=== PATIENT | male | born 1950 | race Caucasian/White ===

== ENCOUNTER 2020-11-25 13:51 | Observation (INO) ==
[2020-11-25] MEDS ORDERED: SODIUM CHLORIDE 0.9% 500 ML IV STA (14:06)
[2020-11-25] MEDS ORDERED: MoRPHine SULFATE 4 MG/ML 1 ML CARP\\VIAL IV PRN (14:06)
[2020-11-25] MEDS ORDERED: ONDANSETRON INJ 2 MG/ML 2 ML VIAL IV STA (14:06)
--- NOTE | 2020-11-25 14:11 | Emergency Department Note ---
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 He has had bilateral lower abdominal pain, vomiting, some loose stool. His pain has increased over the last couple of weeks and the pain is now a 9 on a scale of 1- 10. He has noticed a fever. He has had some cough, no congestion. No urinary complaints. No blood in the stool or the vomit. The patient denies ever having abdominal surgery. He denies eating anything that may have caused this issue. There have been no sick contacts. The patient does not use alcohol daily. He is on Eliquis for A. fib. REVIEW OF SYSTEMS: See HPI for pertinent positives and negatives. A total of ten systems were reviewed and were otherwise negative. PMHx/PSHx: See Below SOCIAL HISTORY: See Below. PHYSICAL EXAM: GENERAL: Patient is in no acute distress. HEENT: No acute trauma, normocephalic atraumatic, mucous membranes moist, no nasal congestion, no scleral icterus. NECK: No stridor, no adenopathy, no meningismus, trachea is midline. LUNGS: Clear to auscultation bilaterally, no wheeze, no rhonchi, breath sounds equal. HEART: Mildly tachycardic with an irregular rhythm, no obvious murmur. ABDOMEN: Soft, diffusely moderately tender, bowel sounds positive, no hernias, no peritonitis. Abdominal distention noted. EXTREMITIES: No cyanosis, full range of motion of all the joints without pain or difficulty, no signs for acute trauma. NEUROLOGIC: Oriented x 3, no acute motor or sensory deficits, no focal weakness. SKIN: No rash, no jaundice, no diaphoresis. DIFFERENTIAL DIAGNOSIS: Appendicitis, testicular torsion, infections, diverticulitis, UTI, obstruction, mesenteric ischemia, aortic pathology, inflammatory bowel disease, renal colic, PUD, pancreatitis, biliary pathology, hernia, volvulus, constipation, as well as other pathologies. EMERGENCY DEPARTMENT COURSE/PROCEDURES: ECG: Indication was abdominal pain. The ECG shows what appears to be atrial fibrillation with some PVCs. The rate is 93. The QTc is 460. There is an old septal infarct. There is some T wave inversion in the lateral leads. No ST elevation. Compared to an ECG from 03 June 2020, I see no significant change. Continuous Cardiac Monitoring: An order was placed for continuous cardiac monitoring. The monitor shows a rate of 85 with atrial fibrillation. MEDICAL DECISION MAKING: There is no leukocytosis or concerning anemia. There is a normal platelet count. There was a mild elevation to the INR at 1.2. Sodium was low at 127. No kidney failure. Lactic acid level was elevated consistent with possible infection versus dehydration. No concerning liver enzyme elevation. Ammonia level was normal. There was no pancreatitis. ECG shows atrial fibrillation, no acute ischemia. Cardiac enzyme testing x1 is not consistent with acute cardiac injury. Urinalysis does not show infection. Alcohol level was low at 5.6. Covid test was negative. Chest x-ray shows potential right lower lung pneumonia. No CHF. Abdominal and pelvis CT shows what appears to be an enteritis or ileus. There was a small amount of ascites. No signs of acute surgical process by CT scanning. On exam, the patient was not toxic. He was not febrile. He did not have peritonitis. The patient was given IV saline, 1 L. He received IV Zosyn as antibiotic coverage. He was given IV Zofran. He received IV morphine as needed for pain. The patient is hyponatremic. He has gastroenteritis or an ileus. He has been vomiting for 3 weeks. He has abdominal distention and abdominal pain. He may have a pneumonia based on his chest x-ray. Given his findings, given his history, I do think a hospital stay would be warranted. I did speak with the patient and case management. The on-call hospitalist was consulted. Past Med/Surg History Medical History Alcohol abuse Anxiety Atrial fibrillation CKD (chronic kidney disease), stage III COPD (chronic obstructive pulmonary disease) DM2 (diabetes mellitus, type 2) Fracture dislocation of right ankle GERD (gastroesophageal reflux disease) HLD (hyperlipidemia) HTN (hypertension) Left ventricular dysfunction Surgical History (Updated 11/25/20 @ 20:15 by Dayana Lopez PA-C) History of ankle surgery History of cardiac cath 2008-nonocclussive CAD Family History (Updated 11/25/20 @ 20:16 by Dayana Lopez PA-C) Brother Cancer pancreatic cancer Mother Diabetes Sister Diabetes Father Heart disease Social History Smoking Status: Former smoker Tobacco Type: Cigarettes Hx Alcohol Use: Yes Alcohol type: beer Hx Substance Use: No Preferred Language: Serbian Communication Ability: Effective Beliefs That Will Affect Care: None marital status: Unknown Current Living Situation: Alone How many Children do You have: 2 Feels Safe at Home: Yes Safety Concerns: Feels Safe At This Time Allergies Allergies Allergy/AdvReac Type Severity Reaction Status Date / Time No Known Allergies Allergy Verified 11/25/20 17:25 Home Meds Home Medications Medication Instructions Recorded Confirmed albuterol 90 - 180 mcg INHALATION Q4 PRN 11/25/20 11/25/20 apixaban [Eliquis] 5 mg PO BID 11/25/20 11/25/20 atorvastatin 40 mg PO DAILY 11/25/20 11/25/20 budesonide-formoterol [Symbicort] 2 puff INHALATION BID 11/25/20 11/25/20 lisinopril 5 mg PO DAILY 11/25/20 11/25/20 metformin 500 mg PO BID 11/25/20 11/25/20 metoprolol tartrate 25 mg PO BID 11/25/20 11/25/20 nortriptyline [Pamelor] 25 mg PO HS 11/25/20 11/25/20 polyethylene glycol 3350 [Miralax] 17 g PO DAILY PRN 11/25/20 11/25/20 semaglutide [Ozempic] 0.5 mg SUBCUT WK 11/25/20 11/25/20 Results & Data (ED) Vital Signs Vital Signs - 24 hr 11/25/20 13:54 11/25/20 15:00 11/25/20 17:00 Temperature 36.0 C L Temperature Source Oral Pulse Rate 104 H Pulse Rate [Apical] 85 101 H Pulse Rhythm Regular Pulse Rhythm [Apical] Regular Regular Pulse Strength Normal Pulse Strength [Apical] Normal Respiratory Rate 18 18 Respiratory Effort / Characteristics Non-Labored Spontaneous Non-Labored Spontaneous Respiratory Depth Normal Normal Respiratory Pattern Regular Blood Pressure 174/103 H Blood Pressure [Left Arm] 152/98 H Blood Pressure Mean 126 Blood Pressure Mean [Left Arm] 116 Blood Pressure Position Sitting Blood Pressure Position [Left Arm] Pulse Oximetry 98 98 94 Oxygen Delivery Method Room Air Room Air Room Air Sepsis Recent Fever Within 48 Hours No Sepsis New/Unexplained Change in Mental Status No Sepsis Action Taken by Nursing No Action Required 11/25/20 19:00 Temperature Temperature Source Pulse Rate Pulse Rate [Apical] 94 H Pulse Rhythm Pulse Rhythm [Apical] Pulse Strength Pulse Strength [Apical] Respiratory Rate 18 Respiratory Effort / Characteristics Non-Labored Spontaneous Respiratory Depth Normal Respiratory Pattern Blood Pressure Blood Pressure [Left Arm] 157/111 H Blood Pressure Mean Blood Pressure Mean [Left Arm] 126 Blood Pressure Position Blood Pressure Position [Left Arm] Semi-fowlers Pulse Oximetry 93 Oxygen Delivery Method Room Air Sepsis Recent Fever Within 48 Hours Sepsis New/Unexplained Change in Mental Status Sepsis Action Taken by Group Home Medications Current Medication List: was personally reviewed by me Laboratory Data Attestation: I reviewed the patient's lab results. Result diagrams: 11/26/20 08:15 11/26/20 08:15 Lab Results 11/25/20 11/25/20 11/25/20 Range/Units 13:23 14:52 14:52 WBC 8.50 (4.8-10.8) K/uL RBC 4.54 L (4.7-6.1) M/uL Hgb 14.3 (14.0-18.0) g/dL Hct 40.2 L (42-52) % MCV 88.5 (80-100) fL MCH 31.5 (25-34) pg MCHC 35.6 (32-36) g/dL RDW Std Deviation 43.6 (36.4-46.3) fL RDW Coeff of Cole 13.4 (11.5-14.5) % Plt Count 219 (130-400) K/uL MPV 11.0 H (7.4-10.4) fL Immature Gran % (Auto) 0.5 % Neut % (Auto) 67.2 % Lymph % (Auto) 21.5 % [place] % (Auto) 10.2 % Eos % (Auto) 0.2 % Baso % (Auto) 0.4 % Neut # (Auto) 5.71 (1.4-6.5) K/uL Lymph # (Auto) 1.83 (1.2-3.4) K/uL [place] # (Auto) 0.87 H (0.11-0.59) K/uL Eos # (Auto) 0.02 (0-0.5) K/uL Baso # (Auto) 0.03 (0-0.2) K/uL Immature Gran # (Auto) 0.04 H (0.00-0.02) K/uL PT 12.1 H (9.0-12.0) Seconds INR 1.2 H (0.9-1.1) APTT 29.1 (21.0-31.0) Seconds PTT Ratio 1.1 Sodium (136-145) mmol/L Potassium (3.5-5.1) mmol/L Chloride (98-107) mmol/L Carbon Dioxide (21-32) mmol/L Anion Gap (3-11) BUN (7-18) mg/dl Creatinine (0.6-1.4) mg/dl Est Cr Clr Drug Dosing Est GFR ( Amer) ml/min Est GFR (Non-Af Amer) ml/min BUN/Creatinine Ratio (10-20) Glucose (70-99) mg/dl Lactate (0.4-2.0) mmol/L Calcium (8.5-10.1) mg/dl Magnesium (1.8-2.4) mg/dl Total Bilirubin (0.2-1) mg/dl AST (15-37) U/L ALT (12-78) U/L Alkaline Phosphatase (45-117) U/L Ammonia (11-32) umol/L Troponin I (0-0.045) ng/ml NT-Pro-B Natriuret Pep (0-900) pg/ml Total Protein (6.4-8.2) gm/dl Albumin (3.4-5.0) gm/dl Globulin (2.5-4.0) gm/dl Albumin/Globulin Ratio (0.9-2) Lipase (73-393) U/L Procalcitonin < 0.05 (0-0.5) ng/ml Ethyl Alcohol mg/dL (0-3) mg/dl 11/25/20 11/25/20 11/25/20 Range/Units 14:52 14:52 14:52 WBC (4.8-10.8) K/uL RBC (4.7-6.1) M/uL Hgb (14.0-18.0) g/dL Hct (42-52) % MCV (80-100) fL MCH (25-34) pg MCHC (32-36) g/dL RDW Std Deviation (36.4-46.3) fL RDW Coeff of Cole (11.5-14.5) % Plt Count (130-400) K/uL MPV (7.4-10.4) fL Immature Gran % (Auto) % Neut % (Auto) % Lymph % (Auto) % [place] % (Auto) % Eos % (Auto) % Baso % (Auto) % Neut # (Auto) (1.4-6.5) K/uL Lymph # (Auto) (1.2-3.4) K/uL [place] # (Auto) (0.11-0.59) K/uL Eos # (Auto) (0-0.5) K/uL Baso # (Auto) (0-0.2) K/uL Immature Gran # (Auto) (0.00-0.02) K/uL PT (9.0-12.0) Seconds INR (0.9-1.1) APTT (21.0-31.0) Seconds PTT Ratio Sodium 127 L (136-145) mmol/L Potassium 4.1 (3.5-5.1) mmol/L Chloride 92 L (98-107) mmol/L Carbon Dioxide 25 (21-32) mmol/L Anion Gap 10.0 (3-11) BUN 13 (7-18) mg/dl Creatinine 0.98 (0.6-1.4) mg/dl Est Cr Clr Drug Dosing Not Reportable Est GFR ( Amer) 90.8 ml/min Est GFR (Non-Af Amer) 78.4 ml/min BUN/Creatinine Ratio 12.9 (10-20) Glucose 271 H (70-99) mg/dl Lactate 2.9 H* (0.4-2.0) mmol/L Calcium 8.5 (8.5-10.1) mg/dl Magnesium 2.2 (1.8-2.4) mg/dl Total Bilirubin 0.6 (0.2-1) mg/dl AST 78 H (15-37) U/L ALT 64 (12-78) U/L Alkaline Phosphatase 109 (45-117) U/L Ammonia 14.0 (11-32) umol/L Troponin I 0.038 (0-0.045) ng/ml NT-Pro-B Natriuret Pep (0-900) pg/ml Total Protein 7.4 (6.4-8.2) gm/dl Albumin 3.7 (3.4-5.0) gm/dl Globulin 3.7 (2.5-4.0) gm/dl Albumin/Globulin Ratio 1.0 (0.9-2) Lipase 118 (73-393) U/L Procalcitonin (0-0.5) ng/ml Ethyl Alcohol mg/dL (0-3) mg/dl 11/25/20 11/25/20 Range/Units 14:52 15:23 WBC (4.8-10.8) K/uL RBC (4.7-6.1) M/uL Hgb (14.0-18.0) g/dL Hct (42-52) % MCV (80-100) fL MCH (25-34) pg MCHC (32-36) g/dL RDW Std Deviation (36.4-46.3) fL RDW Coeff of Cole (11.5-14.5) % Plt Count (130-400) K/uL MPV (7.4-10.4) fL Immature Gran % (Auto) % Neut % (Auto) % Lymph % (Auto) % [place] % (Auto) % Eos % (Auto) % Baso % (Auto) % Neut # (Auto) (1.4-6.5) K/uL Lymph # (Auto) (1.2-3.4) K/uL [place] # (Auto) (0.11-0.59) K/uL Eos # (Auto) (0-0.5) K/uL Baso # (Auto) (0-0.2) K/uL Immature Gran # (Auto) (0.00-0.02) K/uL PT (9.0-12.0) Seconds INR (0.9-1.1) APTT (21.0-31.0) Seconds PTT Ratio Sodium (136-145) mmol/L Potassium (3.5-5.1) mmol/L Chloride (98-107) mmol/L Carbon Dioxide (21-32) mmol/L Anion Gap (3-11) BUN (7-18) mg/dl Creatinine (0.6-1.4) mg/dl Est Cr Clr Drug Dosing Est GFR ( Amer) ml/min Est GFR (Non-Af Amer) ml/min BUN/Creatinine Ratio (10-20) Glucose (70-99) mg/dl Lactate (0.4-2.0) mmol/L Calcium (8.5-10.1) mg/dl Magnesium (1.8-2.4) mg/dl Total Bilirubin (0.2-1) mg/dl AST (15-37) U/L ALT (12-78) U/L Alkaline Phosphatase (45-117) U/L Ammonia (11-32) umol/L Troponin I (0-0.045) ng/ml NT-Pro-B Natriuret Pep 9733 H (0-900) pg/ml Total Protein (6.4-8.2) gm/dl Albumin (3.4-5.0) gm/dl Globulin (2.5-4.0) gm/dl Albumin/Globulin Ratio (0.9-2) Lipase (73-393) U/L Procalcitonin (0-0.5) ng/ml Ethyl Alcohol mg/dL 5.6 H (0-3) mg/dl Administered Medications Apixaban (Apixaban 5 Mg Tablet) 5 mg PO BID [facility] Stop: 12/25/20 23:25 Last Admin: 11/26/20 08:26 Dose: 5 mg Documented by: [id number] Admin: 11/26/20 01:15 Dose: 5 mg Documented by: [id number] Atorvastatin Calcium (Atorvastatin 40 Mg Tab) 40 mg PO DAILY [facility] Stop: 12/26/20 08:59 Last Admin: 11/26/20 08:25 Dose: 40 mg Documented by: [id number] Chlordiazepoxide HCl (Chlordiazepoxide Hcl 25 Mg Cap) 25 mg PO Q6H [facility]; Taper Stop: 11/27/20 23:59 Last Admin: 11/26/20 12:56 Dose: 25 mg Documented by: [id number] Admin: 11/26/20 05:24 Dose: 25 mg Documented by: [id number] Admin: 11/26/20 01:17 Dose: 25 mg Documented by: [id number] Fluticasone/Vilanterol (Fluticasone/Vilanterol 200/25mcg 14 Puffs/Inhaler) 1 puffs INH DAILY [facility] Stop: 12/26/20 08:59 Last Admin: 11/26/20 08:32 Dose: 1 puffs Documented by: [id number] Folic Acid (Folic Acid 1 Mg Tab) 1 mg PO QAM [facility] Stop: 12/26/20 08:59 Last Admin: 11/26/20 08:26 Dose: 1 mg Documented by: [id number] Piperacillin Sod/Tazobactam (Sod 3.375 gm/ Dextrose) 115 mls @ 28.75 mls/hr IV Q8H [facility]; Protocol Stop: 12/06/20 03:59 Last Admin: 11/26/20 13:24 Dose: 28.8 mls/hr Documented by: [id number] Infusion: 11/26/20 08:50 Dose: 0 mls/hr Documented by: [id number] Admin: 11/26/20 04:08 Dose: 28.8 mls/hr Documented by: [id number] Insulin Aspart (Insulin Aspart 100 Units/Ml 3 Ml Pen) 0 units SC ACHS [facility] Stop: 12/25/20 23:25 Last Admin: 11/26/20 12:12 Dose: 3 units Documented by: [id number] Cosigned by: [id number] Admin: 11/26/20 08:29 Dose: 2 units Documented by: [id number] Cosigned by: [id number] Admin: 11/26/20 01:14 Dose: 3 units Documented by: [id number] Cosigned by: [id number] Insulin Glargine (Insulin Glargine Solostar 100 Units/Ml 3 Ml Pen) 0 units SC BID [facility] Stop: 12/25/20 23:25 Last Admin: 11/26/20 08:30 Dose: 10 units Documented by: [id number] Cosigned by: [id number] Admin: 11/26/20 01:14 Dose: 10 units Documented by: [id number] Cosigned by: [id number] Ipratropium [place] (Ipratropium [place] Neb Soln 0.02% 2.5 Ml Vial) 0.5 mg INH Q6R [facility] Stop: 12/26/20 00:59 Last Admin: 11/26/20 13:14 Dose: 0.5 mg Documented by: [id number] Admin: 11/26/20 07:44 Dose: 0.5 mg Documented by: [id number] Admin: 11/26/20 01:00 Dose: 0.5 mg Documented by: [id number] Levalbuterol HCl (Levalbuterol 1.25mg/0.5ml Neb) 1.25 mg INH Q6R [facility] Stop: 12/26/20 00:59 Last Admin: 11/26/20 13:14 Dose: 1.25 mg Documented by: [id number] Admin: 11/26/20 07:44 Dose: 1.25 mg Documented by: [id number] Admin: 11/26/20 01:00 Dose: 1.25 mg Documented by: [id number] Lisinopril (Lisinopril 5 Mg Tab) 5 mg PO DAILY [facility] Stop: 12/26/20 08:59 Last Admin: 11/26/20 09:23 Dose: 5 mg Documented by: [id number] Metoprolol Tartrate (Metoprolol Tartrate 25 Mg Tab) 25 mg PO BID [facility] Stop: 12/25/20 23:25 Last Admin: 11/26/20 09:24 Dose: 25 mg Documented by: [id number] Admin: 11/26/20 01:15 Dose: 25 mg Documented by: [id number] Multivitamins (Multivitamin Tab) [facility] Stop: 12/26/20 08:59 Last Admin: 11/26/20 09:24 Dose: 1 tab Documented by: [id number] Nortriptyline HCl (Nortriptyline Hcl 25 Mg Cap) 25 mg PO HS [facility] Stop: 12/25/20 23:25 Last Admin: 11/26/20 01:15 Dose: 25 mg Documented by: [id number] Thiamine HCl (Thiamine Hcl 100 Mg Tab) 100 mg PO QAM [facility] Stop: 12/26/20 08:59 Last Admin: 11/26/20 09:23 Dose: 100 mg Documented by: [id number] Discontinued Medications Albuterol (Albut/Ipratrop 3mg/0.5mg Neb 3 Ml Vial) 3 ml NEB NOW STA Stop: 11/25/20 19:22 Last Admin: 11/25/20 20:30 Dose: 3 ml Documented by: [id number] Furosemide (Furosemide 40 Mg/4 Ml Vial) 60 mg IV NOW STA Stop: 11/25/20 19:38 Last Admin: 11/25/20 22:18 Dose: 80 mg Documented by: [id number] Sodium Chloride (Nss) 500 mls @ 999 mls/hr IV .Q31M STA Stop: 11/25/20 14:36 Last Infusion: 11/25/20 16:14 Dose: 0 mls/hr Documented by: [id number] Admin: 11/25/20 15:00 Dose: 999 mls/hr Documented by: [id number] Piperacillin Sod/Tazobactam Sod (Zosyn) 4.5 gm in 120 mls @ 240 mls/hr IV NOW ONE Stop: 11/25/20 15:33 Last Infusion: 11/25/20 16:24 Dose: 0 mls/hr Documented by: [id number] Admin: 11/25/20 15:54 Dose: 240 mls/hr Documented by: [id number] Sodium Chloride (Nss 1000ml) 500 mls @ 999 mls/hr IV .Q31M ONE Stop: 11/25/20 16:34 Last Infusion: 11/25/20 17:40 Dose: 0 mls/hr Documented by: [id number] Admin: 11/25/20 17:08 Dose: 999 mls/hr Documented by: [id number] Ioversol (Optiray 320 150ml) 100 ml IV ONCE ONE Stop: 11/25/20 16:58 Last Admin: 11/25/20 16:57 Dose: 100 ml Documented by: [id number] Lisinopril (Lisinopril 5 Mg Tab) 5 mg PO NOW STA Stop: 11/25/20 21:22 Last Admin: 11/25/20 22:18 Dose: 5 mg Documented by: [id number] Morphine Sulfate (Morphine Sulfate 4 Mg/Ml 1 Ml Carp\Vial) 4 mg IV Q15M PRN PRN Reason: Pain Stop: 12/09/20 14:05 Last Admin: 11/25/20 15:00 Dose: 4 mg Documented by: [id number] Ondansetron HCl (Ondansetron Inj 2 Mg/Ml 2 Ml Vial) 4 mg IV NOW STA Stop: 11/25/20 14:07 Last Admin: 11/25/20 15:00 Dose: 4 mg Documented by: [id number] Potassium Chloride (Potassium Chloride Crtab 20 Meq Tabcr) 40 meq PO ONE ONE Stop: 11/26/20 09:20 Last Admin: 11/26/20 09:36 Dose: 40 meq Documented by: [id number] Imaging Data Radiologist's Impression: Chest X-Ray 11/25/20 14:06 XR chest 1V portable CLINICAL HISTORY: Pain, radiating to the abdomen COMPARISON STUDY: 06/03/2020 FINDINGS: The heart is enlarged. There is no failure. There are increased right basilar markings, possibly representing a pneumonitis. There is mild mediastinal fullness. This appears to be secondary to fat deposition on the prior CT scan performed December 2019[. There is no free intraperitoneal air IMPRESSION: 1. Subtle right basilar airspace opacities possibly representing a pneumonitis. Clinical and radiographic follow-up are recommended ACT 112: Negative or not required by law. Electronically signed by: Alejandro Witt M.D. 11/25/2020 2:48 PM ABDOMEN AND PELVIS CT WITH IV CONTRAST CT DOSE: 893.63 mGycm HISTORY: Acute generalized abdominal pain and nausea with possible bowel obstruction poss obstruc TECHNIQUE: Multiaxial CT images of the abdomen and pelvis were performed following the IV administration of 100 cc of Optiray, A dose lowering technique was utilized adhering to the principles of ALARA. COMPARISON STUDY: CT abdomen pelvis 12/26/2019 FINDINGS: Cardiac megaly. Coronary artery calcifications. Moderate right and small left pleural effusions. Dependent bibasilar opacities suggest atelectasis. No pneumatosis or pneumoperitoneum. Unremarkable spleen, pancreas and adrenal glands. Mild gallbladder distention with equivocal wall thickening. Mild pericholecystic edema/fluid. There is suggested hepatic steatosis. The liver is otherwise unremarkable. Mixing artifact noted within the portal vein. Unremarkable kidneys. There is no hydronephrosis. Mild to moderate urinary bladder wall thickening. Prostamegaly. Severe atherosclerotic plaque of the abdominal aorta and branch vessels. There is severe narrowing of the right common femoral artery. No adenopathy. 1.3 cm fatty attenuating focus of the descending colon 9 image 225, possibly a lipoma. The visualized appendix is noninflamed. No bowel obstruction or bowel wall thickening. There are a few scattered small bowel air-fluid levels noted within the abdomen and pelvis. Trace abdominal pelvic ascites. Calcifications of the subcutaneous left chest wall anteriorly. Degenerative changes of the spine, pelvis and hips. IMPRESSION: 1. Moderate right and small left pleural effusions with trace abdominopelvic ascites. 2. No bowel obstruction or bowel wall thickening. Noninflamed appendix. 3. Scattered small bowel air-fluid levels within the abdomen and pelvis are likely physiologic. Considering reported clinical history of nausea, a mild enteritis could appear similarly. 4. Prostamegaly with urinary bladder wall thickening suggestive of chronic bladder outlet obstruction. Correlate with urinalysis. 5. Equivocal wall thickening of the gallbladder, likely secondary to volume overload. ACT 112: Negative or not required by law. The above report was generated using voice recognition software. It may contain grammatical, syntax or spelling errors. Electronically signed by: Gino Wagner M.D. 11/25/2020 5:16 PM Discharge Plan Visit Data Chief Complaint: Abdominal Pain Stated Complaint: ABDOMINAL PAINS,VOMITING,LIGHTHEADED ED Provider: Darren Avendaño Discharge Problem: Lower abdominal pain, Vomiting, Alcohol abuse, Acute hyponatremia, Cough Patient Disposition: Admitted As Inpatient Condition: Fair Discharge Instructions Interventions: ED Discharge Assessment Last Done: 11/25/20 22:35 Discharge Problem: Vomiting Qualifiers: Vomiting type: unspecified Vomiting Intractability: non-intractable Nausea presence: with nausea Qualified Code(s): R11.2 - Nausea with vomiting, unspecified
--- NOTE | 2020-11-25 14:50 | XRay Report ---
XR chest 1V portable CLINICAL HISTORY: Pain, radiating to the abdomen COMPARISON STUDY: 06/03/2020 FINDINGS: The heart is enlarged. There is no failure. There are increased right basilar markings, pos sibly representing a pneumonitis. There is mild mediastinal fullness. This appears to be secondary to fat deposition on the prior CT scan performed December 2019[. There is no free intraperitoneal air IMPRESSION: 1. Subtle right basilar airspace opacities possibly representing a pneumonitis. Clinical and radiogra [facility] follow-up are recommended ACT 112: Negative or not required by law. Electronically signed by: Alejandro Witt M.D. 11/25/2020 2:48 PM
[2020-11-25] MEDS ORDERED: PIPERACILL/TAZOBAC CONSULT ACTIVE PRN (15:04)
[2020-11-25] MEDS ORDERED: PIPERACILLIN/TAZOBACTAM 4.5 GM/120 ML BAG IV ONE (15:04)
[2020-11-25 15:10] LABS: Basophils # (auto) 0.03 K/uL (0-0.2); Basophils % (auto) 0.4 %; Eosinophils # (auto) 0.02 K/uL (0-0.5); Eosinophils % (auto) 0.2 %; Hematocrit (blood only) 40.2 % (42-52); Hemoglobin 14.3 g/dL (14.0-18.0); Immature Granulocytes # (auto) 0.04 K/uL (0.00-0.02); Immature Granulocytes % (auto) 0.5 %; Lymphocytes # (auto) 1.83 K/uL (1.2-3.4); Lymphocytes % (auto) 21.5 %; Mean Corpuscular Hemoglobin 31.5 pg (25-34); Mean Corpuscular Hgb Conc 35.6 g/dL (32-36); Mean Corpuscular Volume 88.5 fL (80-100); Monocytes # (auto) 0.87 K/uL (0.11-0.59); Monocytes % (auto) 10.2 %; Neutrophils # (auto) 5.71 K/uL (1.4-6.5); Neutrophils % (auto) 67.2 %; Platelet Count 219 K/uL (130-400); RDW Coefficient of Variation 13.4 % (11.5-14.5); RDW Standard Deviation 43.6 fL (36.4-46.3); Red Blood Count 4.54 M/uL (4.7-6.1)
[2020-11-25 15:26] LABS: INR 1.2 (0.9-1.1); Partial Thromboplastin Ratio 1.1; Partial Thromboplastin Time 29.1 Seconds (21.0-31.0); Prothrombin Time 12.1 Seconds (9.0-12.0)
[2020-11-25 15:30] LABS: Alanine Aminotransferase 64 U/L (12-78); Albumin Level 3.7 gm/dl (3.4-5.0); Aspartate Aminotransferase 78 U/L (15-37); BUN Creatinine Ratio 12.9 (10-20); Blood Urea Nitrogen 13 mg/dl (7-18); Calcium 8.5 mg/dl (8.5-10.1); Carbon Dioxide 25 mmol/L (21-32); Chloride 92 mmol/L (98-107); Est GFR (African American) 90.8 ml/min; Est GFR (Non-African American) 78.4 ml/min; Glucose 271 mg/dl (70-99); Lipase 118 U/L (73-393); Magnesium 2.2 mg/dl (1.8-2.4); Potassium 4.1 mmol/L (3.5-5.1); Sodium 127 mmol/L (136-145)
[2020-11-25 15:35] LABS: Alkaline Phosphatase 109 U/L (45-117); Bilirubin,Total 0.6 mg/dl (0.2-1); Globulin 3.7 gm/dl (2.5-4.0); Total Protein 7.4 gm/dl (6.4-8.2); Troponin I 0.038 ng/ml (0-0.045)
[2020-11-25] MEDS ORDERED: SODIUM CHLORIDE 0.9% 1000ML 500 ML IV ONE (16:04)
[2020-11-25] MEDS ORDERED: OPTIRAY 320 150ml IV ONE ×2 (16:51→16:57)
--- NOTE | 2020-11-25 17:17 | CT Scan Report ---
ABDOMEN AND PELVIS CT WITH IV CONTRAST CT DOSE: 893.63 mGycm HISTORY: Acute generalized abdominal pain and nausea with possible bowel obstruction poss obstruc TECHNIQUE: Multiaxial CT images of the abdomen and pelvis were performed following the IV administrat ion of 100 cc of Optiray, A dose lowering technique was utilized adhering to the principles of ALARA . COMPARISON STUDY: CT abdomen pelvis 12/26/2019 FINDINGS: Cardiac megaly. Coronary artery calcifications. Moderate right and small left pleural effusions. Depe ndent bibasilar opacities suggest atelectasis. No pneumatosis or pneumoperitoneum. Unremarkable splee n, pancreas and adrenal glands. Mild gallbladder distention with equivocal wall thickening. Mild murali cholecystic edema/fluid. There is suggested hepatic steatosis. The liver is otherwise unremarkable. M ixing artifact noted within the portal vein. Unremarkable kidneys. There is no hydronephrosis. Mild to moderate urinary bladder wall thickening. P rostamegaly. Severe atherosclerotic plaque of the abdominal aorta and branch vessels. There is severe narrowing of the right common femoral artery. No adenopathy. 1.3 cm fatty attenuating focus of the descending colon 9 image 225, possibly a lipoma. The visualized appendix is noninflamed. No bowel obstruction or bowel wall thickening. There are a few scattered sm all bowel air-fluid levels noted within the abdomen and pelvis. Trace abdominal pelvic ascites. Calci fications of the subcutaneous left chest wall anteriorly. Degenerative changes of the spine, pelvis a nd hips. IMPRESSION: 1. Moderate right and small left pleural effusions with trace abdominopelvic ascites. 2. No bowel obstruction or bowel wall thickening. Noninflamed appendix. 3. Scattered small bowel air-fluid levels within the abdomen and pelvis are likely physiologic. Consi dering reported clinical history of nausea, a mild enteritis could appear similarly. 4. Prostamegaly with urinary bladder wall thickening suggestive of chronic bladder outlet obstruction . Correlate with urinalysis. 5. Equivocal wall thickening of the gallbladder, likely secondary to volume overload. ACT 112: Negative or not required by law. The above report was generated using voice recognition software. It may contain grammatical, syntax o r spelling errors. Electronically signed by: Gino Wagner M.D. 11/25/2020 5:16 PM
[2020-11-25] MEDS ORDERED: ALBUT/IPRATROP 3MG/0.5MG NEB 3 ML VIAL NEB STA (19:21)
[2020-11-25] MEDS ORDERED: FUROSEMIDE 40 MG/4 ML VIAL IV STA (19:37)
--- NOTE | 2020-11-25 19:44 | History & Physical Report ---
Date of Service November 25, 2020 Assessment & Plan (1) Fluid overload: (2) Leg edema: (3) SOB (shortness of breath): H/O left ventricular dysfunction (Echo 07/2020 EF: 35%) Pt is 70 y/o M with PMH DM II, CKD III, COPD, HLD, atrial fibrillation on Eliquis, left ventricular dysfunction with EF 35-39% in 07/2020, anxiety, GERD presented to ER with complaint of abdominal distention, shortness of breath. Increased SOB, abdominal distension, BLE edema, orthopnea over past 3 weeks In ER pt afebrile, P: 104, R: 18, BP: 174/103, 98% on RA. No leukocytosis, Lactate: 2.9, procalcitonin: <0.05. CXR: Subtle right basilar airspace opacities possibly representing a pneumonitis. Clinical and radiographic follow-up are recommended SOB likely secondary to fluid overload secondary to systolic CHF, possible COPD exacerbation however without wheezing on exam. Possible pneumonia In ER given 1L NSS, zosyn -Blood cultures pending -Hold on further IVF at this time as is volume overloaded on exam -Dose Lasix 60mg IV now -Low sodium diet, monitor I&O's, daily weight -BNP pending -Nebs Q6H -Continue home inhalers -Continue Zosyn for now -Repeat lactate 1.8 -Echo -Cardiology consult -RLE edema greater than LLE. Pending Doppler to R/O DVT (4) Abdominal distention: (5) Vomiting: C/O abdominal distension x 3 weeks. Vomiting, diarrhea x 3 days No leukocytosis, normal lipase, AST:78, ALT: 64, ALK Phos: 109, INR: 1.2, UA: unreamarkable CT ABD/PELVIS: Moderate right and small left pleural effusions with trace abdominopelvic ascites. No bowel obstruction or bowel wall thickening. Noninflamed appendix. Scattered small bowel air-fluid levels within the abdomen and pelvis are likely physiologic. Considering reported clinical history of nausea, a mild enteritis could appear similarly. Prostamegaly with urinary bladder wall thickening suggestive of chronic bladder outlet obstruction. Correlate with urinalysis. Equivocal wall thickening of the gallbladder, likely secondary to volume overload. Abdominal distention likely secondary to volume overload. Possible ascites DDX: Enteritis. Does not have tenderness on abdominal exam at this time, less likely mesenteric ischemia -Clear liquid diet for now -Repeat lactate: 1.8 -obtain c-diff, stool cultures if recurrent diarrhea -CBC, CMP in am -If no improvement may need to consider US for ascites or GI consult (6) Hyponatremia: Na: 127; was 130-133 in 2019 -Received 1L NSS in ER -Monitor BMP (7) Atrial fibrillation: On Eliquis A-fib, rate 104 down to 90's in ER -Continue Eliquis -Continue metoprolol tartrate (8) DM2 (diabetes mellitus, type 2): A1c: 9.3 on 07/2020 -Hold metformin, Ozempic -Basal bolus insulin per protocol (9) CKD (chronic kidney disease), stage III: Cr: 0.98 -Monitor renal functions, avoid nephrotoxic agents when possible (10) HTN (hypertension): In ER BP: 174/103 down to 152/98 -Continue lisinopril, metoprolol tartrate (11) Alcohol abuse: Drinks at least 6 drinks daily. Last drink this am ETOH level: 5.6 -Alcohol withdrawal protocol -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, thiamine, folic acid daily DVT Prophylaxis -On Eliquis Full Code as per discussion with pt Follows with Dr De for routine care Pt was seen and care coordinated with Dr Buchanan. See addendum History of Present Illness Chief Complaint: Abdominal distention, SOB Primary Care Provider: Samir De MD Pt is 70 y/o M with PMH DM II, CKD III, COPD, HLD, atrial fibrillation on Eliquis, left ventricular dysfunction with EF 35-39% in 07/2020, anxiety, GERD presented to ER with complaint of abdominal distention, shortness of breath. Patient reports noticing increased abdominal distention for at least the past 3 weeks. Reports "gurgling" sensation to lower abdomen that he reports feels uncomfortable but does denies severe pain. Past 3 days with vomiting and reports had 2 episodes diarrhea. Tried taking Pepto-Bismol and Mylanta without much improvement. Also reports noticing increased bilateral lower extremity edema over the past several weeks, right extremity worse. Reports orthopnea worsening over the past month, but thinks has had it longer. Also complains of cough. Sometimes reports is productive but is unable to further describe. Reports ongoing SOB that has worsened over past month or so. States history of COPD and has wheezing episodes several times a day. He has been using his albuterol inhaler 4 times a day with relief of wheezing, no improvement of or thopnea. Did not have COVID-19 vaccine yet. Denies any ill contacts. Pt states drinks at least 6 beers a day. Last drank this morning. Denies history alcohol withdrawal. Denies fever/chills, diaphoresis, hematemesis, hematochezia, melena, FISHER, dizziness, syncope, vision changes, neck pain, CP, palpitations, hemoptysis, sore throat, choking, otalgia, rhinorrhea, paresthesias, weakness, rashes, uri nary symptoms. Allergies Allergy/AdvReac Type Severity Reaction Status Date / Time No Known Allergies Allergy Verified 11/25/20 17:25 Home Medications Medication Instructions Recorded Confirmed Type albuterol 90 - 180 mcg INHALATION Q4 PRN 11/25/20 11/25/20 History apixaban [Eliquis] 5 mg PO BID 11/25/20 11/25/20 History atorvastatin 40 mg PO DAILY 11/25/20 11/25/20 History budesonide-formoterol [Symbicort] 2 puff INHALATION BID 11/25/20 11/25/20 Hist ory lisinopril 5 mg PO DAILY 11/25/20 11/25/20 History metformin 500 mg PO BID 11/25/20 11/25/20 History metoprolol tartrate 25 mg PO BID 11/25/20 11/25/20 History nortriptyline [Pamelor] 25 mg PO HS 11/25/20 11/25/20 History polyethylene glycol 3350 [Miralax] 17 g PO DAILY PRN 11/25/20 11/25/20 History semaglutide [Ozempic] 0.5 mg SUBCUT WK 11/25/20 11/25/20 History Past Med/Surg History Medical History (Updated 11/25/20 @ 20:49 by Dayana Lopez PA-C) Alcohol abuse Anxiety Atrial fibrillation CKD (chronic kidney disease), stage III COPD (chronic obstructive pulmonary disease) DM2 (diabetes mellitus, type 2) Fracture dislocation of right ankle GERD (gastroesophageal reflux disease) HLD (hyperlipidemia) HTN (hypertension) Left ventricular dysfunction Surgical History (Updated 11/25/20 @ 20:15 by Dayana Lopez PA-C) History of ankle surgery History of cardiac cath 2009-nonocclussive CAD Family History (Updated 11/25/20 @ 20:16 by Dayana Lopez PA-C) Brother Cancer pancreatic cancer Mother Diabetes Sister Diabetes Father Heart disease Social History (Updated 11/25/20 @ 20:17 by Dayana Lopez PA-C) Smoking Status: Former smoker Tobacco Type: Cigarettes Hx Alcohol Use: Yes (at least 6 beers/day) Alcohol type: beer Hx Substance Use: No Feels Safe at Home: Yes Review of Systems Review of Systems: All systems reviewed & are unremarkable except as noted in HPI & below Physical Exam Physical Exam: General: no distress, overweight Head: normocephalic, atraumatic Eyes: PERRL, EOM's intact, conjunctiva non-injected, anicteric ENT: hard of hearing, normal inspection external ears, nose, mucous membranes moist Neck: supple, trachea midline Lungs: +orthopnea, 94% on RA, +rales bilateral bases, no wheezing/rhonchi CV: irregularly irregular, rate 98, no murmur, +2-3 pretibial edema, right LE worse than left Abd: +distended, normal BS, soft, non-tender to palpation Ext: no cyanosis, no erythema, no calf tenderness Neuro: A&O x 3, no focal deficits noted, normal affect Skin: warm, dry Results & Data Results & Data ([facility]) Vital Signs (Past 12 Hours) Vital Signs Temp Pulse Pulse Resp BP BP Pulse Ox 11/25/20 17:00 101 H 18 152/98 H 94 11/25/20 15:00 85 98 11/25/20 13:54 36.0 C L 104 H 18 174/103 H 98 Laboratory Results Short CBC 11/25/20 Range/Units 14:52 WBC 8.50 (4.8-10.8) K/uL Hgb 14.3 (14.0-18.0) g/dL Hct 40.2 L (42-52) % Plt Count 219 (130-400) K/uL BMP 11/25/20 14:52 Sodium 127 L Potassium 4.1 Chloride 92 L Carbon Dioxide 25 BUN 13 Creatinine 0.98 Glucose 271 H Calcium 8.5 Cardiac Enzymes 11/25/20 Range/Units 14:52 Troponin I 0.038 (0-0.045) ng/ml Liver Function 11/25/20 Range/Units 14:52 Total Bilirubin 0.6 (0.2-1) mg/dl AST 78 H (15-37) U/L ALT 64 (12-78) U/L Alkaline Phosphatase 109 (45-117) U/L Albumin 3.7 (3.4-5.0) gm/dl Diagnostic Findings Abdomen/Pelvis CT 11/25/20 14:[address] WITH IV CONTRAST CT DOSE: 893.63 mGycm HISTORY: Acute generalized abdominal pain and nausea with possible bowel obstruction poss obstruc TECHNIQUE: Multiaxial CT images of the abdomen and pelvis were performed following the IV administration of 100 cc of Optiray, A dose lowering technique was utilized adhering to the principles of ALARA. COMPARISON STUDY: CT abdomen pelvis 12/26/2019 FINDINGS: Cardiac megaly. Coronary artery calcifications. Moderate right and small left pleural effusions. Dependent bibasilar opacities suggest atelectasis. No pneumatosis or pneumoperitoneum. Unremarkable spleen, pancreas and adrenal glands. Mild gallbladder distention with equivocal wall thickening. Mild pericholecystic edema/fluid. There is suggested hepatic steatosis. The liver is otherwise unremarkable. Mixing artifact noted within the portal vein. Unremarkable kidneys. There is no hydronephrosis. Mild to moderate urinary bladder wall thickening. Prostamegaly. Severe atherosclerotic plaque of the abdominal aorta and branch vessels. There is severe narrowing of the right common femoral artery. No adenopathy. 1.3 cm fatty attenuating focus of the descending colon 9 image 225, possibly a lipoma. The visualized appendix is noninflamed. No bowel obstruction or bowel wall thickening. There are a few scattered small bowel air-fluid levels noted within the abdomen and pelvis. Trace abdominal pelvic ascites. Calcifications of the subcutaneous left chest wall anteriorly. Degenerative changes of the spine, pelvis and hips. IMPRESSION: 1. Moderate right and small left pleural effusions with trace abdominopelvic ascites. 2. No bowel obstruction or bowel wall thickening. Noninflamed appendix. 3. Scattered small bowel air-fluid levels within the abdomen and pelvis are likely physiologic. Considering reported clinical history of nausea, a mild enteritis could appear similarly. 4. Prostamegaly with urinary bladder wall thickening suggestive of chronic bladder outlet obstruction. Correlate with urinalysis. 5. Equivocal wall thickening of the gallbladder, likely secondary to volume overload. ACT 112: Negative or not required by law. The above report was generated using voice recognition software. It may contain grammatical, syntax or spelling errors. Electronically signed by: Gino Wagner M.D. 11/25/2020 5:16 PM Chest X-Ray 11/25/20 14:06 XR chest 1V portable CLINICAL HISTORY: Pain, radiating to the abdomen COMPARISON STUDY: 06/03/2020 FINDINGS: The heart is enlarged. There is no failure. There are increased right basilar markings, possibly representing a pneumonitis. There is mild mediastinal fullness. This appears to be secondary to fat deposition on the prior CT scan performed December 2019[. There is no free intraperitoneal air IMPRESSION: 1. Subtle right basilar airspace opacities possibly representing a pneumonitis. Clinical and radiographic follow-up are recommended ACT 112: Negative or not required by law. Electronically signed by: Alejandro Witt M.D. 11/25/2020 2:48 PM Code Status & VTE Plan VTE Prophylaxis Plan VTE Prophylaxis will be ordered: Yes Supervising Physician Co-Signing Physician Notes I saw this patient with the physician university administrative assistant, I participated in the history, physical, review of systems, and physical exam. I reviewed the medications with the patient and the physician university administrative assistant and helped reconcile the medications. I helped take a detailed family and social history as well. I formulated the assessment and plan personally with the physician university administrative assistant and went over it with the patient. ROS-No Headache, No Visual Changes, No Nausea, No Vomiting, No Fever, No Chills, No Neck Pain or Stiffness, No Chest Pain, No Palpitations, + SOB, + KAPLAN, +Cough, No Sputum, No Wheezing, No Abdominal Pain, No Diarrhea, No Hematemesis, No Hemoptysis, No Unexpected Weight Loss, No Flank pain, No Melena, No Hematochezia, No Frequency, No Urgency, No Burning, No Hematuria, No Rashes, No Diaphoresis. Appetite is Normal, +Edema Physical Exam Gen-AAO x 3, NAD, Afebrile Head-NCAT, EOMI, PERRLA, Anicteric Sclera, No Posterior Pharyngeal Erythema Neck-Supple, No JVD, No Thyromegaly, No Masses, No LAD, No Bruits Lungs- +Rales Bilat, No Rhonchi, No Wheezing, No Crepitus Chest-No S4, +S1, +S2, No S3, No Murmurs, No Rubs, No Gallops, No Ectopy Abdomen-Soft, Bowel Sounds Present, Non Tender, Non Distended, No Hepatomegaly, No Splenomegaly, No Palpable Masses, No Rebound, No Rigidity, No Guarding Musculoskeletal-Full Range of Motion Bilaterally, No CVAT Extremities-No Cyanosis, No Clubbing, + Edema Nuero-Cranial Nerves II-XII grossly intact, Motor WNL, DTRs WNL, Strength WNL, Non Focal Psych-Normal Mood
[2020-11-25 20:37] LABS: Appearance Urine Clear (Clear); Bacteria Urine Automated Negative (Negative); Bilirubin Urine Negative (Negative); Blood Urine Negative (Negative); Cast Urine Automated 0 /lpf (0-5); Color Urine Yellow; Epithelial Cell Urine Auto 0-5 /lpf (0-5); Glucose Urine UA 3+ (Negative); Ketones Urine Negative (Negative); Leukocyte Esterase Urine Negative (Negative); Nitrite Urine Negative (Negative); Protein Urine Trace (Negative); RBC Urine Automated 0-4 /hpf (0-4); Specific Gravity Urine 1.011 (1.000-1.030); Urobilinogen Urine Negative (Negative); WBC Urine Automated 0 /hpf (0-5)
[2020-11-25] MEDS ORDERED: lisinopril 5 MG TAB PO STA (21:21)
[2020-11-25] MEDS ORDERED: LORazepam 1 MG/2 ML VIAL IV PRN (23:26)
[2020-11-25] MEDS ORDERED: ACETAMINOPHEN 325 MG TAB PO PRN (23:26)
[2020-11-25] MEDS ORDERED: CARBOHYDRATES FOR HYPOGLYCEMIA PO PRN (23:26)
[2020-11-25] MEDS ORDERED: GLUCOSE 40% GEL 15 GM TUBE PO PRN (23:26)
[2020-11-25] MEDS ORDERED: GLUCOSE 10 TABS/TUBE PO PRN (23:26)
[2020-11-25] MEDS ORDERED: chlordiazePOXIDE ALCOHOL WITHDRAWL 25MG PO STA (23:26)
[2020-11-25] MEDS ORDERED: GLUCAGON FOR INJ 1 MG VIAL SQ PRN (23:26)
[2020-11-25] MEDS ORDERED: ONDANSETRON INJ 2 MG/ML 2 ML VIAL IV PRN (23:26)
[2020-11-25] MEDS ORDERED: DEXTROSE 50% 50 ML SYRINGE IV PRN (23:26)
[2020-11-26] MEDS ORDERED: PIPERACILL/TAZOBAC CONSULT ACTIVE PRN (00:07)
[2020-11-26] MEDS: IPRATROPIUM BROMIDE NEB SOLN 0.02% 2.5 ML VIAL INH SCH ×4 (01:00→19:29)
[2020-11-26] MEDS ORDERED: XOPENEX/ATROVENT 1.25mg/0.5MG NEB COMBO NEB SCH (01:00)
[2020-11-26] MEDS: LEVALBUTEROL 1.25MG/0.5ML NEB INH SCH ×4 (01:00→19:29)
[2020-11-26] MEDS: INSULIN GLARGINE SOLOSTAR 100 UNITS/ML 3 ML PEN SC SCH ×3 (01:14→20:35)
[2020-11-26] MEDS: INSULIN ASPART 100 UNITS/ML 3 ML PEN SC SCH ×5 (01:14→20:34)
[2020-11-26] MEDS: NORTRIPTYLINE HCL 25 MG CAP PO SCH ×2 (01:15→20:29)
[2020-11-26] MEDS: METOPROLOL TARTRATE 25 MG TAB PO SCH ×3 (01:15→20:30)
[2020-11-26] MEDS: APIXABAN 5 MG TABLET PO SCH ×3 (01:15→20:29)
[2020-11-26] MEDS: chlordiazePOXIDE HCl 25 MG CAP PO SCH ×4 (01:17→17:41)
[2020-11-26] MEDS: PIPERACILLIN/TAZOBACTAM 3.375 GM in DEXTROSE 5% 100 ML IV SCH ×3 (04:08→20:29)
--- NOTE | 2020-11-26 06:43 | Ultrasound Report ---
BILATERAL LOWER EXTREMITY VENOUS DOPPLER CLINICAL HISTORY: Lower extremity edema. COMPARISON STUDY: No previous studies for comparison. TECHNIQUE: Sonography of the deep venous system of the bilateral lower extremities was performed. Co mpression and augmentation were evaluated. FINDINGS: The bilateral common femoral, superficial femoral and popliteal veins were compressible. A ugmentation was normal. Flow was shown within the deep calf vessels. IMPRESSION: No evidence of deep venous thrombus within the bilateral lower extremities. ACT 112: Negative or not required by law. Electronically signed by: Ameya Henriquez M.D. 11/26/2020 6:42 AM
[2020-11-26] MEDS: ATORVASTATIN 40 MG TAB PO SCH (08:25)
[2020-11-26] MEDS: FOLIC ACID 1 MG TAB PO SCH (08:26)
[2020-11-26] MEDS: FLUTICASONE/VILANTEROL 200/25MCG 14 PUFFS/INHALER INH SCH (08:32)
[2020-11-26 08:33] LABS: Hemoglobin 13.6 g/dL (14.0-18.0); Mean Corpuscular Hemoglobin 31.1 pg (25-34); Mean Corpuscular Hgb Conc 34.9 g/dL (32-36); Mean Corpuscular Volume 89.2 fL (80-100); Platelet Count 195 K/uL (130-400); RDW Coefficient of Variation 13.9 % (11.5-14.5); RDW Standard Deviation 45.2 fL (36.4-46.3); Red Blood Count 4.37 M/uL (4.7-6.1)
[2020-11-26 09:09] LABS: BUN Creatinine Ratio 12.2 (10-20); Calcium 8.6 mg/dl (8.5-10.1); Creatinine Clr Calc Pharmacy 69.7 ml/min; Est GFR (African American) 77.3 ml/min; Est GFR (Non-African American) 66.7 ml/min; Magnesium 2.6 mg/dl (1.8-2.4); Potassium 3.5 mmol/L (3.5-5.1)
[2020-11-26] MEDS ORDERED: POTASSIUM CHLORIDE CRTAB 20 MEQ TABCR PO ONE (09:19)
[2020-11-26 09:21] LABS: Estimated Average Glucose 192 mg/dl; Hemoglobin A1C 8.3 % (4.5-5.6)
[2020-11-26] MEDS: THIAMINE HCL 100 MG TAB PO SCH (09:23)
[2020-11-26] MEDS: lisinopril 5 MG TAB PO SCH (09:23)
[2020-11-26] MEDS: MULTIVITAMIN TAB PO SCH (09:24)
--- NOTE | 2020-11-26 12:40 | Electrocardiogram Report ---
Test Reason : Blood Pressure : / mmHG Vent. Rate : 093 BPM Atrial Rate : 100 BPM P-R Int : 000 ms QRS Dur : 106 ms QT Int : 370 ms P-R-T Axes : 000 -42 244 degrees QTc Int : 460 ms Atrial fibrillation Left axis deviation Diffuse Nonspecific T wave abnormality Abnormal ECG When compared with ECG of 03-JUN-2020 15:02, No significant change Confirmed by Khoi Ribera ([id number]) on 11/26/2020 12:39:27 PM Referred By: REFERRED SELF Confirmed By:Khoi Ribera
--- NOTE | 2020-11-26 13:53 | Cardiology Consultation ---
Date of Consultation November 26, 2020 Assessment & Plan (1) Fluid overload: (2) SOB (shortness of breath): (3) Abdominal distention: (4) Hyponatremia: (5) Leg edema: (6) HTN (hypertension): (7) Alcohol abuse: (8) CAD (coronary artery disease): (9) COPD (chronic obstructive pulmonary disease): (10) PSVT (paroxysmal supraventricular tachycardia): (11) NICM (nonischemic cardiomyopathy): I agree that the patient appears to be volume overload with likely multifactorial causes including acute decompensated LV systolic function, medication noncompliance and alcohol abuse. I agree with IV diuresis and will increase his Lasix to 40 mg IV twice daily. He will also be continued on his outpatient medical regimen including atorvastatin, Eliquis metoprolol and lisinopril. No significant change in LV systolic function on repeat echocardiogram today. Continue to follow and replete electrolytes as necessary. Given the lack of objective ischemic findings I do not believe further ischemic work-up is necessary at this time but will continue to follow clinically History of Present Illness Reason for Consultation: Volume overload Requesting Physician: Kenyatta hospitalist Attending Physician: Vikash Sinha MD History of Present Illness Mr. Michelle shepard is a 70-year-old gentleman who presented to [facility] on 11/25/2020 with complaints of abdominal bloating and shortness of breath. He states has been having increasing abdominal distention for the past 3 weeks. He states it has gotten to the point where it has become uncomfortable and has been having vomiting and diarrhea for the last several days as well. During this time. Is also noticed increased lower extremity edema and orthopnea x1 month. Also with continued shortness of breath worsening with dyspnea over the last month as well. The patient has followed inconsistently with Dr. Bone in the past. Allergies Allergy/AdvReac Type Severity Reaction Status Date / Time No Known Allergies Allergy Verified 11/25/20 17:25 Home Medications Medication Instructions Recorded Confirmed Type albuterol 90 - 180 mcg INHALATION Q4 PRN 11/25/20 11/25/20 History apixaban [Eliquis] 5 mg PO BID 11/25/20 11/25/20 History atorvastatin 40 mg PO DAILY 11/25/20 11/25/20 History budesonide-formoterol [Symbicort] 2 puff INHALATION BID 11/25/20 11/25/20 History lisinopril 5 mg PO DAILY 11/25/20 11/25/20 History metformin 500 mg PO BID 11/25/20 11/25/20 History metoprolol tartrate 25 mg PO BID 11/25/20 11/25/20 History nortriptyline [Pamelor] 25 mg PO HS 11/25/20 11/25/20 History polyethylene glycol 3350 [Miralax] 17 g PO DAILY PRN 11/25/20 11/25/20 History semaglutide [Ozempic] 0.5 mg SUBCUT WK 11/25/20 11/25/20 History Patient History Medical History Alcohol abuse Anxiety Atrial fibrillation CKD (chronic kidney disease), stage III COPD (chronic obstructive pulmonary disease) DM2 (diabetes mellitus, type 2) Fracture dislocation of right ankle GERD (gastroesophageal reflux disease) HLD (hyperlipidemia) HTN (hypertension) Left ventricular dysfunction Surgical History History of ankle surgery History of cardiac cath 2009-nonocclussive CAD Family History Brother Cancer pancreatic cancer Mother Diabetes Sister Diabetes Father Heart disease Social History Smoking Status: Former smoker Tobacco Type: Cigarettes Hx Alcohol Use: Yes Alcohol type: beer Hx Substance Use: No Preferred Language: Tajik Communication Ability: Effective Beliefs That Will Affect Care: None marital status: Unknown Current Living Situation: Alone How many Children do You have: 2 Feels Safe at Home: Yes Safety Concerns: Feels Safe At This Time Review of Systems Review of Systems: All systems reviewed & are unremarkable except as noted in HPI & below Physical Exam Physical Exam: General: Awake, alert and oriented x 3. No acute distress. HEENT: Normocephalic, atraumatic. Pupils equal, round and reactive to light and accommodation. Extraocular muscles are intact. Anicteric sclera. Moist mucous membranes. Neck: No JVD. No bruit. Cardiovascular: Regular. Positive S-4. Normal S-1 and S-2. No S-3. No murmurs or rubs. Pulmonary: Clear to auscultation B/L. No rales, rhonchi or wheezing Abdomen: Bowel sounds x 4, soft. No rebound, guarding or tenderness. No organomegaly. Extremities: No clubbing, cyanosis or edema. +2 pedal pulses bilaterally. Skin: Warm and dry. Results & Data ([facility]) Vital Signs (Past 12 Hours) Vital Signs Temp Pulse Pulse Pulse Resp BP Pulse Ox 11/26/20 13:15 90 18 91 11/26/20 11:25 36.5 C 86 18 134/82 93 11/26/20 09:58 62 11/26/20 07:44 84 18 95 11/26/20 07:43 36.5 C 79 16 128/89 96 11/26/20 03:06 36.5 C 75 17 128/83 97
--- NOTE | 2020-11-26 16:29 | Hospitalist Progress Note ---
Date of Service November 26, 2020 Assessment & Plan (1) Fluid overload: (2) Leg edema: Patient is a 70 yr male with H/O DM II, CKD III, COPD, HLD, atrial fibrillation on Eliquis, left ventricular dysfunction with EF 35-39% in 07/2020, anxiety, GERD presented to ER with complaint of abdominal distention, shortness of breath, leg edema, nausea, vomiting and diarrhea sin ce 3 weeks duration. (3) SOB (shortness of breath): Acute on chronic Systolic and diastolic CHF Imaging suggestive of small B/L pleural effusion, trace ascites, equivocal gallbladder wall thickening likely due to volume overload ECHO: Mild concentric LVH, EF 35 to 39%, grade 1 diastolic dysfunction, mild MR, mild TR, mild right atrial enlargement [id number] Venous Doppler:No evidence of deep venous thrombus within the bilateral lower extremities. Continue IV Lasix Daily weight, I/Os, fluid restriction Monitor renal function/electrolytes Appreciate Cardiology Input Saturating well on room air Also started on Aldactone Suspected Pneumonitis CXR:Subtle right basilar airspace opacities possibly representing a pneumonitis. Clinical and radiographic follow-up are recommended Normal Procalcitonin Blood CX:Negative to date Empirically started on Zosyn Will repeat CXR tmw Consider to titrate down Antibiotics tomorrow (4) Abdominal distention: (5) Vomiting: Nausea, vomiting, diarrhea, abdominal distention ? Enteritis -CT abdomen: Moderate right and small left pleural effusions with trace abdominopelvic ascites. No bowel obstruction or bowel wall thickening. Noninflamed appendix. Scattered small bowel air-fluid levels within the abdomen and pelvis are likely physiologic. Considering reported clinical history of nausea, a mild enteritis could appear similarly. Prostamegaly with urinary bladder wall thickening suggestive of chronic bladder outlet obstruction. Correlate with urinalysis. Equivocal wall thickening of the gallbladder, likely secondary to volume overload. -Check stool studies if diarrhea reoccurs -Continue zosyn for now (6) Hyponatremia: Chronic hyponatremia Likely secondary to alcohol use Monitor sodium levels (7) Atrial fibrillation: Chronic atrial fibrillation Continue Eliquis for anticoagulation Continue metoprolol tartrate (8) DM2 (diabetes mellitus, type 2): Hb A1c: 9.3 on 07/2020 Hold metformin, Ozempic Insulin therapy while hospitalized (9) CKD (chronic kidney disease), stage III: Cr at baseline Monitor renal functions Avoid nephrotoxic agents when possible (10) HTN (hypertension): Continue lisinopril, metoprolol (11) Alcohol abuse: ETOH level: 5.6 Alcohol withdrawal protocol Continue 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, thiamine, folic acid daily 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 to 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 Monitor for withdrawal DVT Px On Eliquis Code Status Full Code Disposition Follows with Dr De for routine care Admission and Anticipated Discharge Date Admission Date: November 25, 2020 Subjective Patient is seen and examined in person Nausea, vomiting Abdominal pain much improved Still has persistent leg edema Reports having minimal nonexpectorant cough Denies dyspnea, chest pain today Offers no other complaints Review of Systems Review of Systems: All systems reviewed & are unremarkable except as noted in HPI & below Physical Exam Physical Exam: Physical Exam: Vitals signs as noted above General Appearance:Moderately built and nourished, no apparent distress Head: normocephalic, Atraumatic Eyes: normal inspection, EOMI Neck: supple, Trachea midline Respiratory/Chest: Normal breath sounds, CTA Cardiovascular: Irregularly irregular, No murmur Abdomen/GI:Soft, Non tender, Bowel sounds present Extremities/Musculoskeletal:normal inspection, 1-2+ B/L LE edema Neurologic/Psych:AAOX3, grossly no focal neurological deficits Skin: normal color, warm Results & Data Results & Data ([facility]) Vital Signs (Past 12 Hours) Vital Signs Temp Pulse Pulse Pulse Resp BP Pulse Ox 11/26/20 15:38 36.7 C 96 H 16 128/77 94 11/26/20 13:15 90 18 91 11/26/20 11:25 36.5 C 86 18 134/82 93 11/26/20 09:58 62 11/26/20 07:44 84 18 95 11/26/20 07:43 36.5 C 79 16 128/89 96 Laboratory Results Short CBC 11/26/20 Range/Units 08:15 WBC 6.80 (4.8-10.8) K/uL Hgb 13.6 L (14.0-18.0) g/dL Hct 39.0 L (42-52) % Plt Count 195 (130-400) K/uL BMP 11/26/20 08:15 Sodium 134 L D Potassium 3.5 Chloride 98 Carbon Dioxide 30 BUN 14 Creatinine 1.12 Glucose 187 H Calcium 8.6 Urine 11/25/20 Range/Units 20:10 Urine Color Yellow Urine Appearance Clear (Clear) Urine pH 6.0 (4.5-7.5) Ur Specific [place] 1.011 (1.000-1.030) Urine Protein Trace H (Negative) Urine Glucose (UA) 3+ H (Negative)
[2020-11-26] MEDS ORDERED: FUROSEMIDE 40 MG in SYRINGE 0 ML IV SCH (16:45)
[2020-11-26] MEDS: FUROSEMIDE 40 MG in SYRINGE 0 ML IV SCH (17:24)
[2020-11-27] MEDS: chlordiazePOXIDE HCl 25 MG CAP PO SCH ×3 (00:36→17:33)
[2020-11-27] MEDS: LEVALBUTEROL 1.25MG/0.5ML NEB INH SCH ×4 (00:45→19:11)
[2020-11-27] MEDS: IPRATROPIUM BROMIDE NEB SOLN 0.02% 2.5 ML VIAL INH SCH ×4 (00:45→19:11)
[2020-11-27] MEDS: PIPERACILLIN/TAZOBACTAM 3.375 GM in DEXTROSE 5% 100 ML IV SCH (04:15)
[2020-11-27] MEDS ORDERED: POTASSIUM CHLORIDE 10 MEQ TABCR PO STA (05:55)
[2020-11-27] MEDS: METOPROLOL TARTRATE 25 MG TAB PO SCH ×2 (06:09→20:36)
[2020-11-27] MEDS ORDERED: POTASSIUM CHLORIDE CRTAB 20 MEQ TABCR PO ONE ×2 (06:16→09:00)
[2020-11-27 07:18] LABS: Hematocrit (blood only) 40.1 % (42-52); Hemoglobin 13.4 g/dL (14.0-18.0); Mean Corpuscular Hemoglobin 31.1 pg (25-34); Mean Corpuscular Hgb Conc 33.4 g/dL (32-36); Platelet Count 191 K/uL (130-400); RDW Coefficient of Variation 14.1 % (11.5-14.5); RDW Standard Deviation 48.2 fL (36.4-46.3); Red Blood Count 4.31 M/uL (4.7-6.1); White Blood Count 6.58 K/uL (4.8-10.8)
--- NOTE | 2020-11-27 07:42 | XRay Report ---
XR chest 1V portable CLINICAL HISTORY: Possible Pneumonia COMPARISON STUDY: Chest radiograph November 25, 2020. FINDINGS: Lung volumes are normal. No pneumothorax or pleural effusion is noted. Right basilar opacit y is present. There is also left basilar retrocardiac opacity. Cardiomegaly is noted without evidence for pulmonary edema. IMPRESSION: Bibasilar opacities which favor an infectious process. Radiographic follow up to ensure resolution is recommended. ACT 112: Negative or not required by law. Electronically signed by: Ameya Henriquez M.D. 11/27/2020 7:40 AM
[2020-11-27 07:50] LABS: BUN Creatinine Ratio 13.1 (10-20); Calcium 8.8 mg/dl (8.5-10.1); Creatinine Clr Calc Pharmacy 57.4 ml/min; Est GFR (African American) 65.1 ml/min; Est GFR (Non-African American) 56.2 ml/min; Magnesium 2.7 mg/dl (1.8-2.4)
[2020-11-27] MEDS: INSULIN ASPART 100 UNITS/ML 3 ML PEN SC SCH ×4 (08:19→20:39)
[2020-11-27] MEDS: SPIRONOLACTONE 12.5 MG TAB PO SCH (08:23)
[2020-11-27] MEDS: FUROSEMIDE 40 MG in SYRINGE 0 ML IV SCH (08:23)
[2020-11-27] MEDS: THIAMINE HCL 100 MG TAB PO SCH (08:23)
[2020-11-27] MEDS: MULTIVITAMIN TAB PO SCH (08:23)
[2020-11-27] MEDS: lisinopril 5 MG TAB PO SCH (08:23)
[2020-11-27] MEDS: APIXABAN 5 MG TABLET PO SCH ×2 (08:23→20:37)
[2020-11-27] MEDS: FOLIC ACID 1 MG TAB PO SCH (08:24)
[2020-11-27] MEDS: ATORVASTATIN 40 MG TAB PO SCH (08:24)
[2020-11-27] MEDS: INSULIN GLARGINE SOLOSTAR 100 UNITS/ML 3 ML PEN SC SCH ×2 (08:24→20:40)
[2020-11-27] MEDS: FLUTICASONE/VILANTEROL 200/25MCG 14 PUFFS/INHALER INH SCH (08:26)
[2020-11-27] MEDS: POTASSIUM CHLORIDE CRTAB 20 MEQ TABCR PO SCH (08:31)
[2020-11-27] MEDS: levoFLOXacin 750 MG TAB PO SCH (12:18)
--- NOTE | 2020-11-27 13:47 | Cardiology Progress Note ---
Date of Service November 27, 2020 Assessment & Plan (1) Fluid overload: (2) SOB (shortness of breath): (3) Abdominal distention: (4) Hyponatremia: (5) Leg edema: (6) HTN (hypertension): (7) Alcohol abuse: (8) CAD (coronary artery disease): (9) COPD (chronic obstructive pulmonary disease): (10) PSVT (paroxysmal supraventricular tachycardia): (11) NICM (nonischemic cardiomyopathy): The patient is becoming euvolemic. I am going to switch him to oral Lasix. I have also increased his lisinopril as his blood pressure will tolerate an increased dose. Otherwise the patient is doing well. Admission and Anticipated Discharge Date Admission Date: November 25, 2020 Subjective Patient feels improved. He is less short of breath and overall feels better. Review of Systems Review of Systems: All systems reviewed & are unremarkable except as noted in Subjective Physical Exam Physical Exam: General: no acute distress and stated age Head: normocephalic, no masses, lesions, tenderness or abnormalities Eyes: conjunctiva are pink and non-injected, sclera clear Neck: supple, no adenopathy, no bruits, normal jugular venous pulse, no hepatojugular reflux Chest: normal shape and normal respiratory effort Lungs: clear to auscultation and percussion Cardiac Exam: - regular rate & rhythm, no murmurs gallops or rubs - normal S1, normal S2 Pulses: 2(+) throughout Abdomen: abdomen soft, non-tender, no abnormal masses and no hepatosplenomegaly Musculoskeletal: no gait disturbance, no joint inflammation, no deforming arthritis Extremities: no edema and no cyanosis Neuro: grossly normal exam Results & Data ([facility]) Vital Signs (Past 12 Hours) Vital Signs Temp Pulse Pulse Pulse Pulse Resp BP 11/27/20 11:43 36.6 C 92 H 19 136/91 11/27/20 08:22 92 H 135/97 11/27/20 07:31 92 H 20 11/27/20 07:30 96 H 11/27/20 06:08 92 H 151/91 H 11/27/20 03:19 36.8 C 87 17 128/80 Pulse Ox 11/27/20 11:43 93 11/27/20 08:22 11/27/20 07:31 93 11/27/20 07:30 11/27/20 06:08 11/27/20 03:19 95 Laboratory Results Laboratory Results - last 24 hr 11/26/20 11/26/20 11/27/20 16:45 20:24 07:02 WBC 6.58 RBC 4.31 L Hgb 13.4 L Hct 40.1 L MCV 93.0 MCH 31.1 MCHC 33.4 RDW Std Deviation 48.2 H RDW Coeff of Cole 14.1 Plt Count 191 MPV 11.0 H Sodium Potassium Chloride Carbon Dioxide Anion Gap BUN Creatinine Est Cr Clr Drug Dosing Est GFR ( Amer) Est GFR (Non-Af Amer) BUN/Creatinine Ratio Glucose POC Glucose 190 H 147 H Calcium Magnesium Procalcitonin 11/27/20 11/27/20 11/27/20 07:02 07:02 07:36 WBC RBC Hgb Hct MCV MCH MCHC RDW Std Deviation RDW Coeff of Cole Plt Count MPV Sodium 135 L Potassium 4.0 Chloride 100 Carbon Dioxide 29 Anion Gap 6.0 BUN 17 Creatinine 1.29 Est Cr Clr Drug Dosing 57.4 Est GFR ( Amer) 65.1 Est GFR (Non-Af Amer) 56.2 BUN/Creatinine Ratio 13.1 Glucose 148 H POC Glucose 189 H Calcium 8.8 Magnesium 2.7 H Procalcitonin < 0.05 11/27/20 11:32 WBC RBC Hgb Hct MCV MCH MCHC RDW Std Deviation RDW Coeff of Cole Plt Count MPV Sodium Potassium Chloride Carbon Dioxide Anion Gap BUN Creatinine Est Cr Clr Drug Dosing Est GFR ( Amer) Est GFR (Non-Af Amer) BUN/Creatinine Ratio Glucose POC Glucose 236 H Calcium Magnesium Procalcitonin Medications Administered Current Inpatient Medications Acetaminophen (Acetaminophen 325 Mg Tab) 650 mg PO Q4H PRN PRN Reason: Pain or Fever Stop: 12/25/20 23:25 Apixaban (Apixaban 5 Mg Tablet) 5 mg PO BID [facility] Stop: 12/25/20 23:25 Last Admin: 11/27/20 08:23 Dose: 5 mg Documented by: Atorvastatin Calcium (Atorvastatin 40 Mg Tab) 40 mg PO DAILY [facility] Stop: 12/26/20 08:59 Last Admin: 11/27/20 08:24 Dose: 40 mg Documented by: Chlordiazepoxide HCl (Chlordiazepoxide Hcl 25 Mg Cap) 25 mg PO Q8H [facility]; Taper Stop: 11/27/20 23:59 Last Admin: 11/27/20 08:23 Dose: 25 mg Documented by: Chlordiazepoxide HCl (Chlordiazepoxide Hcl 10 Mg Cap) 10 mg PO Q8H [facility] Stop: 11/29/20 00:01 Chlordiazepoxide HCl (Chlordiazepoxide Hcl 5 Mg Cap) 5 mg PO Q12H [facility] Stop: 11/30/20 00:01 Dextrose (Dextrose 50% 50 Ml Syringe) 25 - 50 ml IV UD PRN; Protocol PRN Reason: Hypoglycemia Protocol Stop: 12/25/20 23:25 Fluticasone/Vilanterol (Fluticasone/Vilanterol 200/25mcg 14 Puffs/Inhaler) 1 puffs INH DAILY [facility] Stop: 12/26/20 08:59 Last Admin: 11/27/20 08:26 Dose: 1 puffs Documented by: Folic Acid (Folic Acid 1 Mg Tab) 1 mg PO QAM [facility] Stop: 12/26/20 08:59 Last Admin: 11/27/20 08:24 Dose: 1 mg Documented by: Furosemide (Furosemide 40 Mg Tab) 40 mg PO BID17 [facility] Stop: 12/27/20 16:59 Glucagon (Glucagon For Inj 1 Mg Vial) 1 mg SQ UD PRN; Protocol PRN Reason: Hypoglycemia Protocol Stop: 12/25/20 23:25 Glucose (Glucose 10 Tabs/Tube) 4 - 8 tabs PO UD PRN; Protocol PRN Reason: Hypoglycemia Protocol Stop: 12/25/20 23:25 Glucose (Glucose 40% Gel 15 Gm Tube) 15 - 30 gm PO UD PRN; Protocol PRN Reason: Hypoglycemia Protocol Stop: 12/25/20 23:25 Lorazepam (Ativan) 1 mg in 2 mls @ 2 mls/min IV ONE PRN; Protocol PRN Reason: EtoH Withdrawal AWSS 6-10 Stop: 12/25/20 23:25 Insulin Aspart (Insulin Aspart 100 Units/Ml 3 Ml Pen) 0 units SC ACHS [facility] Stop: 12/25/20 23:25 Last Admin: 11/27/20 12:18 Dose: 9 units Documented by: Insulin Glargine (Insulin Glargine Solostar 100 Units/Ml 3 Ml Pen) 0 units SC BID [facility] Stop: 12/25/20 23:25 Last Admin: 11/27/20 08:24 Dose: 10 units Documented by: Ipratropium [place] (Ipratropium [place] Neb Soln 0.02% 2.5 Ml Vial) 0.5 mg INH Q6R [facility] Stop: 12/26/20 00:59 Last Admin: 11/27/20 13:27 Dose: Not Given Documented by: Levalbuterol HCl (Levalbuterol 1.25mg/0.5ml Neb) 1.25 mg INH Q6R [facility] Stop: 12/26/20 00:59 Last Admin: 11/27/20 13:27 Dose: Not Given Documented by: Levofloxacin (Levofloxacin 750 Mg Tab) 750 mg PO DAILY@1100 [facility]; Protocol Stop: 12/04/20 10:59 Last Admin: 11/27/20 12:18 Dose: 750 mg Documented by: Lisinopril (Lisinopril 10 Mg Tab) 10 mg PO DAILY [facility] Stop: 12/28/20 08:59 Metoprolol Tartrate (Metoprolol Tartrate 25 Mg Tab) 25 mg PO BID [facility] Stop: 12/27/20 06:14 Last Admin: 11/27/20 06:09 Dose: 25 mg Documented by: Miscellaneous (Carbohydrates For Hypoglycemia ) 15 - 30 gm PO UD PRN PRN Reason: Hypoglycemia Protocol Stop: 12/25/20 23:25 Multivitamins (Multivitamin Tab) 1 tab PO [facility] Stop: 12/26/20 08:59 Last Admin: 11/27/20 08:23 Dose: 1 tab Documented by: Nortriptyline HCl (Nortriptyline Hcl 25 Mg Cap) 25 mg PO HS [facility] Stop: 12/25/20 23:25 Last Admin: 11/26/20 20:29 Dose: 25 mg Documented by: Potassium Chloride (Potassium Chloride Crtab 20 Meq Tabcr) 20 meq PO DAILY [facility] Stop: 12/27/20 08:59 Last Admin: 11/27/20 08:31 Dose: 20 meq Documented by: Spironolactone (Spironolactone 12.5 Mg Tab) 12.5 mg PO DAILY [facility] Stop: 12/27/20 08:59 Last Admin: 11/27/20 08:23 Dose: 12.5 mg Documented by: Thiamine HCl (Thiamine Hcl 100 Mg Tab) 100 mg PO QAM [facility] Stop: 12/26/20 08:59 Last Admin: 11/27/20 08:23 Dose: 100 mg Documented by:
[2020-11-27] MEDS: FUROSEMIDE 40 MG TAB PO SCH (17:30)
--- NOTE | 2020-11-27 17:55 | Hospitalist Progress Note ---
Date of Service November 27, 2020 Assessment & Plan (1) Fluid overload: (2) Leg edema: Patient is a 70 yr male with H/O DM II, CKD III, COPD, HLD, atrial fibrillation on Eliquis, left ventricular dysfunction with EF 35-39% in 07/2020, anxiety, GERD presented to ER with complaint of abdominal distention, shortness of breath, leg edema, nausea, vomiting and diarrhea sin ce 3 weeks duration. (3) SOB (shortness of breath): Acute on chronic Systolic and diastolic CHF Imaging suggestive of small B/L pleural effusion, trace ascites, equivocal gallbladder wall thickening likely due to volume overload ECHO: Mild concentric LVH, EF 35 to 39%, grade 1 diastolic dysfunction, mild MR, mild TR, mild right atrial enlargement [id number] Venous Doppler:No evidence of deep venous thrombus within the bilateral lower extremities. Monitor Daily weight, I/Os Monitor renal function/electrolytes Appreciate Cardiology Input Saturating well on room air Also started on Aldactone IV lasix transition to p.o. Lisinopril dose increased to 10mg daily Suspected Pneumonitis CXR:Subtle right basilar airspace opacities possibly representing a pneumonitis. Clinical and radiographic follow-up are recommended Normal Procalcitonin Blood CX:Negative to date Zosyn transition to Levaquin (4) Abdominal distention: (5) Vomiting: Nausea, vomiting, diarrhea, abdominal distention ? Enteritis -CT abdomen: Moderate right and small left pleural effusions with trace abdominopelvic ascites. No bowel obstruction or bowel wall thickening. Noninflamed appendix. Scattered small bowel air-fluid levels within the abdomen and pelvis are likely physiologic. Considering reported clinical history of nausea, a mild enteritis could appear similarly. Prostamegaly with urinary bladder wall thickening suggestive of chronic bladder outlet obstruction. Correlate with urinalysis. Equivocal wall thickening of the gallbladder, likely secondary to volume overload. -stool studies pending -Received zosyn (6) Hyponatremia: Chronic hyponatremia Likely secondary to alcohol use Monitor sodium levels (7) Atrial fibrillation: Chronic atrial fibrillation Continue Eliquis for anticoagulation Continue metoprolol tartrate (8) DM2 (diabetes mellitus, type 2): Hb A1c: 9.3 on 07/2020 Hold metformin, Ozempic Insulin therapy while hospitalized (9) CKD (chronic kidney disease), stage III: Cr at baseline Monitor renal functions Avoid nephrotoxic agents when possible (10) HTN (hypertension): Continue lisinopril, metoprolol (11) Alcohol abuse: ETOH level: 5.6 Alcohol withdrawal protocol Continue 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, thiamine, folic acid daily [employer]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 Monitor for 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 DVT Px On Eliquis Code Status Full Code Disposition Follows with Dr De for routine care Admission and Anticipated Discharge Date Admission Date: November 25, 2020 Subjective Patient is seen and examined in person States doing well today Eager to get discharged Chronic dyspnea improving Denies nausea, vomiting, abdominal pain today Also denies dyspnea, chest pain Review of Systems Review of Systems: All systems reviewed & are unremarkable except as noted in HPI & below Physical Exam Physical Exam: Physical Exam: Vitals signs as noted above General Appearance:Moderately built and nourished, no apparent distress Head: normocephalic, Atraumatic Eyes: normal inspection, EOMI Neck: supple, Trachea midline Respiratory/Chest: Normal breath sounds, CTA Cardiovascular: Irregularly irregular, No murmur Abdomen/GI:Soft, Non tender, Bowel sounds present Extremities/Musculoskeletal:normal inspection, 1-2+ B/L LE edema Neurologic/Psych:AAOX3, grossly no focal neurological deficits Skin: normal color, warm Results & Data Results & Data ([place]) Vital Signs (Past 12 Hours) Vital Signs Temp Pulse Pulse Pulse Pulse Resp BP 11/27/20 15:47 90 11/27/20 14:50 36.3 C L 92 H 18 116/79 11/27/20 11:43 36.6 C 92 H 19 136/91 11/27/20 08:22 92 H 135/97 11/27/20 07:31 92 H 20 11/27/20 07:30 96 H 11/27/20 06:08 92 H 151/91 H Pulse Ox 11/27/20 15:47 11/27/20 14:50 97 11/27/20 11:43 93 11/27/20 08:22 11/27/20 07:31 93 11/27/20 07:30 11/27/20 06:08 Laboratory Results Short CBC 11/27/20 Range/Units 07:02 WBC 6.58 (4.8-10.8) K/uL Hgb 13.4 L (14.0-18.0) g/dL Hct 40.1 L (42-52) % Plt Count 191 (130-400) K/uL BMP 11/27/20 07:02 Sodium 135 L Potassium 4.0 Chloride 100 Carbon Dioxide 29 BUN 17 Creatinine 1.29 Glucose 148 H Calcium 8.8
[2020-11-27] MEDS: NORTRIPTYLINE HCL 25 MG CAP PO SCH (20:36)
[2020-11-27] MEDS ORDERED: POTASSIUM CHLORIDE CRTAB 20 MEQ TABCR PO SCH (21:00)
[2020-11-28] MEDS: IPRATROPIUM BROMIDE NEB SOLN 0.02% 2.5 ML VIAL INH SCH ×2 (01:34→07:50)
[2020-11-28] MEDS: LEVALBUTEROL 1.25MG/0.5ML NEB INH SCH ×2 (01:34→07:50)
[2020-11-28 06:10] LABS: Hematocrit (blood only) 40.5 % (42-52); Hemoglobin 13.8 g/dL (14.0-18.0); Mean Corpuscular Hemoglobin 31.4 pg (25-34); Mean Corpuscular Hgb Conc 34.1 g/dL (32-36); Mean Platelet Volume 11.1 fL (7.4-10.4); Platelet Count 198 K/uL (130-400); RDW Standard Deviation 47.6 fL (36.4-46.3); White Blood Count 6.88 K/uL (4.8-10.8)
[2020-11-28 06:48] LABS: Calcium 8.8 mg/dl (8.5-10.1); Creatinine Clr Calc Pharmacy 50.5 ml/min; Est GFR (African American) 57.5 ml/min; Est GFR (Non-African American) 49.6 ml/min; Magnesium 1.9 mg/dl (1.8-2.4); Potassium 4.1 mmol/L (3.5-5.1)
[2020-11-28] MEDS: METOPROLOL TARTRATE 25 MG TAB PO SCH (07:59)
[2020-11-28] MEDS: FUROSEMIDE 40 MG TAB PO SCH (07:59)
[2020-11-28] MEDS: SPIRONOLACTONE 12.5 MG TAB PO SCH (07:59)
[2020-11-28] MEDS: POTASSIUM CHLORIDE CRTAB 20 MEQ TABCR PO SCH (08:00)
[2020-11-28] MEDS: THIAMINE HCL 100 MG TAB PO SCH (08:00)
[2020-11-28] MEDS: FOLIC ACID 1 MG TAB PO SCH (08:01)
[2020-11-28] MEDS: APIXABAN 5 MG TABLET PO SCH (08:01)
[2020-11-28] MEDS: INSULIN ASPART 100 UNITS/ML 3 ML PEN SC SCH ×2 (08:01→12:03)
[2020-11-28] MEDS: ATORVASTATIN 40 MG TAB PO SCH (08:01)
[2020-11-28] MEDS: MULTIVITAMIN TAB PO SCH (08:01)
[2020-11-28] MEDS: INSULIN GLARGINE SOLOSTAR 100 UNITS/ML 3 ML PEN SC SCH (08:03)
[2020-11-28] MEDS: FLUTICASONE/VILANTEROL 200/25MCG 14 PUFFS/INHALER INH SCH (08:03)
[2020-11-28] MEDS ORDERED: IPRATROPIUM BROMIDE NEB SOLN 0.02% 2.5 ML VIAL INH PRN (08:32)
[2020-11-28] MEDS ORDERED: LEVALBUTEROL 1.25MG/0.5ML NEB INH PRN (08:32)
[2020-11-28] MEDS ORDERED: lisinopril 10 MG TAB PO SCH (09:00)
[2020-11-28] MEDS: levoFLOXacin 750 MG TAB PO SCH (12:02)
--- NOTE | 2020-11-28 12:07 | Cardiology Progress Note ---
Date of Service November 28, 2020 Assessment & Plan (1) Fluid overload: (2) SOB (shortness of breath): (3) Abdominal distention: (4) Hyponatremia: (5) Leg edema: (6) HTN (hypertension): (7) Alcohol abuse: (8) CAD (coronary artery disease): (9) COPD (chronic obstructive pulmonary disease): (10) NICM (nonischemic cardiomyopathy): (11) PAF (paroxysmal atrial fibrillation): The patient is euvolemic and now on appropriate guideline directed medication. I lowered the Lasix to 40 mg daily. I will arrange follow-up with his primary occupational therapy specialist Dr. Nguyen as an outpatient. Admission and Anticipated Discharge Date Admission Date: November 25, 2020 Subjective The patient has no new cardiac complaints today. He is anxious to go home. Review of Systems Review of Systems: All systems reviewed & are unremarkable except as noted in Subjective Physical Exam Physical Exam: General: no acute distress and stated age Head: normocephalic, no masses, lesions, tenderness or abnormalities Eyes: conjunctiva are pink and non-injected, sclera clear Neck: supple, no adenopathy, no bruits, normal jugular venous pulse, no hepatojugular reflux Chest: normal shape and normal respiratory effort Lungs: clear to auscultation and percussion Cardiac Exam: - irregular rate & rhythm, no murmurs gallops or rubs - normal S1, normal S2 Pulses: 2(+) throughout Abdomen: abdomen soft, non-tender, no abnormal masses and no hepatosplenomegaly Musculoskeletal: no gait disturbance, no joint inflammation, no deforming arthritis Extremities: no edema and no cyanosis Neuro: grossly normal exam Results & Data ([facility]) Vital Signs (Past 12 Hours) Vital Signs Temp Pulse Pulse Resp BP Pulse Ox 11/28/20 11:34 36.3 C L 88 16 107/68 90 11/28/20 07:50 105 H 18 92 11/28/20 07:14 36.4 C L 88 16 118/78 93 11/28/20 07:00 96 H 11/28/20 04:14 36.7 C 96 H 16 131/72 97 11/28/20 01:35 95 H 16 96 11/28/20 00:27 89 Laboratory Results Laboratory Results - last 24 hr 11/27/20 11/27/20 11/28/20 16:32 20:02 05:51 WBC 6.88 RBC 4.40 L Hgb 13.8 L Hct 40.5 L MCV 92.0 MCH 31.4 MCHC 34.1 RDW Std Deviation 47.6 H RDW Coeff of Cole 14.0 Plt Count 198 MPV 11.1 H Sodium Potassium Chloride Carbon Dioxide Anion Gap BUN Creatinine Est Cr Clr Drug Dosing Est GFR ( Amer) Est GFR (Non-Af Amer) BUN/Creatinine Ratio Glucose POC Glucose 106 H 148 H Calcium Magnesium 11/28/20 11/28/20 11/28/20 05:51 07:27 11:35 WBC RBC Hgb Hct MCV MCH MCHC RDW Std Deviation RDW Coeff of Cole Plt Count MPV Sodium 136 Potassium 4.1 Chloride 99 Carbon Dioxide 31 Anion Gap 6.0 BUN 20 H Creatinine 1.43 H Pending Est Cr Clr Drug Dosing 50.5 Pending Est GFR ( Amer) 57.5 Pending Est GFR (Non-Af Amer) 49.6 Pending BUN/Creatinine Ratio 14.0 Glucose 145 H POC Glucose 151 H Calcium 8.8 Magnesium 1.9 11/28/20 11:53 WBC RBC Hgb Hct MCV MCH MCHC RDW Std Deviation RDW Coeff of Cole Plt Count MPV Sodium Potassium Chloride Carbon Dioxide Anion Gap BUN Creatinine Est Cr Clr Drug Dosing Est GFR ( Amer) Est GFR (Non-Af Amer) BUN/Creatinine Ratio Glucose POC Glucose 232 H Calcium Magnesium Medications Administered Current Inpatient Medications Acetaminophen (Acetaminophen 325 Mg Tab) 650 mg PO Q4H PRN PRN Reason: Pain or Fever Stop: 12/25/20 23:25 Apixaban (Apixaban 5 Mg Tablet) 5 mg PO BID [facility] Stop: 12/25/20 23:25 Last Admin: 11/28/20 08:01 Dose: 5 mg Documented by: Atorvastatin Calcium (Atorvastatin 40 Mg Tab) 40 mg PO DAILY [facility] Stop: 12/26/20 08:59 Last Admin: 11/28/20 08:01 Dose: 40 mg Documented by: Chlordiazepoxide HCl (Chlordiazepoxide Hcl 10 Mg Cap) 10 mg PO Q8H [facility] Stop: 11/29/20 00:01 Last Admin: 11/28/20 08:00 Dose: 10 mg Documented by: Chlordiazepoxide HCl (Chlordiazepoxide Hcl 5 Mg Cap) 5 mg PO Q12H [facility] Stop: 11/30/20 00:01 Dextrose (Dextrose 50% 50 Ml Syringe) 25 - 50 ml IV UD PRN; Protocol PRN Reason: Hypoglycemia Protocol Stop: 12/25/20 23:25 Fluticasone/Vilanterol (Fluticasone/Vilanterol 200/25mcg 14 Puffs/Inhaler) 1 puffs INH DAILY [facility] Stop: 12/26/20 08:59 Last Admin: 11/28/20 08:03 Dose: 1 puffs Documented by: Folic Acid (Folic Acid 1 Mg Tab) 1 mg PO QAM [facility] Stop: 12/26/20 08:59 Last Admin: 11/28/20 08:01 Dose: 1 mg Documented by: Furosemide (Furosemide 40 Mg Tab) 40 mg PO DAILY [facility] Stop: 12/29/20 08:59 Glucagon (Glucagon For Inj 1 Mg Vial) 1 mg SQ UD PRN; Protocol PRN Reason: Hypoglycemia Protocol Stop: 12/25/20 23:25 Glucose (Glucose 10 Tabs/Tube) 4 - 8 tabs PO UD PRN; Protocol PRN Reason: Hypoglycemia Protocol Stop: 12/25/20 23:25 Glucose (Glucose 40% Gel 15 Gm Tube) 15 - 30 gm PO UD PRN; Protocol PRN Reason: Hypoglycemia Protocol Stop: 12/25/20 23:25 Lorazepam (Ativan) 1 mg in 2 mls @ 2 mls/min IV ONE PRN; Protocol PRN Reason: EtoH Withdrawal AWSS 6-10 Stop: 12/25/20 23:25 Insulin Aspart (Insulin Aspart 100 Units/Ml 3 Ml Pen) 0 units SC ACHS [facility] Stop: 12/25/20 23:25 Last Admin: 11/28/20 12:03 Dose: 6 units Documented by: Insulin Glargine (Insulin Glargine Solostar 100 Units/Ml 3 Ml Pen) 0 units SC BID [facility] Stop: 12/25/20 23:25 Last Admin: 11/28/20 08:03 Dose: 5 units Documented by: Ipratropium [place] (Ipratropium [place] Neb Soln 0.02% 2.5 Ml Vial) 0.5 mg INH Q6R PRN PRN Reason: Shortness Of Breath Or Wheezing Stop: 12/26/20 00:59 Levalbuterol HCl (Levalbuterol 1.25mg/0.5ml Neb) 1.25 mg INH Q6R PRN PRN Reason: Shortness Of Breath Or Wheezing Stop: 12/26/20 00:59 Levofloxacin (Levofloxacin 750 Mg Tab) 750 mg PO DAILY@1100 [facility]; Protocol Stop: 12/04/20 10:59 Last Admin: 11/28/20 12:02 Dose: 750 mg Documented by: Lisinopril (Lisinopril 10 Mg Tab) 10 mg PO DAILY [facility] Stop: 12/28/20 08:59 Last Admin: 11/28/20 08:00 Dose: 10 mg Documented by: Metoprolol Tartrate (Metoprolol Tartrate 25 Mg Tab) 25 mg PO BID [facility] Stop: 12/27/20 06:14 Last Admin: 11/28/20 07:59 Dose: 25 mg Documented by: Miscellaneous (Carbohydrates For Hypoglycemia ) 15 - 30 gm PO UD PRN PRN Reason: Hypoglycemia Protocol Stop: 12/25/20 23:25 Multivitamins (Multivitamin Tab) 1 tab PO [facility] Stop: 12/26/20 08:59 Last Admin: 11/28/20 08:01 Dose: 1 tab Documented by: Nortriptyline HCl (Nortriptyline Hcl 25 Mg Cap) 25 mg PO HS [facility] Stop: 12/25/20 23:25 Last Admin: 11/27/20 20:36 Dose: 25 mg Documented by: Potassium Chloride (Potassium Chloride Crtab 20 Meq Tabcr) 20 meq PO DAILY [facility] Stop: 12/27/20 08:59 Last Admin: 11/28/20 08:00 Dose: 20 meq Documented by: Spironolactone (Spironolactone 12.5 Mg Tab) 12.5 mg PO DAILY [facility] Stop: 12/27/20 08:59 Last Admin: 11/28/20 07:59 Dose: 12.5 mg Documented by: Thiamine HCl (Thiamine Hcl 100 Mg Tab) 100 mg PO QAM [facility] Stop: 12/26/20 08:59 Last Admin: 11/28/20 08:00 Dose: 100 mg Documented by:
[2020-11-28 12:31] LABS: Creatinine Clr Calc Pharmacy 49.5 ml/min; Est GFR (African American) 56.1 ml/min; Est GFR (Non-African American) 48.4 ml/min
--- NOTE | 2020-11-28 12:39 | Hospitalist Progress Note ---
Date of Service November 28, 2020 Assessment & Plan (1) Fluid overload: (2) Leg edema: Patient is a 70 yr male with H/O DM II, CKD III, COPD, HLD, atrial fibrillation on Eliquis, left ventricular dysfunction with EF 35-39% in 07/2020, anxiety, GERD presented to ER with complaint of abdominal distention, shortness of breath, leg edema, nausea, vomiting and diarrhea sin ce 3 weeks duration. (3) SOB (shortness of breath): Acute on chronic Systolic and diastolic CHF Imaging suggestive of small B/L pleural effusion, trace ascites, equivocal gallbladder wall thickening likely due to volume overload ECHO: Mild concentric LVH, EF 35 to 39%, grade 1 diastolic dysfunction, mild MR, mild TR, mild right atrial enlargement [id number] Venous Doppler:No evidence of deep venous thrombus within the bilateral lower extremities. Monitor Daily weight, I/Os Monitor renal function/electrolytes Appreciate Cardiology Input Saturating well on room air Also started on Aldactone IV lasix transition to p.o. Lisinopril dose increased to 10mg daily Needs follow-up with cardiology upon discharge Suspected Pneumonitis CXR:Subtle right basilar airspace opacities possibly representing a pneumonitis. Clinical and radiographic follow-up are recommended Normal Procalcitonin Blood CX:Negative to date Zosyn transition to Levaquin (4) Abdominal distention: (5) Vomiting: Nausea, vomiting, diarrhea, abdominal distention ? Enteritis -CT abdomen: Moderate right and small left pleural effusions with trace abdominopelvic ascites. No bowel obstruction or bowel wall thickening. Noninflamed appendix. Scattered small bowel air-fluid levels within the abdomen and pelvis are likely physiologic. Considering reported clinical history of nausea, a mild enteritis could appear similarly. Prostamegaly with urinary fernanda dder wall thickening suggestive of chronic bladder outlet obstruction. Correlate with urinalysis. Equivocal wall thickening of the gallbladder, likely secondary to volume overload. -stool studies : Negative -Received zosyn (6) Hyponatremia: Chronic hyponatremia Likely secondary to alcohol use Monitor sodium levels (7) Atrial fibrillation: Chronic atrial fibrillation Continue Eliquis for anticoagulation Continue metoprolol tartrate (8) DM2 (diabetes mellitus, type 2): Hb A1c: 9.3 on 07/2020 Hold metformin, Ozempic Insulin therapy while hospitalized (9) CKD (chronic kidney disease), stage III: Acute Kidney Injury on CKD III Due to diuretics Monitor renal functions Avoid nephrotoxic agents when possible (10) HTN (hypertension): Continue lisinopril, metoprolol (11) Alcohol abuse: ETOH level: 5.6 Alcohol withdrawal protocol Continue 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, 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, 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 Monitor for 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 DVT Px On Eliquis Code Status Full Code Disposition Follows with Dr De for routine care for CHF Admission and Anticipated Discharge Date Admission Date: November 25, 2020 Subjective Patient is seen and examined in person Offers no complaints Eager to get discharged Discussed with cardiology today Denies chest pain, dyspnea, nausea, vomiting, abdominal pain, dizziness Review of Systems Review of Systems: All systems reviewed & are unremarkable except as noted in HPI & below Physical Exam Physical Exam: Physical Exam: Vitals signs as noted above General Appearance:Moderately built and nourished, no apparent distress Head: normocephalic, Atraumatic Eyes: normal inspection, EOMI Neck: supple, Trachea midline Respiratory/Chest: Normal breath sounds, CTA Cardiovascular: Irregularly irregular, No murmur Abdomen/GI:Soft, Non tender, Bowel sounds present Extremities/Musculoskeletal:normal inspection, 1-2+ B/L LE edema Neurologic/Psych:AAOX3, grossly no focal neurological deficits Skin: normal color, warm Results & Data Results & Data ([facility]) Vital Signs (Past 12 Hours) Vital Signs Temp Pulse Pulse Resp BP Pulse Ox 11/28/20 11:34 36.3 C L 88 16 107/68 90 11/28/20 07:50 105 H 18 92 11/28/20 07:14 36.4 C L 88 16 118/78 93 11/28/20 07:00 96 H 11/28/20 04:14 36.7 C 96 H 16 131/72 97 11/28/20 01:35 95 H 16 96 Laboratory Results Short CBC 11/28/20 Range/Units 05:51 WBC 6.88 (4.8-10.8) K/uL Hgb 13.8 L (14.0-18.0) g/dL Hct 40.5 L (42-52) % Plt Count 198 (130-400) K/uL BMP 11/28/20 11/28/20 05:51 11:35 Sodium 136 Potassium 4.1 Chloride 99 Carbon Dioxide 31 BUN 20 H Creatinine 1.43 H 1.46 H Glucose 145 H Calcium 8.8
--- NOTE | 2020-11-28 12:47 | Discharge Summary ---
Date of Service November 28, 2020 Admission HPI Per Admitting Provider Pt is 70 y/o M with PMH DM II, CKD III, COPD, HLD, atrial fibrillation on Eliquis, left ventricular dysfunction with EF 35-39% in 07/2020, anxiety, GERD presented to ER with complaint of abdominal distention, shortness of breath. Patient reports noticing increased abdominal distention for at least the past 3 weeks. Reports "gurgling" sensation to lower abdomen that he reports feels uncomfortable but does denies severe pain. Past 3 days with vomiting and reports had 2 episodes diarrhea. Tried taking Pepto-Bismol and Mylanta without much improvement. Also reports noticing increased bilateral lower extremity edema over the past several weeks, right extremity worse. Reports orthopnea worsening over the past month, but thinks has had it longer. Also complains of cough. Sometimes reports is productive but is unable to further describe. Reports ongoing SOB that has worsened over past month or so. States history of COPD and has wheezing episodes several times a day. He has been using his albuterol inhaler 4 times a day with relief of wheezing, no improvement of orthopnea. Did not have COVID-19 vaccine yet. Denies any ill contacts. Pt states drinks at least 6 beers a day. Last drank this morning. Denies history alcohol withdrawal. Denies fever/chills, diaphoresis, hematemesis, hematochezia, melena, FISHER, dizziness, syncope, vision changes, neck pain, CP, palpitations, hemoptysis, sore throat, choking, otalgia, rhinorrhea, paresthesias, weakness, rashes, urinary symptoms. Admission Exam Per Admitting Provider Physical Exam Physical Exam: General: no distress, overweight Head: normocephalic, atraumatic Eyes: PERRL, EOM's intact, conjunctiva non-injected, anicteric ENT: hard of hearing, normal inspection external ears, nose, mucous membranes moist Neck: supple, trachea midline Lungs: +orthopnea, 94% on RA, +rales bilateral bases, no wheezing/rhonchi CV: irregularly irregular, rate 98, no murmur, +2-3 pretibial edema, right LE worse than left Abd: +distended, normal BS, soft, non-tender to palpation Ext: no cyanosis, no erythema, no calf tenderness Neuro: A&O x 3, no focal deficits noted, normal affect Skin: warm, dry Principal Diagnosis Acute on chronic congestive heart failure Suspected pneumonitis Acute kidney injury Discharge Data Allergies Allergy/AdvReac Type Severity Reaction Status Date / Time No Known Allergies Allergy Verified 11/25/20 17:25 Consultations 11/25/20 17:55 ED Decision to Admit Stat 11/26/20 09:23 Consult Cardiology Routine Procedures Performed ECHO: Mild concentric LVH, EF 35 to 39%, grade 1 diastolic dysfunction, mild MR, mild TR, mild right atrial enlargement Venous Doppler:No evidence of deep venous thrombus within the bilateral lower extremities CXR:Subtle right basilar airspace opacities possibly representing a pneumonitis. Clinical and radiographic follow-up are recommended CT abdomen: Moderate right and small left pleural effusions with trace abdominopelvic ascites. No bowel obstruction or bowel wall thickening. Noninflamed appendix. Scattered small bowel air-fluid levels within the abdomen and pelvis are likely physiologic. Considering reported clinical history of nausea, a mild enteritis could appear similarly. Prostamegaly with urinary bladder wall thickening suggestive of chronic bladder outlet obstruction. Correlate with urinalysis. Equivocal wall thickening of the gallbladder, likely secondary to volume overload. Ordered Studies 11/25/20 14:06 CT abd pelvis IV con only Stat 11/25/20 19:34 US venous doppler LE Urgent Hospital Course (1) Fluid overload: (2) Leg edema: Patient is a 70 yr male with H/O DM II, CKD III, COPD, HLD, atrial fibrillation on Eliquis, left ventricular dysfunction with EF 35-39% in 07/2020, anxiety, GERD presented to ER with complaint of abdominal distention, shortness of breath, leg edema, nausea, vomiting and diarrhea sin ce 3 weeks duration. (3) SOB (shortness of breath): Acute on chronic Systolic and diastolic CHF Imaging suggestive of small B/L pleural effusion, trace ascites, equivocal gallbladder wall thickening likely due to volume overload ECHO: Mild concentric LVH, EF 35 to 39%, grade 1 diastolic dysfunction, mild MR, mild TR, mild right atrial enlargement [id number] Venous Doppler:No evidence of deep venous thrombus within the bilateral lower extremities. Monitor Daily weight, I/Os Monitor renal function/electrolytes Appreciate Cardiology Input Saturating well on room air Also started on Aldactone IV lasix transition to p.o. Lisinopril dose increased to 10mg daily Needs follow-up with cardiology upon discharge Suspected Pneumonitis CXR:Subtle right basilar airspace opacities possibly representing a pneumonitis. Clinical and radiographic follow-up are recommended Normal Procalcitonin Blood CX:Negative to date Zosyn transition to Levaquin (4) Abdominal distention: (5) Vomiting: Nausea, vomiting, diarrhea, abdominal distention ? Enteritis -CT abdomen: Moderate right and small left pleural effusions with trace abdominopelvic ascites. No bowel obstruction or bowel wall thickening. Noninflamed appendix. Scattered small bowel air-fluid levels within the abdomen and pelvis are likely physiologic. Considering reported clinical history of nausea, a mild enteritis could appear similarly. Prostamegaly with urinary bladder wall thickening suggestive of chronic bladder outlet obstruction. Correlate with urinalysis. Equivocal wall thickening of the gallbladder, likely secondary to volume overload. -stool studies : Negative -Received zosyn (6) Hyponatremia: Chronic hyponatremia Likely secondary to alcohol use Monitor sodium levels (7) Atrial fibrillation: Chronic atrial fibrillation Continue Eliquis for anticoagulation Continue metoprolol tartrate (8) DM2 (diabetes mellitus, type 2): Hb A1c: 9.3 on 07/2020 Hold metformin, Ozempic Insulin therapy while hospitalized (9) CKD (chronic kidney disease), stage III: Acute Kidney Injury on CKD III Due to diuretics Monitor renal functions Avoid nephrotoxic agents when possible (10) HTN (hypertension): Continue lisinopril, metoprolol (11) Alcohol abuse: ETOH level: 5.6 Alcohol withdrawal protocol Continue 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, thiamine, folic acid daily Panel Fitter to quit Monitor for withdrawal DVT Px On Eliquis Code Status Full Code Disposition Follows with Dr De for routine care for CHF Total Time Total Time Spent Total Time Spent (In Minutes): 45 minutes Total Time Includes: Examination of the Patient, Discharge Planning, Medication Reconciliation, Communication With Other Providers and Other Discharge Plan Discharge Items Patient Disposition: Home - Self-Care Reason For Visit: VOMITING, SOB Discharge Diagnosis: Acute on chronic congestive heart failure Suspected pneumonitis Acute kidney injury Condition on Discharge: Fair Activity: Per Instructions section Exercise/Sports: Gradually increase as tolerated Non-emergency contact: Primary Care Provider and Geomagnetician Call non-emergency contact if: you have any medication questions, your symptoms worsen, your pain is not controlled, your pain is concerning for you and you have a fever Follow-up/Referrals: Samir De MD [Primary Care Provider] - Diet: Carb Consistent or DM2 and Heart Healthy Fluids: 2000ml (8 cups) Addtl Attending Provider Instructions: Follow-up with your primary care physician Dr. De in 1 week Follow-up with your electrolysis operator Dr. Bone in 2 to 4 weeks Get Blood test (basic metabolic panel) in 1 week and follow-up with your physician. Take medications regularly as prescribed. Seek immediate medical attention if your symptoms reoccur or worsen Please take all medications as instructed on discharge list below. Please call if you have any questions or problems. You can reach a [facility] hospitalist on duty at [facility] 24 hours a day by calling [phone] Call your Primary Care doctor if any of the following symptoms or problems start or get worse: * Shortness of breath or difficulty breathing * Wake up at night short of breath * Chest pain * Cough * Swelling of your hands, feet, or legs * More fatigued or tired with your normal activity * Palpitations - sudden fast heart beats WEIGHT * Weigh yourself every morning after using the bathroom. * Use the same scale. * Wear the same amount of clothing. * Write your weight down on a chart. * Call your Primary Care doctor if you gain more than 2-3 pounds in 1-2 days. MEDICATIONS * Use this discharge instruction sheet for medication instructions. * Take your medications at the time your doctor ordered. * Do not skip a dose of your medicines. * If you miss a dose of medicine, take it as soon as possible, but DO NOT DOUBLE A DOSE. * Read your medicine information when you get home. * Know all of the side effects of your medicine. If in doubt, ask your pharmacist * Call your Primary Care doctor's office if you have any side effects. * Be sure all of your doctors know what medicine and herbs you take (including cold, flu, and herbal medicine). Take the following with you to your follow-up doctor appointments: * Weight Chart * Medication List * List of questions Do not drink excessive alcohol, beer or wine. Pending Studies at Discharge: No Stand-Alone Forms: [facility], Smoking Cessation Medications and DC Order Prescriptions: New furosemide 40 mg Tablet 40 mg PO DAILY Qty: 30 RF: 1 thiamine HCl (vitamin B1) [Vitamin B-1] 100 mg Tablet 100 mg PO QAM Qty: 30 RF: 0 spironolactone 25 mg Tablet 12.5 mg PO DAILY Qty: 30 RF: 0 folic acid 1 mg Tablet 1 mg PO QAM Qty: 30 RF: 0 levofloxacin 750 mg Tablet 750 mg PO DAILY@1100 Qty: 4 RF: 0 Continued atorvastatin 40 mg tablet 40 mg PO DAILY RF: 0 polyethylene glycol 3350 [Miralax] 17 gram Powder In Packet 17 g PO DAILY PRN (Reason: Constipation) RF: 0 nortriptyline [Pamelor] 25 mg capsule 25 mg PO HS RF: 0 lisinopril 5 mg tablet 5 mg PO DAILY RF: 0 albuterol 90 mcg/actuation Aerosol 90 - 180 mcg INHALATION Q4 PRN (Reason: Shortness Of Breath Or Wheezing) RF: 0 metformin 500 mg tablet extended release 24 hr 500 mg PO BID RF: 0 metoprolol tartrate 25 mg tablet 25 mg PO BID RF: 0 budesonide-formoterol [Symbicort] 160-4.5 mcg/actuation HFA aerosol inhaler 2 puff INHALATION BID RF: 0 Eliquis 5 mg tablet 5 mg PO BID RF: 0 Ozempic 0.25 mg or 0.5 mg(2 mg/1.5 mL) pen injector 0.5 mg SUBCUT WK RF: 0 Discharge Orders: Discharge Order (Routine); Ordered 11/28/20 Ordered By: Vikash Iverson/Other Patient Handouts: Managing Type 2 Diabetes, A1C Admission Data Admit Date/Time: 11/25/20 19:32 Attending Provider: Vikash Sinha Admit Provider: Kang Buchanan Primary Care Provider: Samir De Other Providers: Kang Buchanan ; Fili Golden ; David Bone ; Chepe Oropeza ; Clarence Mcqueen ; Lyndon Choe ; Jose Luis Bonilla ; Jennifer Argueta ; Kathrin Wolfe ; Dominique Dale ; Ben Cuello Other Interventions: Discharge Summary Assessment (RN) Last Done: 11/28/20 13:21
[2020-11-29] MEDS ORDERED: FUROSEMIDE 40 MG TAB PO SCH (09:00)
[2020-11-29] MEDS ORDERED: chlordiazePOXIDE HCl 5 MG CAP PO SCH (12:00)
== END 2020-11-28 15:35 | disposition home or self-care (01) ==
LOC: ED 13:51 → SUATTDRO 19:32 → INTOOBSV 19:32 → 2W 19:32

== ENCOUNTER 2021-08-22 17:50 | Inpatient (IN) ==
[2021-08-22 18:19] LABS: Basophils # (auto) 0.05 K/uL (0-0.2); Basophils % (auto) 0.6 %; Eosinophils # (auto) 0.15 K/uL (0-0.5); Eosinophils % (auto) 1.8 %; Hematocrit (blood only) 41.9 % (42-52); Hemoglobin 14.2 g/dL (14.0-18.0); Immature Granulocytes # (auto) 0.02 K/uL (0.00-0.02); Immature Granulocytes % (auto) 0.2 %; Lymphocytes # (auto) 2.16 K/uL (1.2-3.4); Lymphocytes % (auto) 25.7 %; Mean Corpuscular Hemoglobin 31.6 pg (25-34); Mean Corpuscular Hgb Conc 33.9 g/dL (32-36); Mean Corpuscular Volume 93.1 fL (80-100); Mean Platelet Volume 11.1 fL (7.4-10.4); Monocytes # (auto) 0.91 K/uL (0.11-0.59); Monocytes % (auto) 10.8 %; Neutrophils # (auto) 5.12 K/uL (1.4-6.5); Neutrophils % (auto) 60.9 %; Platelet Count 233 K/uL (130-400); RDW Coefficient of Variation 14.5 % (11.5-14.5); RDW Standard Deviation 48.8 fL (36.4-46.3); White Blood Count 8.41 K/uL (4.8-10.8)
[2021-08-22 18:27] LABS: INR 1.2 (0.9-1.1); Prothrombin Time 12.3 Seconds (9.0-12.0)
--- NOTE | 2021-08-22 18:44 | XRay Report ---
XR chest 1V portable HISTORY: Atypical Chest Pain COMPARISON: Chest 11/27/2020 FINDINGS: No pneumothorax. There are trace bilateral pleural effusions. The cardiac silhouette remain s mildly enlarged. Patchy bibasilar densities are similar to the prior study. The upper lung zones ar e clear. There is mild central pulmonary vascular congestion without overt edema. IMPRESSION: 1. Cardiomegaly with mild central pulmonary vascular congestion without overt edema. 2. Trace bilateral pleural effusions. 3. Patchy bibasilar densities persist. This may represent atelectasis or pneumonia. ACT 112: Negative or not required by law. Electronically signed by: Duc Reich M.D. 08/22/2021 6:42 PM
[2021-08-22] MEDS ORDERED: ONDANSETRON INJ 2 MG/ML 2 ML VIAL IV STA (18:45)
[2021-08-22] MEDS ORDERED: ALBUT/IPRATROP 3MG/0.5MG NEB 3 ML VIAL NEB STA (18:45)
[2021-08-22] MEDS ORDERED: FAMOTIDINE 20MG IV PUSH 20 MG/5 ML SYR IV STA (18:45)
[2021-08-22 18:47] LABS: Albumin Globulin Ratio 1.2 (0.9-2); Albumin Level 3.7 gm/dl (3.4-5.0); Bilirubin Direct 0.1 mg/dl (0-0.2); Bilirubin,Total 0.6 mg/dl (0.2-1.0); Calcium 7.9 mg/dl (8.5-10.1); Creatinine Clr Calc Pharmacy 69.5 ml/min; Est GFR (African American) 80.2 ml/min; Est GFR (Non-African American) 69.2 ml/min; Globulin 3.2 gm/dl (2.5-4.0); Magnesium 2.1 mg/dl (1.7-2.4); Phosphorus 3.3 mg/dl (2.5-4.9); Potassium 3.3 mmol/L (3.5-5.1); Total Protein 6.9 gm/dl (6.0-8.3)
[2021-08-22 18:57] LABS: Troponin I 0.07 ng/ml (0-0.04)
[2021-08-22] MEDS ORDERED: OPTIRAY 320 100ml IV ONE (19:26)
--- NOTE | 2021-08-22 19:46 | CT Scan Report ---
CT OF THE ABDOMEN AND PELVIS WITH CONTRAST CLINICAL HISTORY: Abdominal pain. Fluid retention. COMPARISON STUDY: CT of the abdomen and pelvis November 25, 2020. TECHNIQUE: Following IV administration of 94 mL of Optiray, axial images of the abdomen and pelvis we re obtained from the lung bases to the proximal femurs. Images were reviewed in the axial, sagittal, and coronal planes. IV contrast was administered without complication. Automated exposure control wa s utilized for the study. A dose lowering technique was utilized adhering to the principles of ALARA . CT DOSE: 697.49 mGy.cm FINDINGS: Within visualized portions of the lower chest, note is made of cardiomegaly, small bilatera l pleural effusions and interlobular septal thickening consistent with pulmonary edema. No pneumatosis, free air or portal venous gas is present. Small amount of abdominal and pelvic ascite s is noted. No fluid collection is suggest an abscess. Body wall edema is present. Presacral edema is present. Moderate gallbladder wall thickening is noted. The spleen, adrenal glands, kidneys and panc reas are unremarkable with exception of multiple small wedge-shaped hypodensities within the left kid jamil which favor scarring or small old infarcts. No biliary or pancreatic ductal dilatation is present . There is no hydronephrosis. There is no evidence for a bowel obstruction. The caliber and wall thic kness of small and large bowel are normal. Appendix is normal. No abdominal or pelvic lymphadenopathy is noted. Bladder wall thickening is similar to prior CT. Extensive atherosclerotic plaque within th e abdominal aorta and branch vessels is noted. Evaluation for stenoses is difficult given extensive c alcified plaque on this non-CTA exam. IMPRESSION: 1. No bowel obstruction. No bowel wall thickening. Normal appendix. 2. Evidence for volume overload with interstitial pulmonary edema, small bilateral pleural effusions, body wall edema and a small amount of abdominal and pelvic ascites. Gallbladder wall thickening is l ikely due to volume overload as well. 3. Mildly distended bladder. Bladder wall thickening, likely chronic. 4. Multiple small wedge-shaped hypodensities within the left kidney. Although age indeterminate, thes e are probably not acute given volume loss and favor scarring or old small infarcts. ACT 112: Negative or not required by law. Electronically signed by: Ameya Henriquez M.D. 08/22/2021 7:44 PM
--- NOTE | 2021-08-22 19:57 | Emergency Department Note ---
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 AGE: 71 SEX: M ARRIVES VIA: Walk-In INFORMANT: Patient ED PROVIDER(S): Thomas Gamez MD CHIEF COMPLAINT: SOB, fluid retention PLAN: Disposition: Admit MEDICAL DECISION MAKING: The patient is a pleasant 71-year-old gentleman with a past medical history of COPD, type 2 diabetes, alcohol abuse, CKD, hypertension, hyperlipidemia, paroxysmal atrial fibrillation, nonischemic cardiomyopathy who presents to the emergency department accompanied by his son for evaluation of progressive worsening shortness of breath over the past 2 weeks with additional symptoms of fluid retention where he feels his abdomen has become increasingly bloated and has developed intermittent abdominal pain. He reports intermittent nausea but denies vomiting. He denies diarrhea or constipation/straining. He last moved his bowels this morning. He reports he still drinks alcohol daily but has cut back and only has 3 beers. He denies any history of alcohol withdrawal. On arrival the patient is uncomfortable no acute distress, afebrile with O2 saturation 97% on room air and vital signs otherwise stable. However he does appear mildly dyspneic. He has diminished breath sounds bilaterally with scant underlying wheeze. His abdomen is mildly distended but soft with generalized di scomfort without discrete tenderness. There is no guarding or rebound. He has 1+ bilateral lower extremity pitting edema. EKG demonstrates atrial fibrillation without overt acute ischemia. Chest x-ray with vascular congestion and trace bilateral pleural effusions. Lung findings further characterized on CT which demonstrates interstitial pulmonary edema. WBC, hemoglobin and platelets within normal limits. Chemistry without metabolic acidosis. Sodium 129 with glucose 189. Potassium 3.3 with repletion provided. Electrolytes otherwise without significant abnormality. LFTs similar to prior. Troponin 0.07 and BNP 2800 in setting of the patient's known CHF. Lipase is not elevated. TSH is elevated 9.5 however with free T4 within normal limits. UA without evidence of infection. Blood alcohol was detectable at 12.6. Covid-19 RNA, NAAT negative. CT of the abdomen pelvis was negative for acute process and likely reflects the patient's volume overload. On reevaluation patient did feel somewhat improved and had improved work of breathing after DuoNeb and Lasix. Given the severity of the patient's symptoms related to his hypervolemia he does agree with plan for admission. Case was discussed with Dr. Rodrigez, [facility] hospitalist, who will evaluate the patient for admission. Triage Nursing notes reviewed and agree them. Prior medical records reviewed Vital Signs: reviewed and remarkable for no significant abnormalities Differential diagnosis: Appendicitis, testicular torsion, infections, diverticulitis, UTI, obstruction, mesenteric ischemia, aortic pathology, inflammatory bowel disease, renal colic, PUD, pancreatitis, biliary pathology, hernia, volvulus, constipation, as well as other pathologies. ER treatment provided: See below. Diagnostics interpreted by me: ECG: Atrial fibrillation, 106 bpm, PVCs, incomplete right bundle branch block, no overt ST elevation or depression, QTC 433, cures 108. Cardiac Monitoring: An order for continuous cardiac monitoring was placed and demonstrated Atrial fibrillation, 106 bpm, PVCs. Laboratory studies: See below Imaging studies: See below Consultation(s): [facility]. HPI: The patient is a pleasant 71-year-old gentleman with a past medical history of COPD, type 2 diabetes, alcohol abuse, CKD, hypertension, hyperlipidemia, paroxysmal atrial fibrillation, nonischemic cardiomyopathy who presents to the emergency department accompanied by his son for evaluation of progressive worsening shortness of breath over the past 2 weeks with additional symptoms of fluid retention where he feels his abdomen has become increasingly bloated and has developed intermittent abdominal pain. He reports intermittent nausea but denies vomiting. He denies diarrhea or constipation/straining. He last moved his bowels this morning. He reports he still drinks alcohol daily but has cut back and only has 3 beers. He denies any history of alcohol withdrawal. ROS: See above HPI for pertinent positives & negatives. A total of 10 systems reviewed and were otherwise negative. PAST MEDICAL HISTORY:See Below PAST SURGICAL HISTORY:See Below FAMILY HISTORY:See Below SOCIAL HISTORY:See Below HOME MEDICATIONS:See Below ALLERGIES:See Below VITALS:See Below PHYSICAL EXAMINATION: GENERAL: Awake, alert, mildly dyspneic-appearing, in no distress HENT: Normocephalic, atraumatic. Oropharynx unremarkable. EYES: Normal conjunctiva. Sclera non-icteric. NECK: Supple. No nuchal rigidity. FROM. No JVD. RESPIRATORY: Diminished breath sounds bilaterally with scant underlying wheeze. Mild increased work of breathing but no acute distress. CARDIAC: Regular rate, normal rhythm. Extremities warm and well perfused. Pulses equal. ABDOMEN: Mild distention but soft. Generalized discomfort without discrete tenderness. No rebound or guarding. No masses. RECTAL: Deferred. MUSCULOSKELETAL: Chest examination reveals no tenderness. The back is symmetrical on inspection without obvious abnormality. There is no CVA tenderness to palpation. No joint edema. LOWER EXTREMITIES: Calves are equal size bilaterally and non-tender. 1+ bilateral lower extremity pitting edema. No discoloration. NEURO: Normal sensorium. No sensory or motor deficits noted. SKIN: No rash or jaundice noted. Thomas Gamez MD Past Med/Surg History Medical History Alcohol abuse Anxiety Atrial fibrillation CKD (chronic kidney disease), stage III COPD (chronic obstructive pulmonary disease) DM2 (diabetes mellitus, type 2) Fracture dislocation of right ankle GERD (gastroesophageal reflux disease) HLD (hyperlipidemia) HTN (hypertension) Left ventricular dysfunction Surgical History History of ankle surgery History of cardiac cath 2008-nonocclussive CAD Family History Brother Cancer pancreatic cancer Mother Diabetes Sister Diabetes Father Heart disease Social History Smoking Status: Never smoker Tobacco Type: Cigarettes Hx Alcohol Use: Yes Alcohol type: beer Hx Substance Use: No Preferred Language: Yoruba Communication Ability: Effective Beliefs That Will Affect Care: None marital status: Unknown Current Living Situation: Alone How many Children do You have: 2 Feels Safe at Home: Yes Assistive Devices: None Allergies Allergies Allergy/AdvReac Type Severity Reaction Status Date / Time No Known Allergies Allergy Verified 08/22/21 19:06 Home Meds Home Medications Medication Instructions Recorded Confirmed apixaban 5 mg tablet (Eliquis) 5 mg PO BID 11/25/20 08/22/21 atorvastatin 40 mg tablet 40 mg PO DAILY 11/25/20 08/22/21 lisinopril 5 mg tablet 5 mg PO DAILY 11/25/20 08/22/21 metformin 500 mg tablet,extended 500 mg PO BID 11/25/20 08/22/21 release 24 hr acetaminophen 500 mg tablet 1,000 mg PO Q6H PRN 08/22/21 08/22/21 (Tylenol Extra Strength) albuterol sulfate 2.5 mg INHALATION Q4H PRN 08/22/21 08/22/21 albuterol sulfate 90 mcg/actuation 2 puff INHALATION Q4H PRN 08/22/21 08/22/21 aerosol inhaler aluminum-mag hydroxide-simethicone 15 ml PO Q6H PRN 08/22/21 08/22/21 200 mg-200 mg-20 mg/5 mL oral susp bismuth subsalicylate 525 mg/15 mL 525 mg PO QID PRN 08/22/21 08/22/21 oral suspension docusate sodium 100 mg capsule 100 mg PO DAILY 08/22/21 08/22/21 fluticasone 250 mcg-salmeterol 50 1 inh INHALATION BID 08/22/21 08/22/21 mcg/dose blistr powdr for inhalation (Advair Diskus) furosemide 20 mg tablet 20 mg PO DAILY 08/22/21 08/22/21 glipizide 10 mg tablet, extended 10 mg PO DAILY 08/22/21 08/22/21 release 24 hr metoprolol succinate 100 mg 100 mg PO DAILY 08/22/21 08/22/21 tablet,extended release 24 hr spironolactone 25 mg tablet 12.5 mg PO 3XWK 08/22/21 08/22/21 Results & Data (ED) Vital Signs Vital Signs - 24 hr 08/22/21 17:52 08/22/21 18:30 Temperature 36.4 C L Temperature Source Temporal Artery Scan Pulse Rate 95 H 96 H Pulse Rate from SpO2 Sensor 95 H Respiratory Rate 16 29 H Respiratory Effort / Characteristics Non-Labored Respiratory Depth Normal Blood Pressure 138/84 153/103 H Blood Pressure Mean 102 119 Pulse Oximetry 97 94 Oxygen Delivery Method Room Air Room Air Sepsis Recent Fever Within 48 Hours No Sepsis New/Unexplained Change in Mental Status No Sepsis Action Taken by Nursing No Action Required Laboratory Data Attestation: I reviewed the patient's lab results. Result diagrams: 08/22/21 18:08 08/22/21 18:08 Lab Results 08/22/21 08/22/21 08/22/21 Range/Units 18:08 18:08 18:08 WBC 8.41 (4.8-10.8) K/uL RBC 4.50 L (4.7-6.1) M/uL Hgb 14.2 (14.0-18.0) g/dL Hct 41.9 L (42-52) % MCV 93.1 (80-100) fL MCH 31.6 (25-34) pg MCHC 33.9 (32-36) g/dL RDW Std Deviation 48.8 H (36.4-46.3) fL RDW Coeff of Cole 14.5 (11.5-14.5) % Plt Count 233 (130-400) K/uL MPV 11.1 H (7.4-10.4) fL Immature Gran % (Auto) 0.2 % Neut % (Auto) 60.9 % Lymph % (Auto) 25.7 % Mobile % (Auto) 10.8 % Eos % (Auto) 1.8 % Baso % (Auto) 0.6 % Neut # (Auto) 5.12 (1.4-6.5) K/uL Lymph # (Auto) 2.16 (1.2-3.4) K/uL Mobile # (Auto) 0.91 H (0.11-0.59) K/uL Eos # (Auto) 0.15 (0-0.5) K/uL Baso # (Auto) 0.05 (0-0.2) K/uL Immature Gran # (Auto) 0.02 (0.00-0.02) K/uL PT 12.3 H (9.0-12.0) Seconds INR 1.2 H (0.9-1.1) Sodium 129 L (136-145) mmol/L Potassium 3.3 L (3.5-5.1) mmol/L Chloride 91 L (98-107) mmol/L Carbon Dioxide 26 (21-32) mmol/L Anion Gap 12 H (3-11) BUN 14 (6-23) mg/dl Creatinine 1.08 (0.6-1.4) mg/dl Est Cr Clr Drug Dosing 69.5 ml/min Est GFR ( Amer) 80.2 ml/min Est GFR (Non-Af Amer) 69.2 ml/min BUN/Creatinine Ratio 13.0 (10-20) Glucose 189 H (70-99(Fasting)) mg/dl Calcium 7.9 L (8.5-10.1) mg/dl Phosphorus 3.3 (2.5-4.9) mg/dl Magnesium 2.1 (1.7-2.4) mg/dl Total Bilirubin 0.6 (0.2-1.0) mg/dl Direct Bilirubin 0.1 (0-0.2) mg/dl AST 55 H (13-39) U/L ALT 64 H (7-52) U/L Alkaline Phosphatase 156 H (34-104) U/L Troponin I 0.07 H* (0-0.04) ng/ml B-Natriuretic Peptide (0-100) pg/ml Total Protein 6.9 (6.0-8.3) gm/dl Albumin 3.7 (3.4-5.0) gm/dl Globulin 3.2 (2.5-4.0) gm/dl Albumin/Globulin Ratio 1.2 (0.9-2) Lipase 26 (11-82) U/L TSH (0.300-4.500) uIu/ml Urine Color Urine Appearance (Clear) Urine pH (4.5-7.5) Ur Specific [place] (1.000-1.030) Urine Protein (Negative) Urine Glucose (UA) (Negative) Urine Ketones (Negative) Urine Blood (Negative) Urine Nitrite (Negative) Urine Bilirubin (Negative) Urine Urobilinogen (Negative) Ur Leukocyte Esterase (Negative) Urine WBC (Auto) (0-5) /hpf Urine RBC (Auto) (0-4) /hpf U Hyaline Cast (Auto) (0-5) /lpf U Epithel Cells (Auto) (0-5) /lpf Urine Bacteria (Auto) (Negative) Ethyl Alcohol mg/dL (<10.0) mg/dl SARS-CoV-2, RNA, NAAT (NEGATIVE) 08/22/21 08/22/21 08/22/21 Range/Units 18:08 18:23 18:23 WBC (4.8-10.8) K/uL RBC (4.7-6.1) M/uL Hgb (14.0-18.0) g/dL Hct (42-52) % MCV (80-100) fL MCH (25-34) pg MCHC (32-36) g/dL RDW Std Deviation (36.4-46.3) fL RDW Coeff of Cole (11.5-14.5) % Plt Count (130-400) K/uL MPV (7.4-10.4) fL Immature Gran % (Auto) % Neut % (Auto) % Lymph % (Auto) % [place] % (Auto) % Eos % (Auto) % Baso % (Auto) % Neut # (Auto) (1.4-6.5) K/uL Lymph # (Auto) (1.2-3.4) K/uL Mobile # (Auto) (0.11-0.59) K/uL Eos # (Auto) (0-0.5) K/uL Baso # (Auto) (0-0.2) K/uL Immature Gran # (Auto) (0.00-0.02) K/uL PT (9.0-12.0) Seconds INR (0.9-1.1) Sodium (136-145) mmol/L Potassium (3.5-5.1) mmol/L Chloride (98-107) mmol/L Carbon Dioxide (21-32) mmol/L Anion Gap (3-11) BUN (6-23) mg/dl Creatinine (0.6-1.4) mg/dl Est Cr Clr Drug Dosing ml/min Est GFR ( Amer) ml/min Est GFR (Non-Af Amer) ml/min BUN/Creatinine Ratio (10-20) Glucose (70-99(Fasting)) mg/dl Calcium (8.5-10.1) mg/dl Phosphorus (2.5-4.9) mg/dl Magnesium (1.7-2.4) mg/dl Total Bilirubin (0.2-1.0) mg/dl Direct Bilirubin (0-0.2) mg/dl AST (13-39) U/L ALT (7-52) U/L Alkaline Phosphatase (34-104) U/L Troponin I (0-0.04) ng/ml B-Natriuretic Peptide 2870 H (0-100) pg/ml Total Protein (6.0-8.3) gm/dl Albumin (3.4-5.0) gm/dl Globulin (2.5-4.0) gm/dl Albumin/Globulin Ratio (0.9-2) Lipase (11-82) U/L TSH 9.589 H (0.300-4.500) uIu/ml Urine Color Urine Appearance (Clear) Urine pH (4.5-7.5) Ur Specific [place] (1.000-1.030) Urine Protein (Negative) Urine Glucose (UA) (Negative) Urine Ketones (Negative) Urine Blood (Negative) Urine Nitrite (Negative) Urine Bilirubin (Negative) Urine Urobilinogen (Negative) Ur Leukocyte Esterase (Negative) Urine WBC (Auto) (0-5) /hpf Urine RBC (Auto) (0-4) /hpf U Hyaline Cast (Auto) (0-5) /lpf U Epithel Cells (Auto) (0-5) /lpf Urine Bacteria (Auto) (Negative) Ethyl Alcohol mg/dL 12.6 H (<10.0) mg/dl SARS-CoV-2, RNA, NAAT (NEGATIVE) 08/22/21 08/22/21 Range/Units 18:51 21:27 WBC (4.8-10.8) K/uL RBC (4.7-6.1) M/uL Hgb (14.0-18.0) g/dL Hct (42-52) % MCV (80-100) fL MCH (25-34) pg MCHC (32-36) g/dL RDW Std Deviation (36.4-46.3) fL RDW Coeff of Cole (11.5-14.5) % Plt Count (130-400) K/uL MPV (7.4-10.4) fL Immature Gran % (Auto) % Neut % (Auto) % Lymph % (Auto) % Mobile % (Auto) % Eos % (Auto) % Baso % (Auto) % Neut # (Auto) (1.4-6.5) K/uL Lymph # (Auto) (1.2-3.4) K/uL [place] # (Auto) (0.11-0.59) K/uL Eos # (Auto) (0-0.5) K/uL Baso # (Auto) (0-0.2) K/uL Immature Gran # (Auto) (0.00-0.02) K/uL PT (9.0-12.0) Seconds INR (0.9-1.1) Sodium (136-145) mmol/L Potassium (3.5-5.1) mmol/L Chloride (98-107) mmol/L Carbon Dioxide (21-32) mmol/L Anion Gap (3-11) BUN (6-23) mg/dl Creatinine (0.6-1.4) mg/dl Est Cr Clr Drug Dosing ml/min Est GFR ( Amer) ml/min Est GFR (Non-Af Amer) ml/min BUN/Creatinine Ratio (10-20) Glucose (70-99(Fasting)) mg/dl Calcium (8.5-10.1) mg/dl Phosphorus (2.5-4.9) mg/dl Magnesium (1.7-2.4) mg/dl Total Bilirubin (0.2-1.0) mg/dl Direct Bilirubin (0-0.2) mg/dl AST (13-39) U/L ALT (7-52) U/L Alkaline Phosphatase (34-104) U/L Troponin I (0-0.04) ng/ml B-Natriuretic Peptide (0-100) pg/ml Total Protein (6.0-8.3) gm/dl Albumin (3.4-5.0) gm/dl Globulin (2.5-4.0) gm/dl Albumin/Globulin Ratio (0.9-2) Lipase (11-82) U/L TSH (0.300-4.500) uIu/ml Urine Color Yellow Urine Appearance Clear (Clear) Urine pH 7.0 (4.5-7.5) Ur Specific [place] 1.011 (1.000-1.030) Urine Protein Trace H (Negative) Urine Glucose (UA) Negative (Negative) Urine Ketones Negative (Negative) Urine Blood Negative (Negative) Urine Nitrite Negative (Negative) Urine Bilirubin Negative (Negative) Urine Urobilinogen Negative (Negative) Ur Leukocyte Esterase Negative (Negative) Urine WBC (Auto) 0 (0-5) /hpf Urine RBC (Auto) 0-4 (0-4) /hpf U Hyaline Cast (Auto) 0 (0-5) /lpf U Epithel Cells (Auto) 0-5 (0-5) /lpf Urine Bacteria (Auto) Negative (Negative) Ethyl Alcohol mg/dL (<10.0) mg/dl SARS-CoV-2, RNA, NAAT NEGATIVE (NEGATIVE) Administered Medications Discontinued Medications Albuterol (Albut/Ipratrop 3mg/0.5mg Neb 3 Ml Vial) 3 ml NEB NOW STA; Protocol Stop: 08/22/21 18:46 Last Admin: 08/22/21 18:56 Dose: 3 ml Documented by: [id number] Furosemide (Furosemide Inj 20 Mg/2 Ml Vial) 20 mg IV ONE ONE Stop: 08/22/21 20:02 Last Admin: 08/22/21 20:16 Dose: 20 mg Documented by: [id number] Famotidine (Pepcid 20mg Iv Push) 20 mg in 5 mls @ 2.5 mls/min IV NOW STA Stop: 08/22/21 18:46 Last Admin: 08/22/21 18:56 Dose: 2.5 mls/min Documented by: [id number] Potassium Chloride (K Emile / Wtr) 10 meq in 100 mls @ 100 mls/hr IV Q1H FILOMENA; Protocol Stop: 08/22/21 22:14 Last Admin: 08/22/21 20:16 Dose: 50 mls/hr Documented by: [id number] Ioversol (Optiray 320 100ml) 94 ml IV ONCE ONE Stop: 08/22/21 19:27 Last Admin: 08/22/21 19:26 Dose: 94 ml Documented by: [id number] Ondansetron HCl (Ondansetron Inj 2 Mg/Ml 2 Ml Vial) 4 mg IV NOW STA Stop: 08/22/21 18:46 Last Admin: 08/22/21 18:56 Dose: 4 mg Documented by: [id number] Imaging Data Radiologist's Impression: Chest X-Ray 08/22/21 17:57 XR chest 1V portable HISTORY: Atypical Chest Pain COMPARISON: Chest 11/27/2020 FINDINGS: No pneumothorax. There are trace bilateral pleural effusions. The cardiac silhouette remains mildly enlarged. Patchy bibasilar densities are sim ilar to the prior study. The upper lung zones are clear. There is mild central pulmonary vascular congestion without overt edema. IMPRESSION: 1. Cardiomegaly with mild central pulmonary vascular congestion without overt edema. 2. Trace bilateral pleural effusions. 3. Patchy bibasilar densities persist. This may represent atelectasis or pneumonia. ACT 112: Negative or not required by law. Electronically signed by: Duc Reich M.D. 08/22/2021 6:42 PM Abdomen/Pelvis CT 08/22/21 18:45 CT OF THE ABDOMEN AND PELVIS WITH CONTRAST CLINICAL HISTORY: Abdominal pain. Fluid retention. COMPARISON STUDY: CT of the abdomen and pelvis November 25, 2020. TECHNIQUE: Following IV administration of 94 mL of Optiray, axial images of the abdomen and pelvis were obtained from the lung bases to the proximal femurs. Images were reviewed in the axial, sagittal, and coronal planes. IV contrast was administered without complication. Automated exposure control was utilized for the study. A dose lowering technique was utilized adhering to the principles of ALARA. CT DOSE: 697.49 mGy.cm FINDINGS: Within visualized portions of the lower chest, note is made of cardiomegaly, small bilateral pleural effusions and interlobular septal thickening consistent with pulmonary edema. No pneumatosis, free air or portal venous gas is present. Small amount of abdominal and pelvic ascites is noted. No fluid collection is suggest an abscess. Body wall edema is present. Presacral edema is present. Moderate gallbladder wall thickening is noted. The spleen, adrenal glands, kidneys and pancreas are unremarkable with exception of multiple small wedge-shaped hypodensities within the left kidney which favor scarring or small old infarcts. No biliary or pancreatic ductal dilatation is present. There is no hydronephrosis. There is no evidence for a bowel obstruction. The caliber and wall thickness of small and large bowel are normal. Appendix is normal. No abdominal or pelvic lymphadenopathy is noted. Bladder wall thickening is similar to prior CT. Extensive atherosclerotic plaque within the abdominal aorta and branch vessels is noted. Evaluation for stenoses is difficult given extensive calcified plaque on this non-CTA exam. IMPRESSION: 1. No bowel obstruction. No bowel wall thickening. Normal appendix. 2. Evidence for volume overload with interstitial pulmonary edema, small bilateral pleural effusions, body wall edema and a small amount of abdominal and pelvic ascites. Gallbladder wall thickening is likely due to volume overload as well. 3. Mildly distended bladder. Bladder wall thickening, likely chronic. 4. Multiple small wedge-shaped hypodensities within the left kidney. Although age indeterminate, these are probably not acute given volume loss and favor scarring or old small infarcts. ACT 112: Negative or not required by law. Electronically signed by: Ameya Henriquez M.D. 08/22/2021 7:44 PM Discharge Plan Visit Data Chief Complaint: GI Assessment Stated Complaint: SOB, ABDOM PAIN, CHEST PAIN, FLUID IN LUNGS ED Provider: Thomas Gamez Discharge Problem: CHF (congestive heart failure), COPD (chronic obstructive pulmonary disease), Hypervolemia, Atrial fibrillation, Elevated troponin, Hypokalemia Forms Stand Alone Forms: [facility] Prescriptions Prescriptions: No Action atorvastatin 40 mg tablet 40 mg PO DAILY RF: 0 lisinopril 5 mg tablet 5 mg PO DAILY RF: 0 metformin 500 mg tablet extended release 24 hr 500 mg PO BID RF: 0 Eliquis 5 mg tablet 5 mg PO BID RF: 0 fluticasone propion-salmeterol [Advair Diskus] 250-50 mcg/dose Blister With Device 1 inh INHALATION BID RF: 0 albuterol sulfate 2.5 mg /3 mL (0.083 %) solution for nebulization 2.5 mg inhalation Q4H PRN (Reason: Wheezing) RF: 0 glipizide 10 mg tablet extended release 24hr 10 mg PO DAILY RF: 0 metoprolol succinate 100 mg Tablet Extended Release 24 Hr 100 mg PO DAILY RF: 0 acetaminophen [Tylenol Extra Strength] 500 mg Tablet 1,000 mg PO Q6H PRN (Reason: Pain) RF: 0 docusate sodium 100 mg capsule 100 mg PO DAILY RF: 0 furosemide 20 mg tablet 20 mg PO DAILY RF: 0 alum-mag hydroxide-simeth [Maalox] 200-200-20 mg/5 mL Suspension 15 ml PO Q6H PRN (Reason: Upset Stomach) RF: 0 albuterol sulfate 90 mcg/actuation HFA aerosol inhaler 2 puff INHALATION Q4H PRN (Reason: Wheezing/Dyspnea) RF: 0 Pepto-Bismol 525 mg/15 mL Suspension 525 mg PO QID PRN (Reason: upset stomach) RF: 0 spironolactone 25 mg tablet 12.5 mg PO 3XWK RF: 0 Referrals Referrals: Samir De MD [Primary Care Provider] - Discharge Problem: CHF (congestive heart failure) Qualifiers: Heart failure type: unspecified Heart failure chronicity: chronic Qualified Code(s): I50.9 - Heart failure, unspecified COPD (chronic obstructive pulmonary disease) Qualifiers: COPD type: unspecified COPD Qualified Code(s): J44.9 - Chronic obstructive pulmonary disease, unspecified Hypervolemia Qualifiers: Hypervolemia type: unspecified Qualified Code(s): E87.70 - Fluid overload, unspecified Atrial fibrillation Qualifiers: Atrial fibrillation type: permanent Qualified Code(s): I48.21 - Permanent atrial fibrillation
[2021-08-22] MEDS ORDERED: FUROSEMIDE INJ 20 MG/2 ML VIAL IV ONE (20:01)
[2021-08-22] MEDS: POTASSIUM CHLORIDE / WTR 10 MEQ/100 ML PLCT IV SCH ×2 (20:16→22:45)
[2021-08-22 21:43] LABS: Thyroid Stimulating Hormone 9.589 uIu/ml (0.300-4.500)
[2021-08-22 21:48] LABS: Appearance Urine Clear (Clear); Bacteria Urine Automated Negative (Negative); Bilirubin Urine Negative (Negative); Blood Urine Negative (Negative); Cast Urine Automated 0 /lpf (0-5); Color Urine Yellow; Epithelial Cell Urine Auto 0-5 /lpf (0-5); Glucose Urine UA Negative (Negative); Ketones Urine Negative (Negative); Leukocyte Esterase Urine Negative (Negative); Nitrite Urine Negative (Negative); Protein Urine Trace (Negative); RBC Urine Automated 0-4 /hpf (0-4); Specific Gravity Urine 1.011 (1.000-1.030); Urobilinogen Urine Negative (Negative); WBC Urine Automated 0 /hpf (0-5)
[2021-08-22 22:15] LABS: T4 Free Thyroxine 0.87 ng/dl (0.61-1.60)
[2021-08-22] MEDS ORDERED: DOXYCYCLINE HYCLATE 100 MG in DEXTROSE 5% 100 ML IV STA (23:03)
[2021-08-22] MEDS ORDERED: POTASSIUM CHLORIDE CRTAB 20 MEQ TABCR PO STA (23:11)
[2021-08-22] MEDS ORDERED: INSULIN GLARGINE SOLOSTAR 100 UNITS/ML 3 ML PEN SC STA (23:13)
--- NOTE | 2021-08-22 23:14 | History & Physical Report ---
Date of Service August 22, 2021 Assessment & Plan (1) Increasing shortness of breath: Plan: Multifactorial : Decompensated heart failure, history chronic systolic heart failure rule out progression of valvular heart disease, history medication noncompliance as per records Complicated bronchitis, no sepsis for now Minimal troponin elevation secondary to illness, hx nonocclusive CAD HTN, stable A. fib, rate controlled on Eliquis hx COPD, pulmonary hypertension as per records, past tobacco abuse hyperlipidemia on statin Rx DM2 on oral medications, suboptimal control as of recent outpatient hemoglobin A1c of 15.01 May 2021 chronic hyponatremia chronic anemia, hemoglobin at baseline alcohol abuse as per records. Possible functional disability (Patient told ER provider that he has trouble caring for himself at home. PCU Diuretic Rx Strict I/Os, daily weights, CHF education, fluid restriction Update TTE, Cardiology consult Re: Decompensated heart failure Trend troponin Doxycycline for complicated bronchitis, nebs as needed Basal bolus insulin, ISS BG goal 1 10-1 40, carb count coverage, update hemoglobin A1c FREDERICK S, DT precautions PT OT eval DVT prophylaxis. Story of [employer] Full code Text document was generated using [employer] voice recognition software. It may contain grammatical or spelling errors. Kindly contact undersigned for clarification of any documentation item in question. History of Present Illness Chief Complaint: Worsening shortness of breath, fluid retention Primary Care Provider: Samir De MD History obtained from patient and records. Medical history significant for chronic systolic failure (EF 35-39%, TTE 2020,), valvular heart disease (moderate MR/TR, mild AR TTE 2020), nonocclusive CAD, COPD, pulmonary hypertension, hypertension, hyperlipidemia, A. fib on Eliquis, DM2 on oral medications, medication noncompliance as per records, chronic hyponatremia, chronic anemia (baseline hemoglobin of 13 ), past tobacco abuse, alcohol abuse as per records. Last confinement November 2020 for decompensated heart failure. Patient seen at recruiter coordinator office last month. Patient with cough and fluid retention issues. Furosemide and spironolactone prescribed. 2 weeks ago, patient noted junky cough symptoms and chest pain with coughing. No known recent COVID-19 contacts. Patient received COVID-19 vaccination. Increase in fluid retention and orthopnea symptoms despite compliance with home medications as per patient. Denies dietary indiscretion or OTC NSAID intake. Patient received Lasix and neb treatment upon arrival at the ER. 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 Allergies Allergy/AdvReac Type Severity Reaction Status Date / Time No Known Allergies Allergy Verified 08/22/21 19:06 Home Medications Medication Instructions Recorded Confirmed Type apixaban 5 mg tablet (Eliquis) 5 mg PO BID 11/25/20 08/22/21 History atorvastatin 40 mg tablet 40 mg PO DAILY 11/25/20 08/22/21 History lisinopril 5 mg tablet 5 mg PO DAILY 11/25/20 08/22/21 History metformin 500 mg tablet,extended 500 mg PO BID 11/25/20 08/22/21 History release 24 hr acetaminophen 500 mg tablet 1,000 mg PO Q6H PRN 08/22/21 08/22/21 History (Tylenol Extra Strength) albuterol sulfate 2.5 mg INHALATION Q4H PRN 08/22/21 08/22/21 History albuterol sulfate 90 mcg/actuation 2 puff INHALATION Q4H PRN 08/22/21 08/22/21 History aerosol inhaler aluminum-mag hydroxide-simethicone 15 ml PO Q6H PRN 08/22/21 08/22/21 History 200 mg-200 mg-20 mg/5 mL oral susp bismuth subsalicylate 525 mg/15 mL 525 mg PO QID PRN 08/22/21 08/22/21 History oral suspension docusate sodium 100 mg capsule 100 mg PO DAILY 08/22/21 08/22/21 History fluticasone 250 mcg-salmeterol 50 1 inh INHALATION BID 08/22/21 08/22/21 History mcg/dose blistr powdr for inhalation (Advair Diskus) furosemide 20 mg tablet 20 mg PO DAILY 08/22/21 08/22/21 History glipizide 10 mg tablet, extended 10 mg PO DAILY 08/22/21 08/22/21 History release 24 hr metoprolol succinate 100 mg 100 mg PO DAILY 08/22/21 08/22/21 History tablet,extended release 24 hr spironolactone 25 mg tablet 12.5 mg PO 3XWK 08/22/21 08/22/21 History Past Med/Surg History Medical History Alcohol abuse Anxiety Atrial fibrillation CKD (chronic kidney disease), stage III COPD (chronic obstructive pulmonary disease) DM2 (diabetes mellitus, type 2) Fracture dislocation of right ankle GERD (gastroesophageal reflux disease) HLD (hyperlipidemia) HTN (hypertension) Left ventricular dysfunction Surgical History History of ankle surgery History of cardiac cath 2009-nonocclussive CAD Family History Brother Cancer pancreatic cancer Mother Diabetes Sister Diabetes Father Heart disease Social History Smoking Status: Former smoker Tobacco Type: Cigarettes Second Hand Exposure: No; Do You Dip or Chew Tobacco: No; Hx Alcohol Use: Yes Alcohol type: beer Hx Substance Use: No Preferred Language: Mohawk Communication Ability: Effective House Worker Required: No Beliefs That Will Affect Care: None marital status: Unknown Current Living Situation: Alone How many Children do You have: 2 Other Information That Helps Us Care for You: No Feels Safe at Home: Yes Safety Concerns: Feels Safe At This Time Assistive Devices: Cane and Glasses Review of Systems Review of Systems: As per HPI, all 10 systems reviewed, all other ROS negative Physical Exam Physical Exam: GENERAL: Slightly hard of hearing, no respiratory distress SKIN: Normal color, warm HEENT: Yancey palpebral conjunctivae, no ptosis, dry buccal mucosa NECK : Supple, no tenderness CHEST : Decreased breath sounds, no tenderness HEART : Irregular, apical systolic murmur ABDOMEN: Some distention, nontender EXTREMITIES : Minimal LE swelling, no LE tenderness, no other conspicuous deformities noted NEUROLOGIC : Coherent, no facial asymmetry, slightly hard of hearing, no other gross focality Results & Data Results & Data ([facility]) Vital Signs (Past 12 Hours) Vital Signs Temp Pulse Pulse Resp BP BP Pulse Ox 08/22/21 22:49 97 H 20 138/95 95 08/22/21 18:30 96 H 29 H 153/103 H 94 08/22/21 17:52 36.4 C L 95 H 16 138/84 97 Laboratory Results Laboratory Results WBC 8.41 K/uL (4.8-10.8) 08/22/21 18:08 RBC 4.50 M/uL (4.7-6.1) L 08/22/21 18:08 Hgb 14.2 g/dL (14.0-18.0) 08/22/21 18:08 Hct 41.9 % (42-52) L 08/22/21 18:08 MCV 93.1 fL (80-100) 08/22/21 18:08 MCH 31.6 pg (25-34) 08/22/21 18:08 MCHC 33.9 g/dL (32-36) 08/22/21 18:08 RDW Std Deviation 48.8 fL (36.4-46.3) H 08/22/21 18:08 RDW Coeff of Cole 14.5 % (11.5-14.5) 08/22/21 18:08 Plt Count 233 K/uL (130-400) 08/22/21 18:08 MPV 11.1 fL (7.4-10.4) H 08/22/21 18:08 Immature Gran % (Auto) 0.2 % 08/22/21 18:08 Neut % (Auto) 60.9 % 08/22/21 18:08 Lymph % (Auto) 25.7 % 08/22/21 18:08 [place] % (Auto) 10.8 % 08/22/21 18:08 Eos % (Auto) 1.8 % 08/22/21 18:08 Baso % (Auto) 0.6 % 08/22/21 18:08 Neut # (Auto) 5.12 K/uL (1.4-6.5) 08/22/21 18:08 Lymph # (Auto) 2.16 K/uL (1.2-3.4) 08/22/21 18:08 [place] # (Auto) 0.91 K/uL (0.11-0.59) H 08/22/21 18:08 Eos # (Auto) 0.15 K/uL (0-0.5) 08/22/21 18:08 Baso # (Auto) 0.05 K/uL (0-0.2) 08/22/21 18:08 Immature Gran # (Auto) 0.02 K/uL (0.00-0.02) 08/22/21 18:08 PT 12.3 Seconds (9.0-12.0) H 08/22/21 18:08 INR 1.2 (0.9-1.1) H 08/22/21 18:08 Sodium 129 mmol/L (136-145) L 08/22/21 18:08 Potassium 3.3 mmol/L (3.5-5.1) L 08/22/21 18:08 Chloride 91 mmol/L (98-107) L 08/22/21 18:08 Carbon Dioxide 26 mmol/L (21-32) 08/22/21 18:08 Anion Gap 12 (3-11) H 08/22/21 18:08 BUN 14 mg/dl (6-23) 08/22/21 18:08 Creatinine 1.08 mg/dl (0.6-1.4) 08/22/21 18:08 Est Cr Clr Drug Dosing 69.5 ml/min 08/22/21 18:08 Est GFR ( Amer) 80.2 ml/min 08/22/21 18:08 Est GFR (Non-Af Amer) 69.2 ml/min 08/22/21 18:08 BUN/Creatinine Ratio 13.0 (10-20) 08/22/21 18:08 Glucose 189 mg/dl (70-99(Fasting)) H 08/22/21 18:08 Calcium 7.9 mg/dl (8.5-10.1) L 08/22/21 18:08 Phosphorus 3.3 mg/dl (2.5-4.9) 08/22/21 18:08 Magnesium 2.1 mg/dl (1.7-2.4) 08/22/21 18:08 Total Bilirubin 0.6 mg/dl (0.2-1.0) 08/22/21 18:08 Direct Bilirubin 0.1 mg/dl (0-0.2) 08/22/21 18:08 AST 55 U/L (13-39) H 08/22/21 18:08 ALT 64 U/L (7-52) H 08/22/21 18:08 Alkaline Phosphatase 156 U/L (34-104) H 08/22/21 18:08 Troponin I 0.07 ng/ml (0-0.04) H* 08/22/21 21:33 B-Natriuretic Peptide 2870 pg/ml (0-100) H 08/22/21 18:23 Total Protein 6.9 gm/dl (6.0-8.3) 08/22/21 18:08 Albumin 3.7 gm/dl (3.4-5.0) 08/22/21 18:08 Globulin 3.2 gm/dl (2.5-4.0) 08/22/21 18:08 Albumin/Globulin Ratio 1.2 (0.9-2) 08/22/21 18:08 Lipase 26 U/L (11-82) 08/22/21 18:08 TSH 9.589 uIu/ml (0.300-4.500) H 08/22/21 18:08 Free T4 0.87 ng/dl (0.61-1.60) 08/22/21 18:08 Urine Color Yellow 08/22/21 21: Urine Appearance Clear (Clear) 08/22/21 21: Urine pH 7.0 (4.5-7.5) 08/22/21 21: Ur Specific Badger 1.011 (1.000-1.030) 08/22/21 21: Urine Protein Trace (Negative) H 08/22/21 21: Urine Glucose (UA) Negative (Negative) 08/22/21 21: Urine Ketones Negative (Negative) 08/22/21 21: Urine Blood Negative (Negative) 08/22/21 21: Urine Nitrite Negative (Negative) 08/22/21 21: Urine Bilirubin Negative (Negative) 08/22/21 21: Urine Urobilinogen Negative (Negative) 08/22/21 21: Ur Leukocyte Esterase Negative (Negative) 08/22/21 21:27 Urine WBC (Auto) 0 /hpf (0-5) 08/22/21 21: Urine RBC (Auto) 0-4 /hpf (0-4) 08/22/21 21: U Hyaline Cast (Auto) 0 /lpf (0-5) 08/22/21 21: U Epithel Cells (Auto) 0-5 /lpf (0-5) 08/22/21 21: Urine Bacteria (Auto) Negative (Negative) 08/22/21 21:27 Ethyl Alcohol mg/dL 12.6 mg/dl (<10.0) H 08/22/21 18:23 SARS-CoV-2, RNA, NAAT NEGATIVE (NEGATIVE) 08/22/21 18:51 Impressions Chest X-Ray 08/22/21 17:57 XR chest 1V portable HISTORY: Atypical Chest Pain COMPARISON: Chest 11/27/2020 FINDINGS: No pneumothorax. There are trace bilateral pleural effusions. The cardiac silhouette remains mildly enlarged. Patchy bibasilar densities are similar to the prior study. The upper lung zones are clear. There is mild central pulmonary vascular congestion without overt edema. IMPRESSION: 1. Cardiomegaly with mild central pulmonary vascular congestion without overt edema. 2. Trace bilateral pleural effusions. 3. Patchy bibasilar densities persist. This may represent atelectasis or pneumonia. ACT 112: Negative or not required by law. Electronically signed by: Duc Reich M.D. 08/22/2021 6:42 PM Abdomen/Pelvis CT 08/22/21 18:45 CT OF THE ABDOMEN AND PELVIS WITH CONTRAST CLINICAL HISTORY: Abdominal pain. Fluid retention. COMPARISON STUDY: CT of the abdomen and pelvis November 25, 2020. TECHNIQUE: Following IV administration of 94 mL of Optiray, axial images of the abdomen and pelvis were obtained from the lung bases to the proximal femurs. Images were reviewed in the axial, sagittal, and coronal planes. IV contrast was administered without complication. Automated exposure control was utilized for the study. A dose lowering technique was utilized adhering to the principles of ALARA. CT DOSE: 697.49 mGy.cm FINDINGS: Within visualized portions of the lower chest, note is made of cardiomegaly, small bilateral pleural effusions and interlobular septal thickening consistent with pulmonary edema. No pneumatosis, free air or portal venous gas is present. Small amount of abdominal and pelvic ascites is noted. No fluid collection is suggest an abscess. Body wall edema is present. Presacral edema is present. Moderate gallbladder wall thickening is noted. The spleen, adrenal glands, kidneys and pancreas are unremarkable with exception of multiple small wedge-shaped hypodensities within the left kidney which favor scarring or small old infarcts. No biliary or pancreatic ductal dilatation is present. There is no hydronephrosis. There is no evidence for a bowel obstruction. The caliber and wall thickness of small and large bowel are normal. Appendix is normal. No abdominal or pelvic lymphadenopathy is noted. Bladder wall thickening is similar to prior CT. Extensive atherosclerotic plaque within the abdominal aorta and branch vessels is noted. Evaluation for stenoses is difficult given extensive calcified plaque on this non-CTA exam. IMPRESSION: 1. No bowel obstruction. No bowel wall thickening. Normal appendix. 2. Evidence for volume overload with interstitial pulmonary edema, small bilateral pleural effusions, body wall edema and a small amount of abdominal and pelvic ascites. Gallbladder wall thickening is likely due to volume overload as well. 3. Mildly distended bladder. Bladder wall thickening, likely chronic. 4. Multiple small wedge-shaped hypodensities within the left kidney. Although age indeterminate, these are probably not acute given volume loss and favor scarring or old small infarcts. ACT 112: Negative or not required by law. Electronically signed by: Ameya Henriquez M.D. 08/22/2021 7:44 PM Diagnostic Findings EKG as per my interpretation rate 105, A. fib, RBBB PVCs Code Status & VTE Plan VTE Prophylaxis Plan VTE Prophylaxis will be ordered: Yes
[2021-08-23] MEDS ORDERED: ACETAMINOPHEN 325 MG TAB PO PRN (00:04)
[2021-08-23] MEDS ORDERED: GLUCOSE 40% GEL 15 GM TUBE PO PRN (00:04)
[2021-08-23] MEDS ORDERED: CARBOHYDRATES FOR HYPOGLYCEMIA PO PRN (00:04)
[2021-08-23] MEDS ORDERED: traMADol HCL 50 MG TABLET PO PRN (00:04)
[2021-08-23] MEDS ORDERED: XOPENEX/ATROVENT 1.25mg/0.5MG NEB COMBO NEB PRN (00:04)
[2021-08-23] MEDS ORDERED: GLUCAGON FOR INJ 1 MG VIAL SQ PRN (00:04)
[2021-08-23] MEDS ORDERED: DEXTROSE 50% 50 ML SYRINGE IV PRN (00:04)
[2021-08-23] MEDS ORDERED: PROMETHAZINE HCL 12.5 MG in SODIUM CHLORIDE 0.9% 50 ML IV PRN (00:04)
[2021-08-23] MEDS ORDERED: GLUCOSE 10 TABS/TUBE PO PRN (00:04)
[2021-08-23] MEDS ORDERED: BISMUTH SUBSALICYLATE SUSP PO PRN (00:04)
[2021-08-23] MEDS ORDERED: NITROGLYCERIN SL 0.4 MG/TAB TAB SL PRN (00:04)
[2021-08-23] MEDS: INSULIN ASPART PER UNIT SC SCH ×5 (00:18→20:54)
[2021-08-23] MEDS: LEVALBUTEROL 1.25MG/0.5ML NEB INH PRN (01:17)
[2021-08-23] MEDS: IPRATROPIUM BROMIDE NEB SOLN 0.02% 2.5 ML VIAL INH PRN (01:17)
[2021-08-23] MEDS ORDERED: LORazepam 2 MG/1 ML VIAL IV PRN (03:37)
[2021-08-23] MEDS ORDERED: THIAMINE HCL 100 MG in SYRINGE 9 ML IV ONE (04:00)
[2021-08-23 05:38] LABS: Basophils # (auto) 0.04 K/uL (0-0.2); Basophils % (auto) 0.5 %; Eosinophils # (auto) 0.05 K/uL (0-0.5); Eosinophils % (auto) 0.7 %; Hematocrit (blood only) 40.9 % (42-52); Immature Granulocytes # (auto) 0.02 K/uL (0.00-0.02); Immature Granulocytes % (auto) 0.3 %; Lymphocytes # (auto) 1.99 K/uL (1.2-3.4); Lymphocytes % (auto) 27.2 %; Mean Corpuscular Hgb Conc 34.2 g/dL (32-36); Mean Corpuscular Volume 93.4 fL (80-100); Mean Platelet Volume 10.7 fL (7.4-10.4); Monocytes # (auto) 0.92 K/uL (0.11-0.59); Monocytes % (auto) 12.6 %; Neutrophils % (auto) 58.7 %; Platelet Count 227 K/uL (130-400); RDW Coefficient of Variation 14.5 % (11.5-14.5); RDW Standard Deviation 49.2 fL (36.4-46.3); Red Blood Count 4.38 M/uL (4.7-6.1); White Blood Count 7.32 K/uL (4.8-10.8)
[2021-08-23 06:30] LABS: BUN Creatinine Ratio 13.5 (10-20); Calcium 8.7 mg/dl (8.5-10.1); Est GFR (African American) 83.9 ml/min; Est GFR (Non-African American) 72.4 ml/min; Potassium 4.3 mmol/L (3.5-5.1)
[2021-08-23] MEDS: DOXYCYCLINE HYCLATE 100 MG CAP PO SCH ×2 (07:43→20:12)
[2021-08-23] MEDS: POTASSIUM CHLORIDE CRTAB 20 MEQ TABCR PO SCH ×2 (07:43→20:17)
[2021-08-23] MEDS: DOCUSATE SODIUM 100 MG CAP PO SCH (07:43)
[2021-08-23] MEDS: MULTIVITAMIN TAB PO SCH (07:43)
[2021-08-23] MEDS: lisinopril 5 MG TAB PO SCH (07:43)
[2021-08-23] MEDS: METOPROLOL SUCC 50MG EXT REL TAB PO SCH (07:43)
[2021-08-23] MEDS: ATORVASTATIN 40 MG TAB PO SCH (07:43)
[2021-08-23] MEDS: FOLIC ACID 1 MG TAB PO SCH (07:43)
[2021-08-23] MEDS: FUROSEMIDE 40 MG/4 ML VIAL IV SCH ×2 (07:44→17:31)
[2021-08-23] MEDS: FLUTICASONE/VILANTEROL 100/25MCG 14 PUFFS/INHALER INH SCH (07:44)
[2021-08-23] MEDS: APIXABAN 5 MG TABLET PO SCH ×2 (07:44→20:12)
[2021-08-23 07:54] LABS: Estimated Average Glucose 192 mg/dl; Hemoglobin A1C 8.3 % (4.5-5.6)
[2021-08-23] MEDS ORDERED: SPIRONOLACTONE 12.5 MG TAB PO SCH (09:00)
[2021-08-23] MEDS ORDERED: FLUTICASONE/SALMETEROL 250/50 (ADVAIR) 14 PUFF/1 INHALER INH SCH (09:00)
--- NOTE | 2021-08-23 09:47 | Electrocardiogram Report ---
Test Reason : Blood Pressure : / mmHG Vent. Rate : 106 BPM Atrial Rate : 090 BPM P-R Int : 000 ms QRS Dur : 108 ms QT Int : 326 ms P-R-T Axes : 000 247 093 degrees QTc Int : 433 ms Poor data quality, interpretation may be adversely affected Atrial fibrillation with premature ventricular or aberrantly conducted complexes Possible Anterolateral infarct (cited on or before 22-AUG-2021) Abnormal ECG When compared with ECG of 25-NOV-2020 15:50, Questionable change in initial forces of Anteroseptal leads Confirmed by Cedric Child ([id number]) on 08/23/2021 9:46:42 AM Referred By: REFERRED SELF Confirmed By:Cedric Child
--- NOTE | 2021-08-23 09:48 | Electrocardiogram Report ---
Test Reason : Blood Pressure : / mmHG Vent. Rate : 102 BPM Atrial Rate : 053 BPM P-R Int : 000 ms QRS Dur : 102 ms QT Int : 358 ms P-R-T Axes : 000 119 185 degrees QTc Int : 466 ms Poor data quality, interpretation may be adversely affected Atrial fibrillation with premature ventricular or aberrantly conducted complexes Right axis deviation Anterior infarct (cited on or before 22-AUG-2021) Abnormal ECG When compared with ECG of 22-AUG-2021 18:01, (unconfirmed) No significant change Confirmed by Cedric Child ([id number]) on 08/23/2021 9:48:33 AM Referred By: REFERRED SELF Confirmed By:Cedric Child
--- NOTE | 2021-08-23 09:50 | Cardiology Consultation ---
Date of Consultation August 23, 2021 Assessment & Plan (1) Increasing shortness of breath: (2) COPD (chronic obstructive pulmonary disease): (3) Hypervolemia: (4) Elevated troponin: (5) NICM (nonischemic cardiomyopathy): (6) Alcohol abuse: (7) History of left heart catheterization (LHC): (8) Alcohol abuse: (9) Noncompliance: (10) Atrial fibrillation: acute decompensated LV systolic function with significant volume overload already on GDMT but hx of noncompliance. Pt states that he's been compliant with meds over 1L negative since admission continue with BID lasix cont eliquis, metoprolol, lisinopril and spironolactone (will increase to 25mg daily) strict I/O's, daily weights on the same standing scale follow and replete lytes History of Present Illness Reason for Consultation: acute decompensated systolic heart failure Requesting Physician: Dr. Kapoor Attending Physician: Tiffany Yun, History of Present Illness The patient is a 71-year-old male who Historically followed with Dr. Nguyen of our cardiology practice. He presented to [facility] emergency department on 08/22/2021 with complaints of lower extremity edema and shortness of breath. Most recently he was seen by Jose Luis Bonilla of our practice approximately 1 month ago with signs and symptoms of volume overload. He was appropriately placed on diuretics at that time. Patient notes that approximately 2 weeks ago he developed a productive cough. At the same time he started noticing increasing lower extremity edema and orthopnea. Patient does have a history of medication noncompliance, he states he has been compliant with his medications at this time. Upon arrival he was found to be significantly volume overloaded and started on diuresis, he was already 1 L negative since admission. Allergies Allergy/AdvReac Type Severity Reaction Status Date / Time No Known Allergies Allergy Verified 08/22/21 19:06 Home Medications Medication Instructions Recorded Confirmed Type apixaban 5 mg tablet (Eliquis) 5 mg PO BID 11/25/20 08/22/21 History atorvastatin 40 mg tablet 40 mg PO DAILY 11/25/20 08/22/21 History lisinopril 5 mg tablet 5 mg PO DAILY 11/25/20 08/22/21 History metformin 500 mg tablet,extended 500 mg PO BID 11/25/20 08/22/21 History release 24 hr acetaminophen 500 mg tablet 1,000 mg PO Q6H PRN 08/22/21 08/22/21 History (Tylenol Extra Strength) albuterol sulfate 2.5 mg INHALATION Q4H PRN 08/22/21 08/22/21 History albuterol sulfate 90 mcg/actuation 2 puff INHALATION Q4H PRN 08/22/21 08/22/21 History aerosol inhaler aluminum-mag hydroxide-simethicone 15 ml PO Q6H PRN 08/22/21 08/22/21 History 200 mg-200 mg-20 mg/5 mL oral susp bismuth subsalicylate 525 mg/15 mL 525 mg PO QID PRN 08/22/21 08/22/21 History oral suspension docusate sodium 100 mg capsule 100 mg PO DAILY 08/22/21 08/22/21 History fluticasone 250 mcg-salmeterol 50 1 inh INHALATION BID 08/22/21 08/22/21 History mcg/dose blistr powdr for inhalation (Advair Diskus) furosemide 20 mg tablet 20 mg PO DAILY 08/22/21 08/22/21 History glipizide 10 mg tablet, extended 10 mg PO DAILY 08/22/21 08/22/21 History release 24 hr metoprolol succinate 100 mg 100 mg PO DAILY 08/22/21 08/22/21 History tablet,extended release 24 hr spironolactone 25 mg tablet 12.5 mg PO 3XWK 08/22/21 08/22/21 History Patient History Medical History Alcohol abuse Anxiety Atrial fibrillation CKD (chronic kidney disease), stage III COPD (chronic obstructive pulmonary disease) DM2 (diabetes mellitus, type 2) Fracture dislocation of right ankle GERD (gastroesophageal reflux disease) HLD (hyperlipidemia) HTN (hypertension) Left ventricular dysfunction Surgical History History of ankle surgery History of cardiac cath 2009-nonocclussive CAD Family History Brother Cancer pancreatic cancer Mother Diabetes Sister Diabetes Father Heart disease Social History Smoking Status: Former smoker Tobacco Type: Cigarettes Second Hand Exposure: No; Do You Dip or Chew Tobacco: No; Hx Alcohol Use: Yes Alcohol type: beer Hx Substance Use: No Preferred Language: Gabonese Communication Ability: Effective Safety Deposit Supervisor Required: No Beliefs That Will Affect Care: None marital status: Unknown Current Living Situation: Alone How many Children do You have: 4 Other Information That Helps Us Care for You: No Feels Safe at Home: Yes Safety Concerns: Feels Safe At This Time Assistive Devices: None Review of Systems Review of Systems: All systems reviewed & are unremarkable except as noted in HPI & below Physical Exam Physical Exam: General: Awake, alert and oriented x 3. No acute distress. HEENT: Normocephalic, atraumatic. Pupils equal, round and reactive to light and accommodation. Extraocular muscles are intact. Anicteric sclera. Moist mucous membranes. Neck: No JVD. No bruit. Cardiovascular: irregularly irregular, unable to appreciate murmur, rub or gallop. Pulmonary: Clear to auscultation bilaterally. No rales, rhonchi, or wheezing. Abdomen: Bowel sounds x 4, soft. No rebound, guarding or tenderness. No organomegaly. Extremities: No clubbing, cyanosis or edema. +2 pedal pulses bilaterally. Skin: Warm and dry. Results & Data ([facility]) Vital Signs (Past 12 Hours) Vital Signs Temp Pulse Pulse Pulse Resp BP BP 08/23/21 07:30 37 C 97 H 20 142/88 H 08/23/21 04:09 36.6 C 91 H 17 118/87 08/23/21 01:18 69 18 08/22/21 23:46 101 H 08/22/21 23:35 36.6 C 89 19 140/95 08/22/21 23:26 95 H 18 145/98 H 08/22/21 22:49 97 H 20 138/95 Pulse Ox 08/23/21 07:30 98 08/23/21 04:09 93 08/23/21 01:18 97 08/22/21 23:46 08/22/21 23:35 96 08/22/21 23:26 94 08/22/21 22:49 95 (1) Atrial fibrillation Atrial fibrillation type: permanent Qualified Code(s): I48.21 - Permanent atrial fibrillation (2) COPD (chronic obstructive pulmonary disease) COPD type: unspecified COPD Qualified Code(s): J44.9 - Chronic obstructive pulmonary disease, unspecified (3) Hypervolemia Hypervolemia type: unspecified Qualified Code(s): E87.70 - Fluid overload, unspecified
[2021-08-23] MEDS ORDERED: SPIRONOLACTONE 12.5 MG TAB PO ONE (10:00)
--- NOTE | 2021-08-23 14:23 | Hospitalist Progress Note ---
Date of Service August 23, 2021 Assessment & Plan (1) Acute systolic heart failure: Plan: Acute systolic heart failure, EF 20% on echo. Cont lasix BID, monitor lytes and replace as needed. Cont low Na diet and daily weights. (2) COPD (chronic obstructive pulmonary disease): Plan: chronic, stable, no wheezing. Cont current therapy. (3) Atrial fibrillation: Plan: Chronic, rate controlled and cont anticoagulation with apixaban. (4) Alcohol abuse: Plan: High risk for withdrawal. Ativan PRN (5) DM2 (diabetes mellitus, type 2): Plan: Chronic, at goal. Cont current medical therapy. (6) DVT prophylaxis: Plan: apixaban Full Dispo-uncertain at this time. Admission and Anticipated Discharge Date Admission Date: August 22, 2021 Subjective heavy drinker poor historian with very poor insight into current issues Reports he has had fluid in his lower extremities for the last year Reports coming to the ER yesterday after 2 weeks of severe and worsening stomach pain with vomiting. Denies any hematemesis and reports vomiting has resolved and he is tolerating p.o. at this point Reports an overall decline in functional ability. States he used to be able to "walk up the hill without issue 6 months ago" now he does not walk his dog and cannot walk very far at all without getting short of breath. Review of Systems Review of Systems: All systems were reviewed and negative except as indicated above. Physical Exam Physical Exam: CONSTITUTIONAL: WNWD, vitals as above, generally NAD EYES: normal conjunctivae, no scleral icterus ENT: external ear and nose normal, MMM NECK: trachea midline RESPIRATORY: clear to auscultation bilaterally, no crackles, rales or wheezes, normal respiratory effort CARDIOVASCULAR: regular rate and rhythm, S1 and 2 heard without murmurs, gallops or rubs, no JVD, trace peripheral edema. CHEST: inspection of chest was normal GASTROINTESTINAL: soft, nontender, ND, no guarding. MUSCULOSKELETAL: strength 5/5 throughout, head is normocephalic and atraumatic SKIN: warm and dry NEUROLOGIC: CN 2-12 grossly intact, no sensory deficit, normal cognition, normal speech, no tremor PSYCHIATRIC: alert cooperative and oriented to person, place and time. Results & Data Results & Data ([facility]) Vital Signs (Past 12 Hours) Vital Signs Temp Pulse Pulse Resp BP Pulse Ox 08/23/21 11:30 37.1 C 88 18 128/88 95 08/23/21 07:30 37 C 97 H 20 142/88 H 98 08/23/21 04:09 36.6 C 91 H 17 118/87 93 (1) COPD (chronic obstructive pulmonary disease) COPD type: unspecified COPD Qualified Code(s): J44.9 - Chronic obstructive pulmonary disease, unspecified (2) Atrial fibrillation Atrial fibrillation type: permanent Qualified Code(s): I48.21 - Permanent atrial fibrillation
[2021-08-23] MEDS: INSULIN GLARGINE SOLOSTAR 100 UNITS/ML 3 ML PEN SC SCH (21:05)
[2021-08-24 07:41] LABS: BUN Creatinine Ratio 18.1 (10-20); Calcium 8.5 mg/dl (8.5-10.1); Creatinine Clr Calc Pharmacy 50.7 ml/min; Est GFR (African American) 56.6 ml/min; Est GFR (Non-African American) 48.9 ml/min; Potassium 4.3 mmol/L (3.5-5.1)
[2021-08-24] MEDS: DOXYCYCLINE HYCLATE 100 MG CAP PO SCH ×2 (08:05→20:48)
[2021-08-24] MEDS: DOCUSATE SODIUM 100 MG CAP PO SCH (08:05)
[2021-08-24] MEDS: lisinopril 5 MG TAB PO SCH (08:05)
[2021-08-24] MEDS: METOPROLOL SUCC 50MG EXT REL TAB PO SCH (08:05)
[2021-08-24] MEDS: MULTIVITAMIN TAB PO SCH (08:05)
[2021-08-24] MEDS: THIAMINE HCL 100 MG TAB PO SCH (08:05)
[2021-08-24] MEDS: ATORVASTATIN 40 MG TAB PO SCH (08:05)
[2021-08-24] MEDS: SPIRONOLACTONE 25 MG TAB PO SCH (08:05)
[2021-08-24] MEDS: FOLIC ACID 1 MG TAB PO SCH (08:05)
[2021-08-24] MEDS: POTASSIUM CHLORIDE CRTAB 20 MEQ TABCR PO SCH ×2 (08:05→20:46)
[2021-08-24] MEDS: APIXABAN 5 MG TABLET PO SCH ×2 (08:05→20:47)
[2021-08-24] MEDS: FLUTICASONE/VILANTEROL 100/25MCG 14 PUFFS/INHALER INH SCH (08:05)
[2021-08-24] MEDS: INSULIN ASPART PER UNIT SC SCH ×4 (08:09→20:49)
--- NOTE | 2021-08-24 08:56 | Cardiology Progress Note ---
Date of Service August 24, 2021 Assessment & Plan (1) Increasing shortness of breath: (2) COPD (chronic obstructive pulmonary disease): (3) Hypervolemia: (4) Elevated troponin: (5) NICM (nonischemic cardiomyopathy): (6) Alcohol abuse: (7) History of left heart catheterization (LHC): (8) Noncompliance: (9) Atrial fibrillation: Plan: acute decompensated LV systolic function with significant volume overload already on GDMT but hx of noncompliance. Pt states that he's been compliant with meds over 3L negative since admission continue with BID lasix cont eliquis, metoprolol, lisinopril and spironolactone (will increase to 25mg daily) strict I/O's, daily weights on the same standing scale follow and replete lytes echo showed significant reduction of LV and RV systolic function along with pulmonary hypertension and moderate secondary mitral regurgitation. again, already on appropriate medical therapy as an outpatient except for ISAIAS/ARB (stopped in 01/13 due to renal impairment) most recent ischemic eval 01/13 with nonischemic nuclear stress will need to rule out ischemia again with worsening BiV failure will likely require BiV icd for resynchonization no roll for Entresto given presence of permanent afib would benefit from addition of Jardiance (SGLT2) and discontinuation of glipizide Admission and Anticipated Discharge Date Admission Date: August 22, 2021 Review of Systems Review of Systems: All systems reviewed & are unremarkable except as noted in HPI & below Physical Exam Physical Exam: General: Awake, alert and oriented x 3. No acute distress. HEENT: Normocephalic, atraumatic. Pupils equal, round and reactive to light and accommodation. Extraocular muscles are intact. Anicteric sclera. Moist mucous membranes. Neck: No JVD. No bruit. Cardiovascular: irregularly irregular, unable to appreciate murmur, rub or gallop. Pulmonary: Clear to auscultation bilaterally. No rales, rhonchi, or wheezing. Abdomen: Bowel sounds x 4, soft. No rebound, guarding or tenderness. No org anomegaly. Extremities: No clubbing, cyanosis or edema. +2 pedal pulses bilaterally. Skin: Warm and dry. Results & Data ([facility]) Vital Signs (Past 12 Hours) Vital Signs Temp Pulse Pulse Resp BP Pulse Ox 08/24/21 07:39 36.4 C L 77 18 128/82 94 08/24/21 03:42 36.6 C 90 18 128/91 95 08/23/21 23:25 89 08/23/21 23:21 36.4 C L 92 H 16 127/86 94 (1) COPD (chronic obstructive pulmonary disease) COPD type: unspecified COPD Qualified Code(s): J44.9 - Chronic obstructive pulmonary disease, unspecified (2) Hypervolemia Hypervolemia type: unspecified Qualified Code(s): E87.70 - Fluid overload, unspecified (3) Atrial fibrillation Atrial fibrillation type: permanent Qualified Code(s): I48.21 - Permanent atrial fibrillation
[2021-08-24] MEDS ORDERED: ALBUT/IPRATROP 3MG/0.5MG NEB 3 ML VIAL NEB STA (13:03)
--- NOTE | 2021-08-24 17:35 | Hospitalist Progress Note ---
Date of Service August 24, 2021 Assessment & Plan (1) Acute systolic heart failure: Plan: Acute systolic heart failure, EF 20% on echo. Hold Lasix with rise in creatinine. 3L off overnight. Monitor lytes and replace as needed. Cont low Na diet and daily weights. Cont plan per cardiology (2) COPD (chronic obstructive pulmonary disease): Plan: chronic, stable, no wheezing. Cont current therapy. (3) Atrial fibrillation: Plan: Chronic, rate controlled and cont anticoagulation with apixaban. (4) Alcohol abuse: Plan: High risk for withdrawal. Ativan PRN (5) DM2 (diabetes mellitus, type 2): Plan: Chronic, at goal. Cont current medical therapy. (6) DVT prophylaxis: Plan: apixaban Full Dispo-uncertain at this time. [facility] and Anticipated Discharge Date Admission Date: August 22, 2021 Subjective heavy drinker poor historian with very poor insight into current issues Reports he has had fluid in his lower extremities for the last year Reports coming to the ER yesterday after 2 weeks of severe and worsening stomach pain with vomiting. Denies any hematemesis and reports vomiting has resolved and he is tolerating p.o. at this point Reports an overall decline in functional ability. States he used to be able to "walk up the hill without issue 6 months ago" now he does not walk his dog and cannot walk very far at all without getting short of breath. Review of Systems Review of Systems: All systems were reviewed and negative except as indicated above. Physical Exam Physical Exam: CONSTITUTIONAL: WNWD, vitals as above, generally NAD EYES: normal conjunctivae, no scleral icterus ENT: external ear and nose normal, MMM NECK: trachea midline RESPIRATORY: clear to auscultation bilaterally, no crackles, rales or wheezes, normal respiratory effort CARDIOVASCULAR: regular rate and rhythm, S1 and 2 heard without murmurs, gallops or rubs, no JVD, trace peripheral edema. CHEST: inspection of chest was normal GASTROINTESTINAL: soft, nontender, ND, no guarding. MUSCULOSKELETAL: strength 5/5 throughout, head is normocephalic and atraumatic SKIN: warm and dry NEUROLOGIC: CN 2-12 grossly intact, no sensory deficit, normal cognition, normal speech, no tremor PSYCHIATRIC: alert cooperative and oriented to person, place and time. Results & Data Results & Data ([facility]) Vital Signs (Past 12 Hours) Vital Signs Temp Pulse Resp BP Pulse Ox 08/24/21 16:32 36.4 C L 90 18 133/86 97 08/24/21 12:16 36.5 C 84 18 126/82 98 08/24/21 07:39 36.4 C L 77 18 128/82 94 Laboratory Results BMP 08/24/21 06:14 Sodium 133 L Potassium 4.3 Chloride 96 L Carbon Dioxide 30 BUN 26 H Creatinine 1.44 H D Glucose 102 H Calcium 8.5 Medications Administered Current Inpatient Medications Acetaminophen (Acetaminophen 325 Mg Tab) 650 mg PO Q4H PRN PRN Reason: Pain or Fever Stop: 09/22/21 00:03 Apixaban (Apixaban 5 Mg Tablet) 5 mg PO BID [facility] Stop: 09/22/21 08:59 Last Admin: 08/24/21 08:05 Dose: 5 mg Documented by: Atorvastatin Calcium (Atorvastatin 40 Mg Tab) 40 mg PO DAILY [facility] Stop: 09/22/21 08:59 Last Admin: 08/24/21 08:05 Dose: 40 mg Documented by: Bismuth Subsalicylate (Bismuth Subsalicylate Susp) 30 ml PO QID PRN PRN Reason: upset stomach Stop: 09/22/21 00:03 Dextrose (Dextrose 50% 50 Ml Syringe) 25 - 50 ml IV UD PRN; Protocol PRN Reason: Hypoglycemia Protocol Stop: 09/22/21 00:03 Docusate Sodium (Docusate Sodium 100 Mg Cap) 100 mg PO DAILY [facility] Stop: 09/22/21 08:59 Last Admin: 08/24/21 08:05 Dose: 100 mg Documented by: Doxycycline Hyclate (Doxycycline Hyclate 100 Mg Cap) 100 mg PO BID [facility] Stop: 08/30/21 08:59 Last Admin: 08/24/21 08:05 Dose: 100 mg Documented by: Fluticasone/Vilanterol (Fluticasone/Vilanterol 100/25mcg 14 Puffs/Inhaler) 1 puffs INH DAILY [facility] Stop: 09/22/21 08:59 Last Admin: 08/24/21 08:05 Dose: 1 puffs Documented by: Folic Acid (Folic Acid 1 Mg Tab) 1 mg PO QAM [facility] Stop: 09/22/21 08:59 Last Admin: 08/24/21 08:05 Dose: 1 mg Documented by: Glucagon (Glucagon For Inj 1 Mg Vial) 1 mg SQ UD PRN; Protocol PRN Reason: Hypoglycemia Protocol Stop: 09/22/21 00:03 Glucose (Glucose 10 Tabs/Tube) 4 - 8 tabs PO UD PRN; Protocol PRN Reason: Hypoglycemia Protocol Stop: 09/22/21 00:03 Glucose (Glucose 40% Gel 15 Gm Tube) 15 - 30 gm PO UD PRN; Protocol PRN Reason: Hypoglycemia Protocol Stop: 09/22/21 00:03 Promethazine HCl 12.5 mg/ (Sodium Chloride) 50.5 mls @ 202 mls/hr IV Q6H PRN PRN Reason: Nausea And Vomiting Stop: 09/22/21 00:03 Insulin Aspart (Insulin Aspart Per Unit) 0 units SC ACHS [facility] Stop: 09/22/21 00:03 Last Admin: 08/24/21 16:55 Dose: Not Given Documented by: Insulin Glargine (Insulin Glargine Solostar 100 Units/Ml 3 Ml Pen) 10 units SC HS [facility] Stop: 09/22/21 20:59 Last Admin: 08/23/21 21:05 Dose: 10 units Documented by: Ipratropium [place] (Ipratropium [place] Neb Soln 0.02% 2.5 Ml Vial) 0.5 mg INH Q4H PRN PRN Reason: SOB or wheezing Stop: 09/22/21 00:03 Last Admin: 08/23/21 01:17 Dose: 0.5 mg Documented by: Levalbuterol HCl (Levalbuterol 1.25mg/0.5ml Neb) 1.25 mg INH Q4H PRN PRN Reason: SOB or wheezing Stop: 09/22/21 00:03 Last Admin: 08/23/21 01:17 Dose: 1.25 mg Documented by: Lisinopril (Lisinopril 5 Mg Tab) 5 mg PO DAILY [facility] Stop: 09/22/21 08:59 Last Admin: 08/24/21 08:05 Dose: 5 mg Documented by: Lorazepam (Lorazepam 2 Mg/1 Ml Vial) 0.5 mg IV Q4H PRN PRN Reason: Anxiety Stop: 09/22/21 03:36 Metoprolol Succinate (Metoprolol Succ 50mg Ext Rel Tab) 100 mg PO DAILY [facility] Stop: 09/22/21 08:59 Last Admin: 08/24/21 08:05 Dose: 100 mg Documented by: Miscellaneous (Carbohydrates For Hypoglycemia ) 15 - 30 gm PO UD PRN PRN Reason: Hypoglycemia Protocol Stop: 09/22/21 00:03 Multivitamins (Multivitamin Tab) 1 tab PO QAM [facility] Stop: 09/22/21 08:59 Last Admin: 08/24/21 08:05 Dose: 1 tab Documented by: Nitroglycerin (Nitroglycerin Sl 0.4 Mg/Tab Tab) 0.4 mg SL Q5M PRN PRN Reason: Chest Pain Stop: 09/22/21 00:03 Potassium Chloride (Potassium Chloride Crtab 20 Meq Tabcr) 20 meq PO BID [facility] Stop: 09/22/21 08:59 Last Admin: 08/24/21 08:05 Dose: 20 meq Documented by: Spironolactone (Spironolactone 25 Mg Tab) 25 mg PO DAILY [facility] Stop: 09/23/21 08:59 Last Admin: 08/24/21 08:05 Dose: 25 mg Documented by: Thiamine HCl (Thiamine Hcl 100 Mg Tab) 100 mg PO QAM [facility] Stop: 09/23/21 08:59 Last Admin: 08/24/21 08:05 Dose: 100 mg Documented by: Tramadol HCl (Tramadol Hcl 50 Mg Tablet) 25 - 50 mg PO Q4H PRN PRN Reason: Pain Stop: 09/22/21 00:03 (1) Atrial fibrillation Atrial fibrillation type: permanent Qualified Code(s): I48.21 - Permanent atrial fibrillation (2) COPD (chronic obstructive pulmonary disease) COPD type: unspecified COPD Qualified Code(s): J44.9 - Chronic obstructive pulmonary disease, unspecified
[2021-08-24] MEDS: INSULIN GLARGINE SOLOSTAR 100 UNITS/ML 3 ML PEN SC SCH (20:48)
[2021-08-25 06:11] LABS: Hematocrit (blood only) 41.5 % (42-52); Hemoglobin 13.8 g/dL (14.0-18.0); Mean Corpuscular Hemoglobin 31.1 pg (25-34); Mean Corpuscular Hgb Conc 33.3 g/dL (32-36); Mean Corpuscular Volume 93.5 fL (80-100); Mean Platelet Volume 11.4 fL (7.4-10.4); Platelet Count 249 K/uL (130-400); RDW Coefficient of Variation 14.5 % (11.5-14.5); RDW Standard Deviation 49.6 fL (36.4-46.3); Red Blood Count 4.44 M/uL (4.7-6.1); White Blood Count 7.49 K/uL (4.8-10.8)
[2021-08-25 06:37] LABS: BUN Creatinine Ratio 21.1 (10-20); Calcium 9.3 mg/dl (8.5-10.1); Creatinine Clr Calc Pharmacy 49.8 ml/min; Est GFR (African American) 55.2 ml/min; Est GFR (Non-African American) 47.7 ml/min; Potassium 4.6 mmol/L (3.5-5.1)
[2021-08-25] MEDS: DOCUSATE SODIUM 100 MG CAP PO SCH (07:28)
[2021-08-25] MEDS: SPIRONOLACTONE 25 MG TAB PO SCH (07:28)
[2021-08-25] MEDS: POTASSIUM CHLORIDE CRTAB 20 MEQ TABCR PO SCH ×2 (07:28→19:18)
[2021-08-25] MEDS: APIXABAN 5 MG TABLET PO SCH ×2 (07:28→19:19)
[2021-08-25] MEDS: FOLIC ACID 1 MG TAB PO SCH (07:28)
[2021-08-25] MEDS: METOPROLOL SUCC 50MG EXT REL TAB PO SCH (07:29)
[2021-08-25] MEDS: MULTIVITAMIN TAB PO SCH (07:29)
[2021-08-25] MEDS: DOXYCYCLINE HYCLATE 100 MG CAP PO SCH ×2 (07:29→19:17)
[2021-08-25] MEDS: THIAMINE HCL 100 MG TAB PO SCH (07:29)
[2021-08-25] MEDS: ATORVASTATIN 40 MG TAB PO SCH (07:29)
[2021-08-25] MEDS: FLUTICASONE/VILANTEROL 100/25MCG 14 PUFFS/INHALER INH SCH (07:29)
[2021-08-25] MEDS: INSULIN ASPART PER UNIT SC SCH ×4 (08:11→19:31)
--- NOTE | 2021-08-25 09:48 | Cardiology Progress Note ---
Date of Service August 25, 2021 Assessment & Plan (1) Increasing shortness of breath: (2) COPD (chronic obstructive pulmonary disease): (3) Hypervolemia: (4) Elevated troponin: (5) NICM (nonischemic cardiomyopathy): (6) Alcohol abuse: (7) History of left heart catheterization (LHC): (8) Noncompliance: (9) Atrial fibrillation: Plan: acute decompensated LV systolic function with significant volume overload already on GDMT but hx of noncompliance. Pt states that he's been compliant with meds over 3L negative since admission, output starting to decline. We will give afternoon dose of IV Lasix and then will hold for the a.m., patient's volume status to be evaluated clinically at that time cont eliquis, metoprolol, lisinopril and spironolactone (will increase to 25mg daily) strict I/O's, daily weights on the same standing scale follow and replete lytes echo showed significant reduction of LV and RV systolic function along with pulmonary hypertension and moderate secondary mitral regurgitation. again, already on appropriate medical therapy as an outpatient except for ISAIAS/ARB (stopped in 01/13 due to renal impairment) most recent ischemic eval 01/13 with nonischemic nuclear stress will need to rule out ischemia again with worsening BiV failure will likely require BiV icd for resynchonization no roll for Entresto given presence of permanent afib would benefit from addition of Jardiance (SGLT2) and discontinuation of glipizide I reviewed the findings of his echocardiogram with him and recommended close follow-up as an outpatient and referral to electrophysiology for possible BiV ICD placement if his EF does not improve. We will also require Lexiscan nuclear stress test as an outpatient. My office will call to arrange upon discharge. Admission and Anticipated Discharge Date Admission Date: August 22, 2021 Subjective Patient seen and examined, chart reviewed. Seems more confused this morning from baseline. States that he feels well and denies chest pain, shortness of breath or palpitations. Telemetry reviewed: Atrial fibrillation. Review of Systems Review of Systems: All systems reviewed & are unremarkable except as noted in HPI & below Physical Exam Physical Exam: General: Awake, alert and oriented x 3. No acute distress. HEENT: Normocephalic, atraumatic. Pupils equal, round and reactive to light and accommodation. Extraocular muscles are intact. Anicteric sclera. Moist mucous membranes. Neck: No JVD. No bruit. Cardiovascular: irregularly irregular, unable to appreciate murmur, rub or gallop. Pulmonary: Clear to auscultation bilaterally. No rales, rhonchi, or wheezing. Abdomen: Bowel sounds x 4, soft. No rebound, guarding or tenderness. No organomegaly. Extremities: No clubbing, cyanosis or edema. +2 pedal pulses bilaterally. Skin: Warm and dry. Results & Data ([facility]) Vital Signs (Past 12 Hours) Vital Signs Temp Pulse Pulse Resp BP Pulse Ox 08/25/21 06:58 36.4 C L 83 19 141/97 H 96 08/25/21 03:09 36.7 C 67 17 131/88 95 08/24/21 23:30 90 08/24/21 23:20 36.4 C L 91 H 19 142/90 H 95 (1) COPD (chronic obstructive pulmonary disease) COPD type: unspecified COPD Qualified Code(s): J44.9 - Chronic obstructive pulmonary disease, unspecified (2) Hypervolemia Hypervolemia type: unspecified Qualified Code(s): E87.70 - Fluid overload, unspecified (3) Atrial fibrillation Atrial fibrillation type: permanent Qualified Code(s): I48.21 - Permanent atrial fibrillation
--- NOTE | 2021-08-25 15:08 | Hospitalist Progress Note ---
Date of Service August 25, 2021 Assessment & Plan (1) Acute systolic heart failure: Plan: Acute systolic heart failure, EF 20% on echo. Held Lasix with rise in creatinine. Creatinine is still up at 1.47. OK with one dose of Lasix this afternoon then re-evaluate volume status and am labs per cardiology. Cont low Na diet and daily weights. Cont plan per cardiology (2) Acute kidney injury: Plan: 2/2 diuretic use vs volume overload. Cont management as outlined above. BMp in am. (3) COPD (chronic obstructive pulmonary disease): Plan: chronic, stable, no wheezing. Cont current therapy. (4) Atrial fibrillation: Plan: Chronic, rate controlled and cont anticoagulation with apixaban. (5) Alcohol abuse: Plan: High risk for withdrawal. Ativan PRN (6) DM2 (diabetes mellitus, type 2): Plan: Chronic, at goal. Cont current medical therapy. (7) DVT prophylaxis: Plan: apixaban Full Dispo-uncertain at this time. Tiffany Ynu DO [facility] Hospitalist Admission and Anticipated Discharge Date Admission Date: August 22, 2021 Subjective 71 yo M with chronic systolic heart failure presented wt worsening SOB and fluid retention x 2 weeks. Treated for acute systolic heart failure denies chest pain reports breathing is "ok" denies cough hasn't gotten out of bed to walk around the halls because "they won't let me" denies stomach pain and tolerating PO without issue. Review of Systems Review of Systems: All systems were reviewed and negative except as indicated above. Physical Exam Physical Exam: CONSTITUTIONAL: WNWD, vitals as above, generally NAD EYES: normal conjunctivae, no scleral icterus ENT: external ear and nose normal, MMM NECK: trachea midline RESPIRATORY: clear to auscultation bilaterally, no crackles, rales or wheezes, normal respiratory effort CARDIOVASCULAR: regular rate and rhythm, S1 and 2 heard without murmurs, gallops or rubs, no JVD, trace peripheral edema. CHEST: inspection of chest was normal GASTROINTESTINAL: soft, nontender, ND, no guarding. MUSCULOSKELETAL: strength 5/5 throughout, head is normocephalic and atraumatic SKIN: warm and dry NEUROLOGIC: CN 2-12 grossly intact, no sensory deficit, normal cognition, normal speech, no tremor PSYCHIATRIC: alert cooperative and oriented to person, place and time. Results & Data Results & Data ([facility]) Vital Signs (Past 12 Hours) Vital Signs Temp Pulse Resp BP Pulse Ox 08/25/21 11:12 36.3 C L 84 20 125/75 95 08/25/21 06:58 36.4 C L 83 19 141/97 H 96 08/25/21 03:09 36.7 C 67 17 131/88 95 Laboratory Results Short CBC 08/25/21 Range/Units 05:45 WBC 7.49 (4.8-10.8) K/uL Hgb 13.8 L (14.0-18.0) g/dL Hct 41.5 L (42-52) % Plt Count 249 (130-400) K/uL BMP 08/25/21 05:45 Sodium 132 L Potassium 4.6 Chloride 96 L Carbon Dioxide 29 BUN 31 H Creatinine 1.47 H Glucose 105 H Calcium 9.3 Medications Administered Current Inpatient Medications Acetaminophen (Acetaminophen 325 Mg Tab) 650 mg PO Q4H PRN PRN Reason: Pain or Fever Stop: 09/22/21 00:03 Apixaban (Apixaban 5 Mg Tablet) 5 mg PO BID [facility] Stop: 09/22/21 08:59 Last Admin: 08/25/21 07:28 Dose: 5 mg Documented by: Atorvastatin Calcium (Atorvastatin 40 Mg Tab) 40 mg PO DAILY [facility] Stop: 09/22/21 08:59 Last Admin: 08/25/21 07:29 Dose: 40 mg Documented by: Bismuth Subsalicylate (Bismuth Subsalicylate Susp) 30 ml PO QID PRN PRN Reason: upset stomach Stop: 09/22/21 00:03 Dextrose (Dextrose 50% 50 Ml Syringe) 25 - 50 ml IV UD PRN; Protocol PRN Reason: Hypoglycemia Protocol Stop: 09/22/21 00:03 Docusate Sodium (Docusate Sodium 100 Mg Cap) 100 mg PO DAILY [facility] Stop: 09/22/21 08:59 Last Admin: 08/25/21 07:28 Dose: 100 mg Documented by: Doxycycline Hyclate (Doxycycline Hyclate 100 Mg Cap) 100 mg PO BID [facility] Stop: 08/30/21 08:59 Last Admin: 08/25/21 07:29 Dose: 100 mg Documented by: Fluticasone/Vilanterol (Fluticasone/Vilanterol 100/25mcg 14 Puffs/Inhaler) 1 puffs INH DAILY [facility] Stop: 09/22/21 08:59 Last Admin: 08/25/21 07:29 Dose: 1 puffs Documented by: Folic Acid (Folic Acid 1 Mg Tab) 1 mg PO QAM [facility] Stop: 09/22/21 08:59 Last Admin: 08/25/21 07:28 Dose: 1 mg Documented by: Glucagon (Glucagon For Inj 1 Mg Vial) 1 mg SQ UD PRN; Protocol PRN Reason: Hypoglycemia Protocol Stop: 09/22/21 00:03 Glucose (Glucose 10 Tabs/Tube) 4 - 8 tabs PO UD PRN; Protocol PRN Reason: Hypoglycemia Protocol Stop: 09/22/21 00:03 Glucose (Glucose 40% Gel 15 Gm Tube) 15 - 30 gm PO UD PRN; Protocol PRN Reason: Hypoglycemia Protocol Stop: 09/22/21 00:03 Promethazine HCl 12.5 mg/ (Sodium Chloride) 50.5 mls @ 202 mls/hr IV Q6H PRN PRN Reason: Nausea And Vomiting Stop: 09/22/21 00:03 Insulin Aspart (Insulin Aspart Per Unit) 0 units SC ACHS [facility] Stop: 09/22/21 00:03 Last Admin: 08/25/21 13:11 Dose: 8 units Documented by: Insulin Glargine (Insulin Glargine Solostar 100 Units/Ml 3 Ml Pen) 10 units SC HS [facility] Stop: 09/22/21 20:59 Last Admin: 08/24/21 20:48 Dose: 10 units Documented by: Ipratropium [place] (Ipratropium [place] Neb Soln 0.02% 2.5 Ml Vial) 0.5 mg INH Q4H PRN PRN Reason: SOB or wheezing Stop: 09/22/21 00:03 Last Admin: 08/23/21 01:17 Dose: 0.5 mg Documented by: Levalbuterol HCl (Levalbuterol 1.25mg/0.5ml Neb) 1.25 mg INH Q4H PRN PRN Reason: SOB or wheezing Stop: 09/22/21 00:03 Last Admin: 08/23/21 01:17 Dose: 1.25 mg Documented by: Lisinopril (Lisinopril 5 Mg Tab) 5 mg PO DAILY [facility] Stop: 09/22/21 08:59 Last Admin: 08/24/21 08:05 Dose: 5 mg Documented by: Lorazepam (Lorazepam 2 Mg/1 Ml Vial) 0.5 mg IV Q4H PRN PRN Reason: Anxiety Stop: 09/22/21 03:36 Metoprolol Succinate (Metoprolol Succ 50mg Ext Rel Tab) 100 mg PO DAILY [facility] Stop: 09/22/21 08:59 Last Admin: 08/25/21 07:29 Dose: 100 mg Documented by: Miscellaneous (Carbohydrates For Hypoglycemia ) 15 - 30 gm PO UD PRN PRN Reason: Hypoglycemia Protocol Stop: 09/22/21 00:03 Multivitamins (Multivitamin Tab) 1 tab PO QAM [facility] Stop: 09/22/21 08:59 Last Admin: 08/25/21 07:29 Dose: 1 tab Documented by: Nitroglycerin (Nitroglycerin Sl 0.4 Mg/Tab Tab) 0.4 mg SL Q5M PRN PRN Reason: Chest Pain Stop: 09/22/21 00:03 Potassium Chloride (Potassium Chloride Crtab 20 Meq Tabcr) 20 meq PO BID [facility] Stop: 09/22/21 08:59 Last Admin: 08/25/21 07:28 Dose: 20 meq Documented by: Spironolactone (Spironolactone 25 Mg Tab) 25 mg PO DAILY [facility] Stop: 09/23/21 08:59 Last Admin: 08/25/21 07:28 Dose: 25 mg Documented by: Thiamine HCl (Thiamine Hcl 100 Mg Tab) 100 mg PO QAM [facility] Stop: 09/23/21 08:59 Last Admin: 08/25/21 07:29 Dose: 100 mg Documented by: Tramadol HCl (Tramadol Hcl 50 Mg Tablet) 25 - 50 mg PO Q4H PRN PRN Reason: Pain Stop: 09/22/21 00:03 (1) Atrial fibrillation Atrial fibrillation type: permanent Qualified Code(s): I48.21 - Permanent atrial fibrillation (2) COPD (chronic obstructive pulmonary disease) COPD type: unspecified COPD Qualified Code(s): J44.9 - Chronic obstructive pulmonary disease, unspecified
[2021-08-25] MEDS ORDERED: FUROSEMIDE 40 MG/4 ML VIAL IV ONE (16:11)
[2021-08-25] MEDS: INSULIN GLARGINE SOLOSTAR 100 UNITS/ML 3 ML PEN SC SCH (19:32)
[2021-08-26] MEDS: LEVALBUTEROL 1.25MG/0.5ML NEB INH PRN (04:08)
[2021-08-26] MEDS: IPRATROPIUM BROMIDE NEB SOLN 0.02% 2.5 ML VIAL INH PRN (04:08)
[2021-08-26 07:30] LABS: BUN Creatinine Ratio 21.7 (10-20); Calcium 8.8 mg/dl (8.5-10.1); Creatinine Clr Calc Pharmacy 51.2 ml/min; Est GFR (African American) 57.1 ml/min; Est GFR (Non-African American) 49.3 ml/min; Magnesium 1.9 mg/dl (1.7-2.4); Potassium 4.7 mmol/L (3.5-5.1)
[2021-08-26] MEDS: INSULIN ASPART PER UNIT SC SCH ×2 (08:45→12:26)
[2021-08-26] MEDS: POTASSIUM CHLORIDE CRTAB 20 MEQ TABCR PO SCH (08:57)
[2021-08-26] MEDS: SPIRONOLACTONE 25 MG TAB PO SCH (08:57)
[2021-08-26] MEDS: THIAMINE HCL 100 MG TAB PO SCH (08:57)
[2021-08-26] MEDS: METOPROLOL SUCC 50MG EXT REL TAB PO SCH (08:58)
[2021-08-26] MEDS: ATORVASTATIN 40 MG TAB PO SCH (08:58)
[2021-08-26] MEDS: FLUTICASONE/VILANTEROL 100/25MCG 14 PUFFS/INHALER INH SCH (08:58)
[2021-08-26] MEDS: APIXABAN 5 MG TABLET PO SCH (08:58)
[2021-08-26] MEDS: DOXYCYCLINE HYCLATE 100 MG CAP PO SCH (08:58)
[2021-08-26] MEDS: FOLIC ACID 1 MG TAB PO SCH (08:58)
[2021-08-26] MEDS: MULTIVITAMIN TAB PO SCH (08:58)
[2021-08-26] MEDS: DOCUSATE SODIUM 100 MG CAP PO SCH (08:59)
--- NOTE | 2021-08-26 11:11 | Cardiology Progress Note ---
Date of Service August 26, 2021 Assessment & Plan (1) Increasing shortness of breath: (2) COPD (chronic obstructive pulmonary disease): (3) Hypervolemia: (4) Elevated troponin: (5) NICM (nonischemic cardiomyopathy): (6) Alcohol abuse: (7) History of left heart catheterization (LHC): (8) Noncompliance: (9) Atrial fibrillation: Plan: acute decompensated LV systolic function with significant volume overload already on GDMT but hx of noncompliance. Pt states that he's been compliant with meds over 4L negative since admission, output starting to decline. He does not examine his volume overloaded at this time so no further IV diuresis is necessary. We will start him on furosemide 40 mg daily today and should be continued upon discharge. An additional afternoon dose to be taken as needed. cont eliquis, metoprolol, lisinopril and spironolactone (will increase to 25mg daily) Okay to DC to home from a cardiac standpoint. echo showed significant reduction of LV and RV systolic function along with pulmonary hypertension and moderate secondary mitral regurgitation. again, already on appropriate medical therapy as an outpatient except for ISAIAS/ARB (stopped in 01/13 due to renal impairment) most recent ischemic eval 01/13 with nonischemic nuclear stress will need to rule out ischemia again with worsening BiV failure will likely require BiV icd for resynchonization no roll for Entresto given presence of permanent afib would benefit from addition of Jardiance (SGLT2) and discontinuation of glipizide I reviewed the findings of his echocardiogram with him and recommended close follow-up as an outpatient and referral to electrophysiology for possible BiV ICD placement if his EF does not improve. We will also require Lexiscan nuclear stress test as an outpatient. My office will call to arrange upon discharge. Admission and Anticipated Discharge Date Admission Date: August 22, 2021 Subjective Patient seen and examined, chart reviewed. Patient states that he feels well today. Notes that he is close to his baseline. Denies any chest pain or shortness of breath with minimal activities. Review of Systems Review of Systems: All systems reviewed & are unremarkable except as noted in HPI & below Physical Exam Physical Exam: General: Awake, alert and oriented x 3. No acute distress. HEENT: Normocephalic, atraumatic. Pupils equal, round and reactive to light and accommodation. Extraocular muscles are intact. Anicteric sclera. Moist mucous membranes. Neck: No JVD. No bruit. Cardiovascular: irregularly irregular, unable to appreciate murmur, rub or gallop. Pulmonary: Clear to auscultation bilaterally. No rales, rhonchi, or wheezing. Abdomen: Bowel sounds x 4, soft. No rebound, guarding or tenderness. No organomegaly. Extremities: No clubbing, cyanosis or edema. +2 pedal pulses bilaterally. Skin: Warm and dry. Results & Data ([facility]) Vital Signs (Past 12 Hours) Vital Signs Temp Pulse Pulse Resp BP Pulse Ox 08/26/21 08:00 91 H 08/26/21 06:57 36.4 C L 82 18 156/84 H 92 08/26/21 04:08 99 H 18 94 08/26/21 02:44 36.5 C 92 H 16 141/105 H 96 08/25/21 23:24 36.7 C 74 18 128/84 97 (1) COPD (chronic obstructive pulmonary disease) COPD type: unspecified COPD Qualified Code(s): J44.9 - Chronic obstructive pulmonary disease, unspecified (2) Hypervolemia Hypervolemia type: unspecified Qualified Code(s): E87.70 - Fluid overload, unspecified (3) Atrial fibrillation Atrial fibrillation type: permanent Qualified Code(s): I48.21 - Permanent atrial fibrillation
--- NOTE | 2021-08-26 12:47 | Discharge Summary ---
Date of Service August 26, 2021 Admission HPI Per Admitting Provider History obtained from patient and records. Medical history significant for chronic systolic failure (EF 35-39%, TTE 2020,), valvular heart disease (moderate MR/TR, mild AR TTE 2020), nonocclusive CAD, COPD, pulmonary hypertension, hypertension, hyperlipidemia, A. fib on Eliquis, DM2 on oral medications, medication noncompliance as per records, chronic hyponatremia, chronic anemia (baseline hemoglobin of 13 ), past tobacco abuse, alcohol abuse as per records. Last confinement November 2020 for decompensated heart failure. Patient seen at fiscal clerk office last month. Patient with cough and fluid retention issues. Furosemide and spironolactone prescribed. 2 weeks ago, patient noted junky cough symptoms and chest pain with coughing. No known recent COVID-19 contacts. Patient received COVID-19 vaccination. Increase in fluid retention and orthopnea symptoms despite compliance with home medications as per patient. Denies dietary indiscretion or OTC NSAID intake. Patient received Lasix and neb treatment upon arrival at the ER. 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 Admission Exam Per Admitting Provider Physical Exam: GENERAL: Slightly hard of hearing, no respiratory distress SKIN: Normal color, warm HEENT: [place] palpebral conjunctivae, no ptosis, dry buccal mucosa NECK : Supple, no tenderness CHEST : Decreased breath sounds, no tenderness HEART : Irregular, apical systolic murmur ABDOMEN: Some distention, nontender EXTREMITIES : Minimal LE swelling, no LE tenderness, no other conspicuous deformities noted NEUROLOGIC : Coherent, no facial asymmetry, slightly hard of hearing, no other gross focality Principal Diagnosis Acute systolic heart failure Acute kidney injury Alcohol abuse Discharge Exam CONSTITUTIONAL: WNWD, vitals as above, generally NAD EYES: normal conjunctivae, no scleral icterus ENT: external ear and nose normal, MMM NECK: trachea midline RESPIRATORY: clear to auscultation bilaterally, no crackles, rales or wheezes, normal respiratory effort CARDIOVASCULAR: regular rate and rhythm, S1 and 2 heard without murmurs, gallops or rubs, no JVD, trace peripheral edema. CHEST: inspection of chest was normal GASTROINTESTINAL: soft, nontender, ND, no guarding. MUSCULOSKELETAL: strength 5/5 throughout, head is normocephalic and atraumatic SKIN: warm and dry NEUROLOGIC: CN 2-12 grossly intact, no sensory deficit, normal cognition, normal speech, no tremor PSYCHIATRIC: alert cooperative and oriented to person, place and time. Discharge Data Allergies Allergy/AdvReac Type Severity Reaction Status Date / Time No Known Allergies Allergy Verified 08/22/21 19:06 Consultations 08/22/21 20:50 ED Decision to Admit Stat 08/23/21 00:04 Consult Cardiology Routine Ordered Studies Laboratory Results WBC 7.49 K/uL (4.8-10.8) 08/25/21 05:45 RBC 4.44 M/uL (4.7-6.1) L 08/25/21 05:45 Hgb 13.8 g/dL (14.0-18.0) L 08/25/21 05:45 Hct 41.5 % (42-52) L 08/25/21 05:45 MCV 93.5 fL (80-100) 08/25/21 05:45 MCH 31.1 pg (25-34) 08/25/21 05:45 MCHC 33.3 g/dL (32-36) 08/25/21 05:45 RDW Std Deviation 49.6 fL (36.4-46.3) H 08/25/21 05:45 RDW Coeff of Cole 14.5 % (11.5-14.5) 08/25/21 05:45 Plt Count 249 K/uL (130-400) 08/25/21 05:45 MPV 11.4 fL (7.4-10.4) H 08/25/21 05:45 Immature Gran % (Auto) 0.3 % 08/23/21 05:26 Neut % (Auto) 58.7 % 08/23/21 05:26 Lymph % (Auto) 27.2 % 08/23/21 05:26 [place] % (Auto) 12.6 % 08/23/21 05:26 Eos % (Auto) 0.7 % 08/23/21 05:26 Baso % (Auto) 0.5 % 08/23/21 05:26 Neut # (Auto) 4.30 K/uL (1.4-6.5) 08/23/21 05:26 Lymph # (Auto) 1.99 K/uL (1.2-3.4) 08/23/21 05:26 [place] # (Auto) 0.92 K/uL (0.11-0.59) H 08/23/21 05:26 Eos # (Auto) 0.05 K/uL (0-0.5) 08/23/21 05:26 Baso # (Auto) 0.04 K/uL (0-0.2) 08/23/21 05:26 Immature Gran # (Auto) 0.02 K/uL (0.00-0.02) 08/23/21 05:26 PT 12.3 Seconds (9.0-12.0) H 08/22/21 18:08 INR 1.2 (0.9-1.1) H 08/22/21 18:08 Sodium 134 mmol/L (136-145) L 08/26/21 06:02 Potassium 4.7 mmol/L (3.5-5.1) 08/26/21 06:02 Chloride 97 mmol/L (98-107) L 08/26/21 06:02 Carbon Dioxide 29 mmol/L (21-32) 08/26/21 06:02 Anion Gap 8 (3-11) 08/26/21 06:02 BUN 31 mg/dl (6-23) H 08/26/21 06:02 Creatinine 1.43 mg/dl (0.6-1.4) H 08/26/21 06:02 Est Cr Clr Drug Dosing 51.2 ml/min 08/26/21 06:02 Est GFR ( Amer) 57.1 ml/min 08/26/21 06:02 Est GFR (Non-Af Amer) 49.3 ml/min 08/26/21 06:02 BUN/Creatinine Ratio 21.7 (10-20) H 08/26/21 06:02 Glucose 152 mg/dl (70-99(Fasting)) H 08/26/21 06:02 POC Glucose 253 mg/dl (70-99) H 08/26/21 11:46 Estimat Average Glucose 192 mg/dl 08/23/21 05:26 Hemoglobin A1c 8.3 % (4.5-5.6) H 08/23/21 05:26 Calcium 8.8 mg/dl (8.5-10.1) 08/26/21 06:02 Phosphorus 4.0 mg/dl (2.5-4.9) 08/26/21 06:02 Magnesium 1.9 mg/dl (1.7-2.4) 08/26/21 06:02 Total Bilirubin 0.6 mg/dl (0.2-1.0) 08/22/21 18:08 Direct Bilirubin 0.1 mg/dl (0-0.2) 08/22/21 18:08 AST 55 U/L (13-39) H 08/22/21 18:08 ALT 64 U/L (7-52) H 08/22/21 18:08 Alkaline Phosphatase 156 U/L (34-104) H 08/22/21 18:08 Troponin I 0.06 ng/ml (0-0.04) H* 08/23/21 05:26 B-Natriuretic Peptide 2870 pg/ml (0-100) H 08/22/21 18:23 Total Protein 6.9 gm/dl (6.0-8.3) 08/22/21 18:08 Albumin 3.7 gm/dl (3.4-5.0) 08/22/21 18:08 Globulin 3.2 gm/dl (2.5-4.0) 08/22/21 18:08 Albumin/Globulin Ratio 1.2 (0.9-2) 08/22/21 18:08 Lipase 26 U/L (11-82) 08/22/21 18:08 TSH 9.589 uIu/ml (0.300-4.500) H 08/22/21 18:08 Free T4 0.87 ng/dl (0.61-1.60) 08/22/21 18:08 Urine Color Yellow 08/22/21: Urine Appearance Clear (Clear) 08/22/21: Urine pH 7.0 (4.5-7.5) 08/22/21: Ur Specific [place] 1.011 (1.000-1.030) 08/22/21: Urine Protein Trace (Negative) H 08/22/21 21: Urine Glucose (UA) Negative (Negative) 08/22/21: Urine Ketones Negative (Negative) 08/22/21: Urine Blood Negative (Negative) 08/22/21 21:27 Urine Nitrite Negative (Negative) 08/22/21 21:27 Urine Bilirubin Negative (Negative) 08/22/21 21:27 Urine Urobilinogen Negative (Negative) 08/22/21 21:27 Ur Leukocyte Esterase Negative (Negative) 08/22/21 21:27 Urine WBC (Auto) 0 /hpf (0-5) 08/22/21 21:27 Urine RBC (Auto) 0-4 /hpf (0-4) 08/22/21 21: U Hyaline Cast (Auto) 0 /lpf (0-5) 08/22/21 21: U Epithel Cells (Auto) 0-5 /lpf (0-5) 08/22/21 21:27 Urine Bacteria (Auto) Negative (Negative) 08/22/21 21:27 Ethyl Alcohol mg/dL 12.6 mg/dl (<10.0) H 08/22/21 18:23 SARS-CoV-2, RNA, NAAT NEGATIVE (NEGATIVE) 08/22/21 18:51 Impressions Chest X-Ray 08/22/21 17:57 XR chest 1V portable HISTORY: Atypical Chest Pain COMPARISON: Chest 11/27/2020 FINDINGS: No pneumothorax. There are trace bilateral pleural effusions. The cardiac silhouette remains mildly enlarged. Patchy bibasilar densities are similar to the prior study. The upper lung zones are clear. There is mild central pulmonary vascular congestion without overt edema. IMPRESSION: 1. Cardiomegaly with mild central pulmonary vascular congestion without overt edema. 2. Trace bilateral pleural effusions. 3. Patchy bibasilar densities persist. This may represent atelectasis or pneumonia. ACT 112: Negative or not required by law. Electronically signed by: Duc Reich M.D. 08/22/2021 6:42 PM Abdomen/Pelvis CT 08/22/21 18:45 CT OF THE ABDOMEN AND PELVIS WITH CONTRAST CLINICAL HISTORY: Abdominal pain. Fluid retention. COMPARISON STUDY: CT of the abdomen and pelvis November 25, 2020. TECHNIQUE: Following IV administration of 94 mL of Optiray, axial images of the abdomen and pelvis were obtained from the lung bases to the proximal femurs. Images were reviewed in the axial, sagittal, and coronal planes. IV contrast was administered without complication. Automated exposure control was utilized for the study. A dose lowering technique was utilized adhering to the principles of ALARA. CT DOSE: 697.49 mGy.cm FINDINGS: Within visualized portions of the lower chest, note is made of cardiomegaly, small bilateral pleural effusions and interlobular septal thickening consistent with pulmonary edema. No pneumatosis, free air or portal venous gas is present. Small amount of abdominal and pelvic ascites is noted. No fluid collection is suggest an abscess. Body wall edema is present. Presacral edema is present. Moderate gallbladder wall thickening is noted. The spleen, adrenal glands, kidneys and pancreas are unremarkable with exception of multiple small wedge-shaped hypodensities within the left kidney which favor scarring or small old infarcts. No biliary or pancreatic ductal dilatation is present. There is no hy dronephrosis. There is no evidence for a bowel obstruction. The caliber and wall thickness of small and large bowel are normal. Appendix is normal. No abdominal or pelvic lymphadenopathy is noted. Bladder wall thickening is similar to prior CT. Extensive atherosclerotic plaque within the abdominal aorta and branch vessels is noted. Evaluation for stenoses is difficult given extensive calcified plaque on this non-CTA exam. IMPRESSION: 1. No bowel obstruction. No bowel wall thickening. Normal appendix. 2. Evidence for volume overload with interstitial pulmonary edema, small bilateral pleural effusions, body wall edema and a small amount of abdominal and pelvic ascites. Gallbladder wall thickening is likely due to volume overload as well. 3. Mildly distended bladder. Bladder wall thickening, likely chronic. 4. Multiple small wedge-shaped hypodensities within the left kidney. Although age indeterminate, these are probably not acute given volume loss and favor scarring or old small infarcts. ACT 112: Negative or not required by law. Electronically signed by: Ameya Henriquez M.D. 08/22/2021 7:44 PM Hospital Course (1) Acute systolic heart failure: (2) Acute kidney injury: (3) COPD (chronic obstructive pulmonary disease): (4) Atrial fibrillation: (5) Alcohol abuse: 71 yo M with known history of systolic heart failure presents with signs and symptoms of volume overload. He was admitted to the hospitalist service and started on intravenous furosemide with improvement in symptoms and fluid retention. Cardiology was consulted and noted a history of known noncompliance with medical therapy despite being on GDMT. Spironolactone was increased to 25mg daily. An echocardiogram revealed significant reduction of LV and RV systolic function along with pulmonary hypertension and moderate secondary mitral regurgitation. GDMT was in placed except for ISAIAS/ARB which was stopped 01/13 due to renal impairment. His most recent ischemic evaluation on 01/13 was a nonischemic nuclear stress test. Ischemia will again need to be ruled out with worsening BiV failure. Per cardiology recommendations he will likely require BiV ICD for resynchronization therapy and would benefit from the addition of Jardiance and discontinuation of glipizide. Per cardiology, there is no roll for Entresto given the presence of permanent atrial fibrillation. Lexiscan nuclear stress test recommended as outpatient, and [facility] Cardiology office will contact patient post-discharge to arrange this. Labwork during his stay did reflect a bump in creatinine consistent with acute kidney injury likely 2/2 diuretic use vs volume overload. Lasix was held because of this during his stay for a short time. Creatinine on admission was 1.08 and at time of discharge it was 1.43. On day of discharge patient was eager to go home and was compensated with symptoms improved. A repeat BMP was recommended within one week to ensure creatinine improved with time away from the intravenous diuretics given in the hospital. Total Time Total Time Spent Total Time Spent (In Minutes): 60 Discharge Plan Discharge Items Patient Disposition: Home - Home Health Services Reason For Visit: CHF Discharge Diagnosis: Acute systolic heart failure Acute kidney injury Alcohol abuse Condition on Discharge: Good Activity: Resume your previous activity Non-emergency contact: Primary Care Provider and Nut Tapper Call non-emergency contact if: you have any medication questions, your symptoms worsen, your pain is not controlled, your pain is worsening, your pain is unusual for you, your pain is concerning for you and you have a fever Follow-up/Referrals: Samir De MD [Primary Care Provider] - 08/30/21 3:00 pm (Date & Time 08/30/2021 3:00 PM Provider Samir De MD Department Family Medicine [facility] ) Diet: Carb Consistent or DM2 and Heart Healthy Addtl Attending Provider Instructions: Please take all medications as instructed on discharge list below. Please stick to a low sodium diet including no more than 2000mg daily. Please follow-up with your primary care physician in one week to ensure you are still doing well after returning home, review medication changes and order blood work to monitor kidney function and electrolytes after medication changes. Your blood sugar will also need to be closely monitored after the change in your diabetic medications. Please follow-up with [facility] Cardiology as instructed for consideration of a pacemaker device that may optimize your heart function. The office will be contacting you to schedule this visit. It was a pleasure taking care of you! Please call if you have any questions or problems. You can reach a [facility] hospitalist on duty at [facility] 24 hours a day by calling [phone]. Take care of yourself. Tiffany Yun, [facility] Hospitalist Addtl Grave Digger Provider Instructions: Call [phone] and go to the Emergency Room if: * You have tightness or pain in your chest that does not go away with rest or Nitroglycerin * You are very short of breath even with rest Call your doctor if any of the following symptoms or problems start or get worse: * Shortness of breath or difficulty breathing * Wake up at night short of breath * Chest pain * Cough * Swelling of your hands, fee, or legs * More fatigued or tired with your normal activity * Palpitations - sudden fast heart beats WEIGHT * Weigh yourself every morning after using the bathroom. * Use the same scale. * Wear the same amount of clothing. * Write your weight down on your chart. * Call your doctor if you gain more than 2-3 pounds in 1-2 days. MEDICATIONS * Use this discharge instruction sheet for instructions. * Take your medications at the time your doctor ordered. * Do not skip a dose of your medicines. * If you miss a dose of medicine, take as soon as possible, but DO NOT DOUBLE A DOSE. * Read your medicine information when you get home. * Know all of the side effects of your medicine. * Call your doctor's office if you have any side effects. * Be sure all of your doctors know what medicine and herbs you take (including cold, flu, and herbal medicine). * Pain Medicine: If you do not get relief from your pain, please call your doctor for help. Take the following with you to your follow-up doctor appointments: * Weight Chart * Medication List * List of questions Do not drink excessive alcohol, beer or wine. Pending Studies at Discharge: No Stand-Alone Forms: My [facility] Medications and DC Order Prescriptions: New spironolactone 25 mg Tablet 25 mg PO DAILY Qty: 30 RF: 0 Jardiance 10 mg tablet 10 mg PO DAILY Qty: 30 RF: 0 Continued atorvastatin 40 mg tablet 40 mg PO DAILY RF: 0 lisinopril 5 mg tablet 5 mg PO DAILY RF: 0 metformin 500 mg tablet extended release 24 hr 500 mg PO BID RF: 0 Eliquis 5 mg tablet 5 mg PO BID RF: 0 fluticasone propion-salmeterol [Advair Diskus] 250-50 mcg/dose Blister With Device 1 inh INHALATION BID RF: 0 albuterol sulfate 2.5 mg /3 mL (0.083 %) solution for nebulization 2.5 mg inhalation Q4H PRN (Reason: Wheezing) RF: 0 metoprolol succinate 100 mg Tablet Extended Release 24 Hr 100 mg PO DAILY RF: 0 acetaminophen [Tylenol Extra Strength] 500 mg Tablet 1,000 mg PO Q6H PRN (Reason: Pain) RF: 0 docusate sodium 100 mg capsule 100 mg PO DAILY RF: 0 alum-mag hydroxide-simeth 200-200-20 mg/5 mL Suspension 15 ml PO Q6H PRN (Reason: Upset Stomach) RF: 0 albuterol sulfate 90 mcg/actuation HFA aerosol inhaler 2 puff INHALATION Q4H PRN (Reason: Wheezing/Dyspnea) RF: 0 bismuth subsalicylate 525 mg/15 mL Suspension 525 mg PO QID PRN (Reason: upset stomach) RF: 0 Changed furosemide 20 mg tablet 40 mg PO DAILY Qty: 60 RF: 0 Discontinued glipizide 10 mg tablet extended release 24hr 10 mg PO DAILY RF: 0 spironolactone 25 mg tablet 12.5 mg PO 3XWK RF: 0 Discharge Orders: Discharge Order (Routine); Ordered 08/26/21 Ordered By: Tiffany Iverson/Other Patient Handouts: Jardiance Oral Tablet 10 mg, Managing Type 2 Diabetes, Heart Failure Diet Changes, Heart Failure Dc Admission Data Admit Date/Time: 08/22/21 23:08 Attending Provider: Tiffany Yun Admit Provider: Vitaliy Rodrigez Primary Care Provider: Samir De Other Providers: Vitaliy Rodrigez ; Fili Golden ; David Bone ; Chepe Oropeza ; Clarence Mcqueen ; Lyndon Choe ; Jose Luis Bonilla ; Jennifer Argueta ; Kathrin Wolfe ; Dominique Dale ; Ben Cuello Other Interventions: Discharge Summary Assessment (RN) Last Done: 08/26/21 13:24
== END 2021-08-26 15:17 | disposition home health service (06) | DRG 291 ==
LOC: ED 17:50 → 2S 23:08
DX: I48.91 Unspecified atrial fibrillation; I42.8 Other cardiomyopathies; E87.1 Hypo-osmolality and hyponatremia; Z79.899 Other long term (current) drug therapy; I25.10 Atherosclerotic heart disease of native coronary artery without angina pectoris; J44.9 Chronic obstructive pulmonary disease, unspecified; N17.9 Acute kidney failure, unspecified; I08.3 Combined rheumatic disorders of mitral, aortic and tricuspid valves; F10.10 Alcohol abuse, uncomplicated; I11.0 Hypertensive heart disease with heart failure; Z79.51 Long term (current) use of inhaled steroids; I50.23 Acute on chronic systolic (congestive) heart failure; Z79.01 Long term (current) use of anticoagulants; Z79.84 Long term (current) use of oral hypoglycemic drugs; I48.20 Chronic atrial fibrillation, unspecified; Z87.891 Personal history of nicotine dependence; I27.20 Pulmonary hypertension, unspecified; E11.9 Type 2 diabetes mellitus without complications

== ENCOUNTER 2021-10-06 17:58 | Inpatient (IN) ==
--- NOTE | 2021-10-06 18:05 | Emergency Department Note ---
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 The patient states that he was try to get hold the door and fell down. The patient denies any head strike or pain. Patient has any fevers chills chest pain shortness of breath nausea or vomiting. Patient does admit to drinking 9 beers today and states that he will typically drink about 6 beers daily and has done so for some time. The patient denies any abdominal pain chest pain upper extremity or lower extremity pain. Patient reported was confused but had been drinking today and thus was brought here for further evaluation treatment. Unsure as whether not patient takes any blood thinning medications. Per review of the patient's medication list the patient may take Eliquis. ROS: See HPI for pertinent positives and negatives. A total of 10 systems were reviewed and otherwise negative. Past medical history: See below Surgical history: See below Social history: See below Physical Exam: GENERAL: NAD, wearing a mask, non-toxic. EYE EXAM: Normal conjunctiva. PERRL, no anisocoria and EOM's grossly intact w/o pain. Head: Normocephalic atraumatic. NECK: Supple, no nuchal rigidity, no adenopathy, non-tender. No signs of meningismus. No midline C-spine TTP. Chest: No reproducible chest wall pain. LUNGS: Clear to auscultation. Normal chest wall mechanics. HEART: Irregularly irregular, no MRG. ABDOMEN: Abdomen soft, non-tender, normo-active bowel sounds, no masses, no rebound or guarding. BACK: No CVA TTP. SKIN: No rashes and no bruising. UPPER EXTREMITIES: Upper extremities are grossly normal. No TTP or obvious deformity. LOWER EXTREMITIES: Grossly normal, no edema. No TTP or obvious deformity. NEURO EXAM: A&O x3, cranial nerves II-XII grossly intact, normal speech, moves all 4 extremities on command w/o issue. No sensory deficits Differential diagnoses: Alcohol intoxication, toxicologic, infection, hypoglycemia, electrolyte abnormalities, cardiac sources, intracerebral event, neurologic, trauma, as well as other pathologies. Course: Patient was seen and evaluated the bedside. Full history physical exam was performed. EKG interpreted by me Raudel olson, rate of 94, normal QRS, left axis deviation. Imaging Studies: See Below Cardiac monitoring: An order was placed for continuous cardiac monitoring. The monitor shows a rate of 92 with sinus rhythm. MDM: Patient was seen due to concern for alcohol intoxication. Blood work is obtained along with CT of the head and cervical spine. The patient CTs were negative. The patient was noted to have significant hyponatremia at 120. This is likely from the patient's alcohol use but the patient does have a known histo ry of some heart failure. I did speak with the on-call hospitalist Dr. Wiley and the patient was admitted to the medicine service. The patient was ordered urine and serum awesome's as well as urine electrolytes. Patient has normal white counts and hemoglobin. Platelet count is unremarkable. The patient's kidney function unremarkable. Patient did have alcohol 156. Covid negative. Past Med/Surg History Medical History Alcohol abuse Alcohol abuse Anxiety Atrial fibrillation Atrial fibrillation CHF (congestive heart failure) CKD (chronic kidney disease), stage III COPD (chronic obstructive pulmonary disease) COPD (chronic obstructive pulmonary disease) DM2 (diabetes mellitus, type 2) Elevated troponin Fracture dislocation of right ankle GERD (gastroesophageal reflux disease) History of left heart catheterization (LHC) "nonocclusive CAD, normal LV function" HLD (hyperlipidemia) HTN (hypertension) Hypervolemia Hypokalemia Left ventricular dysfunction Surgical History History of ankle surgery History of cardiac cath 2008-nonocclussive CAD Family History Brother Cancer pancreatic cancer Mother Diabetes Sister Diabetes Father Heart disease Social History Smoking Status: Former smoker Tobacco Type: Cigarettes Second Hand Exposure: No; Do You Dip or Chew Tobacco: No; Tobacco Cessation Education Requested by Patient: No Hx Alcohol Use: Yes Alcohol type: beer Hx Substance Use: No Preferred Language: Persian Communication Ability: Effective Industrial Relations Commissioner Required: No Beliefs That Will Affect Care: None marital status: Unknown Current Living Situation: Alone How many Children do You have: 4 Other Information That Helps Us Care for You: No Feels Safe at Home: Yes Safety Concerns: Feels Safe At This Time Assistive Devices: Cane and Glasses Allergies Allergies Allergy/AdvReac Type Severity Reaction Status Date / Time No Known Allergies Allergy Verified 10/06/21 20:35 Home Meds Home Medications Medication Instructions Recorded Confirmed apixaban 5 mg tablet (Eliquis) 5 mg PO BID 11/25/20 10/06/21 atorvastatin 40 mg tablet 40 mg PO DAILY 11/25/20 10/06/21 metformin 500 mg tablet,extended 500 mg PO BID 11/25/20 10/06/21 release 24 hr acetaminophen 500 mg tablet 1,000 mg PO Q6H PRN 08/22/21 10/06/21 (Tylenol Extra Strength) albuterol sulfate 2.5 mg INHALATION Q4H PRN 08/22/21 10/06/21 albuterol sulfate 90 mcg/actuation 2 puff INHALATION Q4H PRN 08/22/21 10/06/21 aerosol inhaler aluminum-mag hydroxide-simethicone 15 ml PO Q6H PRN 08/22/21 10/06/21 200 mg-200 mg-20 mg/5 mL oral susp bismuth subsalicylate 525 mg/15 mL 525 mg PO QID PRN 08/22/21 10/06/21 oral suspension docusate sodium 100 mg capsule 100 mg PO DAILY 08/22/21 10/06/21 fluticasone 250 mcg-salmeterol 50 1 inh INHALATION BID 08/22/21 10/06/21 mcg/dose blistr powdr for inhalation (Advair Diskus) metoprolol succinate 100 mg 100 mg PO DAILY 08/22/21 10/06/21 tablet,extended release 24 hr glipizide 10 mg tablet 10 mg PO BID 10/05/21 10/06/21 gabapentin 100 mg capsule 100 mg PO TID 10/06/21 10/06/21 ramipril 2.5 mg capsule 2.5 mg PO DAILY 10/06/21 10/06/21 Previous Rx's Medication Instructions Recorded empagliflozin 10 mg tablet 10 mg PO DAILY #30 tab 08/26/21 (Jardiance) furosemide 20 mg tablet 40 mg PO DAILY #60 tab 08/26/21 spironolactone 25 mg tablet 25 mg PO DAILY #30 tab 08/26/21 Results & Data (ED) Vital Signs Vital Signs - 24 hr 10/06/21 18:07 10/06/21 18:09 10/06/21 21:00 Temperature 37.1 C Temperature Source Oral Pulse Rate 89 Pulse Rate [Finger] 89 Pulse Rhythm Regular Pulse Strength Normal Respiratory Rate 18 18 Respiratory Effort / Characteristics Non-Labored Respiratory Depth Normal Respiratory Pattern Regular Blood Pressure 154/82 H Blood Pressure [Right Arm] 131/85 Blood Pressure Mean 106 Blood Pressure Mean [Right Arm] 100 Blood Pressure Position Lying Pulse Oximetry 95 95 95 Oxygen Delivery Method Room Air Room Air Room Air Sepsis Recent Fever Within 48 Hours No Sepsis New/Unexplained Change in Mental Status No Sepsis Action Taken by Nursing No Action Required Home Medications Current Medication List: was personally reviewed by me Laboratory Data Attestation: I reviewed the patient's lab results. Result diagrams: 10/06/21 18:40 10/06/21 22:55 Lab Results 10/06/21 10/06/21 10/06/21 Range/Units 18:40 18:40 18:40 WBC 6.18 (4.8-10.8) K/uL RBC 4.79 (4.7-6.1) M/uL Hgb 14.5 (14.0-18.0) g/dL Hct 40.2 L (42-52) % MCV 83.9 (80-100) fL MCH 30.3 (25-34) pg MCHC 36.1 H (32-36) g/dL RDW Std Deviation 41.5 (36.4-46.3) fL RDW Coeff of Cole 13.5 (11.5-14.5) % Plt Count 191 (130-400) K/uL MPV 10.7 H (7.4-10.4) fL Immature Gran % (Auto) 0.3 % Neut % (Auto) 47.0 % Lymph % (Auto) 35.4 % [place] % (Auto) 13.1 % Eos % (Auto) 3.7 % Baso % (Auto) 0.5 % Neut # (Auto) 2.90 (1.4-6.5) K/uL Lymph # (Auto) 2.19 (1.2-3.4) K/uL [place] # (Auto) 0.81 H (0.11-0.59) K/uL Eos # (Auto) 0.23 (0-0.5) K/uL Baso # (Auto) 0.03 (0-0.2) K/uL Immature Gran # (Auto) 0.02 (0.00-0.02) K/uL Sodium 120 L (136-145) mmol/L Potassium TNP Chloride 92 L (98-107) mmol/L Carbon Dioxide 17 L (21-32) mmol/L Anion Gap 11 (3-11) BUN 26 H (6-23) mg/dl Creatinine 0.91 (0.6-1.4) mg/dl Est Cr Clr Drug Dosing 81.8 ml/min Est GFR ( Amer) 98.6 ml/min Est GFR (Non-Af Amer) 85.1 ml/min BUN/Creatinine Ratio 28.6 H (10-20) Glucose 106 H (70-99(Fasting)) mg/dl Osmolality (280-300) mOsm/kg Calcium 8.6 (8.5-10.1) mg/dl Total Bilirubin 0.5 (0.2-1.0) mg/dl AST TNP ALT 17 (7-52) U/L Alkaline Phosphatase 77 (34-104) U/L Total Protein 7.7 (6.0-8.3) gm/dl Albumin 4.1 (3.4-5.0) gm/dl Globulin 3.6 (2.5-4.0) gm/dl Albumin/Globulin Ratio 1.1 (0.9-2) Urine Osmolality (500-800) mOsm/kg Urine Sodium mmol/L Urine Potassium mmol/L Urine Chloride mmol/L Ethyl Alcohol mg/dL 156.9 H (<10.0) mg/dl SARS-CoV-2, RNA, NAAT (NEGATIVE) 10/06/21 10/06/21 10/06/21 Range/Units 20:05 20:10 20:43 WBC (4.8-10.8) K/uL RBC (4.7-6.1) M/uL Hgb (14.0-18.0) g/dL Hct (42-52) % MCV (80-100) fL MCH (25-34) pg MCHC (32-36) g/dL RDW Std Deviation (36.4-46.3) fL RDW Coeff of Cole (11.5-14.5) % Plt Count (130-400) K/uL MPV (7.4-10.4) fL Immature Gran % (Auto) % Neut % (Auto) % Lymph % (Auto) % [place] % (Auto) % Eos % (Auto) % Baso % (Auto) % Neut # (Auto) (1.4-6.5) K/uL Lymph # (Auto) (1.2-3.4) K/uL [place] # (Auto) (0.11-0.59) K/uL Eos # (Auto) (0-0.5) K/uL Baso # (Auto) (0-0.2) K/uL Immature Gran # (Auto) (0.00-0.02) K/uL Sodium (136-145) mmol/L Potassium 3.9 Chloride (98-107) mmol/L Carbon Dioxide (21-32) mmol/L Anion Gap (3-11) BUN (6-23) mg/dl Creatinine (0.6-1.4) mg/dl Est Cr Clr Drug Dosing ml/min Est GFR ( Amer) ml/min Est GFR (Non-Af Amer) ml/min BUN/Creatinine Ratio (10-20) Glucose (70-99(Fasting)) mg/dl Osmolality 301 H (280-300) mOsm/kg Calcium (8.5-10.1) mg/dl Total Bilirubin (0.2-1.0) mg/dl AST 24 ALT (7-52) U/L Alkaline Phosphatase (34-104) U/L Total Protein (6.0-8.3) gm/dl Albumin (3.4-5.0) gm/dl Globulin (2.5-4.0) gm/dl Albumin/Globulin Ratio (0.9-2) Urine Osmolality (500-800) mOsm/kg Urine Sodium mmol/L Urine Potassium mmol/L Urine Chloride mmol/L Ethyl Alcohol mg/dL (<10.0) mg/dl SARS-CoV-2, RNA, NAAT NEGATIVE (NEGATIVE) 04/13/22 04/13/22 Range/Units 22:15 22:15 WBC (4.8-10.8) K/uL RBC (4.7-6.1) M/uL Hgb (14.0-18.0) g/dL Hct (42-52) % MCV (80-100) fL MCH (25-34) pg MCHC (32-36) g/dL RDW Std Deviation (36.4-46.3) fL RDW Coeff of Cole (11.5-14.5) % Plt Count (130-400) K/uL MPV (7.4-10.4) fL Immature Gran % (Auto) % Neut % (Auto) % Lymph % (Auto) % [place] % (Auto) % Eos % (Auto) % Baso % (Auto) % Neut # (Auto) (1.4-6.5) K/uL Lymph # (Auto) (1.2-3.4) K/uL [place] # (Auto) (0.11-0.59) K/uL Eos # (Auto) (0-0.5) K/uL Baso # (Auto) (0-0.2) K/uL Immature Gran # (Auto) (0.00-0.02) K/uL Sodium (136-145) mmol/L Potassium Chloride (98-107) mmol/L Carbon Dioxide (21-32) mmol/L Anion Gap (3-11) BUN (6-23) mg/dl Creatinine (0.6-1.4) mg/dl Est Cr Clr Drug Dosing ml/min Est GFR ( Amer) ml/min Est GFR (Non-Af Amer) ml/min BUN/Creatinine Ratio (10-20) Glucose (70-99(Fasting)) mg/dl Osmolality (280-300) mOsm/kg Calcium (8.5-10.1) mg/dl Total Bilirubin (0.2-1.0) mg/dl AST ALT (7-52) U/L Alkaline Phosphatase (34-104) U/L Total Protein (6.0-8.3) gm/dl Albumin (3.4-5.0) gm/dl Globulin (2.5-4.0) gm/dl Albumin/Globulin Ratio (0.9-2) Urine Osmolality 205 L (500-800) mOsm/kg Urine Sodium 12 mmol/L Urine Potassium 10.2 mmol/L Urine Chloride < 15 mmol/L Ethyl Alcohol mg/dL (<10.0) mg/dl SARS-CoV-2, RNA, NAAT (NEGATIVE) Administered Medications Thiamine HCl 100 mg/ Syringe 10 mls @ 2 mls/min IV QAM FILOMENA Stop: 11/05/21 23:32 Last Admin: 10/07/21 00:47 Dose: 2 mls/min Documented by: [id number] Folic Acid 1 mg/ Syringe 10 mls @ 5 mls/min IV QAM FILOMENA Stop: 11/05/21 23:32 Last Admin: 10/07/21 00:46 Dose: 5 mls/min Documented by: [id number] Discontinued Medications Gabapentin (Gabapentin 600 Mg Tab) 1,200 mg PO NOW ONE Stop: 10/06/21 23:34 Last Admin: 10/07/21 00:47 Dose: 1,200 mg Documented by: [id number] Multivitamins 10 ml/ Thiamine HCl 100 mg/ Folic Acid 1 mg/Sodium Chloride 1,011.2 mls @ 500 mls/hr IV .Q2H2M ONE Stop: 10/06/21 22:06 Last Infusion: 10/06/21 23:06 Dose: 0 mls/hr Documented by: [id number] Admin: 10/06/21 20:39 Dose: 500 mls/hr Documented by: [id number] Imaging Data Radiologist's Impression: Cervical Spine CT 10/06/21 18:15 CT SCAN OF THE CERVICAL SPINE CLINICAL HISTORY: Fall. Intoxication. COMPARISON STUDY: CT of the cervical spine dated 12/26/2019. TECHNIQUE: CT scan of the cervical spine is performed from the skull base to the upper thoracic spine. Images are reviewed in the axial, sagittal, and coronal planes. IV contrast was not administered for this examination. A dose lowering technique was utilized adhering to the principles of ALARA. FINDINGS: Skeletal structures: The skeletal structures are osteopenic. There is no evidence of fracture or subluxation involving the cervical spine. Vertebral body height and alignment are maintained. There is straightening of the cervical lordosis. Anterior osteophytes are seen throughout. The odontoid process and lateral masses are intact. The atlantoaxial articulation is preserved noting mild productive degenerative change. 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 This is unchanged from 2019. The remaining spinous processes are intact. There is mild multilevel cervical spondylosis. Facet arthropathy is seen at several levels. Intervertebral discs: There is mild disc space narrowing seen throughout the cervical spine, greatest at C5-C6 and C6-C7. Central canal: Grossly patent. Soft tissues: The prevertebral and paraspinous soft tissues are within normal limits. There is atherosclerotic calcification of the carotid bulbs. Calvarium: The visualized calvarium at the skull base appears intact. Brain parenchyma: Partially visualized brain parenchyma at the skull base is within normal limits. Sinuses and mastoids: The visualized paranasal sinuses are clear. The mastoid air cells are well pneumatized. Lung apices: Clear as visualized. IMPRESSION: 1. There is no evidence of fracture or subluxation involving the cervical spine. 2. Osteopenia and spondylotic change as above. ACT 112: Negative or not required by law. Electronically signed by: Darren Delgadillo M.D. 10/06/2021 8:[address] 10/06/21 18:15 CT SCAN OF THE BRAIN WITHOUT IV CONTRAST CLINICAL HISTORY: Fall. Intoxication. COMPARISON STUDY: CT of the brain dated 12/26/2019. TECHNIQUE: Unenhanced axial CT scan of the brain is performed from the vertex to the skull base. A dose lowering technique was utilized adhering to the principles of ALARA. CT DOSE: 1036.06 mGy.cm FINDINGS: Brain parenchyma: There are age-related involutional changes noting mild subcortical and periventricular microangiopathic change. There is no hemorrhage, mass effect, or evidence of acute territorial ischemia by CT criteria. A chronic lacunar infarct is noted in the left basal ganglia. Hicks-white matter di fferentiation is preserved. No extra-axial fluid collection is seen. Ventricles, sulci, cisterns: Prominent secondary to involutional change. Intracranial vasculature: There is atherosclerotic calcification of the cavernous carotid and vertebral arteries. Calvarium: The skeletal structures are osteopenic. No depressed calvarial fracture is identified. Sinuses and mastoids: There is evidence of previous paranasal sinus surgery. The visualized paranasal sinuses are clear. The mastoid air cells are well pneumatized. Orbits: The bony orbits are grossly intact. IMPRESSION: There is no hemorrhage, mass effect, or evidence of acute territorial ischemia by CT criteria. ACT 112: Negative or not required by law. Electronically signed by: Darren Delgadillo M.D. 10/06/2021 7:57 PM Discharge Plan Visit Data Chief Complaint: Alcohol Intoxication Stated Complaint: ETOH, AMS ED Provider: Jaskaran Bliss Discharge Problem: Acute hyponatremia, Fall, Alcohol abuse Patient Disposition: Admitted As Inpatient Discharge Instructions Interventions: ED Discharge Assessment Last Done: 10/06/21 23:00
[2021-10-06 18:49] LABS: Basophils # (auto) 0.03 K/uL (0-0.2); Basophils % (auto) 0.5 %; Eosinophils # (auto) 0.23 K/uL (0-0.5); Eosinophils % (auto) 3.7 %; Hematocrit (blood only) 40.2 % (42-52); Hemoglobin 14.5 g/dL (14.0-18.0); Immature Granulocytes # (auto) 0.02 K/uL (0.00-0.02); Immature Granulocytes % (auto) 0.3 %; Lymphocytes # (auto) 2.19 K/uL (1.2-3.4); Lymphocytes % (auto) 35.4 %; Mean Corpuscular Hemoglobin 30.3 pg (25-34); Mean Corpuscular Hgb Conc 36.1 g/dL (32-36); Mean Corpuscular Volume 83.9 fL (80-100); Mean Platelet Volume 10.7 fL (7.4-10.4); Monocytes # (auto) 0.81 K/uL (0.11-0.59); Monocytes % (auto) 13.1 %; Platelet Count 191 K/uL (130-400); RDW Coefficient of Variation 13.5 % (11.5-14.5); RDW Standard Deviation 41.5 fL (36.4-46.3); Red Blood Count 4.79 M/uL (4.7-6.1); White Blood Count 6.18 K/uL (4.8-10.8)
[2021-10-06 19:19] LABS: Alanine Aminotransferase 17 U/L (7-52); Albumin Globulin Ratio 1.1 (0.9-2); Albumin Level 4.1 gm/dl (3.4-5.0); Alkaline Phosphatase 77 U/L (34-104); Anion Gap 11 (3-11); BUN Creatinine Ratio 28.6 (10-20); Bilirubin,Total 0.5 mg/dl (0.2-1.0); Blood Urea Nitrogen 26 mg/dl (6-23); Calcium 8.6 mg/dl (8.5-10.1); Carbon Dioxide 17 mmol/L (21-32); Chloride 92 mmol/L (98-107); Creatinine Clr Calc Pharmacy 81.8 ml/min; Est GFR (African American) 98.6 ml/min; Est GFR (Non-African American) 85.1 ml/min; Globulin 3.6 gm/dl (2.5-4.0); Glucose 106 mg/dl (70-99(Fasting)); Sodium 120 mmol/L (136-145); Total Protein 7.7 gm/dl (6.0-8.3)
--- NOTE | 2021-10-06 20:00 | CT Scan Report ---
CT SCAN OF THE BRAIN WITHOUT IV CONTRAST CLINICAL HISTORY: Fall. Intoxication. COMPARISON STUDY: CT of the brain dated 12/26/2019. TECHNIQUE: Unenhanced axial CT scan of the brain is performed from the vertex to the skull base. A do se lowering technique was utilized adhering to the principles of ALARA. CT DOSE: 1036.06 mGy.cm FINDINGS: Brain parenchyma: There are age-related involutional changes noting mild subcortical and periventric ular microangiopathic change. There is no hemorrhage, mass effect, or evidence of acute territorial i schemia by CT criteria. A chronic lacunar infarct is noted in the left basal ganglia. Hicks-white doug er differentiation is preserved. No extra-axial fluid collection is seen. Ventricles, sulci, cisterns: Prominent secondary to involutional change. Intracranial vasculature: There is atherosclerotic calcification of the cavernous carotid and vertebr al arteries. Calvarium: The skeletal structures are osteopenic. No depressed calvarial fracture is identified. Sinuses and mastoids: There is evidence of previous paranasal sinus surgery. The visualized paranasal sinuses are clear. The mastoid air cells are well pneumatized. Orbits: The bony orbits are grossly intact. IMPRESSION: There is no hemorrhage, mass effect, or evidence of acute territorial ischemia by CT crit eria. ACT 112: Negative or not required by law. Electronically signed by: Darren Delgadillo M.D. 10/06/2021 7:57 PM
--- NOTE | 2021-10-06 20:02 | CT Scan Report ---
CT SCAN OF THE CERVICAL SPINE CLINICAL HISTORY: Fall. Intoxication. COMPARISON STUDY: CT of the cervical spine dated 12/26/2019. TECHNIQUE: CT scan of the cervical spine is performed from the skull base to the upper thoracic spine . Images are reviewed in the axial, sagittal, and coronal planes. IV contrast was not administered fo r this examination. A dose lowering technique was utilized adhering to the principles of ALARA. FINDINGS: Skeletal structures: The skeletal structures are osteopenic. There is no evidence of fracture or subl uxation involving the cervical spine. Vertebral body height and alignment are maintained. There is st raightening of the cervical lordosis. Anterior osteophytes are seen throughout. The odontoid process and lateral masses are intact. The atlantoaxial articulation is preserved noting mild productive dege nerative change. 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 This is unc hanged from 2019. The remaining spinous processes are intact. There is mild multilevel cervical spond ylosis. Facet arthropathy is seen at several levels. Intervertebral discs: There is mild disc space narrowing seen throughout the cervical spine, greatest at C5-C6 and C6-C7. Central canal: Grossly patent. Soft tissues: The prevertebral and paraspinous soft tissues are within normal limits. There is athero sclerotic calcification of the carotid bulbs. Calvarium: The visualized calvarium at the skull base appears intact. Brain parenchyma: Partially visualized brain parenchyma at the skull base is within normal limits. Sinuses and mastoids: The visualized paranasal sinuses are clear. The mastoid air cells are well pneu matized. Lung apices: Clear as visualized. IMPRESSION: 1. There is no evidence of fracture or subluxation involving the cervical spine. 2. Osteopenia and spondylotic change as above. ACT 112: Negative or not required by law. Electronically signed by: Darren Delgadillo M.D. 10/06/2021 8:01 PM
[2021-10-06] MEDS ORDERED: MULTI-VITAMIN INFUSION 10 ML, THIAMINE HCL 100 MG, FOLIC ACID 1 MG in SODIUM CHLORIDE 0... IV ONE (20:05)
[2021-10-06 20:49] LABS: Potassium 3.9 mmol/L (3.5-5.1)
[2021-10-06] MEDS ORDERED: GABAPENTIN 1200MG ALCOHOL WITHDRAWAL LOAD PO STA (22:22)
[2021-10-06 22:55] LABS: Urine Chloride < 15 mmol/L; Urine Potassium 10.2 mmol/L; Urine Sodium 12 mmol/L
[2021-10-06] MEDS ORDERED: ONDANSETRON INJ 2 MG/ML 2 ML VIAL IV PRN (23:33)
[2021-10-06] MEDS ORDERED: NITROGLYCERIN SL 0.4 MG/TAB TAB SL PRN (23:33)
[2021-10-06] MEDS ORDERED: ATIVAN IV ALCOHOL WITHDRAWL IV PRN (23:33)
[2021-10-06] MEDS ORDERED: LORazepam 2 MG/1 ML VIAL IV PRN ×3 (23:33)
[2021-10-06] MEDS ORDERED: GABAPENTIN 600 MG TAB PO ONE (23:33)
[2021-10-06] MEDS ORDERED: ALBUTEROL 0.083% NEBU SOLN 3 ML VIAL INH PRN (23:33)
[2021-10-06 23:41] LABS: BUN Creatinine Ratio 24.7 (10-20); Calcium 8.2 mg/dl (8.5-10.1); Creatinine Clr Calc Pharmacy 87.5 ml/min; Est GFR (African American) 102.3 ml/min; Est GFR (Non-African American) 88.3 ml/min; Potassium 3.6 mmol/L (3.5-5.1)
[2021-10-06] MEDS ORDERED: GLUCAGON FOR INJ 1 MG VIAL IM PRN (23:45)
[2021-10-06] MEDS ORDERED: DEXTROSE 50% 50 ML SYRINGE IV PRN (23:45)
[2021-10-06] MEDS ORDERED: GLUCOSE 10 TABS/TUBE PO PRN (23:45)
[2021-10-06] MEDS ORDERED: GLUCOSE 40% GEL 15 GM TUBE PO PRN (23:45)
[2021-10-06] MEDS ORDERED: CARBOHYDRATES FOR HYPOGLYCEMIA PO PRN (23:45)
[2021-10-06] MEDS ORDERED: ALUMINUM/MAGNESIUM/SIMETH (MAALOX MAX) 30 ML UDC PO PRN (23:55)
[2021-10-07] MEDS: FOLIC ACID 1 MG in SYRINGE 9.8 ML IV SCH ×2 (00:46→07:59)
[2021-10-07] MEDS: THIAMINE HCL 100 MG in SYRINGE 9 ML IV SCH ×2 (00:47→07:59)
--- NOTE | 2021-10-07 01:03 | History and Physical Report ---
DATE OF ADMISSION: 10/06/2021. CHIEF COMPLAINT: Fall, hyponatremia. HISTORY OF PRESENT ILLNESS: This is a 71-year-old male with past medical history significant type 2 diabetes, hyperlipidemia, COPD, asthma, chronic systolic CHF, nonobstructive CAD, chronic atrial fibrillation, history of paroxysmal supraventricular tachycardia, GERD, history of alcoholism, history of tobacco abuse, noncompliance with medication regimen. Comes with fall and alcoholism. The patient lives alone. He was found falling down by the neighbors and called his son and [id number] and EMS and he was brought in here. The patient is currently alert and awake, eating his dinner, sandwich. Labs showed sodium was 120, the alcohol level is 156. The patient says he drank about 10 cans of beer today. He drinks on some days more, some days less. Otherwise, he ambulates okay. Quit smoking many years ago. As per [id number], he is regularly taking his medications now. There is no swelling in the legs currently. The patient denies any headache. No dizziness, no blurred visions, no earache, no runny nose, no sore throat. Has some occasional cough. No chest pain, no shortness of breath, no nausea, no abdominal pain. Normal bowel and bladder movements. Hemodynamically stable. ALLERGIES: No known drug allergies. PAST MEDICAL HISTORY: As mentioned above. PAST SURGICAL HISTORY: Right bimalleolar ankle fracture repair, cardiac catheterization, cataract surgery. MEDICATIONS: The patient is on albuterol, Tylenol Extra Strength 1000 mg p.o. q. 6 hours p.r.n., albuterol 2.5 mg 2 puffs inhalation q. 4 hours p.r.n., atorvastatin 40 mg p.o. daily, Colace 100 mg p.o. daily, Eliquis 5 mg p.o. b.i.d., Jardiance 10 mg p.o. daily, Advair Diskus one inhalation b.i.d., Lasix 40 mg p.o. daily, gabapentin 100 mg p.o. daily, glipizide 10 mg p.o. b.i.d., metformin 500 mg p.o. b.i.d., metoprolol succinate 100 mg p.o. daily, ramipril 2.5 mg p.o. daily, spironolactone 25 mg p.o. daily. FAMILY HISTORY: Significant for brother had pancreatic cancer; mother had diabetes and lupus; sister has diabetes; father has MD. SOCIAL HISTORY: Former smoker, quit in 1995, smoked 1.5 packs a day for 30 years. Alcohol, as per Epic drinks five or so beers a day. No drug use. REVIEW OF SYSTEMS: As per HPI. Rest of the review of systems is negative. PHYSICAL EXAMINATION: GENERAL: The patient is of moderate build, not in acute distress. VITAL SIGNS: Temperature 37.1, pulse 89, respiratory rate 18, blood pressure 131/85, oxygen 95% on room air. HEENT: Pupils equal, round and reactive to light. Oral mucosa moist. NECK: No JVD, no neck masses. CARDIOVASCULAR: S1 and S2 heard. Regular rate and rhythm. No murmur, no gallop. RESPIRATORY SYSTEM: Normal AP diameter. No accessory muscle use. No wheezing, no crackles. ABDOMEN: Soft, bowel sounds present, nontender, no distention. CENTRAL NERVOUS SYSTEM: Cranial nerves II through XII are grossly intact, nonfocal. LUNGS: No lower extremity edema present. Mild erythematous changes in the feet. LABORATORY DATA: WBC 6.1, hemoglobin 14.5, hematocrit 40.2, platelets 191. Sodium 120, potassium 3.9, chloride 92, bicarbonate 17, BUN 26, creatinine 0.9, serum glucose 106, osmolality 301, calcium 8.6, total bilirubin 0.5, AST 24, ALT 17, alkaline phosphatase 77. Urine osmolality 205. Urine sodium 12, urine potassium 10.2, urine chloride less than 115. Ethyl alcohol 156. IMAGING DATA: CT of the head, no acute findings. Cervical spine CT, no acute findings. EKG: Atrial fibrillation, rate of 94, left anterior fascicular block. ASSESSMENT AND PLAN: This 71-year-old male presents with fall and found to have alcoholism and hyponatremia. 1. Fall: Mostly likely secondary to alcoholism. PT, OT when stable. 2. Hyponatremia: Sodium 120. Received banana bag. Recheck the sodium levels now and after that q. 4 hours with morning labs. Fluid restriction 1000 mL. Nephrology consulted and notified. Closely monitor in the tele floor. Slow correction of sodium. 3. Alcoholism: Alcohol is 156. Received banana bag in the ER. Will continue with gabapentin withdrawal protocol with IV Ativan p.r.n. and IV thiamine and IV folic acid. Will monitor for withdrawal. Needs counseling. 4. Chronic systolic congestive heart failure: Ejection fraction of 25%. Currently holding his Lasix and spironolactone. Continue his metoprolol succinate and ramipril. As per the family, the patient is supposed to get a cardiac catheterization and also lower extremity arterial study next week,and request for cardiology consult. Will consult cardiology in the a.m. 5. History of nonobstructive coronary artery disease: Continue his beta tosha, statin. 6. Chronic atrial fibrillation: Continue his Eliquis and beta tosha. 7. Diabetes: Hold his home p.o. medication. Placed him on Lantus 5 units b.i.d., insulin sliding scale. Follow the blood sugar, HbA1c, diet. 8. History of chronic obstructive pulmonary disease: Currently stable, on home inhalers. 9. Hyperlipidemia: Continue statin. 10. Deep venous thrombosis prophylaxis: On Eliquis. Addendum: Sodium in am labs 130. Started on d5w@75ml/hr and gave a dose of iv lasix 20mg. Follow bmp q4hrs. DISPOSITION: Closely monitor in the tele floor. Level 1 full code. PT/OT prior to discharge. Social service to help with discharge planning. Job ID: [id number] LOGAN
[2021-10-07] MEDS: GABAPENTIN 600 MG TAB PO SCH ×3 (05:43→21:18)
[2021-10-07 06:02] LABS: Basophils # (auto) 0.04 K/uL (0-0.2); Basophils % (auto) 0.7 %; Eosinophils # (auto) 0.14 K/uL (0-0.5); Eosinophils % (auto) 2.6 %; Hematocrit (blood only) 41.2 % (42-52); Hemoglobin 14.5 g/dL (14.0-18.0); Immature Granulocytes # (auto) 0.02 K/uL (0.00-0.02); Immature Granulocytes % (auto) 0.4 %; Lymphocytes # (auto) 1.85 K/uL (1.2-3.4); Lymphocytes % (auto) 34.3 %; Mean Corpuscular Hemoglobin 29.8 pg (25-34); Mean Corpuscular Hgb Conc 35.2 g/dL (32-36); Mean Corpuscular Volume 84.8 fL (80-100); Mean Platelet Volume 10.7 fL (7.4-10.4); Monocytes # (auto) 0.66 K/uL (0.11-0.59); Monocytes % (auto) 12.2 %; Neutrophils # (auto) 2.69 K/uL (1.4-6.5); Neutrophils % (auto) 49.8 %; Platelet Count 172 K/uL (130-400); RDW Coefficient of Variation 13.6 % (11.5-14.5); Red Blood Count 4.86 M/uL (4.7-6.1)
[2021-10-07 06:25] LABS: BUN Creatinine Ratio 22.1 (10-20); Calcium 8.8 mg/dl (8.5-10.1); Creatinine Clr Calc Pharmacy 77.3 ml/min; Est GFR (African American) 101.8 ml/min; Est GFR (Non-African American) 87.9 ml/min; Magnesium 2.3 mg/dl (1.7-2.4); Potassium 4.3 mmol/L (3.5-5.1)
[2021-10-07] MEDS ORDERED: FUROSEMIDE INJ 20 MG/2 ML VIAL IV STA (06:39)
[2021-10-07] MEDS ORDERED: DEXTROSE 5% 1,000 ML IV SCH (06:45)
[2021-10-07] MEDS ORDERED: LORazepam 0.5 MG TAB PO PRN (07:15)
[2021-10-07] MEDS: METOPROLOL SUCC 50MG EXT REL TAB PO SCH (07:59)
[2021-10-07] MEDS: ATORVASTATIN 40 MG TAB PO SCH (07:59)
[2021-10-07] MEDS: DOCUSATE SODIUM 100 MG CAP PO SCH (07:59)
[2021-10-07] MEDS: ENALAPRIL MALEATE 10 MG TAB PO SCH (08:00)
[2021-10-07] MEDS: INSULIN GLARGINE SOLOSTAR 100 UNITS/ML 3 ML PEN SC SCH ×2 (08:01→21:12)
[2021-10-07] MEDS: FLUTICASONE/VILANTEROL 200/25MCG 14 PUFFS/INHALER INH SCH (08:01)
[2021-10-07] MEDS: INSULIN ASPART PER UNIT SC SCH ×4 (08:20→21:17)
--- NOTE | 2021-10-07 08:41 | Cardiology Consultation ---
Date of Consultation October 07, 2021 Assessment & Plan (1) Chronic systolic congestive heart failure, NYHA class 2: (2) Non-ischemic cardiomyopathy: (3) CAD (coronary atherosclerotic disease): (4) PAD (peripheral artery disease): Chronic systolic CHF, LVEF 35-39%, NICM ? Tachycardic induced vs alcohol induced vs other. Recent EF on nuclear stress reduced further at 25%. Angina free. Euvolemic on exam. -Plans for upcoming cardiac cath and angiogram of the lower extremities as an outpatient. Spoke with Dr. Moreno- willing to do while inpatient. Patient in agreement. Eliquis held in anticipation for procedure. -Monitor I&O and daily weights, 2 g sodium diet. (5) Atrial fibrillation: Permanent atrial fib. Rate controlled. Asymptomatic. CHADSVASC score of 4 (age, CHF, HTN, CAD/PAD)- anticoagulated on Eliquis, frequent mechanical falls to due alcohol. - Continue BB therapy with metoprolol succinate 100 mg daily - Will need to reassess risk vs. benefit of anticoagulation prior to discharge. Patient is a high bleed risk. For now continue Eliquis 5 mg BID- currently on hold for possible procedure (6) Alcohol abuse: (7) Hyponatremia: (8) Fall: Hyponatremia likely in the setting of alcoholism. Will defer to primary team regarding lyte replacement and treatment to prevent withdraw symptoms. (9) HTN (hypertension): Controlled. No changes at this time. Case discussed with Dr. Golden. Supervising Physician Co-Signing Physician Notes Patient seen and examined with AARON Del Rio. Agree with findings and assessment as above. Will need to reassess risk vs. benefit of anticoagulation prior to discharge. Patient is a high bleed risk. For now continue Eliquis 5 mg BID- currently on hold for possible procedure. Pt already scheduled with Dr. Moreno for cardiac cath and LE angiogram next week, he and the patient are agreeable to perform this admission. Npo after midnight. History of Present Illness Reason for Consultation: Fall, HFrEF Requesting Physician: [facility] Hospitalist Attending Physician: Jagjit Johnson MD History of Present Illness 71 year old male. Presented to ED due to a fall due to alcoholism- states that he was drinking "budlight" 10 cans at the time of the fall. Labs showed hyponatremia- given a banana bag (NA 120>>126>>130). Otherwise renal function and CBC stable. The alcohol level was 156.He drinks on some days more, some d ays less per chart review. Lasix and Aldactone held. Follow with Dr. Bone and Jose Luis Bonilla PA-C as an outpatient. Saw Dr. Bone in august. Recent nuc was negative for ischemia, however EF further declined to 25%. ABIs were done showing moderate PAD in BL lower extremities. Patient will be having a cardiac catheterization and leg angio by Dr. Moreno next week. Tele: Afib PVCs, 80-90s EKG: afib 94 bpm Upon entrance into the room patient was sitting up in the chair without complaint. States that he doesn't know why he is here- he feels well. States that he falls frequently at home. Last fall per the patient was 2 months ago. States that he never feels dizziness, his legs just "give out". States that he never hits his head. He is on Eliquis for atrial fibrillation. No chest pain, no shortness of breath. No palpitations or syncope. No orthopnea, PND, or increased lower extremity edema. Denies any abnormal bleeding. PROBLEM LIST: -Chronic systolic CHF, LVEF 35-39%, NICM ? Tachycardic induced vs alcohol induced vs other -Mild non obstructive CAD per cath 2008 -PAD -Chronic alcohol abuse -Chronic hyponatremia -Persistent atrial fibrillation, on Eliquis -PSVT -HLD -DM2 -COPD/Asthma -GERD -H/o Tobacco abuse Allergies Allergy/AdvReac Type Severity Reaction Status Date / Time No Known Allergies Allergy Verified 10/06/21 20:35 Home Medications Medication Instructions Recorded Confirmed Type apixaban 5 mg tablet (Eliquis) 5 mg PO BID 11/25/20 10/06/21 History atorvastatin 40 mg tablet 40 mg PO DAILY 11/25/20 10/06/21 History metformin 500 mg tablet,extended 500 mg PO BID 11/25/20 10/06/21 History release 24 hr acetaminophen 500 mg tablet 1,000 mg PO Q6H PRN 08/22/21 10/06/21 History (Tylenol Extra Strength) albuterol sulfate 2.5 mg INHALATION Q4H PRN 08/22/21 10/06/21 History albuterol sulfate 90 mcg/actuation 2 puff INHALATION Q4H PRN 08/22/21 10/06/21 History aerosol inhaler aluminum-mag hydroxide-simethicone 15 ml PO Q6H PRN 08/22/21 10/06/21 History 200 mg-200 mg-20 mg/5 mL oral susp bismuth subsalicylate 525 mg/15 mL 525 mg PO QID PRN 08/22/21 10/06/21 History oral suspension docusate sodium 100 mg capsule 100 mg PO DAILY 08/22/21 10/06/21 History fluticasone 250 mcg-salmeterol 50 1 inh INHALATION BID 08/22/21 10/06/21 History mcg/dose blistr powdr for inhalation (Advair Diskus) metoprolol succinate 100 mg 100 mg PO DAILY 08/22/21 10/06/21 History tablet,extended release 24 hr empagliflozin 10 mg tablet 10 mg PO DAILY #30 tab 08/26/21 10/06/21 Rx (Jardiance) furosemide 20 mg tablet 40 mg PO DAILY #60 tab 08/26/21 10/06/21 Rx spironolactone 25 mg tablet 25 mg PO DAILY #30 tab 08/26/21 10/06/21 Rx glipizide 10 mg tablet 10 mg PO BID 10/05/21 10/06/21 History gabapentin 100 mg capsule 100 mg PO TID 10/06/21 10/06/21 History ramipril 2.5 mg capsule 2.5 mg PO DAILY 10/06/21 10/06/21 History Patient History Medical History Alcohol abuse Alcohol abuse Anxiety Atrial fibrillation Atrial fibrillation CHF (congestive heart failure) CKD (chronic kidney disease), stage III COPD (chronic obstructive pulmonary disease) COPD (chronic obstructive pulmonary disease) DM2 (diabetes mellitus, type 2) Elevated troponin Fracture dislocation of right ankle GERD (gastroesophageal reflux disease) History of left heart catheterization (LHC) "nonocclusive CAD, normal LV function" HLD (hyperlipidemia) HTN (hypertension) Hypervolemia Hypokalemia Left ventricular dysfunction Surgical History History of ankle surgery History of cardiac cath 2009-nonocclussive CAD Family History Brother Cancer pancreatic cancer Mother Diabetes Sister Diabetes Father Heart disease Social History Smoking Status: Former smoker Tobacco Type: Cigarettes Second Hand Exposure: No; Do You Dip or Chew Tobacco: No; Tobacco Cessation Education Requested by Patient: No Hx Alcohol Use: Yes Alcohol type: beer Hx Substance Use: No Preferred Language: Divehi Communication Ability: Effective Direct Entry Midwife Required: No Beliefs That Will Affect Care: None marital status: Unknown Current Living Situation: Alone How many Children do You have: 4 Other Information That Helps Us Care for You: No Feels Safe at Home: Yes Safety Concerns: Feels Safe At This Time Assistive Devices: Cane and Glasses Review of Systems Review of Systems: All systems reviewed & are unremarkable except as noted in HPI & below Physical Exam Physical Exam: General: no acute distress and stated age Eyes: conjunctiva are pink and non-injected, sclera clear Neck: normal jugular venous pulse, no hepatojugular reflux Chest: normal shape and normal respiratory effort Lungs: clear to auscultation , no rales rhonchi or wheezing Cardiac Exam: - irregular rhythm Abdomen: abdomen soft, non-tender, no abnormal masses and no hepatosplenomegaly Musculoskeletal: no gait disturbance, no weakness Extremities: No edema, left heel with focal ulceration, minimal skin breakdown Neuro: grossly normal exam Psych: appropriate affect and insight. Results & Data ([facility]) Vital Signs (Past 12 Hours) Vital Signs Temp Pulse Pulse Resp BP Pulse Ox 10/07/21 07:10 36.8 C 88 20 156/76 H 95 10/07/21 04:23 36.4 C L 82 18 143/89 H 97 10/06/21 23:33 36.4 C L 93 H 18 163/90 H 96 10/06/21 23:29 101 H 10/06/21 21:00 89 18 131/85 95 Laboratory Results Cardiac Enzymes 10/06/21 10/06/21 Range/Units 18:40 20:05 AST TNP 24 CBC 10/06/21 10/07/21 Range/Units 18:40 05:23 WBC 6.18 5.40 (4.8-10.8) K/uL RBC 4.79 4.86 (4.7-6.1) M/uL Hgb 14.5 14.5 (14.0-18.0) g/dL Hct 40.2 L 41.2 L (42-52) % Plt Count 191 172 (130-400) K/uL Neut # (Auto) 2.90 2.69 (1.4-6.5) K/uL Lymph # (Auto) 2.19 1.85 (1.2-3.4) K/uL [place] # (Auto) 0.81 H 0.66 H (0.11-0.59) K/uL Eos # (Auto) 0.23 0.14 (0-0.5) K/uL Baso # (Auto) 0.03 0.04 (0-0.2) K/uL Comprehensive Metabolic Panel 10/06/21 10/06/21 10/06/21 Range/Units 18:40 20:05 22:55 Sodium 120 L 126 L (136-145) mmol/L Potassium TNP 3.9 3.6 Chloride 92 L 97 L (98-107) mmol/L Carbon Dioxide 17 L 18 L (21-32) mmol/L BUN 26 H 21 (6-23) mg/dl Creatinine 0.91 0.85 (0.6-1.4) mg/dl Glucose 106 H 194 H (70-99(Fasting)) mg/dl Calcium 8.6 8.2 L (8.5-10.1) mg/dl AST TNP 24 ALT 17 (7-52) U/L Alkaline Phosphatase 77 (34-104) U/L Total Protein 7.7 (6.0-8.3) gm/dl Albumin 4.1 (3.4-5.0) gm/dl 10/07/21 10/07/21 Range/Units 05:23 08:59 Sodium 130 L 128 L (136-145) mmol/L Potassium 4.3 4.2 Chloride 102 98 (98-107) mmol/L Carbon Dioxide 22 23 (21-32) mmol/L BUN 19 20 (6-23) mg/dl Creatinine 0.86 0.96 (0.6-1.4) mg/dl Glucose 132 H 227 H (70-99(Fasting)) mg/dl Calcium 8.8 9.2 (8.5-10.1) mg/dl AST ALT (7-52) U/L Alkaline Phosphatase (34-104) U/L Total Protein (6.0-8.3) gm/dl Albumin (3.4-5.0) gm/dl Intake and Output 10/06/21 10/07/21 10/07/21 22:59 06:59 14:59 Intake Total 1431.2 / 1431.2 Output Total 1000 / 1000 700 / 700 Balance 431.2 / 431.2 -700 / -700 Intake: IV 1011.2 / 1011.2 Multi-Vitamin Infusion 10 ml 1011.2 / 1011.2 Thiamine HCl 100 mg Folic Acid 1 mg In Sodium Chloride 0.9% 1000ML 1,000 ml @ 500 mls/hr IV .Q2H2M ONE Rx#:[id number] Oral 420 / 420 Output: Urine 1000 / 1000 700 / 700 Other: # Unmeasured Voids 3 Weight 88.7 kg 80.9 kg Weight Measurement Method Built in Bedscale Standing Scale Diagnostic Findings Nuclear stress 09/07/2021 Compared to previous study of 01/04/21: LV systolic function has declined and is now severely reduced at 29%. A combined low intensity exercise/pharmacologic myocardial perfusion imaging study revealed normal perfusion without evidence of infarct or ischemia. The stress EKG response was negative for ischemia. Atrial fibrillation persisted throughout the study, with frequent PVCs noted on the stress EKG. Gated SPECT imaging revealed severe diffuse left ventricular hypokinesis, with calculated left ventricular ejection fraction= 29% (moderately reduced) (1) Fall Encounter type: initial encounter Qualified Code(s): W19.XXXA - Unspecified fall, initial encounter
[2021-10-07] MEDS ORDERED: APIXABAN 5 MG TABLET PO SCH (09:00)
[2021-10-07] MEDS ORDERED: GABAPENTIN 100 MG CAP PO SCH (09:00)
[2021-10-07 09:37] LABS: BUN Creatinine Ratio 20.8 (10-20); Calcium 9.2 mg/dl (8.5-10.1); Creatinine Clr Calc Pharmacy 69.3 ml/min; Est GFR (African American) 92.4 ml/min; Est GFR (Non-African American) 79.8 ml/min; Potassium 4.2 mmol/L (3.5-5.1)
[2021-10-07 10:27] LABS: Estimated Average Glucose 203 mg/dl; Hemoglobin A1C 8.7 % (4.5-5.6)
--- NOTE | 2021-10-07 11:51 | Hospitalist Progress Note ---
Date of Service October 07, 2021 Assessment & Plan (1) Fall: Plan: per Dr. Wiley's notes with addendum: 1. s/p Mechanical Fall: Mostly likely secondary to alcoholism, Hyponatremia - management per below - PT, OT 2. Hyponatremia: - Sodium 120. Received banana bag. - Sodium 130 D5w ordered - Nephro consulted monitor Na closely 3. Alcoholism: - Alcohol is 156. Received banana bag in the ER. Will continue with gabapentin withdrawal protocol with IV Ativan p.r.n. and IV thiamine and IV folic acid. - no signs of overt withdrawal counseled on alcohol cessation 4. Chronic systolic congestive heart failure: Ejection fraction of 25%. Currently holding his Lasix and spironolactone. Continue his metoprolol succinate and ramipril. As per the family, the patient is supposed to get a cardiac catheterization and also lower extremity arterial study next week,and request for cardiology consult. - no signs of overt volume overload - Product Responsibility Liaison consutled 5. History of nonobstructive coronary artery disease: Continue his beta tosha, statin. 6. Chronic atrial fibrillation: Continue his Eliquis and beta tosha. 7. Diabetes: Hold his home p.o. medication. Placed him on Lantus 5 units b.i.d., insulin sliding scale. Follow the blood sugar, HbA1c, diet. 8. History of chronic obstructive pulmonary disease: Currently stable, on home inhalers. 9. Hyperlipidemia: Continue statin. 10. Deep venous thrombosis prophylaxis: On Eliquis. DISPOSITION: Closely monitor in the tele floor. Level 1 full code. PT/OT prior to discharge. Social service to help with discharge planning. Admission and Anticipated Discharge Date Admission Date: October 06, 2021 Subjective ff up for s/p mechanical fall, alcoholism, hyponatremia, etc seen resting in chair, comfortable states he feels fine overall denies any pain in his body no anxiety, tremors, confusion, hallucinations no chest pain, dyspnea, palpitations, dizziness no other symptoms Review of Systems Review of Systems: all noted and negative except for above Physical Exam Physical Exam: General- oriented x 3, not in distress, speaks in sentences with no effort or accessory muscle use Head- atraumatic Eyes- PERRL, EOMI, anicteric ENT- oropharynx clear Neck- supple, no JVD, no adenopathy, no thyromegaly; carotids +2/2, no bruits appreciated Lungs- clear to auscultation bilaterally, no rales/wheezes Heart- normal rate, regular rhythm; no murmur, no gallop, no rub appreciated Abdomen- normal bowel sounds, nondistended, soft, nontender, no masses or hepatosplenomegaly Extremities- no pretibial edema, no calf tenderness; peripheral pulses intact no tremors Neuro- alert, oriented x 3; CN 2-12 grossly intact; motor 5/5 bilaterally;sensation 100% on all extremities; no other gross focal neurologic deficits Skin- warm & dry Results & Data Results & Data ([facility]) Vital Signs (Past 12 Hours) Vital Signs Temp Pulse Resp BP Pulse Ox 10/07/21 11:23 100 H 99/57 L 10/07/21 11:22 36.3 C L 89 18 96/61 L 95 10/07/21 07:10 36.8 C 88 20 156/76 H 95 10/07/21 04:23 36.4 C L 82 18 143/89 H 97 all noted and reviewed including below (1) Fall Encounter type: initial encounter Qualified Code(s): W19.XXXA - Unspecified fall, initial encounter
[2021-10-07 13:40] LABS: BUN Creatinine Ratio 18.9 (10-20); Creatinine Clr Calc Pharmacy 50.4 ml/min; Est GFR (African American) 62.9 ml/min; Est GFR (Non-African American) 54.3 ml/min; Potassium 4.9 mmol/L (3.5-5.1)
--- NOTE | 2021-10-07 18:15 | Nephrology Consultation ---
Date of Consultation October 07, 2021 Assessment & Plan (1) Hyponatremia: hypertonic hyponatremia in the setting of EtOH intoxication which explains elevated serum osms. his presenting labs are most consistent with polydipsia. no prior hx of hyponatremia as OP. -goal sNa for this evening is 126-f/u pending labs -for now continue D5W pending repeat labs -low threshold to resume lasix as needed but hold spironolactone at least initially -recheck bmp q4-8 hrs -maintain eukalemia -STRICT I/O -daily STANDING weight -for now continue FR 1L daily; may be able to liberalize to 1.2L (2) Chronic systolic congestive heart failure, NYHA class 2: worsening HF on recent OP studies -no evidence that low Na reflects HF or vol OL History of Present Illness Reason for Consultation: hyponatremia Requesting Physician: Dr Wiley Attending Physician: Jagjit Johnson MD History of Present Illness 71 y/o M whom I'm asked to see for hyponatremia was admitted overnight for same after a fall at home in the setting of alcohol abuse. PMH includes DM2, chronic systolic HF EF 25%, CAD, chronic AF, COPD, tobacco abuse, hx of nonadherence to med regimen. He presented w/ SNa 120, osms 310; EtOH 156. He had a banana bag in ER and was started on FR 1L daily; sodium rebounded quickly to 130 within 10 hrs. He was started on D5W and it came down to 128 by 0900 w/ K 4.2. lasix and spironolactone are on hold, though he did have a one-time dose of 20 mg IV Lasix this morning prior to follow-up labs. His enalapril and gabapentin have been continued Cardiology is following. At recent OP nuclear stress test his EF was noted to have worsened further to 25%, so OP cardiac cath and BLE angiogram was planned. Pt now will have this done as IP after medical optimization. The patient denies shortness of breath, tremors, chest pain or palpitations, uncontrolled musculoskeletal pain, nausea vomiting diarrhea, lightheadedness or dizziness, dysuria or gross hematuria. Allergies Allergy/AdvReac Type Severity Reaction Status Date / Time No Known Allergies Allergy Verified 10/06/21 20:35 Home Medications Medication Instructions Recorded Confirmed Type apixaban 5 mg tablet (Eliquis) 5 mg PO BID 11/25/20 10/06/21 History atorvastatin 40 mg tablet 40 mg PO DAILY 11/25/20 10/06/21 History metformin 500 mg tablet,extended 500 mg PO BID 11/25/20 10/06/21 History release 24 hr acetaminophen 500 mg tablet 1,000 mg PO Q6H PRN 08/22/21 10/06/21 History (Tylenol Extra Strength) albuterol sulfate 2.5 mg INHALATION Q4H PRN 08/22/21 10/06/21 History albuterol sulfate 90 mcg/actuation 2 puff INHALATION Q4H PRN 08/22/21 10/06/21 History aerosol inhaler aluminum-mag hydroxide-simethicone 15 ml PO Q6H PRN 08/22/21 10/06/21 History 200 mg-200 mg-20 mg/5 mL oral susp bismuth subsalicylate 525 mg/15 mL 525 mg PO QID PRN 08/22/21 10/06/21 History oral suspension docusate sodium 100 mg capsule 100 mg PO DAILY 08/22/21 10/06/21 History fluticasone 250 mcg-salmeterol 50 1 inh INHALATION BID 08/22/21 10/06/21 History mcg/dose blistr powdr for inhalation (Advair Diskus) metoprolol succinate 100 mg 100 mg PO DAILY 08/22/21 10/06/21 History tablet,extended release 24 hr empagliflozin 10 mg tablet 10 mg PO DAILY #30 tab 08/26/21 10/06/21 Rx (Jardiance) furosemide 20 mg tablet 40 mg PO DAILY #60 tab 08/26/21 10/06/21 Rx spironolactone 25 mg tablet 25 mg PO DAILY #30 tab 08/26/21 10/06/21 Rx glipizide 10 mg tablet 10 mg PO BID 10/05/21 10/06/21 History gabapentin 100 mg capsule 100 mg PO TID 10/06/21 10/06/21 History ramipril 2.5 mg capsule 2.5 mg PO DAILY 10/06/21 10/06/21 History Patient History Medical History (Updated 10/07/21 @ 18:10 by Mojgan Morrow MD, PhD) Alcohol abuse Alcohol abuse Anxiety Atrial fibrillation Atrial fibrillation CHF (congestive heart failure) COPD (chronic obstructive pulmonary disease) COPD (chronic obstructive pulmonary disease) DM2 (diabetes mellitus, type 2) Elevated troponin Fracture dislocation of right ankle GERD (gastroesophageal reflux disease) History of left heart catheterization (LHC) "nonocclusive CAD, normal LV function" HLD (hyperlipidemia) HTN (hypertension) Hypervolemia Left ventricular dysfunction Surgical History History of ankle surgery History of cardiac cath 2009-nonocclussive CAD Family History Brother Cancer pancreatic cancer Mother Diabetes Sister Diabetes Father Heart disease Social History Smoking Status: Former smoker Tobacco Type: Cigarettes Second Hand Exposure: No; Do You Dip or Chew Tobacco: No; Tobacco Cessation Education Requested by Patient: No Hx Alcohol Use: Yes Alcohol type: beer Hx Substance Use: No Preferred Language: Indonesian Communication Ability: Effective Yarn Comber Required: No Beliefs That Will Affect Care: None marital status: Unknown Current Living Situation: Alone How many Children do You have: 4 Other Information That Helps Us Care for You: No Feels Safe at Home: Yes Safety Concerns: Feels Safe At This Time Assistive Devices: Cane and Glasses Review of Systems Review of Systems: All systems reviewed & are unremarkable except as noted in HPI & below Physical Exam Constitutional: well developed, well nourished, + disheveled (Slight) and cooperative; no acute distress Eyes: EOM intact bilaterally ENMT: Ears: no external ear abnormality Nose: no external nose abnormality Mouth: + dry oral mucous membranes Neck: no nuchal rigidity Respiratory: normal respiratory effort Auscultation: + diminished lung sounds Gastrointestinal (Abdomen): Inspection/Auscultation: normal bowel sounds Percussion/Palpation: abdomen soft; abdomen nontender Musculoskeletal: Extremities: strength 5/5 throughout Skin: no rashes, warm and dry Limbs bilateral lower with chronic venous stasis changes Neurologic: keys, fluent speech, no tremor Psychiatric: Orientation: oriented to person, oriented to place and + guarded Speech: + abnormal rate/rhythm/volume of speech (Limited and somewhat reluctant to speak) Affect: + blunted affect Results & Data ([facility]) Vital Signs (Past 12 Hours) Vital Signs Temp Pulse Pulse Resp BP Pulse Ox 10/07/21 15:37 36.5 C 62 18 113/71 93 10/07/21 14:37 97 10/07/21 12:00 80 10/07/21 11:23 100 H 99/57 L 10/07/21 11:22 36.3 C L 89 18 96/61 L 95 10/07/21 07:10 36.8 C 88 20 156/76 H 95 Laboratory Results 10/07/21 05:23 Last basic metabolic panel reviewed
[2021-10-07 18:36] LABS: BUN Creatinine Ratio 20.4 (10-20); Calcium 8.7 mg/dl (8.5-10.1); Creatinine Clr Calc Pharmacy 43.8 ml/min; Est GFR (Non-African American) 45.8 ml/min; Potassium 4.3 mmol/L (3.5-5.1)
[2021-10-07 21:25] LABS: BUN Creatinine Ratio 22.6 (10-20); Creatinine Clr Calc Pharmacy 41.8 ml/min; Est GFR (African American) 50.2 ml/min; Est GFR (Non-African American) 43.3 ml/min; Potassium 4.6 mmol/L (3.5-5.1)
[2021-10-07] MEDS: ALBUTEROL HFA 8 GM INHALER INH PRN (22:00)
[2021-10-08] MEDS: GABAPENTIN 600 MG TAB PO SCH ×2 (06:01→12:44)
--- NOTE | 2021-10-08 06:01 | Electrocardiogram Report ---
Test Reason : Blood Pressure : / mmHG Vent. Rate : 094 BPM Atrial Rate : 092 BPM P-R Int : 000 ms QRS Dur : 116 ms QT Int : 370 ms P-R-T Axes : 000 -81 085 degrees QTc Int : 462 ms Atrial fibrillation Left anterior fascicular block Septal infarct (cited on or before 22-AUG-2021) Nonspecific T wave abnormality Abnormal ECG When compared with ECG of 23-AUG-2021 08:18, Left anterior fascicular block is now Premature ventricular complexes are no longer Present Nonspecific T wave abnormality no longer evident in Inferior leads Confirmed by Martinez Gates ([id number]) on 10/08/2021 6:00:39 AM Referred By: REFERRED SELF Confirmed By:Martinez Gates
[2021-10-08 07:14] LABS: BUN Creatinine Ratio 24.6 (10-20); Calcium 8.9 mg/dl (8.5-10.1); Creatinine Clr Calc Pharmacy 51.2 ml/min; Est GFR (African American) 64.1 ml/min; Est GFR (Non-African American) 55.3 ml/min
--- NOTE | 2021-10-08 08:04 | Cardiology Progress Note ---
Date of Service October 08, 2021 Assessment & Plan (1) Chronic systolic congestive heart failure, NYHA class 2: (2) Non-ischemic cardiomyopathy: (3) CAD (coronary atherosclerotic disease): (4) PAD (peripheral artery disease): Plan: Chronic systolic CHF, LVEF 35-39%, NICM ? Tachycardic induced vs alcohol induced vs other. Recent EF on nuclear stress reduced further at 25%. Angina free. Euvolemic on exam. -Plans for upcoming cardiac cath and angiogram of the lower extremities as an outpatient. Spoke with Dr. Moreno, plans to continue with testing for Monday Patient did eat breakfast this am- unable to proceed with testing as an inpatient today. -Monitor I&O and daily weights, 2 g sodium diet. (5) Atrial fibrillation: Plan: Permanent atrial fib. Rate controlled. Asymptomatic. CHADSVASC score of 4 (age, CHF, HTN, CAD/PAD)- anticoagulated on Eliquis, frequent mechanical falls to due alcohol. - Continue BB therapy with metoprolol succinate 100 mg daily - For now okay to restart Eliquis 5 mg BID, if falls continue will need to reassess risk vs benefit of anticoagulation as an outpatient. Eliquis will need to be held 2 days (4 doses) prior to procedure on Monday. (6) Alcohol abuse: (7) Hyponatremia: (8) Fall: Plan: Hyponatremia likely in the setting of alcoholism. Will defer to primary team regarding lyte replacement and treatment to prevent withdraw symptoms. Appreciate nephrology input. (9) HTN (hypertension): Plan: Controlled. No changes at this time. Plan: Case discussed with Dr. Choe. From a cardiac standpoint- no further testing is necessary at this time. Stable from a cardiac standpoint for discharge. Will defer to primary team and nephro regarding lytes and sodium level. Admission and Anticipated Discharge Date Admission Date: October 06, 2021 Supervising Physician Co-Signing Physician Notes I have discussed the case with the nurse practitioner and agree with the plan as outlined. Subjective 71 year old male. Presented to ED due to a fall due to alcoholism. Labs showed hyponatremia- given a banana bag (NA 120>>126>>130). Otherwise renal function and CBC stable.The alcohol level was 156.He drinks on some days more, some days less per chart review. Lasix and Aldactone held. Nephrology now on board. Follows with Dr. Bone and Jose Luis Bonilla PA-C as an outpatient. Saw Dr. Lizzie benitez in august. Recent nuc was negative for ischemia, however EF further declined to 25%. ABIs were done showing moderate PAD in BL lower extremities. Patient will be having a cardiac catheterization and leg angio by Dr. Moreno next week. Tele: Afib PVCs, 60-80s Upon entrance into the room patient was sitting up in the chair without complaint. No chest pain or shortness of breath. Plans for cath and leg angio on Monday. Tolerated breakfast this am. Review of Systems Review of Systems: All systems reviewed & are unremarkable except as noted in HPI & below Physical Exam Physical Exam: General: no acute distress and stated age Eyes: conjunctiva are pink and non-injected, sclera clear Neck: normal jugular venous pulse, no hepatojugular reflux Chest: normal shape and normal respiratory effort Lungs: clear to auscultation , no rales rhonchi or wheezing Cardiac Exam: - irregular rhythm Abdomen: abdomen soft, non-tender, no abnormal masses and no hepatosplenomegaly Musculoskeletal: no gait disturbance, no weakness Extremities: No edema, left heel with focal ulceration, minimal skin breakdown Neuro: grossly normal exam Psych: appropriate affect and insight. Results & Data ([facility]) Vital Signs (Past 12 Hours) Vital Signs Temp Pulse Pulse Resp BP Pulse Ox 10/08/21 07:26 36.5 C 67 17 131/79 98 10/08/21 04:28 37.0 C 78 17 128/79 95 10/07/21 23:26 36.7 C 70 12 106/71 97 10/07/21 22:25 77 10/07/21 22:01 80 16 96 Laboratory Results Comprehensive Metabolic Panel 10/07/21 10/07/21 10/07/21 Range/Units 08:59 12:45 17:22 Sodium 128 L 128 L 127 L (136-145) mmol/L Potassium 4.2 4.9 4.3 (3.5-5.1) mmol/L Chloride 98 96 L 97 L (98-107) mmol/L Carbon Dioxide 23 25 21 (21-32) mmol/L BUN 20 25 H 31 H (6-23) mg/dl Creatinine 0.96 1.32 D 1.52 H (0.6-1.4) mg/dl Glucose 227 H 219 H 139 H (70-99(Fasting)) mg/dl Calcium 9.2 9.0 8.7 (8.5-10.1) mg/dl 10/07/21 10/08/21 Range/Units 20:40 05:49 Sodium 125 L 129 L (136-145) mmol/L Potassium 4.6 4.0 (3.5-5.1) mmol/L Chloride 95 L 99 (98-107) mmol/L Carbon Dioxide 21 23 (21-32) mmol/L BUN 36 H 32 H (6-23) mg/dl Creatinine 1.59 H 1.30 (0.6-1.4) mg/dl Glucose 156 H 123 H (70-99(Fasting)) mg/dl Calcium 9.0 8.9 (8.5-10.1) mg/dl Intake and Output 10/07/21 10/08/21 10/08/21 22:59 06:59 14:59 Intake Total 1100 / 1780 100 / 1780 Output Total 400 / 1101 Balance 700 / 679 100 / 679 Intake: IV 1000 / 1000 Dextrose 5% 1,000 ml @ 75 mls/ 1000 / 1000 hr IV .[id number] [facility] Rx#:[id number] Oral 100 / 780 100 / 780 Output: Urine 400 / 1100 Other: Weight 78.9 kg Weight Measurement Method Standing Scale (1) Fall Encounter type: initial encounter Qualified Code(s): W19.XXXA - Unspecified fall, initial encounter
[2021-10-08] MEDS: METOPROLOL SUCC 50MG EXT REL TAB PO SCH (08:23)
[2021-10-08] MEDS: THIAMINE HCL 100 MG in SYRINGE 9 ML IV SCH (08:23)
[2021-10-08] MEDS: FOLIC ACID 1 MG in SYRINGE 9.8 ML IV SCH (08:23)
[2021-10-08] MEDS: INSULIN ASPART PER UNIT SC SCH ×4 (08:23→22:42)
[2021-10-08] MEDS: ENALAPRIL MALEATE 10 MG TAB PO SCH (08:24)
[2021-10-08] MEDS: FLUTICASONE/VILANTEROL 200/25MCG 14 PUFFS/INHALER INH SCH (08:24)
[2021-10-08] MEDS: INSULIN GLARGINE SOLOSTAR 100 UNITS/ML 3 ML PEN SC SCH ×2 (08:24→22:43)
[2021-10-08] MEDS: DOCUSATE SODIUM 100 MG CAP PO SCH (08:24)
[2021-10-08] MEDS: ATORVASTATIN 40 MG TAB PO SCH (08:24)
[2021-10-08] MEDS: APIXABAN 5 MG TABLET PO SCH ×2 (12:44→20:26)
[2021-10-08] MEDS ORDERED: FUROSEMIDE 40 MG TAB PO ONE (15:24)
--- NOTE | 2021-10-08 15:31 | Hospitalist Progress Note ---
Date of Service October 08, 2021 Assessment & Plan (1) Fall: Plan: per Dr. Wiley's notes with addendum: 1. s/p Mechanical Fall: Mostly likely secondary to alcoholism, Hyponatremia - management per below - PT, OT 2. Hyponatremia: Hypertonic in the setting of Alcohol Intake - Sodium 120. Received banana bag. repeat Na 130 D5w discontinued - Sodium 128 continue fluid restriction Lasix 40mg PO resumed - Nephro consulted monitor Na closely 3. Alcoholism: - Alcohol is 156. Received banana bag in the ER. Will continue with gabapentin withdrawal protocol with IV Ativan p.r.n. and IV thiamine and IV folic acid. - no signs of overt withdrawal counseled on alcohol cessation 4. Chronic systolic congestive heart failure: Ejection fraction of 25%. Currently holding his Lasix and spironolactone. Continue his metoprolol succinate and ramipril. As per the family, the patient is supposed to get a cardiac catheterization and also lower extremity arterial study next week,and request for cardiology consult. - no signs of overt volume overload - [employer] Operator consulted for Cardiac Cath Monday 5. History of nonobstructive coronary artery disease: Continue his beta tosha, statin. 6. Chronic atrial fibrillation: Continue his Eliquis and beta tosha. 7. Diabetes: Hold his home p.o. medication. Placed him on Lantus 5 units b.i.d., insulin sliding scale. Follow the blood sugar, HbA1c, diet. - A1c 8.7 BSG 123 8. History of chronic obstructive pulmonary disease: Currently stable, on home inhalers. 9. Hyperlipidemia: Continue statin. 10. Deep venous thrombosis prophylaxis: On Eliquis. DISPOSITION: pending Admission and Anticipated Discharge Date Admission Date: October 06, 2021 Subjective ff up s/p fall, hyponatremia, alcoholism, etc seen sitting up in bed, comfortable son and DIL at bedside states he feels fine overall denies any pain no anxiety, tremors, hallucinations no chest pain, dyspnea, palpitations, dizziness no other symptoms Review of Systems Review of Systems: all noted and negative except for above Physical Exam Physical Exam: General- oriented x 3, not in distress, speaks in sentences with no effort or accessory muscle use Eyes- anicteric Neck- no JVD Lungs- clear BS bilaterally, no rales/wheezes Heart- normal rate, regular rhythm; no murmurs Abdomen- normal bowel sounds, nondistended, soft, nontender Extremities- no pretibial edema, no calf tenderness no tremors noted Neuro- alert, oriented x 3; no gross focal neurologic deficits Skin- warm & dry Results & Data Results & Data ([facility]) Vital Signs (Past 12 Hours) Vital Signs Temp Pulse Resp BP Pulse Ox 10/08/21 07:26 36.5 C 67 17 131/79 98 10/08/21 04:28 37.0 C 78 17 128/79 95 all noted and reviewed including below (1) Fall Encounter type: initial encounter Qualified Code(s): W19.XXXA - Unspecified fall, initial encounter
--- NOTE | 2021-10-08 20:35 | Nephrology Progress Note ---
Date of Service October 08, 2021 Assessment & Plan (1) Hyponatremia: Plan: hypertonic hyponatremia in the setting of EtOH intoxication which explains elevated serum osms. his presenting labs are most consistent with polydipsia. no prior hx of hyponatremia as OP. -Sna correction at goal.s -Resume lasix today 40 mg, can be made EOD if hypotensive,continue to hold spi ronolactone. -STRICT I/O -daily STANDING weight -May be able to liberalize to 1.2L (2) Chronic systolic congestive heart failure, NYHA class 2: Plan: worsening HF on recent OP studies -no evidence that low Na reflects HF or vol OL Admission and Anticipated Discharge Date Admission Date: October 06, 2021 Subjective ff up s/p fall, hyponatremia, alcoholism, etc Alert , comfortable, no distress no chest pain, dyspnea, palpitations, dizziness Review of Systems Review of Systems: All systems reviewed & are unremarkable except as noted in HPI & below Physical Exam Physical Exam: General- oriented x 3, not in distre ss, speaks in sent ences with no effo rt or accessory mu scle use Eyes- a nicteric Neck- no JVD Lungs- clear BS bilaterally, n o rales/wheezes H eart- normal rate, regular rhythm; n o murmurs Abdomen - normal bowel kandace nds, nondistended, soft, nontender Extremities- no pr etibial edema, no calf tenderness no tremors noted Ne uro- alert, orient ed x 3; no gross f ocal neurologic de ficits Skin- warm & dry Results & Data ([facility]) Vital Signs (Past 12 Hours) Vital Signs Temp Pulse Resp BP Pulse Ox 10/08/21 19:25 36.4 C L 97 H 16 99/63 L 96 10/08/21 17:19 73 65 H 100/61 98 10/08/21 12:00 36.3 C L 62 18 96/58 L 94 Laboratory Results 10/07/21 05:23 10/08/21 05:49
[2021-10-08] MEDS: ACETAMINOPHEN 325 MG TAB PO PRN (22:48)
[2021-10-09] MEDS: GABAPENTIN 600 MG TAB PO SCH ×2 (00:13→13:01)
[2021-10-09 07:24] LABS: Calcium 9.2 mg/dl (8.5-10.1); Creatinine Clr Calc Pharmacy 48.5 ml/min; Est GFR (African American) 60.1 ml/min; Est GFR (Non-African American) 51.9 ml/min; Potassium 4.1 mmol/L (3.5-5.1)
[2021-10-09] MEDS: ENALAPRIL MALEATE 10 MG TAB PO SCH (08:24)
[2021-10-09] MEDS: INSULIN GLARGINE SOLOSTAR 100 UNITS/ML 3 ML PEN SC SCH ×2 (08:24→20:28)
[2021-10-09] MEDS: FOLIC ACID 1 MG in SYRINGE 9.8 ML IV SCH (08:24)
[2021-10-09] MEDS: THIAMINE HCL 100 MG in SYRINGE 9 ML IV SCH (08:24)
[2021-10-09] MEDS: ATORVASTATIN 40 MG TAB PO SCH (08:24)
[2021-10-09] MEDS: FUROSEMIDE 40 MG TAB PO SCH (08:24)
[2021-10-09] MEDS: INSULIN ASPART PER UNIT SC SCH ×4 (08:24→20:27)
[2021-10-09] MEDS: DOCUSATE SODIUM 100 MG CAP PO SCH (08:24)
[2021-10-09] MEDS: METOPROLOL SUCC 50MG EXT REL TAB PO SCH (08:25)
[2021-10-09] MEDS: FLUTICASONE/VILANTEROL 200/25MCG 14 PUFFS/INHALER INH SCH (08:25)
--- NOTE | 2021-10-09 14:13 | Nephrology Progress Note ---
Date of Service October 09, 2021 Assessment & Plan (1) Hyponatremia: Plan: hypertonic hyponatremia in the setting of EtOH intoxication which explains elevated serum osms. his presenting labs are most consistent with polydipsia. no prior hx of hyponatremia as OP. -Sna corrected as per guidlines -Continue on lasix today 40 mg,,continue to hold spironolactone. -STRICT I/O -daily STANDING weight -May be able to liberalize to 1.2L (2) Chronic systolic congestive heart failure, NYHA class 2: Plan: worsening HF on recent OP studies -no evidence that low Na reflects HF or vol OL Admission and Anticipated Discharge Date Admission Date: October 06, 2021 Subjective ff up s/p fall, hyponatremia, alcoholism, etc Alert , comfortable, no distress Review of Systems Review of Systems: All systems reviewed & are unremarkable except as noted in Subjective Physical Exam Physical Exam: General- oriented x 3, not in distre ss, speaks in sent ences with no effo rt or accessory mu scle use Eyes- a nicteric Neck- no JVD Lungs- clear BS bilaterally, n o rales/wheezes H eart- normal rate, regular rhythm; n o murmurs Abdomen - normal bowel kandace nds, nondistended, soft, nontender Extremities- no pr etibial edema, no calf tenderness no tremors noted Ne uro- alert, orient ed x 3; no gross f ocal neurologic de ficits Skin- warm & dry Results & Data ([facility]) Vital Signs (Past 12 Hours) Vital Signs Temp Pulse Pulse Resp BP Pulse Ox 10/09/21 12:00 36.8 C 70 18 116/72 97 10/09/21 06:32 36.4 C L 67 20 127/83 98 10/09/21 02:56 36.7 C 62 18 105/78 96 Laboratory Results 10/07/21 05:23 10/09/21 06:42
--- NOTE | 2021-10-09 14:25 | Cardiology Progress Note ---
Date of Service October 09, 2021 Assessment & Plan (1) Chronic systolic congestive heart failure, NYHA class 2: (2) Non-ischemic cardiomyopathy: (3) CAD (coronary atherosclerotic disease): (4) PAD (peripheral artery disease): Plan: Chronic systolic CHF, LVEF 35-39%, NICM ? Tachycardic induced vs alcohol induced vs other. Recent EF on nuclear stress reduced further at 25%. Angina free. Euvolemic on exam. -Plans for upcoming cardiac cath and angiogram of the lower extremities , plans to continue with testing for Monday t. (5) Atrial fibrillation: Plan: Permanent atrial fib. Rate controlled. Asymptomatic. CHADSVASC score of 4 (age, CHF, HTN, CAD/PAD)- anticoagulated on Eliquis, frequent mechanical falls to due alcohol. - Continue BB therapy with metoprolol succinate 100 mg daily - Eliquis on hold (6) Alcohol abuse: (7) Hyponatremia: (8) Fall: Plan: Hyponatremia likely in the setting of alcoholism. Will defer to primary team regarding lyte replacement and treatment to prevent withdraw symptoms. Appreciate nephrology input. (9) HTN (hypertension): Plan: Controlled. No changes at this time. Plan: We will plan on IV hydration on Monday evening in anticipation of dye load, angiography on Monday Admission and Anticipated Discharge Date Admission Date: October 06, 2021 Subjective Patient seen and examined, chart, medications, telemetry reviewed. No acute complaints. No chest pains or shortness of breath no worsening claudication. Physical Exam Physical Exam: General: no acute distress and stated age Eyes: conjunctiva are pink and non-injected, sclera clear Neck: normal jugular venous pulse, no hepatojugular reflux Chest: normal shape and normal respiratory effort Lungs: clear to auscultation , no rales rhonchi or wheezing Cardiac Exam: - irregular rhythm Abdomen: abdomen soft, non-tender, no abnormal masses and no hepatosplenomegaly Musculoskeletal: no gait disturbance, no weakness Extremities: No edema, left heel with focal ulceration, minimal skin breakdown Neuro: grossly normal exam Psych: appropriate affect and insight. Results & Data ([facility]) Vital Signs (Past 12 Hours) Vital Signs Temp Pulse Pulse Resp BP Pulse Ox 10/09/21 12:00 36.8 C 70 18 116/72 97 10/09/21 06:32 36.4 C L 67 20 127/83 98 04/16/22 02:56 36.7 C 62 18 105/78 96 Laboratory Results Laboratory Results - last 24 hr 10/08/21 10/08/21 10/09/21 16:17 20:38 06:42 Sodium 132 L Potassium 4.1 Chloride 99 Carbon Dioxide 27 Anion Gap 6 BUN 37 H Creatinine 1.37 Est Cr Clr Drug Dosing 48.5 Est GFR ( Amer) 60.1 Est GFR (Non-Af Amer) 51.9 BUN/Creatinine Ratio 27.0 H Glucose 138 H POC Glucose 102 H 201 H Calcium 9.2 10/09/21 10/09/21 07:32 11:41 Sodium Potassium Chloride Carbon Dioxide Anion Gap BUN Creatinine Est Cr Clr Drug Dosing Est GFR ( Amer) Est GFR (Non-Af Amer) BUN/Creatinine Ratio Glucose POC Glucose 145 H 227 H Calcium (1) Fall Encounter type: initial encounter Qualified Code(s): W19.XXXA - Unspecified fall, initial encounter
--- NOTE | 2021-10-09 17:47 | Hospitalist Progress Note ---
Date of Service October 09, 2021 delayed entry date of service noted above Assessment & Plan (1) Fall: Plan: per Dr. Wiley's notes with addendum: 1. s/p Mechanical Fall: Mostly likely secondary to alcoholism, Hyponatremia - management per below - PT, OT 2. Hyponatremia: Hypertonic in the setting of Alcohol Intake - Sodium 120. Received banana bag. repeat Na 130 D5w discontinued - Sodium 132 continue fluid restriction Lasix 40mg PO resumed - Nephro consulted monitor Na closely 3. Alcoholism: - Alcohol is 156. Received banana bag in the ER. Will continue with gabapentin withdrawal protocol with IV Ativan p.r.n. and IV thiamine and IV folic acid. - no signs of overt withdrawal counseled on alcohol cessation 4. Chronic systolic congestive heart failure: Ejection fraction of 25%. Currently holding his Lasix and spironolactone. Continue his metoprolol succinate and ramipril. As per the family, the patient is supposed to get a cardiac catheterization and also lower extremity arterial study next week,and request for cardiology consult. - no signs of overt volume overload - [employer] consulted for Cardiac Cath Monday 5. History of nonobstructive coronary artery disease: Continue his beta tosha, statin. 6. Chronic atrial fibrillation: Continue his Eliquis and beta tosha. 7. Diabetes: Hold his home p.o. medication. Placed him on Lantus 5 units b.i.d., insulin sliding scale. Follow the blood sugar, HbA1c, diet. - A1c 8.7 BSG 123 8. History of chronic obstructive pulmonary disease: Currently stable, on home inhalers. 9. Hyperlipidemia: Continue statin. 10. Deep venous thrombosis prophylaxis: On Eliquis. DISPOSITION: pending Admission and Anticipated Discharge Date Admission Date: October 06, 2021 Subjective ff up for hyponatremia, etc seen resting in bed, comfortable sitting up states he feels fine overall no chest pain, dyspnea, palpitations, dizziness no tremors, anxiety, etc no other symptoms Review of Systems Review of Systems: all noted and negative except for above Physical Exam Physical Exam: General- oriented x 3, not in distress, speaks in sentences with no effort or accessory muscle use Eyes- anicteric Neck- no JVD Lungs- clear breath sounds bilaterally Heart- normal rate, regular rhythm; no murmurs Abdomen- normal bowel sounds, nondistended, soft, nontender Extremities- no pretibial edema, no calf tenderness no tremors Neuro- alert, oriented x 3; no gross focal neurologic deficits Skin- warm & dry Results & Data Results & Data ([facility]) Vital Signs (Past 12 Hours) Vital Signs Temp Pulse Pulse Resp BP Pulse Ox 10/09/21 16:00 36.3 C L 73 18 99/64 L 97 10/09/21 12:00 36.8 C 70 18 116/72 97 10/09/21 06:32 36.4 C L 67 20 127/83 98 all noted and reviewed including below (1) Fall Encounter type: initial encounter Qualified Code(s): W19.XXXA - Unspecified fall, initial encounter
[2021-10-09] MEDS: ALBUTEROL HFA 8 GM INHALER INH PRN (18:00)
[2021-10-10 07:26] LABS: BUN Creatinine Ratio 33.6 (10-20); Calcium 9.7 mg/dl (8.5-10.1); Creatinine Clr Calc Pharmacy 58.8 ml/min; Est GFR (African American) 75.9 ml/min; Est GFR (Non-African American) 65.5 ml/min; Potassium 4.3 mmol/L (3.5-5.1)
[2021-10-10] MEDS: INSULIN ASPART PER UNIT SC SCH ×4 (08:15→20:38)
[2021-10-10] MEDS: DOCUSATE SODIUM 100 MG CAP PO SCH (08:16)
[2021-10-10] MEDS: ATORVASTATIN 40 MG TAB PO SCH (08:16)
[2021-10-10] MEDS: FLUTICASONE/VILANTEROL 200/25MCG 14 PUFFS/INHALER INH SCH (08:17)
[2021-10-10] MEDS: ENALAPRIL MALEATE 10 MG TAB PO SCH (08:17)
[2021-10-10] MEDS: THIAMINE HCL 100 MG in SYRINGE 9 ML IV SCH (08:18)
[2021-10-10] MEDS: FOLIC ACID 1 MG in SYRINGE 9.8 ML IV SCH (08:19)
[2021-10-10] MEDS: INSULIN GLARGINE SOLOSTAR 100 UNITS/ML 3 ML PEN SC SCH ×2 (08:20→20:38)
[2021-10-10] MEDS: FUROSEMIDE 40 MG TAB PO SCH (08:20)
[2021-10-10] MEDS: METOPROLOL SUCC 50MG EXT REL TAB PO SCH (08:21)
--- NOTE | 2021-10-10 11:11 | Cardiology Progress Note ---
Date of Service October 10, 2021 Assessment & Plan (1) Chronic systolic congestive heart failure, NYHA class 2: (2) Non-ischemic cardiomyopathy: (3) CAD (coronary atherosclerotic disease): (4) PAD (peripheral artery disease): Plan: Chronic systolic CHF, LVEF 35-39%, NICM ? Tachycardic induced vs alcohol induced vs other. Recent EF on nuclear stress reduced further at 25%. Angina free. Euvolemic on exam. -Plans for upcoming cardiac cath and angiogram of the lower extremities , plans to continue with testing for Monday t. (5) Atrial fibrillation: Plan: Permanent atrial fib. Rate controlled. Asymptomatic. CHADSVASC score of 4 (age, CHF, HTN, CAD/PAD)- anticoagulated on Eliquis, frequent mechanical falls to due alcohol. - Continue BB therapy with metoprolol succinate 100 mg daily - Eliquis on hold (6) Alcohol abuse: (7) Hyponatremia: (8) Fall: Plan: Hyponatremia likely in the setting of alcoholism. Will defer to primary team regarding lyte replacement and treatment to prevent withdraw symptoms. Appreciate nephrology input. (9) HTN (hypertension): Plan: Controlled. No changes at this time. Plan: We will plan on IV hydration on this evening in anticipation of dye load, angiography on Monday Admission and Anticipated Discharge Date Admission Date: October 06, 2021 Subjective Patient seen and examined, chart, medications, telemetry reviewed. Patient ambulatory in room with walker. No acute complaints. Hyponatremia improved Physical Exam Physical Exam: General: no acute distress and stated age Eyes: conjunctiva are pink and non-injected, sclera clear Neck: normal jugular venous pulse, no hepatojugular reflux Chest: normal shape and normal respiratory effort Lungs: clear to auscultation , no rales rhonchi or wheezing Cardiac Exam: - irregular rhythm Abdomen: abdomen soft, non-tender, no abnormal masses and no hepatosplenomegaly Musculoskeletal: no gait disturbance, no weakness Extremities: No edema, left heel with focal ulceration, minimal skin breakdown Neuro: grossly normal exam Psych: appropriate affect and insight. Results & Data ([facility]) Vital Signs (Past 12 Hours) Vital Signs Temp Pulse Resp BP Pulse Ox 10/10/21 07:20 36.4 C L 74 18 128/83 97 10/10/21 03:00 36.3 C L 84 16 112/76 93 Laboratory Results Laboratory Results - last 24 hr 10/09/21 10/09/21 10/09/21 11:41 16:31 20:15 Sodium Potassium Chloride Carbon Dioxide Anion Gap BUN Creatinine Est Cr Clr Drug Dosing Est GFR ( Amer) Est GFR (Non-Af Amer) BUN/Creatinine Ratio Glucose POC Glucose 227 H 83 169 H Calcium 10/10/21 10/10/21 06:11 07:20 Sodium 134 L Potassium 4.3 Chloride 99 Carbon Dioxide 28 Anion Gap 7 BUN 38 H Creatinine 1.13 Est Cr Clr Drug Dosing 58.8 Est GFR ( Amer) 75.9 Est GFR (Non-Af Amer) 65.5 BUN/Creatinine Ratio 33.6 H Glucose 151 H POC Glucose 139 H Calcium 9.7 (1) Fall Encounter type: initial encounter Qualified Code(s): W19.XXXA - Unspecified fall, initial encounter
--- NOTE | 2021-10-10 11:20 | Nephrology Progress Note ---
Date of Service October 10, 2021 Assessment & Plan (1) Hyponatremia: Plan: hypertonic hyponatremia in the setting of EtOH intoxication which explains elevated serum osms. his presenting labs are most consistent with polydipsia. no prior hx of hyponatremia as OP. -Sna corrected as per guidelines -Continue on lasix 40 mg,continue to hold spironolactone. -STRICT I/O -FR-1.2L (2) Chronic systolic congestive heart failure, NYHA class 2: Plan: worsening HF on recent OP studies -no evidence that low Na reflects HF or vol OL Admission and Anticipated Discharge Date Admission Date: October 06, 2021 Subjective Comfortabel, No acute complaints. Hyponatremia improved Review of Systems Review of Systems: All systems reviewed & are unremarkable except as noted in Subjective Physical Exam Physical Exam: General- oriented x 3, not in distre ss, speaks in sent ences with no effo rt or accessory mu scle use Eyes- a nicteric Neck- no JVD Lungs- clear BS bilaterally, n o rales/wheezes H eart- normal rate, regular rhythm; n o murmurs Abdomen - normal bowel kandace nds, nondistended, soft, nontender Extremities- no pr etibial edema, no calf tenderness no tremors noted Ne uro- alert, orient ed x 3; no gross f ocal neurologic de ficits Skin- warm & dry Results & Data ([facility]) Vital Signs (Past 12 Hours) Vital Signs Temp Pulse Resp BP Pulse Ox 10/10/21 07:20 36.4 C L 74 18 128/83 97 10/10/21 03:00 36.3 C L 84 16 112/76 93 Laboratory Results 10/07/21 05:23 10/10/21 06:11
[2021-10-10] MEDS ORDERED: GABAPENTIN 600 MG TAB PO SCH (12:00)
--- NOTE | 2021-10-10 15:54 | Hospitalist Progress Note ---
Date of Service October 10, 2021 Assessment & Plan (1) Fall: Plan: per Dr. Wiley's notes with addendum: 1. s/p Mechanical Fall: Mostly likely secondary to alcoholism, Hyponatremia - management per below - PT, OT 2. Hyponatremia: Hypertonic in the setting of Alcohol Intake - Sodium 120. Received banana bag. repeat Na 130 D5w discontinued - Sodium 134 continue fluid restriction Lasix 40mg PO on hold for cardiac cath tomorrow - Nephro consulted monitor Na closely 3. Alcoholism: - Alcohol is 156. Received banana bag in the ER. Will continue with gabapentin withdrawal protocol with IV Ativan p.r.n. and IV thiamine and IV folic acid. - no signs of overt withdrawal counseled on alcohol cessation 4. Chronic systolic congestive heart failure: Ejection fraction of 25%. Currently holding his Lasix and spironolactone. Continue his metoprolol succinate and ramipril. As per the family, the patient is supposed to get a cardiac catheterization and also lower extremity arterial study next week,and request for cardiology consult. - no signs of overt volume overload - Health Care Administrator consulted for Cardiac Cath tomorrow 5. History of nonobstructive coronary artery disease: Continue his beta tosha, statin. 6. Chronic atrial fibrillation: Continue his Eliquis and beta tosha. 7. Diabetes: Hold his home p.o. medication. Placed him on Lantus 5 units b.i.d., insulin sliding scale. Follow the blood sugar, HbA1c, diet. - A1c 8.7 BSG 123 8. History of chronic obstructive pulmonary disease: Currently stable, on home inhalers. 9. Hyperlipidemia: Continue statin. 10. Deep venous thrombosis prophylaxis: On Eliquis. DISPOSITION: pending Admission and Anticipated Discharge Date Admission Date: October 06, 2021 Subjective ff up for hyponatremia, alcoholism, CHF, etc seen resting in bed, comfortable sitting up states he feels fine overall no chest pain, dyspnea, palpitations, dizziness no anxiety, tremors, hallucinations appetite good no new issues Review of Systems Review of Systems: all noted and negative except for above Physical Exam Physical Exam: General- oriented x 3, not in distress, speaks in sentences with no effort or accessory muscle use Eyes- anicteric Neck- no JVD Lungs- clear breath sounds no rales/wheezing Heart- normal rate, regular rhythm; no murmurs Abdomen- normal bowel sounds, nondistended, soft, nontender Extremities- no pretibial edema, no calf tenderness no tremors Neuro- alert, oriented x 3; no gross focal neurologic deficits Skin- warm & dry Results & Data Results & Data ([facility]) Vital Signs (Past 12 Hours) Vital Signs Temp Pulse Resp BP Pulse Ox 10/10/21 11:19 36.5 C 67 18 114/73 96 10/10/21 07:20 36.4 C L 74 18 128/83 97 all noted and reviewed including below (1) Fall Encounter type: initial encounter Qualified Code(s): W19.XXXA - Unspecified fall, initial encounter
[2021-10-10] MEDS: ACETAMINOPHEN 325 MG TAB PO PRN (19:33)
[2021-10-11] MEDS ORDERED: SODIUM CHLORIDE 0.9% 1000ML 1,000 ML IV SCH
[2021-10-11 07:19] LABS: Calcium 9.3 mg/dl (8.5-10.1); Creatinine Clr Calc Pharmacy 57.3 ml/min; Est GFR (African American) 73.5 ml/min; Est GFR (Non-African American) 63.5 ml/min; Potassium 4.2 mmol/L (3.5-5.1)
[2021-10-11] MEDS ORDERED: ASPIRIN 81 MG CHEW ONE (07:48)
[2021-10-11] MEDS ORDERED: LIDOCAINE 1% LOCAL 20 ML VIAL ONE (07:51)
[2021-10-11] MEDS ORDERED: HEPARIN (PORCINE) 1000 UNIT/ML 10 ML (CATH LAB USE ONLY) ONE ×2 (07:51→10:08)
[2021-10-11] MEDS ORDERED: fentaNYL citrate 100 MCG/2 ML VIAL ONE ×2 (07:51→10:18)
[2021-10-11] MEDS ORDERED: NITROGLYCERIN/D5W 100MCG/ML 20ML SYR ONE (07:51)
[2021-10-11] MEDS ORDERED: niCARdipine HCL INJ 2.5 MG/ML 10 ML AMP ONE (07:51)
[2021-10-11] MEDS ORDERED: MIDAZOLAM HCL 5 MG/ML 1 ML VIAL ONE (07:54)
[2021-10-11] MEDS: INSULIN ASPART PER UNIT SC SCH ×4 (10:07→20:53)
[2021-10-11] MEDS ORDERED: CLOPIDOGREL BISULFATE 300 MG TAB ONE (10:41)
[2021-10-11] MEDS ORDERED: LIDOCAINE 1% LOCAL 20 ML VIAL INFIL ONE (10:54)
--- NOTE | 2021-10-11 11:25 | Post Anesthesia Assessment ---
Date of Service October 11, 2021 Post Sedation Assessment Vital Signs Temp Pulse Pulse Resp BP Pulse Ox 10/11/21 11:20 97.0 F L 67 20 147/75 H 10/11/21 11:05 73 18 141/83 H 97 10/11/21 10:50 65 18 150/84 H 95 10/11/21 02:45 97.3 F L 66 16 111/85 98 10/10/21 23:00 98.1 F 55 L 18 109/69 97 10/10/21 22:18 67 10/10/21 19:00 97.5 F L 71 20 96/62 L 94 10/10/21 16:13 98.2 F 60 18 130/74 97 Recovery Score Activity: Moves 4 extremities Respiration: Deep Breath/Cough Circulation: +/-20% PreAnes Value Consciousness: Fully Awake Oxygen Saturation: > 92% On Room Air Post Anesthesia Score: 10 Discharge Sedation Level of Care: Fast Track Phase II Post Sedation Plan On clinical assessment, the patient appears to have tolerated the sedation without complications. Patient is recovering as anticipated. Patient will continue to be monitored by nursing and may be discharged when sedation discharge criteria are met per below protocol. Upon Completions of procedure up to 15 minutes continue every 5 minute vital signs and the P.A.R. score; then discharge to a Phase I or Fast Track to Phase II per the following guidelines: * Discharge Patient to appropriate Phase II area if PAR is 8 or greater or return to pre- procedure baseline. The post - procedure orders will be as directed. * If PAR score is less than 8 or not return to pre-procedure baseline then patient will follow Phase I monitoring till PAR is reached for Phase II. The Phase I may be done in procedure room or may call to secure a Phase I area. * If naloxone or flumazenil are used for reversal, hold in Phase I for continued monitoring from when last reversal dose was given for a minimum of 60 minutes or longer pending the nurse and/or physician discretion of patient condition before discharge to Phase II. Please call the Sedation Physician to re-evaluate and complete post-note for discharge to Phase II area. Do NOT discharge from procedure sedation or Phase 1 until post- sedation evaluation note is complete by procedure /sedation MD Sedation Discharge Instructions to be given to the patient at discharge to home.
[2021-10-11] MEDS: GABAPENTIN 100 MG CAP PO SCH ×3 (11:28→20:53)
[2021-10-11] MEDS: ATORVASTATIN 40 MG TAB PO SCH (11:28)
[2021-10-11] MEDS: THIAMINE HCL 100 MG in SYRINGE 9 ML IV SCH (11:28)
[2021-10-11] MEDS: METOPROLOL SUCC 50MG EXT REL TAB PO SCH (11:28)
[2021-10-11] MEDS: DOCUSATE SODIUM 100 MG CAP PO SCH (11:28)
[2021-10-11] MEDS: FOLIC ACID 1 MG in SYRINGE 9.8 ML IV SCH (11:28)
[2021-10-11] MEDS: FLUTICASONE/VILANTEROL 200/25MCG 14 PUFFS/INHALER INH SCH (11:28)
[2021-10-11] MEDS: ENALAPRIL MALEATE 10 MG TAB PO SCH (11:28)
--- NOTE | 2021-10-11 11:39 | Cardiac Catheterization ---
[facility] Data: [employer] Cardiac Status Clinical evaluation leading to the procedure CAD Presenation: Sx unlikely to be ischemic Diagnostic Physicians Name: Ace Moreno MD Closure Device Recommendations: PCI without planned CABG Cardiac Cath Procedure Full Procedure Date October 11, 2021 Pre-Procedure Diagnosis Pre-Procedure Diagnosis: Cardiomyopathy AUC Score AUC Score: 7 Post-Procedure Diagnosis Post-Procedure Diagnosis: Severe CAD and Successful PCI Procedure(s) Performed Procedure(s) Performed: Coronary Angiography, Left Heart Cath, Drug Eluting Stent and IVUS Ham Passer Ace Moreno MD Processor Inspector(s) Pradeep Mullen Estimated Blood Loss Estimated Blood Loss: 15 Medication(s) Medication(s): Clopidogrel, Fentanyl, Heparin, Lidocaine 1%, Nicardipine, Nitroglycerin and Versed Summary of Findings Indication: Severe LV dysfunction Access: 6 Fr left radial artery under ultrasound guidance Catheters: JR4, JL 4, pigtail, JL 4 guide, EBU 3.75 guide Findings: LM -heavy calcium extending back into left coronary cusp, 20 to 30% diffuse disease LAD -medium caliber, calcified, 20 to 30% ostial, 90% mid segment stenosis just after takeoff of D1. Remainder of LAD without significant disease. Medium D1 60% ostial Circumflex -dominant, large caliber, midsegment luminal irregularities RCA -anterior takeoff, nondominant, 40% mid segment stenosis LVEDP -1 IVUS of left main/ostial LAD Left main cannulated with JL 4 guide BMW wire placed into first diagonal [facility] IVUS catheter placed into proximal LAD Pullback revealed mild eccentric plaque at LAD ostium and 20 to 30% calcified distal left main disease. Heavily calcified ostium left main without significant stenosis. Decision to proceed with PCI of mid LAD -- PCI -- Antithrombotic therapy: Heparin, clopidogrel Procedure: Left main cannulated with EBU 3.75 guide Pre-procedure flow KATIE 3 Mid LAD lesion crossed with pilot instructor 50 wire BMW wire placed into first diagonal Mid LAD lesion predilated with 2.5 compliant balloon Dilated lesion stented with 2.75 x 18 mm Xience drug-eluting stent across takeoff of D1 Stent post-dilated with 3.5 noncompliant balloon to high atmospheres IC vasodilators administered for spasm Post procedure KATIE 3 flow, stent well expanded with minimal residual stenosis and no apparent cardiac complications. Moderate to severe ostial stenosis in D1 unchanged, KATIE-3 flow. Arterial Closure: TR band Summary: 1. Severe single vessel coronary artery disease -90% mid LAD, 60% ostial D1 2. Normal intracardiac filling pressure 3. Successful PCI of mid LAD with single drug-eluting stent (2.75 x 18 mm Xience; postdilated with 3.5 NC). Recommendations: To PCU for continued monitoring Loaded with clopidogrel 600 mg in [employer] Continue dual-antiplatelet therapy for at least 6 months Consult cardiac Rehab Hemodynamics Rest Ao:: 118/64/82 Final Ao: 110/48/68 LV: 121/1 Recommendations Recommendations: PCI without planned CABG Specimens Specimens: None Radiation Exposure (mGy) 2737 Contrast (mls) 210 Anesthesia moderate 8440-5838 Procedural Complication(s) None Disposition PCU I attest to the content of the Intraoperative Record and any orders documented therein. Any exceptions are noted below. [facility] Card Cath Procedure Codes Cardiac Catheterization Procedure 1: Cardiovascular Cath Procedures: 25545 Coronaries and LHC (+/-LV) Therapeutic Services & Ancillary Proc Procedure 1: Cardiovascular Tx and Anc Procedures: 90546 IV Ultrasound (Coronary or Graft) Moderate Sedation Procedure 1: Sedation/Anesthesia: 32041 Mod Sedation by the same physician;Init15 Min Child Age 5 & Up Procedure 2: Sedation/Anesthesia: 11860 Mod Sedation by the same physician; Ea [id number] Minutes Stenting Procedure 1: Cardiovascular Stent Procedures: 95865 Perc transcatheter placement of intracoronary stent(s), with ang PG Care Time/CCT Total # of Minutes Spent Total Time Spent with Patient: Total time spent is greater than 50% in coordination of care (as documented) at patient's floor/unit and/or counseling patient:
[2021-10-11] MEDS: INSULIN GLARGINE SOLOSTAR 100 UNITS/ML 3 ML PEN SC SCH ×2 (12:04→20:53)
--- NOTE | 2021-10-11 14:19 | Electrocardiogram Report ---
Test Reason : Blood Pressure : / mmHG Vent. Rate : 070 BPM Atrial Rate : 000 BPM P-R Int : 000 ms QRS Dur : 106 ms QT Int : 420 ms P-R-T Axes : 000 -51 121 degrees QTc Int : 453 ms Atrial fibrillation with premature ventricular or aberrantly conducted complexes Low voltage QRS Left anterior fascicular block Abnormal ECG When compared with ECG of 06-OCT-2021 18:23, Nonspecific T wave abnormality now evident in Inferior leads T wave inversion now evident in Anterolateral leads Confirmed by Ace Duenas ([id number]) on 10/11/2021 2:17:57 PM Referred By: REFERRED SELF Confirmed By:Teo Duenas
[2021-10-11] MEDS: ACETAMINOPHEN 325 MG TAB PO PRN (19:21)
--- NOTE | 2021-10-11 19:23 | Hospitalist Progress Note ---
Date of Service October 11, 2021 Assessment & Plan (1) Fall: Plan: per Dr. Wiley's notes with addendum: 1. s/p Mechanical Fall: Mostly likely secondary to alcoholism, Hyponatremia - management per below - PT, OT: inpatient rehab, if patient declines / care at home 2. Hyponatremia: Hypertonic in the setting of Alcohol Intake - Sodium 120. Received banana bag. repeat Na 130 D5w discontinued - Sodium 134 continue fluid restriction Lasix 40mg PO on hold for cardiac cath - Nephro consulted monitor Na closely 3. Alcoholism: - Alcohol is 156. Received banana bag in the ER. Will continue with gabapentin withdrawal protocol with IV Ativan p.r.n. and IV thiamine and IV folic acid. - no signs of overt withdrawal counseled on alcohol cessation 4. Chronic systolic congestive heart failure: Ejection fraction of 25%. Currently holding his Lasix and spironolactone. Continue his metoprolol succinate and ramipril. As per the family, the patient is supposed to get a cardiac catheterization and also lower extremity arterial study next week,and request for cardiology consult. - no signs of overt volume overload - Patient Care Coordinator consulted 10/11: Cardiac Cath: 1. Severe single vessel coronary artery disease -90% mid LAD, 60% ostial D1 2. Normal intracardiac filling pressure 3. Successful PCI of mid LAD with single drug-eluting stent (2.75 x 18 mm Xience; postdilated with 3.5 NC). Recommendations: To PCU for continued monitoring Loaded with clopidogrel 600 mg in [employer] Continue dual-antiplatelet therapy for at least 6 months Consult cardiac Rehab 5. History of nonobstructive coronary artery disease: Continue his beta tosha, statin. 6. Chronic atrial fibrillation: Continue his Eliquis and beta tosha. 7. Diabetes: Hold his home p.o. medication. Placed him on Lantus 5 units b.i.d., insulin sliding scale. Follow the blood sugar, HbA1c, diet. - A1c 8.7 BSG 123 8. History of chronic obstructive pulmonary disease: Currently stable, on home inhalers. 9. Hyperlipidemia: Continue statin. 10. Deep venous thrombosis prophylaxis: On Eliquis. DISPOSITION: pending Admission and Anticipated Discharge Date Admission Date: October 06, 2021 Subjective ff up for hyponatremia, etc seen resting in bed, sitting up s/p cardiac cath states he feels fine overall no chest pain, dyspnea, palpitations, dizziness no tremors, palpitations, confusion, hallucination no other symptoms Review of Systems Review of Systems: all noted and negative except for above Physical Exam Physical Exam: General- oriented x 3, not in distress, speaks in sentences with no effort or accessory muscle use Eyes- anicteric Neck- no JVD Lungs- clear breath sounds bilaterally Heart- normal rate, regular rhythm; no murmurs Abdomen- normal bowel sounds, nondistended, soft, nontender Extremities- no pretibial edema, no calf tenderness no tremors Neuro- alert, oriented x 3; no gross focal neurologic deficits Skin- warm & dry Results & Data Results & Data ([facility]) Vital Signs (Past 12 Hours) Vital Signs Temp Pulse Resp BP Pulse Ox 10/11/21 15:20 36.4 C L 72 15 135/84 97 10/11/21 14:30 36.5 C 67 18 148/80 H 98 10/11/21 14:10 36.5 C 67 18 107/75 98 10/11/21 13:24 36.3 C L 84 18 127/82 97 10/11/21 12:50 36.5 C 56 L 20 115/73 93 10/11/21 12:15 36.5 C 65 20 150/70 H 92 10/11/21 11:50 36.4 C L 56 L 20 135/74 92 10/11/21 11:35 36.4 C L 69 20 133/82 92 10/11/21 11:20 36.1 C L 67 20 147/75 H 10/11/21 11:05 73 18 141/83 H 97 10/11/21 10:50 65 18 150/84 H 95 all noted and reviewed including below (1) Fall Encounter type: initial encounter Qualified Code(s): W19.XXXA - Unspecified fall, initial encounter
--- NOTE | 2021-10-11 21:47 | Endovascular Procedure Note ---
PG Endovascular Procedure Rpt Pre & Post Diagnosis Peripheral arterial disease I identified the patient and participated in the time-out.: Yes Procedure Operation Date: 10/11/21 08:00 Actual Procedures p Cineradiography w/Routine Exam - Jerod Moreno MD p Aortogram, Abdominal w/Bilat Runoff - Jerod Moreno MD p Cath, Left with Cors and Vent - Jerod Moreno MD s IVUS Coronary Single Vessel - Jerod Moreno MD s SC Select Cath ALEP 3rd Order - Jerod Moreno MD s Drug Eluting Stent SGl Vessel - MD odette Pichardo Ultrasound Vascular Access - Jerod Moreno MD Surgeon Ace Moreno MD Human Services Case Manager Pradeep Mullen Estimated Blood Loss 20 Findings See Below Abdominal aorta--no significant aneurysmal or stenotic disease Renal arteriesright 60% ostial, left no significant disease Right lower extremity-- -Common iliac75% proximal stenosis External iliac, internal iliac widely patent -CFAheavily calcified, 50% stenosis Profunda widely patent -SFAheavily calcified, diffuse mild to moderate disease -Popliteal heavily calcified, widely patent -LRR683% proximal occlusion HFJ711% distal occlusion -PTAreconstitute to the mid segment and patent to the ankle. Peroneal occluded Left lower extremity-- -Common iliac, external iliac, internal iliac widely patent -CFAheavily calcified, 30 to 40% disease. Eioczhpl101% mid occlusion -SFAheavily calcified, 50% mid, 50 to 60% distal stenosis -Poplitealcalcified, 60% mid stenosis -XDU440% proximal occlusion -DDU125% distal occlusion -PTApartially reconstitutes in mid segment, papers prior to ankle -No pedal vessels visualized Anesthesia Type RN Sedation Radiation Exposure (mGv) Radiation (mGy): 2,737 Contrast Contrast: 210 Complications none Disposition Accompanied Patient To Recovery: Yes Disposition: [employer] Description of Procedure Left radial artery access obtained under ultrasound guidance Coronary diagnostic catheters navigated into ascending aorta and coronary angiography completed (see cath report from earlier today). Pigtail directed into ascending aorta Abdominal aortogram with runoff completed Selective left lower extremity angiography via 0.35 seeker catheter placed into SFA No pullback gradient across DISASSEMBLER PRODUCT, iliac disease. Contrast used: 210 Moderate sedation: [id number] Access closure: TR band Summary: 1. Left lower extremity --50-60% mid, distal SFA and mid popliteal disease. 100% occluded ROSIBEL, TPT. No significant collateralization of distal tibials and no visualization of pedal vessels. 2. Right lower extremity --75% proximal common iliac stenosis, 50% DISASSEMBLER PRODUCT. 100% occluded ROSIBEL, TPT. FAMILY INTERVENTION SPECIALIST reconstitutes in the mid segment and extends the ankle. 3. 60% proximal right renal artery stenosis Recommendations: With left lower extremity rest pain consider endovascular intervention to SFA/popliteal disease +/- attempt at FAMILY INTERVENTION SPECIALIST intervention. I attest to the content of the Intraoperative Record and any orders documented therein. Any exceptions are noted below. Vascular Charges Angiography/Venography Procedure 1: Angiography/Venography charges: [id number] Aortography, abd + b/l iliofem LE, catheter, radiological S&I Procedure 2: Angiography/Venography charges: [id number] Initial 3rd order or selective abd, pelvic, or LE branch Additional Services Procedure 1: Additional Services Charges: 51453 Ultrasound guidance - vascular access Procedure 2: Additional Services Charges: 48929 Moderate sedation, each additional 15 min
[2021-10-12 07:40] LABS: BUN Creatinine Ratio 27.1 (10-20); Calcium 9.7 mg/dl (8.5-10.1); Creatinine Clr Calc Pharmacy 62.1 ml/min; Est GFR (African American) 81.1 ml/min; Potassium 4.5 mmol/L (3.5-5.1)
[2021-10-12] MEDS: INSULIN ASPART PER UNIT SC SCH (08:34)
[2021-10-12] MEDS: GABAPENTIN 100 MG CAP PO SCH (08:35)
[2021-10-12] MEDS: ATORVASTATIN 40 MG TAB PO SCH (08:35)
[2021-10-12] MEDS: THIAMINE HCL 100 MG in SYRINGE 9 ML IV SCH (08:35)
[2021-10-12] MEDS: FOLIC ACID 1 MG in SYRINGE 9.8 ML IV SCH (08:35)
[2021-10-12] MEDS: INSULIN GLARGINE SOLOSTAR 100 UNITS/ML 3 ML PEN SC SCH (08:36)
[2021-10-12] MEDS: METOPROLOL SUCC 50MG EXT REL TAB PO SCH (08:36)
[2021-10-12] MEDS: DOCUSATE SODIUM 100 MG CAP PO SCH (08:36)
[2021-10-12] MEDS: FLUTICASONE/VILANTEROL 200/25MCG 14 PUFFS/INHALER INH SCH (08:36)
[2021-10-12] MEDS: ENALAPRIL MALEATE 10 MG TAB PO SCH (08:36)
[2021-10-12] MEDS ORDERED: CLOPIDOGREL BISULFATE 75 MG TAB PO SCH (09:00)
--- NOTE | 2021-10-12 09:03 | Hospitalist Progress Note ---
Date of Service October 12, 2021 delayed entry date of service noted above Assessment & Plan (1) Fall: Plan: per Dr. Wiley's notes with addendum: 1. s/p Mechanical Fall: Mostly likely secondary to alcoholism, Hyponatremia - management per below - PT, OT: inpatient rehab, patient prefers home with PT/OT, care at home 2. Hyponatremia: Hypertonic in the setting of Alcohol Intake - Sodium 120. placed on fluid restriction - repeat Sodium 134 continue fluid restriction Lasix 40mg PO - Nephro consulted 3. Alcoholism: - Alcohol is 156 placed on Alcohol withdrawal protocol - no signs of overt withdrawal counseled on alcohol cessation 4. Chronic systolic congestive heart failure: Ejection fraction of 25%. Coronary Artery Disease, s/p Drug Eluting Stent to the LAD - no signs of overt volume overload - Rough Rib Grader consulted 10/11: Cardiac Cath: 1. Severe single vessel coronary artery disease -90% mid LAD, 60% ostial D1 2. Normal intracardiac filling pressure 3. Successful PCI of mid LAD with single drug-eluting stent (2.75 x 18 mm Xience; postdilated with 3.5 NC). - Plavix + Eliquis as per Cardiology Beta tosha, Statin, Enalapril 5. History of nonobstructive coronary artery disease: Continue his beta tosha, statin. 6. Chronic atrial fibrillation: Continue his Eliquis and beta tosha. 7. Diabetes: - A1c 8.7 - patient's family requesting to d/c oral meds and transition to Insulin Lantus 5 units BID Novolog sliding scale monitor as outpatient 8. History of chronic obstructive pulmonary disease: Currently stable, on home inhalers. 9. Hyperlipidemia: Continue statin. 10. Deep venous thrombosis prophylaxis: On Eliquis. DISPOSITION: d.c home with home health services PCP in 1 week Rough Rib Grader as scheduled Admission and Anticipated Discharge Date Admission Date: October 06, 2021 Subjective ff up for hyponatremia, etc seen resting in chair, comfortable states he feels fine overall no chest pain, dyspnea, palpitations, dizziness no other symptoms states he is ready and would like to be discharged family at bedside agreeable for discharge Review of Systems Review of Systems: all noted and negative except for above Physical Exam Physical Exam: General- oriented x 3, not in distress, speaks in sentences with no effort or accessory muscle use Eyes- anicteric Neck- no JVD Lungs- clear breath sounds bilaterally, no rales/wheezes Heart- normal rate, regular rhythm; no murmurs Abdomen- normal bowel sounds, nondistended, soft, nontender Extremities- no pretibial edema, no calf tenderness Neuro- alert, oriented x 3; no gross focal neurologic deficits Skin- warm & dry Results & Data Results & Data ([facility]) Vital Signs (Past 12 Hours) Vital Signs Temp Pulse Pulse Resp BP Pulse Ox 10/12/21 08:00 141/74 H 70 L 10/12/21 03:00 36.4 C L 64 18 146/82 H 97 10/11/21 23:00 36.5 C 68 18 118/72 95 10/11/21 22:17 66 all noted and reviewed including below (1) Fall Encounter type: initial encounter Qualified Code(s): W19.XXXA - Unspecified fall, initial encounter
--- NOTE | 2021-10-12 09:23 | Cardiology Progress Note ---
Date of Service October 12, 2021 Assessment & Plan (1) Chronic systolic congestive heart failure, NYHA class 2: (2) Non-ischemic cardiomyopathy: (3) CAD (coronary atherosclerotic disease): (4) PAD (peripheral artery disease): (5) Atrial fibrillation: (6) Alcohol abuse: (7) Hyponatremia: (8) Fall: (9) HTN (hypertension): Plan: 71 year old male with chronic LV systolic dysfunction , LVEF 30-35%, Chronic atrial fibrillation. Has history of underlying alcohol use. Patient found to have 90% mid LAD stenosis prompting of mid LAD with single drug-eluting stent (2.75 x 18 mm Xience; postdilated with 3.5 NC). Residual moderate to severe stenosis of the ostial D1 note for which medical treatment recommended. Non critical left main disease by IVUS. Normal LV filling pressures. EKG post PCI, EKG reveals new lateral T wave inversions, consistent with that expected given procedure. Although CAD present, etiology of the LV dysfunction may still be nonischemic,perhaps related to ETOH. Patient presented with what he describes as "sliding to floor" and was unable to get up. ETOH level high on presentation, Na low. Patient considered to be at high risk for bleeding complication given ETOH use and episode as noted above, however, at high risk for thrombotic complication given ongoing atrial fibrillation and now CAD, PCI to LAD. He is felt to be a poor candidate for cardioversion given nonadherence. Will therefore proceed with clopidogrel plus Eliquis (no aspirin). With regards to LE PAD. Severe PAD noted at time of angiogram on 10/11/21. Plan for return perhaps Monday10/15/21 for intervention of the left SFA to attempt to improve downstream flow. No targets for tibial bypass. With regards for risk stratification of sudden cardiac . No ventricular arrhythmias observed on telemetry. Moderate LV systolic dysfunction noted, LVEF 30-35%. Perhaps this will improve with PCI LAD and ETOH avoidance once again recommended.No LBBB, relatively narrow QRS, 106 ms, no bradycardia. Do not think pt would benefit from [employer] M[employer]GAGE BANKER device. With regards to primary prevention, AICD, believe risk of infection (given coexistent PAD and anticipated issues) outweighs prophylactic benefit at present. DISPOSITION: Stable for DC to home today, 10/12/21: Clopidogrel 75 mg daily (new) Eliquis 5 mg BID Metoprolol succinated 100 mg daily Atorvastatin 40 mg daily Furosemide 40 mg daily (resume 10/13/21) Enalapril 10 mg daily Jardiance 10 mg daily PRN SL nitro Arrangements in process to return for left leg intervention on 10/15/21. Take last dose of Eliquis in evening on 10/13/21. No Eliquis 10/14/21, None day of procedure 10/15/21. Continue clopidogrel without interruption. Hold furosemide ,Jardiance , 10/15/21. Case discussed in detail with Dr Moreno. Spoke with Grand-daughter -in-law Mandy. I contacted office to arrange cardio follow up visit. I have made arrangements to cancel upcoming outpt EP consult. Admission and Anticipated Discharge Date Admission Date: October 06, 2021 Subjective Patient seen in follow up. No complaints except eager to go home. Telemetry reveal rate controlled AF, no PVCs or NSVT. Tolerated cardiac catheterization, LE angiogram well on 10/11/21. Review of Systems Review of Systems: All systems reviewed & are unremarkable except as noted in HPI & below Physical Exam Physical Exam: Temp Pulse Resp BP Pulse Ox 36.4 C L 64 18 141/74 H 70 L (ERROR) 10/12/21 03:00 10/12/21 03:00 10/12/21 03:00 10/12/21 08:00 10/12/21 08:00 Constitutional: + ill appearing (chronically ill in appearance) and + thin; no acute distress Respiratory: normal respiratory effort, lungs clear to auscultation Cardiovascular: Rate/Rhythm: + irregularly irregular Heart Sounds: no murmur Vessels: no JVD Extremities: no edema Stigmata of PVC noted on lower legs bilaterally. Left focal pressure wound of left heal, non open. Gastrointestinal (Abdomen): normal bowel sounds, soft, nontender, no hepatosplenomegaly Neurologic: PERRL, EOMI, accommodation nl, no face palsy, no dysarthria Results & Data ([facility]) Vital Signs (Past 12 Hours) Vital Signs Temp Pulse Pulse Resp BP Pulse Ox 10/12/21 08:00 141/74 H 70 L 10/12/21 03:00 36.4 C L 64 18 146/82 H 97 10/11/21 23:00 36.5 C 68 18 118/72 95 10/11/21 22:17 66 Laboratory Results Comprehensive Metabolic Panel 10/12/21 Range/Units 06:15 Sodium 132 L (136-145) mmol/L Potassium 4.5 (3.5-5.1) mmol/L Chloride 100 (98-107) mmol/L Carbon Dioxide 24 (21-32) mmol/L BUN 29 H (6-23) mg/dl Creatinine 1.07 (0.6-1.4) mg/dl Glucose 103 H (70-99(Fasting)) mg/dl Calcium 9.7 (8.5-10.1) mg/dl Intake and Output 10/11/21 10/12/21 10/12/21 22:59 06:59 14:59 Intake Total 400 / 1326.567 200 / 1326.567 Output Total 200 / 1450 750 / 1450 Balance 200 / -123.433 -550 / -123.433 Intake: Oral 400 / 875 200 / 875 Output: Urine 200 / 1450 750 / 1450 Other: Weight 75.9 kg Weight Measurement Method Built in [facility] (1) Fall Encounter type: initial encounter Qualified Code(s): W19.XXXA - Unspecified fall, initial encounter
[2021-10-12] MEDS ORDERED: APIXABAN 2.5 MG TAB PO SCH (09:45)
--- NOTE | 2021-10-13 10:42 | Discharge Summary ---
Date of Service October 13, 2021 Admission HPI Per Admitting Provider HISTORY OF PRESENT ILLNESS: This is a 71-year-old male with past medical history significant type 2 diabetes, hyperlipidemia, COPD, asthma, chronic systolic CHF, nonobstructive CAD, chronic atrial fibrillation, history of paroxysmal supraventricular tachycardia, GERD, history of alcoholism, history of tobacco abuse, noncompliance with medication regimen. Comes with fall and alcoholism. The patient lives alone. He was found falling down by the neighbors and called his son and [id number] and EMS and he was brought in here. The patient is currently alert and awake, eating his dinner, sandwich. Labs showed sodium was 120, the alcohol level is 156. The patient says he drank about 10 cans of beer today. He drinks on some days more, some days less. Otherwise, he ambulates okay. Quit smoking many years ago. As per [id number], he is regularly taking his medications now. There is no swelling in the legs currently. The patient denies any headache. No dizziness, no blurred visions, no earache, no runny nose, no sore throat. Has some occasional cough. No chest pain, no shortness of breath, no nausea, no abdominal pain. Normal bowel and bladder movements. Hemodynamically stable. ALLERGIES: No known drug allergies. PAST MEDICAL HISTORY: As mentioned above. PAST SURGICAL HISTORY: Right bimalleolar ankle fracture repair, cardiac catheterization, cataract surgery. MEDICATIONS: The patient is on albuterol, Tylenol Extra Strength 1000 mg p.o. q. 6 hours p.r.n., albuterol 2.5 mg 2 puffs inhalation q. 4 hours p.r.n., atorvastatin 40 mg p.o. daily, Colace 100 mg p.o. daily, Eliquis 5 mg p.o. b.i.d., Jardiance 10 mg p.o. daily, Advair Diskus one inhalation b.i.d., Lasix 40 mg p.o. daily, gabapentin 100 mg p.o. daily, glipizide 10 mg p.o. b.i.d., metformin 500 mg p.o. b.i.d., metoprolol succinate 100 mg p.o. daily, ramipril 2.5 mg p.o. daily, spironolactone 25 mg p.o. daily. FAMILY HISTORY: Significant for brother had pancreatic cancer; mother had diabetes and lupus; sister has diabetes; father has MA. SOCIAL HISTORY: Former smoker, quit in 1995, smoked 1.5 packs a day for 30 years. Alcohol, as per Epic drinks five or so beers a day. No drug use. REVIEW OF SYSTEMS: As per HPI. Rest of the review of systems is negative. Admission Exam Per Admitting Provider PHYSICAL EXAMINATION: GENERAL: The patient is of moderate build, not in acute distress. VITAL SIGNS: Temperature 37.1, pulse 89, respiratory rate 18, blood pressure 131/85, oxygen 95% on room air. HEENT: Pupils equal, round and reactive to light. Oral mucosa moist. NECK: No JVD, no neck masses. CARDIOVASCULAR: S1 and S2 heard. Regular rate and rhythm. No murmur, no gallop. RESPIRATORY SYSTEM: Normal AP diameter. No accessory muscle use. No wheezing, no crackles. ABDOMEN: Soft, bowel sounds present, nontender, no distention. CENTRAL NERVOUS SYSTEM: Cranial nerves II through XII are grossly intact, nonfo fito. LUNGS: No lower extremity edema present. Mild erythematous changes in the feet. Principal Diagnosis HYPONATREMIA ALCOHOL INTOXICATION CORONARY ARTERY DISEASE S/P DRUG ELUTING STENT TO THE LAD CONGESTIVE HEART FAILURE Discharge Exam General- oriented x 3, not in distress, speaks in sentences with no effort or accessory muscle use Eyes- anicteric Neck- no JVD Lungs- clear breath sounds bilaterally, no rales/wheezes Heart- normal rate, regular rhythm; no murmurs Abdomen- normal bowel sounds, nondistended, soft, nontender Extremities- no pretibial edema, no calf tenderness Neuro- alert, oriented x 3; no gross focal neurologic deficits Skin- warm & dry Discharge Data Allergies Allergy/AdvReac Type Severity Reaction Status Date / Time No Known Allergies Allergy Verified 10/06/21 20:35 Consultations 10/06/21 20:05 ED Decision to Admit Stat 10/07/21 08:00 Consult Nephrology Routine 10/07/21 10:13 Consult Cardiology Routine 10/11/21 11:41 Consult Cardiac Rehabilitation Routine Procedures Performed Operation Date: 10/11/21 08:00 Actual Procedures p Cineradiography w/Routine Exam - Jerod Moreno MD p Aortogram, Abdominal w/Bilat Runoff - Jerod Moreno MD p Cath, Left with Cors and Vent - Jerod Moreno MD s IVUS Coronary Single Vessel - Jerod Moreno MD s SC Select Cath ALEP 3rd Order - Jerod Moreno MD s Drug Eluting Stent SGl Vessel - MD odette Pichardo Ultrasound Vascular Access - Jerod Moreno MD Ordered Studies 10/06/21 18:15 CT cervical spine wo con Stat IMPRESSION: 1. There is no evidence of fracture or subluxation involving the cervical spine. 2. Osteopenia and spondylotic change as above. CT head/brain wo con Stat FINDINGS: Brain parenchyma: There are age-related involutional changes noting mild subcortical and periventricular microangiopathic change. There is no hemorrhage, mass effect, or evidence of acute territorial ischemia by CT criteria. A chronic lacunar infarct is noted in the left basal ganglia. Hicks-white matter differentiation is preserved. No extra-axial fluid collection is seen. Ventricles, sulci, cisterns: Prominent secondary to involutional change. Intracranial vasculature: There is atherosclerotic calcification of the cavernous carotid and vertebral arteries. Calvarium: The skeletal structures are osteopenic. No depressed calvarial f racture is identified. Sinuses and mastoids: There is evidence of previous paranasal sinus surgery. The visualized paranasal sinuses are clear. The mastoid air cells are well pneumatized. Orbits: The bony orbits are grossly intact. IMPRESSION: There is no hemorrhage, mass effect, or evidence of acute territorial ischemia by CT criteria. ACT 112: Negative or not required by law. Electronically signed by: Darren Delgadillo M.D. 10/06/2021 7:57 PM 10/11/21 06:49 CL Cath Imgs for PACS use only Routine 10/11/21 11:07 CL IVUS Coronary Single Vessel Routine Hospital Course (1) Fall: per Dr. Wiley's notes with addendum: 1. s/p Mechanical Fall: Mostly likely secondary to alcoholism, Hyponatremia - management per below - PT, OT: inpatient rehab, patient prefers home with PT/OT, care at home 2. Hyponatremia: Hypertonic in the setting of Alcohol Intake - Sodium 120. placed on fluid restriction - repeat Sodium 134 continue fluid restriction Lasix 40mg PO - Nephro consulted 3. Alcoholism: - Alcohol is 156 placed on Alcohol withdrawal protocol - no signs of overt withdrawal counseled on alcohol cessation 4. Chronic systolic congestive heart failure: Ejection fraction of 25%. Coronary Artery Disease, s/p Drug Eluting Stent to the LAD - no signs of overt volume overload - Human Service Coordinator consulted 10/11: Cardiac Cath: 1. Severe single vessel coronary artery disease -90% mid LAD, 60% ostial D1 2. Normal intracardiac filling pressure 3. Successful PCI of mid LAD with single drug-eluting stent (2.75 x 18 mm Xience; postdilated with 3.5 NC). - Plavix + Eliquis as per Cardiology Beta tosha, Statin, Enalapril 5. History of nonobstructive coronary artery disease: Continue his beta tosha, statin. 6. Chronic atrial fibrillation: Continue his Eliquis and beta tosha. 7. Diabetes: - A1c 8.7 - patient's family requesting to d/c oral meds and transition to Insulin Lantus 5 units BID Novolog sliding scale monitor as outpatient 8. History of chronic obstructive pulmonary disease: Currently stable, on home inhalers. 9. Hyperlipidemia: Continue statin. 10. Deep venous thrombosis prophylaxis: On Eliquis. DISPOSITION: d.c home with home health services PCP in 1 week Human Service Coordinator as scheduled Total Time Total Time Spent Total Time Spent (In Minutes): >30 MINUTES Discharge Plan Discharge Items Patient Disposition: Home - Home Health Services Reason For Visit: FALL, ALOCHOLISM Discharge Diagnosis: HYPONATREMIA ALCOHOL INTOXICATION CORONARY ARTERY DISEASE S/P DRUG ELUTING STENT TO LAD Activity: As commented below Activity Comment: FALL PRECAUTIONS, ALWAYS WITH A WALKER, WITH ASSISTANCE, PT/OT AT HOME Lifting: Wait until after follow-up appointment Exercise/Sports: Wait until after follow-up appointment Driving/Machine Use: NO DRIVING UNTIL RE-EVALUATED AND ALLOWED BY PRIMARY CARE PHYSICIAN Non-emergency contact: Primary Care Provider Call non-emergency contact if: you have any medication questions, your symptoms worsen, your pain is not controlled, your pain is worsening, your pain is unusual for you, your pain is concerning for you and you have a fever Follow-up/Referrals: David Bone DO [Human Service Coordinator] - Samir De MD [Primary Care Provider] - (Date & Time 10/15/2021 12:00 PM Provider Ronald Goldstein MD Department Family Medicine [facility] ) Diet: Carb Consistent or DM2 and Heart Healthy Fluids: 1800ml (7 cups) Addtl Attending Provider Instructions: PLEASE REFER TO YOUR NEW MEDICATION LIST AND FOLLOW INSTRUCTIONS CAREFULLY. YOUR NEW MEDICATIONS INCLUDE: PLAVIX INSULIN LANTUS INSULIN NOVOLOG PER SLIDING SCALE Goal BSG Range: Low _120 mg/dL, High 150_mg/dL Correction Factor: 30_mg/dL/unit Carbohydrate ratio = _20_ g/unit BSGs ACHS if eating, q6h if npo NITROGLYCERIN NEEDED FOR CHEST PAIN RESUME LASIX TOMORROW 10/13/21. Arrangements in process to return for left leg intervention on 10/15/21. Take last dose of Eliquis in evening on 10/13/21. No Eliquis 10/14/21, None day of procedure 10/15/21. Continue clopidogrel without interruption. Hold furosemide 10/15/21. PLEASE CALL YOUR PRIMARY CARE PHYSICIAN OR RETURN TO THE ER IF WITH WORSENING OF SYMPTOMS, INCLUDING CHEST PAIN, SHORTNESS OF BREATH, WEAKNESS, DIZZINESS. FOLLOW UP WITH PRIMARY CARE PHYSICIAN IN 1 WEEK. FOLLOW UP WITH UI LEAD DEVELOPER IN 2 WEEKS. PLEASE CALL THE CLINIC FOR AN APPOINTMENT. NO ALCOHOL/SMOKING. Call your Primary Care doctor if any of the following symptoms or problems start or get worse: Shortness of breath or difficulty breathing Wake up at night short of breath Chest pain Cough Swelling of your hands, feet, or legs More fatigued or tired with your normal activity Palpitations - sudden fast heart beats WEIGHT Weigh yourself every morning after using the bathroom. Use the same scale. Wear the same amount of clothing. Write your weight down on a chart. Call your Primary Care doctor if you gain more than 2-3 pounds in 1-2 days. MEDICATIONS Use this discharge instruction sheet for medication instructions. Take your medications at the time your doctor ordered. Do not skip a dose of your medicines. If you miss a dose of medicine, take it as soon as possible, but DO NOT DOUBLE A DOSE. Read your medicine information when you get home. Know all of the side effects of your medicine. If in doubt, ask your pharmacist Call your Primary Care doctor's office if you have any side effects. Be sure all of your doctors know what medicine and herbs you take (including cold, flu, and herbal medicine). Take the following with you to your follow-up doctor appointments: Weight Chart Medication List List of questions Do not drink excessive alcohol, beer or wine. Who to Call and When: Call 911 or go to the Emergency Room if: If at any time you feel your situation is an emergency You have tightness or pain in your chest that does not go away with rest or Nitroglycerin You are very short of breath even with rest . Pending Studies at Discharge: Yes Studies:: REPEAT BLOODWORK (BASIC METABOLIC PROFILE) ON FOLLOW UP WITH PRIMARY CARE PHYSICIAN IN 1 WEEK. Stand-Alone Forms: My QWiPS, Smoking Cessation Medications and DC Order Prescriptions: New enalapril maleate 10 mg Tablet 10 mg PO DAILY 30 Days Qty: 30 RF: 2 clopidogrel 75 mg Tablet 75 mg PO QAM 30 Days Qty: 30 RF: 0 insulin aspart U-100 [Novolog U-100 Insulin aspart] 100 unit/mL Solution 1 unit SC ACHS Qty: 500 RF: 2 Lantus Solostar U-100 Insulin 100 unit/mL (3 mL) Insulin Pen 5 unit SC BID Qty: 300 RF: 2 nitroglycerin [Nitrostat] 0.4 mg Tablet, Sublingual 0.4 mg sublingual UD PRN (Reason: chest pain) Qty: 10 RF: 0 Continued atorvastatin 40 mg tablet 40 mg PO DAILY RF: 0 fluticasone propion-salmeterol [Advair Diskus] 250-50 mcg/dose Blister With Device 1 inh INHALATION BID RF: 0 albuterol sulfate 2.5 mg /3 mL (0.083 %) solution for nebulization 2.5 mg inhalation Q4H PRN (Reason: Wheezing) RF: 0 metoprolol succinate 100 mg Tablet Extended Release 24 Hr 100 mg PO DAILY RF: 0 acetaminophen [Tylenol Extra Strength] 500 mg Tablet 1,000 mg PO Q6H PRN (Reason: Pain) RF: 0 docusate sodium 100 mg capsule 100 mg PO DAILY RF: 0 alum-mag hydroxide-simeth 200-200-20 mg/5 mL Suspension 15 ml PO Q6H PRN (Reason: Upset Stomach) RF: 0 albuterol sulfate 90 mcg/actuation HFA aerosol inhaler 2 puff INHALATION Q4H PRN (Reason: Wheezing/Dyspnea) RF: 0 bismuth subsalicylate 525 mg/15 mL Suspension 525 mg PO QID PRN (Reason: upset stomach) RF: 0 spironolactone 25 mg Tablet 25 mg PO DAILY Qty: 30 RF: 0 furosemide 20 mg tablet 40 mg PO DAILY Qty: 60 RF: 0 gabapentin 100 mg capsule 100 mg PO TID RF: 0 Eliquis 5 mg tablet 5 mg PO BID 30 Days Qty: 60 RF: 2 Discontinued glipizide 10 mg tablet 10 mg PO BID RF: 0 metformin 500 mg tablet extended release 24 hr 500 mg PO BID RF: 0 Jardiance 10 mg tablet 10 mg PO DAILY Qty: 30 RF: 0 ramipril 2.5 mg capsule 2.5 mg PO DAILY RF: 0 Discharge Orders: Discharge Order (Routine); Ordered 10/12/21 Ordered By: Jagjit Iverson/Other Patient Handouts: Managing Type 2 Diabetes Admission Data Admit Date/Time: 10/06/21 22:22 Attending Provider: Jagjit Johnson Admit Provider: Jagjit Johnson Primary Care Provider: Samir De Other Providers: Levi Wiley ; Mojgan Morrow ; Shon Chaves ; Katie Hernandez ; Rosa Marie ; Zoltan Guo ; Fili Golden ; Shakir [facility] Other Interventions: Discharge Summary Assessment (RN) Last Done: 10/12/21 10:22
== END 2021-10-12 10:55 | disposition home health service (06) | DRG 982 ==
LOC: ED 17:58 → 2S 22:22
PROC: [UNRECOGNIZED PROCEDURE] (2021-10-11 08:00)

== ENCOUNTER 2022-08-02 05:10 | Observation (INO) ==
[2022-08-02] MEDS ORDERED: LACTATED RINGER'S 1,000 ML IV ONE (05:22)
[2022-08-02] MEDS ORDERED: PANTOprazole 40 MG in SYRINGE 0 ML IV ONE (05:23)
[2022-08-02] MEDS ORDERED: LORazepam 2 MG/1 ML VIAL IV STA ×2 (05:23→06:55)
--- NOTE | 2022-08-02 05:35 | Emergency Department Note ---
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 Patient states he has been having diarrhea for 3 weeks with intermittent abdominal pain. Patient states today he had accompanying nausea and vomiting. Patient is concerned for dehydration. Patient admits to daily alcohol use, primarily beer. He states his last drink was 8 hours ago. Patient denies any recent sick contacts. He denies any dietary changes or medication changes. Patient is anticoagulated due to history of atrial fibrillation and also has a history of heart failure. Patient states he is also a smoker and has COPD. Patient states he has noticed blood intermittently with the diarrhea but feels that it is secondary to his hemorrhoids. He states blood was bright red, no black stools or passage of clots. He denies any blood in the emesis earlier today. Patient states he did fall yesterday at home and landed on his side. He denies any head injury or loss of consciousness during this event. EMS reports evidence of poor hygiene and care at residence. PAST MEDICAL HISTORY:See Below PAST SURGICAL HISTORY:See Below FAMILY HISTORY:See Below SOCIAL HISTORY:See Below HOME MEDICATIONS:See Below ALLERGIES:See Below VITALS:See Below PHYSICAL EXAMINATION: GENERAL: alert, unwell appearing, well nourished, no distress, non-toxic EYE EXAM: normal conjunctiva, PERRL and EOM's grossly intact OROPHARYNX: no exudate, no erythema, lips, buccal mucosa, and tongue normal and mucous membranes are dry NECK: supple, no nuchal rigidity, no adenopathy, non-tender LUNGS: Clear to auscultation. Normal chest wall mechanics, no w/r/r HEART: no murmurs, S1 normal and S2 normal ABDOMEN: abdomen soft, non-tender, normo-active bowel sounds, no masses, no rebound or guarding. Dull to percussion. BACK: Back is symmetrical on inspection and there is no deformity, no midline tenderness, no CVA tenderness. SKIN: no rashes, petechiae, orbruising UPPER EXTREMITIES: upper extremities are grossly normal. FROM, nml pulses b/l. LOWER EXTREMITIES: No pitting edema. FROM, decreased pulses b/l, b/l feet cool to touch, nml cap refill. NEURO EXAM: Normal sensorium, cranial nerves II-XII grossly intact, normal speech, no facial droop,nogross weakness of arms, no gross weakness of legs. Gross sensation intact. No ataxia. Mild tremors noted bilaterally. Vital Signs: reviewed and remarkable Differential Diagnosis: Gastroenteritis, alcohol withdrawal, alcohol abuse, PUD, esophageal Perforation, Electrolyte Abnormality, Dehydration, Intraabdominal Infection, UTI/Pyelonephritis, Bowel Obstruction, Biliary Pathology, occult trauma, amongst other pathology entertained. MEDICAL DECISION MAKING: This is a 72 yo male who presents to the ER via ems due to concern for diarrhea, n/v, and dehydration. Patient ill appearing and tremulous on arrival and admits to frequent beer drinking. VS stable, pt in a.fib which he has history of. Patient does admit to fall earlier this morning and he is anticoagulated. No evidence of significant trauma on exam and VS stable while in the ER. Patient was cautiously hydrated due to unknown extent of cardiac history. He was also given ativan for suspected alcohol withdraw. Labs mostly reassuring, although troponin was elevated. Mild hyponatremia likely from beer consumption chronically. CT's reassuring without acute trauma. Diarrheal illness noted as was colonic narrowing. Patient stated last colonoscopy 2010. CXR reassuring. We discussed all results at bedside and discussed options for disposition. Patient in agreement with plan for additional inpatient evaluation and mgmt. CAse discussed with hospitalist. Consultation(s): 0844: Discussed with Dr. Teague. ER Treatment Provided: See below 0605: Pt's HR improved. 0820: Mild tremors still noted. Patient updated on results. VS stable. Diagnostics Interpreted By Me: -ECG: Atrial fibrillation at a rate of 84, normal QRS and QTc, leftward axis, PVC noted, nonspecific ST/T wave changes -Cardiac Monitoring: An order was placed for continuous cardiac monitoring. The monitor shows a rate of 98 with atrial fibrillation rhythm. -Laboratory studies: As stated above and show below. -Imaging studies: X-ray Chest: A single view study of the chest was reviewed and was negative for cardiomegaly, focal infiltrate, effusion, pulmonary edema, or wide mediastinum. Triage Nursing Note Reviewed Prior/Outside Records Reviewed Procedures: [] Critical Care: [] Past Med/Surg History Medical History Acute hyponatremia Alcohol abuse Alcohol abuse Anxiety Atrial fibrillation CHF (congestive heart failure) COPD (chronic obstructive pulmonary disease) COPD (chronic obstructive pulmonary disease) DM2 (diabetes mellitus, type 2) Elevated troponin Fall Fracture dislocation of right ankle GERD (gastroesophageal reflux disease) History of anesthesia reaction History of left heart catheterization (LHC) History of myocardial infarction History of stroke HLD (hyperlipidemia) [place] (hard of hearing) HTN (hypertension) Hypervolemia Left ventricular dysfunction Osteoarthritis PAD (peripheral artery disease) Poor historian Syndesmotic disruption of right ankle Surgical History History of ankle surgery History of cardiac cath History of cervical spinal surgery History of colonoscopy History of esophagogastroduodenoscopy (EGD) History of non-cataract eye surgery History of vascular surgery Family History Brother Pancreatic cancer Cancer Mother Diabetes Myocardial infarction Sister Diabetes Father Heart disease Myocardial infarction Other No family history of adverse response to anesthesia Denies family history of Ovarian cancer Prostate cancer Breast cancer Colorectal cancer Social History Smoking Status: Never smoker Tobacco Type: Cigarettes Second Hand Exposure: No; Hx Alcohol Use: Yes Alcohol type: beer Alcohol Intake Frequency: 4 or More x per/Week Hx Substance Use: No Preferred Language: Mohawk Communication Ability: Effective Visual Impairment: No Limitations Hearing Ability: Hard of Hearing Debate Director Required: No Beliefs That Will Affect Care: None marital status: Single Current Living Situation: Alone current occupational status: retired How many Children do You have: 4 Other Information That Helps Us Care for You: No Feels Safe at Home: Yes Safety Concerns: Feels Safe At This Time Childhood Exposure to Second-Hand Smoke: Yes caffeine: Yes (coffee) during the past year weight has: remained stable Dental Care, Regularly: No Physical Activity Frequency: Daily Seatbelt Use: always Sunscreen Use: No Assistive Devices: Cane and Walker Allergies Allergies Allergy/AdvReac Type Severity Reaction Status Date / Time No Known Allergies Allergy Verified 12/10/21 13:32 Home Meds Home Medications Medication Instructions Recorded Confirmed acetaminophen 500 mg tablet 1,000 mg PO Q6H PRN Pain 08/22/21 12/10/21 (Tylenol Extra Strength) aluminum-mag hydroxide-simethicone 15 ml PO Q6H PRN Upset Stomach 08/22/21 12/10/21 200 mg-200 mg-20 mg/5 mL oral susp bismuth subsalicylate 525 mg/15 mL 525 mg PO QID PRN upset stomach 08/22/21 12/10/21 oral suspension fluticasone 250 mcg-salmeterol 50 1 inh inhalation BID 08/22/21 12/10/21 mcg/dose blistr powdr for inhalation (Advair Diskus) Previous Rx's Medication Instructions Recorded nitroglycerin 0.4 mg sublingual 0.4 mg sublingual UD PRN chest 10/12/21 tablet (Nitrostat) pain #10 tabs apixaban 5 mg tablet (Eliquis) 5 mg PO BID 30 days #60 tabs 11/01/21 atorvastatin 40 mg tablet 40 mg PO DAILY #30 tabs 11/01/21 clopidogrel 75 mg tablet 75 mg PO QAM 30 days #30 tabs 11/01/21 enalapril maleate 10 mg tablet 10 mg PO DAILY 30 days #30 tabs 11/01/21 furosemide 20 mg tablet 40 mg PO DAILY #60 tabs 11/01/21 metoprolol succinate 100 mg 100 mg PO DAILY #30 tabs 11/01/21 tablet,extended release 24 hr albuterol sulfate 90 mcg/actuation 2 puff inhalation Q4H PRN 11/10/21 aerosol inhaler Wheezing/Dyspnea #8.5 grams spironolactone 25 mg tablet 25 mg PO DAILY #30 tabs 11/29/21 insulin aspart U-100 100 unit/mL 1 unit (0.01 mL) SC ACHS #500 mL 12/10/21 subcutaneous solution (Novolog U-100 Insulin aspart) insulin glargine 100 unit/mL (3 5 unit (0.05 mL) SC BID #300 mL 12/10/21 mL) subcutaneous pen (Lantus Solostar U-100 Insulin) dapagliflozin 5 mg tablet (Farxiga) 5 mg PO DAILY #90 tabs 02/07/22 peg 3350-electrolytes 236 240 ml PO Q10M #4,000 mL 06/17/22 gram-22.74 gram-6.74 gram-5.86 gram solution (GaviLyte-G) Results & Data (ED) Vital Signs Vital Signs - 24 hr 08/02/22 05:17 08/02/22 05:30 08/02/22 06:00 Temperature 36.2 C L Temperature Source Axillary Pulse Rate 96 H 84 82 Pulse Rate from SpO2 Sensor Respiratory Rate 15 15 Blood Pressure 131/82 118/77 108/72 Blood Pressure Mean 98 90 84 Pulse Oximetry 98 98 94 Oxygen Delivery Method Room Air Room Air Room Air Sepsis Recent Fever Within 48 Hours No Sepsis New/Unexplained Change in Mental Status No Sepsis Action Taken by Nursing No Action Required 08/02/22 07:30 Temperature Temperature Source Pulse Rate 74 Pulse Rate from SpO2 Sensor 72 Respiratory Rate 18 Blood Pressure 145/92 H Blood Pressure Mean 109 Pulse Oximetry 97 Oxygen Delivery Method Sepsis Recent Fever Within 48 Hours Sepsis New/Unexplained Change in Mental Status Sepsis Action Taken by Nursing Laboratory Data 08/02/22 05:20 08/02/22 05:20 Lab Results 08/02/22 08/02/22 08/02/22 Range/Units 05:20 05:20 05:20 WBC 6.48 (4.8-10.8) K/ul RBC 5.01 (4.70-6.10) M/uL Hgb 15.6 (14.0-18.0) g/dl Hct 43.3 (42.0-52.0) % MCV 86.4 (80.0-100.0) fL MCH 31.1 (25.0-34.0) pg MCHC 36.0 (32.0-36.0) g/dL RDW Std Deviation 38.5 (36.4-46.3) fL RDW Coeff of Cole 12.2 (11.5-14.5) % Plt Count 190 (130-400) K/uL MPV 10.6 (9.4-12.4) fL Immature Gran % (Auto) 0.5 % Neut % (Auto) 63.5 % Lymph % (Auto) 17.0 % Sargent % (Auto) 17.0 % Eos % (Auto) 1.1 % Baso % (Auto) 0.9 % Neut # (Auto) 4.12 (1.40-6.50) K/uL Lymph # (Auto) 1.10 L (1.2-3.4) K/uL Sargent # (Auto) 1.10 H (0.11-0.59) K/uL Eos # (Auto) 0.07 (0-0.50) K/uL Baso # (Auto) 0.06 (0-0.2) K/uL Immature Gran # (Auto) 0.03 (0.01-0.20) K/uL PT 11.9 (9.0-12.0) Seconds INR 1.1 (0.9-1.1) Sodium 132 L (136-145) mmol/L Potassium 4.2 (3.5-5.1) mmol/L Chloride 97 L (98-107) mmol/L Carbon Dioxide 22 (21-32) mmol/L Anion Gap 13 H (3-11) BUN 17 (6-23) mg/dl Creatinine 1.51 H (0.6-1.4) mg/dl Est Cr Clr Drug Dosing 43.4 ml/min Est GFR ( Amer) 53.1 ml/min Est GFR (Non-Af Amer) 45.8 ml/min BUN/Creatinine Ratio 11.3 (10-20) Glucose 153 H (70-99(Fasting)) mg/dl Calcium 9.5 (8.5-10.1) mg/dl Magnesium 2.2 (1.7-2.4) mg/dl Total Bilirubin 1.4 H (0.2-1.0) mg/dl AST 31 (13-39) U/L ALT 22 (7-52) U/L Alkaline Phosphatase 88 (34-104) U/L Troponin I High Sens 29.8 H (0-20) pg/ml Total Protein 7.6 (6.0-8.3) gm/dl Albumin 3.9 (3.4-5.0) gm/dl Globulin 3.7 (2.5-4.0) gm/dl Albumin/Globulin Ratio 1.1 (0.9-2) Lipase 46 (11-82) U/L TSH (0.300-4.500) uIu/ml Free T4 (0.61-1.60) ng/dl Ethyl Alcohol mg/dL (<10.0) mg/dl Adenovirus (PCR) (NotDetected) B. pertussis DNA (PCR) (NotDetected) B.parapertussis DNA PCR (NotDetected) C. pneumoniae DNA (PCR) (NotDetected) Coronavirus OC43 (PCR) (NotDetected) Coronavirus HKU1 (PCR) (NotDetected) Coronavirus 229E (PCR) (NotDetected) SARS-CoV-2 (PCR) (NotDetected) Coronavirus NL63 (PCR) (NotDetected) Human Metapneumovir PCR (NotDetected) Influenza Type A (PCR) (NotDetected) Influenza Type B (PCR) (NotDetected) M. pneumoniae (PCR) (NotDetected) Parainfluenza 1 (PCR) (NotDetected) Parainfluenza 2 (PCR) (NotDetected) Parainfluenza 3 (PCR) (NotDetected) Parainfluenza 4 (PCR) (NotDetected) RSV (PCR) (NotDetected) Entero/Rhino (PCR) (NotDetected) 08/02/22 08/02/22 08/02/22 Range/Units 05:20 05:20 05:20 WBC (4.8-10.8) K/ul RBC (4.70-6.10) M/uL Hgb (14.0-18.0) g/dl Hct (42.0-52.0) % MCV (80.0-100.0) fL MCH (25.0-34.0) pg MCHC (32.0-36.0) g/dL RDW Std Deviation (36.4-46.3) fL RDW Coeff of Cole (11.5-14.5) % Plt Count (130-400) K/uL MPV (9.4-12.4) fL Immature Gran % (Auto) % Neut % (Auto) % Lymph % (Auto) % Sargent % (Auto) % Eos % (Auto) % Baso % (Auto) % Neut # (Auto) (1.40-6.50) K/uL Lymph # (Auto) (1.2-3.4) K/uL Sargent # (Auto) (0.11-0.59) K/uL Eos # (Auto) (0-0.50) K/uL Baso # (Auto) (0-0.2) K/uL Immature Gran # (Auto) (0.01-0.20) K/uL PT (9.0-12.0) Seconds INR (0.9-1.1) Sodium (136-145) mmol/L Potassium (3.5-5.1) mmol/L Chloride (98-107) mmol/L Carbon Dioxide (21-32) mmol/L Anion Gap (3-11) BUN (6-23) mg/dl Creatinine (0.6-1.4) mg/dl Est Cr Clr Drug Dosing ml/min Est GFR ( Amer) ml/min Est GFR (Non-Af Amer) ml/min BUN/Creatinine Ratio (10-20) Glucose (70-99(Fasting)) mg/dl Calcium (8.5-10.1) mg/dl Magnesium (1.7-2.4) mg/dl Total Bilirubin (0.2-1.0) mg/dl AST (13-39) U/L ALT (7-52) U/L Alkaline Phosphatase (34-104) U/L Troponin I High Sens (0-20) pg/ml Total Protein (6.0-8.3) gm/dl Albumin (3.4-5.0) gm/dl Globulin (2.5-4.0) gm/dl Albumin/Globulin Ratio (0.9-2) Lipase (11-82) U/L TSH 7.869 H (0.300-4.500) uIu/ml Free T4 0.88 (0.61-1.60) ng/dl Ethyl Alcohol mg/dL < 10.0 (<10.0) mg/dl Adenovirus (PCR) Not Detected (NotDetected) B. pertussis DNA (PCR) Not Detected (NotDetected) B.parapertussis DNA PCR Not Detected (NotDetected) C. pneumoniae DNA (PCR) Not Detected (NotDetected) Coronavirus OC43 (PCR) Not Detected (NotDetected) Coronavirus HKU1 (PCR) Not Detected (NotDetected) Coronavirus 229E (PCR) Not Detected (NotDetected) SARS-CoV-2 (PCR) Not Detected (NotDetected) Coronavirus NL63 (PCR) Not Detected (NotDetected) Human Metapneumovir PCR Not Detected (NotDetected) Influenza Type A (PCR) Not Detected (NotDetected) Influenza Type B (PCR) Not Detected (NotDetected) M. pneumoniae (PCR) Not Detected (NotDetected) Parainfluenza 1 (PCR) Not Detected (NotDetected) Parainfluenza 2 (PCR) Not Detected (NotDetected) Parainfluenza 3 (PCR) Not Detected (NotDetected) Parainfluenza 4 (PCR) Not Detected (NotDetected) RSV (PCR) Not Detected (NotDetected) Entero/Rhino (PCR) Not Detected (NotDetected) Administered Medications Atorvastatin Calcium (Atorvastatin 40 Mg Tab) 40 mg PO DAILY [facility] Stop: 09/01/22 10:20 Last Admin: 08/03/22 08:07 Dose: 40 mg Documented By: Tony Admin: 08/02/22 12:51 Dose: 40 mg Documented By: MT Clopidogrel Bisulfate (Clopidogrel Bisulfate 75 Mg Tab) 75 mg PO QAM [facility] Stop: 09/01/22 09:55 Last Admin: 08/03/22 08:07 Dose: 75 mg Documented By: Tony Admin: 08/02/22 12:51 Dose: 75 mg Documented By: ZAKIYA Fluticasone/Vilanterol (Fluticasone/Vilanterol 200/25mcg 14 Puffs/Inhaler) 1 puffs INH DAILY [facility] Stop: 09/01/22 10:29 Last Admin: 08/03/22 08:05 Dose: 1 puffs Documented By: Tony Admin: 08/02/22 12:52 Dose: 1 puffs Documented By: MT Folic Acid (Folic Acid 1 Mg Tab) 1 mg PO QAM [facility] Stop: 09/01/22 09:55 Last Admin: 08/03/22 08:07 Dose: 1 mg Documented By: Tony Admin: 08/02/22 12:51 Dose: 1 mg Documented By: MT Pantoprazole Sodium 40 mg/ (Syringe) 10 mls @ 5 mls/min IV BID [facility] Stop: 09/01/22 09:55 Last Admin: 08/03/22 08:14 Dose: 5 mls/min Documented By: Admin: 08/02/22 21:24 Dose: 5 mls/min Documented By: Admin: 08/02/22 12:48 Dose: 5 mls/min Documented By: ZAKIYA Insulin Aspart (Insulin Aspart Per Unit) 0 units SC ACHS [facility] Stop: 09/01/22 11:29 Last Admin: 08/02/22 21:23 Dose: 1 units Documented By: NIKKI Co-signed By: KRISTINA Admin: 08/02/22 18:12 Dose: Not Given Documented By: Admin: 08/02/22 13:09 Dose: 3 units Documented By: ZAKIAY Co-signed By: JAYSHREE Insulin Glargine (Lantus Per Unit Charge) 5 units SQ BID [facility] Stop: 09/01/22 10:14 Last Admin: 08/02/22 21:23 Dose: 5 units Documented By: NIKKI Co-signed By: KRISTINA Admin: 08/02/22 13:08 Dose: 5 units Documented By: ZAKIYA Co-signed By: JAYSHREE Metoprolol Succinate (Metoprolol Succ 50mg Ext Rel Tab) 100 mg PO DAILY [facility] Stop: 09/01/22 09:55 Last Admin: 08/03/22 08:07 Dose: 100 mg Documented By: Admin: 08/02/22 12:51 Dose: 100 mg Documented By: ZAKIYA Sucralfate (Sucralfate 1 Gm/10 Ml Udc) 1 gm PO QID [facility] Stop: 09/01/22 09:55 Last Admin: 08/03/22 08:06 Dose: 1 gm Documented By: Admin: 08/02/22 21:24 Dose: 1 gm Documented By: Admin: 08/02/22 18:12 Dose: 1 gm Documented By: Admin: 08/02/22 12:54 Dose: Not Given Documented By: Admin: 08/02/22 12:49 Dose: 1 gm Documented By: ZAKIYA Thiamine HCl (Thiamine Hcl 100 Mg Tab) 100 mg PO QAM [facility] Stop: 09/01/22 09:55 Last Admin: 08/03/22 08:07 Dose: 100 mg Documented By: Admin: 08/02/22 12:51 Dose: 100 mg Documented By: ZAKIYA Discontinued Medications Gabapentin (Gabapentin 600 Mg Tab) 1,200 mg PO NOW ONE Stop: 08/02/22 10:46 Last Admin: 08/02/22 15:31 Dose: 1,200 mg Documented By: [email or web address] Gabapentin (Gabapentin 600 Mg Tab) 600 mg PO Q6H [facility] Stop: 08/03/22 04:01 Last Admin: 08/03/22 03:43 Dose: 600 mg Documented By: Admin: 08/02/22 21:24 Dose: 600 mg Documented By: NIKKI Lactated Ringer's (Lr) 1,000 mls @ 250 mls/hr IV .Q4H ONE Stop: 08/02/22 09:21 Last Infusion: 08/02/22 13:26 Dose: 0 mls/hr Documented By: Admin: 08/02/22 05:31 Dose: 250 mls/hr Documented By: CLARKE Pantoprazole Sodium 40 mg/ (Syringe) 10 mls @ 5 mls/min IV NOW ONE Stop: 08/02/22 05:24 Last Admin: 08/02/22 06:51 Dose: 5 mls/min Documented By: MED Multivitamins 10 ml/ Thiamine HCl 100 mg/ Folic Acid 1 mg/Sodium Chloride 1,011.2 mls @ 100 mls/hr IV .Q10H7M ONE Stop: 08/02/22 20:51 Last Infusion: 08/03/22 00:48 Dose: 0 mls/hr Documented By: Admin: 08/02/22 12:53 Dose: 100 mls/hr Documented By: ZAKIYA Ioversol (Optiray 350 100ml) 90 ml IV ONCE ONE Stop: 08/02/22 06:44 Last Admin: 08/02/22 06:43 Dose: 90 ml Documented By: PETTY Lorazepam (Lorazepam 2 Mg/1 Ml Vial) 1 mg IV NOW STA Stop: 08/02/22 05:24 Last Admin: 08/02/22 05:28 Dose: 1 mg Documented By: CLARKE Lorazepam (Lorazepam 2 Mg/1 Ml Vial) 1 mg IV NOW STA Stop: 08/02/22 06:56 Last Admin: 08/02/22 07:40 Dose: 1 mg Documented By: ZAKIYA Imaging Data Radiologist's Impression: Abdomen/Pelvis CT 08/02/22 05:[address] WITH IV CONTRAST CT DOSE: 1261.60 mGy.cm HISTORY: Nausea. Vomiting. Diarrhea. TECHNIQUE: Multiaxial CT images of the abdomen and pelvis were performed following the use of intravenous contrast. A dose lowering technique was utilized adhering to the principles of ALARA. COMPARISON STUDY: Abdomen and pelvis CT 08/22/2021. FINDINGS: Mild dependent changes seen within the lung bases. There is mild motion artifact. No pneumoperitoneum. No pneumatosis. No acute fractures identified. The heart is mildly enlarged. The unenhanced liver, gallbladder, and spleen are suboptimally assessed due to the motion artifact but appear unremarkable. Mild bilateral adrenal gland thickening with a 9 mm left adrenal gland nodule, unchanged. The pancreas enhances normally. There is a mildly atrophic right kidney, unchanged. This is likely due to the proximal right renal artery stenosis from the calcified plaque. The left kidney is unremarkable. No hydronephrosis. No retroperitoneal lymphadenopathy. Calcified plaque within the normal caliber abdominal aorta. The main portal vein is patent. No pelvic free fluid. The prostate gland is mildly enlarged. Bladder wall thickening most pronounced anteriorly which has progressed. Fluid-filled large and small bowel. Normal appendix. No evidence for a bowel obstruction. Thickened loops of jejunum within the left side the abdomen likely due to underdistention. No adjacent inflammatory change. Focal narrowing within the mid sigmoid colon best seen on image 317. This measures approximately 1.9 cm in length. This could represent focal stricture. However, colonoscopy recommended to exclude the possibility of an underlying colonic mass. Heavily calcified right common femoral artery, unchanged. This may be severely stenosed or occluded. IMPRESSION: 1. Fluid-filled large and small bowel likely representing a gastroenteritis/diarrheal illness. 2. No evidence for a bowel obstruction. 3. Focal narrowing within the mid sigmoid colon which measures 1.9 cm in length. This could represent a focal stricture. However, colonoscopy recommended to exclude the possibility of an underlying colonic mass. 4. Bladder wall thickening most pronounced anteriorly. This could be due to chronic outlet obstruction or cystitis. Recommend correlation with urinalysis. 5. There is a mildly atrophic right kidney, unchanged. This is likely due to the proximal right renal artery stenosis from the calcified plaque. 6. Heavily calcified right common femoral artery, unchanged. This may be s everely stenosed or occluded. 7. Additional findings as described above. ACT 112: Negative or not required by law. Electronically signed by: Duc Reich M.D. 08/02/2022 8:[address] 08/02/22 05:22 CT SCAN OF THE BRAIN WITHOUT IV CONTRAST CLINICAL HISTORY: Trauma. Fall. COMPARISON STUDY: CT of the brain dated 10/06/2021. TECHNIQUE: Unenhanced axial CT scan of the brain is performed from the vertex to the skull base. A dose lowering technique was utilized adhering to the principles of ALARA. FINDINGS: Brain parenchyma: There is age-related involutional change noting mild subcortical and periventricular microangiopathic disease. There is no hemorrhage, mass effect, or evidence of acute territorial ischemia by CT criteria. A small chronic lacunar infarct is noted in the left basal ganglia. Hicks-white matter differentiation is preserved. No extra-axial fluid collection is seen. Ventricles, sulci, cisterns: Prominent secondary to involutional change. Intracranial vasculature: There is atherosclerotic calcification of the [place] carotid and vertebral arteries. Calvarium: The skeletal structures are osteopenic. No depressed calvarial fracture is identified. There is chronic deformity of the nasal bones. Sinuses and mastoids: There is evidence of previous paranasal sinus surgery. The visualized paranasal sinuses are clear. The mastoid air cells are well pneumatized. Orbits: The bony orbits are grossly intact. There are bilateral ocular lens i mplants. IMPRESSION: There is no hemorrhage, mass effect, or evidence of acute territorial ischemia by CT criteria. ACT 112: Negative or not required by law. Electronically signed by: Darren Delgadillo M.D. 08/02/2022 7:05 AM Discharge Plan Visit Data Chief Complaint: Alcohol Withdrawal Stated Complaint: Vomiting, Diarrhea, Alcohol Withdraw ED Provider: Jessica Abdalla Discharge Problem: Nausea & vomiting, Alcohol abuse, Alcohol withdrawal, Diarrhea, Acute dehydration Patient Disposition: Admitted As Inpatient Discharge Instructions Interventions: ED Discharge Assessment Last Done: 08/02/22 09:56
[2022-08-02 06:17] LABS: Basophils # (auto) 0.06 K/uL (0-0.2); Basophils % (auto) 0.9 %; Eosinophils # (auto) 0.07 K/uL (0-0.50); Eosinophils % (auto) 1.1 %; Hematocrit (blood only) 43.3 % (42.0-52.0); Hemoglobin 15.6 g/dl (14.0-18.0); Immature Granulocytes # (auto) 0.03 K/uL (0.01-0.20); Immature Granulocytes % (auto) 0.5 %; Mean Corpuscular Hemoglobin 31.1 pg (25.0-34.0); Mean Corpuscular Volume 86.4 fL (80.0-100.0); Mean Platelet Volume 10.6 fL (9.4-12.4); Neutrophils # (auto) 4.12 K/uL (1.40-6.50); Neutrophils % (auto) 63.5 %; Platelet Count 190 K/uL (130-400); RDW Coefficient of Variation 12.2 % (11.5-14.5); RDW Standard Deviation 38.5 fL (36.4-46.3); Red Blood Count 5.01 M/uL (4.70-6.10); White Blood Count 6.48 K/ul (4.8-10.8)
[2022-08-02 06:22] LABS: Albumin Globulin Ratio 1.1 (0.9-2); Albumin Level 3.9 gm/dl (3.4-5.0); BUN Creatinine Ratio 11.3 (10-20); Bilirubin,Total 1.4 mg/dl (0.2-1.0); Calcium 9.5 mg/dl (8.5-10.1); Creatinine Clr Calc Pharmacy 43.4 ml/min; Est GFR (African American) 53.1 ml/min; Est GFR (Non-African American) 45.8 ml/min; Globulin 3.7 gm/dl (2.5-4.0); Magnesium 2.2 mg/dl (1.7-2.4); Potassium 4.2 mmol/L (3.5-5.1); Total Protein 7.6 gm/dl (6.0-8.3)
[2022-08-02 06:28] LABS: Troponin I High Sensitivity 29.8 pg/ml (0-20)
[2022-08-02 06:34] LABS: INR 1.1 (0.9-1.1); Prothrombin Time 11.9 Seconds (9.0-12.0)
[2022-08-02 06:38] LABS: Thyroid Stimulating Hormone 7.869 uIu/ml (0.300-4.500)
[2022-08-02] MEDS ORDERED: OPTIRAY 350 100ml IV ONE (06:43)
--- NOTE | 2022-08-02 07:07 | CT Scan Report ---
CT SCAN OF THE BRAIN WITHOUT IV CONTRAST CLINICAL HISTORY: Trauma. Fall. COMPARISON STUDY: CT of the brain dated 10/06/2021. TECHNIQUE: Unenhanced axial CT scan of the brain is performed from the vertex to the skull base. A do se lowering technique was utilized adhering to the principles of ALARA. FINDINGS: Brain parenchyma: There is age-related involutional change noting mild subcortical and periventricula r microangiopathic disease. There is no hemorrhage, mass effect, or evidence of acute territorial isc hemia by CT criteria. A small chronic lacunar infarct is noted in the left basal ganglia. Hicks-white matter differentiation is preserved. No extra-axial fluid collection is seen. Ventricles, sulci, cisterns: Prominent secondary to involutional change. Intracranial vasculature: There is atherosclerotic calcification of the cavernous carotid and vertebr al arteries. Calvarium: The skeletal structures are osteopenic. No depressed calvarial fracture is identified. The re is chronic deformity of the nasal bones. Sinuses and mastoids: There is evidence of previous paranasal sinus surgery. The visualized paranasal sinuses are clear. The mastoid air cells are well pneumatized. Orbits: The bony orbits are grossly intact. There are bilateral ocular lens implants. IMPRESSION: There is no hemorrhage, mass effect, or evidence of acute territorial ischemia by CT chana wong. ACT 112: Negative or not required by law. Electronically signed by: Darren Delgadillo M.D. 08/02/2022 7:05 AM
[2022-08-02 07:14] LABS: T4 Free Thyroxine 0.88 ng/dl (0.61-1.60)
[2022-08-02 07:17] LABS: Adenovirus PCR Not Detected (NotDetected); Bordetella parapertussis PCR Not Detected (NotDetected); Bordetella pertussis PCR Not Detected (NotDetected); Chlamydia pneumoniae PCR Not Detected (NotDetected); Coronavirus 229E PCR Not Detected (NotDetected); Coronavirus CoV-2 (COVID19)PCR Not Detected (NotDetected); Coronavirus HKU1 PCR Not Detected (NotDetected); Coronavirus NL63 PCR Not Detected (NotDetected); Coronavirus OC43PCR Not Detected (NotDetected); Human Metapneumovirus PCR Not Detected (NotDetected); Influenza A PCR Not Detected (NotDetected); Influenza B PCR Not Detected (NotDetected); Mycoplasma pneumoniae PCR Not Detected (NotDetected); Parainfluenza Virus 1 PCR Not Detected (NotDetected); Parainfluenza Virus 2 PCR Not Detected (NotDetected); Parainfluenza Virus 3 PCR Not Detected (NotDetected); Parainfluenza Virus 4 PCR Not Detected (NotDetected); Respiratory Syncytial VirusPCR Not Detected (NotDetected); Rhinovirus/Enterovirus PCR Not Detected (NotDetected)
--- NOTE | 2022-08-02 08:04 | CT Scan Report ---
ABDOMEN AND PELVIS CT WITH IV CONTRAST CT DOSE: 1261.60 mGy.cm HISTORY: Nausea. Vomiting. Diarrhea. TECHNIQUE: Multiaxial CT images of the abdomen and pelvis were performed following the use of intrave nous contrast. A dose lowering technique was utilized adhering to the principles of ALARA. COMPARISON STUDY: Abdomen and pelvis CT 08/22/2021. FINDINGS: Mild dependent changes seen within the lung bases. There is mild motion artifact. No pneumo peritoneum. No pneumatosis. No acute fractures identified. The heart is mildly enlarged. The unenhanc ed liver, gallbladder, and spleen are suboptimally assessed due to the motion artifact but appear unr emarkable. Mild bilateral adrenal gland thickening with a 9 mm left adrenal gland nodule, unchanged. The pancreas enhances normally. There is a mildly atrophic right kidney, unchanged. This is likely du e to the proximal right renal artery stenosis from the calcified plaque. The left kidney is unremarka ble. No hydronephrosis. No retroperitoneal lymphadenopathy. Calcified plaque within the normal calibe r abdominal aorta. The main portal vein is patent. No pelvic free fluid. The prostate gland is mildly enlarged. Bladder wall thickening most pronounced anteriorly which has progressed. Fluid-filled larg e and small bowel. Normal appendix. No evidence for a bowel obstruction. Thickened loops of jejunum w ithin the left side the abdomen likely due to underdistention. No adjacent inflammatory change. Focal narrowing within the mid sigmoid colon best seen on image 317. This measures approximately 1.9 cm in length. This could represent focal stricture. However, colonoscopy recommended to exclude the possib ility of an underlying colonic mass. Heavily calcified right common femoral artery, unchanged. This m ay be severely stenosed or occluded. IMPRESSION: 1. Fluid-filled large and small bowel likely representing a gastroenteritis/diarrheal illness. 2. No evidence for a bowel obstruction. 3. Focal narrowing within the mid sigmoid colon which measures 1.9 cm in length. This could represent a focal stricture. However, colonoscopy recommended to exclude the possibility of an underlying colo dottie mass. 4. Bladder wall thickening most pronounced anteriorly. This could be due to chronic outlet obstructio n or cystitis. Recommend correlation with urinalysis. 5. There is a mildly atrophic right kidney, unchanged. This is likely due to the proximal right renal artery stenosis from the calcified plaque. 6. Heavily calcified right common femoral artery, unchanged. This may be severely stenosed or occlude d. 7. Additional findings as described above. ACT 112: Negative or not required by law. Electronically signed by: Duc Reich M.D. 08/02/2022 8:02 AM
--- NOTE | 2022-08-02 08:28 | Electrocardiogram Report ---
Test Reason : Blood Pressure : / mmHG Vent. Rate : 084 BPM Atrial Rate : 075 BPM P-R Int : 000 ms QRS Dur : 104 ms QT Int : 400 ms P-R-T Axes : 000 -67 156 degrees QTc Int : 472 ms Poor data quality, interpretation may be adversely affected Atrial fibrillation Left anterior fascicular block T-wave inversion in Anterolateral leads Abnormal ECG When compared with ECG of 11-OCT-2021 10:51, T-wave inversion in Lateral leads more pronounced Confirmed by Khoi Ribera ([id number]) on 08/02/2022 8:28:34 AM Referred By: REFERRED SELF Confirmed By:Khoi Ribera
--- NOTE | 2022-08-02 08:48 | History & Physical Report ---
Date of Service August 02, 2022 Assessment & Plan (1) Nausea & vomiting: Plan: pt here with acute gastroenteritis, will support with ivf and antiemetics possible alcoholic gastritis, add h2 and ppi, follow hgb CT abd pelvis has sigmoid stricture, 1.9 cm , R EDUARD with renal atrophy, R Comon Femoral artery with severe occlusion will need colonoscopy follow up and prevously has seen Yong Moreno for endovascular evaluation (2) Alcohol withdrawal: Plan: Acute with serious risk Pt will be on AWSS and Gabapentin with short transition to librium if able Patient given a banana bag will be continued on thiamine and folate, first dose thiamine will be given parenterally (3) PAF (paroxysmal atrial fibrillation): Plan: Patient is rate controlled atrial fibrillation has lateral t wave investions these are similar to old. hold apixiban, continue metoprolol if patient is stable after 24 hours resume apixaban (4) T2DM (type 2 diabetes mellitus): Plan: chronic not clear if stable, will check Aic Typically is on insulin and dapagliflozin, will hold this and be on basal bolus insulin (5) CKD (chronic kidney disease), stage III: Plan: acute kidney injury with CKD3 hold phillip inhibitor, lasix and spironolactone (6) Chronic systolic congestive heart failure, NYHA class 2: Plan: Pt has significant CAD with PCI LAD 10/15 last echo with EF 20-25, remains on DAPT B tosha but holding diuretic and phillip on admission Patient has mild troponin elevation on presentation first was 29-second 36.1. He does denies chest pain of any kind and EKG although having changes are similar to old we will continue to try and augment oxygen (7) COPD (chronic obstructive pulmonary disease): History of Present Illness Primary Care Provider: Janell Aldana DO 72-year-old male brought in by EMS due to concern for nausea, vomiting, diarr hea, dehydration. Patient states he has been having diarrhea for 3 weeks with intermittent abdominal pain. Patient states today he had accompanying nausea and vomiting. Patient states he has noticed blood intermittently with the diarrhea but feels that it is secondary to his hemorrhoids. He states blood was bright red, no black stools or passage of clots. He denies any blood in the emesis earlier today Patient admits to daily alcohol use, primarily beer. He states his last drink was 8 hours prior to arrival. On arrival his alcohol level is 0. Patient relates no medication indiscretion and seems fairly up-to-date on his medications. Patient is anticoagulated due to history of atrial fibrillation and also has a history of heart failure. Patient can recall having endovascular evaluation of his lower extremities and feels that these have improved since starting dual antiplatelet therapy. Patient states he continues to smoke and has COPD.. Patient states he did fall yesterday at home and landed on his side. He denies any head injury or loss of consciousness during this event. Allergies Allergy/AdvReac Type Severity Reaction Status Date / Time No Known Allergies Allergy Verified 12/10/21 13:32 Home Medications Medication Instructions Recorded Confirmed Type acetaminophen 500 mg tablet 1,000 mg PO Q6H PRN Pain 08/22/21 12/10/21 History (Tylenol Extra Strength) aluminum-mag hydroxide-simethicone 15 ml PO Q6H PRN Upset Stomach 08/22/21 12/10/21 History 200 mg-200 mg-20 mg/5 mL oral susp bismuth subsalicylate 525 mg/15 mL 525 mg PO QID PRN upset stomach 08/22/21 12/10/21 History oral suspension fluticasone 250 mcg-salmeterol 50 1 inh inhalation BID 08/22/21 12/10/21 History mcg/dose blistr powdr for inhalation (Advair Diskus) nitroglycerin 0.4 mg sublingual 0.4 mg sublingual UD PRN chest 10/12/21 12/10/21 Rx tablet (Nitrostat) pain #10 tabs apixaban 5 mg tablet (Eliquis) 5 mg PO BID 30 days #60 tabs 11/01/21 12/10/21 Rx atorvastatin 40 mg tablet 40 mg PO DAILY #30 tabs 11/01/21 12/10/21 Rx clopidogrel 75 mg tablet 75 mg PO QAM 30 days #30 tabs 11/01/21 12/10/21 Rx enalapril maleate 10 mg tablet 10 mg PO DAILY 30 days #30 tabs 11/01/21 12/10/21 Rx furosemide 20 mg tablet 40 mg PO DAILY #60 tabs 11/01/21 12/10/21 Rx metoprolol succinate 100 mg 100 mg PO DAILY #30 tabs 11/01/21 12/10/21 Rx tablet,extended release 24 hr albuterol sulfate 90 mcg/actuation 2 puff inhalation Q4H PRN 11/10/21 12/10/21 Rx aerosol inhaler Wheezing/Dyspnea #8.5 grams spironolactone 25 mg tablet 25 mg PO DAILY #30 tabs 11/29/21 12/10/21 Rx insulin aspart U-100 100 unit/mL 1 unit (0.01 mL) SC ACHS #500 mL 12/10/21 12/10/21 Rx subcutaneous solution (Novolog U-100 Insulin aspart) insulin glargine 100 unit/mL (3 5 unit (0.05 mL) SC BID #300 mL 12/10/21 12/10/21 Rx mL) subcutaneous pen (Lantus Solostar U-100 Insulin) dapagliflozin 5 mg tablet (Farxiga) 5 mg PO DAILY #90 tabs 02/07/22 Rx peg 3350-electrolytes 236 240 ml PO Q10M #4,000 mL 06/17/22 Rx gram-22.74 gram-6.74 gram-5.86 gram solution (GaviLyte-G) Past Med/Surg History Medical History Acute hyponatremia Alcohol abuse Alcohol abuse Anxiety Atrial fibrillation CHF (congestive heart failure) COPD (chronic obstructive pulmonary disease) COPD (chronic obstructive pulmonary disease) DM2 (diabetes mellitus, type 2) Elevated troponin Fall Fracture dislocation of right ankle GERD (gastroesophageal reflux disease) History of anesthesia reaction History of left heart catheterization (LHC) History of myocardial infarction History of stroke HLD (hyperlipidemia) SLEETMUTE (hard of hearing) HTN (hypertension) Hypervolemia Left ventricular dysfunction Osteoarthritis PAD (peripheral artery disease) Poor historian Syndesmotic disruption of right ankle Surgical History History of ankle surgery History of cardiac cath History of cervical spinal surgery History of colonoscopy History of esophagogastroduodenoscopy (EGD) History of non-cataract eye surgery History of vascular surgery Family History Brother Pancreatic cancer Cancer Mother Diabetes Myocardial infarction Sister Diabetes Father Heart disease Myocardial infarction Other No family history of adverse response to anesthesia Denies family history of Ovarian cancer Prostate cancer Breast cancer Colorectal cancer Social History Smoking Status: Never smoker Tobacco Type: Cigarettes Second Hand Exposure: No; Hx Alcohol Use: Yes Alcohol type: beer Alcohol Intake Frequency: 4 or More x per/Week Hx Substance Use: No Preferred Language: Bermudian Communication Ability: Effective Visual Impairment: No Limitations Hearing Ability: Hard of Hearing Safety Compliance Specialist Required: No Beliefs That Will Affect Care: None marital status: Single Current Living Situation: Alone current occupational status: retired How many Children do You have: 4 Other Information That Helps Us Care for You: No Feels Safe at Home: Yes Safety Concerns: Feels Safe At This Time Childhood Exposure to Second-Hand Smoke: Yes caffeine: Yes (coffee) during the past year weight has: remained stable Dental Care, Regularly: No Physical Activity Frequency: Daily Seatbelt Use: always Sunscreen Use: No Assistive Devices: Cane and Walker Results & Data Results & Data ([facility]) Vital Signs (Past 12 Hours) Vital Signs Temp Pulse Resp BP Pulse Ox O2 Del Method 08/02/22 07:30 74 18 145/92 H 97 08/02/22 06:00 82 15 108/72 94 Room Air 08/02/22 05:30 84 23 118/77 98 Room Air 08/02/22 05:17 97.2 F L 96 H 15 131/82 98 Room Air Laboratory Results Reviewed CBC Reviewed. Pain Reviewed results of imaging studies ECG Additional Comments: Atrial fibrillation controlled ventricular response with lateral T wave inversions are present on old EKGs PG Care Time/CCT Total # of Minutes Spent Total Time Spent with Patient: Total time spent is greater than 50% in coordination of care (as documented) at patient's floor/unit and/or counseling patient: Coding Level of Care Code 50772 INT INP/OBS CARE 3/75MIN Diagnoses Nausea & vomiting R11.2 Alcohol withdrawal F10.939 PAF (paroxysmal atrial fibrillation) I48.0 T2DM (type 2 diabetes mellitus) E11.9 CKD (chronic kidney disease), stage III N18.30 Chronic systolic congestive heart failure, NYHA class 2 I50.22 COPD (chronic obstructive pulmonary disease) J44.9
--- NOTE | 2022-08-02 09:30 | XRay Report ---
XR chest 1V portable HISTORY: trauma COMPARISON: Chest 08/22/2021. FINDINGS: No pneumothorax. No pleural effusions. The cardiac silhouette remains mildly enlarged. A fe w bibasilar linear densities consistent with subsegmental atelectasis. Otherwise, no focal lung conso lidations to suggest a pneumonia. No evidence for pulmonary edema. IMPRESSION: Stable mild cardiomegaly. ACT 112: Negative or not required by law. Electronically signed by: Duc Reich M.D. 08/02/2022 9:28 AM
[2022-08-02] MEDS ORDERED: LORazepam 1 MG TAB PO PRN (09:56)
[2022-08-02] MEDS ORDERED: GLUCOSE 40% GEL 15 GM TUBE PO PRN (09:56)
[2022-08-02] MEDS ORDERED: GLUCOSE 10 TAB/TUBE PO PRN (09:56)
[2022-08-02] MEDS ORDERED: ONDANSETRON INJ 2 MG/ML 2 ML VIAL IV PRN (09:56)
[2022-08-02] MEDS ORDERED: NITROGLYCERIN SL 0.4 MG/TAB TAB SL PRN (09:56)
[2022-08-02] MEDS ORDERED: LORazepam 2 MG/1 ML VIAL IV PRN (09:56)
[2022-08-02] MEDS ORDERED: CARBOHYDRATES FOR HYPOGLYCEMIA PO PRN (09:56)
[2022-08-02] MEDS ORDERED: GABAPENTIN 1200MG ALCOHOL WITHDRAWAL LOAD PO STA (09:56)
[2022-08-02] MEDS ORDERED: ALBUTEROL HFA 8 GM INHALER INH PRN (09:56)
[2022-08-02] MEDS ORDERED: ACETAMINOPHEN 500 MG TAB PO PRN (09:56)
[2022-08-02] MEDS ORDERED: GLUCAGON FOR INJ 1 MG VIAL SQ PRN (09:56)
[2022-08-02] MEDS ORDERED: DEXTROSE 50% 50 ML SYRINGE IV PRN (09:56)
[2022-08-02] MEDS ORDERED: ALUMINUM/MAGNESIUM SUSP 30 ML UDC PO PRN (10:28)
[2022-08-02] MEDS ORDERED: MULTI-VITAMIN INFUSION 10 ML, THIAMINE HCL 100 MG, FOLIC ACID 1 MG in SODIUM CHLORIDE 0... IV ONE (10:45)
[2022-08-02] MEDS ORDERED: GABAPENTIN 600 MG TAB PO ONE (10:45)
[2022-08-02] MEDS: PANTOprazole 40 MG in SYRINGE 0 ML IV SCH ×2 (12:48→21:24)
[2022-08-02] MEDS: SUCRALFATE 1 GM/10 ML UDC PO SCH ×4 (12:49→21:24)
[2022-08-02] MEDS: FOLIC ACID 1 MG TAB PO SCH (12:51)
[2022-08-02] MEDS: THIAMINE HCL 100 MG TAB PO SCH (12:51)
[2022-08-02] MEDS: CLOPIDOGREL BISULFATE 75 MG TAB PO SCH (12:51)
[2022-08-02] MEDS: ATORVASTATIN 40 MG TAB PO SCH (12:51)
[2022-08-02] MEDS: METOPROLOL SUCC 50MG EXT REL TAB PO SCH (12:51)
[2022-08-02] MEDS: FLUTICASONE/VILANTEROL 200/25MCG 14 PUFFS/INHALER INH SCH (12:52)
[2022-08-02] MEDS: LANTUS PER UNIT CHARGE SQ SCH ×2 (13:08→21:23)
[2022-08-02] MEDS: INSULIN ASPART PER UNIT SC SCH ×3 (13:09→21:23)
[2022-08-02] MEDS ORDERED: GABAPENTIN 600 MG TAB PO SCH (16:00)
[2022-08-02 17:02] LABS: Appearance Urine Clear (Clear); Bacteria Urine Automated Negative (Negative); Bilirubin Urine Negative (Negative); Blood Urine Negative (Negative); Color Urine Yellow; Epithelial Cell Urine Auto 0-5 /lpf (0-5); Glucose Urine UA 3+ (Negative); Ketones Urine Negative (Negative); Leukocyte Esterase Urine Negative (Negative); Nitrite Urine Negative (Negative); Protein Urine 2+ (Negative); RBC Urine Automated 0-4 /hpf (0-4); Specific Gravity Urine 1.023 (1.000-1.030); Urobilinogen Urine Negative (Negative); pH Urine 5.5 (4.5-7.5)
[2022-08-02 17:42] LABS: Amphetamines+Metham, Urine Neg (Neg); Barbiturates, Urine Neg (Neg); Benzodiazepine, Urine Neg (Neg); Cocaine, Urine Neg (Neg); MDMA (Ecstacy), Urine Neg (Neg); Methadone, Urine Neg (Neg); Opiate, Urine Neg (Neg); Phencyclidine, Urine Neg (Neg)
[2022-08-02] MEDS: GABAPENTIN 600 MG TAB PO SCH (21:24)
[2022-08-03 02:48] LABS: Hematocrit (blood only) 37.3 % (42.0-52.0); Hemoglobin 13.1 g/dl (14.0-18.0); Mean Corpuscular Hemoglobin 31.5 pg (25.0-34.0); Mean Corpuscular Hgb Conc 35.1 g/dL (32.0-36.0); Mean Corpuscular Volume 89.7 fL (80.0-100.0); Mean Platelet Volume 10.4 fL (9.4-12.4); Platelet Count 147 K/uL (130-400); RDW Coefficient of Variation 12.4 % (11.5-14.5); RDW Standard Deviation 40.2 fL (36.4-46.3); Red Blood Count 4.16 M/uL (4.70-6.10); White Blood Count 5.16 K/ul (4.8-10.8)
[2022-08-03 03:08] LABS: BUN Creatinine Ratio 10.2 (10-20); Calcium 8.5 mg/dl (8.5-10.1); Creatinine Clr Calc Pharmacy 44.6 ml/min; Est GFR (African American) 54.8 ml/min; Est GFR (Non-African American) 47.3 ml/min; Magnesium 2.2 mg/dl (1.7-2.4); Potassium 3.9 mmol/L (3.5-5.1)
[2022-08-03] MEDS: GABAPENTIN 600 MG TAB PO SCH ×3 (03:43→21:35)
[2022-08-03 03:45] LABS: Troponin I High Sensitivity 173.3 pg/ml (0-20)
[2022-08-03 05:35] LABS: Adenovirus F 40/41 PCR Not Detected (NotDetected); Astrovirus PCR Not Detected (NotDetected); Campylobacter PCR Not Detected (NotDetected); Cryptosporidium PCR Not Detected (NotDetected); Cyclospora cayetanensis PCR Not Detected (NotDetected); Entamoeba histolytica PCR Not Detected (NotDetected); Enteroaggregative E.coli(EAEC) Not Detected (NotDetected); Enteropathogenic E.coli (EPEC) Not Detected (NotDetected); Enterotoxigenic E.coli (ETEC) Not Detected (NotDetected); Giardia lamblia PCR Not Detected (NotDetected); Norovirus GI/GII PCR Not Detected (NotDetected); Plesiomonas shigelloides PCR Not Detected (NotDetected); Rotavirus A PCR Not Detected (NotDetected); Salmonella PCR Not Detected (NotDetected); Sapovirus PCR Not Detected (NotDetected); Shiga-like Toxin E.coli (STEC) Not Detected (NotDetected); Shigella/Enteroinvasive E.coli Not Detected (NotDetected); Vibrio cholerae PCR Not Detected (NotDetected); Vibrio species PCR Not Detected (NotDetected); Yersinia enterocolitica PCR Not Detected (NotDetected)
[2022-08-03] MEDS ORDERED: GABAPENTIN 600 MG TAB PO SCH (06:00)
[2022-08-03 06:51] LABS: Estimated Average Glucose 186 mg/dl; Hemoglobin A1C 8.1 % (4.5-5.6)
[2022-08-03] MEDS: FLUTICASONE/VILANTEROL 200/25MCG 14 PUFFS/INHALER INH SCH (08:05)
[2022-08-03] MEDS: SUCRALFATE 1 GM/10 ML UDC PO SCH ×4 (08:06→20:46)
[2022-08-03] MEDS: ATORVASTATIN 40 MG TAB PO SCH (08:07)
[2022-08-03] MEDS: METOPROLOL SUCC 50MG EXT REL TAB PO SCH (08:07)
[2022-08-03] MEDS: CLOPIDOGREL BISULFATE 75 MG TAB PO SCH (08:07)
[2022-08-03] MEDS: THIAMINE HCL 100 MG TAB PO SCH (08:07)
[2022-08-03] MEDS: FOLIC ACID 1 MG TAB PO SCH (08:07)
[2022-08-03] MEDS: PANTOprazole 40 MG in SYRINGE 0 ML IV SCH ×2 (08:14→20:47)
--- NOTE | 2022-08-03 08:35 | Electrocardiogram Report ---
Test Reason : Blood Pressure : / mmHG Vent. Rate : 078 BPM Atrial Rate : 081 BPM P-R Int : 000 ms QRS Dur : 106 ms QT Int : 416 ms P-R-T Axes : 000 -61 151 degrees QTc Int : 474 ms Poor data quality, interpretation may be adversely affected Atrial fibrillation with a competing junctional pacemaker Left anterior fascicular block Anterior infarct , age undetermined T-wave inversion in Lateral leads Abnormal ECG When compared with ECG of 02-AUG-2022 05:31, T wave inversion no longer evident in Anterior leads Confirmed by Khoi Ribera ([id number]) on 08/03/2022 8:35:22 AM Referred By: REFERRED SELF Confirmed By:Khoi Ribera
[2022-08-03] MEDS: INSULIN ASPART PER UNIT SC SCH ×4 (09:06→20:37)
[2022-08-03] MEDS: LANTUS PER UNIT CHARGE SQ SCH ×2 (09:06→20:38)
--- NOTE | 2022-08-03 10:52 | XCELERA ---
[id number]
[2022-08-03] MEDS ORDERED: lisinopril 5 MG TAB PO ONE (11:50)
--- NOTE | 2022-08-03 12:01 | Hospitalist Progress Note ---
Date of Service August 03, 2022 Assessment & Plan (1) Nausea & vomiting: Plan: pt here with acute gastroenteritis, improved dramatically with hydration antiemetics no longer having any symptoms able to tolerate oral intake possible alcoholic gastritis, continue ppi, Recheck hemoglobin has been stable CT abd pelvis has sigmoid stricture, 1.9 cm , R EDUARD with renal atrophy, R Common Femoral artery with severe occlusion will need colonoscopy follow up and prevously has seen Yong Josh for endovascular evaluation (2) Alcohol withdrawal: Plan: Acute with serious risk Pt has done well on AWSS and Gabapentin does not appear to need any Librium at this time Status post banana bag will be continued on thiamine and folate, first dose thiamine will be given parenterally (3) PAF (paroxysmal atrial fibrillation): Plan: Patient is rate controlled atrial fibrillation has lateral t wave investions these are similar to old. hold apixiban, continue metoprolol if patient is stable after 24 hours resume apixaban Acute elevation of troponin moderate risk patient had an isolated elevated troponin of 173. This was without chest pain or EKG changes. Pending echocardiogram (4) T2DM (type 2 diabetes mellitus): Plan: chronic stable, hemoglobin A1c is 8.1 Typically is on insulin and dapagliflozin, will resume (5) CKD (chronic kidney disease), stage III: Plan: acute kidney injury with CKD3 CKD is stable at this time will resume ISAIAS inhibitor if potassium and creatinine remain stable consider resuming diuretics on 08/04/2022 (6) Chronic systolic congestive heart failure, NYHA class 2: Plan: Pt has significant CAD with PCI LAD 10/15 last echo with EF 20-25, remains on DAPT B tosha but holding diuretic and isaias on admission Patient has troponin elevation with repeat echocardiogram evaluating for regional wall motion abnormalities (7) COPD (chronic obstructive pulmonary disease): Plan: Chronic and stable Admission and Anticipated Discharge Date Admission Date: August 02, 2022 Subjective Patient feels improved although still wobbly on his feet feels he cannot go home today. Physical Exam Physical Exam: The patient appeared stable Vital signs as documented. Lungs are clear to auscultation and appear unlabored Cardiac exam, Rhythm is regular.. No murmurs, rubs or gallops. Abdominal exam reveals normal bowel sounds, soft non tender, no masses Extremities are nonedematous and both pedal pulses are normal. Neurologic exam is alert and oriented, no focal loss of strength or sensation Skin is without bruises or rashes Psychologically is without concerns for anxiety or depression. Results & Data Results & Data ([facility]) Vital Signs (Past 12 Hours) Vital Signs Temp Pulse Pulse Resp BP Pulse Ox O2 Del Method 08/03/22 11:35 97.5 F L 78 18 166/90 H 98 Room Air 08/03/22 10:00 73 08/03/22 07:28 98.1 F 75 18 150/90 H 96 Room Air 08/03/22 04:11 73 08/03/22 03:46 97.7 F 71 16 146/83 H 98 Room Air Laboratory Results Reviewed CBC Reviewed PRP Reviewed troponin PG Care Time/CCT Total # of Minutes Spent Total Time Spent with Patient: Total time spent is greater than 50% in coordination of care (as documented) at patient's floor/unit and/or counseling patient: Coding Level of Care Code 52059 SUB INP/OBS CARE 3/50MIN Diagnoses Nausea & vomiting R11.2 Alcohol withdrawal F10.939 PAF (paroxysmal atrial fibrillation) I48.0 T2DM (type 2 diabetes mellitus) E11.9 CKD (chronic kidney disease), stage III N18.30 Chronic systolic congestive heart failure, NYHA class 2 I50.22 COPD (chronic obstructive pulmonary disease) J44.9
[2022-08-04] MEDS: GABAPENTIN 600 MG TAB PO SCH (06:10)
[2022-08-04] MEDS: METOPROLOL SUCC 50MG EXT REL TAB PO SCH (08:16)
[2022-08-04] MEDS: ATORVASTATIN 40 MG TAB PO SCH (08:16)
[2022-08-04] MEDS: CLOPIDOGREL BISULFATE 75 MG TAB PO SCH (08:16)
[2022-08-04] MEDS: THIAMINE HCL 100 MG TAB PO SCH (08:16)
[2022-08-04] MEDS: FLUTICASONE/VILANTEROL 200/25MCG 14 PUFFS/INHALER INH SCH (08:17)
[2022-08-04] MEDS: SUCRALFATE 1 GM/10 ML UDC PO SCH ×2 (08:17→13:35)
[2022-08-04] MEDS: INSULIN ASPART PER UNIT SC SCH ×3 (08:17→17:40)
[2022-08-04] MEDS: LANTUS PER UNIT CHARGE SQ SCH (08:17)
[2022-08-04] MEDS: FOLIC ACID 1 MG TAB PO SCH (08:17)
[2022-08-04 08:20] LABS: Hemoglobin 13.9 g/dl (14.0-18.0); Mean Corpuscular Hemoglobin 31.2 pg (25.0-34.0); Mean Corpuscular Hgb Conc 34.8 g/dL (32.0-36.0); Mean Corpuscular Volume 89.7 fL (80.0-100.0); Mean Platelet Volume 10.7 fL (9.4-12.4); Platelet Count 148 K/uL (130-400); RDW Coefficient of Variation 12.4 % (11.5-14.5); RDW Standard Deviation 40.7 fL (36.4-46.3); Red Blood Count 4.46 M/uL (4.70-6.10); White Blood Count 5.94 K/ul (4.8-10.8)
[2022-08-04 08:27] LABS: BUN Creatinine Ratio 13.9 (10-20); Calcium 8.9 mg/dl (8.5-10.1); Creatinine Clr Calc Pharmacy 46.9 ml/min; Est GFR (African American) 53.1 ml/min; Est GFR (Non-African American) 45.8 ml/min; Magnesium 2.1 mg/dl (1.7-2.4); Potassium 4.2 mmol/L (3.5-5.1)
[2022-08-04] MEDS ORDERED: lisinopril 5 MG TAB PO SCH (09:00)
[2022-08-04] MEDS ORDERED: GABAPENTIN 600 MG TAB PO SCH ×2 (10:00→18:00)
[2022-08-04] MEDS: PANTOprazole 40 MG in SYRINGE 0 ML IV SCH (10:20)
--- NOTE | 2022-08-04 15:05 | Discharge Summary ---
Date of Service August 04, 2022 Admission HPI Per Admitting Provider 72-year-old male brought in by EMS due to concern for nausea, vomiting, diarrhea, dehydration. Patient states he has been having diarrhea for 3 weeks with intermittent abdominal pain. Patient states today he had accompanying nausea and vomiting. Patient states he has noticed blood intermittently with the diarrhea but feels that it is secondary to his hemorrhoids. He states blood was bright red, no black stools or passage of clots. He denies any blood in the emesis earlier today Patient admits to daily alcohol use, primarily beer. He states his last drink was 8 hours prior to arrival. On arrival his alcohol level is 0. Patient relates no medication indiscretion and seems fairly up-to-date on his medications. Patient is anticoagulated due to history of atrial fibrillation and also has a history of heart failure. Patient can recall having endovascular evaluation of his lower extremities and feels that these have improved since starting dual antiplatelet therapy. Patient states he continues to smoke and has COPD.. Patient states he did fall yesterday at home and landed on his side. He denies any head injury or loss of consciousness during this event. Principal Diagnosis acute gastroenteritis Discharge Exam The patient appeared stable Vital signs as documented. Lungs are clear to auscultation and appear unlabored Cardiac exam, Rhythm is regular.. No murmurs, rubs or gallops. Abdominal exam reveals normal bowel sounds, soft non tender, no masses Extremities are nonedematous and both pedal pulses are normal. Neurologic exam is alert and oriented, no focal loss of strength or sensation Skin is without bruises or rashes Psychologically is without concerns for anxiety or depression. Discharge Data Allergies Allergy/AdvReac Type Severity Reaction Status Date / Time No Known Allergies Allergy Verified 08/10/22 07:41 Consultations 08/02/22 08:45 ED Decision to Admit Stat Ordered Studies 08/02/22 05:22 CT abd pelvis IV con only Stat CT head/brain wo con Stat Hospital Course (1) Nausea & vomiting: pt here with acute gastroenteritis, improved dramatically with hydration antiemetics no longer having any symptoms able to tolerate oral intake possible alcoholic gastritis, continue ppi, Recheck hemoglobin has been stable CT abd pelvis has sigmoid stricture, 1.9 cm , R EDUARD with renal atrophy, 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 Education provided. (3) PAF (paroxysmal atrial fibrillation): Patient is rate controlled atrial fibrillation has lateral t wave investions these are similar to old. hold apixiban, continue metoprolol if patient is stable after 24 hours resume apixaban Acute elevation of troponin moderate risk patient had an isolated elevated troponin of 173. This was without chest pain or EKG changes. Pending echocardiogram (4) T2DM (type 2 diabetes mellitus): chronic stable, hemoglobin A1c is 8.1 Typically is on insulin and dapagliflozin, will resume (5) CKD (chronic kidney disease), stage III: acute kidney injury with CKD3 CKD is stable at this time will resume ISAIAS inhibitor if potassium and creatinine remain stable consider resuming diuretics on 08/04/2022 (6) Chronic systolic congestive heart failure, NYHA class 2: Pt has significant CAD with PCI LAD 10/15 last echo with EF 20-25, remains on DAPT B tosha but holding diuretic and isaias on admission Patient has troponin elevation with repeat echocardiogram evaluating for regional wall motion abnormalities (7) COPD (chronic obstructive pulmonary disease): Chronic and stable Total Time Total Time Spent Total Time Spent (In Minutes): 32 Discharge Plan Discharge Items Patient Disposition: Home - Self-Care Reason For Visit: ALCOHOLIC GASTRITIS, AZRA Discharge Diagnosis: alcoholic gastritis Activity: Resume your previous activity Non-emergency contact: Primary Care Provider Call non-emergency contact if: you have any medication questions Follow-up/Referrals: Janell Aldana DO [Primary Care Provider] - 08/09/22 10:00 am (Your appointment is with Evelia VASQUEZ) Diet: Carb Consistent or DM2 and Low Sodium (2gm) Addtl Attending Provider Instructions: Please abstain from drinking alcohol. Please followup with PCP in 1-2 weeks. Call your Primary Care doctor if any of the following symptoms or problems start or get worse: * Shortness of breath or difficulty breathing * Wake up at night short of breath * Chest pain * Cough * Swelling of your hands, feet, or legs * More fatigued or tired with your normal activity * Palpitations - sudden fast heart beats WEIGHT * Weigh yourself every morning after using the bathroom. * Use the same scale. * Wear the same amount of clothing. * Write your weight down on a chart. * Call your Primary Care doctor if you gain more than 2-3 pounds in 1-2 days. MEDICATIONS * Use this discharge instruction sheet for medication instructions. * Take your medications at the time your doctor ordered. * Do not skip a dose of your medicines. * If you miss a dose of medicine, take it as soon as possible, but DO NOT DOUBLE A DOSE. * Read your medicine information when you get home. * Know all of the side effects of your medicine. If in doubt, ask your pharmacist * Call your Primary Care doctor's office if you have any side effects. * Be sure all of your doctors know what medicine and herbs you take (including cold, flu, and herbal medicine). Take the following with you to your follow-up doctor appointments: * Weight Chart * Medication List * List of questions Do not drink excessive alcohol, beer or wine. Pending Studies at Discharge: No Stand-Alone Forms: My [facility], Smoking Cessation Medications and DC Order Prescriptions: New folic acid 1 mg Tablet 1 mg PO QAM Qty: 30 0RF thiamine HCl (vitamin B1) 100 mg Tablet 100 mg PO QAM Qty: 30 0RF sucralfate [Carafate] 1 gram tablet 1 g PO Q6H 28 Days Qty: 112 0RF pantoprazole 40 mg tablet,delayed release (DR/EC) 40 mg PO BID 28 Days Qty: 56 0RF Continued spironolactone 25 mg tablet 25 mg PO DAILY Qty: 30 11RF peg 3350-electrolytes [GaviLyte-G] 236-22.74-6.74 -5.86 gram recon soln 240 ml PO Q10M Qty: 4000 0RF Rx Instructions: until fecal effluent is clear Eliquis 5 mg tablet 5 mg PO BID 30 Days Qty: 60 5RF atorvastatin 40 mg tablet 40 mg PO DAILY Qty: 30 5RF clopidogrel 75 mg tablet 75 mg PO QAM 30 Days Qty: 30 5RF enalapril maleate 10 mg tablet 10 mg PO DAILY 30 Days Qty: 30 5RF furosemide 20 mg tablet 40 mg PO DAILY Qty: 60 5RF Rx Instructions: According to Dr starks on 10/04/21 his lasix was increased to bid metoprolol succinate 100 mg tablet extended release 24 hr 100 mg PO DAILY Qty: 30 5RF albuterol sulfate 90 mcg/actuation HFA aerosol inhaler 2 puff INHALATION Q4H PRN (Reason: Wheezing/Dyspnea) Qty: 8.5 3RF fluticasone propion-salmeterol [Advair Diskus] 250-50 mcg/dose Blister With Device 1 inh INHALATION BID acetaminophen [Tylenol Extra Strength] 500 mg Tablet 1,000 mg PO Q6H PRN (Reason: Pain) alum-mag hydroxide-simeth 200-200-20 mg/5 mL Suspension 15 ml PO Q6H PRN (Reason: Upset Stomach) bismuth subsalicylate 525 mg/15 mL Suspension 525 mg PO QID PRN (Reason: upset stomach) nitroglycerin [Nitrostat] 0.4 mg Tablet, Sublingual 0.4 mg sublingual UD PRN (Reason: chest pain) Qty: 10 0RF Rx Instructions: If pain is not relieved or worsens 3 to 5 minutes after 1 dose, seek immediate emergency medical attention No Action potassium chloride 10 mEq tablet extended release 10 meq PO DAILY 7 Days Qty: 7 0RF (DME) Shower Chair Misc See Rx Instructions .ROUTE Qty: 1 0RF Rx Instructions: As directed Farxiga 5 mg tablet 10 mg PO DAILY Qty: 90 1RF Discharge Orders: Discharge Order- CHF (Routine); Ordered 08/04/22 Ordered By: Osmani Iverson/Other Patient Handouts: Managing Type 2 Diabetes Admission Data Admit Date/Time: 08/02/22 09:03 Attending Provider: Osmani Doe Admit Provider: Clarence Teague Primary Care Provider: Janell Aldana Other Interventions: Discharge Summary Assessment (RN) Last Done: 08/04/22 16:12 Coding Level of Care Code HOSP INP/OBS DISCH >30 MIN Diagnoses Nausea & vomiting R11.2 Alcohol withdrawal F10.939 PAF (paroxysmal atrial fibrillation) I48.0 T2DM (type 2 diabetes mellitus) E11.9 CKD (chronic kidney disease), stage III N18.30 Chronic systolic congestive heart failure, NYHA class 2 I50.22 COPD (chronic obstructive pulmonary disease) J44.9
[2022-08-05] MEDS ORDERED: GABAPENTIN 600 MG TAB PO SCH (22:00)
[2022-08-06] MEDS ORDERED: GABAPENTIN 600 MG TAB PO SCH (06:00)
== END 2022-08-04 18:16 | disposition home or self-care (01) | DRG 392 ==
LOC: ED 05:10 → INTOOBSV 09:03 → EDINP 09:03 → SUATTDRO 09:03 → 2S 09:56

== ENCOUNTER 2023-01-29 10:03 | Inpatient (IN) ==
--- NOTE | 2023-01-29 10:24 | Emergency Department Note ---
History of Present Illness General Chief complaint: Shortness of Breath/Dyspnea Stated complaint: SOB, SWELLING TO BOTH LEGS Time Seen by Provider: 01/29/23 10:06 History of Present Illness Maximum Pain Intensity: 8 72-year-old male presents emergency department with a 1 week history of s hortness of breath dyspnea on exertion and swollen legs. Patient has been drinking alcohol he states he drinks beer. Patient states he is not hungry has had decreased appetite. Past 2 days he has had increased work of breathing. Family brought him in today due to shortness of breath. Patient denies fever denies cough. Patient's had a prior history of congestive heart failure. Patient states he had substernal chest pressure this morning. Patient also states that he has been eating nitro like candy. Patient states that he started drinking a lot more beer recently. Home Medications Medication Instructions Recorded Confirmed Type Shower Chair #1 ea 08/19/22 09/21/22 Rx albuterol sulfate 90 mcg/actuation 2 puff inhalation Q4H PRN 10/20/22 01/29/23 Rx aerosol inhaler Wheezing/Dyspnea #8.5 grams insulin glargine 100 unit/mL (3 10 unit (0.1 mL) SC BID #300 mL 10/20/22 01/29/23 Rx mL) subcutaneous pen (Lantus Solostar U-100 Insulin) levothyroxine 25 mcg tablet 25 mcg PO DAILY #30 tabs 10/20/22 01/29/23 Rx apixaban 5 mg tablet (Eliquis) 5 mg PO BID 30 days #60 tabs 10/24/22 01/29/23 Rx atorvastatin 40 mg tablet 40 mg PO DAILY #30 tabs 10/24/22 01/29/23 Rx clopidogrel 75 mg tablet 75 mg PO QAM 30 days #30 tabs 10/24/22 01/29/23 Rx enalapril maleate 10 mg tablet 10 mg PO DAILY 30 days #30 tabs 10/24/22 01/29/23 Rx fluticasone 250 mcg-salmeterol 50 1 inh inhalation BID #60 ea 10/24/22 01/29/23 Rx mcg/dose blistr powdr for inhalation (Advair Diskus) furosemide 20 mg tablet 40 mg PO DAILY #60 tabs 10/24/22 01/29/23 Rx metoprolol succinate 100 mg 100 mg PO DAILY #30 tabs 10/24/22 01/29/23 Rx tablet,extended release 24 hr nitroglycerin 0.4 mg sublingual 0.4 mg sublingual UD PRN chest 10/24/22 01/29/23 Rx tablet (Nitrostat) pain #10 tabs potassium chloride 10 mEq 10 meq PO DAILY #30 tabs 10/25/22 01/29/23 Rx tablet,extended release thiamine HCl (vitamin B1) 100 mg 100 mg PO QAM #30 tabs 10/25/22 01/29/23 Rx tablet dapagliflozin propanediol 5 mg 5 mg PO AMPM 01/29/23 01/29/23 History tablet (Farxiga) gabapentin 100 mg capsule 100 mg PO TID 01/29/23 01/29/23 History peg 3350-electrolytes 236 0 ml PO Q10M 01/29/23 01/29/23 History gram-22.74 gram-6.74 gram-5.86 gram solution (GaviLyte-G) spironolactone 25 mg tablet 0 mg PO DAILY 01/29/23 01/29/23 History Allergies Allergy/AdvReac Type Severity Reaction Status Date / Time No Known Allergies Allergy Verified 09/21/22 08:12 Past Med/Surg History Medical History Acute hyponatremia Acute kidney injury Acute systolic heart failure Alcohol abuse Alcohol abuse Anxiety Atrial fibrillation follows with [facility] CHF (congestive heart failure) COPD (chronic obstructive pulmonary disease) COPD (chronic obstructive pulmonary disease) DM2 (diabetes mellitus, type 2) DVT prophylaxis Elevated troponin Fall Fracture dislocation of right ankle GERD (gastroesophageal reflux disease) History of anesthesia reaction "my heart started to race" - during eye surgery [facility] History of left heart catheterization (LHC) "nonocclusive CAD, normal LV function" History of myocardial infarction History of stroke 09/2021 - no deficits HLD (hyperlipidemia) VENETIE (hard of hearing) HTN (hypertension) Hypervolemia Increasing shortness of breath Left ventricular dysfunction NICM (nonischemic cardiomyopathy) Noncompliance Osteoarthritis PAD (peripheral artery disease) Poor historian Syndesmotic disruption of right ankle Surgical History History of ankle surgery History of cardiac cath 09/2021 [place] - 1 stent 2008-nonocclussive CAD History of cervical spinal surgery ROM WNL History of colonoscopy History of esophagogastroduodenoscopy (EGD) History of non-cataract eye surgery History of vascular surgery Family History Brother Pancreatic cancer Cancer pancreatic cancer Mother Diabetes Myocardial infarction Sister Diabetes Father Heart disease Myocardial infarction Other No family history of adverse response to anesthesia Denies family history of Ovarian cancer Prostate cancer Breast cancer Colorectal cancer Social History Smoking Status: Current every day smoker Tobacco Type: Cigarettes Second Hand Exposure: No; Do You Dip or Chew Tobacco: No; Hx Alcohol Use: Yes Alcohol type: beer Alcohol Intake Frequency: 4 or More x per/Week Hx Substance Use: No Preferred Language: Austrian Communication Ability: Effective Visual Impairment: No Limitations Hearing Ability: Hard of Hearing Bisque Finisher Required: No Beliefs That Will Affect Care: None marital status: Single Current Living Situation: Alone current occupational status: retired How many Children do You have: 4 Feels Safe at Home: Yes Childhood Exposure to Second-Hand Smoke: Yes caffeine: Yes (coffee) during the past year weight has: remained stable Dental Care, Regularly: No Physical Activity Frequency: Daily Seatbelt Use: always Sunscreen Use: No Assistive Devices: None Review of Systems A total of 10 systems reviewed and were otherwise negative Cardiovascular: + dyspnea, + dyspnea at rest and + dyspnea on exertion; no chest pain Gastrointestinal: no abdominal pain Physical Exam Vital Signs Vital Signs - 24 hr 01/29/23 10:07 01/29/23 10:07 01/29/23 10:28 Temperature 36.7 C Temperature Source Temporal Artery Scan Pulse Rate 128 H 104 H Pulse Rate [Right Finger] Pulse Rhythm [Right Finger] Pulse Strength [Right Finger] Respiratory Rate 20 Respiratory Effort / Characteristics Non-Labored Respiratory Depth Normal Respiratory Pattern Blood Pressure 175/99 H Blood Pressure [Right Arm] Blood Pressure Mean 124 Blood Pressure Mean [Right Arm] Blood Pressure Position [Right Arm] Pulse Oximetry 96 96 Oxygen Delivery Method Room Air Room Air Sepsis Recent Fever Within 48 Hours No Sepsis New/Unexplained Change in Mental Status No Sepsis Action Taken by Nursing No Action Required 01/29/23 11:33 Temperature Temperature Source Pulse Rate Pulse Rate [Right Finger] 100 H Pulse Rhythm [Right Finger] Regular Pulse Strength [Right Finger] Normal Respiratory Rate 30 H Respiratory Effort / Characteristics Short of Breath Respiratory Depth Shallow Respiratory Pattern Tachypnea Blood Pressure Blood Pressure [Right Arm] 183/126 H Blood Pressure Mean Blood Pressure Mean [Right Arm] 145 Blood Pressure Position [Right Arm] Sitting Pulse Oximetry 97 Oxygen Delivery Method Room Air Sepsis Recent Fever Within 48 Hours Sepsis New/Unexplained Change in Mental Status Sepsis Action Taken by Nursing GENERAL: Patient is awake alert in no acute distress patient is resting comfortably and showing no signs of anxiety EYES: The conjunctivae are clear. The pupils are round and reactive. EARS, NOSE, MOUTH AND THROAT: The nose is without any evidence of any deformity. Mucous membranes are moist. Tongue is midline. NECK: The neck is nontender and supple. RESPIRATORY: Crackles bilaterally CARDIOVASCULAR: Tachycardia noted there no murmurs rubs or gallops normal S1 normal S2. GASTROINTESTINAL: The abdomen is soft. Abdomen is nontender. BACK: No midline tenderness or or step-off noted range of motion in flexion extension as well as rotation no signs of muscle spasm noted MUSCULOSKELETAL/EXTREMITIES: There is no evidence of gross deformity full range of motion is noted in the hips and shoulders. Bilateral lower extremity pitting edema SKIN: There is no obvious evidence of any rash. There are no petechiae, pallor or cyanosis noted. Patient is diaphoretic NEUROLOGIC: Patient is awake alert and oriented x3 strength is symmetric Course Reevaluation(s) Reevaluation #1: Patient was started on IV Lasix, aspirin, resting in no distress on repeat examination. No current chest pain Time: :53 Consultations Consultation #1: Case was discussed with the [facility] hospitalist for admission for ACS, CHF, hyponatremia Time: :53 Administered Medications Discontinued Medications Aspirin (Aspirin Chew 324 Mg) 324 mg PO NOW STA Stop: 01/29/23 11:15 Last Admin: 01/29/23 11:23 Dose: 324 mg Documented By: ALANNA Furosemide (Furosemide 40 Mg/4 Ml Vial) 40 mg IV ONE ONE Stop: 01/29/23 11:15 Last Admin: 01/29/23 11:24 Dose: 40 mg Documented By: ALANNA Methylprednisolone (Methylprednisolone 125 Mg/2 Ml Vial) 125 mg IV NOW STA Stop: 01/29/23 10:36 Last Admin: 01/29/23 11:03 Dose: 125 mg Documented By: ALANNA Critical Care Time Critical Care Time: Yes Total Critical Care Time: 35 I have personally spent greater than 35 minutes of critical care time in the direct management of this patient. This includes bedside care, interpretation of diagnostic studies, and testing, discussion with consultants, patient, and family members, and other required patient management activities. These minutes are in excess of all separately billable procedures. Medical Decision Making Medical Records Attestation: I reviewed the patient's medical records. Home Medications Current Medication List: was personally reviewed by me Laboratory Data Attestation: I reviewed the patient's lab results. Patient has an elevated troponin consistent with ACS, elevated BNP consistent with CHF, hyponatremia is present 01/29/23 10:22 01/29/23 10:22 Lab Results 01/29/23 01/29/23 01/29/23 Range/Units 10:22 10:22 10:22 WBC 7.30 (4.8-10.8) K/ul RBC 4.35 L (4.70-6.10) M/uL Hgb 13.4 L (14.0-18.0) g/dl Hct 38.0 L (42.0-52.0) % MCV 87.4 (80.0-100.0) fL MCH 30.8 (25.0-34.0) pg MCHC 35.3 (32.0-36.0) g/dL RDW Std Deviation 42.6 (36.4-46.3) fL RDW Coeff of Cole 13.7 (11.5-14.5) % Plt Count 178 (130-400) K/uL MPV 10.8 (9.4-12.4) fL Immature Gran % (Auto) 0.4 % Neut % (Auto) 69.9 % Lymph % (Auto) 15.9 % [place] % (Auto) 12.6 % Eos % (Auto) 0.4 % Baso % (Auto) 0.8 % Neut # (Auto) 5.10 (1.40-6.50) K/uL Lymph # (Auto) 1.16 L (1.2-3.4) K/uL [place] # (Auto) 0.92 H (0.11-0.59) K/uL Eos # (Auto) 0.03 (0-0.50) K/uL Baso # (Auto) 0.06 (0-0.2) K/uL Immature Gran # (Auto) 0.03 (0.01-0.20) K/uL PT 12.5 H (9.0-12.0) Seconds INR 1.2 H (0.9-1.1) APTT 27.9 (21.0-31.0) Seconds PTT Ratio 1.0 Sodium 124 L (136-145) mmol/L Potassium 4.3 (3.5-5.1) mmol/L Chloride 92 L (98-107) mmol/L Carbon Dioxide 24 (21-32) mmol/L Anion Gap 8 (3-11) BUN 9 (6-23) mg/dl Creatinine 1.13 (0.6-1.4) mg/dl Est Cr Clr Drug Dosing Not Reportable Est GFR ( Amer) 75.4 ml/min Est GFR (Non-Af Amer) 65.0 ml/min BUN/Creatinine Ratio 8.0 L (10-20) Glucose 214 H (70-99(Fasting)) mg/dl Calcium 8.6 (8.6-10.3) mg/dl Total Bilirubin 1.0 (0.2-1.0) mg/dl AST 26 (13-39) U/L ALT 19 (7-52) U/L Alkaline Phosphatase 113 H (34-104) U/L Troponin I High Sens 290.8 H* (0-20) pg/ml B-Natriuretic Peptide (0-100) pg/ml Total Protein 7.0 (6.0-8.3) gm/dl Albumin 3.9 (3.4-5.0) gm/dl Globulin 3.1 (2.5-4.0) gm/dl Albumin/Globulin Ratio 1.3 (0.9-2) Lipase 22 (11-82) U/L 01/29/23 Range/Units 10:22 WBC (4.8-10.8) K/ul RBC (4.70-6.10) M/uL Hgb (14.0-18.0) g/dl Hct (42.0-52.0) % MCV (80.0-100.0) fL MCH (25.0-34.0) pg MCHC (32.0-36.0) g/dL RDW Std Deviation (36.4-46.3) fL RDW Coeff of Cole (11.5-14.5) % Plt Count (130-400) K/uL MPV (9.4-12.4) fL Immature Gran % (Auto) % Neut % (Auto) % Lymph % (Auto) % [place] % (Auto) % Eos % (Auto) % Baso % (Auto) % Neut # (Auto) (1.40-6.50) K/uL Lymph # (Auto) (1.2-3.4) K/uL [place] # (Auto) (0.11-0.59) K/uL Eos # (Auto) (0-0.50) K/uL Baso # (Auto) (0-0.2) K/uL Immature Gran # (Auto) (0.01-0.20) K/uL PT (9.0-12.0) Seconds INR (0.9-1.1) APTT (21.0-31.0) Seconds PTT Ratio Sodium (136-145) mmol/L Potassium (3.5-5.1) mmol/L Chloride (98-107) mmol/L Carbon Dioxide (21-32) mmol/L Anion Gap (3-11) BUN (6-23) mg/dl Creatinine (0.6-1.4) mg/dl Est Cr Clr Drug Dosing Est GFR ( Amer) ml/min Est GFR (Non-Af Amer) ml/min BUN/Creatinine Ratio (10-20) Glucose (70-99(Fasting)) mg/dl Calcium (8.6-10.3) mg/dl Total Bilirubin (0.2-1.0) mg/dl AST (13-39) U/L ALT (7-52) U/L Alkaline Phosphatase (34-104) U/L Troponin I High Sens (0-20) pg/ml B-Natriuretic Peptide 3298 H (0-100) pg/ml Total Protein (6.0-8.3) gm/dl Albumin (3.4-5.0) gm/dl Globulin (2.5-4.0) gm/dl Albumin/Globulin Ratio (0.9-2) Lipase (11-82) U/L Imaging Data Attestation: I personally reviewed and interpreted this imaging study as follows: My Impression: Chest x-ray interpreted by me cardiomegaly Radiologist's Impression: Chest X-Ray 01/29/23 10:12 XR chest 1V portable HISTORY: 72 years-old Male Chest pain, nonspecific acute chest pain COMPARISON: 08/02/2022 TECHNIQUE: AP view of the chest FINDINGS: Cardiac silhouette is enlarged. Atherosclerosis of the aorta. Subtle bilateral reticulonodular densities. No pneumothorax, pleural effusion or lobar airspace consolidation. Bones appear grossly intact. IMPRESSION: 1. Subtle reticular nodular opacities are suspicious for a nonspecific infectious or inflammatory pneumonitis. 2. Cardiomegaly without pulmonary edema. ACT 112: Negative or not required by law. The above report was generated using voice recognition software. It may contain grammatical, syntax or spelling errors. Electronically signed by: Gino Wagner M.D. 01/29/2023 10:31 AM ECG Data Attestation: I personally reviewed and interpreted this ECG as follows: MDM Narrative Medical decision making differential diagnosis includes CHF, pneumonia, pleural effusion, COPD exacerbation, anemia, cardiac dysrhythmia Plan check labs, EKG, chest x-ray Independent history was provided a at bedside by the patient's [id number] External medical records were reviewed HEART score is 5 Patient has rate controlled A-fib, elevated troponin elevated BNP, clinical exam that revealed CHF, will be treated Lasix, currently on Eliquis, no current chest pain. Patient will be admitted for further treatment of ACS CHF and hyponatremia. The case was discussed with the [facility] hospitalist for admission at 1150 Impression & Plan ACS (acute coronary syndrome), CHF (congestive heart failure), Acute hyponatremia, A-fib Discharge Plan Visit Data Chief Complaint: Shortness of Breath/Dyspnea Stated Complaint: SOB, SWELLING TO BOTH LEGS ED Provider: Fili Villar Discharge Problem: ACS (acute coronary syndrome), CHF (congestive heart failure), Acute hyponatremia, A-fib Patient Disposition: Admitted As Inpatient Forms Stand Alone Forms: My [facility] Prescriptions Prescriptions: No Action (DME) Shower Chair Misc See Rx Instructions .Route Qty: 1 0RF Rx Instructions: As directed. albuterol sulfate 90 mcg/actuation HFA aerosol inhaler 2 puff INHALATION Q4H PRN (Reason: Wheezing/Dyspnea) Qty: 8.5 3RF insulin glargine [Lantus Solostar U-100 Insulin] 100 unit/mL (3 mL) insulin pen 10 unit SC BID Qty: 300 2RF levothyroxine 25 mcg tablet 25 mcg PO DAILY Qty: 30 2RF fluticasone propion-salmeterol [Advair Diskus] 250-50 mcg/dose blister with device 1 inh INHALATION BID Qty: 60 3RF atorvastatin 40 mg tablet 40 mg PO DAILY Qty: 30 5RF clopidogrel 75 mg tablet 75 mg PO QAM 30 Days Qty: 30 5RF Eliquis 5 mg tablet 5 mg PO BID 30 Days Qty: 60 5RF enalapril maleate 10 mg tablet 10 mg PO DAILY 30 Days Qty: 30 5RF furosemide 20 mg tablet 40 mg PO DAILY Qty: 60 5RF Rx Instructions: According to Dr starks on 10/04/21 his lasix was increased to bid metoprolol succinate 100 mg tablet extended release 24 hr 100 mg PO DAILY Qty: 30 5RF nitroglycerin [Nitrostat] 0.4 mg tablet, sublingual 0.4 mg sublingual UD PRN (Reason: chest pain) Qty: 10 0RF Rx Instructions: If pain is not relieved or worsens 3 to 5 minutes after 1 dose, seek i mmediate emergency medical attention potassium chloride 10 mEq tablet extended release 10 meq PO DAILY Qty: 30 5RF thiamine HCl (vitamin B1) 100 mg tablet 100 mg PO QAM Qty: 30 5RF gabapentin 100 mg capsule 100 mg PO TID spironolactone 25 mg tablet 0 mg PO DAILY Rx Instructions: Per daughter daughter she isnt sure if pt still takes this medication. Was filled in October 2022 peg 3350-electrolytes [GaviLyte-G] 236-22.74-6.74 -5.86 gram recon soln 0 ml PO Q10M Rx Instructions: per daughter he uses once a day? until fecal effluent is clear Farxiga 5 mg tablet 5 mg PO AMPM Referrals Referrals: Janell Aldana DO [Primary Care Provider] -
--- NOTE | 2023-01-29 10:32 | XRay Report ---
XR chest 1V portable HISTORY: 72 years-old Male Chest pain, nonspecific acute chest pain COMPARISON: 08/02/2022 TECHNIQUE: AP view of the chest FINDINGS: Cardiac silhouette is enlarged. Atherosclerosis of the aorta. Subtle bilateral reticulonodular densit ies. No pneumothorax, pleural effusion or lobar airspace consolidation. Bones appear grossly intact. IMPRESSION: 1. Subtle reticular nodular opacities are suspicious for a nonspecific infectious or inflammatory pne umonitis. 2. Cardiomegaly without pulmonary edema. ACT 112: Negative or not required by law. The above report was generated using voice recognition software. It may contain grammatical, syntax o r spelling errors. Electronically signed by: Gino Wagner M.D. 01/29/2023 10:31 AM
[2023-01-29] MEDS ORDERED: methylPREDNISolone 125 MG/2 ML VIAL IV STA (10:35)
[2023-01-29 10:39] LABS: Basophils # (auto) 0.06 K/uL (0-0.2); Basophils % (auto) 0.8 %; Eosinophils # (auto) 0.03 K/uL (0-0.50); Eosinophils % (auto) 0.4 %; Hemoglobin 13.4 g/dl (14.0-18.0); Immature Granulocytes # (auto) 0.03 K/uL (0.01-0.20); Immature Granulocytes % (auto) 0.4 %; Lymphocytes # (auto) 1.16 K/uL (1.2-3.4); Lymphocytes % (auto) 15.9 %; Mean Corpuscular Hemoglobin 30.8 pg (25.0-34.0); Mean Corpuscular Hgb Conc 35.3 g/dL (32.0-36.0); Mean Corpuscular Volume 87.4 fL (80.0-100.0); Mean Platelet Volume 10.8 fL (9.4-12.4); Monocytes # (auto) 0.92 K/uL (0.11-0.59); Monocytes % (auto) 12.6 %; Neutrophils % (auto) 69.9 %; Platelet Count 178 K/uL (130-400); RDW Coefficient of Variation 13.7 % (11.5-14.5); RDW Standard Deviation 42.6 fL (36.4-46.3); Red Blood Count 4.35 M/uL (4.70-6.10)
[2023-01-29 10:57] LABS: Alanine Aminotransferase 19 U/L (7-52); Albumin Globulin Ratio 1.3 (0.9-2); Albumin Level 3.9 gm/dl (3.4-5.0); Alkaline Phosphatase 113 U/L (34-104); Anion Gap 8 (3-11); Aspartate Aminotransferase 26 U/L (13-39); Blood Urea Nitrogen 9 mg/dl (6-23); Calcium 8.6 mg/dl (8.6-10.3); Carbon Dioxide 24 mmol/L (21-32); Chloride 92 mmol/L (98-107); Est GFR (African American) 75.4 ml/min; Globulin 3.1 gm/dl (2.5-4.0); Glucose 214 mg/dl (70-99(Fasting)); Lipase 22 U/L (11-82); Potassium 4.3 mmol/L (3.5-5.1); Sodium 124 mmol/L (136-145)
[2023-01-29 11:06] LABS: Troponin I High Sensitivity 290.8 pg/ml (0-20)
[2023-01-29 11:08] LABS: INR 1.2 (0.9-1.1); Partial Thromboplastin Time 27.9 Seconds (21.0-31.0); Prothrombin Time 12.5 Seconds (9.0-12.0)
[2023-01-29] MEDS ORDERED: ASPIRIN CHEW 324 MG PO STA (11:14)
[2023-01-29] MEDS ORDERED: FUROSEMIDE 40 MG/4 ML VIAL IV ONE (11:14)
--- NOTE | 2023-01-29 11:47 | History & Physical Report ---
Date of Service January 29, 2023 Assessment & Plan (1) SOB (shortness of breath): Plan: Shortness of breath, suspect acute on chronic COPD +/- acute on chronic congestive heart failure Patient is with elevated BNP of 3298, acute hyponatremia, has been drinking 1838 beers daily for the last few weeks. No transaminitis. He is very short of breath and desats during conversation while in the room, however lungs are wheezy without crackles/Rales and CXR does not show significant pulmonary edema. He does have a EF of 25% as noted. With significant wheezing presents more as acute on chronic COPD exacerbation, will treat conservatively for additional fluid overload as well 10/11 cardiac cath: 90% mid LAD, 60% ostial D1 with PCI of mid LAD Metoprolol, enalapril, atorvastatin, Plavix, spironolactone continued No leukocytosis Sodium 124 in the setting of suspected volume overload Creatinine 1.13, baseline 1.21.5 previously High sensitive troponin 290 suspect demand. Trended. No acute EKG changes. Patient is chest pain-free at time of admitting assessed BNP 3298 CXR: Reticular nodular opacities suspicious for nonspecific infectious versus inflammatory pneumonitis. Cardiomegaly without pulmonary edema EKG: A-fib, no acute ischemic change Last echo 08/03/2022: EF 25-30%, moderate to severe global left ventricular hypokinesis predominantly in inferior wall, LV mildly dilated. Moderate MR, mild TR. Last EKG 07/2022: A-fib, lateral T wave inversions, QTc 474 ? Unstable angina Without chest pain at time of his assessment. Has had intermittent chest pain with exertion and at rest for which he has taken nitro at home which has consistently relieved his symptoms. Symptoms were substernal received full dose aspirin in ER Troponin trended, echo pending. -Given concern for potential unstable angina patient switched from DOAC to heparin drip, cardiology consulted No acute EKG changes on admit Acute on chronic COPD Due to wheezing and increased shortness of breath without significant pulmonary edema on x-ray and x-ray opacities suspicious for nonspecific infectious versus inflammatory pneumonitis patient is treated for acute on chronic COPD with atypical coverage, methylprednisolone 125x1 given in ER. Prednisone continued. Doxycycline selected over azithromycin due to borderline QT home inhalers continued, albuterol as needed Patient is with increased expiratory wheezes on exam Bedbugs 3 bedbugs observed on patient's jehakan while in ER, charge notified. 1 bedbug kept in sanitized cloth, will have another placed into urine sample cup for verification Isolation precaution, decontamination protocol Alcohol abuse Drinks alcohol several times daily, 1832 beers per day over the last few weeks Expresses a desire to stop drinking "I do not really want to, but I have to " Withdrawal protocol, high-dose thiamine, folic acid daily Low-dose gabapentin protocol due to high intake and increased risk with tremors on exam Banana bag deferred due to suspected fluid overload Suspect additional alcohol induced gastritis due to patient's stomach discomfort, will add PPI and H2 Paroxysmal A-fib Continue Eliquis twice daily Continue metoprolol L PVD -History of left lower extremity stents No acute change/pain DM2 Patient reports he stopped taking his Lantus 10 units twice daily at home as he felt he was going low with this, and saw commercials on TV that this could hurt him BSG 214 on admission, patient has been eating very little and has been drinking mostly beer Weight-based basal bolus added on admit Goal BSG 1 101 DVT prophylaxis: Anticoagulated Disposition: PCU Diet: DM 2, heart healthy CODE STATUS: Full code (2) CHF (congestive heart failure): (3) Acute hyponatremia: (4) A-fib: (5) T2DM (type 2 diabetes mellitus): (6) CKD (chronic kidney disease), stage III: History of Present Illness Primary Care Provider: Janell Aldana DO Travis is a 72-year-old male with a past medical history of type II DM, paroxysmal SVT, CKD, paroxysmal A-fib, heart failure with reduced ejection fraction, GERD, hyperlipidemia, COPD who presents emergency department with 1 week of lower extremity swelling, weight gain, increased work of breathing, dyspnea on exertion with develop of 1 day of substernal chest pain for which she has been taking nitro routinely. Travis is seen at the bedside with his daughter in law Henna. Travis reports he has been short of breath and with stomach upset for 1 week Taking nitro 'like candy' in the last few days. +swelling in his legs x5-6 days. Gets much better with elevation normally Has had some bright red blood in BMs intermittently. Mother had colon cancer, pt has been avoiding a colonoscopy due to fear of this. FHX of [place]. Pt has a hx of heart failure with cardia stents in addition to stents in his left leg No chest pain at admission +history fo DM, BSG usually 130s at home. Doesn't take his insulin because he has a very poor appetite. Takes 10u lantus BID but stopped taking because he say the news saying there were lawsuits saying insulin can make people sick No tobacco product use ETOH: Zeferino armendariz drank a 15 pack. 'I do good when I go home" Per DIL does well at first with nursing services, the minute they leave and the second his friend comes over he starts drinking again. Sister and family have been borderline estranged due to ETOH and relapse in the past. He expresses a desire to stop drinking. "I have a hard time wanting to, but I have". Denies history of seizures/withdrawal. Has been drinking ~15-36 beers per day at least for the last month, sometimes more. Medical History: Reviewed Medications: Reviewed Surgical History: Reviewed Family history: Reviewed Allergies: Reviewed Social History: No tobacco use. Code Status: Full Code Allergies Allergy/AdvReac Type Severity Reaction Status Date / Time No Known Allergies Allergy Verified 09/21/22 08:12 Home Medications Medication Instructions Recorded Confirmed Type Shower Chair #1 ea 08/19/22 09/21/22 Rx albuterol sulfate 90 mcg/actuation 2 puff inhalation Q4H PRN 10/20/22 01/29/23 Rx aerosol inhaler Wheezing/Dyspnea #8.5 grams insulin glargine 100 unit/mL (3 10 unit (0.1 mL) SC BID #300 mL 10/20/2212/16 Rx mL) subcutaneous pen (Lantus Solostar U-100 Insulin) levothyroxine 25 mcg tablet 25 mcg PO DAILY #30 tabs 10/20/22 01/29/23 Rx apixaban 5 mg tablet (Eliquis) 5 mg PO BID 30 days #60 tabs 10/24/22 01/29/23 Rx atorvastatin 40 mg tablet 40 mg PO DAILY #30 tabs 10/24/22 01/29/23 Rx clopidogrel 75 mg tablet 75 mg PO QAM 30 days #30 tabs 10/24/22 01/29/23 Rx enalapril maleate 10 mg tablet 10 mg PO DAILY 30 days #30 tabs 10/24/22 01/29/23 Rx fluticasone 250 mcg-salmeterol 50 1 inh inhalation BID #60 ea 10/24/22 01/29/23 Rx mcg/dose blistr powdr for inhalation (Advair Diskus) furosemide 20 mg tablet 40 mg PO DAILY #60 tabs 10/24/22 01/29/23 Rx metoprolol succinate 100 mg 100 mg PO DAILY #30 tabs 10/24/22 01/29/23 Rx tablet,extended release 24 hr nitroglycerin 0.4 mg sublingual 0.4 mg sublingual UD PRN chest 10/24/22 01/29/23 Rx tablet (Nitrostat) pain #10 tabs potassium chloride 10 mEq 10 meq PO DAILY #30 tabs 10/25/22 01/29/23 Rx tablet,extended release thiamine HCl (vitamin B1) 100 mg 100 mg PO QAM #30 tabs 10/25/22 01/29/23 Rx tablet dapagliflozin propanediol 5 mg 5 mg PO AMPM 01/29/23 01/29/23 History tablet (Farxiga) gabapentin 100 mg capsule 100 mg PO TID 01/29/23 01/29/23 History peg 3350-electrolytes 236 0 ml PO Q10M 01/29/23 01/29/23 History gram-22.74 gram-6.74 gram-5.86 gram solution (GaviLyte-G) spironolactone 25 mg tablet 0 mg PO DAILY 01/29/23 01/29/23 History Past Med/Surg History Medical History Acute hyponatremia Acute kidney injury Acute systolic heart failure Alcohol abuse Alcohol abuse Anxiety Atrial fibrillation follows with [facility] CHF (congestive heart failure) COPD (chronic obstructive pulmonary disease) COPD (chronic obstructive pulmonary disease) DM2 (diabetes mellitus, type 2) DVT prophylaxis Elevated troponin Fall Fracture dislocation of right ankle GERD (gastroesophageal reflux disease) History of anesthesia reaction "my heart started to race" - during eye surgery [facility] History of left heart catheterization (LHC) "nonocclusive CAD, normal LV function" History of myocardial infarction 1980s History of stroke 09/2021 - no deficits HLD (hyperlipidemia) [place] (hard of hearing) HTN (hypertension) Hypervolemia Increasing shortness of breath Left ventricular dysfunction NICM (nonischemic cardiomyopathy) Noncompliance Osteoarthritis PAD (peripheral artery disease) Poor historian Syndesmotic disruption of right ankle Surgical History History of ankle surgery History of cardiac cath 09/2021 [place] - 1 stent 2008-nonocclussive CAD History of cervical spinal surgery ROM WNL History of colonoscopy History of esophagogastroduodenoscopy (EGD) History of non-cataract eye surgery History of vascular surgery Family History Brother Pancreatic cancer Cancer pancreatic cancer Mother Diabetes Myocardial infarction Sister Diabetes Father Heart disease Myocardial infarction Other No family history of adverse response to anesthesia Denies family history of Ovarian cancer Prostate cancer Breast cancer Colorectal cancer Social History Smoking Status: Current every day smoker Tobacco Type: Cigarettes Second Hand Exposure: No; Do You Dip or Chew Tobacco: No; Hx Alcohol Use: Yes Alcohol type: beer Alcohol Intake Frequency: 4 or More x per/Week Hx Substance Use: No Preferred Language: Upper Sorbian Communication Ability: Effective Visual Impairment: No Limitations Hearing Ability: Hard of Hearing [employer]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 NAD. Cooperative. Tremulous HEENT: Atraumatic, normocephalic. Vision/hearing grossly intact Pulm: Scattered expiratory wheezes with bibasilar crackles symmetrical chest rise. No increased work of breathing. No respiratory distress. Cardiac: RRR, SM. Radial pulses intact and symmetrical. Abdominal: Nontender, nondistended, soft. BS present. Extremities: 1+2+ bilateral lower extremity edema Results & Data Results & Data Vital Signs (Past 12 Hours) Vital Signs Temp Pulse Pulse Resp BP BP Pulse Ox 01/29/23 11:33 100 H 30 H 183/126 H 97 01/29/23 10:28 104 H 01/29/23 10:07 96 01/29/23 10:07 36.7 C 128 H 20 175/99 H 96 O2 Del Method 01/29/23 11:33 Room Air 01/29/23 10:28 01/29/23 10:07 Room Air 01/29/23 10:07 Room Air PG Care Time/CCT Total # of Minutes Spent Total Time Spent with Patient: Total time spent is greater than 50% in coordination of care (as documented) at patient's floor/unit and/or counseling patient: Coding Level of Care Code 10878 INT INP/OBS CARE 3/75MIN Diagnoses SOB (shortness of breath) R06.02 CHF (congestive heart failure) I50.9 Acute hyponatremia E87.1 A-fib I48.91 T2DM (type 2 diabetes mellitus) E11.9 CKD (chronic kidney disease), stage III N18.30
[2023-01-29] MEDS ORDERED: Ativan IV Alcohol Withdrawal--Active Protocol IV PRN (12:20)
[2023-01-29] MEDS ORDERED: LORazepam 2 MG/1 ML VIAL IV PRN ×3 (12:20)
[2023-01-29] MEDS ORDERED: GABAPENTIN 600 MG TAB PO ONE (12:32)
[2023-01-29] MEDS ORDERED: GABAPENTIN 600MG ALCOHOL WITHDRAWAL LOAD PO STA (12:32)
[2023-01-29] MEDS ORDERED: THIAMINE HCL 500 MG in SODIUM CHLORIDE 0.9% 50 ML IV ONE (12:45)
[2023-01-29] MEDS: FOLIC ACID 1 MG TAB PO SCH (14:09)
[2023-01-29] MEDS: HEPARIN SODIUM/DEXTROSE 25,000 UNITS/500 ML BAG IV SCH (14:44)
[2023-01-29 14:52] LABS: Base Excess VBG 1.8 mEq/L; HCO3 VBG 26 mmol/L; Oxygen Saturation VBG 66.9 %; PCO2 VBG 37 mmHg (38-50); PO2 VBG 41 mmHg; pH VBG 7.45 (7.36-7.41)
[2023-01-29] MEDS ORDERED: DEXTROSE 50% 50 ML SYRINGE IV PRN (15:19)
[2023-01-29] MEDS ORDERED: CARBOHYDRATES FOR HYPOGLYCEMIA PO PRN (15:19)
[2023-01-29] MEDS ORDERED: ALBUTEROL HFA 8 GM INHALER INH PRN (15:19)
[2023-01-29] MEDS ORDERED: GLUCAGON FOR INJ 1 MG VIAL SQ PRN (15:19)
[2023-01-29] MEDS ORDERED: NITROGLYCERIN SL 0.4 MG/TAB TAB SL PRN ×2 (15:19)
[2023-01-29] MEDS ORDERED: GLUCOSE 40% GEL 15 GM TUBE PO PRN (15:19)
[2023-01-29] MEDS ORDERED: GLUCOSE 10 TAB/TUBE PO PRN (15:19)
[2023-01-29] MEDS: Heparin IV Adult Wt-Based Low-Dose *NO* Bolus Protocol IV SCH (16:12)
[2023-01-29] MEDS: INSULIN ASPART PER UNIT CHARGE SC SCH ×2 (17:39→20:04)
[2023-01-29] MEDS: FUROSEMIDE 40 MG/4 ML VIAL IV SCH (17:41)
[2023-01-29] MEDS: NITROGLYCERIN 2% OINTMENT 30GM TUBE EXT SCH ×2 (17:49→23:38)
[2023-01-29] MEDS: DOXYCYCLINE HYCLATE 100 MG CAP PO SCH (19:23)
[2023-01-29] MEDS: GABAPENTIN 100 MG CAP PO SCH (19:24)
[2023-01-29] MEDS: ACETAMINOPHEN 325 MG TAB PO PRN (20:03)
[2023-01-29] MEDS: LANTUS PER UNIT CHARGE SQ SCH (20:04)
[2023-01-29] MEDS ORDERED: FAMOTIDINE 20 MG in SYRINGE 3 ML IV SCH (21:00)
[2023-01-29 21:59] LABS: Partial Thromboplastin Ratio 1.3; Partial Thromboplastin Time 36.2 Seconds (21.0-31.0)
[2023-01-30] MEDS: GABAPENTIN 100 MG CAP PO SCH (01:43)
[2023-01-30 04:25] LABS: Basophils # (auto) 0.01 K/uL (0-0.2); Basophils % (auto) 0.2 %; Hematocrit (blood only) 39.8 % (42.0-52.0); Hemoglobin 13.9 g/dl (14.0-18.0); Immature Granulocytes # (auto) 0.01 K/uL (0.01-0.20); Immature Granulocytes % (auto) 0.2 %; Lymphocytes # (auto) 0.56 K/uL (1.2-3.4); Lymphocytes % (auto) 13.2 %; Mean Corpuscular Hemoglobin 30.7 pg (25.0-34.0); Mean Corpuscular Hgb Conc 34.9 g/dL (32.0-36.0); Mean Corpuscular Volume 87.9 fL (80.0-100.0); Mean Platelet Volume 10.9 fL (9.4-12.4); Monocytes # (auto) 0.28 K/uL (0.11-0.59); Monocytes % (auto) 6.6 %; Neutrophils # (auto) 3.37 K/uL (1.40-6.50); Neutrophils % (auto) 79.8 %; Platelet Count 182 K/uL (130-400); RDW Standard Deviation 44.2 fL (36.4-46.3); Red Blood Count 4.53 M/uL (4.70-6.10); White Blood Count 4.23 K/ul (4.8-10.8)
[2023-01-30 04:46] LABS: Albumin Globulin Ratio 1.2 (0.9-2); Albumin Level 3.8 gm/dl (3.4-5.0); BUN Creatinine Ratio 11.3 (10-20); Bilirubin,Total 0.8 mg/dl (0.2-1.0); Calcium 8.7 mg/dl (8.6-10.3); Creatinine Clr Calc Pharmacy 44.6 ml/min; Est GFR (African American) 49.5 ml/min; Est GFR (Non-African American) 42.7 ml/min; Globulin 3.2 gm/dl (2.5-4.0); Potassium 3.3 mmol/L (3.5-5.1)
[2023-01-30 05:09] LABS: Partial Thromboplastin Ratio 1.6
[2023-01-30 05:13] LABS: Partial Thromboplastin Time 46.1 Seconds (21.0-31.0)
[2023-01-30] MEDS ORDERED: POTASSIUM CHLORIDE CRTAB 20 MEQ TABCR PO STA (05:13)
[2023-01-30] MEDS: LEVOTHYROXINE SODIUM 25 MCG TABLET PO SCH (05:24)
[2023-01-30] MEDS: NITROGLYCERIN 2% OINTMENT 30GM TUBE EXT SCH ×3 (05:24→17:54)
[2023-01-30] MEDS ORDERED: POTASSIUM CHLORIDE CRTAB 20 MEQ TABCR PO ONE (07:30)
[2023-01-30] MEDS: FOLIC ACID 1 MG TAB PO SCH (08:14)
[2023-01-30] MEDS: ENALAPRIL MALEATE 10 MG TAB PO SCH (08:14)
[2023-01-30] MEDS: FLUTICASONE/VILANTEROL 100/25MCG 14 PUFFS/INHALER INH SCH (08:14)
[2023-01-30] MEDS: DOXYCYCLINE HYCLATE 100 MG CAP PO SCH ×2 (08:14→20:02)
[2023-01-30] MEDS: CLOPIDOGREL BISULFATE 75 MG TAB PO SCH (08:15)
[2023-01-30] MEDS: METOPROLOL SUCC 50MG EXT REL TAB PO SCH (08:15)
[2023-01-30] MEDS: ATORVASTATIN 40 MG TAB PO SCH (08:15)
[2023-01-30] MEDS: SPIRONOLACTONE 25 MG TAB PO SCH (08:15)
[2023-01-30] MEDS: predniSONE 20 MG TAB PO SCH (08:15)
[2023-01-30] MEDS: FUROSEMIDE 40 MG/4 ML VIAL IV SCH ×2 (08:17→16:52)
[2023-01-30] MEDS: LANTUS PER UNIT CHARGE SQ SCH ×2 (08:59→20:15)
[2023-01-30] MEDS ORDERED: POTASSIUM CHLORIDE 10 MEQ TABCR PO SCH (09:00)
[2023-01-30] MEDS ORDERED: THIAMINE HCL 100 MG TAB PO SCH (09:00)
[2023-01-30] MEDS ORDERED: THIAMINE HCL 300 MG in SODIUM CHLORIDE 0.9% 50 ML IV SCH (09:00)
[2023-01-30] MEDS: INSULIN ASPART PER UNIT CHARGE SC SCH ×4 (09:00→20:01)
[2023-01-30] MEDS: PANTOprazole 40 MG TAB PO SCH (09:47)
[2023-01-30] MEDS ORDERED: PANTOprazole 40 MG in SYRINGE 0 ML IV SCH (11:00)
[2023-01-30] MEDS ORDERED: GABAPENTIN 600 MG TAB PO SCH (12:00)
[2023-01-30] MEDS ORDERED: INSULIN ASPART PER UNIT CHARGE SC STA (13:02)
--- NOTE | 2023-01-30 13:31 | XCELERA ---
[id number]
--- NOTE | 2023-01-30 14:03 | Hospitalist Progress Note ---
Date of Service January 30, 2023 Assessment & Plan (1) SOB (shortness of breath): Plan: Now resolved. He is on room air. This is a combination of acute on chronic systolic CHF and possible NSTEMI. I suspect he also has a degree of exacerbation of COPD. (2) NSTEMI (non-ST elevated myocardial infarction): Plan: Significant troponin elevation since admission. Repeat limited cardiac echo report noted. Cardiology consultation pending. Continue current medical management. (3) CHF (congestive heart failure): Plan: Acute on chronic systolic CHF. Continue Lasix diuresis. Serial CXR (4) Acute hyponatremia: Plan: Serum osmolality. Serial labs. Asymptomatic (5) A-fib: Plan: Chronic. Continue Eliquis. Rate controlled with current medication management (6) T2DM (type 2 diabetes mellitus): Plan: ADA diet. Sliding scale coverage. Continue current medical management (7) CKD (chronic kidney disease), stage III: Plan: Monitor intake and output. Serial labs (8) Infestation by bed bug: Plan: Contact precaution Plan Hopefully home soon, later this week Admission and Anticipated Discharge Date Admission Date: January 29, 2023 Subjective Alert and oriented. No complaints. Troponin emma significantly from admission and this may indicate non-ST elevation OR. Cardiac echo reveals ejection fraction of 25 to 30% with regional wall motion abnormalities similar to previous echo. His EKG however reveals lateral T wave inversion. Cardiology consultation is pending. He remains on intravenous Lasix twice daily. We will repeat portable chest x-ray tomorrow, January 31. Potassium replacement continues. Serial labs ordered. Creatinine bump noted with diuresis but this cannot be helped. Will follow Review of Systems Review of Systems: Constitutional-no fever or chills ENT-no blurred vision, no double vision, no epistaxis, no sore throat Respiratory-no cough, no wheezing, no shortness of breath Cardiac-no palpitations, no chest pain, no syncope GI-no nausea, vomiting, diarrhea, melena, hematochezia -no urinary retention, no urinary incontinence, no dysuria, no hematuria Musculoskeletal-no joint pain, no muscle tenderness Skin-no bruising, no rashes, no pruritus Neuro-no isolated weakness, no paresthesia, no weakness Psych-no depression, no anxiety Physical Exam Physical Exam: General-alert and oriented x3, no fevers, no chills HEENT-head atraumatic and normocephalic, pupils equal and reactive to light, extraocular muscles intact Neck-no lymphadenopathy or thyromegaly, trachea midline Chest-clear to auscultation percussion. No rales wheezing or rhonchi Cardiac-regular rate and rhythm, normal S1 and S2 Abdomen-normal bowel sounds, nontender, no hepatosplenomegaly Extremities-no cyanosis, clubbing, or edema Neuro-cranial nerves II through XII intact, motor and sensory function within normal limits, strength symmetrical , no focal deficits Psych-normal affect, normal mood Results & Data Results & Data Vital Signs (Past 12 Hours) Vital Signs Temp Pulse Pulse Resp BP Pulse Ox O2 Del Method 01/30/23 12:34 Room Air 01/30/23 10:55 36.5 C 87 18 135/83 96 Room Air 01/30/23 09:52 145/82 H 01/30/23 07:58 36.6 C 104 H 16 154/100 H 98 Room Air 01/30/23 07:18 36.6 C 70 18 160/112 H 95 Room Air 01/30/23 03:33 36.4 C L 70 16 161/96 H 95 Room Air, CPAP 01/30/23 02:55 94 H 16 95 FiO2 01/30/23 12:34 01/30/23 10:55 01/30/23 09:52 01/30/23 07:58 01/30/23 07:18 01/30/23 03:33 01/30/23 02:55 21 Laboratory Results 01/30/23 04:11 01/30/23 04:11 PG Care Time/CCT Total # of Minutes Spent Total Time Spent with Patient: Total time spent is greater than 50% in coordination of care (as documented) at patient's floor/unit and/or counseling patient: Coding Level of Care Code 47711 SUB INP/OBS CARE 3/50MIN Diagnoses SOB (shortness of breath) R06.02 NSTEMI (non-ST elevated myocardial infarction) I21.4 CHF (congestive heart failure) I50.9 Acute hyponatremia E87.1 A-fib I48.91 T2DM (type 2 diabetes mellitus) E11.9 CKD (chronic kidney disease), stage III N18.30 Infestation by bed bug B88.8
[2023-01-30] MEDS: HEPARIN SODIUM/DEXTROSE 25,000 UNITS/500 ML BAG IV SCH (16:48)
--- NOTE | 2023-01-30 17:02 | Cardiology Consultation ---
Date of Consultation January 30, 2023 Assessment & Plan (1) NSTEMI (non-ST elevated myocardial infarction): (2) CHF (congestive heart failure): (3) A-fib: (4) Alcohol abuse: (5) CAD (coronary atherosclerotic disease): (6) PAD (peripheral artery disease): (7) Left ventricular dysfunction: Plan 1. Congestive heart failure: This is most likely etiology for his presentation. He described edema and breathing difficulty. BNP was significantly elevated. He seemed to respond well to diuresis although this is not well reflected in his recorded output. He also responded well to CPAP. Lung examination relatively benign at this time. Continue on Lasix monitoring his electrolytes and renal function closely. 2. Cardiomyopathy: Likely mixed ischemic and nonischemic. A good portion likely due to significant alcohol consumption. He has a history of revascularization involving the LAD without significant improvement in his overall LV function. Single-vessel CAD not likely responsible for his overall degree of LV dysfunction. He was prescribed an aggressive medical regimen, but discontinue medications and unfortunately has had poor compliance with medical therapy. His medical regimen has been reinstituted. I reinforced the need for continued medical compliance. His degree of LV dysfunction would qualify him for an ICD. However, I think a. Good compliance with medical therapy and discontinuation of alcohol would be recommended prior to considering a prophylactic ICD. 3. Coronary disease: History of single-vessel intervention to the mid LAD. While he does describe symptoms of chest discomfort, these are somewhat atypical. Will continue aggressive secondary prevention with apixaban and clopidogrel. 4. Elevated troponin: Certainly appears to have an acute event. This may be related to significant hypoxia and heart failure. However, think it is worth re-evaluating his coronary anatomy in order to exclude recurrent or worsening disease. This is especially true given his persistent LV dysfunction. Continue heparin currently. 5. Atrial fibrillation: Permanent on appropriate systemic anticoagulation. Currently being held. Continue metoprolol. 6. Peripheral vascular disease: History of prior intervention to the left popliteal artery. He has significant lower extremity weakness but does not describe overt claudication or rest pain. Certainly poor perfusion of the lower extremities. Will continue on his anti-platelet therapy and anticoagulants. Continue aggressive risk factor modification for both PVD and CAD Unfortunately, I think the patient's care will be compromised by his poor medical compliance and continued alcohol abuse. His social circumstances also appeared to be challenging. History of Present Illness Reason for Consultation: Chest pain, heart failure, cardiomyopathy, elevated troponin Requesting Physician: Corky Attending Physician: Yazan Bruner MD History of Present Illness The patient is a 72-year-old gentleman with an extensive past medical history to include a known cardiomyopathy of likely mixed etiology, congestive heart failure, peripheral artery disease, coronary artery disease, permanent atrial fibrillation and alcohol abuse who was brought to the emergency room by family members for symptoms of progressive edema and breathing difficulty. The patient stated that for perhaps 1 week he has been swollen and having breathing difficulty. He was noted to have stopped all medical therapy over the past 10 days including insulin. He felt that perhaps the medications were interacting with alcohol and actually causing his symptoms. He has been drinking heavily now for several weeks. He also reports episodes of chest pain". The seem to be characterized primarily by a fluttering sensation in the chest. Also a sharp stabbing sensation on occasion. The episodes themselves seem to be fairly brief and fleeting in nature. However, he does take sublingual nitroglycerin quite frequently. He states that he has been taking it nearly every day. Curiously he states this is improved his breathing on occasion. He has difficulty performing nearly any activity. This is due to what he describes as trouble with his legs. He did not report overt discomfort or cramping associated with ambulation. However, he has significant weakness in lower extremities. According to family members he did undergo physical therapy for 4 weeks with little improvement. He claims to be dizzy and lightheaded most of the time. He did not endorse symptoms of presyncope or syncope although he has suffered several falls. When compared to yesterday's breathing seems to be much improved. He specifically noted improved breathing with use of the CPAP machine overnight. He states that his lower extremity edema has nearly resolved. Allergies Allergy/AdvReac Type Severity Reaction Status Date / Time No Known Allergies Allergy Verified 09/21/22 08:12 Home Medications Medication Instructions Recorded Confirmed Type Shower Chair #1 ea 08/19/22 09/21/22 Rx albuterol sulfate 90 mcg/actuation 2 puff inhalation Q4H PRN 10/20/22 01/29/23 Rx aerosol inhaler Wheezing/Dyspnea #8.5 grams insulin glargine 100 unit/mL (3 10 unit (0.1 mL) SC BID #300 mL 10/20/22 01/29/23 Rx mL) subcutaneous pen (Lantus Solostar U-100 Insulin) levothyroxine 25 mcg tablet 25 mcg PO DAILY #30 tabs 10/20/22 01/29/23 Rx apixaban 5 mg tablet (Eliquis) 5 mg PO BID 30 days #60 tabs 10/24/22 01/29/23 Rx atorvastatin 40 mg tablet 40 mg PO DAILY #30 tabs 10/24/22 01/29/23 Rx clopidogrel 75 mg tablet 75 mg PO QAM 30 days #30 tabs 10/24/22 01/29/23 Rx enalapril maleate 10 mg tablet 10 mg PO DAILY 30 days #30 tabs 10/24/22 01/29/23 Rx fluticasone 250 mcg-salmeterol 50 1 inh inhalation BID #60 ea 10/24/22 01/29/23 Rx mcg/dose blistr powdr for inhalation (Advair Diskus) furosemide 20 mg tablet 40 mg PO DAILY #60 tabs 10/24/22 01/29/23 Rx metoprolol succinate 100 mg 100 mg PO DAILY #30 tabs 10/24/22 01/29/23 Rx tablet,extended release 24 hr nitroglycerin 0.4 mg sublingual 0.4 mg sublingual UD PRN chest 10/24/22 01/29/23 Rx tablet (Nitrostat) pain #10 tabs potassium chloride 10 mEq 10 meq PO DAILY #30 tabs 10/25/22 01/29/23 Rx tablet,extended release thiamine HCl (vitamin B1) 100 mg 100 mg PO QAM #30 tabs 10/25/22 01/29/23 Rx tablet dapagliflozin propanediol 5 mg 5 mg PO AMPM 01/29/23 01/29/23 History tablet (Farxiga) gabapentin 100 mg capsule 100 mg PO TID 01/29/23 01/29/23 History peg 3350-electrolytes 236 0 ml PO Q10M 01/29/23 01/29/23 History gram-22.74 gram-6.74 gram-5.86 gram solution (GaviLyte-G) spironolactone 25 mg tablet 0 mg PO DAILY 01/29/23 01/29/23 History Patient History Medical History Acute hyponatremia Acute kidney injury Acute systolic heart failure Alcohol abuse Alcohol abuse Anxiety Atrial fibrillation follows with [facility] CHF (congestive heart failure) COPD (chronic obstructive pulmonary disease) COPD (chronic obstructive pulmonary disease) DM2 (diabetes mellitus, type 2) DVT prophylaxis Elevated troponin Fall Fracture dislocation of right ankle GERD (gastroesophageal reflux disease) History of anesthesia reaction "my heart started to race" - during eye surgery [facility] History of left heart catheterization (LHC) "nonocclusive CAD, normal LV function" History of myocardial infarction History of stroke 09/2021 - no deficits HLD (hyperlipidemia) [place] (hard of hearing) HTN (hypertension) Hypervolemia Increasing shortness of breath Left ventricular dysfunction NICM (nonischemic cardiomyopathy) Noncompliance Osteoarthritis PAD (peripheral artery disease) Poor historian Syndesmotic disruption of right ankle Surgical History History of ankle surgery History of cardiac cath 09/2021 [place] - 1 stent 2008-nonocclussive CAD History of cervical spinal surgery ROM WNL History of colonoscopy History of esophagogastroduodenoscopy (EGD) History of non-cataract eye surgery History of vascular surgery Family History Brother Pancreatic cancer Cancer pancreatic cancer Mother Diabetes Myocardial infarction Sister Diabetes Father Heart disease Myocardial infarction Other No family history of adverse response to anesthesia Denies family history of Ovarian cancer Prostate cancer Breast cancer Colorectal cancer Social History Smoking Status: Former smoker Tobacco Type: Cigarettes Second Hand Exposure: Yes; Do You Dip or Chew Tobacco: No; Tobacco Cessation Education Requested by Patient: No Hx Alcohol Use: Yes Alcohol type: beer Alcohol Intake Frequency: 4 or More x per/Week Hx Substance Use: No Preferred Language: Armenian Communication Ability: Effective Visual Impairment: No Limitations Hearing Ability: Hard of Hearing Logistics Coordinator Required: No Beliefs That Will Affect Care: None marital status: Single Current Living Situation: Alone current occupational status: retired How many Children do You have: 4 Other Information That Helps Us Care for You: No Feels Safe at Home: Yes Childhood Exposure to Second-Hand Smoke: Yes caffeine: Yes (coffee) during the past year weight has: remained stable Dental Care, Regularly: No Physical Activity Frequency: Daily Seatbelt Use: always Sunscreen Use: No Assistive Devices: Cane and Walker Assistive Devices Comment: At home Review of Systems Review of Systems: Per HPI. Physical Exam Physical Exam: The patient is alert and oriented. Mood and affect appeared normal. He answered all questions appropriately. HEENT: Pupils are equal and reactive to light and accommodation. Extraocular movements are intact. The sclerae are anicteric. Neuro: Cranial nerves intact Lungs: Clear to auscultation bilaterally. He has good air movement without use of accessory muscles. No rales wheezes or rhonchi. Cardiac: Heart demonstrates an irregular rate and rhythm. Normal S1 and S2. No murmurs on examination. Pulses: Palpable left radial pulse without right radial pulse. Extremities: There was no evidence of hypoperfusion. There is no cyanosis or clubbing. Mild lower extremity edema. Trophic changes bilaterally. I could not palpate dorsalis pedis or posterior tibial pulses on either extremity. Skin: I did not appreciate any rashes on examination today. Results & Data Vital Signs (Past 12 Hours) Vital Signs Temp Pulse Pulse Resp BP Pulse Ox O2 Del Method 01/30/23 15:14 36.5 C 93 H 20 133/69 91 Room Air 01/30/23 14:54 96 H 01/30/23 12:34 Room Air 01/30/23 10:55 36.5 C 87 18 135/83 96 Room Air 01/30/23 09:52 145/82 H 01/30/23 07:58 36.6 C 104 H 16 154/100 H 98 Room Air 01/30/23 07:18 36.6 C 70 18 160/112 H 95 Room Air Laboratory Results Abnormal Lab Results 01/29/23 01/29/23 01/29/23 19:47 21:21 21:21 WBC RBC Hgb Hct MCV MCH MCHC RDW Std Deviation RDW Coeff of Cole Plt Count MPV Immature Gran % (Auto) Neut % (Auto) Lymph % (Auto) [place] % (Auto) Eos % (Auto) Baso % (Auto) Neut # (Auto) Lymph # (Auto) [place] # (Auto) Eos # (Auto) Baso # (Auto) Immature Gran # (Auto) APTT 36.2 H PTT Ratio 1.3 Sodium Potassium Chloride Carbon Dioxide Anion Gap BUN Creatinine Est Cr Clr Drug Dosing Est GFR ( Amer) Est GFR (Non-Af Amer) BUN/Creatinine Ratio Glucose POC Glucose 276 H Osmolality Calcium Total Bilirubin AST ALT Alkaline Phosphatase Troponin I High Sens 513.0 H* D Total Protein Albumin Globulin Albumin/Globulin Ratio 01/30/23 01/30/23 01/30/23 04:11 04:11 04:11 WBC 4.23 L RBC 4.53 L Hgb 13.9 L Hct 39.8 L MCV 87.9 MCH 30.7 MCHC 34.9 RDW Std Deviation 44.2 RDW Coeff of Cole 14.0 Plt Count 182 MPV 10.9 Immature Gran % (Auto) 0.2 Neut % (Auto) 79.8 Lymph % (Auto) 13.2 [place] % (Auto) 6.6 Eos % (Auto) 0.0 Baso % (Auto) 0.2 Neut # (Auto) 3.37 Lymph # (Auto) 0.56 L [place] # (Auto) 0.28 Eos # (Auto) 0.00 Baso # (Auto) 0.01 Immature Gran # (Auto) 0.01 APTT 46.1 H* PTT Ratio 1.6 Sodium Potassium Chloride Carbon Dioxide Anion Gap BUN Creatinine Est Cr Clr Drug Dosing Est GFR ( Amer) Est GFR (Non-Af Amer) BUN/Creatinine Ratio Glucose POC Glucose Osmolality Calcium Total Bilirubin AST ALT Alkaline Phosphatase Troponin I High Sens 1193.1 H* D Total Protein Albumin Globulin Albumin/Globulin Ratio 01/30/23 01/30/23 01/30/23 04:11 07:17 09:15 WBC RBC Hgb Hct MCV MCH MCHC RDW Std Deviation RDW Coeff of Cole Plt Count MPV Immature Gran % (Auto) Neut % (Auto) Lymph % (Auto) [place] % (Auto) Eos % (Auto) Baso % (Auto) Neut # (Auto) Lymph # (Auto) [place] # (Auto) Eos # (Auto) Baso # (Auto) Immature Gran # (Auto) APTT PTT Ratio Sodium 130 L Potassium 3.3 L D Chloride 93 L Carbon Dioxide 28 Anion Gap 9 BUN 18 Creatinine 1.60 H D Est Cr Clr Drug Dosing 44.6 Est GFR ( Amer) 49.5 Est GFR (Non-Af Amer) 42.7 BUN/Creatinine Ratio 11.3 Glucose 229 H POC Glucose 215 H Osmolality Calcium 8.7 Total Bilirubin 0.8 AST 23 ALT 17 Alkaline Phosphatase 107 H Troponin I High Sens 672.9 H* D Total Protein 7.0 Albumin 3.8 Globulin 3.2 Albumin/Globulin Ratio 1.2 01/30/23 01/30/23 01/30/23 09:15 10:50 10:53 WBC RBC Hgb Hct MCV MCH MCHC RDW Std Deviation RDW Coeff of Cole Plt Count MPV Immature Gran % (Auto) Neut % (Auto) Lymph % (Auto) [place] % (Auto) Eos % (Auto) Baso % (Auto) Neut # (Auto) Lymph # (Auto) [place] # (Auto) Eos # (Auto) Baso # (Auto) Immature Gran # (Auto) APTT PTT Ratio Sodium Potassium Chloride Carbon Dioxide Anion Gap BUN Creatinine Est Cr Clr Drug Dosing Est GFR ( Amer) Est GFR (Non-Af Amer) BUN/Creatinine Ratio Glucose POC Glucose 316 H* 307 H* Osmolality 289 Calcium Total Bilirubin AST ALT Alkaline Phosphatase Troponin I High Sens Total Protein Albumin Globulin Albumin/Globulin Ratio 01/30/23 16:20 WBC RBC Hgb Hct MCV MCH MCHC RDW Std Deviation RDW Coeff of Cole Plt Count MPV Immature Gran % (Auto) Neut % (Auto) Lymph % (Auto) [place] % (Auto) Eos % (Auto) Baso % (Auto) Neut # (Auto) Lymph # (Auto) [place] # (Auto) Eos # (Auto) Baso # (Auto) Immature Gran # (Auto) APTT PTT Ratio Sodium Potassium Chloride Carbon Dioxide Anion Gap BUN Creatinine Est Cr Clr Drug Dosing Est GFR ( Amer) Est GFR (Non-Af Amer) BUN/Creatinine Ratio Glucose POC Glucose 94 Osmolality Calcium Total Bilirubin AST ALT Alkaline Phosphatase Troponin I High Sens Total Protein Albumin Globulin Albumin/Globulin Ratio Diagnostic Findings Cardiac catheterization 10/11/2021: 1. Severe single vessel coronary artery disease -90% mid LAD, 60% ostial D1 2. Normal intracardiac filling pressure 3. Successful PCI of mid LAD with single drug-eluting stent (2.75 x 18 mm Xience; postdilated with 3.5 NC). Echocardiogram performed 01/30/2023: Severely reduced LV systolic function with ejection fraction 25-30%. Regional wall motion abnormalities primarily involving the distal inferior wall. Moderate right atrial dilation. Mild aortic regurgitation. Mild to moderate mitral regurgitation. Mild dilation of the inferior vena cava ECG Additional Comments: Atrial fibrillation with controlled ventricular response PG Care Time/CCT Total # of Minutes Spent Total Time Spent with Patient: Total time spent is greater than 50% in coordination of care (as documented) at patient's floor/unit and/or counseling patient: Coding Level of Care Code 08628 INT INP/OBS CARE 3/75MIN Diagnoses NSTEMI (non-ST elevated myocardial infarction) I21.4 CHF (congestive heart failure) I50.9 A-fib I48.91 Alcohol abuse F10.10 CAD (coronary atherosclerotic disease) I25.10 PAD (peripheral artery disease) I73.9 Left ventricular dysfunction I51.9
[2023-01-30] MEDS: ACETAMINOPHEN 325 MG TAB PO PRN (17:51)
--- NOTE | 2023-01-30 19:27 | Electrocardiogram Report ---
Test Reason : Blood Pressure : / mmHG Vent. Rate : 097 BPM Atrial Rate : 000 BPM P-R Int : 000 ms QRS Dur : 114 ms QT Int : 378 ms P-R-T Axes : 000 203 186 degrees QTc Int : 480 ms possible limb lead reversal Atrial fibrillation with premature ventricular or aberrantly conducted complexes Right superior axis deviation Anterior infarct (cited on or before 03-AUG-2022) Abnormal ECG When compared with ECG of 03-AUG-2022 07:37, Questionable change in QRS axis Nonspecific T wave abnormality has replaced inverted T waves in Lateral leads Confirmed by Ace Duenas ([id number]) on 01/30/2023 7:27:12 PM Referred By: REFERRED SELF Confirmed By:Teo Duenas
--- NOTE | 2023-01-30 19:35 | Electrocardiogram Report ---
Test Reason : Blood Pressure : / mmHG Vent. Rate : 099 BPM Atrial Rate : 094 BPM P-R Int : 000 ms QRS Dur : 114 ms QT Int : 378 ms P-R-T Axes : 000 -69 145 degrees QTc Int : 485 ms Atrial fibrillation with premature ventricular or aberrantly conducted complexes Left anterior fascicular block Poor R wave progression, consider anterior AK vs. lead placement vs. LVH Prolonged QT Abnormal ECG When compared with ECG of 29-JAN-2023 10:27, (unconfirmed) Inverted T waves have replaced nonspecific T wave abnormality in Lateral leads Confirmed by Ace Duenas ([id number]) on 01/30/2023 7:35:03 PM Referred By: REFERRED SELF Confirmed By:Teo Duenas
[2023-01-31] MEDS: NITROGLYCERIN 2% OINTMENT 30GM TUBE EXT SCH ×5 (01:00→23:58)
[2023-01-31] MEDS ORDERED: Nursing to Pharmacy Communication SCH ×2 (05:30→15:15)
[2023-01-31] MEDS: LEVOTHYROXINE SODIUM 25 MCG TABLET PO SCH (05:39)
[2023-01-31] MEDS: INSULIN ASPART PER UNIT CHARGE SC SCH ×4 (05:44→21:10)
[2023-01-31 06:20] LABS: Basophils # (auto) 0.01 K/uL (0-0.2); Basophils % (auto) 0.1 %; Hematocrit (blood only) 39.2 % (42.0-52.0); Hemoglobin 13.8 g/dl (14.0-18.0); Immature Granulocytes # (auto) 0.11 K/uL (0.01-0.20); Immature Granulocytes % (auto) 0.9 %; Lymphocytes # (auto) 1.31 K/uL (1.2-3.4); Lymphocytes % (auto) 10.5 %; Mean Corpuscular Hemoglobin 31.2 pg (25.0-34.0); Mean Corpuscular Hgb Conc 35.2 g/dL (32.0-36.0); Mean Corpuscular Volume 88.7 fL (80.0-100.0); Mean Platelet Volume 10.8 fL (9.4-12.4); Monocytes # (auto) 1.09 K/uL (0.11-0.59); Monocytes % (auto) 8.8 %; Neutrophils % (auto) 79.7 %; Platelet Count 205 K/uL (130-400); RDW Coefficient of Variation 14.2 % (11.5-14.5); RDW Standard Deviation 45.4 fL (36.4-46.3); Red Blood Count 4.42 M/uL (4.70-6.10); White Blood Count 12.42 K/ul (4.8-10.8)
[2023-01-31 06:40] LABS: BUN Creatinine Ratio 17.5 (10-20); Calcium 8.8 mg/dl (8.6-10.3); Creatinine Clr Calc Pharmacy 39.5 ml/min; Est GFR (African American) 47.3 ml/min; Est GFR (Non-African American) 40.9 ml/min; Potassium 3.4 mmol/L (3.5-5.1)
[2023-01-31 07:15] LABS: Partial Thromboplastin Ratio 1.5
[2023-01-31 07:21] LABS: Partial Thromboplastin Time 42.6 Seconds (21.0-31.0)
--- NOTE | 2023-01-31 07:49 | XRay Report ---
SINGLE VIEW CHEST CLINICAL HISTORY: Dyspnea. FINDINGS: An AP, portable, upright chest radiograph is compared to study dated 01/29/2023. The heart is enlarged noting atherosclerotic calcification of the thoracic aorta. The pulmonary vasculature is no ncongested. Chronic interstitial thickening similar to previous. There is mild bibasilar scarring/ate lectasis. Scattered calcified granulomas are observed. No airspace consolidation or large pleural eff usion is identified. No pneumothorax is seen. The skeletal structures are osteopenic. The bony thorax is grossly intact. IMPRESSION: Cardiomegaly with no active disease in the chest. ACT 112: Negative or not required by law. Electronically signed by: Darren Delgadillo M.D. 01/31/2023 7:47 AM
[2023-01-31] MEDS ORDERED: THIAMINE HCL 100 MG in SYRINGE 9 ML IV SCH (09:00)
[2023-01-31] MEDS: LANTUS PER UNIT CHARGE SQ SCH ×2 (09:20→21:11)
[2023-01-31] MEDS: CLOPIDOGREL BISULFATE 75 MG TAB PO SCH (09:24)
[2023-01-31] MEDS: ATORVASTATIN 40 MG TAB PO SCH (09:24)
[2023-01-31] MEDS: DOXYCYCLINE HYCLATE 100 MG CAP PO SCH ×2 (09:25→21:11)
[2023-01-31] MEDS: ENALAPRIL MALEATE 10 MG TAB PO SCH (09:25)
[2023-01-31] MEDS: FOLIC ACID 1 MG TAB PO SCH (09:26)
[2023-01-31] MEDS: FLUTICASONE/VILANTEROL 100/25MCG 14 PUFFS/INHALER INH SCH (09:26)
[2023-01-31] MEDS: METOPROLOL SUCC 50MG EXT REL TAB PO SCH (09:26)
[2023-01-31] MEDS: PANTOprazole 40 MG TAB PO SCH (09:27)
[2023-01-31] MEDS: POTASSIUM CHLORIDE CRTAB 20 MEQ TABCR PO SCH ×2 (09:27→21:12)
[2023-01-31] MEDS: SPIRONOLACTONE 25 MG TAB PO SCH (09:28)
[2023-01-31] MEDS: predniSONE 20 MG TAB PO SCH (09:28)
[2023-01-31] MEDS ORDERED: POTASSIUM CHLORIDE CRTAB 20 MEQ TABCR PO STA (09:43)
[2023-01-31] MEDS: FUROSEMIDE 40 MG TAB PO SCH ×2 (10:05→17:01)
--- NOTE | 2023-01-31 11:35 | Cardiology Progress Note ---
Date of Service January 31, 2023 Assessment & Plan (1) NSTEMI (non-ST elevated myocardial infarction): (2) CHF (congestive heart failure): (3) A-fib: (4) Alcohol abuse: (5) CAD (coronary atherosclerotic disease): (6) PAD (peripheral artery disease): (7) Left ventricular dysfunction: Plan 1. Congestive heart failure: This seems to be resolved. Slight increase in creatinine with aggressive diuresis. Lasix switch to oral today which hopefully will improve renal function. 2. Cardiomyopathy: Likely mixed ischemic and nonischemic. Restarted on enalapril, metoprolol succinate and spironolactone. Previously on an SGLT 2 inhibitor which we can reinitiate prior or at the time of discharge. His degree of LV dysfunction would qualify him for an ICD. However, I think a. Good compliance with medical therapy and discontinuation of alcohol would be recommended prior to considering a prophylactic ICD. 3. Coronary disease: History of single-vessel intervention to the mid LAD. While he does describe symptoms of chest discomfort, these are somewhat atypical. Will continue aggressive secondary prevention with apixaban and clopidogrel. 4. Elevated troponin: Certainly appears to have an acute event. He has a history of PCI to the LAD. Also left main disease. Recommend repeat catheterization. Hopefully his renal indices will improve. I think we will defer the procedure until tomorrow if possible. Will continue heparinization at this time. 5. Atrial fibrillation: Permanent on appropriate systemic anticoagulation. Currently being held. Continue metoprolol. Apixaban being held. Currently on heparin and Plavix. 6. Peripheral vascular disease: No overt symptoms. Minimally ambulatory in the hospital. Unfortunately, I think the patient's care will be compromised by his poor medical compliance and continued alcohol abuse. His social circumstances also appeared to be challenging. Admission and Anticipated Discharge Date Admission Date: January 29, 2023 Subjective This morning patient claims to be feeling well. He denies breathing difficulty. His breathing has returned to baseline in his edema peers have resolved. He is anticipating a cardiac catheterization. He has been minimally ambulatory by direction. He has set up in a chair. He denies significant dizziness or lightheadedness. No recurrent chest pain. Review of Systems Review of Systems: Per HPI Physical Exam Physical Exam: The patient is alert and oriented. Mood and affect appeared normal. He answered all questions appropriately. HEENT: Pupils are equal and reactive to light and accommodation. Extraocular movements are intact. The sclerae are anicteric. Neuro: Cranial nerves intact Lungs: Clear to auscultation bilaterally. He has good air movement without use of accessory muscles. No rales wheezes or rhonchi. Cardiac: Heart demonstrates an irregular rate and rhythm. Normal S1 and S2. No murmurs on examination. Pulses: Palpable left radial pulse without right radial pulse. Extremities: There was no evidence of hypoperfusion. There is no cyanosis or clubbing. Mild lower extremity edema. Trophic changes bilaterally. I could not palpate dorsalis pedis or posterior tibial pulses on either extremity. Skin: I did not appreciate any rashes on examination today. Results & Data Vital Signs (Past 12 Hours) Vital Signs Temp Pulse Resp BP BP Pulse Ox O2 Del Method 01/31/23 07:08 36.5 C 95 H 18 133/89 94 Room Air 01/31/23 05:35 156/96 H 01/31/23 04:02 176/85 H 01/31/23 03:36 36.4 C L 88 18 187/98 H 94 Room Air Laboratory Results Abnormal Lab Results 01/30/23 01/30/23 01/31/23 16:20 20:00 05:29 WBC RBC Hgb Hct MCV MCH MCHC RDW Std Deviation RDW Coeff of Cole Plt Count MPV Immature Gran % (Auto) Neut % (Auto) Lymph % (Auto) [place] % (Auto) Eos % (Auto) Baso % (Auto) Neut # (Auto) Lymph # (Auto) [place] # (Auto) Eos # (Auto) Baso # (Auto) Immature Gran # (Auto) APTT PTT Ratio Sodium Potassium Chloride Carbon Dioxide Anion Gap BUN Creatinine Est Cr Clr Drug Dosing Est GFR ( Amer) Est GFR (Non-Af Amer) BUN/Creatinine Ratio Glucose POC Glucose 94 108 H 123 H Calcium 01/31/23 01/31/23 01/31/23 05:41 05:41 05:41 WBC 12.42 H RBC 4.42 L Hgb 13.8 L Hct 39.2 L MCV 88.7 MCH 31.2 MCHC 35.2 RDW Std Deviation 45.4 RDW Coeff of Cole 14.2 Plt Count 205 MPV 10.8 Immature Gran % (Auto) 0.9 Neut % (Auto) 79.7 Lymph % (Auto) 10.5 [place] % (Auto) 8.8 Eos % (Auto) 0.0 Baso % (Auto) 0.1 Neut # (Auto) 9.90 H Lymph # (Auto) 1.31 [place] # (Auto) 1.09 H Eos # (Auto) 0.00 Baso # (Auto) 0.01 Immature Gran # (Auto) 0.11 APTT 42.6 H* PTT Ratio 1.5 Sodium 133 L Potassium 3.4 L Chloride 94 L Carbon Dioxide 30 Anion Gap 9 BUN 29 H Creatinine 1.66 H Est Cr Clr Drug Dosing 39.5 Est GFR ( Amer) 47.3 Est GFR (Non-Af Amer) 40.9 BUN/Creatinine Ratio 17.5 Glucose 105 H POC Glucose Calcium 8.8 01/31/23 09:22 WBC RBC Hgb Hct MCV MCH MCHC RDW Std Deviation RDW Coeff of Cole Plt Count MPV Immature Gran % (Auto) Neut % (Auto) Lymph % (Auto) [place] % (Auto) Eos % (Auto) Baso % (Auto) Neut # (Auto) Lymph # (Auto) [place] # (Auto) Eos # (Auto) Baso # (Auto) Immature Gran # (Auto) APTT PTT Ratio Sodium Potassium Chloride Carbon Dioxide Anion Gap BUN Creatinine Est Cr Clr Drug Dosing Est GFR ( Amer) Est GFR (Non-Af Amer) BUN/Creatinine Ratio Glucose POC Glucose 113 H Calcium Diagnostic Findings Cardiac catheterization 10/11/2021: 1. Severe single vessel coronary artery disease -90% mid LAD, 60% ostial D1 2. Normal intracardiac filling pressure 3. Successful PCI of mid LAD with single drug-eluting stent (2.75 x 18 mm Xience; postdilated with 3.5 NC). Echocardiogram performed 01/30/2023: Severely reduced LV systolic function with ejection fraction 25-30%. Regional wall motion abnormalities primarily involving the distal inferior wall. Moderate right atrial dilation. Mild aortic regurgitation. Mild to moderate mitral regurgitation. Mild dilation of the inferior vena cava ECG Additional Comments: Atrial fibrillation with controlled ventricular response PG Care Time/CCT Total # of Minutes Spent Total Time Spent with Patient: Total time spent is greater than 50% in coordination of care (as documented) at patient's floor/unit and/or counseling patient: Coding Level of Care Code 46151 SUB INP/OBS CARE MIN Diagnoses NSTEMI (non-ST elevated myocardial infarction) I21.4 CHF (congestive heart failure) I50.9 A-fib I48.91 Alcohol abuse F10.10 CAD (coronary atherosclerotic disease) I25.10 PAD (peripheral artery disease) I73.9 Left ventricular dysfunction I51.9
[2023-01-31] MEDS ORDERED: GABAPENTIN 400 MG CAP PO SCH (12:00)
--- NOTE | 2023-01-31 14:25 | Hospitalist Progress Note ---
Date of Service January 31, 2023 Assessment & Plan (1) SOB (shortness of breath): Plan: Now resolved. He is on room air. This is a combination of acute on chronic systolic CHF and suspect NSTEMI. I suspect he also has a degree of exacerbation of COPD. (2) NSTEMI (non-ST elevated myocardial infarction): Plan: Significant troponin elevation since admission. Repeat limited cardiac echo report noted. Cardiology consultation did and recommendations appreciated. He is now on a heparin drip. Hopeful left heart catheterization tomorrow, February 01 (3) CHF (congestive heart failure): Plan: Acute on chronic systolic CHF. Resolved with parenteral Lasix diuresis. Lasix switched to oral dosing today, January 31 (4) Acute hyponatremia: Plan: Mild. Serial labs. Asymptomatic (5) A-fib: Plan: Chronic. Currently on heparin drip. Eliquis on hold. Rate controlled with current medication management (6) T2DM (type 2 diabetes mellitus): Plan: ADA diet. Sliding scale coverage. Continue current medical management (7) CKD (chronic kidney disease), stage III: Plan: Monitor intake and output. Serial labs. Creatinine bump noted with diuresis. We will follow (8) Infestation by bed bug: Plan: Contact precautions Plan Hopeful discharge to home later this week Admission and Anticipated Discharge Date Admission Date: January 29, 2023 Subjective Alert and oriented. No distress. Chest x-ray done today, January 31, reveals resolution of CHF. Parenteral Lasix switched to oral dosing. Creatinine remains at 1.6. Potassium slightly low at 3.4. Replacement ordered. Cardiology entry noted. Hopeful heart catheterization tomorrow, February 01. Continue heparin drip for now. Review of Systems Review of Systems: Constitutional-no fever or chills ENT-no blurred vision, no double vision, no epistaxis, no sore throat Respiratory-no cough, no wheezing, no shortness of breath Cardiac-no palpitations, no chest pain, no syncope GI-no nausea, vomiting, diarrhea, melena, hematochezia -no urinary retention, no urinary incontinence, no dysuria, no hematuria Musculoskeletal-no joint pain, no muscle tenderness Skin-no bruising, no rashes, no pruritus Neuro-no isolated weakness, no paresthesia, no weakness Psych-no depression, no anxiety Physical Exam Physical Exam: General-alert and oriented x3, no fevers, no chills HEENT-head atraumatic and normocephalic, pupils equal and reactive to light, extraocular muscles intact Neck-no lymphadenopathy or thyromegaly, trachea midline Chest-clear to auscultation percussion. No rales wheezing or rhonchi Cardiac-regular rate and rhythm, normal S1 and S2 Abdomen-normal bowel sounds, nontender, no hepatosplenomegaly Extremities-no cyanosis, clubbing, or edema Neuro-cranial nerves II through XII intact, motor and sensory function within normal limits, strength symmetrical , no focal deficits Psych-normal affect, normal mood Results & Data Results & Data Vital Signs (Past 12 Hours) Vital Signs Temp Pulse Resp BP BP Pulse Ox O2 Del Method 01/31/23 12:04 36.4 C L 50 L 18 120/70 94 Room Air 01/31/23 07:08 36.5 C 95 H 18 133/89 94 Room Air 01/31/23 05:35 156/96 H 01/31/23 04:02 176/85 H 01/31/23 03:36 36.4 C L 88 18 187/98 H 94 Room Air Laboratory Results 01/31/23 05:41 01/31/23 05:41 PG Care Time/CCT Total # of Minutes Spent Total Time Spent with Patient: Total time spent is greater than 50% in coordination of care (as documented) at patient's floor/unit and/or counseling patient: Coding Level of Care Code 75729 SUB INP/OBS CARE 3/50MIN Diagnoses SOB (shortness of breath) R06.02 NSTEMI (non-ST elevated myocardial infarction) I21.4 CHF (congestive heart failure) I50.9 Acute hyponatremia E87.1 A-fib I48.91 T2DM (type 2 diabetes mellitus) E11.9 CKD (chronic kidney disease), stage III N18.30 Infestation by bed bug B88.8
[2023-01-31] MEDS: HEPARIN SODIUM/DEXTROSE 25,000 UNITS/500 ML BAG IV SCH (17:00)
[2023-02-01] MEDS: NITROGLYCERIN 2% OINTMENT 30GM TUBE EXT SCH ×3 (06:26→17:08)
[2023-02-01] MEDS: LEVOTHYROXINE SODIUM 25 MCG TABLET PO SCH (06:26)
[2023-02-01 06:50] LABS: Basophils # (auto) 0.01 K/uL (0-0.2); Basophils % (auto) 0.1 %; Eosinophils # (auto) 0.05 K/uL (0-0.50); Eosinophils % (auto) 0.6 %; Hematocrit (blood only) 38.4 % (42.0-52.0); Hemoglobin 13.4 g/dl (14.0-18.0); Immature Granulocytes # (auto) 0.05 K/uL (0.01-0.20); Immature Granulocytes % (auto) 0.6 %; Lymphocytes # (auto) 1.67 K/uL (1.2-3.4); Lymphocytes % (auto) 19.2 %; Mean Corpuscular Hemoglobin 30.7 pg (25.0-34.0); Mean Corpuscular Hgb Conc 34.9 g/dL (32.0-36.0); Mean Corpuscular Volume 87.9 fL (80.0-100.0); Mean Platelet Volume 11.1 fL (9.4-12.4); Monocytes # (auto) 0.94 K/uL (0.11-0.59); Monocytes % (auto) 10.8 %; Neutrophils # (auto) 5.98 K/uL (1.40-6.50); Neutrophils % (auto) 68.7 %; Platelet Count 206 K/uL (130-400); RDW Coefficient of Variation 14.4 % (11.5-14.5); RDW Standard Deviation 45.4 fL (36.4-46.3); Red Blood Count 4.37 M/uL (4.70-6.10)
[2023-02-01 07:03] LABS: BUN Creatinine Ratio 18.6 (10-20); Calcium 8.7 mg/dl (8.6-10.3); Creatinine Clr Calc Pharmacy 32.9 ml/min; Est GFR (Non-African American) 32.8 ml/min; Potassium 3.9 mmol/L (3.5-5.1)
[2023-02-01] MEDS ORDERED: Nursing to Pharmacy Communication SCH (07:30)
[2023-02-01 07:42] LABS: Partial Thromboplastin Ratio 1.8
[2023-02-01 07:44] LABS: Partial Thromboplastin Time 51.8 Seconds (21.0-31.0)
[2023-02-01] MEDS: INSULIN ASPART PER UNIT CHARGE SC SCH ×5 (08:01→20:37)
[2023-02-01] MEDS: DOXYCYCLINE HYCLATE 100 MG CAP PO SCH ×2 (08:02→20:36)
[2023-02-01] MEDS: ATORVASTATIN 40 MG TAB PO SCH (08:02)
[2023-02-01] MEDS: predniSONE 20 MG TAB PO SCH (08:02)
[2023-02-01] MEDS: ENALAPRIL MALEATE 10 MG TAB PO SCH (08:03)
[2023-02-01] MEDS: FOLIC ACID 1 MG TAB PO SCH (08:03)
[2023-02-01] MEDS: PANTOprazole 40 MG TAB PO SCH (08:03)
[2023-02-01] MEDS: THIAMINE HCL 100 MG TAB PO SCH (08:03)
[2023-02-01] MEDS: POTASSIUM CHLORIDE CRTAB 20 MEQ TABCR PO SCH ×2 (08:04→20:37)
[2023-02-01] MEDS: SODIUM CHLORIDE 0.9% 1000ML 1,000 ML IV SCH ×2 (08:07→19:17)
[2023-02-01] MEDS: FLUTICASONE/VILANTEROL 100/25MCG 14 PUFFS/INHALER INH SCH (08:08)
[2023-02-01] MEDS: LANTUS PER UNIT CHARGE SQ SCH ×2 (08:23→20:36)
[2023-02-01] MEDS: METOPROLOL SUCC 50MG EXT REL TAB PO SCH (10:25)
[2023-02-01] MEDS: CLOPIDOGREL BISULFATE 75 MG TAB PO SCH (10:25)
[2023-02-01] MEDS: SPIRONOLACTONE 25 MG TAB PO SCH (10:25)
--- NOTE | 2023-02-01 10:30 | Ultrasound Report ---
RENAL ULTRASOUND HISTORY: renal failure COMPARISON: Abdomen and pelvis CT 08/02/2022. FINDINGS: Right kidney: 9.1 cm. No hydronephrosis. Normal corticomedullary differentiation. Moderate cortical t hinning, unchanged. Left kidney: 11.8 cm. No hydronephrosis. Normal corticomedullary differentiation and cortical thickne ss. Bladder: Bladder wall thickening, unchanged. This is most pronounced anteriorly which measures up to 8 mm in thickness. The bilateral ureteral jets are identified. IMPRESSION: 1. Mildly atrophic right kidney, unchanged. 2. Normal left kidney. 3. Anterior bladder wall thickening, unchanged. This could be chronic. Consider follow-up urinalysis and/or cystoscopy for further evaluation. ACT 112: Negative or not required by law. Electronically signed by: Duc Reich M.D. 02/01/2023 10:28 AM
[2023-02-01] MEDS ORDERED: GABAPENTIN 100 MG CAP PO SCH (12:00)
--- NOTE | 2023-02-01 14:29 | Hospitalist Progress Note ---
Date of Service February 01, 2023 Assessment & Plan (1) SOB (shortness of breath): Plan: Now resolved. He is on room air. This is a combination of acute on chronic systolic CHF and suspect NSTEMI. I suspect he also has a degree of exacerbation of COPD. (2) NSTEMI (non-ST elevated myocardial infarction): Plan: Significant troponin elevation since admission. Repeat limited cardiac echo report noted. Cardiology consultation did and recommendations appreciated. Heparin drip discontinued today, February 01. Left heart catheterization will be done as an outpatient on a later date once the renal function improves. (3) CHF (congestive heart failure): Plan: Acute on chronic systolic CHF. Resolved with parenteral Lasix diuresis. Lasix switched to oral dosing on January 31 and discontinued today, February 01, due to worsening renal function (4) Acute hyponatremia: Plan: Mild. Serial labs. Asymptomatic (5) A-fib: Plan: Chronic. Heparin drip has been discontinued. Eliquis has been restarted. Rate controlled with current medication management (6) T2DM (type 2 diabetes mellitus): Plan: ADA diet. Sliding scale coverage. Continue current medical management (7) CKD (chronic kidney disease), stage III: Plan: Monitor intake and output. Serial labs. Creatinine continues to rise. All diuretics have been discontinued. IV fluids started today, February 01. (8) Infestation by bed bug: Plan: Contact precautions have now been discontinued Plan Hopefully home tomorrow, February 02, if creatinine improves Admission and Anticipated Discharge Date Admission Date: January 29, 2023 Subjective Alert and oriented. No distress. Creatinine has risen to 1.9. Judicious IV fluid replacement has begun. Heparin drip has been discontinued per cardiology recommendations. Heart catheterization will be done at a later date once the creatinine improves. Potassium corrected to 3.9. All diuretics have been discontinued. Renal ultrasound ordered and pending. Hopefully he can go home tomorrow, February 02, if the creatinine has improved Review of Systems Review of Systems: Constitutional-no fever or chills ENT-no blurred vision, no double vision, no epistaxis, no sore throat Respiratory-no cough, no wheezing, no shortness of breath Cardiac-no palpitations, no chest pain, no syncope GI-no nausea, vomiting, diarrhea, melena, hematochezia -no urinary retention, no urinary incontinence, no dysuria, no hematuria Musculoskeletal-no joint pain, no muscle tenderness Skin-no bruising, no rashes, no pruritus Neuro-no isolated weakness, no paresthesia, no weakness Psych-no depression, no anxiety Physical Exam Physical Exam: General-alert and oriented x3, no fevers, no chills HEENT-head atraumatic and normocephalic, pupils equal and reactive to light, extraocular muscles intact Neck-no lymphadenopathy or thyromegaly, trachea midline Chest-clear to auscultation percussion. No rales wheezing or rhonchi Cardiac-regular rate and rhythm, normal S1 and S2 Abdomen-normal bowel sounds, nontender, no hepatosplenomegaly Extremities-no cyanosis, clubbing, or edema Neuro-cranial nerves II through XII intact, motor and sensory function within normal limits, strength symmetrical , no focal deficits Psych-normal affect, normal mood Results & Data Results & Data Vital Signs (Past 12 Hours) Vital Signs Temp Pulse Pulse Resp BP BP Pulse Ox 02/01/23 12:21 36.3 C L 77 18 116/71 96 02/01/23 06:00 76 02/01/23 07:58 36.3 C L 94 H 18 135/98 97 02/01/23 04:03 36.5 C 81 18 126/81 97 O2 Del Method 02/01/23 12:21 Room Air 02/01/23 06:00 02/01/23 07:58 Room Air 02/01/23 04:03 Room Air Laboratory Results 02/01/23 06:06 02/01/23 06:06 PG Care Time/CCT Total # of Minutes Spent Total Time Spent with Patient: Total time spent is greater than 50% in coordination of care (as documented) at patient's floor/unit and/or counseling patient: Coding Level of Care Code 05957 SUB INP/OBS CARE 3/50MIN Diagnoses SOB (shortness of breath) R06.02 NSTEMI (non-ST elevated myocardial infarction) I21.4 CHF (congestive heart failure) I50.9 Acute hyponatremia E87.1 A-fib I48.91 T2DM (type 2 diabetes mellitus) E11.9 CKD (chronic kidney disease), stage III N18.30 Infestation by bed bug B88.8
[2023-02-01] MEDS: APIXABAN 5 MG TABLET PO SCH (20:35)
[2023-02-01] MEDS: GABAPENTIN 100 MG CAP PO SCH (20:36)
[2023-02-02] MEDS: NITROGLYCERIN 2% OINTMENT 30GM TUBE EXT SCH ×3 (00:48→12:40)
[2023-02-02] MEDS: LEVOTHYROXINE SODIUM 25 MCG TABLET PO SCH (06:12)
[2023-02-02 06:55] LABS: BUN Creatinine Ratio 21.7 (10-20); Calcium 8.7 mg/dl (8.6-10.3); Creatinine Clr Calc Pharmacy 43.1 ml/min; Est GFR (African American) 52.7 ml/min; Est GFR (Non-African American) 45.4 ml/min; Potassium 4.1 mmol/L (3.5-5.1)
[2023-02-02] MEDS: SODIUM CHLORIDE 0.9% 1000ML 1,000 ML IV SCH (07:55)
[2023-02-02] MEDS: DOXYCYCLINE HYCLATE 100 MG CAP PO SCH (07:58)
[2023-02-02] MEDS: SPIRONOLACTONE 25 MG TAB PO SCH (07:58)
[2023-02-02] MEDS: CLOPIDOGREL BISULFATE 75 MG TAB PO SCH (07:58)
[2023-02-02] MEDS: APIXABAN 5 MG TABLET PO SCH (07:58)
[2023-02-02] MEDS: GABAPENTIN 100 MG CAP PO SCH ×2 (07:58→13:18)
[2023-02-02] MEDS: THIAMINE HCL 100 MG TAB PO SCH (07:59)
[2023-02-02] MEDS: POTASSIUM CHLORIDE CRTAB 20 MEQ TABCR PO SCH (07:59)
[2023-02-02] MEDS: ATORVASTATIN 40 MG TAB PO SCH (07:59)
[2023-02-02] MEDS: METOPROLOL SUCC 50MG EXT REL TAB PO SCH (07:59)
[2023-02-02] MEDS: ENALAPRIL MALEATE 10 MG TAB PO SCH (07:59)
[2023-02-02] MEDS: PANTOprazole 40 MG TAB PO SCH (07:59)
[2023-02-02] MEDS: predniSONE 20 MG TAB PO SCH (08:00)
[2023-02-02] MEDS: FOLIC ACID 1 MG TAB PO SCH (08:00)
[2023-02-02] MEDS: FLUTICASONE/VILANTEROL 100/25MCG 14 PUFFS/INHALER INH SCH (08:00)
[2023-02-02] MEDS: INSULIN ASPART PER UNIT CHARGE SC SCH ×2 (08:55→12:48)
[2023-02-02] MEDS: LANTUS PER UNIT CHARGE SQ SCH (08:55)
--- NOTE | 2023-02-02 11:58 | Discharge Summary ---
Date of Service February 02, 2023 Admission HPI Per Admitting Provider Travis is a 72-year-old male with a past medical history of type II DM, paroxysmal SVT, CKD, paroxysmal A-fib, heart failure with reduced ejection fraction, GERD, hyperlipidemia, COPD who presents emergency department with 1 week of lower extremity swelling, weight gain, increased work of breathing, dyspnea on exertion with develop of 1 day of substernal chest pain for which she has been taking nitro routinely. Travis is seen at the bedside with his daughter in law Henna. Travis reports he has been short of breath and with stomach upset for 1 week Taking nitro 'like candy' in the last few days. +swelling in his legs x5-6 days. Gets much better with elevation normally Has had some bright red blood in BMs intermittently. Mother had colon cancer, pt has been avoiding a colonoscopy due to fear of this. FHX of [place]. Pt has a hx of heart failure with cardia stents in addition to stents in his left leg No chest pain at admission +history fo DM, BSG usually 130s at home. Doesn't take his insulin because he has a very poor appetite. Takes 10u lantus BID but stopped taking because he say the news saying there were lawsuits saying insulin can make people sick No tobacco product use ETOH: Zeferino armendariz drank a 15 pack. 'I do good when I go home" Per DIL does well at first with nursing services, the minute they leave and the second his friend comes over he starts drinking again. Sister and family have been borderline e stranged due to ETOH and relapse in the past. He expresses a desire to stop drinking. "I have a hard time wanting to, but I have". Denies history of seizures/withdrawal. Has been drinking ~15-36 beers per day at least for the last month, sometimes more. Medical History: Reviewed Medications: Reviewed Surgical History: Reviewed Family history: Reviewed Allergies: Reviewed Social History: No tobacco use. Code Status: Full Code Principal Diagnosis NSTEMI, acute on chronic kidney disease, acute on chronic systolic CHF Discharge Exam General-alert and oriented x3, no fevers, no chills HEENT-head atraumatic and normocephalic, pupils equal and reactive to light, extraocular muscles intact Neck-no lymphadenopathy or thyromegaly, trachea midline Chest-clear to auscultation percussion. No rales wheezing or rhonchi Cardiac-regular rate and rhythm, normal S1 and S2 Abdomen-normal bowel sounds, nontender, no hepatosplenomegaly Extremities-no cyanosis, clubbing, or edema Neuro-cranial nerves II through XII intact, motor and sensory function within normal limits, strength symmetrical , no focal deficits Psych-normal affect, normal mood Discharge Data Allergies Allergy/AdvReac Type Severity Reaction Status Date / Time No Known Allergies Allergy Verified 09/21/22 08:12 Consultations 01/29/23 11:49 ED Decision to Admit Stat 01/29/23 12:31 Consult Cardiology Routine Ordered Studies 02/01/23 07:46 US renal/blad retro comp Urgent Hospital Course (1) SOB (shortness of breath): Now resolved. He is on room air. This is a combination of acute on chronic systolic CHF and suspect NSTEMI. I suspect he also has a degree of exacerbation of COPD. (2) NSTEMI (non-ST elevated myocardial infarction): Significant troponin elevation since admission. Repeat limited cardiac echo report noted. Cardiology consultation did and recommendations appreciated. Heparin drip discontinued today, February 01. Left heart catheterization will be done as an outpatient on a later date once the renal function improves. (3) CHF (congestive heart failure): Acute on chronic systolic CHF. Resolved with parenteral Lasix diuresis. Lasix switched to oral dosing on January 31 and discontinued today, February 01, due to worsening renal function (4) Acute hyponatremia: Mild. Serial labs. Asymptomatic (5) A-fib: Chronic. Heparin drip has been discontinued. Eliquis has been restarted. Rate controlled with current medication management (6) T2DM (type 2 diabetes mellitus): ADA diet. Sliding scale coverage. Continue current medical management (7) CKD (chronic kidney disease), stage III: Monitor intake and output. Serial labs. Creatinine is improving now with IV fluids. Creatinine will eventually return to baseline. His usual oral diuretic therapy will be restarted at discharge. (8) Infestation by bed bug: Contact precautions have now been discontinued Plan Home today, February 02 Total Time Total Time Spent Total Time Spent (In Minutes): 45 minutes Discharge Plan Discharge Items Patient Disposition: Home - Self-Care Reason For Visit: SHORTNESS OF BREATH,COPD,?CHF Discharge Diagnosis: NST elevation [place], acute on chronic systolic CHF, acute on chronic kidney disease Activity: Resume your previous activity Non-emergency contact: Primary Care Provider and Impregnation Operator Call non-emergency contact if: your symptoms worsen Follow-up/Referrals: Janell Aldana DO [Primary Care Provider] - Diet: Carb Consistent or DM2 and Heart Healthy Addtl Attending Provider Instructions: Follow-up with cardiology within 2 weeks for discussion regarding repeat heart catheterization. Use 1 tablet nitroglycerin under your tongue every 5 minutes up to 3 tablets total for any recurrent chest pain. If chest discomfort does not resolve after 3 tablets( 1 tablet every 5 minutes), then come back to the ED for evaluation Pending Studies at Discharge: No Stand-Alone Forms: My [employer], Smoking Cessation Medications and DC Order Prescriptions: New nitroglycerin [Nitrostat] 0.4 mg Tablet, Sublingual 0.4 mg sublingual Q5M PRN (Reason: chest pain) Qty: 25 0RF Continued (DME) Shower Chair Misc See Rx Instructions .Route Qty: 1 0RF Rx Instructions: As directed. albuterol sulfate 90 mcg/actuation HFA aerosol inhaler 2 puff INHALATION Q4H PRN (Reason: Wheezing/Dyspnea) Qty: 8.5 3RF insulin glargine [Lantus Solostar U-100 Insulin] 100 unit/mL (3 mL) insulin pen 10 unit SC BID Qty: 300 2RF levothyroxine 25 mcg tablet 25 mcg PO DAILY Qty: 30 2RF fluticasone propion-salmeterol [Advair Diskus] 250-50 mcg/dose blister with device 1 inh INHALATION BID Qty: 60 3RF atorvastatin 40 mg tablet 40 mg PO DAILY Qty: 30 5RF clopidogrel 75 mg tablet 75 mg PO QAM 30 Days Qty: 30 5RF Eliquis 5 mg tablet 5 mg PO BID 30 Days Qty: 60 5RF enalapril maleate 10 mg tablet 10 mg PO DAILY 30 Days Qty: 30 5RF furosemide 20 mg tablet 40 mg PO DAILY Qty: 60 5RF Rx Instructions: According to Dr starks on 10/04/21 his lasix was increased to bid metoprolol succinate 100 mg tablet extended release 24 hr 100 mg PO DAILY Qty: 30 5RF nitroglycerin [Nitrostat] 0.4 mg tablet, sublingual 0.4 mg sublingual UD PRN (Reason: chest pain) Qty: 10 0RF Rx Instructions: If pain is not relieved or worsens 3 to 5 minutes after 1 dose, seek immediate emergency medical attention potassium chloride 10 mEq tablet extended release 10 meq PO DAILY Qty: 30 5RF thiamine HCl (vitamin B1) 100 mg tablet 100 mg PO QAM Qty: 30 5RF gabapentin 100 mg capsule 100 mg PO TID spironolactone 25 mg tablet 0 mg PO DAILY Rx Instructions: Per daughter daughter she isnt sure if pt still takes this medication. Was filled in October 2022 peg 3350-electrolytes [GaviLyte-G] [id number] -5.86 gram recon soln 0 ml PO Q10M Rx Instructions: per daughter he uses once a day? until fecal effluent is clear Farxiga 5 mg tablet 5 mg PO AMPM Discharge Orders: Discharge Order- CHF (Routine); Ordered 02/02/23 Ordered By: Yazan Bruner Admission Data Admit Date/Time: 01/29/23 12:19 Attending Provider: Yazan Bruner Admit Provider: Jerry Fried Primary Care Provider: Janell Aldana Other Providers: Jerry Fried ; Ace Duenas Coding Level of Care Code 02197 INP/OBS DISCH >30 MIN Diagnoses SOB (shortness of breath) R06.02 NSTEMI (non-ST elevated myocardial infarction) I21.4 CHF (congestive heart failure) I50.9 Acute hyponatremia E87.1 A-fib I48.91 T2DM (type 2 diabetes mellitus) E11.9 CKD (chronic kidney disease), stage III N18.30 Infestation by bed bug B88.8
== END 2023-02-02 13:58 | disposition home or self-care (01) | DRG 280 ==
LOC: ED 10:03 → 4W 12:19 → SUATTDRO 12:19 → 4W 16:07

== ENCOUNTER 2023-05-04 22:00 | Inpatient (IN) ==
[2023-05-04 23:47] LABS: BUN Creatinine Ratio 26.4 (10-20); Calcium 8.4 mg/dl (8.6-10.3); Creatinine Clr Calc Pharmacy 48.9 ml/min; Est GFR (African American) 55.8 ml/min; Est GFR (Non-African American) 48.2 ml/min; Potassium 3.4 mmol/L (3.5-5.1)
[2023-05-05 00:12] LABS: Albumin Globulin Ratio 1.2 (0.9-2); Albumin Level 3.5 gm/dl (3.4-5.0); Bilirubin,Total 2.1 mg/dl (0.2-1.0); Total Protein 6.5 gm/dl (6.0-8.3); Troponin I High Sensitivity 77.8 pg/ml (0-20)
--- NOTE | 2023-05-05 00:31 | Emergency Department Note ---
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 Patient states chest pain woke him up from sleep, with central slightly left-sided, otherwise nonradiating. He states he did have accompanying nausea, shortness of breath, and lightheadedness. He states he has had similar episodes and does have a history of heart disease. He states he has 2 stents, and follows with Dr. Bone of cardiology. He states no recent change in medication. Patient states he took a nitro that he has at home and his pain resolved. He states his family was concerned and insisted he come in for evaluation. Patient states he is also previously had a stroke which left him with difficulty walking" poor perfusion in his legs". He states his last fall was 2 weeks ago, he does not use any ambulatory assist device. He denies any recent fevers, chills, cough or cold symptoms. He states he has intermittently had swelling in his legs. No recurrent pain since taking the nitro. Patient was given aspirin by EMS. PAST MEDICAL HISTORY:See Below PAST SURGICAL HISTORY:See Below FAMILY HISTORY:See Below SOCIAL HISTORY:See Below HOME MEDICATIONS:See Below ALLERGIES:See Below VITALS:See Below PHYSICAL EXAMINATION: GENERAL: alert, unwell appearing, well nourished, no distress, non-toxic EYE EXAM: normal conjunctiva, PERRL and EOM's grossly intact OROPHARYNX: no exudate, no erythema, lips, buccal mucosa, and tongue normal and mucous membranes are dry NECK: supple, no nuchal rigidity, no adenopathy, non-tender LUNGS: Clear to auscultation. Normal chest wall mechanics, no w/r/r HEART: no murmurs, S1 normal and S2 normal ABDOMEN: abdomen soft, non-tender, normo-active bowel sounds, no masses, no rebound or guarding. BACK: Back is symmetrical on inspection and there is no deformity, no midline tenderness, no CVA tenderness. SKIN: no rashes, petechiae, orbruising UPPER EXTREMITIES: upper extremities are grossly normal. FROM, nml pulses b/l. LOWER EXTREMITIES: 2+ b/l pitting edema. FROM, nml pulses b/l. NEURO EXAM: Normal sensorium, cranial nerves II-XII grossly intact, normal speech, no facial droop,nogross weakness of arms, no gross weakness of legs. Gross sensation intact. No ataxia. Vital Signs: reviewed and remarkable Differential Diagnosis: Dehydration, AZRA, electrolyte abnormality, CHI, ICH, CVA, dysrhythmia, ACS, PE, dissection, GERD, GI bleed, as well as others were considered MEDICAL DECISION MAKING: This is a 73-year-old male who presents due to concern for chest pain at home which was resolved with nitro. Patient also admits to recent fall 2 weeks ago. He denies any concern for injury related to this fall. Labs drawn and sent, IV established, EKG and chest x-ray performed bedside interpreted by me and patient monitored on telemetry. Patient denied any recurrent chest pain, no ectopy or dysrhythmia noted on on telemetry. Patient was started on IV fluids as a precaution as he appeared clinically dehydrated. Labs revealed significant hyponatremia at 125, significant LFT abnormalities, hyperglycemia, as well as elevated troponin. Upon review of prior history, patient does have a history of alcohol abuse and has previously been hyponatremic. Patient's describe neuropathy at bedside likely secondary to alcohol abuse. Patient's LFTs markedly higher even compared to prior. Consultation(s): 0058: Discussed with Dr. Arriaga, [facility] hospitalist team, for additional evaluation. ER Treatment Provided: See below Diagnostics Interpreted By Me: -ECG: Tachycardia 107, left axis, normal QRS and QTc, nonspecific ST/T wave changes, PACs noted, significant baseline artifact -Cardiac Monitoring: An order was placed for continuous cardiac monitoring. The monitor shows a rate of 98 with normal sinus rhythm. -Laboratory studies: As stated above and show below. -Imaging studies: X-ray Chest: A single view study of the chest was reviewed and was negative for cardiomegaly, focal infiltrate, effusion, pulmonary edema, or wide mediastinum. Triage Nursing Note Reviewed Prior/Outside Records Reviewed - prior DC summary reviewed Past Med/Surg History Medical History (Updated 05/05/23 @ 05:24 by Solitario Arriaga MD) T2DM (type 2 diabetes mellitus) History of anesthesia reaction "my heart started to race" - during eye surgery [facility] PAD (peripheral artery disease) Osteoarthritis WIYOT (hard of hearing) History of myocardial infarction 1980s Poor historian History of stroke 09/2021 - no deficits PAD (peripheral artery disease) CAD (coronary atherosclerotic disease) Alcohol abuse Fall Acute hyponatremia Acute kidney injury DVT prophylaxis Acute systolic heart failure Noncompliance Increasing shortness of breath Elevated troponin Atrial fibrillation follows with [facility] Hypervolemia COPD (chronic obstructive pulmonary disease) CHF (congestive heart failure) NICM (nonischemic cardiomyopathy) Alcohol abuse HTN (hypertension) Anxiety GERD (gastroesophageal reflux disease) CKD (chronic kidney disease), stage III Left ventricular dysfunction Syndesmotic disruption of right ankle Fracture dislocation of right ankle History of left heart catheterization (LHC) "nonocclusive CAD, normal LV function" Alcohol abuse HLD (hyperlipidemia) DM2 (diabetes mellitus, type 2) COPD (chronic obstructive pulmonary disease) Surgical History History of non-cataract eye surgery History of cervical spinal surgery ROM WNL History of vascular surgery History of esophagogastroduodenoscopy (EGD) History of colonoscopy History of cardiac cath 09/2021 [place] - 1 stent 2008-nonocclussive CAD History of ankle surgery Family History Brother Pancreatic cancer Cancer Mother Diabetes Myocardial infarction Sister Diabetes Father Heart disease Myocardial infarction Other No family history of adverse response to anesthesia Denies family history of Ovarian cancer Prostate cancer Breast cancer Colorectal cancer Social History Smoking Status: Former smoker Tobacco Type: Cigarettes Second Hand Exposure: Yes; Do You Dip or Chew Tobacco: No; Hx Alcohol Use: No Hx Substance Use: No Preferred Language: Malay Communication Ability: Effective Visual Impairment: No Limitations Hearing Ability: Hard of Hearing Insurance Business Analyst Required: No Beliefs That Will Affect Care: None marital status: Single Current Living Situation: Alone current occupational status: retired How many Children do You have: 4 Feels Safe at Home: No Is there a partner from a previous relationship who is making you feel unsafe now?: No Childhood Exposure to Second-Hand Smoke: Yes caffeine: Yes (coffee) during the past year weight has: remained stable Dental Care, Regularly: No Physical Activity Frequency: Daily Seatbelt Use: always Sunscreen Use: No Assistive Devices: Cane and Walker Allergies Allergies Allergy/AdvReac Type Severity Reaction Status Date / Time No Known Allergies Allergy Verified 05/05/23 01:22 Home Meds Home Medications Medication Instructions Recorded Confirmed gabapentin 100 mg capsule 100 mg PO TID 01/29/23 05/05/23 dapagliflozin propanediol 10 mg 10 mg PO DAILY 05/05/23 05/05/23 tablet (Farxiga) folic acid 1 mg tablet 1 mg PO DAILY 05/05/23 05/05/23 insulin glargine 100 unit/mL (3 0 unit subcut .UD 05/05/23 05/05/23 mL) subcutaneous pen (Lantus Solostar U-100 Insulin) levothyroxine 25 mcg tablet 25 mcg PO DAILYBB 05/05/23 05/05/23 Previous Rx's Medication Instructions Recorded Shower Chair #1 ea 08/19/22 albuterol sulfate 90 mcg/actuation 2 puff inhalation Q4H PRN 10/20/22 aerosol inhaler Wheezing/Dyspnea #8.5 grams apixaban 5 mg tablet (Eliquis) 5 mg PO BID 30 days #60 tabs 10/24/22 atorvastatin 40 mg tablet 40 mg PO DAILY #30 tabs 10/24/22 clopidogrel 75 mg tablet 75 mg PO QAM 30 days #30 tabs 10/24/22 enalapril maleate 10 mg tablet 10 mg PO DAILY 30 days #30 tabs 10/24/22 fluticasone 250 mcg-salmeterol 50 1 inh inhalation BID #60 ea 10/24/22 mcg/dose blistr powdr for inhalation (Advair Diskus) furosemide 20 mg tablet 40 mg (2 x 20 mg) PO DAILY #60 tabs 10/24/22 metoprolol succinate 100 mg 100 mg PO DAILY #30 tabs 10/24/22 tablet,extended release 24 hr potassium chloride 10 mEq 10 meq PO DAILY #30 tabs 10/25/22 tablet,extended release thiamine HCl (vitamin B1) 100 mg 100 mg PO QAM #30 tabs 10/25/22 tablet nitroglycerin 0.4 mg sublingual 0.4 mg sublingual Q5M PRN chest 03/22/23 tablet (Nitrostat) pain #25 tabs Results & Data (ED) Vital Signs Vital Signs - 24 hr 05/04/23 22:12 05/04/23 22:14 05/04/23 22:14 Temperature 36.9 C Temperature Source Oral Pulse Rate 104 H 107 H Pulse Rate [Apical] Pulse Rhythm Regular Pulse Strength Normal Respiratory Rate 20 Respiratory Effort / Characteristics Spontaneous Short of Breath SOB on Exertion Respiratory Depth Normal Blood Pressure 134/107 H Blood Pressure [Right Arm] Blood Pressure Mean 116 Blood Pressure Mean [Right Arm] Blood Pressure Position Semi-fowlers Pulse Oximetry 98 Oxygen Delivery Method Nasal Cannula Nasal Cannula Oxygen Flow Rate 2 2 Sepsis Recent Fever Within 48 Hours No Sepsis New/Unexplained Change in Mental Status No Sepsis Action Taken by Nursing No Action Required 05/04/23 22:14 05/04/23 22:14 05/04/23 23:06 Temperature Temperature Source Pulse Rate 109 H Pulse Rate [Apical] Pulse Rhythm Pulse Strength Respiratory Rate 22 Respiratory Effort / Characteristics Short of Breath SOB on Exertion Respiratory Depth Normal Blood Pressure Blood Pressure [Right Arm] Blood Pressure Mean Blood Pressure Mean [Right Arm] Blood Pressure Position Pulse Oximetry 99 99 98 Oxygen Delivery Method Nasal Cannula Nasal Cannula Nasal Cannula Oxygen Flow Rate 2 2 2 Sepsis Recent Fever Within 48 Hours Sepsis New/Unexplained Change in Mental Status Sepsis Action Taken by Nursing 05/05/23 00:00 05/05/23 02:00 05/05/23 02:16 Temperature Temperature Source Pulse Rate 103 H Pulse Rate [Apical] 103 H 106 H Pulse Rhythm Pulse Strength Respiratory Rate 22 20 Respiratory Effort / Characteristics Respiratory Depth Blood Pressure Blood Pressure [Right Arm] 136/97 149/102 H Blood Pressure Mean Blood Pressure Mean [Right Arm] 110 117 Blood Pressure Position Pulse Oximetry 97 99 Oxygen Delivery Method Room Air Oxygen Flow Rate Sepsis Recent Fever Within 48 Hours Sepsis New/Unexplained Change in Mental Status Sepsis Action Taken by Nursing Laboratory Data 05/04/23 22:15 05/04/23 22:15 Lab Results 05/04/23 05/05/23 05/05/23 Range/Units 22:15 00:13 01:45 WBC 7.49 (4.8-10.8) K/ul RBC 4.34 L (4.70-6.10) M/uL Hgb 13.2 L (14.0-18.0) g/dl Hct 38.3 L (42.0-52.0) % MCV 88.2 (80.0-100.0) fL MCH 30.4 (25.0-34.0) pg MCHC 34.5 (32.0-36.0) g/dL RDW Std Deviation 45.1 (36.4-46.3) fL RDW Coeff of Cole 14.2 (11.5-14.5) % Plt Count 153 (130-400) K/uL MPV 12.1 (9.4-12.4) fL Immature Gran % (Auto) 0.5 % Neut % (Auto) 66.4 % Lymph % (Auto) 17.9 % [place] % (Auto) 14.4 % Eos % (Auto) 0.5 % Baso % (Auto) 0.3 % Neut # (Auto) 4.97 (1.40-6.50) K/uL Lymph # (Auto) 1.34 (1.20-3.40) K/uL [place] # (Auto) 1.08 H (0.11-0.59) K/uL Eos # (Auto) 0.04 (0.00-0.50) K/uL Baso # (Auto) 0.02 (0.00-0.20) K/uL Immature Gran # (Auto) 0.04 (0.01-0.20) K/uL PT 15.8 H (9.0-12.0) Seconds INR 1.5 H (0.9-1.1) Sodium 125 L (136-145) mmol/L Potassium 3.4 L (3.5-5.1) mmol/L Chloride 88 L (98-107) mmol/L Carbon Dioxide 25 (21-32) mmol/L Anion Gap 12 H (3-11) BUN 38 H (6-23) mg/dl Creatinine 1.44 H (0.6-1.4) mg/dl Est Cr Clr Drug Dosing 48.9 ml/min Est GFR ( Amer) 55.8 ml/min Est GFR (Non-Af Amer) 48.2 ml/min BUN/Creatinine Ratio 26.4 H (10-20) Glucose 183 H (70-99(Fasting)) mg/dl Osmolality 279 L (280-300) mOsm/kg Calcium 8.4 L (8.6-10.3) mg/dl Total Bilirubin 2.1 H (0.2-1.0) mg/dl AST 350 H (13-39) U/L ALT 587 H (7-52) U/L Alkaline Phosphatase 272 H (34-104) U/L Ammonia 32.0 (18-72) umol/L Troponin I High Sens 77.8 H* 73.7 H* (0-20) pg/ml Total Protein 6.5 (6.0-8.3) gm/dl Albumin 3.5 (3.4-5.0) gm/dl Globulin 3.0 (2.5-4.0) gm/dl Albumin/Globulin Ratio 1.2 (0.9-2) Lipase 42 (11-82) U/L Adenovirus (PCR) Not Detected (NotDetected) B. pertussis DNA (PCR) Not Detected (NotDetected) B.parapertussis DNA PCR Not Detected (NotDetected) C. pneumoniae DNA (PCR) Not Detected (NotDetected) Coronavirus OC43 (PCR) Not Detected (NotDetected) Coronavirus HKU1 (PCR) Not Detected (NotDetected) Coronavirus 229E (PCR) Not Detected (NotDetected) SARS-CoV-2 (PCR) Not Detected (NotDetected) Coronavirus NL63 (PCR) Not Detected (NotDetected) Human Metapneumovir PCR Not Detected (NotDetected) Influenza Type A (PCR) Not Detected (NotDetected) Influenza Type B (PCR) Not Detected (NotDetected) M. pneumoniae (PCR) Not Detected (NotDetected) Parainfluenza 1 (PCR) Not Detected (NotDetected) Parainfluenza 2 (PCR) Not Detected (NotDetected) Parainfluenza 3 (PCR) Not Detected (NotDetected) Parainfluenza 4 (PCR) Not Detected (NotDetected) RSV (PCR) Not Detected (NotDetected) Entero/Rhino (PCR) Not Detected (NotDetected) Administered Medications Discontinued Medications Thiamine HCl 500 mg/ Sodium (Chloride) 55 mls @ 210 mls/hr IV NOW STA Stop: 05/05/23 01:10 Last Infusion: 05/05/23 01:52 Dose: Infused Documented By: Admin: 05/05/23 01:36 Dose: 210 mls/hr Documented By: MARQUES Folic Acid 1 mg/ Syringe 10 mls @ 5 mls/min IV NOW STA Stop: 05/05/23 00:57 Last Admin: 05/05/23 01:36 Dose: 5 mls/min Documented By: MARQUES Imaging Data Radiologist's Impression: Abdomen/Pelvis CT 05/05/23 00:45 Exam(s): CT ABDOMEN + PELVIS Without Contrast EXAM: CT Abdomen and Pelvis Without Intravenous Contrast CLINICAL HISTORY: Reason for exam: abnormal LFT's, encephalopathy. TECHNIQUE: Axial computed tomography images of the abdomen and pelvis without intravenous contrast. CTDI is 23.95 mGy and DLP is 1152 mGy-cm. Automated exposure control was utilized for the study. A dose lowering technique was utilized adhering to the principles of ALARA. COMPARISON: No relevant prior studies available. FINDINGS: Limitations: Limited examination in the absence of contrast. Lung bases: Lingular and left lower lobe scarring. Heart: Cardiomegaly. Coronary artery calcifications. ABDOMEN: Liver: Unremarkable. Gallbladder and bile ducts: Unremarkable. No calcified stones. No ductal dilation. Pancreas: Pancreatic fatty atrophy. No ductal dilation. Spleen: Unremarkable. No splenomegaly. Adrenals: Unremarkable. No mass. Kidneys and ureters: No evidence of radiopaque renal calculi or signs of collecting system dilatation. Stomach and bowel: Mild rectal wall thickening with presacral fluid and stranding. Additional thickening of the descending colon. Findings may relate to proctocolitis. No obstruction. PELVIS: Appendix: No findings to suggest acute appendicitis. Bladder: Diffuse bladder wall thickening with mild adjacent stranding. Findings may be due to cystitis. Consider correlation with laboratory values. No stones. Reproductive: Unremarkable as visualized. ABDOMEN and PELVIS: Intraperitoneal space: Mild mesenteric ascites which likely relates to volume overload. This may be secondary to sequela of portal hypertension. No free air. Bones/joints: Flowing osteophyte formations in the spine compatible with diffuse idiopathic skeletal hyperostosis (DISH). No acute fracture. No dislocation. Soft tissues: Anasarca. Subcutaneous calcifications along the left hemiabdomen. Vasculature: Aortic value calcifications. Atherosclerotic disease with occlusion of the right common femoral bifurcation. This is favored to be chronic in nature. Lymph nodes: Unremarkable. No enlarged lymph nodes. IMPRESSION: 1. Limited examination in the absence of contrast. 2. No evidence of radiopaque renal calculi or signs of collecting system dilatation. 3. Diffuse bladder wall thickening with mild adjacent stranding. Findings may be due to cystitis. Consider correlation with laboratory values. 4. Mild rectal wall thickening with presacral fluid and stranding. Additional thickening of the descending colon. Findings may relate to proctocolitis. 5. Mild mesenteric ascites which likely relates to volume overload. This may be secondary to sequela of portal hypertension. 6. Atherosclerotic disease with occlusion of the right common femoral bifurcation. This is favored to be chronic in nature. 7. No other acute findings. 8. Incidental findings as described in the body of report. Electronically signed by: Chris Nuñez MD 05/05/23 05:23 AM Discharge Plan Visit Data Chief Complaint: Chest Pain Stated Complaint: CHEST PAIN, SOB ED Provider: Jessica Abdalla Discharge Problem: Chest pain, Abnormal LFTs, Neuropathy, Hyponatremia Patient Disposition: Admitted As Inpatient Discharge Instructions Interventions: ED Discharge Assessment Last Done: 05/05/23 05:31
[2023-05-05 00:34] LABS: Basophils # (auto) 0.02 K/uL (0.00-0.20); Basophils % (auto) 0.3 %; Eosinophils # (auto) 0.04 K/uL (0.00-0.50); Eosinophils % (auto) 0.5 %; Hematocrit (blood only) 38.3 % (42.0-52.0); Hemoglobin 13.2 g/dl (14.0-18.0); Immature Granulocytes # (auto) 0.04 K/uL (0.01-0.20); Immature Granulocytes % (auto) 0.5 %; Lymphocytes # (auto) 1.34 K/uL (1.20-3.40); Lymphocytes % (auto) 17.9 %; Mean Corpuscular Hemoglobin 30.4 pg (25.0-34.0); Mean Corpuscular Hgb Conc 34.5 g/dL (32.0-36.0); Mean Corpuscular Volume 88.2 fL (80.0-100.0); Mean Platelet Volume 12.1 fL (9.4-12.4); Monocytes # (auto) 1.08 K/uL (0.11-0.59); Monocytes % (auto) 14.4 %; Neutrophils # (auto) 4.97 K/uL (1.40-6.50); Neutrophils % (auto) 66.4 %; Platelet Count 153 K/uL (130-400); RDW Coefficient of Variation 14.2 % (11.5-14.5); RDW Standard Deviation 45.1 fL (36.4-46.3); Red Blood Count 4.34 M/uL (4.70-6.10); White Blood Count 7.49 K/ul (4.8-10.8)
[2023-05-05 00:41] LABS: INR 1.5 (0.9-1.1); Prothrombin Time 15.8 Seconds (9.0-12.0)
[2023-05-05] MEDS ORDERED: THIAMINE HCL 500 MG in SODIUM CHLORIDE 0.9% 50 ML IV STA (00:55)
[2023-05-05] MEDS ORDERED: FOLIC ACID 1 MG in SYRINGE 9.8 ML IV STA (00:56)
[2023-05-05 01:55] LABS: Adenovirus PCR Not Detected (NotDetected); Bordetella parapertussis PCR Not Detected (NotDetected); Bordetella pertussis PCR Not Detected (NotDetected); Chlamydia pneumoniae PCR Not Detected (NotDetected); Coronavirus 229E PCR Not Detected (NotDetected); Coronavirus CoV-2 (COVID19)PCR Not Detected (NotDetected); Coronavirus HKU1 PCR Not Detected (NotDetected); Coronavirus NL63 PCR Not Detected (NotDetected); Coronavirus OC43PCR Not Detected (NotDetected); Human Metapneumovirus PCR Not Detected (NotDetected); Influenza A PCR Not Detected (NotDetected); Influenza B PCR Not Detected (NotDetected); Mycoplasma pneumoniae PCR Not Detected (NotDetected); Parainfluenza Virus 1 PCR Not Detected (NotDetected); Parainfluenza Virus 2 PCR Not Detected (NotDetected); Parainfluenza Virus 3 PCR Not Detected (NotDetected); Parainfluenza Virus 4 PCR Not Detected (NotDetected); Respiratory Syncytial VirusPCR Not Detected (NotDetected); Rhinovirus/Enterovirus PCR Not Detected (NotDetected)
--- NOTE | 2023-05-05 05:24 | CT Scan Report ---
Exam(s): CT ABDOMEN + PELVIS Without Contrast EXAM: CT Abdomen and Pelvis Without Intravenous Contrast CLINICAL HISTORY: Reason for exam: abnormal LFT's, encephalopathy. TECHNIQUE: Axial computed tomography images of the abdomen and pelvis without intravenous contrast. CTDI is 23.95 mGy and DLP is 1152 mGy-cm. Automated exposure control was utilized for the study. A dose lowering technique was utilized adhering to the principles of ALARA. COMPARISON: No relevant prior studies available. FINDINGS: Limitations: Limited examination in the absence of contrast. Lung bases: Lingular and left lower lobe scarring. Heart: Cardiomegaly. Coronary artery calcifications. ABDOMEN: Liver: Unremarkable. Gallbladder and bile ducts: Unremarkable. No calcified stones. No ductal dilation. Pancreas: Pancreatic fatty atrophy. No ductal dilation. Spleen: Unremarkable. No splenomegaly. Adrenals: Unremarkable. No mass. Kidneys and ureters: No evidence of radiopaque renal calculi or signs of collecting system dilatation. Stomach and bowel: Mild rectal wall thickening with presacral fluid and stranding. Additional thickening of the descending colon. Findings may relate to proctocolitis. No obstruction. PELVIS: Appendix: No findings to suggest acute appendicitis. Bladder: Diffuse bladder wall thickening with mild adjacent stranding. Findings may be due to cystitis. Consider correlation with laboratory values. No stones. Reproductive: Unremarkable as visualized. ABDOMEN and PELVIS: Intraperitoneal space: Mild mesenteric ascites which likely relates to volume overload. This may be secondary to sequela of portal hypertension. No free air. Bones/joints: Flowing osteophyte formations in the spine compatible with diffuse idiopathic skeletal hyperostosis (DISH). No acute fracture. No dislocation. Soft tissues: Anasarca. Subcutaneous calcifications along the left hemiabdomen. Vasculature: Aortic value calcifications. Atherosclerotic disease with occlusion of the right common femoral bifurcation. This is favored to be chronic in nature. Lymph nodes: Unremarkable. No enlarged lymph nodes. IMPRESSION: 1. Limited examination in the absence of contrast. 2. No evidence of radiopaque renal calculi or signs of collecting system dilatation. 3. Diffuse bladder wall thickening with mild adjacent stranding. Findings may be due to cystitis. Consider correlation with laboratory values. 4. Mild rectal wall thickening with presacral fluid and stranding. Additional thickening of the descending colon. Findings may relate to proctocolitis. 5. Mild mesenteric ascites which likely relates to volume overload. This may be secondary to sequela of portal hypertension. 6. Atherosclerotic disease with occlusion of the right common femoral bifurcation. This is favored to be chronic in nature. 7. No other acute findings. 8. Incidental findings as described in the body of report. Electronically signed by: Chris Nuñez MD 05/05/23 05:23 AM
[2023-05-05] MEDS ORDERED: FUROSEMIDE 40 MG/4 ML VIAL IV ONE (05:33)
--- NOTE | 2023-05-05 05:55 | History & Physical Report ---
Date of Service May 05, 2023 Assessment & Plan (1) Hyponatremia: (2) Neuropathy: (3) Abnormal LFTs: (4) Chest pain: (5) Alcohol abuse: (6) NSTEMI (non-ST elevated myocardial infarction): (7) PAF (paroxysmal atrial fibrillation): (8) Chronic systolic congestive heart failure, NYHA class 2: (9) Non-ischemic cardiomyopathy: (10) HTN (hypertension): (11) Encephalopathy: Plan Encephalopathy/confusion and disorientation- Unclear etiology at this time, with possible contributing factors including but not limited to: Abnormal liver function, hyponatremia, NSTEMI, CHF CT of the head ordered and pending Respiratory BioFire testing negative Abnormal LFTs- AST 350, ALT 587, total bilirubin 2.[address] scan abdomen pelvis without contrast: No evidence of renal calculi or obstruction Diffuse bladder wall thickening which may be due to cystitis Mild rectal wall thickening with presacral fluid and stranding/thickening of descending colon, which may relate to proctocolitis Mild mesenteric ascites likely related to volume overload/portal hypertension May be alcoholic hepatitis, gallbladder dysfunction, autoimmune, hepatic congestion from CHF, others Has no urinary or GI symptoms Elevated troponin/chronic systolic CHF/PAF/nonischemic cardi omyopathy/hypertension- Troponin initially 77.8, with follow-up 73.7 The patient will be admitted to telemetry for serial cardiac enzymes, serial EKG's, cardiac rhythm monitoring Most recent echo on 01/30/2023, with ejection fraction 25-30% Give furosemide 40 mg IV x1 and every morning Continue apixaban, clopidogrel, enalapril and metoprolol succinate Serial renal function panel and magnesium levels Hyponatremia- Sodium 125, serum osmolality 279, urine osmolality pending May be an element of beer Potomania Fluid restrict, diurese with Lasix IV, and recheck laboratories in a.m. CKD- Creatinine 1.44, with base around the same Follow laboratories as diuresis occurs Alcohol abuse- Alcohol level less than 10 on admission Placed on AWSS protocol with IV Ativan Give thiamine 500 mg IV x1 in the ED along with folic acid 1 mg IV Continue thiamine 100 mg orally every morning and folic acid 1 mg every morning History of Present Illness Chief Complaint: The patient presents to the emergency department due to chest pain that woke him from sleep earlier this evening, accompanied by nausea, shortness of breath and lightheadedness. He reports the pain resolved after taking a sublingual nitroglycerin at home Primary Care Provider: Janell Aldana DO The patient is a 73-year-old male with a past medical history including peripheral neuropathy, alcohol abuse, hypothyroidism, PSVT, PAF, chronic systolic heart failure, nonischemic cardiomyopathy, hypertension, anxiety, GERD, hyperlipidemia and COPD. He presents to the emergency department for assessment of symptoms as noted above. He has a history of ambulatory dysfunction associated with peripheral neuropathy and he reports circulatory issues in his legs. Allergies Allergy/AdvReac Type Severity Reaction Status Date / Time No Known Allergies Allergy Verified 05/05/23 01:22 Home Medications Medication Instructions Recorded Confirmed Type Shower Chair #1 ea 08/19/22 02/20/23 Rx albuterol sulfate 90 mcg/actuation 2 puff inhalation Q4H PRN 10/20/22 05/05/23 Rx aerosol inhaler Wheezing/Dyspnea #8.5 grams apixaban 5 mg tablet (Eliquis) 5 mg PO BID 30 days #60 tabs 10/24/22 05/05/23 Rx atorvastatin 40 mg tablet 40 mg PO DAILY #30 tabs 10/24/22 05/05/23 Rx clopidogrel 75 mg tablet 75 mg PO QAM 30 days #30 tabs 10/24/22 05/05/23 Rx enalapril maleate 10 mg tablet 10 mg PO DAILY 30 days #30 tabs 10/24/22 05/05/23 Rx fluticasone 250 mcg-salmeterol 50 1 inh inhalation BID #60 ea 10/24/22 05/05/23 Rx mcg/dose blistr powdr for inhalation (Advair Diskus) furosemide 20 mg tablet 40 mg (2 x 20 mg) PO DAILY #60 tabs 10/24/22 05/05/23 Rx metoprolol succinate 100 mg 100 mg PO DAILY #30 tabs 10/24/22 05/05/23 Rx tablet,extended release 24 hr potassium chloride 10 mEq 10 meq PO DAILY #30 tabs 10/25/22 05/05/23 Rx tablet,extended release thiamine HCl (vitamin B1) 100 mg 100 mg PO QAM #30 tabs 10/25/22 05/05/23 Rx tablet gabapentin 100 mg capsule 100 mg PO TID 01/29/23 05/05/23 History nitroglycerin 0.4 mg sublingual 0.4 mg sublingual Q5M PRN chest 03/22/23 05/05/23 Rx tablet (Nitrostat) pain #25 tabs dapagliflozin propanediol 10 mg 10 mg PO DAILY 05/05/23 05/05/23 History tablet (Farxiga) folic acid 1 mg tablet 1 mg PO DAILY 05/05/23 05/05/23 History insulin glargine 100 unit/mL (3 0 unit subcut .UD 05/05/23 05/05/23 History mL) subcutaneous pen (Lantus Solostar U-100 Insulin) levothyroxine 25 mcg tablet 25 mcg PO DAILYBB 05/05/23 05/05/23 History Past Med/Surg History Medical History (Updated 05/05/23 @ 05:24 by Solitario Arriaga MD) T2DM (type 2 diabetes mellitus) History of anesthesia reaction "my heart started to race" - during eye surgery [facility] PAD (peripheral artery disease) Osteoarthritis [place] (hard of hearing) History of myocardial infarction 1980s Poor historian History of stroke 09/2021 - no deficits PAD (peripheral artery disease) CAD (coronary atherosclerotic disease) Alcohol abuse Fall Acute hyponatremia Acute kidney injury DVT prophylaxis Acute systolic heart failure Noncompliance Increasing shortness of breath Elevated troponin Atrial fibrillation follows with [facility] Hypervolemia COPD (chronic obstructive pulmonary disease) CHF (congestive heart failure) NICM (nonischemic cardiomyopathy) Alcohol abuse HTN (hypertension) Anxiety GERD (gastroesophageal reflux disease) CKD (chronic kidney disease), stage III Left ventricular dysfunction Syndesmotic disruption of right ankle Fracture dislocation of right ankle History of left heart catheterization (LHC) "nonocclusive CAD, normal LV function" Alcohol abuse HLD (hyperlipidemia) DM2 (diabetes mellitus, type 2) COPD (chronic obstructive pulmonary disease) Surgical History History of non-cataract eye surgery History of cervical spinal surgery ROM WNL History of vascular surgery History of esophagogastroduodenoscopy (EGD) History of colonoscopy History of cardiac cath 09/2021 [place] - 1 stent 2008-nonocclussive CAD History of ankle surgery Family History Brother Pancreatic cancer Cancer Mother Diabetes Myocardial infarction Sister Diabetes Father Heart disease Myocardial infarction Other No family history of adverse response to anesthesia Denies family history of Ovarian cancer Prostate cancer Breast cancer Colorectal cancer Social History Smoking Status: Former smoker Tobacco Type: Cigarettes Second Hand Exposure: Yes; Do You Dip or Chew Tobacco: No; Hx Alcohol Use: No Hx Substance Use: No Preferred Language: Arabic Communication Ability: Effective Visual Impairment: No Limitations Hearing Ability: Hard of Hearing Perennial House Manager Required: No Beliefs That Will Affect Care: None marital status: Single Current Living Situation: Alone current occupational status: retired How many Children do You have: 4 Feels Safe at Home: No Is there a partner from a previous relationship who is making you feel unsafe now?: No Childhood Exposure to Second-Hand Smoke: Yes caffeine: Yes (coffee) during the past year weight has: remained stable Dental Care, Regularly: No Physical Activity Frequency: Daily Seatbelt Use: always Sunscreen Use: No Assistive Devices: Cane and Walker Review of Systems Review of Systems: The patient denies chest pain, palpitations, cough, sore throat, fevers, chills, sweats, nausea, vomiting, diarrhea , constipation, abdominal pain, pelvic pain, blood in urine or stool, dysuria, urinary frequency or urgency, loss of consciousness, rash, abnormal bruising or bleeding, focal weakness, numbness or tingling in arms or legs, back or neck pain, or night sweats. The review of systems is otherwise negative other than for that already noted above, and at least 10 systems have been reviewed. Physical Exam Physical Exam: The patient is awake, slow to respond, appears somewhat confused and disoriented, normocephalic and atraumatic, lying in bed and in no acute distress. HEENT--PERRL, EOMI, mucous membranes and oropharynx dry. Neck--supple. No JVD. No bruits. Thyroid normal, trachea midline, no adenopathy. Heart--normal S1 and S2. No murmurs, rubs or gallops. Lungs--breath sounds diminished throughout. No respiratory distress, no acc essory muscle use. Abdomen--normal bowel sounds and soft. Nontender. Nondistended. Extremities--trace pitting edema bilaterally Dermatologic--normal skin turgor, normal color, no abnormal lymph nodes, no rash. Neurologic--cranial nerves II through XII grossly intact. Rheumatologic--limited exam Psychiatric--slow to respond, intermittently appears confused and disoriented Results & Data Results & Data Vital Signs (Past 12 Hours) Vital Signs Temp Pulse Pulse Resp BP BP Pulse Ox 05/05/23 04:00 105 H 20 135/95 97 05/05/23 02:16 103 H 05/05/23 02:00 106 H 20 149/102 H 99 05/05/23 00:00 103 H 22 136/97 97 05/04/23 23:06 109 H 98 05/04/23 22:14 22 99 05/04/23 22:14 99 05/04/23 22:14 36.9 C 107 H 20 134/107 H 98 05/04/23 22:14 05/04/23 22:12 104 H O2 Del Method O2 Flow Rate 05/05/23 04:00 05/05/23 02:16 05/05/23 02:00 Room Air 05/05/23 00:00 05/04/23 23:06 Nasal Cannula 2 05/04/23 22:14 Nasal Cannula 2 05/04/23 22:14 Nasal Cannula 2 05/04/23 22:14 Nasal Cannula 2 05/04/23 22:14 Nasal Cannula 2 05/04/23 22:12 Laboratory Results Laboratory Results WBC 7.49 K/ul (4.8-10.8) 05/04/23 22:15 RBC 4.34 M/uL (4.70-6.10) L 05/04/23 22:15 Hgb 13.2 g/dl (14.0-18.0) L 05/04/23 22:15 Hct 38.3 % (42.0-52.0) L 05/04/23 22:15 MCV 88.2 fL (80.0-100.0) 05/04/23 22:15 MCH 30.4 pg (25.0-34.0) 05/04/23 22:15 MCHC 34.5 g/dL (32.0-36.0) 05/04/23 22:15 RDW Std Deviation 45.1 fL (36.4-46.3) 05/04/23 22:15 RDW Coeff of Cole 14.2 % (11.5-14.5) 05/04/23 22:15 Plt Count 153 K/uL (130-400) 05/04/23 22:15 MPV 12.1 fL (9.4-12.4) 05/04/23 22:15 Immature Gran % (Auto) 0.5 % 05/04/23 22:15 Neut % (Auto) 66.4 % 05/04/23 22:15 Lymph % (Auto) 17.9 % 05/04/23 22:15 Tama % (Auto) 14.4 % 05/04/23 22:15 Eos % (Auto) 0.5 % 05/04/23 22:15 Baso % (Auto) 0.3 % 05/04/23 22:15 Neut # (Auto) 4.97 K/uL (1.40-6.50) 05/04/23 22:15 Lymph # (Auto) 1.34 K/uL (1.20-3.40) 05/04/23 22:15 Tama # (Auto) 1.08 K/uL (0.11-0.59) H 05/04/23 22:15 Eos # (Auto) 0.04 K/uL (0.00-0.50) 05/04/23 22:15 Baso # (Auto) 0.02 K/uL (0.00-0.20) 05/04/23 22:15 Immature Gran # (Auto) 0.04 K/uL (0.01-0.20) 05/04/23 22:15 PT 15.8 Seconds (9.0-12.0) H 05/04/23 22:15 INR 1.5 (0.9-1.1) H 05/04/23 22:15 Sodium 125 mmol/L (136-145) L 05/04/23 22:15 Potassium 3.4 mmol/L (3.5-5.1) L 05/04/23 22:15 Chloride 88 mmol/L (98-107) L 05/04/23 22:15 Carbon Dioxide 25 mmol/L (21-32) 05/04/23 22:15 Anion Gap 12 (3-11) H 05/04/23 22:15 BUN 38 mg/dl (6-23) H 05/04/23 22:15 Creatinine 1.44 mg/dl (0.6-1.4) H 05/04/23 22:15 Est Cr Clr Drug Dosing 48.9 ml/min 05/04/23 22:15 Est GFR ( Amer) 55.8 ml/min 05/04/23 22:15 Est GFR (Non-Af Amer) 48.2 ml/min 05/04/23 22:15 BUN/Creatinine Ratio 26.4 (10-20) H 05/04/23 22:15 Glucose 183 mg/dl (70-99(Fasting)) H 05/04/23 22:15 Osmolality 279 mOsm/kg (280-300) L 05/04/23 22:15 Calcium 8.4 mg/dl (8.6-10.3) L 05/04/23 22:15 Total Bilirubin 2.1 mg/dl (0.2-1.0) H 05/04/23 22:15 AST 350 U/L (13-39) H 05/04/23 22:15 ALT 587 U/L (7-52) H 05/04/23 22:15 Alkaline Phosphatase 272 U/L (34-104) H 05/04/23 22:15 Ammonia 32.0 umol/L (18-72) 05/05/23 01:45 Troponin I High Sens 73.7 pg/ml (0-20) H* 05/05/23 01:45 Total Protein 6.5 gm/dl (6.0-8.3) 05/04/23 22:15 Albumin 3.5 gm/dl (3.4-5.0) 05/04/23 22:15 Globulin 3.0 gm/dl (2.5-4.0) 05/04/23 22:15 Albumin/Globulin Ratio 1.2 (0.9-2) 05/04/23 22:15 Lipase 42 U/L (11-82) 05/04/23 22:15 Ethyl Alcohol mg/dL < 10.0 mg/dl (<10.0) 05/05/23 03:16 Adenovirus (PCR) Not Detected (NotDetected) 05/05/23 00:13 B. pertussis DNA (PCR) Not Detected (NotDetected) 05/05/23 00:13 B.parapertussis DNA PCR Not Detected (NotDetected) 05/05/23 00:13 C. pneumoniae DNA (PCR) Not Detected (NotDetected) 05/05/23 00:13 Coronavirus OC43 (PCR) Not Detected (NotDetected) 05/05/23 00:13 Coronavirus HKU1 (PCR) Not Detected (NotDetected) 05/05/23 00:13 Coronavirus 229E (PCR) Not Detected (NotDetected) 05/05/23 00:13 SARS-CoV-2 (PCR) Not Detected (NotDetected) 05/05/23 00:13 Coronavirus NL63 (PCR) Not Detected (NotDetected) 05/05/23 00:13 Human Metapneumovir PCR Not Detected (NotDetected) 05/05/23 00:13 Influenza Type A (PCR) Not Detected (NotDetected) 05/05/23 00:13 Influenza Type B (PCR) Not Detected (NotDetected) 05/05/23 00:13 M. pneumoniae (PCR) Not Detected (NotDetected) 05/05/23 00:13 Parainfluenza 1 (PCR) Not Detected (NotDetected) 05/05/23 00:13 Parainfluenza 2 (PCR) Not Detected (NotDetected) 05/05/23 00:13 Parainfluenza 3 (PCR) Not Detected (NotDetected) 05/05/23 00:13 Parainfluenza 4 (PCR) Not Detected (NotDetected) 05/05/23 00:13 RSV (PCR) Not Detected (NotDetected) 05/05/23 00:13 Entero/Rhino (PCR) Not Detected (NotDetected) 05/05/23 00:13 Code Status & VTE Plan Code Status Full code VTE Prophylaxis Plan VTE Prophylaxis will be ordered: Yes PG Care Time/CCT Total # of Minutes Spent Total Time Spent with Patient: Total time spent is greater than 50% in coordination of care (as documented) at patient's floor/unit and/or counseling patient: Coding Level of Care Code 71817 INT INP/OBS CARE 3/75MIN Diagnoses Hyponatremia E87.1 Neuropathy G62.9 Abnormal LFTs R79.89 Chest pain R07.9 Alcohol abuse F10.10 NSTEMI (non-ST elevated myocardial infarction) I21.4 PAF (paroxysmal atrial fibrillation) I48.0 Chronic systolic congestive heart failure, NYHA class 2 I50.22 Non-ischemic cardiomyopathy I42.8 HTN (hypertension) I10 Encephalopathy G93.40
[2023-05-05] MEDS ORDERED: NITROGLYCERIN SL 0.4 MG/TAB TAB SL PRN (06:22)
[2023-05-05] MEDS ORDERED: DEXTROSE 50% 50 ML SYRINGE IV PRN (06:22)
[2023-05-05] MEDS ORDERED: GLUCAGON FOR INJ 1 MG VIAL SQ PRN (06:22)
[2023-05-05] MEDS ORDERED: LORazepam 1 MG in SYRINGE 0.5 ML IV PRN (06:22)
[2023-05-05] MEDS ORDERED: Ativan IV Alcohol Withdrawal--Active Protocol IV PRN (06:22)
[2023-05-05] MEDS ORDERED: ONDANSETRON INJ 2 MG/ML 2 ML VIAL IV PRN (06:22)
[2023-05-05] MEDS ORDERED: GLUCOSE 10 TAB/TUBE PO PRN (06:22)
[2023-05-05] MEDS ORDERED: LORazepam 3 MG in SYRINGE 1.5 ML IV PRN (06:22)
[2023-05-05] MEDS ORDERED: GLUCOSE 40% GEL 15 GM TUBE PO PRN (06:22)
[2023-05-05] MEDS ORDERED: LORazepam 2 MG in SYRINGE 1 ML IV PRN (06:22)
--- NOTE | 2023-05-05 06:46 | CT Scan Report ---
CT head/brain wo con CLINICAL HISTORY: 73 years-old Male with confused and disoriented. Acutely altered mental status TECHNIQUE: Multiple axial CT images of the head were obtained without contrast. A dose lowering tech nique was utilized adhering to the principles of ALARA. CT DOSE: 625.8 mGy.cm COMPARISON: 08/02/2022 FINDINGS: No acute intracranial hemorrhage, midline shift, intracranial mass, hydrocephalus, territorial ischem ia or abnormal extra-axial collection. Involutional changes with chronic microvascular ischemic disea se. Calcifications of the falx cerebri. The calvarium is intact. The paranasal sinuses, mastoid air cells, and middle ear cavities are clear . IMPRESSION: No acute intracranial abnormality. ACT 112: Negative or not required by law. The above report was generated using voice recognition software. It may contain grammatical, syntax o r spelling errors. Electronically signed by: Gino Wagner M.D. 05/05/2023 6:44 AM
[2023-05-05] MEDS: LEVOTHYROXINE SODIUM 25 MCG TABLET PO SCH (07:11)
[2023-05-05 07:53] LABS: BUN Creatinine Ratio 25.7 (10-20); Calcium 8.4 mg/dl (8.6-10.3); Creatinine Clr Calc Pharmacy 46.1 ml/min; Est GFR (African American) 57.8 ml/min; Est GFR (Non-African American) 49.8 ml/min; Potassium 3.4 mmol/L (3.5-5.1)
--- NOTE | 2023-05-05 07:55 | XRay Report ---
XR chest 1V portable HISTORY: 73 years-old Male Dyspnea acute shortness of breath COMPARISON: 01/31/2023 TECHNIQUE: AP view of the chest FINDINGS: Cardiac silhouette is enlarged. Atherosclerosis of the aorta. Trace left pleural effusion. No lobar a irspace consolidation. No pneumothorax or overt pulmonary edema. Bones appear grossly intact. IMPRESSION: 1. Cardiomegaly without overt pulmonary edema. 2. Trace left pleural effusion. ACT 112: Negative or not required by law. The above report was generated using voice recognition software. It may contain grammatical, syntax o r spelling errors. Electronically signed by: Gino Wagner M.D. 05/05/2023 7:53 AM
[2023-05-05 08:38] LABS: Albumin Globulin Ratio 1.1 (0.9-2); Albumin Level 3.4 gm/dl (3.4-5.0); Bilirubin,Total 2.1 mg/dl (0.2-1.0); Magnesium 2.6 mg/dl (1.7-2.4); Total Protein 6.4 gm/dl (6.0-8.3)
[2023-05-05] MEDS: INSULIN ASPART PER UNIT CHARGE SC SCH ×4 (08:43→20:22)
[2023-05-05] MEDS: FLUTICASONE/VILANTEROL 200/25MCG 14 PUFFS/INHALER INH SCH (08:44)
[2023-05-05] MEDS: ENALAPRIL MALEATE 10 MG TAB PO SCH (08:45)
[2023-05-05] MEDS: POTASSIUM CHLORIDE 10 MEQ TABCR PO SCH (08:45)
[2023-05-05] MEDS: METOPROLOL SUCC 50MG EXT REL TAB PO SCH (08:46)
[2023-05-05] MEDS: THIAMINE HCL 100 MG TAB PO SCH (08:46)
[2023-05-05] MEDS: GABAPENTIN 100 MG CAP PO SCH ×3 (08:47→20:22)
[2023-05-05] MEDS: APIXABAN 5 MG TABLET PO SCH ×2 (08:47→20:22)
[2023-05-05] MEDS: FOLIC ACID 1 MG TAB PO SCH (08:47)
[2023-05-05] MEDS: FUROSEMIDE 40 MG/4 ML VIAL IV SCH (08:49)
[2023-05-05] MEDS: CLOPIDOGREL BISULFATE 75 MG TAB PO SCH (08:49)
--- NOTE | 2023-05-05 09:12 | Hospitalist Progress Note ---
Date of Service May 05, 2023 Assessment & Plan (1) Encephalopathy: Plan: metabolic encephalopathy, from hyponatremia, abd imaging suggest possibe cystitis and proctocholitis no leukocytosis, urine culture blood cultures start zosyn correct sodium (2) Hyponatremia: Plan: Sodium 125->126, serum osmolality 279, urine osmolality low such maybe trying to correct May be an element of beer Potomania Fluid restrict, (3) Abnormal LFTs: Plan: pt with history of alcohol exposure and illness, will follow with treatment with alcohol abuse Alcohol level less than 10 on admission Placed on AWSS protocol with IV Ativan Give thiamine 500 mg IV x1 in the ED along with folic acid 1 mg IV Continue thiamine 100 mg orally every morning and folic acid 1 mg every morning (4) NSTEMI (non-ST elevated myocardial infarction): Plan: Elevated troponin/chronic systolic CHF/PAF/nonischemic cardiomyopathy/hypertension- Troponin initially 77.8, with follow-up 73.7 Most recent echo on 01/30/2023, with ejection fraction 25-30% acute on chronic systolic heart failure , non ischemic cardiomyopathy, atorvastatin, clopidogrel, farxiga Give furosemide 40 mg IV daily Continue apixaban, clopidogrel, enalapril and metoprolol succinate Serial renal function panel and magnesium levels (5) PAF (paroxysmal atrial fibrillation): Plan: rate controlled with metoprolol and anticoagulated with apixiban (6) T2DM (type 2 diabetes mellitus): Plan: insulin and farxiga Admission and Anticipated Discharge Date Admission Date: May 05, 2023 Subjective pt is gruff but cordial no focal complaints maybe a bit confused but could be low sodium Physical Exam Physical Exam: awake and oriented cardiac exam is regular lungs are diminished at the bases, some basilar crackles ext with trace edema Results & Data Results & Data Vital Signs (Past 12 Hours) Vital Signs Temp Pulse Pulse Resp BP BP BP 05/05/23 07:00 97.9 F 109 H 19 156/97 H 05/05/23 06:22 97.0 F L 110 H 20 109/72 05/05/23 06:00 05/05/23 04:00 105 H 20 135/95 05/05/23 02:16 103 H 05/05/23 02:00 106 H 20 149/102 H 05/05/23 00:00 103 H 22 136/97 05/04/23 23:06 109 H 05/04/23 22:14 22 05/04/23 22:14 05/04/23 22:14 98.4 F 107 H 20 134/107 H 05/04/23 22:14 05/04/23 22:12 104 H Pulse Ox O2 Del Method O2 Flow Rate 05/05/23 07:00 97 Room Air 05/05/23 06:22 94 Room Air 05/05/23 06:00 Room Air 05/05/23 04:00 97 05/05/23 02:16 05/05/23 02:00 99 Room Air 05/05/23 00:00 97 05/04/23 23:06 98 Nasal Cannula 2 05/04/23 22:14 99 Nasal Cannula 2 05/04/23 22:14 99 Nasal Cannula 2 05/04/23 22:14 98 Nasal Cannula 2 05/04/23 22:14 Nasal Cannula 2 05/04/23 22:12 Laboratory Results reviewed CBC reviewed chemistry PG Care Time/CCT Total # of Minutes Spent Total Time Spent with Patient: Total time spent is greater than 50% in coordination of care (as documented) at patient's floor/unit and/or counseling patient: Coding Level of Care Code None Diagnoses Encephalopathy G93.40 Hyponatremia E87.1 Abnormal LFTs R79.89 NSTEMI (non-ST elevated myocardial infarction) I21.4 PAF (paroxysmal atrial fibrillation) I48.0 T2DM (type 2 diabetes mellitus) E11.9
[2023-05-05 09:27] LABS: Appearance Urine Cloudy (Clear); Bacteria Urine Automated Negative (Negative); Bilirubin Urine Negative (Negative); Blood Urine Negative (Negative); Color Urine Yellow; Epithelial Cell Urine Auto 0-5 /lpf (0-5); Glucose Urine UA Negative (Negative); Ketones Urine Negative (Negative); Leukocyte Esterase Urine Negative (Negative); Nitrite Urine Negative (Negative); Protein Urine 2+ (Negative); RBC Urine Automated 0-4 /hpf (0-4); Urobilinogen Urine Negative (Negative); WBC Urine Automated 0 /hpf (0-5); pH Urine 5.5 (4.5-7.5)
[2023-05-05 09:54] LABS: Adenovirus F 40/41 PCR Not Detected (NotDetected); Astrovirus PCR Not Detected (NotDetected); Campylobacter PCR Not Detected (NotDetected); Cryptosporidium PCR Not Detected (NotDetected); Cyclospora cayetanensis PCR Not Detected (NotDetected); Entamoeba histolytica PCR Not Detected (NotDetected); Enteroaggregative E.coli(EAEC) Not Detected (NotDetected); Enteropathogenic E.coli (EPEC) Not Detected (NotDetected); Enterotoxigenic E.coli (ETEC) Not Detected (NotDetected); Giardia lamblia PCR Not Detected (NotDetected); Norovirus GI/GII PCR Not Detected (NotDetected); Plesiomonas shigelloides PCR Not Detected (NotDetected); Rotavirus A PCR Not Detected (NotDetected); Salmonella PCR Not Detected (NotDetected); Sapovirus PCR Not Detected (NotDetected); Shiga-like Toxin E.coli (STEC) Not Detected (NotDetected); Shigella/Enteroinvasive E.coli Not Detected (NotDetected); Vibrio cholerae PCR Not Detected (NotDetected); Vibrio species PCR Not Detected (NotDetected); Yersinia enterocolitica PCR Not Detected (NotDetected)
[2023-05-05] MEDS ORDERED: PIPER/TAZO 4.5g in D5W MINI-B 100 ML IV ONE (11:15)
[2023-05-05] MEDS: ATORVASTATIN 40 MG TAB PO SCH (12:32)
--- NOTE | 2023-05-05 13:02 | Electrocardiogram Report ---
Test Reason : Blood Pressure : / mmHG Vent. Rate : 107 BPM Atrial Rate : 117 BPM P-R Int : 000 ms QRS Dur : 116 ms QT Int : 330 ms P-R-T Axes : 000 -70 123 degrees QTc Int : 440 ms Poor data quality, interpretation may be adversely affected Atrial fibrillation with rapid ventricular response Left anterior fascicular block Anterior infarct , age undetermined Abnormal ECG When compared with ECG of 30-JAN-2023 08:09, Anterior infarct is now Present ST no longer depressed in Lateral leads T wave inversion less evident in Lateral leads Confirmed by Cedric Child ([id number]) on 05/05/2023 1:01:46 PM Referred By: REFERRED SELF Confirmed By:Cedric Child
[2023-05-05] MEDS: PIPERACILLIN/TAZOBACTAM 4.5 GM in DEXTROSE 5% MINI-B 100 ML IV SCH (17:47)
[2023-05-06] MEDS: PIPERACILLIN/TAZOBACTAM 4.5 GM in DEXTROSE 5% MINI-B 100 ML IV SCH ×3 (01:22→17:15)
[2023-05-06] MEDS: LEVOTHYROXINE SODIUM 25 MCG TABLET PO SCH (05:28)
[2023-05-06] MEDS: INSULIN ASPART PER UNIT CHARGE SC SCH ×4 (07:56→20:05)
[2023-05-06 08:03] LABS: Basophils # (auto) 0.06 K/uL (0.00-0.20); Eosinophils # (auto) 0.23 K/uL (0.00-0.50); Eosinophils % (auto) 3.7 %; Hematocrit (blood only) 38.4 % (42.0-52.0); Hemoglobin 13.1 g/dl (14.0-18.0); Immature Granulocytes # (auto) 0.03 K/uL (0.01-0.20); Immature Granulocytes % (auto) 0.5 %; Lymphocytes % (auto) 19.2 %; Mean Corpuscular Hgb Conc 34.1 g/dL (32.0-36.0); Mean Corpuscular Volume 87.9 fL (80.0-100.0); Monocytes # (auto) 0.77 K/uL (0.11-0.59); Monocytes % (auto) 12.3 %; Neutrophils # (auto) 3.97 K/uL (1.40-6.50); Neutrophils % (auto) 63.3 %; Platelet Count 150 K/uL (130-400); RDW Coefficient of Variation 13.3 % (11.5-14.5); RDW Standard Deviation 43.2 fL (36.4-46.3); Red Blood Count 4.37 M/uL (4.70-6.10); White Blood Count 6.26 K/ul (4.8-10.8)
[2023-05-06 08:22] LABS: Albumin Globulin Ratio 1.1 (0.9-2); Albumin Level 3.2 gm/dl (3.4-5.0); BUN Creatinine Ratio 25.3 (10-20); Creatinine Clr Calc Pharmacy 43.1 ml/min; Est GFR (African American) 53.1 ml/min; Est GFR (Non-African American) 45.9 ml/min; Globulin 2.8 gm/dl (2.5-4.0); Magnesium 2.3 mg/dl (1.7-2.4); Potassium 3.3 mmol/L (3.5-5.1)
--- NOTE | 2023-05-06 08:26 | Hospitalist Progress Note ---
Date of Service May 06, 2023 Assessment & Plan (1) Encephalopathy: Plan: metabolic encephalopathy, from hyponatremia, abd imaging suggest possible cystitis and proctocolitis no leukocytosis, urine culture pending at this time blood cultures negative to date continues on zosyn for concerns of cystitis and proctocolitis sodium is moving in the right direction (2) Hyponatremia: Plan: Sodium 125->126, serum osmolality 279, urine osmolality low such maybe trying to correct May be an element of beer Potomania Fluid restrict, patient remains on Lasix as his volume overloaded at this time replete low potassium (3) Abnormal LFTs: Plan: pt with history of alcohol exposure and illness, improving with alcohol abuse Alcohol level less than 10 on admission Placed on AWSS protocol with IV Ativan Give thiamine 500 mg IV x1 in the ED along with folic acid 1 mg IV Continue thiamine 100 mg orally every morning and folic acid 1 mg every morning (4) NSTEMI (non-ST elevated myocardial infarction): Plan: Elevated troponin/chronic systolic CHF/PAF/nonischemic cardiomyopathy/hypertension- Troponin initially 77.8, with follow-up 73.7 nstemi ruled out more likely demand ischemia Most recent echo on 01/30/2023, with ejection fraction 25-30% acute on chronic systolic heart failure , non ischemic cardiomyopathy, atorvastatin, clopidogrel, farxiga Give furosemide 40 mg p.o. daily Continue apixaban, clopidogrel, enalapril and metoprolol succinate Serial renal function panel and magnesium levels (5) PAF (paroxysmal atrial fibrillation): Plan: rate controlled with metoprolol and anticoagulated with apixiban (6) T2DM (type 2 diabetes mellitus): Plan: insulin and farxiga Plan transfer [facility] reviewed all orders and meds prior to transfer Admission and Anticipated Discharge Date Admission Date: May 05, 2023 Subjective pt is gruff but cordial no focal complaints maybe a bit confused Physical Exam Physical Exam: awake and oriented cardiac exam is regular lungs are diminished at the bases, some basilar crackles ext with trace edema Results & Data Results & Data Vital Signs (Past 12 Hours) Vital Signs Temp Pulse Pulse Resp BP Pulse Ox O2 Del Method 05/06/23 07:53 97.3 F L 81 18 106/74 95 Room Air 05/06/23 04:00 97.5 F L 68 18 118/86 96 Room Air 11/10/23 23:00 97.5 F L 80 20 120/81 97 Room Air 05/05/23 22:00 76 Laboratory Results reviewed CBC reviewed chemistry ordered repletion for hypokalemia PG Care Time/CCT Total # of Minutes Spent Total Time Spent with Patient: Total time spent is greater than 50% in coordination of care (as documented) at patient's floor/unit and/or counseling patient: Coding Level of Care Code 69467 SUB INP/OBS CARE 3/50MIN Diagnoses Encephalopathy G93.40 Hyponatremia E87.1 Abnormal LFTs R79.89 NSTEMI (non-ST elevated myocardial infarction) I21.4 PAF (paroxysmal atrial fibrillation) I48.0 T2DM (type 2 diabetes mellitus) E11.9
[2023-05-06 08:55] LABS: Estimated Average Glucose 166 mg/dl; Hemoglobin A1C 7.4 % (4.5-5.6)
[2023-05-06] MEDS: APIXABAN 5 MG TABLET PO SCH ×2 (09:20→20:09)
[2023-05-06] MEDS: FOLIC ACID 1 MG TAB PO SCH (09:20)
[2023-05-06] MEDS: POTASSIUM CHLORIDE 10 MEQ TABCR PO SCH (09:20)
[2023-05-06] MEDS: METOPROLOL SUCC 50MG EXT REL TAB PO SCH (09:20)
[2023-05-06] MEDS: GABAPENTIN 100 MG CAP PO SCH ×3 (09:20→20:08)
[2023-05-06] MEDS: ATORVASTATIN 40 MG TAB PO SCH (09:20)
[2023-05-06] MEDS: CLOPIDOGREL BISULFATE 75 MG TAB PO SCH (09:20)
[2023-05-06] MEDS: THIAMINE HCL 100 MG TAB PO SCH (09:20)
[2023-05-06] MEDS: ENALAPRIL MALEATE 10 MG TAB PO SCH (09:20)
[2023-05-06] MEDS: FLUTICASONE/VILANTEROL 200/25MCG 14 PUFFS/INHALER INH SCH (09:21)
[2023-05-06] MEDS: FUROSEMIDE 40 MG/4 ML VIAL IV SCH (09:21)
[2023-05-06] MEDS ORDERED: POTASSIUM CHLORIDE CRTAB 20 MEQ TABCR PO STA (14:03)
[2023-05-07] MEDS: PIPERACILLIN/TAZOBACTAM 4.5 GM in DEXTROSE 5% MINI-B 100 ML IV SCH ×3 (01:27→16:53)
[2023-05-07] MEDS: LEVOTHYROXINE SODIUM 25 MCG TABLET PO SCH (05:55)
[2023-05-07 06:24] LABS: Basophils # (auto) 0.09 K/uL (0.00-0.20); Basophils % (auto) 1.4 %; Eosinophils # (auto) 0.31 K/uL (0.00-0.50); Hematocrit (blood only) 39.7 % (42.0-52.0); Hemoglobin 13.9 g/dl (14.0-18.0); Immature Granulocytes # (auto) 0.03 K/uL (0.01-0.20); Immature Granulocytes % (auto) 0.5 %; Lymphocytes % (auto) 24.1 %; Mean Corpuscular Hemoglobin 30.3 pg (25.0-34.0); Mean Corpuscular Volume 86.7 fL (80.0-100.0); Mean Platelet Volume 11.2 fL (9.4-12.4); Monocytes # (auto) 0.77 K/uL (0.11-0.59); Monocytes % (auto) 12.4 %; Neutrophils # (auto) 3.53 K/uL (1.40-6.50); Neutrophils % (auto) 56.6 %; Platelet Count 151 K/uL (130-400); RDW Coefficient of Variation 14.5 % (11.5-14.5); RDW Standard Deviation 45.9 fL (36.4-46.3); Red Blood Count 4.58 M/uL (4.70-6.10); White Blood Count 6.23 K/ul (4.8-10.8)
[2023-05-07 06:36] LABS: Albumin Globulin Ratio 1.1 (0.9-2); Albumin Level 3.2 gm/dl (3.4-5.0); BUN Creatinine Ratio 23.8 (10-20); Bilirubin,Total 1.7 mg/dl (0.2-1.0); Calcium 8.6 mg/dl (8.6-10.3); Creatinine Clr Calc Pharmacy 38.5 ml/min; Est GFR (African American) 46.3 ml/min; Globulin 2.8 gm/dl (2.5-4.0); Magnesium 2.3 mg/dl (1.7-2.4); Potassium 3.2 mmol/L (3.5-5.1)
[2023-05-07] MEDS: THIAMINE HCL 100 MG TAB PO SCH (07:56)
[2023-05-07] MEDS: FOLIC ACID 1 MG TAB PO SCH (07:56)
[2023-05-07] MEDS: GABAPENTIN 100 MG CAP PO SCH ×3 (07:56→20:41)
[2023-05-07] MEDS: ATORVASTATIN 40 MG TAB PO SCH (07:57)
[2023-05-07] MEDS: ENALAPRIL MALEATE 10 MG TAB PO SCH (07:57)
[2023-05-07] MEDS: CLOPIDOGREL BISULFATE 75 MG TAB PO SCH (07:57)
[2023-05-07] MEDS: POTASSIUM CHLORIDE 10 MEQ TABCR PO SCH (07:57)
[2023-05-07] MEDS: APIXABAN 5 MG TABLET PO SCH ×2 (07:57→20:41)
[2023-05-07] MEDS: METOPROLOL SUCC 50MG EXT REL TAB PO SCH (07:58)
[2023-05-07] MEDS: FLUTICASONE/VILANTEROL 200/25MCG 14 PUFFS/INHALER INH SCH (07:58)
[2023-05-07] MEDS: INSULIN ASPART PER UNIT CHARGE SC SCH ×4 (08:03→20:42)
[2023-05-07] MEDS: POTASSIUM CHLORIDE CRTAB 20 MEQ TABCR PO SCH ×2 (08:45→20:42)
--- NOTE | 2023-05-07 17:04 | Hospitalist Progress Note ---
Date of Service May 07, 2023 Assessment & Plan (1) Encephalopathy: Plan: metabolic encephalopathy, from hyponatremia, abd imaging suggest possible cystitis and proctocolitis no leukocytosis, urine culture negative blood cultures negative to date stop zosyn, assure bowel movement s sodium continues moving in the right direction (2) Hyponatremia: Plan: Sodium 125->126, serum osmolality 279, urine osmolality low such maybe trying to correct May be an element of beer Potomania Fluid restrict, now AZRA with CKD3, stop diuretics, sodium is improving replete K+ and follow labs (3) Abnormal LFTs: Plan: pt with history of alcohol exposure and illness, improving with alcohol abuse Alcohol level less than 10 on admission Placed on AWSS protocol with IV Ativan Give thiamine 500 mg IV x1 in the ED along with folic acid 1 mg IV Continue thiamine 100 mg orally every morning and folic acid 1 mg every morning (4) NSTEMI (non-ST elevated myocardial infarction): Plan: Elevated troponin/chronic systolic CHF/PAF/nonischemic cardiomyopathy/hypertension- Troponin initially 77.8, with follow-up 73.7 nstemi ruled out more likely demand ischemia Most recent echo on 01/30/2023, with ejection fraction 25-30% acute on chronic systolic heart failure , non ischemic cardiomyopathy, atorvastatin, clopidogrel, farxiga holding lasix Continue apixaban, clopidogrel, enalapril and metoprolol succinate Serial renal function panel and magnesium levels (5) PAF (paroxysmal atrial fibrillation): Plan: rate controlled with metoprolol and anticoagulated with apixiban (6) T2DM (type 2 diabetes mellitus): Plan: insulin and farxiga Plan transfer to [facility] reviewed all orders and meds prior to transfer Admission and Anticipated Discharge Date Admission Date: May 05, 2023 Subjective pt is more pleasant and conversant understands why he is here Physical Exam Physical Exam: awake and oriented cardiac exam is regular lungs are diminished at the bases, some basilar crackles ext with trace edema Results & Data Results & Data Vital Signs (Past 12 Hours) Vital Signs Temp Pulse Resp BP BP Pulse Ox O2 Del Method 05/07/23 15:08 97.5 F L 66 18 120/77 93 Room Air 05/07/23 07:18 97.5 F L 57 L 16 121/80 93 Room Air Laboratory Results reviewed cbc reviewed chemistry PG Care Time/CCT Total # of Minutes Spent Total Time Spent with Patient: Total time spent is greater than 50% in coordination of care (as documented) at patient's floor/unit and/or counseling patient: Coding Level of Care Code 83388 SUB INP/OBS CARE 3/50MIN Diagnoses Encephalopathy G93.40 Hyponatremia E87.1 Abnormal LFTs R79.89 NSTEMI (non-ST elevated myocardial infarction) I21.4 PAF (paroxysmal atrial fibrillation) I48.0 T2DM (type 2 diabetes mellitus) E11.9
[2023-05-07] MEDS ORDERED: POLYETHYLENE (MIRALAX) 17 GM PACK PO ONE (17:05)
[2023-05-07] MEDS: ALBUTEROL HFA 8 GM INHALER INH PRN (20:08)
[2023-05-07] MEDS: FAMOTIDINE 20 MG TAB PO PRN (22:57)
[2023-05-08] MEDS: PIPERACILLIN/TAZOBACTAM 4.5 GM in DEXTROSE 5% MINI-B 100 ML IV SCH ×3 (00:33→17:31)
[2023-05-08] MEDS: LEVOTHYROXINE SODIUM 25 MCG TABLET PO SCH (05:27)
[2023-05-08 06:26] LABS: Basophils # (auto) 0.11 K/uL (0.00-0.20); Basophils % (auto) 1.8 %; Eosinophils # (auto) 0.33 K/uL (0.00-0.50); Eosinophils % (auto) 5.4 %; Hematocrit (blood only) 38.9 % (42.0-52.0); Hemoglobin 13.5 g/dl (14.0-18.0); Immature Granulocytes # (auto) 0.03 K/uL (0.01-0.20); Immature Granulocytes % (auto) 0.5 %; Lymphocytes # (auto) 1.55 K/uL (1.20-3.40); Lymphocytes % (auto) 25.5 %; Mean Corpuscular Hemoglobin 30.3 pg (25.0-34.0); Mean Corpuscular Hgb Conc 34.7 g/dL (32.0-36.0); Mean Corpuscular Volume 87.4 fL (80.0-100.0); Monocytes # (auto) 0.71 K/uL (0.11-0.59); Monocytes % (auto) 11.7 %; Neutrophils # (auto) 3.36 K/uL (1.40-6.50); Neutrophils % (auto) 55.1 %; Platelet Count 170 K/uL (130-400); RDW Coefficient of Variation 14.4 % (11.5-14.5); RDW Standard Deviation 45.6 fL (36.4-46.3); Red Blood Count 4.45 M/uL (4.70-6.10); White Blood Count 6.09 K/ul (4.8-10.8)
[2023-05-08 06:41] LABS: Albumin Globulin Ratio 1.1 (0.9-2); Albumin Level 3.1 gm/dl (3.4-5.0); BUN Creatinine Ratio 20.9 (10-20); Bilirubin,Total 1.4 mg/dl (0.2-1.0); Calcium 8.2 mg/dl (8.6-10.3); Creatinine Clr Calc Pharmacy 36.5 ml/min; Est GFR (African American) 43.5 ml/min; Est GFR (Non-African American) 37.5 ml/min; Globulin 2.9 gm/dl (2.5-4.0); Magnesium 2.3 mg/dl (1.7-2.4); Potassium 3.9 mmol/L (3.5-5.1)
[2023-05-08] MEDS: POTASSIUM CHLORIDE CRTAB 20 MEQ TABCR PO SCH (08:01)
[2023-05-08] MEDS: APIXABAN 5 MG TABLET PO SCH ×2 (08:02→20:15)
[2023-05-08] MEDS: CLOPIDOGREL BISULFATE 75 MG TAB PO SCH (08:02)
[2023-05-08] MEDS: THIAMINE HCL 100 MG TAB PO SCH ×2 (08:02→10:05)
[2023-05-08] MEDS: METOPROLOL SUCC 50MG EXT REL TAB PO SCH (08:02)
[2023-05-08] MEDS: FOLIC ACID 1 MG TAB PO SCH (08:02)
[2023-05-08] MEDS: ATORVASTATIN 40 MG TAB PO SCH (08:02)
[2023-05-08] MEDS: GABAPENTIN 100 MG CAP PO SCH ×3 (08:02→20:15)
[2023-05-08] MEDS: FLUTICASONE/VILANTEROL 200/25MCG 14 PUFFS/INHALER INH SCH (08:03)
[2023-05-08] MEDS: POLYETHYLENE (MIRALAX) 17 GM PACK PO SCH (08:07)
[2023-05-08] MEDS: INSULIN ASPART PER UNIT CHARGE SC SCH ×4 (08:12→20:40)
[2023-05-08] MEDS ORDERED: STAT IV/IM STA ×2 (09:58→19:03)
[2023-05-08] MEDS ORDERED: SODIUM CHLORIDE 3 % 100 ML IV ONE ×2 (09:58→19:03)
[2023-05-08 15:55] LABS: BUN Creatinine Ratio 19.7 (10-20); Calcium 8.6 mg/dl (8.6-10.3); Creatinine Clr Calc Pharmacy 35.3 ml/min; Est GFR (African American) 41.8 ml/min; Est GFR (Non-African American) 36.1 ml/min; Potassium 4.2 mmol/L (3.5-5.1)
--- NOTE | 2023-05-08 19:10 | Hospitalist Progress Note ---
Date of Service May 08, 2023 Assessment & Plan (1) Encephalopathy: Plan: metabolic encephalopathy, from hyponatremia, abd imaging suggest possible cystitis and proctocolitis no leukocytosis, urine culture negative blood cultures negative to date stop zosyn, assure bowel movement s sodium now fallling, will check s osm, usom and urine NA, seems slightly volume overloaded (2) Hyponatremia: Plan: Sodium 125->126, serum osmolality 279, urine osmolality low such maybe trying to correct Fluid restrict, now to 1500 hypertonic saline given x 2, repeat osms now AZRA with CKD3, stopped diuretics, (3) Abnormal LFTs: Plan: pt with history of alcohol exposure and illness, improving with alcohol abuse Alcohol level less than 10 on admission Placed on AWSS protocol with IV Ativan Give thiamine 500 mg IV x1 in the ED along with folic acid 1 mg IV Continue thiamine 100 mg orally every morning and folic acid 1 mg every morning (4) NSTEMI (non-ST elevated myocardial infarction): Plan: Elevated troponin/chronic systolic CHF/PAF/nonischemic cardiomyopa thy/hypertension- Troponin initially 77.8, with follow-up 73.7 nstemi ruled out more likely demand ischemia Most recent echo on 01/30/2023, with ejection fraction 25-30% acute on chronic systolic heart failure , non ischemic cardiomyopathy, atorvastatin, clopidogrel, farxiga holding lasix Continue apixaban, clopidogrel, enalapril and metoprolol succinate Serial renal function panel and magnesium levels (5) PAF (paroxysmal atrial fibrillation): Plan: rate controlled with metoprolol and anticoagulated with apixiban (6) T2DM (type 2 diabetes mellitus): Plan: insulin and farxiga Plan transfer to [facility] reviewed all orders and meds prior to transfer Admission and Anticipated Discharge Date Admission Date: May 05, 2023 Subjective pt is more pleasant and conversant understands why he is here is complaining of some peripheral edema but has hyponatremia Physical Exam Physical Exam: awake and oriented cardiac exam is regular lungs are diminished at the bases, some basilar crackles ext with trace edema Results & Data Results & Data Vital Signs (Past 12 Hours) Vital Signs Temp Pulse Resp BP Pulse Ox O2 Del Method 05/08/23 18:28 68 20 98 Room Air 05/08/23 14:21 97.2 F L 69 15 121/80 96 Room Air 05/08/23 10:53 67 20 120/76 98 Room Air 05/08/23 10:41 97.3 F L 69 20 109/72 96 Room Air 05/08/23 07:15 97.3 F L 66 16 121/73 100 Room Air PG Care Time/CCT Total # of Minutes Spent Total Time Spent with Patient: Total time spent is greater than 50% in coordination of care (as documented) at patient's floor/unit and/or counseling patient: Coding Level of Care Code 68196 SUB INP/OBS CARE 3/50MIN Diagnoses Encephalopathy G93.40 Hyponatremia E87.1 Abnormal LFTs R79.89 NSTEMI (non-ST elevated myocardial infarction) I21.4 PAF (paroxysmal atrial fibrillation) I48.0 T2DM (type 2 diabetes mellitus) E11.9
[2023-05-09] MEDS: PIPERACILLIN/TAZOBACTAM 4.5 GM in DEXTROSE 5% MINI-B 100 ML IV SCH ×3 (00:44→17:13)
[2023-05-09] MEDS: LEVOTHYROXINE SODIUM 25 MCG TABLET PO SCH (06:15)
[2023-05-09] MEDS: CLOPIDOGREL BISULFATE 75 MG TAB PO SCH (08:19)
[2023-05-09] MEDS: GABAPENTIN 100 MG CAP PO SCH ×3 (08:19→20:14)
[2023-05-09] MEDS: THIAMINE HCL 100 MG TAB PO SCH (08:19)
[2023-05-09] MEDS: ATORVASTATIN 40 MG TAB PO SCH (08:19)
[2023-05-09] MEDS: FOLIC ACID 1 MG TAB PO SCH (08:19)
[2023-05-09] MEDS: METOPROLOL SUCC 50MG EXT REL TAB PO SCH (08:19)
[2023-05-09] MEDS: APIXABAN 5 MG TABLET PO SCH ×2 (08:20→20:14)
[2023-05-09] MEDS: FLUTICASONE/VILANTEROL 200/25MCG 14 PUFFS/INHALER INH SCH (08:20)
[2023-05-09] MEDS: POLYETHYLENE (MIRALAX) 17 GM PACK PO SCH (08:21)
[2023-05-09] MEDS: INSULIN ASPART PER UNIT CHARGE SC SCH ×4 (08:25→20:29)
[2023-05-09 09:32] LABS: Hematocrit (blood only) 40.4 % (42.0-52.0); Hemoglobin 13.6 g/dl (14.0-18.0); Mean Corpuscular Hemoglobin 30.4 pg (25.0-34.0); Mean Corpuscular Hgb Conc 33.7 g/dL (32.0-36.0); Mean Corpuscular Volume 90.4 fL (80.0-100.0); Mean Platelet Volume 11.3 fL (9.4-12.4); Platelet Count 157 K/uL (130-400); RDW Coefficient of Variation 14.5 % (11.5-14.5); RDW Standard Deviation 47.6 fL (36.4-46.3); Red Blood Count 4.47 M/uL (4.70-6.10); White Blood Count 5.33 K/ul (4.8-10.8)
[2023-05-09 09:48] LABS: BUN Creatinine Ratio 20.6 (10-20); Calcium 8.8 mg/dl (8.6-10.3); Creatinine Clr Calc Pharmacy 36.9 ml/min; Est GFR (African American) 44.1 ml/min; Est GFR (Non-African American) 38.1 ml/min; Magnesium 2.2 mg/dl (1.7-2.4); Potassium 4.2 mmol/L (3.5-5.1)
[2023-05-09] MEDS: FAMOTIDINE 20 MG TAB PO PRN (12:45)
[2023-05-09] MEDS ORDERED: ALUMINUM/MAGNESIUM SUSP 30 ML UDC PO PRN (12:51)
[2023-05-09] MEDS ORDERED: TOLVAPTAN 15 MG TABLET PO ONE (19:19)
[2023-05-09] MEDS ORDERED: STAT IV/IM STA (19:20)
[2023-05-09] MEDS ORDERED: SODIUM CHLORIDE 3 % 100 ML IV ONE (19:20)
--- NOTE | 2023-05-09 19:22 | Hospitalist Progress Note ---
Date of Service May 09, 2023 Assessment & Plan (1) Encephalopathy: Plan: metabolic encephalopathy, from hyponatremia, abd imaging suggest possible cystitis and proctocolitis no leukocytosis, urine culture negative blood cultures negative to date stop zosyn, assure bowel movement s (2) Hyponatremia: Plan: Sodium 125->126, serum osmolality now normal, urine osmolality low such maybe trying to correct and urine sodium is less than 10 Fluid restrict, now to 1500 hypertonic saline given x 2, additional hypertonic saline given the evening of 07/09 consider tolvaptan in the morning if sodium remains low now AZRA with CKD3, stopped diuretics, (3) Abnormal LFTs: Plan: pt with history of alcohol exposure and illness, continue improving with alcohol abuse Alcohol level less than 10 on admission Placed on AWSS protocol with IV Ativan Give thiamine 500 mg IV x1 in the ED along with folic acid 1 mg IV Continue thiamine 100 mg orally every morning and folic acid 1 mg every morning (4) NSTEMI (non-ST elevated myocardial infarction): Plan: Elevated troponin/chronic systolic CHF/PAF/nonischemic cardiomyopathy/hypertension- Troponin initially 77.8, with follow-up 73.7 nstemi ruled out more likely demand ischemia Most recent echo on 01/30/2023, with ejection fraction 25-30% acute on chronic systolic heart failure , non ischemic cardiomyopathy, atorvastatin, clopidogrel, farxiga holding lasix Continue apixaban, clopidogrel, enalapril and metoprolol succinate Serial renal function panel and magnesium levels (5) PAF (paroxysmal atrial fibrillation): Plan: rate controlled with metoprolol and anticoagulated with apixiban (6) T2DM (type 2 diabetes mellitus): Plan: insulin and farxiga Plan Admission and Anticipated Discharge Date Admission Date: May 05, 2023 Subjective pt is more pleasant and conversant understands why he is here is complaining of some peripheral edema but has persistent hyponatremia Physical Exam Physical Exam: awake and oriented cardiac exam is regular lungs are diminished at the bases, some basilar crackles ext with trace edema Results & Data Results & Data Vital Signs (Past 12 Hours) Vital Signs Temp Pulse Resp BP BP Pulse Ox O2 Del Method 05/09/23 14:46 96.1 F L 68 20 117/77 99 Room Air 05/09/23 08:30 Room Air 05/09/23 07:43 97.3 F L 70 18 122/76 97 Room Air Laboratory Results reviewed chemistry reviewed urine osmolality serum osmolality and urine sodium random PG Care Time/CCT Total # of Minutes Spent Total Time Spent with Patient: Total time spent is greater than 50% in coordination of care (as documented) at patient's floor/unit and/or counseling patient: Coding Level of Care Code 14482 SUB INP/OBS CARE 2/35MIN Diagnoses Encephalopathy G93.40 Hyponatremia E87.1 Abnormal LFTs R79.89 NSTEMI (non-ST elevated myocardial infarction) I21.4 PAF (paroxysmal atrial fibrillation) I48.0 T2DM (type 2 diabetes mellitus) E11.9
[2023-05-09] MEDS: ALBUTEROL HFA 8 GM INHALER INH PRN (21:59)
[2023-05-10] MEDS: PIPERACILLIN/TAZOBACTAM 4.5 GM in DEXTROSE 5% MINI-B 100 ML IV SCH ×3 (00:12→17:26)
[2023-05-10] MEDS: LEVOTHYROXINE SODIUM 25 MCG TABLET PO SCH (05:51)
[2023-05-10] MEDS: GABAPENTIN 100 MG CAP PO SCH ×3 (08:25→20:34)
[2023-05-10] MEDS: FOLIC ACID 1 MG TAB PO SCH (08:25)
[2023-05-10] MEDS: METOPROLOL SUCC 50MG EXT REL TAB PO SCH (08:26)
[2023-05-10] MEDS: POLYETHYLENE (MIRALAX) 17 GM PACK PO SCH (08:26)
[2023-05-10] MEDS: CLOPIDOGREL BISULFATE 75 MG TAB PO SCH (08:26)
[2023-05-10] MEDS: APIXABAN 5 MG TABLET PO SCH ×2 (08:27→20:34)
[2023-05-10] MEDS: THIAMINE HCL 100 MG TAB PO SCH (08:27)
[2023-05-10] MEDS: ATORVASTATIN 40 MG TAB PO SCH (08:27)
[2023-05-10] MEDS: FLUTICASONE/VILANTEROL 200/25MCG 14 PUFFS/INHALER INH SCH (08:27)
[2023-05-10] MEDS: INSULIN ASPART PER UNIT CHARGE SC SCH ×4 (08:28→20:35)
[2023-05-10 09:01] LABS: BUN Creatinine Ratio 18.3 (10-20); Calcium 9.1 mg/dl (8.6-10.3); Creatinine Clr Calc Pharmacy 33.8 ml/min; Est GFR (African American) 39.7 ml/min; Est GFR (Non-African American) 34.2 ml/min; Potassium 4.4 mmol/L (3.5-5.1)
[2023-05-10] MEDS: ACETAMINOPHEN 500 MG TAB PO PRN (13:05)
--- NOTE | 2023-05-10 16:17 | Hospitalist Progress Note ---
Date of Service May 10, 2023 Assessment & Plan (1) Encephalopathy: Plan: metabolic encephalopathy, from hyponatremia, abd imaging suggest possible cystitis and proctocolitis no leukocytosis, urine culture negative blood cultures negative to date stop zosyn, assure bowel movement sno worsening since stopping Zosyn Do not believe encephalopathy was from proctocolitis but more from hyponatremia (2) Hyponatremia: Plan: Sodium 125->126, serum osmolality now normal, urine osmolality low such maybe trying to correct and urine sodium is less than 10 Fluid restrict, now to 1500 hypertonic saline given x 3, last given the evening of 07/09 AZRA with CKD3, stopped diuretics, creatinine is slightly worsened but patient clinically improvedholding ISAIAS inhibitor/furosemide (3) Abnormal LFTs: Plan: pt with history of alcohol exposure and illness, continue improving with alcohol abuse Alcohol level less than 10 on admission Placed on AWSS protocol with IV Ativan Give thiamine 500 mg IV x1 in the ED along with folic acid 1 mg IV Continue thiamine 100 mg orally every morning and folic acid 1 mg every morning (4) NSTEMI (non-ST elevated myocardial infarction): Plan: Elevated troponin/chronic systolic CHF/PAF/nonischemic cardiomyopathy/hypertensi on- Troponin initially 77.8, with follow-up 73.7 *Myocardial infarction type 2 due to demand ischemia Most recent echo on 01/30/2023, with ejection fraction 25-30% acute on chronic systolic heart failure , non ischemic cardiomyopathy, atorvastatin, clopidogrel, farxiga holding lasix 05/07/23 Continue apixaban, clopidogrel, and metoprolol succinate (5) PAF (paroxysmal atrial fibrillation): Plan: rate controlled with metoprolol and anticoagulated with apixiban (6) T2DM (type 2 diabetes mellitus): Plan: insulin and farxiga Plan Patient recommended inpatient rehab by OT patient refused anticipate home with home health as long as renal function does not worsen and sodium is stable Admission and Anticipated Discharge Date Admission Date: May 05, 2023 Subjective pt has improved cognitively since being away from alcohol and now having improved sodium pt recommended rehab, pt refused and will permit home health Physical Exam Physical Exam: Patient is much more alert and conversant Peripheral edema has improved without diuretic therapy Card exam is regular lungs are clear Results & Data Results & Data Vital Signs (Past 12 Hours) Vital Signs Temp Pulse Resp BP BP Pulse Ox Pulse Ox 05/10/23 15:45 97.9 F 68 17 117/81 98 05/10/23 11:11 95 05/10/23 07:12 97.7 F 94 H 16 148/76 H 93 O2 Del Method O2 Flow Rate 05/10/23 15:45 Room Air 05/10/23 11:11 0 05/10/23 07:12 Room Air Laboratory Results Reviewed chemistry sodium 131 Reviewed [id number] glucose elevated at 200 PG Care Time/CCT Total # of Minutes Spent Total Time Spent with Patient: Total time spent is greater than 50% in coordination of care (as documented) at patient's floor/unit and/or counseling patient: Coding Level of Care Code 15375 SUB INP/OBS CARE 2/35MIN Diagnoses Encephalopathy G93.40 Hyponatremia E87.1 Abnormal LFTs R79.89 NSTEMI (non-ST elevated myocardial infarction) I21.4 PAF (paroxysmal atrial fibrillation) I48.0 T2DM (type 2 diabetes mellitus) E11.9
[2023-05-11] MEDS: LEVOTHYROXINE SODIUM 25 MCG TABLET PO SCH (05:43)
[2023-05-11] MEDS: ACETAMINOPHEN 500 MG TAB PO PRN (05:46)
[2023-05-11 07:54] LABS: BUN Creatinine Ratio 19.3 (10-20); Calcium 8.9 mg/dl (8.6-10.3); Creatinine Clr Calc Pharmacy 37.8 ml/min; Est GFR (African American) 45.4 ml/min; Est GFR (Non-African American) 39.1 ml/min; Potassium 4.3 mmol/L (3.5-5.1)
[2023-05-11] MEDS: THIAMINE HCL 100 MG TAB PO SCH (08:01)
[2023-05-11] MEDS: METOPROLOL SUCC 50MG EXT REL TAB PO SCH (08:01)
[2023-05-11] MEDS: APIXABAN 5 MG TABLET PO SCH (08:01)
[2023-05-11] MEDS: FOLIC ACID 1 MG TAB PO SCH (08:01)
[2023-05-11] MEDS: GABAPENTIN 100 MG CAP PO SCH ×3 (08:01→20:26)
[2023-05-11] MEDS: ATORVASTATIN 40 MG TAB PO SCH (08:01)
[2023-05-11] MEDS: FLUTICASONE/VILANTEROL 200/25MCG 14 PUFFS/INHALER INH SCH (08:01)
[2023-05-11] MEDS: CLOPIDOGREL BISULFATE 75 MG TAB PO SCH (08:02)
[2023-05-11] MEDS: POLYETHYLENE (MIRALAX) 17 GM PACK PO SCH (08:02)
[2023-05-11] MEDS: PIPERACILLIN/TAZOBACTAM 4.5 GM in DEXTROSE 5% MINI-B 100 ML IV SCH ×2 (08:05)
[2023-05-11] MEDS: INSULIN ASPART PER UNIT CHARGE SC SCH ×4 (08:44→20:27)
[2023-05-11] MEDS ORDERED: FUROSEMIDE INJ 20 MG/2 ML VIAL IV ONE (14:15)
[2023-05-11] MEDS ORDERED: FAMOTIDINE 20 MG in SYRINGE 3 ML IV ONE (14:15)
--- NOTE | 2023-05-11 14:18 | Hospitalist Progress Note ---
Date of Service May 11, 2023 Assessment & Plan (1) Encephalopathy: Plan: metabolic encephalopathy, from hyponatremia, abd imaging suggest possible cystitis and proctocolitis Ongoing it seems but improved according to his sister no leukocytosis, urine culture negative blood cultures negative to date stop zosyn which he was on for possible proctocolitis moving bowels KUB with possible ileus, with some indigestion, nausea-> resolved with moving bowels but make clears diet for now start Pepcid IV x 1 now and give pepcid po bid Do not believe encephalopathy was from proctocolitis but more from hyponatremia (2) Chest pain: Plan: indigestion ECG with some TWI lateral leads, troponin continues to trend downward since admission check ECHO resolved with moving bowels before gave nitro or pepcid (3) Chronic systolic congestive heart failure, NYHA class 2: Plan: EF reduced on ECHO 01/2023 at 25-30% with WMAs is with peripheral edema here and worsening hyponatremia-feel he is volume overloaded with acute on chronic HFrEF give lasix 20mg IV x 1 now, resume home lasix 40mg po daily tomorrow strict I/Os, daily weights, low sodium diet once taking solids (4) Nausea: Plan: related to ileus? indigestion Pepcid as above (5) Hyponatremia: Plan: Sodium 125 on admission, was up to 130 and now back to 127 Serum Osm high, Ur Na low at < 10, with volume overload was given hypertonic saline 1500mL Fluid restrict giving lasix as above AZRA with CKD3, stopped diuretics, creatinine was up and now back down to 1.7contine holding ISAIAS inhibitor but resume lasix as above (6) Abnormal LFTs: Plan: likely from EtOH hepatitis with alcohol abuse Alcohol level less than 10 on admission Placed on AWSS protocol with IV Ativan Give thiamine 500 mg IV x1 in the ED along with folic acid 1 mg IV Continue thiamine 100 mg orally every morning and folic acid 1 mg every morning (7) NSTEMI (non-ST elevated myocardial infarction): Plan: Elevated troponin/chronic systolic CHF/PAF/nonischemic cardiomyopathy/hypertension- Troponin initially 77.8, with follow-up 73.7 *Myocardial infarction type 2 due to demand ischemia Most recent echo on 01/30/2023, with ejection fraction 25-30% acute on chronic systolic heart failure , non ischemic cardiomyopathy, atorvastatin, clopidogrel, farxiga at home Continue apixaban, clopidogrel, and metoprolol succinate (8) PAF (paroxysmal atrial fibrillation): Plan: rate controlled with metoprolol and anticoagulated with apixiban (9) T2DM (type 2 diabetes mellitus): Plan: insulin and farxiga at home (10) Hypothyroidism: Plan: TSH 4.4 in 01/2023 continue home LT4 (25mcg? PCP note says to take 75 mcg but 25mcg on home list) and check TSH Plan Dispo-pt refusing short term rehab but would not be safe at home, remains confused, volume overloaded, not ready for discharge discussed care with sister on phone Admission and Anticipated Discharge Date Admission Date: May 05, 2023 Subjective Pt reports some nausea and abdominal cramping. Also reports chest pain. He then moved his bowels right after I examined him and reported all his symptoms went away. He was confused and had a hard time explaining himself but was oriented to person, place, month, year but not date. I discussed his care with his sister on the phone Physical Exam Constitutional: WD/WN, vitals as above Respiratory: normal respiratory effort, lungs clear to auscultation Cardiovascular: Rate/Rhythm: regular rate and + irregularly irregular Extremities: + edema (2+ pitting edema legs bilat) Gastrointestinal (Abdomen): normal bowel sounds, soft, nontender, no hepatosplenomegaly (mild distension) Psychiatric: Orientation: alert, oriented to person, oriented to place, oriented to time (only month, year) and cooperative Results & Data Results & Data Vital Signs (Past 12 Hours) Vital Signs Temp Pulse Resp BP Pulse Ox O2 Del Method 05/11/23 09:57 Room Air 05/11/23 06:57 36.6 C 79 17 137/93 94 Room Air Laboratory Results BMP reviewed PG Care Time/CCT Total # of Minutes Spent Total Time Spent with Patient: Total time spent is greater than 50% in coordination of care (as documented) at patient's floor/unit and/or counseling patient: Coding Level of Care Code 87910 SUB INP/OBS CARE 3/50MIN Diagnoses Encephalopathy G93.40 Chest pain R07.9 Chronic systolic congestive heart failure, NYHA class 2 I50.22 Nausea R11.0 Hyponatremia E87.1 Abnormal LFTs R79.89 NSTEMI (non-ST elevated myocardial infarction) I21.4 PAF (paroxysmal atrial fibrillation) I48.0 T2DM (type 2 diabetes mellitus) E11.9 Hypothyroidism E03.9
[2023-05-11 14:43] LABS: Basophils % (auto) 1.7 %; Eosinophils # (auto) 0.21 K/uL (0.00-0.50); Eosinophils % (auto) 3.6 %; Hematocrit (blood only) 40.8 % (42.0-52.0); Hemoglobin 13.9 g/dl (14.0-18.0); Immature Granulocytes # (auto) 0.03 K/uL (0.01-0.20); Immature Granulocytes % (auto) 0.5 %; Lymphocytes # (auto) 1.49 K/uL (1.20-3.40); Lymphocytes % (auto) 25.4 %; Mean Corpuscular Hgb Conc 34.1 g/dL (32.0-36.0); Mean Corpuscular Volume 88.1 fL (80.0-100.0); Mean Platelet Volume 11.4 fL (9.4-12.4); Monocytes # (auto) 0.57 K/uL (0.11-0.59); Monocytes % (auto) 9.7 %; Neutrophils # (auto) 3.47 K/uL (1.40-6.50); Neutrophils % (auto) 59.1 %; Platelet Count 163 K/uL (130-400); RDW Coefficient of Variation 14.6 % (11.5-14.5); RDW Standard Deviation 46.6 fL (36.4-46.3); Red Blood Count 4.63 M/uL (4.70-6.10); White Blood Count 5.87 K/ul (4.8-10.8)
[2023-05-11 15:07] LABS: Albumin Level 3.6 gm/dl (3.4-5.0); BUN Creatinine Ratio 19.8 (10-20); Bilirubin Direct 0.5 mg/dl (0-0.2); Bilirubin,Total 1.2 mg/dl (0.2-1.0); Calcium 8.9 mg/dl (8.6-10.3); Creatinine Clr Calc Pharmacy 39.9 ml/min; Est GFR (African American) 48.4 ml/min; Est GFR (Non-African American) 41.8 ml/min; Total Protein 6.8 gm/dl (6.0-8.3)
[2023-05-11 15:13] LABS: Troponin I High Sensitivity 36.9 pg/ml (0-20)
[2023-05-11 15:22] LABS: Thyroid Stimulating Hormone 8.188 uIu/ml (0.300-4.500)
--- NOTE | 2023-05-11 15:25 | XRay Report ---
XR KUB/Abdomen 1 view CLINICAL HISTORY: nausea,abdominal pain TECHNIQUE: 1 view of the abdomen was obtained. Comparison: Comparison is made to CT and pelvis 04/05/2023 FINDINGS: Lung bases are unremarkable. Degenerative changes are seen in the visualized skeleton. Numerous gas-d istended loops of small bowel measure up to 37 mm in diameter. Small stool burden is seen. IMPRESSION: Findings are concerning for ileus versus early/partial obstruction. ACT 112: Negative or not required by law. Electronically signed by: Enrrique Devi M.D. 05/11/2023 3:24 PM
[2023-05-11] MEDS: CARBOHYDRATES FOR HYPOGLYCEMIA PO PRN ×2 (20:19→20:51)
[2023-05-11] MEDS: FAMOTIDINE 20 MG TAB PO SCH (20:27)
[2023-05-12] MEDS: LEVOTHYROXINE SODIUM 50 MCG TABLET PO SCH (05:27)
[2023-05-12] MEDS: INSULIN ASPART PER UNIT CHARGE SC SCH ×4 (08:08→20:47)
--- NOTE | 2023-05-12 08:26 | Electrocardiogram Report ---
Test Reason : Blood Pressure : / mmHG Vent. 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 rate has decreased BY 39 BPM T-wave inversion in Anterolateral leads now present Confirmed by Khoi Ribera ([id number] on 05/12/2023 8:26:23 AM Referred By: REFERRED SELF Confirmed By:Khoi Ribera
[2023-05-12] MEDS: GABAPENTIN 100 MG CAP PO SCH ×3 (08:30→20:48)
[2023-05-12] MEDS: FAMOTIDINE 20 MG TAB PO SCH ×2 (08:30→20:48)
[2023-05-12] MEDS: THIAMINE HCL 100 MG TAB PO SCH (08:31)
[2023-05-12] MEDS: ATORVASTATIN 40 MG TAB PO SCH (08:31)
[2023-05-12] MEDS: FOLIC ACID 1 MG TAB PO SCH (08:31)
[2023-05-12] MEDS: CLOPIDOGREL BISULFATE 75 MG TAB PO SCH (08:31)
[2023-05-12] MEDS: METOPROLOL SUCC 50MG EXT REL TAB PO SCH (08:31)
[2023-05-12] MEDS: FLUTICASONE/VILANTEROL 200/25MCG 14 PUFFS/INHALER INH SCH (08:32)
[2023-05-12] MEDS: POLYETHYLENE (MIRALAX) 17 GM PACK PO SCH (08:32)
[2023-05-12 08:35] LABS: Calcium 9.2 mg/dl (8.6-10.3); Creatinine Clr Calc Pharmacy 43.9 ml/min; Est GFR (African American) 54.5 ml/min
[2023-05-12] MEDS: FUROSEMIDE 40 MG TAB PO SCH (11:00)
--- NOTE | 2023-05-12 13:42 | XCELERA ---
[id number]
--- NOTE | 2023-05-12 17:46 | Hospitalist Progress Note ---
Date of Service May 12, 2023 Assessment & Plan (1) Encephalopathy: Plan: metabolic encephalopathy, from hyponatremia, abd imaging suggest possible cystitis and proctocolitis but doubt infection Much improved now no leukocytosis, urine culture negative blood cultures negative to date stopped zosyn which he was on for possible proctocolitis moving bowels regularly and ileus resolving, no further nausea advance diet back to regular Do not believe encephalopathy was from proctocolitis but more from hyponatremia (2) Chest pain: Plan: indigestion, now resolved with pepcid. Do not suspect angina ECG with some TWI lateral leads, troponin continues to trend downward since admission ECHO with reduced EF 25-30%, mod reduced RV function, gay mild regurg in all valves,increased RVSP and dilated IVC (3) Chronic systolic congestive heart failure, NYHA class 2: Plan: With acute on chronic HFrEF and right sided HF EF reduced on ECHO 01/2023 at 25-30% with WMAs repeat ECHO here now as above with reduced EF 25-30%, mod reduced RV function, gay mild regurg in all valves,increased RVSP and dilated IVC is with peripheral edema here and worsening hyponatremia after receiving hypertonic saline earlier in stay for beer potomania Edema now improving and sodium rising, 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 Cardio notes from Aug state he was also on aldactone but this is not on home med list SUspect previous noncompliance with meds Needs ICD likely implanted if EF not improving with cessation of EtOH and compliance with GDMT for HFrEF F/u with Cardiology as outpt (4) Nausea: Plan: related to ileus? indigestion Pepcid as above, now resolved advanced diet (5) Hyponatremia: Plan: Sodium 125 on admission, was up to 130 after hypertonic salie given for beer potomania, then back to 127 Serum Osm high, Ur Na low at < 10, with volume overload as above from CHF Now improving again with IV lasix Fluid restrict giving lasix as above AZRA with CKD3, stopped diuretics, creatinine was up and now back down to 1.4contine holding ISAIAS inhibitor (6) Abnormal LFTs: Plan: likely from EtOH hepatitis with alcohol abuse Alcohol level less than 10 on admission Placed on AWSS protocol with IV Ativan Give thiamine 500 mg IV x1 in the ED along with folic acid 1 mg IV Continue thiamine 100 mg orally every morning and folic acid 1 mg every morning (7) NSTEMI (non-ST elevated myocardial infarction): Plan: Elevated troponin/chronic systolic CHF/PAF/nonischemic cardiomyopathy/hypertension- Troponin initially 77.8, 73.7, then trended downward to 40s *Myocardial infarction type 2 due to demand ischemia ECHO here with reduced EF and WMAs as above Continue apixaban, clopidogrel, and metoprolol succinate, statin (8) PAF (paroxysmal atrial fibrillation): Plan: rate controlled with metoprolol and anticoagulated with apixiban (9) T2DM (type 2 diabetes mellitus): Plan: insulin and farxiga at home HgbA1C 7.7% (10) Hypothyroidism: Plan: TSH 4.4 in 01/2023 and now up to 8.1 Unclear home dose of levothyroxine--> 25mcg? PCP note says to take 75 mcg but 25mcg on home list Increase LT4 dose to 50 mcg and check TSH in 4-6 weeks Plan Dispo-pt refusing short term rehab as he desires to go home. Improving with PT today and much more mentally clear. Continued stay for volume overload and hyponatremia but he will go home with home health at discharge Admission and Anticipated Discharge Date Admission Date: May 05, 2023 Subjective Pt feeling much better today and is much more alert and interactive. He denies any nausea or chest pain today. He states that he is committed to not drinking any more EtOH. He is very upset that his family members are trying to pressure him to go to rehab and he doesn't want to. Physical Exam Constitutional: WD/WN, vitals as above Respiratory: normal respiratory effort, lungs clear to auscultation Cardiovascular: Rate/Rhythm: regular rate and + irregularly irregular Extremities: + edema (1+ pitting edema legs bilat improved) Gastrointestinal (Abdomen): normal bowel sounds, soft, nontender, no hepatosplenomegaly Psychiatric: Orientation: alert, oriented x 3 and cooperative Results & Data Results & Data Vital Signs (Past 12 Hours) Vital Signs Temp Pulse Resp BP BP Pulse Ox O2 Del Method 05/12/23 15:27 36.6 C 83 20 158/92 H 96 Room Air 05/12/23 09:00 Room Air 05/12/23 07:30 36.5 C 79 15 158/90 H 95 Room Air Laboratory Results BMP reviewed PG Care Time/CCT Total # of Minutes Spent Total Time Spent with Patient: Total time spent is greater than 50% in coordination of care (as documented) at patient's floor/unit and/or counseling patient: Coding Level of Care Code 79635 SUB INP/OBS CARE 2/35MIN Diagnoses Encephalopathy G93.40 Chest pain R07.9 Chronic systolic congestive heart failure, NYHA class 2 I50.22 Nausea R11.0 Hyponatremia E87.1 Abnormal LFTs R79.89 NSTEMI (non-ST elevated myocardial infarction) I21.4 PAF (paroxysmal atrial fibrillation) I48.0 T2DM (type 2 diabetes mellitus) E11.9 Hypothyroidism E03.9
[2023-05-12] MEDS: APIXABAN 5 MG TABLET PO SCH (20:48)
[2023-05-13] MEDS: ALBUTEROL HFA 8 GM INHALER INH PRN ×2 (00:49→08:46)
[2023-05-13] MEDS: LEVOTHYROXINE SODIUM 50 MCG TABLET PO SCH (06:04)
[2023-05-13] MEDS: ATORVASTATIN 40 MG TAB PO SCH (07:32)
[2023-05-13] MEDS: CLOPIDOGREL BISULFATE 75 MG TAB PO SCH (07:33)
[2023-05-13] MEDS: FOLIC ACID 1 MG TAB PO SCH (07:33)
[2023-05-13] MEDS: GABAPENTIN 100 MG CAP PO SCH ×3 (07:33→19:21)
[2023-05-13] MEDS: METOPROLOL SUCC 50MG EXT REL TAB PO SCH (07:33)
[2023-05-13] MEDS: THIAMINE HCL 100 MG TAB PO SCH (07:33)
[2023-05-13] MEDS: APIXABAN 5 MG TABLET PO SCH ×2 (07:34→19:21)
[2023-05-13] MEDS: FAMOTIDINE 20 MG TAB PO SCH ×2 (07:34→19:21)
[2023-05-13] MEDS: FLUTICASONE/VILANTEROL 200/25MCG 14 PUFFS/INHALER INH SCH (07:34)
[2023-05-13 08:17] LABS: Calcium 9.2 mg/dl (8.6-10.3); Potassium 3.9 mmol/L (3.5-5.1)
[2023-05-13 08:23] LABS: BUN Creatinine Ratio 16.7 (10-20); Creatinine Clr Calc Pharmacy 38.5 ml/min; Est GFR (African American) 46.3 ml/min
[2023-05-13] MEDS: INSULIN ASPART PER UNIT CHARGE SC SCH ×4 (08:44→20:17)
[2023-05-13] MEDS ORDERED: FUROSEMIDE INJ 20 MG/2 ML VIAL IV ONE (09:21)
--- NOTE | 2023-05-13 12:15 | Hospitalist Progress Note ---
Date of Service May 13, 2023 Assessment & Plan (1) Encephalopathy: Plan: Acute metabolic encephalopathy, from hyponatremia, abd imaging suggest possible cystitis and proctocolitis but doubt infection Much improved now--no leukocytosis, urine culture negative, blood cultures negative to date stopped zosyn which he was on for possible proctocolitis moving bowels regularly and ileus resolving, no further nausea (2) Chronic systolic congestive heart failure, NYHA class 2: Plan: With acute on chronic HFrEF and right sided HF EF reduced on ECHO 01/2023 at 25-30% with WMAs repeat ECHO here now as above with reduced EF 25-30%, mod reduced RV function, gay mild regurg in all valves,increased RVSP and dilated IVC is with peripheral edema here and worsening hyponatremia after receiving hyperto dottie saline earlier in stay for beer potomania Edema now improving and sodium continues to be rising, 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 Cardio notes from Jan state he was also on aldactone but this is not on home med list SUspect previous noncompliance with meds Needs ICD likely implanted if EF not improving with cessation of EtOH and compliance with GDMT for HFrEF F/u with Cardiology as outpt (3) Gout attack: Plan: With left great toe pain and tenderness Weak dorsalis pedis pulses but circulation intact. With previous frostbite injury as per patient. Suspect acute gout given alcoholism, diuretic use, and renal failure Start prednisone 20 mg daily and assess for improvement Check uric acid level (4) Chest pain: Plan: indigestion, now resolved with pepcid. Do not suspect angina ECG with some TWI lateral leads, troponin continues to trend downward since admission ECHO with reduced EF 25-30%, mod reduced RV function, gay mild regurg in all valves,increased RVSP and dilated IVC (5) Nausea: Plan: related to ileus? indigestion Pepcid as above, now resolved Tolerating regular diet (6) Hyponatremia: Plan: Sodium 125 on admission, was up to 130 after hypertonic saline given for beer potomania, then back to 127 Serum Osm high, Ur Na low at < 10, with volume overload as above from CHF Continues to be greatly improving with IV lasix and diuresis for volume overload-sodium now up to 132 Continue to fluid restrict Continue giving lasix as above AZRA with CKD3, creatinine stable around 1.4-1.6continue holding ISAIAS inhibitor (7) Abnormal LFTs: Plan: likely from EtOH hepatitis with alcohol abuse Alcohol level less than 10 on admission Placed on AWSS protocol with IV Ativan-this can now be discontinued as he is not no risk for withdrawal Continue thiamine 100 mg orally every morning and folic acid 1 mg every morning Check LFTs in the morning (8) NSTEMI (non-ST elevated myocardial infarction): Plan: Elevated troponin-Troponin initially 77.8, 73.7, then trended downward to 40s *Myocardial infarction type 2 due to demand ischemia ECHO here with reduced EF and WMAs unchanged from previous Continue apixaban, clopidogrel, and metoprolol succinate, statin (9) PAF (paroxysmal atrial fibrillation): Plan: rate controlled with metoprolol and anticoagulated with apixiban (10) T2DM (type 2 diabetes mellitus): Plan: insulin and farxiga at home HgbA1C 7.7% (11) Hypothyroidism: Plan: TSH 4.4 in 01/2023 and now up to 8.1 Unclear home dose of levothyroxine--> 25mcg? PCP note says to take 75 mcg but 25mcg on home list Increase LT4 dose to 50 mcg and check TSH in 4-6 weeks Plan Dispo-pt refusing short term rehab as he desires to go home. Improving with PT now and much more mentally clear. Continued stay for volume overload and hyponatremia but he will go home with home health at discharge Admission and Anticipated Discharge Date Admission Date: May 05, 2023 Anticipated date of discharge: 05/15/23 Subjective Patient reports pain in his left great toe. Reports a history of previous frostbite and that his toe is frequently purpleish in color since that time. He is eating and drinking, is out of bed to the chair. No chest pains or shortness of breath. He denies any previous history of gout. Physical Exam Constitutional: WD/WN, vitals as above Respiratory: normal respiratory effort, lungs clear to auscultation Cardiovascular: Rate/Rhythm: regular rate and + irregularly irregular Extremities: + edema (1+ pitting edema legs bilat improved) Gastrointestinal (Abdomen): normal bowel sounds, soft, nontender, no hepatosplenomegaly Skin: Left great toe with some purplish discoloration and all toes with erythema, positive tenderness to palpation over left great toe Psychiatric: Orientation: alert, oriented x 3, oriented to person and cooperative Results & Data Results & Data Vital Signs (Past 12 Hours) Vital Signs Temp Pulse Resp BP Pulse Ox O2 Del Method 05/13/23 08:59 Room Air 05/13/23 07:31 36.3 C L 80 16 156/89 H 96 Room Air 05/13/23 00:49 95 H 18 94 Room Air 05/13/23 00:15 36.4 C L 85 20 158/90 H 99 Room Air Laboratory Results CBC, BMP, magnesium level, uric acid reviewed PG Care Time/CCT Total # of Minutes Spent Total Time Spent with Patient: Total time spent is greater than 50% in coordination of care (as documented) at patient's floor/unit and/or counseling patient: Coding Level of Care Code 36628 SUB INP/OBS CARE 2/35MIN Diagnoses Encephalopathy G93.40 Chronic systolic congestive heart failure, NYHA class 2 I50.22 Gout attack M10.9 Chest pain R07.9 Nausea R11.0 Hyponatremia E87.1 Abnormal LFTs R79.89 NSTEMI (non-ST elevated myocardial infarction) I21.4 PAF (paroxysmal atrial fibrillation) I48.0 T2DM (type 2 diabetes mellitus) E11.9 Hypothyroidism E03.9
[2023-05-13] MEDS: CLOTRIMAZOLE 1% CR 15 GM TUBE EXT SCH ×2 (13:26→19:22)
[2023-05-13] MEDS: predniSONE 20 MG TAB PO SCH (13:26)
[2023-05-13] MEDS ORDERED: FUROSEMIDE 40 MG/4 ML VIAL IV ONE (16:23)
[2023-05-14] MEDS: LEVOTHYROXINE SODIUM 50 MCG TABLET PO SCH (05:19)
[2023-05-14] MEDS: FAMOTIDINE 20 MG TAB PO SCH ×2 (07:39→20:13)
[2023-05-14] MEDS: GABAPENTIN 100 MG CAP PO SCH ×3 (07:39→20:14)
[2023-05-14] MEDS: ATORVASTATIN 40 MG TAB PO SCH (07:39)
[2023-05-14] MEDS: FOLIC ACID 1 MG TAB PO SCH (07:39)
[2023-05-14] MEDS: APIXABAN 5 MG TABLET PO SCH ×2 (07:39→20:13)
[2023-05-14] MEDS: METOPROLOL SUCC 50MG EXT REL TAB PO SCH (07:39)
[2023-05-14] MEDS: CLOPIDOGREL BISULFATE 75 MG TAB PO SCH (07:39)
[2023-05-14] MEDS: predniSONE 20 MG TAB PO SCH (07:40)
[2023-05-14] MEDS: THIAMINE HCL 100 MG TAB PO SCH (07:40)
[2023-05-14] MEDS: CLOTRIMAZOLE 1% CR 15 GM TUBE EXT SCH ×2 (07:40→20:14)
[2023-05-14] MEDS: FLUTICASONE/VILANTEROL 200/25MCG 14 PUFFS/INHALER INH SCH (07:40)
[2023-05-14 07:53] LABS: Basophils # (auto) 0.04 K/uL (0.00-0.20); Basophils % (auto) 0.7 %; Eosinophils # (auto) 0.15 K/uL (0.00-0.50); Eosinophils % (auto) 2.5 %; Hematocrit (blood only) 38.1 % (42.0-52.0); Hemoglobin 12.8 g/dl (14.0-18.0); Immature Granulocytes # (auto) 0.04 K/uL (0.01-0.20); Immature Granulocytes % (auto) 0.7 %; Lymphocytes # (auto) 1.32 K/uL (1.20-3.40); Mean Corpuscular Hemoglobin 29.7 pg (25.0-34.0); Mean Corpuscular Hgb Conc 33.6 g/dL (32.0-36.0); Mean Corpuscular Volume 88.4 fL (80.0-100.0); Monocytes # (auto) 0.67 K/uL (0.11-0.59); Monocytes % (auto) 11.2 %; Neutrophils # (auto) 3.78 K/uL (1.40-6.50); Neutrophils % (auto) 62.9 %; Platelet Count 193 K/uL (130-400); RDW Coefficient of Variation 14.6 % (11.5-14.5); Red Blood Count 4.31 M/uL (4.70-6.10)
[2023-05-14 08:11] LABS: Albumin Level 3.5 gm/dl (3.4-5.0); BUN Creatinine Ratio 20.2 (10-20); Bilirubin Direct 0.4 mg/dl (0-0.2); Bilirubin,Total 1.2 mg/dl (0.2-1.0); Calcium 9.1 mg/dl (8.6-10.3); Creatinine Clr Calc Pharmacy 38.3 ml/min; Est GFR (African American) 41.8 ml/min; Est GFR (Non-African American) 36.1 ml/min; Magnesium 1.9 mg/dl (1.7-2.4); Potassium 3.9 mmol/L (3.5-5.1); Total Protein 6.6 gm/dl (6.0-8.3)
[2023-05-14] MEDS: INSULIN ASPART PER UNIT CHARGE SC SCH ×4 (08:12→20:13)
[2023-05-14] MEDS: FUROSEMIDE 40 MG TAB PO SCH (08:53)
[2023-05-14] MEDS: ALBUTEROL HFA 8 GM INHALER INH PRN (08:54)
--- NOTE | 2023-05-14 12:12 | Hospitalist Progress Note ---
Date of Service May 14, 2023 Assessment & Plan (1) Encephalopathy: Plan: Acute metabolic encephalopathy, from hyponatremia, abd imaging suggest possible cystitis and proctocolitis but doubt infection Much improved with one episode overnight into the AM of agitation, pulled out IV, thought he was Baljinder Corley (05/13-05/14. Now mentation clear, Possibly new episode related to prednisone given for gout? no leukocytosis, urine culture negative, blood cultures negative to date stopped zosyn which he was on for possible proctocolitis moving bowels regularly and ileus resolving, no further nausea dc prednisone (2) Chronic systolic congestive heart failure, NYHA class 2: Plan: With acute on chronic HFrEF and right sided HF EF reduced on ECHO 01/2023 at 25-30% with WMAs repeat ECHO here now as above with reduced EF 25-30%, mod reduced RV function, gay mild regurg in all valves,increased RVSP and dilated IVC is with peripheral edema here and worsening hyponatremia after receiving hyperto dottie saline earlier in stay for beer potomania Edema now improving but remains, and sodium continues to be rising but stable now at 131, 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 Cardio notes from Jan state he was also on aldactone but this is not on home med list SUspect previous noncompliance with meds Needs ICD likely implanted if EF not improving with cessation of EtOH and compliance with GDMT for HFrEF F/u with Cardiology as outpt (3) Gout attack: Plan: With left great toe pain and tenderness now resolved with 2 doses of prednisone and with worsening confusion on prednisone Weak dorsalis pedis pulses but circulation intact. With previous frostbite injury as per patient. Suspect acute gout given alcoholism, diuretic use, and renal failure Uric acid level normal at 5 but can be normal in acute attack dc prednisone, if needs future treatment for gout, would use colchicine (4) Chest pain: Plan: indigestion, now resolved with pepcid. Do not suspect angina ECG with some TWI lateral leads, troponin continues to trend downward since admission ECHO with reduced EF 25-30%, mod reduced RV function, gay mild regurg in all valves,increased RVSP and dilated IVC (5) Nausea: Plan: related to ileus? indigestion Pepcid as above, now resolved Tolerating regular diet (6) Hyponatremia: Plan: Sodium 125 on admission, was up to 130 after hypertonic saline given for beer potomania, then back to 127 Serum Osm high, Ur Na low at < 10, with volume overload as above from CHF Continues to be improved with IV lasix and diuresis for volume overload-sodium now up to 131 Continue to fluid restrict Continue giving lasix as above AZRA with CKD3, creatinine stable around 1.4-1.6continue holding ISAIAS inhibitor (7) Abnormal LFTs: Plan: likely from EtOH hepatitis improving with alcohol abuse Alcohol level less than 10 on admission and has been here long enough that he is not at risk for withdrawal Continue thiamine 100 mg orally every morning and folic acid 1 mg every morning (8) NSTEMI (non-ST elevated myocardial infarction): Plan: Elevated troponin-Troponin initially 77.8, 73.7, then trended downward to 40s *Myocardial infarction type 2 due to demand ischemia ECHO here with reduced EF and WMAs unchanged from previous Continue apixaban, clopidogrel, and metoprolol succinate, statin (9) PAF (paroxysmal atrial fibrillation): Plan: rate controlled with metoprolol and anticoagulated with apixiban (10) T2DM (type 2 diabetes mellitus): Plan: insulin and farxiga at home HgbA1C 7.7% (11) Hypothyroidism: Plan: TSH 4.4 in 01/2023 and now up to 8.1 Unclear home dose of levothyroxine--> 25mcg? PCP note says to take 75 mcg but 25mcg on home list Increase LT4 dose to 50 mcg and check TSH in 4-6 weeks Plan Dispo-pt refusing short term rehab as he desires to go home. Improving with PT now and much more mentally clear. Continued stay for volume overload and hyponatremia but he will go home with home health at discharge Called and left voicemail for [id number]/son on 05/14 Admission and Anticipated Discharge Date Admission Date: May 05, 2023 Subjective Pt had confusion overnight, ripped out his IV and demanded to go home. 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 The nurses then allowed him to come out to the nurse's station, watch Baljinder You [employer]ube videos and he sang along. Now, he is back to himself and mentation has improved. He is eating lunch, denies toe pain. Says "that medicine you gave me really worked." Physical Exam Constitutional: WD/WN, vitals as above Respiratory: normal respiratory effort, lungs clear to auscultation Cardiovascular: Rate/Rhythm: regular rate and + irregularly irregular Extremities: + edema (1+ pitting edema legs bilat ) Gastrointestinal (Abdomen): normal bowel sounds, soft, nontender, no hepatosplenomegaly Skin: left great toe with purplish discoloration, no erythema, no TTP Psychiatric: Orientation: alert, oriented to person, oriented to place and cooperative Results & Data Results & Data Vital Signs (Past 12 Hours) Vital Signs Temp Pulse Resp BP BP Pulse Ox O2 Del Method 05/14/23 09:21 Room Air 05/14/23 07:18 158/103 H 05/14/23 07:16 36.4 C L 88 16 156/104 H 94 Room Air Laboratory Results CBC, BMP. LFTs reviewed PG Care Time/CCT Total # of Minutes Spent Total Time Spent with Patient: Total time spent is greater than 50% in coordination of care (as documented) at patient's floor/unit and/or counseling patient: Coding Level of Care Code 76483 SUB INP/OBS CARE 2/35MIN Diagnoses Encephalopathy G93.40 Chronic systolic congestive heart failure, NYHA class 2 I50.22 Gout attack M10.9 Chest pain R07.9 Nausea R11.0 Hyponatremia E87.1 Abnormal LFTs R79.89 NSTEMI (non-ST elevated myocardial infarction) I21.4 PAF (paroxysmal atrial fibrillation) I48.0 T2DM (type 2 diabetes mellitus) E11.9 Hypothyroidism E03.9
[2023-05-15] MEDS: LEVOTHYROXINE SODIUM 50 MCG TABLET PO SCH (05:17)
[2023-05-15] MEDS: INSULIN ASPART PER UNIT CHARGE SC SCH ×2 (08:11→12:27)
[2023-05-15] MEDS: FAMOTIDINE 20 MG TAB PO SCH (09:00)
[2023-05-15] MEDS: ATORVASTATIN 40 MG TAB PO SCH (09:00)
[2023-05-15] MEDS: FLUTICASONE/VILANTEROL 200/25MCG 14 PUFFS/INHALER INH SCH (09:00)
[2023-05-15] MEDS: THIAMINE HCL 100 MG TAB PO SCH (09:01)
[2023-05-15] MEDS: FOLIC ACID 1 MG TAB PO SCH (09:01)
[2023-05-15] MEDS: CLOPIDOGREL BISULFATE 75 MG TAB PO SCH (09:01)
[2023-05-15] MEDS: METOPROLOL SUCC 50MG EXT REL TAB PO SCH (09:01)
[2023-05-15] MEDS: CLOTRIMAZOLE 1% CR 15 GM TUBE EXT SCH (09:01)
[2023-05-15] MEDS: GABAPENTIN 100 MG CAP PO SCH ×2 (09:01→13:45)
[2023-05-15] MEDS: APIXABAN 5 MG TABLET PO SCH (09:01)
[2023-05-15] MEDS: FUROSEMIDE 40 MG TAB PO SCH (09:01)
[2023-05-15 09:38] LABS: BUN Creatinine Ratio 20.2 (10-20); Calcium 9.4 mg/dl (8.6-10.3); Creatinine Clr Calc Pharmacy 41.8 ml/min; Est GFR (African American) 46.3 ml/min; Magnesium 2.1 mg/dl (1.7-2.4); Potassium 3.4 mmol/L (3.5-5.1)
[2023-05-15] MEDS ORDERED: POTASSIUM CHLORIDE CRTAB 20 MEQ TABCR PO STA (09:48)
--- NOTE | 2023-05-15 15:59 | Discharge Summary ---
Discharge Summary Date of Service May 15, 2023 Notes For Next Care Provider Needs BMP in 1-2 weeks, TSH in 4-6 weeks Follow up closely due to noncompliance and history of alcohol abuse Medication Changes From Visit Increased levothyroxine to 50 mcg Added clotrimazole cream to feet bid HOLD Farxiga Admission HPI Per Admitting Provider The patient is a 73-year-old male with a past medical history including peripheral neuropathy, alcohol abuse, hypothyroidism, PSVT, PAF, chronic systolic heart failure, nonischemic cardiomyopathy, hypertension, anxiety, GERD, hyperlipidemia and COPD. He presents to the emergency department for assessment of symptoms as noted above. He has a history of ambulatory dysfunction associated with peripheral neuropathy and he reports circulatory issues in his legs. Principal Dx & Hospital Course #1 = Principal Diagnosis (1) Encephalopathy: Acute metabolic encephalopathy, from hyponatremia, abd imaging suggest possible cystitis and proctocolitis but doubt infection Much improved with one episode overnight into the AM of 05/13-05/14 with agitation, pulled out IV, thought he was Baljinder Corley. Now mentation clear, Possibly new episode related to prednisone given for gout? Previously could be related to hyponatremia Likely has some developing dementia, treating empirically for thiamine deficiency with thiamine po here given EtOH abuse no leukocytosis, urine culture negative, blood cultures negative to date stopped zosyn which he was on for possible proctocolitis moving bowels regularly and ileus resolving, no further nausea dcd prednisone advised cessation of EtOH which he says he will do but family is doubtful of suc h (2) Chronic systolic congestive heart failure, NYHA class 2: With acute on chronic HFrEF and right sided HF EF reduced on ECHO 01/2023 at 25-30% with WMAs repeat ECHO here now as above with reduced EF 25-30%, mod reduced RV function, gay mild regurg in all valves,increased RVSP and dilated IVC is with peripheral edema here and worsening hyponatremia after receiving hy pertonic saline earlier in stay for beer potomania Edema now improving but remains, and sodium now normal, 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--> remains volume overloaded but improved COntinue home lasix 40mg po daily Continue EMILEE hose daily weights, fluid restrict, low sodium diet at home avoid EtOH which he is committed to doing Continue Toprol XL, resume lisinopril and continue to HOLD Farxiga at discharge Cardio notes from Jan state he was also on aldactone but this is not on home med list SUspect previous noncompliance with meds Needs ICD likely implanted if EF not improving with cessation of EtOH and compliance with GDMT for HFrEF F/u with Cardiology as outpt Referred to CHF clinic (3) Gout attack: With left great toe pain and tenderness now resolved with 2 doses of prednisone and with worsening confusion on prednisone Weak dorsalis pedis pulses but circulation intact. With previous frostbite injury as per patient. Suspect acute gout given alcoholism, diuretic use, and renal failure Uric acid level normal at 5 but can be normal in acute attack dcd prednisone, if needs future treatment for gout, would use colchicine Fortunately not having any pain now (4) Chest pain: indigestion, now resolved with pepcid. Do not suspect angina ECG with some TWI lateral leads, troponin continues to trend downward since admission ECHO with reduced EF 25-30%, mod reduced RV function, gay mild regurg in all valves,increased RVSP and dilated IVC COntinue pepcid bid on discharge (5) Nausea: related to ileus? indigestion Pepcid as above, now resolved Tolerating regular diet (6) Hyponatremia: Sodium 125 on admission, was up to 130 after hypertonic saline given for beer potomania, then back to 127 Serum Osm high, Ur Na low at < 10, with volume overload as above from CHF Now resolved with IV lasix and diuresis for volume overload-sodium now up to 137 Continue to fluid restrict at home Continue giving lasix as above AZRA with CKD3, creatinine stable around 1.4-1.6ok to resume ISAIAS inhibitor follow BMP as outpt with PCP and CHF clinic (7) Abnormal LFTs: likely from EtOH hepatitis improving with alcohol abuse Alcohol level less than 10 on admission and has been here long enough that he is not at risk for withdrawal Continue thiamine 100 mg orally every morning and folic acid 1 mg every morning (8) NSTEMI (non-ST elevated myocardial infarction): Elevated troponin-Troponin initially 77.8, 73.7, then trended downward to 40s *Myocardial infarction type 2 due to demand ischemia ECHO here with reduced EF and WMAs unchanged from previous Continue apixaban, clopidogrel, and metoprolol succinate, statin (9) PAF (paroxysmal atrial fibrillation): rate controlled with metoprolol and anticoagulated with apixiban (10) T2DM (type 2 diabetes mellitus): insulin and farxiga at home but HOLD Farxiga for now HgbA1C 7.7% (11) Hypothyroidism: TSH 4.4 in 01/2023 and now up to 8.1 Unclear home dose of levothyroxine--> 25mcg? PCP note says to take 75 mcg but 25mcg on home list Increase LT4 dose to 50 mcg and check TSH in 4-6 weeks Plan Dispo-pt refusing short term rehab as he desires to go home. Improving with PT now and much more mentally clear. Discussed care with [id number] on 05/15. SHe is frustrated with his lack of self-care and desire to continue drinking EtOH. [employer] Clerk has arranged home health and discussed care w/ [facility] Advised daughter to call [facility] as well for assistance Discharge Exam Constitutional WD/WN, vitals as above Respiratory normal respiratory effort, lungs clear to auscultation Cardiovascular Rate/Rhythm: regular rate and + irregularly irregular Extremities: + edema (1+ pitting edema legs bilat ) Gastrointestinal (Abdomen) normal bowel sounds, soft, nontender, no hepatosplenomegaly Psychiatric Orientation: alert, oriented x 3 and cooperative Updated Medication List Medication Instructions Recorded Confirmed Type Shower Chair #1 ea 08/19/22 02/20/23 Rx albuterol sulfate 90 mcg/actuation 2 puff inhalation Q4H PRN 10/20/22 05/05/23 Rx aerosol inhaler Wheezing/Dyspnea #8.5 grams apixaban 5 mg tablet (Eliquis) 5 mg PO BID 30 days #60 tabs 10/24/22 05/05/23 Rx atorvastatin 40 mg tablet 40 mg PO DAILY #30 tabs 10/24/22 05/05/23 Rx clopidogrel 75 mg tablet 75 mg PO QAM 30 days #30 tabs 10/24/22 05/05/23 Rx enalapril maleate 10 mg tablet 10 mg PO DAILY 30 days #30 tabs 10/24/22 05/05/23 Rx fluticasone 250 mcg-salmeterol 50 1 inh inhalation BID #60 ea 10/24/22 05/05/23 Rx mcg/dose blistr powdr for inhalation (Advair Diskus) furosemide 20 mg tablet 40 mg (2 x 20 mg) PO DAILY #60 tabs 10/24/22 05/05/23 Rx metoprolol succinate 100 mg 100 mg PO DAILY #30 tabs 10/24/22 05/05/23 Rx tablet,extended release 24 hr potassium chloride 10 mEq 10 meq PO DAILY #30 tabs 10/25/22 05/05/23 Rx tablet,extended release gabapentin 100 mg capsule 100 mg PO TID 01/29/23 05/05/23 History nitroglycerin 0.4 mg sublingual 0.4 mg sublingual Q5M PRN chest 03/22/23 05/05/23 Rx tablet (Nitrostat) pain #25 tabs dapagliflozin propanediol 10 mg 10 mg PO DAILY 05/05/23 05/05/23 History tablet (Farxiga) clotrimazole 1 % topical cream 1 applic EXT BID apply to your 05/15/23 Rx feet and between toes bilateral feet #30 grams famotidine 20 mg tablet 20 mg PO BID #60 tabs 05/15/23 Rx folic acid 1 mg tablet 1 mg PO DAILY #30 tabs 05/15/23 Rx insulin glargine 100 unit/mL (3 10 unit (0.1 mL) subcut DAILY #15 05/15/23 05/05/23 Rx mL) subcutaneous pen (Lantus mL Solostar U-100 Insulin) levothyroxine 50 mcg tablet 50 mcg PO DAILYBB #30 tabs 05/15/23 Rx (Synthroid) thiamine HCl (vitamin B1) 100 mg 100 mg PO QAM #30 tabs 05/15/23 Rx tablet Hospital Stay Data Consultations 05/05/23 01:11 ED Decision to Admit Stat 05/15/23 15:49 [facility] [place] [facility] Referral Routine Diagnostic Imagining Performed 05/05/23 00:45 CT Abd and Pelvis [CT abd pelvis wo con] Stat 05/05/23 05:21 CT head/brain wo con Stat ECHO Pending Results Patient Have Any Pending Studies at Discharge: No Discharge Instructions Given to Patient (Per Discharging Provider) You were admitted with worsening confusion and low sodium levels from being overloaded with fluid from your heart failure. It is very important that you take the medications as prescribed on your discharge medication list. You should NOT DRINK ANY ALCOHOL as this overloads you with fluid and lowers your sodium. You should continue taking the vitamins prescribed to improve your brain function that is diminishing from alcohol use. The thiamine and folic acid were prescribed to your pharmacy but if they are not covered by your insurance, you can buy them off the shelf. You were started on famotidine 20mg twice a day for heartburn which is helping. Your thyroid function was low and your levothyroxine dose was increased to 50 mcg daily for this. Please follow up with your primary care doctor as scheduled and you will also n eed to see your C Wpf Developer. You were referred to the CHF clinic for further management. Call your Primary Care doctor if any of the following symptoms or problems start or get worse: * Shortness of breath or difficulty breathing * Wake up at night short of breath * Chest pain * Cough * Swelling of your hands, feet, or legs * More fatigued or tired with your normal activity * Palpitations - sudden fast heart beats WEIGHT * Weigh yourself every morning after using the bathroom. * Use the same scale. * Wear the same amount of clothing. * Write your weight down on a chart. * Call your Primary Care doctor if you gain more than 2-3 pounds in 1-2 days. MEDICATIONS * Use this discharge instruction sheet for medication instructions. * Take your medications at the time your doctor ordered. * Do not skip a dose of your medicines. * If you miss a dose of medicine, take it as soon as possible, but DO NOT DOUBLE A DOSE. * Read your medicine information when you get home. * Know all of the side effects of your medicine. If in doubt, ask your pharmacist * Call your Primary Care doctor's office if you have any side effects. * Be sure all of your doctors know what medicine and herbs you take (including cold, flu, and herbal medicine). Take the following with you to your follow-up doctor appointments: * Weight Chart * Medication List * List of questions Do not drink excessive alcohol, beer or wine. Total Time Total Time Spent Total Time Spent (In Minutes): 40 min Coding Level of Care Code 34567 INP/OBS DISCH >30 MIN Diagnoses Encephalopathy G93.40 Chronic systolic congestive heart failure, NYHA class 2 I50.22 Gout attack M10.9 Chest pain R07.9 Nausea R11.0 Hyponatremia E87.1 Abnormal LFTs R79.89 NSTEMI (non-ST elevated myocardial infarction) I21.4 PAF (paroxysmal atrial fibrillation) I48.0 T2DM (type 2 diabetes mellitus) E11.9 Hypothyroidism E03.9
== END 2023-05-15 16:12 | disposition home health service (06) | DRG 640 ==
LOC: ED 22:00 → 2S 05-05 02:43 → SUATTDRO 05-05 02:43 → 2S 05-05 05:31 → 3E 05-06 23:44

== ENCOUNTER 2023-06-19 10:31 | Inpatient (IN) ==
[2023-06-19] MEDS ORDERED: SODIUM CHLORIDE 0.9% 1,000 ML IV STA (10:35)
[2023-06-19] MEDS ORDERED: ACETAMINOPHEN 1,000 MG/100 ML VIAL IV STA (11:00)
[2023-06-19] MEDS ORDERED: SODIUM CHLORIDE 0.9% 500 ML IV ONE (11:00)
[2023-06-19] MEDS ORDERED: SODIUM CHLORIDE 0.9% 1,000 ML IV ONE (12:01)
[2023-06-19 12:02] LABS: Basophils # (auto) 0.02 K/uL (0.00-0.20); Basophils % (auto) 0.3 %; Hematocrit (blood only) 35.1 % (42.0-52.0); Hemoglobin 12.2 g/dl (14.0-18.0); Immature Granulocytes # (auto) 0.04 K/uL (0.01-0.20); Immature Granulocytes % (auto) 0.6 %; Lymphocytes # (auto) 0.64 K/uL (1.20-3.40); Lymphocytes % (auto) 9.2 %; Mean Corpuscular Hemoglobin 29.3 pg (25.0-34.0); Mean Corpuscular Hgb Conc 34.8 g/dL (32.0-36.0); Mean Corpuscular Volume 84.4 fL (80.0-100.0); Mean Platelet Volume 11.4 fL (9.4-12.4); Monocytes # (auto) 0.63 K/uL (0.11-0.59); Monocytes % (auto) 9.1 %; Neutrophils # (auto) 5.59 K/uL (1.40-6.50); Neutrophils % (auto) 80.8 %; Platelet Count 179 K/uL (130-400); RDW Coefficient of Variation 15.9 % (11.5-14.5); RDW Standard Deviation 48.3 fL (36.4-46.3); Red Blood Count 4.16 M/uL (4.70-6.10); White Blood Count 6.92 K/ul (4.8-10.8)
[2023-06-19 12:23] LABS: Albumin Globulin Ratio 1.2 (0.9-2); Albumin Level 3.7 gm/dl (3.4-5.0); BUN Creatinine Ratio 12.8 (10-20); Bilirubin,Total 1.8 mg/dl (0.2-1.0); Calcium 8.4 mg/dl (8.6-10.3); Creatinine Clr Calc Pharmacy 55.2 ml/min; Est GFR (African American) 71.8 ml/min; Est GFR (Non-African American) 61.9 ml/min; Globulin 3.2 gm/dl (2.5-4.0); Potassium 4.1 mmol/L (3.5-5.1); Total Protein 6.9 gm/dl (6.0-8.3)
[2023-06-19 12:31] LABS: Troponin I High Sensitivity 67.2 pg/ml (0-20)
[2023-06-19 12:46] LABS: Adenovirus PCR Not Detected (NotDetected); Bordetella parapertussis PCR Not Detected (NotDetected); Bordetella pertussis PCR Not Detected (NotDetected); Chlamydia pneumoniae PCR Not Detected (NotDetected); Coronavirus 229E PCR Not Detected (NotDetected); Coronavirus CoV-2 (COVID19)PCR Not Detected (NotDetected); Coronavirus HKU1 PCR Not Detected (NotDetected); Coronavirus NL63 PCR Not Detected (NotDetected); Coronavirus OC43PCR Not Detected (NotDetected); Human Metapneumovirus PCR Not Detected (NotDetected); Influenza A PCR Not Detected (NotDetected); Influenza B PCR Not Detected (NotDetected); Mycoplasma pneumoniae PCR Not Detected (NotDetected); Parainfluenza Virus 1 PCR Not Detected (NotDetected); Parainfluenza Virus 2 PCR Not Detected (NotDetected); Parainfluenza Virus 3 PCR Not Detected (NotDetected); Parainfluenza Virus 4 PCR Not Detected (NotDetected); Respiratory Syncytial VirusPCR Not Detected (NotDetected); Rhinovirus/Enterovirus PCR Not Detected (NotDetected)
--- NOTE | 2023-06-19 12:51 | CT Scan Report ---
CT head/brain wo con CLINICAL HISTORY: fall Technique: Contiguous axial CT images of the head were acquired from the base of the skull to the frank faith without intravenous contrast administration. Images were viewed in brain, [facility]. Automated dose lowering techniques and/or adjustment according to patient size were utilized for this exam. Comparison: None available at the time of this dictation. Findings: Areas of decreased attenuation are present in the periventricular and subcortical white matter bilate rally consistent with small vessel ischemic disease. Generalized cerebral atrophy with commensurate e nlargement of the ventricles, sulci, and cisterns is also present. There is no acute intracranial hem orrhage or evidence of acute territorial infarction. No shift of the midline structures, mass effect, or extra-axial abnormalities are shown. Atherosclerotic calcifications are present in the intracran ial segments of the internal carotid arteries. Imaged portions of the paranasal sinuses and mastoid air cells are clear. The orbits appear normal. There are no acute fractures of the calvaria or scalp swelling. Impression: No acute intracranial hemorrhage, no evidence of acute territorial infarction or other acute intracra nial disease process. ACT 112: Negative or not required by law. Electronically signed by: Enrrique Devi M.D. 06/19/2023 12:49 PM
--- NOTE | 2023-06-19 12:53 | CT Scan Report ---
CT cervical spine wo con CLINICAL HISTORY: fall TECHNIQUE: Multidetector row helical CT of the cervical spine was performed without administration of intravenous contrast. Coronal and sagittal reformations were obtained. Automated dose lowering techn iques and/or adjustment according to patient size were utilized for this exam. Comparison: Comparison is made to CT cervical spine 10/06/2021 FINDINGS: No acute fractures or subluxations are identified. Degenerative changes are seen in the visualized sp ine. The alignment is normal. Small bilateral pleural effusions are seen. IMPRESSION: Degenerative changes without evidence of acute bony injury. ACT 112: Negative or not required by law. Electronically signed by: Enrrique Devi M.D. 06/19/2023 12:51 PM
--- NOTE | 2023-06-19 13:12 | CT Scan Report ---
CT abd pelvis wo con CLINICAL HISTORY: fall, RLQ pain TECHNIQUE: Helical axial images of the abdomen and pelvis were obtained. Automated dose lowering tech niques and/or adjustment according to patient size were utilized for this exam. This exam was perfor med without intravenous contrast. COMPARISON: Comparison is made to CT abdomen pelvis 06/09/2023 FINDINGS: Lower chest: Cardiomegaly is partially visualized. Moderate right and small left pleural effusions a re seen. Liver: Unremarkable. No focal lesions are seen. Gallbladder and biliary tree: No calcified gallstones. Normal caliber wall. No intra- or extrahepatic biliary ductal dilation. Pancreas: Unremarkable, no focal lesions. Spleen: Unremarkable. Adrenals: Unremarkable. Kidneys and ureters: Unremarkable. Bladder: Diffuse homogeneous wall thickening is seen. Reproductive organs: Prostatic calcifications are seen which may represent prior hemorrhage or granul omatous disease. Bowel: A hiatal hernia is seen. Lymph nodes Retroperitoneal: Unremarkable. Pelvic: Unremarkable. Mesenteric: Unremarkable. Peritoneum: Peritoneal stranding is seen. Vessels: Extensive calcifications are seen. Abdominal wall: Bilateral fat-containing inguinal hernias are seen. A fat-containing umbilical hernia is seen. Bones: Degenerative changes in the visualized spine. IMPRESSION: 1. No acute abnormalities are seen to explain right lower quadrant pain. 2. Cardiomegaly with bilateral pleural effusions. ACT 112: Negative or not required by law. Electronically signed by: Enrrique Devi M.D. 06/19/2023 1:10 PM
--- NOTE | 2023-06-19 13:12 | History & Physical Report ---
Date of Service June 19, 2023 Assessment & Plan (1) Fall: Plan: Patient sustained a fall on 06/19 and was down for reportedly 6 hours In the setting of EOH use Endorses bilateral lower quadrant abdominal pain on arrival Head CT revealed NAF Cervical spine CT revealed degenerative changes without evidence of acute bony injury CT abdomen/pelvis revealed no acute abnormalities to explain RLQ pain BioFire negative Total creatinine kinase WNL at 221 Fall precautions A.m. CBC, CMP, mag, LFTs (2) Alcohol abuse: Plan: Patient was reportedly found down surrounded by 14 beer cans Ethyl alcohol level mildly elevated at 11.0 on arrival Lipase WNL at 25 AWSS protocols with phenobarbital as needed Seizure precautions Monitor for signs of withdrawal Continue home dose of gabapentin 100 mg p.o. TID Vitamin B1, B12, and folate levels ordered, pending Continue thiamine 100 mg and folic acid 1 mg p.o. daily Patient will likely require counseling on alcohol cessation (3) Acute hyponatremia: Plan: Na 118 on arrival Trend BMP q4h x 5 Recent [facility] admission from 05/05 - 05/15 involving hyponatremia UA negative for infection, but positive for 3+ proteinuria Urine osmolality low at 301, urine sodium <10, serium sodium 118 Clinically, suspect it is an element of beer potomania Protein/creatinine ratio ordered, pending Recommend fluid restricting, diuresis with Lasix IV, and recheck a.m. labs (4) Elevated serum lactate dehydrogenase: Plan: Elevated lactate at 5.6 on arrival, repeat pending No leukocytosis; afebrile PCT WNL Blood cultures ordered, pending Continue IV fluid resuscitation (5) CHF (congestive heart failure): Plan: BNP elevated at 3917 on arrival Most recent echo on 05/12/2023 revealed LVEF of 25-30%, elevated RVSP at 4050mmHg; mild to moderate gay valvular regurgitation Chest CT revealed small bilateral pleural effusions and cardiomegaly; no evidence of acute fractures or abnormality Recommend 1500 mL fluid restriction once no longer n.p.o. Daily weights Patient is listed as having Lasix 40 mg p.o. BID, but unable to assess if he has been taking Lasix 20mg IV ordered in the ED Continue potassium chloride 10mEq tabs daily (6) Abnormal LFTs: Plan: Total bilirubin elevated at 1.8, AST elevated at 49, alk phos elevated at 109 In the setting of alcohol abuse Repeat AM LFTs (7) T2DM (type 2 diabetes mellitus): Plan: Last A1c 7.4% on 05/06/2023; no need to repeat Glucose 143 on arrival Hold Dorian Continue enalapril Lantus 7u BID while inpatient SSI; with target BSG range 110-140mg/dL, CF 55, carb ratio 18 BSG ACHS T2DM diet Adjust regimen as needed (8) Elevated troponin: Plan: Troponin 67.2-->63.4 on arrival Clinically, patient denies chest pain Continuous telemetry monitoring Nitrostat as needed for chest pain (9) PAF (paroxysmal atrial fibrillation): Plan: EKG on arrival showed A-fib with RVR at 105 bpm; QTc 494 Continue metoprolol Continue apixaban PCU telemetry (10) HTN (hypertension): Plan: While metoprolol 100 mg daily is in the patient's med rec, it looks like it was changed to metoprolol 25 mg p.o. BID on 05/22 Continue metoprolol (11) HLD (hyperlipidemia): Plan: Continue atorvastatin (12) COPD (chronic obstructive pulmonary disease): Plan: Continue home inhalers as needed (13) Hypothyroidism: Plan: Continue levothyroxine (14) GERD (gastroesophageal reflux disease): Plan: Continue famotidine (15) CAD (coronary atherosclerotic disease): Plan: Hx of cardiac cath on 10/11/2022 Continue metoprolol, enalapril, atorvastatin, Plavix Eschar noted on left 1st toe; ?PAD XR left foot/ankle ordered, pending Arterial US of LLE ordered, pending (16) Anemia: Plan: Hgb 12.2 and Hct 35.1 at time of admission No signs of active bleeding on arrival; ?Chronic Monitor a.m. CBCs (17) Urine retention: Plan: Perez catheter placed on admission (18) Acute encephalopathy: Plan: Wernicke's +/- alcohol intoxication +/- hyponatremia +/- concussion from fall Plan Disposition: Admit to PCU telemetry Full code Keep n.p.o. for now; then advance to AHA, T2DM, low-salt diet as tolerated (recommend 1500 mL fluid restriction) VTE PPx: On Eliquis History of Present Illness Chief Complaint: Fall, abdominal pain Primary Care Provider: DO Edi Mcgrath is a 73-year-old male with PMH of COPD, HLD, GERD, anxiety, HTN, paroxysmal A-fib, CHF, hypothyroidism, ACS, T2DM, and alcohol abuse. He presented via EMS for a fall on 06/19 and was reportedly unable to get up for 6 hours. Patient is a poor historian on arrival. Patient was found on the ground surrounded by 14 beer cans, and confirms on arrival that he drank around 14 beers last night; denies hard alcohol use. Zofran 4 mg and nebulizer was given en route. Patient thinks his bilateral lower quadrant abdominal pain is due to drinking "too much booze". However, when asked to point to where the pain is at, the patient points to suprapubic region. He is unsure if he took his morning medications; he is unable to provide an accurate report/record of his med list given his current state. He is unable to confirm or deny if he has had prior episodes of alcohol withdrawal or seizures. He is unable to relay history of whether he fell, struck his head, loss conscious, or how long he was down for. After insertion of Perez catheter in the ED, patient reports his abdominal pain has somewhat subsided, but reports that it is still a "burning" pain that comes and goes intermittently. Patient lives alone. He denies at home oxygen use. He has difficulty focusing and responding to questions at time of admission. Patient is hypertensive at 169/111, tachycardic at 107 bpm, and tachypneic at 25 RPM at time of admission. ED course: Acetaminophen 1000 mg IV NSS 1650 mL IV Perez catheter placed ROS: Difficulty to assess given patient's current status Patient endorses lower abdominal/suprapubic pain, burning with urination (catheter in place), and mild SOB at rest. Patient denies fever, chills, sweating, chest pain, nausea, vomiting, or numbness/tingling/pain in arms or legs. Attempted to call [email or web address] to provide updates, but was unable to reach them. Nursing staff reported that they would be in tomorrow on 06/20. Allergies Allergy/AdvReac Type Severity Reaction Status Date / Time No Known Allergies Allergy Verified 06/09/23 12:23 Home Medications Medication Instructions Recorded Confirmed Type Shower Chair #1 ea 08/19/22 02/20/23 Rx albuterol sulfate 90 mcg/actuation 2 puff inhalation Q4H PRN 10/20/22 06/09/23 Rx aerosol inhaler Wheezing/Dyspnea #8.5 grams apixaban 5 mg tablet (Eliquis) 5 mg PO BID 30 days #60 tabs 10/24/22 06/09/23 Rx atorvastatin 40 mg tablet 40 mg PO DAILY #30 tabs 10/24/22 06/09/23 Rx clopidogrel 75 mg tablet 75 mg PO QAM 30 days #30 tabs 10/24/22 06/09/23 Rx enalapril maleate 10 mg tablet 10 mg PO DAILY 30 days #30 tabs 10/24/22 06/09/23 Rx fluticasone 250 mcg-salmeterol 50 1 inh inhalation BID #60 ea 10/24/22 06/09/23 Rx mcg/dose blistr powdr for inhalation (Advair Diskus) furosemide 20 mg tablet 40 mg (2 x 20 mg) PO DAILY #60 tabs 10/24/22 06/09/23 Rx metoprolol succinate 100 mg 100 mg PO DAILY #30 tabs 10/24/22 06/09/23 Rx tablet,extended release 24 hr potassium chloride 10 mEq 10 meq PO DAILY #30 tabs 10/25/22 06/09/23 Rx tablet,extended release gabapentin 100 mg capsule 100 mg PO TID 01/29/23 06/09/23 History nitroglycerin 0.4 mg sublingual 0.4 mg sublingual Q5M PRN chest 03/22/23 06/09/23 Rx tablet (Nitrostat) pain #25 tabs dapagliflozin propanediol 10 mg 10 mg PO DAILY 05/05/23 06/09/23 History tablet (Farxiga) clotrimazole 1 % topical cream 1 applic EXT BID apply to your 05/15/23 06/09/23 Rx feet and between toes bilateral feet #30 grams famotidine 20 mg tablet 20 mg PO BID #60 tabs 05/15/23 06/09/23 Rx folic acid 1 mg tablet 1 mg PO DAILY #30 tabs 05/15/23 06/09/23 Rx insulin glargine 100 unit/mL (3 10 unit (0.1 mL) subcut DAILY #15 05/15/23 06/09/23 Rx mL) subcutaneous pen (Lantus mL Solostar U-100 Insulin) levothyroxine 50 mcg tablet 50 mcg PO DAILYBB #30 tabs 05/15/23 06/09/23 Rx (Synthroid) thiamine HCl (vitamin B1) 100 mg 100 mg PO QAM #30 tabs 05/15/23 06/09/23 Rx tablet metoprolol succinate 25 mg 25 mg PO BID 05/30/23 06/09/23 History tablet,extended release 24 hr Past Med/Surg History Medical History (Updated 06/20/23 @ 08:38 by Ace Fox MD) Anemia CAD (coronary atherosclerotic disease) Fall Hyponatremia NSTEMI (non-ST elevated myocardial infarction) T2DM (type 2 diabetes mellitus) History of anesthesia reaction "my heart started to race" - during eye surgery [facility] PAD (peripheral artery disease) Osteoarthritis [place] (hard of hearing) History of myocardial infarction 1980s Poor historian History of stroke 09/2021 - no deficits PAD (peripheral artery disease) Alcohol abuse Acute hyponatremia Acute kidney injury DVT prophylaxis Acute systolic heart failure Noncompliance Increasing shortness of breath Elevated troponin Atrial fibrillation follows with [facility] Hypervolemia COPD (chronic obstructive pulmonary disease) CHF (congestive heart failure) NICM (nonischemic cardiomyopathy) Alcohol abuse HTN (hypertension) Anxiety GERD (gastroesophageal reflux disease) CKD (chronic kidney disease), stage III Left ventricular dysfunction Syndesmotic disruption of right ankle Fracture dislocation of right ankle History of left heart catheterization (LHC) "nonocclusive CAD, normal LV function" Alcohol abuse HLD (hyperlipidemia) DM2 (diabetes mellitus, type 2) COPD (chronic obstructive pulmonary disease) Surgical History History of non-cataract eye surgery History of cervical spinal surgery ROM WNL History of vascular surgery History of esophagogastroduodenoscopy (EGD) History of colonoscopy History of cardiac cath 09/2021 [place] - 1 stent 2008-nonocclussive CAD History of ankle surgery Family History Brother Pancreatic cancer Cancer Mother Diabetes Myocardial infarction Sister Diabetes Father Heart disease Myocardial infarction Other No family history of adverse response to anesthesia Denies family history of Ovarian cancer Prostate cancer Breast cancer Colorectal cancer Social History Smoking Status: Former smoker Tobacco Type: Cigarettes Second Hand Exposure: Yes; Do You Dip or Chew Tobacco: No; Hx Alcohol Use: Yes Alcohol type: beer Alcohol Intake Frequency: 4 or More x per/Week Hx Substance Use: Yes Substance Use Type Other:: denies any current use Preferred Language: Kinyarwanda Communication Ability: Effective Visual Impairment: No Limitations Hearing Ability: Hard of Hearing [employer]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 Beliefs That Will Affect Care: None marital status: Single Current Living Situation: Alone current occupational status: retired How many Children do You have: 4 Other Information That Helps Us Care for You: No Feels Safe at Home: Yes Safety Concerns: Feels Safe At This Time Childhood Exposure to Second-Hand Smoke: Yes caffeine: Yes (coffee) during the past year weight has: remained stable Dental Care, Regularly: No Physical Activity Frequency: Daily Seatbelt Use: always Sunscreen Use: No Assistive Devices: Cane Review of Systems 2 Review of Systems: See HPI above Physical Exam 2 Physical Exam: General: Dazed and confused; wide eyes; mild respiratory distress; non-toxic appearing HEENT: normocephalic, atraumatic; no scleral icterus; PERRLA; pupils normal size; dry mucus membrane; vision and hearing intact Neck: supple; no lymphadenopathy; trachea midline Skin: warm, dry without signs of tenting; no cyanosis; no rashes, bruising, lesions, or erythema noted CV: chest wall NTP; irregularly irregular heartbeat; rapid at 112 bpm; S1/S2 normal; 2/6 systolic ejection murmur auscultated at the second ICS MCL; pulses rapid, intact, and symmetric at radial, DP, and PT Lungs: Mild gasping between words when responding to questioning; symmetrical chest wall expansion; clear breath sounds across all lung pritchard w/o adventitious sounds; no wheezing ABD: Soft, NTP; BS present; no rebound/guarding; mild suprapubic TTP; patient is unable to confirm or deny if TTP at RLQ : Perez catheter in place; bright yellow urine in Perez catheter bag MSK: no tics or fasciculations; +2 pitting edema in the LEs B/L, mildly erythematous, firm texture; left side more swollen than right; eschar noted on left 1st toe Neuro: A&O x 2; oriented to name, , location; not oriented to time/month; difficulty responding to questions; unable to assess sensation Results & Data Results & Data Vital Signs (Past 12 Hours) Vital Signs Temp Pulse Pulse Resp BP BP Pulse Ox 06/19/23 12:19 107 H 25 H 169/111 H 96 06/19/23 11:17 104 H 06/19/23 10:41 96 06/19/23 10:41 18 06/19/23 10:41 36.8 C 108 H 18 126/93 96 O2 Del Method 06/19/23 12:19 Room Air 06/19/23 11:17 06/19/23 10:41 06/19/23 10:41 06/19/23 10:41 Room Air Laboratory Results Abnormal lab results 06/19/23 Range/Units 11:47 RBC 4.16 L (4.70-6.10) M/uL Hgb 12.2 L (14.0-18.0) g/dl Hct 35.1 L (42.0-52.0) % RDW Std Deviation 48.3 H (36.4-46.3) fL RDW Coeff of Cloe 15.9 H (11.5-14.5) % Lymph # (Auto) 0.64 L (1.20-3.40) K/uL [place] # (Auto) 0.63 H (0.11-0.59) K/uL Sodium 118 L* (136-145) mmol/L Chloride 85 L (98-107) mmol/L Carbon Dioxide 17 L (21-32) mmol/L Anion Gap 16 H (3-11) Glucose 143 H (70-99(Fasting)) mg/dl Lactate 5.6 H* (0.4-2.0) mmol/L Calcium 8.4 L (8.6-10.3) mg/dl Total Bilirubin 1.8 H (0.2-1.0) mg/dl AST 49 H (13-39) U/L Alkaline Phosphatase 109 H (34-104) U/L Troponin I High Sens 67.2 H* (0-20) pg/ml B-Natriuretic Peptide 3917 H (0-100) pg/ml Ethyl Alcohol mg/dL 11.0 H (<10.0) mg/dl Diagnostic Findings Abdomen/Pelvis CT 06/19/23 11:00 CT abd pelvis wo con CLINICAL HISTORY: fall, RLQ pain TECHNIQUE: Helical axial images of the abdomen and pelvis were obtained. Automated dose lowering techniques and/or adjustment according to patient size were utilized for this exam. This exam was performed without intravenous contrast. COMPARISON: Comparison is made to CT abdomen pelvis 06/09/2023 FINDINGS: Lower chest: Cardiomegaly is partially visualized. Moderate right and small left pleural effusions are seen. Liver: Unremarkable. No focal lesions are seen. Gallbladder and biliary tree: No calcified gallstones. Normal caliber wall. No intra- or extrahepatic biliary ductal dilation. Pancreas: Unremarkable, no focal lesions. Spleen: Unremarkable. Adrenals: Unremarkable. Kidneys and ureters: Unremarkable. Bladder: Diffuse homogeneous wall thickening is seen. Reproductive organs: Prostatic calcifications are seen which may represent prior hemorrhage or granulomatous disease. Bowel: A hiatal hernia is seen. Lymph nodes Retroperitoneal: Unremarkable. Pelvic: Unremarkable. Mesenteric: Unremarkable. Peritoneum: Peritoneal stranding is seen. Vessels: Extensive calcifications are seen. Abdominal wall: Bilateral fat-containing inguinal hernias are seen. A fat- containing umbilical hernia is seen. Bones: Degenerative changes in the visualized spine. IMPRESSION: 1. No acute abnormalities are seen to explain right lower quadrant pain. 2. Cardiomegaly with bilateral pleural effusions. ACT 112: Negative or not required by law. Electronically signed by: Enrrique Devi M.D. 06/19/2023 1:[address] 06/19/23 11:00 CT cervical spine wo con CLINICAL HISTORY: fall TECHNIQUE: Multidetector row helical CT of the cervical spine was performed without administration of intravenous contrast. Coronal and sagittal reformations were obtained. Automated dose lowering techniques and/or adjustment according to patient size were utilized for this exam. Comparison: Comparison is made to CT cervical spine 10/06/2021 FINDINGS: No acute fractures or subluxations are identified. Degenerative changes are seen in the visualized spine. The alignment is normal. Small bilateral pleural effusions are seen. IMPRESSION: Degenerative changes without evidence of acute bony injury. ACT 112: Negative or not required by law. Electronically signed by: Enrrique Devi M.D. 06/19/2023 12:[address] 06/19/23 11:00 CT head/brain wo con CLINICAL HISTORY: fall Technique: Contiguous axial CT images of the head were acquired from the base of the skull to the vertex without intravenous contrast administration. Images were viewed in brain, subdural and bone windows. Automated dose lowering techniques and/or adjustment according to patient size were utilized for this exam. Comparison: None available at the time of this dictation. Findings: Areas of decreased attenuation are present in the periventricular and subcortical white matter bilaterally consistent with small vessel ischemic disease. Generalized cerebral atrophy with commensurate enlargement of the ventricles, sulci, and cisterns is also present. There is no acute intracranial hemorrhage or evidence of acute territorial infarction. No shift of the midline structures, mass effect, or extra-axial abnormalities are shown. Atherosclerotic calcifications are present in the intracranial segments of the internal carotid arteries. Imaged portions of the paranasal sinuses and mastoid air cells are clear. The orbits appear normal. There are no acute fractures of the calvaria or scalp swelling. Impression: No acute intracranial hemorrhage, no evidence of acute territorial infarction or other acute intracranial disease process. ACT 112: Negative or not required by law. Electronically signed by: Enrrique Devi M.D. 06/19/2023 12:[address] 06/19/23 12:16 CT chest diagnostic wo con CLINICAL HISTORY: fall TECHNIQUE: Multidetector row helical CT of the chest was performed. Coronal and sagittal reformations were obtained. Automated dose lowering techniques and/or adjustment according to patient size were utilized for this exam. Comparison: Comparison is made to CT chest 12/26/2019 FINDINGS: Lungs and pleura: Small right and trace left pleural effusions. Heart and pericardium: Aortic valvular calcifications are seen. Vessels: Severe atherosclerotic changes in the aorta and coronary arteries. Mediastinum and elsie: Subcentimeter lymph nodes are seen. Chest wall and lower neck: Unremarkable. Abdomen: For findings below the diaphragm, please refer to CT of the abdomen dated the same. Bones: Degenerative changes in the thoracic spine. IMPRESSION: Small bilateral pleural effusions and cardiomegaly. No acute abnormalities and in particular no evidence of acute fracture. ACT 112: Negative or not required by law. Electronically signed by: Enrrique Devi M.D. 06/19/2023 1:14 PM Code Status & VTE Plan Code Status Full code VTE Prophylaxis Plan VTE Prophylaxis will be ordered: Yes Supervising Physician Co-Signing Physician Notes I personally saw and examined the patient. I independently reviewed the labs, EKG, imaging, problem list, medication list, past medical history and family history. I verified all greenberg points and agree with Duc Monreal PA-C with the following exceptions and/or additions: 73 year old male presents to the ER with altered mental state following a fall and unable to get up for over 6 hours. Only complaint from patient is lower abdominal pain which appears mostly resolved after Perez catheter insertion. Unclear how much he drinks or when his last drink was. No current chest pain or shortness of breath. No one sided weakness or change in sensation. O/E Alert, orientated to self only, HS increased rate, irregular rhythm, apical 2/6 systolic murmur, Abdo mild suprapubic tenderness, No CVA tenderness, cap refil 8 seconds in toes L > R with cool left foot and purple discoloration per picture above A/P Acute encephalopathy - Wernicke's +/- alcohol intoxication +/- hyponatremia +/- concussion Acute hyponatremia - suspect mostly beer potomania but hypervolemic state may be contributing. NPO. Repeat Na 118 after NSS bolus given in the ER therefore 100ml hypertonic saline given with 20mg IV lasix Hypervolemic state - suspect combination of nephrotic range proteinuria and CHF. No urgent need for diuresis but will give Lasix 20mg IV now to maintain slight negative balance. As he stop Alcohol withdrawal - load with 390mg IV phenobarbital, additional x2 doses of 65mg IV if AWSS > 8. PRN q6h dose if RASS >=2 or having hallucinations. RASS score q4h. Tapering PO dosing following this A. fib RVR - a., fib is not a new diagnosis, on anticoagulation with Eliquis ?non compliance with medications +/- withdrawal. Continue his usual metoprolol for rate control Fall - CK normal, not complaining of any pain since the fall Left lower extremity poor perfusion - known PAD s/p angioplasty in September 2021, denies pain, US arterial doppler ordered as appears to have developing arterial appearing ulcers/blisters Lactic acidosis - suspected type B with adequate oxygen delivery. suspect will improve as liver and thiamine levels improve. If anion gap remains consider limb/bowel ischemia as cause as CT A/P done without IV contrast. No hypotension or expected infection at this time. PG Care Time/CCT Total # of Minutes Spent Total Time Spent with Patient: Total time spent is greater than 50% in coordination of care (as documented) at patient's floor/unit and/or counseling patient: [place] [address] INT INP/OBS CARE 3/75MIN Patient Type Established Medical Decision Making High Complexity Diagnoses Fall W19.XXXA Encounter type: initial encounter Alcohol abuse F10.10 Acute hyponatremia E87.1 Elevated serum lactate dehydrogenase R74.02 CHF (congestive heart failure) I50.9 Abnormal LFTs R79.89 T2DM (type 2 diabetes mellitus) E11.9 Elevated troponin R77.8 PAF (paroxysmal atrial fibrillation) I48.0 HTN (hypertension) I10 HLD (hyperlipidemia) E78.5 COPD (chronic obstructive pulmonary disease) J44.9 Hypothyroidism E03.9 GERD (gastroesophageal reflux disease) K21.9 CAD (coronary atherosclerotic disease) I25.10 Anemia D64.9 Urine retention R33.9 Acute encephalopathy G93.40 (1) Fall Encounter type: initial encounter Qualified Code(s): W19.XXXA - Unspecified fall, initial encounter
--- NOTE | 2023-06-19 13:16 | CT Scan Report ---
CT chest diagnostic wo con CLINICAL HISTORY: fall TECHNIQUE: Multidetector row helical CT of the chest was performed. Coronal and sagittal reformations were obtained. Automated dose lowering techniques and/or adjustment according to patient size were u tilized for this exam. Comparison: Comparison is made to CT chest 12/26/2019 FINDINGS: Lungs and pleura: Small right and trace left pleural effusions. Heart and pericardium: Aortic valvular calcifications are seen. Vessels: Severe atherosclerotic changes in the aorta and coronary arteries. Mediastinum and elsie: Subcentimeter lymph nodes are seen. Chest wall and lower neck: Unremarkable. Abdomen: For findings below the diaphragm, please refer to CT of the abdomen dated the same. Bones: Degenerative changes in the thoracic spine. IMPRESSION: Small bilateral pleural effusions and cardiomegaly. No acute abnormalities and in particular no evide nce of acute fracture. ACT 112: Negative or not required by law. Electronically signed by: Enrrique Devi M.D. 06/19/2023 1:14 PM
[2023-06-19 13:35] LABS: Appearance Urine Clear (Clear); Bacteria Urine Automated Negative (Negative); Bilirubin Urine Negative (Negative); Blood Urine Trace (Negative); Color Urine Yellow; Epithelial Cell Urine Auto 0-5 /lpf (0-5); Glucose Urine UA Negative (Negative); Ketones Urine Negative (Negative); Leukocyte Esterase Urine Negative (Negative); Nitrite Urine Negative (Negative); Protein Urine 3+ (Negative); RBC Urine Automated 0-4 /hpf (0-4); Specific Gravity Urine 1.013 (1.000-1.030); Urobilinogen Urine Negative (Negative); WBC Urine Automated 0 /hpf (0-5); pH Urine 5.5 (4.5-7.5)
[2023-06-19] MEDS ORDERED: PHENobarbital sodium 65 MG/ML VIAL IV STA (13:38)
[2023-06-19] MEDS ORDERED: PHENobarbital PO Alcohol Withdrawal PO STA (13:38)
[2023-06-19] MEDS ORDERED: PHENobarbital sodium 65 MG/ML VIAL IV PRN ×2 (13:53→15:38)
[2023-06-19] MEDS ORDERED: PHENOBARBITAL SODIUM IV STA (14:05)
[2023-06-19] MEDS ORDERED: SODIUM CHLORIDE 0.9% IV STA (14:05)
[2023-06-19 14:29] LABS: Magnesium 2.2 mg/dl (1.7-2.4)
--- NOTE | 2023-06-19 14:45 | Emergency Department Note ---
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 He noted he was very weak. He was also drinking alcohol. He was unable to get up for over 6 hours. Patient was complaining of some abdominal tenderness which was worse in the right lower quadrant. He denied any specific injury from the fall. He did have nausea. Patient does have a history of CHF. Patient did have some tenderness. He was given a dose of IV acetaminophen for pain. He was started on gentle IV fluids due to his history of CHF. Patient underwent CT imaging of the head, neck, chest and abdomen and pelvis. No traumatic findings were noted on CT imaging. No issues were seen to explain the lower quadrant abdominal pain per radiology. Patient does have some mild effusions noted on chest CT but no evidence of pneumonia. Patient was found to have marked hyponatremia on his chemistry panel. He does have a mild elevation of his troponin but has had that in the past as well. Patient did receive saline at 125 an hour and a 500 bolus. He did not receive any additional boluses from me in the emergency department. Patient is in a tough position as he has an elevated lactate without signs of infection. Urine is clear. Procalcitonin is negative. This may be due to his downtime. He does not have any current hypotension or fever. Patient was mildly tachycardic but not significantly. He is in A-fib. Significant fluid resuscitation cannot be done due to his hyponatremia and concerns for rapid correction. He also has a significant elevation of his BNP and history of CHF. Careful fluid management will be necessary in the hospital given the hyponatremia. Patient's blood alcohol level was minimally detectable. Consultation was made with [facility] hospitalist service. Case discussed and diagnostics were reviewed. Patient was evaluated in the ER admitted for further management. Care/management discussed with: manager asset Level of care consideration(s): After review of the information above and other included data, I feel the patient requires admission Triage Nursing notes: reviewed and agree them. Vital Signs: reviewed and remarkable for no significant abnormalities Additional History obtained from: none Chronic Medical/Social Conditions affecting care: CHF, A-fib Prior/ Outside/ External records reviewed: none Differential Diagnosis: Infection, dehydration, metabolic abnormality, hypo/hyperglycemia, electrolyte disturbance, anemia, hypoxia, cardiac sources, intracerebral event, toxicologic, neurologic, as well as other pathologies. Diagnostics, independently interpreted by me: ECG: Twelve-lead ECG reveals atrial fibrillation with RVR at 105 bpm. PVCs. Anterior Q waves present. Cardiac Monitoring: Cardiac monitoring ordered by me: The patient was placed on continuous cardiac monitoring and observed. It revealed a atrial fibrillation at 99 bpm Medical decision rules: none Imaging studies: CT imaging of the head and cervical spine negative for traumatic findings. No hemorrhage. CT imaging of the chest is consistent with pleural effusion. No pneumonia or pneumothorax. CT imaging of the abdomen and pelvis is negative for acute pathology. No obstruction. No free air. HPI: 73 year old Male arrives for evaluation of a fall and abdominal pain. Patient states that his abdomen was bothering him. He was recently getting over COVID-19. He did admit to drinking some alcohol. He fell down in the middle of the night. He does not feel he hurt himself significantly but he was so weak he could not get up. He was nauseated. EMS did provide Zofran and gave him a nebulizer. He did have a cough. Patient feels better regarding his breathing. He notes that his abdomen is tender mostly in the right lower quadrant. Patient does live alone. Unable to quantify pain. Patient also notes some difficulty urinating pt denies LOC, headache, fevers, chills, diaphoresis, visual changes, neck pain, chest pain, vomiting, back pain, melena, hematochezia, rash, or other complaints. PAST MEDICAL HISTORY: See Below, CHF, A-fib PAST SURGICAL HISTORY: See Below, SOCIAL HISTORY: See Below, drinks alcohol HOME MEDICATIONS: See Below ALLERGIES: See Below VITALS: See Below PHYSICAL EXAMINATION: GENERAL: Awake, alert, uncomfortable-appearing, in no distress HENT: Normocephalic, atraumatic. Oropharynx unremarkable. EYES: Normal conjunctiva. Sclera non-icteric. NECK: Inspection normal. Non-tender. Supple. No nuchal rigidity. FROM. No masses. RESPIRATORY: Clear to auscultation. No wheezes. No rales. Normal respiratory effort. CARDIAC: Tachycardic rate. Irregular rhythm. No murmurs. No rubs. Extremities slightly cool to the touch with slightly decreased cap refill of 2 to 3 seconds. Pulses equal. No JVD. GI: Soft, non-distended. Mild right lower quadrant tenderness to palpation. No rebound or guarding. No masses. RECTAL: Deferred. MUSCULOSKELETAL: Atraumatic. Chest examination reveals no tenderness. The back is symmetrical on inspection without obvious abnormality. There is no CVA tenderness to palpation. No joint edema. LOWER EXTREMITIES: Calves are equal size bilaterally and non-tender. No edema. No discoloration. NEURO: Normal sensorium. No sensory or motor deficits noted. SKIN: No rash or jaundice noted. PROCEDURES: none CRITICAL CARE: I have personally spent 30 minutes of critical care time in the direct management of this patient. This includes bedside care, interpretation of diagnostic studies, and testing, discussion with consultants, patient, and other required patient management activities. These minutes are in excess of all separately billable procedures. OBSERVATION NOTE: none Past Med/Surg History Medical History (Updated 06/19/23 @ 14:45 by Kimberly Montesinos MD) Anemia CAD (coronary atherosclerotic disease) Fall Hyponatremia NSTEMI (non-ST elevated myocardial infarction) T2DM (type 2 diabetes mellitus) History of anesthesia reaction "my heart started to race" - during eye surgery [facility] PAD (peripheral artery disease) Osteoarthritis [place] (hard of hearing) History of myocardial infarction Poor historian History of stroke 09/2021 - no deficits PAD (peripheral artery disease) Alcohol abuse Acute hyponatremia Acute kidney injury DVT prophylaxis Acute systolic heart failure Noncompliance Increasing shortness of breath Elevated troponin Atrial fibrillation follows with [facility] Hypervolemia COPD (chronic obstructive pulmonary disease) CHF (congestive heart failure) NICM (nonischemic cardiomyopathy) Alcohol abuse HTN (hypertension) Anxiety GERD (gastroesophageal reflux disease) CKD (chronic kidney disease), stage III Left ventricular dysfunction Syndesmotic disruption of right ankle Fracture dislocation of right ankle History of left heart catheterization (LHC) "nonocclusive CAD, normal LV function" Alcohol abuse HLD (hyperlipidemia) DM2 (diabetes mellitus, type 2) COPD (chronic obstructive pulmonary disease) Surgical History History of non-cataract eye surgery History of cervical spinal surgery ROM WNL History of vascular surgery History of esophagogastroduodenoscopy (EGD) History of colonoscopy History of cardiac cath 09/2021 [place] - 1 stent 2008-nonocclussive CAD History of ankle surgery Family History Brother Pancreatic cancer Cancer Mother Diabetes Myocardial infarction Sister Diabetes Father Heart disease Myocardial infarction Other No family history of adverse response to anesthesia Denies family history of Ovarian cancer Prostate cancer Breast cancer Colorectal cancer Social History Smoking Status: Former smoker Tobacco Type: Cigarettes Second Hand Exposure: Yes; Do You Dip or Chew Tobacco: No; Hx Alcohol Use: Yes Alcohol type: beer Alcohol Intake Frequency: 4 or More x per/Week Hx Substance Use: No Preferred Language: Honduran Communication Ability: Effective Visual Impairment: No Limitations Hearing Ability: Hard of Hearing Jet Inspector Required: No Beliefs That Will Affect Care: None marital status: Single Current Living Situation: Alone current occupational status: retired How many Children do You have: 4 Feels Safe at Home: Yes Childhood Exposure to Second-Hand Smoke: Yes caffeine: Yes (coffee) during the past year weight has: remained stable Dental Care, Regularly: No Physical Activity Frequency: Daily Seatbelt Use: always Sunscreen Use: No Assistive Devices: Cane and Walker Allergies Allergies Allergy/AdvReac Type Severity Reaction Status Date / Time No Known Allergies Allergy Verified 06/09/23 12:23 Home Meds Home Medications Medication Instructions Recorded Confirmed gabapentin 100 mg capsule 100 mg PO TID 01/29/23 06/09/23 dapagliflozin propanediol 10 mg 10 mg PO DAILY 05/05/23 06/09/23 tablet (Farxiga) metoprolol succinate 25 mg 25 mg PO BID 05/30/23 06/09/23 tablet,extended release 24 hr Previous Rx's Medication Instructions Recorded Shower Chair #1 ea 08/19/22 albuterol sulfate 90 mcg/actuation 2 puff inhalation Q4H PRN 10/20/22 aerosol inhaler Wheezing/Dyspnea #8.5 grams apixaban 5 mg tablet (Eliquis) 5 mg PO BID 30 days #60 tabs 10/24/22 atorvastatin 40 mg tablet 40 mg PO DAILY #30 tabs 10/24/22 clopidogrel 75 mg tablet 75 mg PO QAM 30 days #30 tabs 10/24/22 enalapril maleate 10 mg tablet 10 mg PO DAILY 30 days #30 tabs 10/24/22 fluticasone 250 mcg-salmeterol 50 1 inh inhalation BID #60 ea 10/24/22 mcg/dose blistr powdr for inhalation (Advair Diskus) furosemide 20 mg tablet 40 mg (2 x 20 mg) PO DAILY #60 tabs 10/24/22 metoprolol succinate 100 mg 100 mg PO DAILY #30 tabs 10/24/22 tablet,extended release 24 hr potassium chloride 10 mEq 10 meq PO DAILY #30 tabs 10/25/22 tablet,extended release nitroglycerin 0.4 mg sublingual 0.4 mg sublingual Q5M PRN chest 03/22/23 tablet (Nitrostat) pain #25 tabs clotrimazole 1 % topical cream 1 applic EXT BID apply to your 05/15/23 feet and between toes bilateral feet #30 grams famotidine 20 mg tablet 20 mg PO BID #60 tabs 05/15/23 folic acid 1 mg tablet 1 mg PO DAILY #30 tabs 05/15/23 insulin glargine 100 unit/mL (3 10 unit (0.1 mL) subcut DAILY #15 05/15/23 mL) subcutaneous pen (Lantus mL Solostar U-100 Insulin) levothyroxine 50 mcg tablet 50 mcg PO DAILYBB #30 tabs 05/15/23 (Synthroid) thiamine HCl (vitamin B1) 100 mg 100 mg PO QAM #30 tabs 05/15/23 tablet Results & Data (ED) Vital Signs Vital Signs - 24 hr 06/19/23 10:41 06/19/23 10:41 06/19/23 10:41 Temperature 36.8 C Temperature Source Oral Pulse Rate 108 H Pulse Rate [Apical] Respiratory Rate 18 18 Blood Pressure 126/93 Blood Pressure [Right Arm] Blood Pressure Mean 104 Blood Pressure Mean [Right Arm] Pulse Oximetry 96 96 Oxygen Delivery Method Room Air Sepsis Recent Fever Within 48 Hours No Sepsis New/Unexplained Change in Mental Status N/A Sepsis Action Taken by Nursing No Action Required 06/19/23 11:17 06/19/23 12:19 06/19/23 14:02 Temperature Temperature Source Pulse Rate 104 H 112 H Pulse Rate [Apical] 107 H Respiratory Rate 25 H Blood Pressure Blood Pressure [Right Arm] 169/111 H Blood Pressure Mean Blood Pressure Mean [Right Arm] 130 Pulse Oximetry 96 Oxygen Delivery Method Room Air Sepsis Recent Fever Within 48 Hours Sepsis New/Unexplained Change in Mental Status Sepsis Action Taken by Nursing Laboratory Data 06/19/23 11:47 06/19/23 11:47 Lab Results 06/19/23 06/19/23 06/19/23 Range/Units 11:35 11:47 11:56 WBC 6.92 (4.8-10.8) K/ul RBC 4.16 L (4.70-6.10) M/uL Hgb 12.2 L (14.0-18.0) g/dl Hct 35.1 L (42.0-52.0) % MCV 84.4 (80.0-100.0) fL MCH 29.3 (25.0-34.0) pg MCHC 34.8 (32.0-36.0) g/dL RDW Std Deviation 48.3 H (36.4-46.3) fL RDW Coeff of Cole 15.9 H (11.5-14.5) % Plt Count 179 (130-400) K/uL MPV 11.4 (9.4-12.4) fL Immature Gran % (Auto) 0.6 % Neut % (Auto) 80.8 % Lymph % (Auto) 9.2 % Sw[place] % (Auto) 9.1 % Eos % (Auto) 0.0 % Baso % (Auto) 0.3 % Neut # (Auto) 5.59 (1.40-6.50) K/uL Lymph # (Auto) 0.64 L (1.20-3.40) K/uL Swisher # (Auto) 0.63 H (0.11-0.59) K/uL Eos # (Auto) 0.00 (0.00-0.50) K/uL Baso # (Auto) 0.02 (0.00-0.20) K/uL Immature Gran # (Auto) 0.04 (0.01-0.20) K/uL Sodium 118 L* (136-145) mmol/L Potassium 4.1 (3.5-5.1) mmol/L Chloride 85 L (98-107) mmol/L Carbon Dioxide 17 L (21-32) mmol/L Anion Gap 16 H (3-11) BUN 15 (6-23) mg/dl Creatinine 1.17 (0.6-1.4) mg/dl Est Cr Clr Drug Dosing 55.2 ml/min Est GFR ( Amer) 71.8 ml/min Est GFR (Non-Af Amer) 61.9 ml/min BUN/Creatinine Ratio 12.8 (10-20) Glucose 143 H (70-99(Fasting)) mg/dl Lactate 5.6 H* (0.4-2.0) mmol/L Calcium 8.4 L (8.6-10.3) mg/dl Magnesium 2.2 (1.7-2.4) mg/dl Total Bilirubin 1.8 H (0.2-1.0) mg/dl AST 49 H (13-39) U/L ALT 33 (7-52) U/L Alkaline Phosphatase 109 H (34-104) U/L Total Creatine Kinase 221 (30-223) U/L Troponin I High Sens 67.2 H* (0-20) pg/ml B-Natriuretic Peptide 3917 H (0-100) pg/ml Total Protein 6.9 (6.0-8.3) gm/dl Albumin 3.7 (3.4-5.0) gm/dl Globulin 3.2 (2.5-4.0) gm/dl Albumin/Globulin Ratio 1.2 (0.9-2) Lipase 25 (11-82) U/L Procalcitonin 0.09 (0-0.5) ng/ml Urine Color Urine Appearance (Clear) Urine pH (4.5-7.5) Ur Specific [place] (1.000-1.030) Urine Protein (Negative) Urine Glucose (UA) (Negative) Urine Ketones (Negative) Urine Blood (Negative) Urine Nitrite (Negative) Urine Bilirubin (Negative) Urine Urobilinogen (Negative) Ur Leukocyte Esterase (Negative) Urine WBC (Auto) (0-5) /hpf Urine RBC (Auto) (0-4) /hpf U Hyaline Cast (Auto) (0-5) /lpf U Epithel Cells (Auto) (0-5) /lpf Urine Bacteria (Auto) (Negative) Urine Osmolality (500-800) mOsm/kg Ur Random Sodium mmol/L Ethyl Alcohol mg/dL 11.0 H (<10.0) mg/dl Adenovirus (PCR) Not Detected (NotDetected) B. pertussis DNA (PCR) Not Detected (NotDetected) B.parapertussis DNA PCR Not Detected (NotDetected) C. pneumoniae DNA (PCR) Not Detected (NotDetected) Coronavirus OC43 (PCR) Not Detected (NotDetected) Coronavirus HKU1 (PCR) Not Detected (NotDetected) Coronavirus 229E (PCR) Not Detected (NotDetected) SARS-CoV-2 (PCR) Not Detected (NotDetected) Coronavirus NL63 (PCR) Not Detected (NotDetected) Human Metapneumovir PCR Not Detected (NotDetected) Influenza Type A (PCR) Not Detected (NotDetected) Influenza Type B (PCR) Not Detected (NotDetected) M. pneumoniae (PCR) Not Detected (NotDetected) Parainfluenza 1 (PCR) Not Detected (NotDetected) Parainfluenza 2 (PCR) Not Detected (NotDetected) Parainfluenza 3 (PCR) Not Detected (NotDetected) Parainfluenza 4 (PCR) Not Detected (NotDetected) RSV (PCR) Not Detected (NotDetected) Entero/Rhino (PCR) Not Detected (NotDetected) 06/19/23 Range/Units 12:29 WBC (4.8-10.8) K/ul RBC (4.70-6.10) M/uL Hgb (14.0-18.0) g/dl Hct (42.0-52.0) % MCV (80.0-100.0) fL MCH (25.0-34.0) pg MCHC (32.0-36.0) g/dL RDW Std Deviation (36.4-46.3) fL RDW Coeff of Cole (11.5-14.5) % Plt Count (130-400) K/uL MPV (9.4-12.4) fL Immature Gran % (Auto) % Neut % (Auto) % Lymph % (Auto) % [place] % (Auto) % Eos % (Auto) % Baso % (Auto) % Neut # (Auto) (1.40-6.50) K/uL Lymph # (Auto) (1.20-3.40) K/uL [place] # (Auto) (0.11-0.59) K/uL Eos # (Auto) (0.00-0.50) K/uL Baso # (Auto) (0.00-0.20) K/uL Immature Gran # (Auto) (0.01-0.20) K/uL Sodium (136-145) mmol/L Potassium (3.5-5.1) mmol/L Chloride (98-107) mmol/L Carbon Dioxide (21-32) mmol/L Anion Gap (3-11) BUN (6-23) mg/dl Creatinine (0.6-1.4) mg/dl Est Cr Clr Drug Dosing ml/min Est GFR ( Amer) ml/min Est GFR (Non-Af Amer) ml/min BUN/Creatinine Ratio (10-20) Glucose (70-99(Fasting)) mg/dl Lactate (0.4-2.0) mmol/L Calcium (8.6-10.3) mg/dl Magnesium (1.7-2.4) mg/dl Total Bilirubin (0.2-1.0) mg/dl AST (13-39) U/L ALT (7-52) U/L Alkaline Phosphatase (34-104) U/L Total Creatine Kinase (30-223) U/L Troponin I High Sens (0-20) pg/ml B-Natriuretic Peptide (0-100) pg/ml Total Protein (6.0-8.3) gm/dl Albumin (3.4-5.0) gm/dl Globulin (2.5-4.0) gm/dl Albumin/Globulin Ratio (0.9-2) Lipase (11-82) U/L Procalcitonin (0-0.5) ng/ml Urine Color Yellow Urine Appearance Clear (Clear) Urine pH 5.5 (4.5-7.5) Ur Specific [place] 1.013 (1.000-1.030) Urine Protein 3+ H (Negative) Urine Glucose (UA) Negative (Negative) Urine Ketones Negative (Negative) Urine Blood Trace H (Negative) Urine Nitrite Negative (Negative) Urine Bilirubin Negative (Negative) Urine Urobilinogen Negative (Negative) Ur Leukocyte Esterase Negative (Negative) Urine WBC (Auto) 0 (0-5) /hpf Urine RBC (Auto) 0-4 (0-4) /hpf U Hyaline Cast (Auto) 1-5 (0-5) /lpf U Epithel Cells (Auto) 0-5 (0-5) /lpf Urine Bacteria (Auto) Negative (Negative) Urine Osmolality 301 L (500-800) mOsm/kg Ur Random Sodium < 10 mmol/L Ethyl Alcohol mg/dL (<10.0) mg/dl Adenovirus (PCR) (NotDetected) B. pertussis DNA (PCR) (NotDetected) B.parapertussis DNA PCR (NotDetected) C. pneumoniae DNA (PCR) (NotDetected) Coronavirus OC43 (PCR) (NotDetected) Coronavirus HKU1 (PCR) (NotDetected) Coronavirus 229E (PCR) (NotDetected) SARS-CoV-2 (PCR) (NotDetected) Coronavirus NL63 (PCR) (NotDetected) Human Metapneumovir PCR (NotDetected) Influenza Type A (PCR) (NotDetected) Influenza Type B (PCR) (NotDetected) M. pneumoniae (PCR) (NotDetected) Parainfluenza 1 (PCR) (NotDetected) Parainfluenza 2 (PCR) (NotDetected) Parainfluenza 3 (PCR) (NotDetected) Parainfluenza 4 (PCR) (NotDetected) RSV (PCR) (NotDetected) Entero/Rhino (PCR) (NotDetected) Administered Medications Discontinued Medications Sodium Chloride (Nss) 1,000 mls @ 125 mls/hr IV .Q8H STA Stop: 06/19/23 18:34 Last Admin: 06/19/23 11:13 Dose: 125 mls/hr Documented By: ACC Sodium Chloride (Nss) 500 mls @ 999 mls/hr IV .Q31M ONE Stop: 06/19/23 11:30 Last Infusion: 06/19/23 11:43 Dose: Infused Documented By: Admin: 06/19/23 11:11 Dose: 999 mls/hr Documented By: ACC Acetaminophen (Ofirmev) 1,000 mg in 100 mls @ 400 mls/hr IV NOW STA Stop: 06/19/23 11:14 Last Infusion: 06/19/23 11:54 Dose: Infused Documented By: Admin: 06/19/23 11:36 Dose: 400 mls/hr Documented By: ACC Imaging Data Radiologist's Impression: Abdomen/Pelvis CT 06/19/23 11:00 CT abd pelvis wo con CLINICAL HISTORY: fall, RLQ pain TECHNIQUE: Helical axial images of the abdomen and pelvis were obtained. Automated dose lowering techniques and/or adjustment according to patient size were utilized for this exam. This exam was performed without intravenous contrast. COMPARISON: Comparison is made to CT abdomen pelvis 06/09/2023 FINDINGS: Lower chest: Cardiomegaly is partially visualized. Moderate right and small left pleural effusions are seen. Liver: Unremarkable. No focal lesions are seen. Gallbladder and biliary tree: No calcified gallstones. Normal caliber wall. No intra- or extrahepatic biliary ductal dilation. Pancreas: Unremarkable, no focal lesions. Spleen: Unremarkable. Adrenals: Unremarkable. Kidneys and ureters: Unremarkable. Bladder: Diffuse homogeneous wall thickening is seen. Reproductive organs: Prostatic calcifications are seen which may represent prior hemorrhage or granulomatous disease. Bowel: A hiatal hernia is seen. Lymph nodes Retroperitoneal: Unremarkable. Pelvic: Unremarkable. Mesenteric: Unremarkable. Peritoneum: Peritoneal stranding is seen. Vessels: Extensive calcifications are seen. Abdominal wall: Bilateral fat-containing inguinal hernias are seen. A fat- containing umbilical hernia is seen. Bones: Degenerative changes in the visualized spine. IMPRESSION: 1. No acute abnormalities are seen to explain right lower quadrant pain. 2. Cardiomegaly with bilateral pleural effusions. ACT 112: Negative or not required by law. Electronically signed by: Enrrique Devi M.D. 06/19/2023 1:[address] 06/19/23 11:00 CT cervical spine wo con CLINICAL HISTORY: fall TECHNIQUE: Multidetector row helical CT of the cervical spine was performed without administration of intravenous contrast. Coronal and sagittal reformations were obtained. Automated dose lowering techniques and/or adjustment according to patient size were utilized for this exam. Comparison: Comparison is made to CT cervical spine 10/06/2021 FINDINGS: No acute fractures or subluxations are identified. Degenerative changes are seen in the visualized spine. The alignment is normal. Small bilateral pleural effusions are seen. IMPRESSION: Degenerative changes without evidence of acute bony injury. ACT 112: Negative or not required by law. Electronically signed by: Enrrique Devi M.D. 06/19/2023 12:[address] 06/19/23 11:00 CT head/brain wo con CLINICAL HISTORY: fall Technique: Contiguous axial CT images of the head were acquired from the base of the skull to the vertex without intravenous contrast administration. Images were viewed in brain, subdural and bone windows. Automated dose lowering techniques and/or adjustment according to patient size were utilized for this exam. Comparison: None available at the time of this dictation. Findings: Areas of decreased attenuation are present in the periventricular and subcortical white matter bilaterally consistent with small vessel ischemic disease. Generalized cerebral atrophy with commensurate enlargement of the ventricles, sulci, and cisterns is also present. There is no acute intracranial hemorrhage or evidence of acute territorial infarction. No shift of the midline structures, mass effect, or extra-axial abnormalities are shown. Atherosclerotic calcifications are present in the intracranial segments of the internal carotid arteries. Imaged portions of the paranasal sinuses and mastoid air cells are clear. The orbits appear normal. There are no acute fractures of the calvaria or scalp swelling. Impression: No acute intracranial hemorrhage, no evidence of acute territorial infarction or other acute intracranial disease process. ACT 112: Negative or not required by law. Electronically signed by: Enrrique Devi M.D. 06/19/2023 12:[address] 06/19/23 12:16 CT chest diagnostic wo con CLINICAL HISTORY: fall TECHNIQUE: Multidetector row helical CT of the chest was performed. Coronal and sagittal reformations were obtained. Automated dose lowering techniques and/or adjustment according to patient size were utilized for this exam. Comparison: Comparison is made to CT chest 12/26/2019 FINDINGS: Lungs and pleura: Small right and trace left pleural effusions. Heart and pericardium: Aortic valvular calcifications are seen. Vessels: Severe atherosclerotic changes in the aorta and coronary arteries. Mediastinum and elsie: Subcentimeter lymph nodes are seen. Chest wall and lower neck: Unremarkable. Abdomen: For findings below the diaphragm, please refer to CT of the abdomen dated the same. Bones: Degenerative changes in the thoracic spine. IMPRESSION: Small bilateral pleural effusions and cardiomegaly. No acute abnormalities and in particular no evidence of acute fracture. ACT 112: Negative or not required by law. Electronically signed by: Enrrique Devi M.D. 06/19/2023 1:14 PM Discharge Plan Visit Data Chief Complaint: Abdominal Pain Stated Complaint: stomach pain ED Provider: Kimberly Montesinos Discharge Problem: Acute hyponatremia, Alcohol abuse, Elevated troponin, Fall, Atrial fibrillation with rapid ventricular response, Elevated lactic acid level Forms Stand Alone Forms: [facility] [employer] Prescriptions Prescriptions: No Action (DME) Shower Chair Misc See Rx Instructions .Route Qty: 1 0RF Rx Instructions: As directed. albuterol sulfate 90 mcg/actuation HFA aerosol inhaler 2 puff INHALATION Q4H PRN (Reason: Wheezing/Dyspnea) Qty: 8.5 3RF fluticasone propion-salmeterol [Advair Diskus] 250-50 mcg/dose blister with device 1 inh INHALATION BID Qty: 60 3RF atorvastatin 40 mg tablet 40 mg PO DAILY Qty: 30 5RF clopidogrel 75 mg tablet 75 mg PO QAM 30 Days Qty: 30 5RF Eliquis 5 mg tablet 5 mg PO BID 30 Days Qty: 60 5RF enalapril maleate 10 mg tablet 10 mg PO DAILY 30 Days Qty: 30 5RF furosemide 20 mg tablet 40 mg PO DAILY Qty: 60 5RF Rx Instructions: According to Dr starks on 10/04/21 his lasix was increased to bid metoprolol succinate 100 mg tablet extended release 24 hr 100 mg PO DAILY Qty: 30 5RF potassium chloride 10 mEq tablet extended release 10 meq PO DAILY Qty: 30 5RF nitroglycerin [Nitrostat] 0.4 mg tablet, sublingual 0.4 mg sublingual Q5M PRN (Reason: chest pain) Qty: 25 0RF metoprolol succinate 25 mg tablet extended release 24 hr 25 mg PO BID gabapentin 100 mg capsule 100 mg PO TID Farxiga 10 mg tablet 10 mg PO DAILY Hold Instructions: Resume on 05/22/23. HOLD until your doctor tells you to restart famotidine 20 mg Tablet 20 mg PO BID Qty: 60 0RF levothyroxine [Synthroid] 50 mcg Tablet 50 mcg PO DAILYBB Qty: 30 0RF clotrimazole 1 % Cream 1 applic EXT BID Qty: 30 0RF thiamine HCl (vitamin B1) 100 mg tablet 100 mg PO QAM Qty: 30 5RF folic acid 1 mg tablet 1 mg PO DAILY Qty: 30 0RF insulin glargine [Lantus Solostar U-100 Insulin] 100 unit/mL (3 mL) insulin pen 10 unit SUBCUT DAILY Qty: 15 0RF Referrals Referrals: Janell Aldana DO [Primary Care Provider] -
[2023-06-19] MEDS ORDERED: SODIUM CHLORIDE 3 % 100 ML IV ONE ×2 (16:18→18:55)
[2023-06-19] MEDS ORDERED: STAT IV/IM STA ×2 (16:18→18:55)
[2023-06-19] MEDS ORDERED: FUROSEMIDE INJ 20 MG/2 ML VIAL IV STA (16:18)
[2023-06-19 16:20] LABS: BUN Creatinine Ratio 14.2 (10-20); Calcium 8.4 mg/dl (8.6-10.3); Creatinine Clr Calc Pharmacy 57.2 ml/min; Est GFR (African American) 74.8 ml/min; Est GFR (Non-African American) 64.6 ml/min; Potassium 4.2 mmol/L (3.5-5.1); Troponin I High Sensitivity 63.4 pg/ml (0-20)
[2023-06-19 16:30] LABS: Creatinine Urine Random 62.9 mg/dl; Protein Creatinine Ratio Urine 3.2 (0-0.2)
[2023-06-19] MEDS ORDERED: GLUCOSE 40% GEL 15 GM TUBE PO PRN (16:35)
[2023-06-19] MEDS ORDERED: GLUCOSE 10 TAB/TUBE PO PRN (16:35)
[2023-06-19] MEDS ORDERED: GLUCAGON FOR INJ 1 MG VIAL SQ PRN (16:35)
[2023-06-19] MEDS ORDERED: DEXTROSE 50% 50 ML SYRINGE IV PRN (16:35)
[2023-06-19] MEDS ORDERED: CARBOHYDRATES FOR HYPOGLYCEMIA PO PRN (16:35)
[2023-06-19] MEDS ORDERED: ALBUTEROL HFA 8 GM INHALER INH PRN (16:35)
[2023-06-19 16:45] LABS: Folate (Folic Acid),Ser orPlas > 22.30 ng/ml (>5.38)
[2023-06-19 16:46] LABS: Vitamin B12 558 pg/ml (180-914)
--- NOTE | 2023-06-19 16:48 | XRay Report ---
XR foot LT 2V CLINICAL HISTORY: PAD, eschar on left 1st toe COMPARISON: None FINDINGS: Alignment of the left foot is anatomic. Tarsometatarsal joints are intact. There is no fra cture. No bony erosions are identified. Dorsal soft tissue swelling is present. There is moderate vas cular calcification. IMPRESSION: 1. No fractures or evidence for osteomyelitis within the left foot. 2. Moderate vascular calcification and dorsal foot soft tissue swelling. ACT 112: Negative or not required by law. Electronically signed by: Ameya Henriquez M.D. 06/19/2023 4:47 PM
--- NOTE | 2023-06-19 16:48 | XRay Report ---
XR ankle LT 2V CLINICAL HISTORY: PAD, eschar on left 1st toe COMPARISON: None FINDINGS: Alignment of the left ankle is anatomic. There is no acute fracture. No bony erosion is id entified. Talar dome is intact. Left lower leg, ankle and foot soft tissue swelling is present. There is moderate vascular calcification. IMPRESSION: 1. No fractures or evidence for osteomyelitis within the left ankle. 2. Left lower leg, ankle and dorsal foot soft tissue swelling. ACT 112: Negative or not required by law. Electronically signed by: Ameya Henriquez M.D. 06/19/2023 4:45 PM
[2023-06-19 18:48] LABS: BUN Creatinine Ratio 14.2 (10-20); Calcium 8.4 mg/dl (8.6-10.3); Creatinine Clr Calc Pharmacy 57.2 ml/min; Est GFR (African American) 74.8 ml/min; Est GFR (Non-African American) 64.6 ml/min; Potassium 4.3 mmol/L (3.5-5.1)
[2023-06-19] MEDS: INSULIN ASPART PER UNIT CHARGE SC SCH ×2 (20:13→20:14)
[2023-06-19] MEDS: CLOTRIMAZOLE 1% CR 15 GM TUBE EXT SCH (21:46)
[2023-06-19] MEDS: ACETAMINOPHEN 325 MG TAB PO PRN (21:46)
[2023-06-19] MEDS: LANTUS PER UNIT CHARGE SQ SCH (21:46)
[2023-06-19] MEDS: APIXABAN 5 MG TABLET PO SCH (21:47)
[2023-06-19] MEDS: METOPROLOL SUCC 25MG EXT REL TAB PO SCH (21:47)
[2023-06-19] MEDS: GABAPENTIN 100 MG CAP PO SCH (21:47)
[2023-06-19] MEDS: FAMOTIDINE 20 MG TAB PO SCH (21:48)
--- NOTE | 2023-06-19 22:03 | Ultrasound Report ---
Exam(s): US ARTERIAL LEFT LOWER EXTREMITY EXAM: US Duplex Left Lower Extremity Arteries CLINICAL HISTORY: Reason for exam: PAD. TECHNIQUE: Real-time duplex ultrasound scan of the left lower extremity arteries integrating B-mode two-dimensional vascular structure, Doppler spectral analysis and color flow Doppler imaging. COMPARISON: No relevant prior studies available. FINDINGS: Left common femoral artery: Dense calcification in the left common femoral artery with monophasic waveforms seen within the popliteal artery. Left superficial femoral artery: No acute findings. No occlusion or significant stenosis on color flow and spectral Doppler imaging. Normal waveform. Left popliteal artery: See above. Left calf/foot arteries: . Minimal flow seen within the posterior tibial artery with minimal flow seen within the dorsalis pedis artery. No flow seen within the peroneal artery. Anterior tibial artery demonstrates monophasic antegrade flow proximally with diminished flow seen distally. Soft tissues: Unremarkable. IMPRESSION: Severe diffuse atherosclerotic change with occlusion of the peroneal and posterior tibial arteries. There is minimal flow seen within the anterior tibial artery with no flow seen in dorsalis pedis artery. Catheter directed angiography is recommended for further evaluation and attempt at limb salvage. Electronically signed by: Jim Vargas MD 06/19/23 22:02 PM
[2023-06-19] MEDS: PHENobarbital sodium 65 MG/ML VIAL IV PRN (23:07)
[2023-06-20 00:07] LABS: BUN Creatinine Ratio 14.9 (10-20); Creatinine Clr Calc Pharmacy 53.4 ml/min; Est GFR (African American) 68.9 ml/min; Est GFR (Non-African American) 59.5 ml/min; Potassium 4.2 mmol/L (3.5-5.1)
[2023-06-20] MEDS ORDERED: PHENobarbitaL sodium 65 MG in SYRINGE 0 ML IV STA (00:23)
[2023-06-20] MEDS ORDERED: PHENobarbital sodium 65 MG/ML VIAL IV STA ×2 (00:39→03:25)
[2023-06-20 02:52] LABS: Basophils # (auto) 0.03 K/uL (0.00-0.20); Basophils % (auto) 0.4 %; Eosinophils # (auto) 0.02 K/uL (0.00-0.50); Eosinophils % (auto) 0.3 %; Hematocrit (blood only) 35.4 % (42.0-52.0); Hemoglobin 12.4 g/dl (14.0-18.0); Immature Granulocytes # (auto) 0.03 K/uL (0.01-0.20); Immature Granulocytes % (auto) 0.4 %; Lymphocytes # (auto) 1.07 K/uL (1.20-3.40); Lymphocytes % (auto) 14.3 %; Mean Corpuscular Hemoglobin 29.5 pg (25.0-34.0); Mean Corpuscular Volume 84.1 fL (80.0-100.0); Mean Platelet Volume 11.9 fL (9.4-12.4); Monocytes # (auto) 1.01 K/uL (0.11-0.59); Monocytes % (auto) 13.5 %; Neutrophils % (auto) 71.1 %; Platelet Count 164 K/uL (130-400); RDW Coefficient of Variation 16.3 % (11.5-14.5); RDW Standard Deviation 47.9 fL (36.4-46.3); Red Blood Count 4.21 M/uL (4.70-6.10); White Blood Count 7.46 K/ul (4.8-10.8)
[2023-06-20 02:57] LABS: Albumin Globulin Ratio 1.1 (0.9-2); Albumin Level 3.4 gm/dl (3.4-5.0); BUN Creatinine Ratio 15.7 (10-20); Calcium 8.1 mg/dl (8.6-10.3); Creatinine Clr Calc Pharmacy 56.2 ml/min; Est GFR (African American) 73.3 ml/min; Est GFR (Non-African American) 63.2 ml/min; Total Protein 6.4 gm/dl (6.0-8.3)
[2023-06-20] MEDS ORDERED: PHENobarbitaL sodium 65 MG in SYRINGE 0 ML IV ONE (03:09)
[2023-06-20] MEDS ORDERED: KETOROLAC TROMETHAMINE 15 MG/ML VIAL IV ONE (03:12)
[2023-06-20] MEDS: LEVOTHYROXINE SODIUM 50 MCG TABLET PO SCH (06:38)
[2023-06-20 06:56] LABS: BUN Creatinine Ratio 14.1 (10-20); Calcium 8.1 mg/dl (8.6-10.3); Creatinine Clr Calc Pharmacy 47.9 ml/min; Est GFR (African American) 60.4 ml/min; Est GFR (Non-African American) 52.1 ml/min; Potassium 3.9 mmol/L (3.5-5.1)
[2023-06-20] MEDS ORDERED: THIAMINE HCL 500 MG in SODIUM CHLORIDE 0.9% 50 ML IV STA (08:41)
[2023-06-20] MEDS: INSULIN ASPART PER UNIT CHARGE SC SCH ×4 (08:51→20:23)
[2023-06-20] MEDS ORDERED: THIAMINE HCL 100 MG TAB PO SCH (09:00)
[2023-06-20] MEDS: LANTUS PER UNIT CHARGE SQ SCH ×2 (10:06→20:23)
[2023-06-20] MEDS: APIXABAN 5 MG TABLET PO SCH ×2 (10:08→20:12)
[2023-06-20] MEDS: METOPROLOL SUCC 25MG EXT REL TAB PO SCH ×2 (10:08→20:12)
[2023-06-20] MEDS: GABAPENTIN 100 MG CAP PO SCH ×3 (10:09→20:12)
[2023-06-20] MEDS: FAMOTIDINE 20 MG TAB PO SCH ×2 (10:09→20:12)
[2023-06-20] MEDS: FOLIC ACID 1 MG TAB PO SCH (10:10)
[2023-06-20] MEDS: ATORVASTATIN 40 MG TAB PO SCH (10:10)
[2023-06-20] MEDS: POTASSIUM CHLORIDE 10 MEQ TABCR PO SCH (10:10)
[2023-06-20] MEDS: CLOPIDOGREL BISULFATE 75 MG TAB PO SCH (10:11)
[2023-06-20] MEDS: ENALAPRIL MALEATE 10 MG TAB PO SCH (10:11)
[2023-06-20] MEDS: FLUTICASONE/VILANTEROL 200/25MCG 14 PUFFS/INHALER INH SCH (10:12)
[2023-06-20] MEDS: CLOTRIMAZOLE 1% CR 15 GM TUBE EXT SCH ×2 (10:13→20:13)
[2023-06-20] MEDS: PHENobarbitaL 30 MG TAB PO SCH ×2 (10:17→20:11)
--- NOTE | 2023-06-20 10:28 | Hospitalist Progress Note ---
Date of Service June 20, 2023 Assessment & Plan (1) Fall: Plan: Fall , down for 6 hours In the setting of alcohol use CThead/C-spine/abdomen/pelvis without acute findings Transient right lower quadrant pain which resolved - Discussed with daughter. Falls often, very week. Had both depression which worsens his drinking particularly around the holidays which increases ETOH use. When he is weak and falling his needs exceed the level of care he has at home - PT/OT/CM consulted (2) Alcohol abuse: Plan: - Patient was reportedly found down surrounded by 14 beer cans - Ethyl alcohol level mildly elevated at 11.0 on arrival - Lipase WNL at 25 Patient on gabapentin protocol. AWSS protocols with phenobarbital as needed - Seizure precautions - Continue home dose of gabapentin 100 mg p.o. TID - Vitamin B1, B12, and folate levels ordered, pending -High-dose thiamine protocol started (3) Acute hyponatremia: Plan: Sodium 118 on arrival. Gradually uptrending 120, 123 then lowered again to 122 With signs of concurrent volume overload colluding mild pulmonary edema and lower extremity stasis Is also with 3+ proteinuria, urine osmolality is low, urine sodium is negative, serum sodium is 119. Suspect combination of fluid overload and potomanic solute depletion Fluid restricted, continue diuresis with Lasix.? Total body sodium as this may be low with primarily alcohol intake healthy has a clear free water excess at time of admission. Adjust salt restriction/supplementation as clinically indica roopa Goal change of 8 mEq per 24 hours, if rising more than 10 per 24 may reverse with D5 (4) Elevated serum lactate dehydrogenase: Plan: Elevated lactate at 5.6 on arrival, repeat 3.9, improving. Suspected clearance/TB. No signs of sepsis on reassessment. No leukocytosis; afebrile PCT WNL Blood cultures remain negative (5) CHF (congestive heart failure): Plan: BNP elevated at 3917 on arrival Most recent echo on 05/12/2023 revealed LVEF of 25-30%, elevated RVSP at 4050mmHg; mild to moderate gay valvular regurgitation Chest CT revealed small bilateral pleural effusions and cardiomegaly; no evidence of acute fractures or abnormality Patient is not compliant with Lasix at home Lasix IV continued for clinical volume overload (6) Abnormal LFTs: Plan: Total bilirubin elevated at 1.8, AST elevated at 49, alk phos elevated at 109 In the setting of alcohol abuse LFTs are improving (7) T2DM (type 2 diabetes mellitus): Plan: Last A1c 7.4% on 05/06/2023; no need to repeat Glucose 143 on arrival Hold Farxiga Continue enalapril, no AZRA noted at this time Lantus 7u BID while inpatient SSI; with target BSG range 110-140mg/dL, CF 55, carb ratio 18 BSG ACHS T2DM diet Adjust regimen as needed (8) Elevated troponin: Plan: Troponin 67.2-->63.4 on arrival No chest pain, no signs of ACS Continuous telemetry monitoring Nitrostat as needed for chest pain (9) PAF (paroxysmal atrial fibrillation): Plan: EKG on arrival showed A-fib with RVR at 105 bpm; QTc 494 Continue metoprolol Continue apixaban PCU telemetry (10) HTN (hypertension): Plan: While metoprolol 100 mg daily is in the patient's med rec, it looks like it was changed to metoprolol 25 mg p.o. BID on 05/22 Continue metoprolol (11) HLD (hyperlipidemia): Plan: Continue atorvastatin (12) COPD (chronic obstructive pulmonary disease): Plan: Continue home inhalers as needed (13) Hypothyroidism: Plan: Continue levothyroxine (14) GERD (gastroesophageal reflux disease): Plan: Continue famotidine (15) CAD (coronary atherosclerotic disease): Plan: Hx of cardiac cath on 10/11/2022 Continue metoprolol, enalapril, atorvastatin, Plavix no chest pain on admit, minimally elevated trop downtrending (16) Anemia: Plan: Hgb 12.2 and Hct 35.1 at time of admission No signs of active bleeding on arrival; ?Chronic/EtOH suppression Monitor a.m. CBCs (17) Urine retention: Plan: Perez catheter placed on admission (18) Acute encephalopathy: Plan: ? wernickes/etoh High-dose thiamine protocol started Continue withdrawal protocol No neurologic deficits on repeat exam (19) PAD (peripheral artery disease): Plan: Eschar noted on left 1st toe; no signs of osteo on x-ray. Arterial ultrasound with severe diffuse atherosclerotic change with occlusion of the peroneal and posterior tibial arteries. There is minimal flow seen within the anterior tibial artery with no flow seen in dorsalis pedis artery. Dr Henry to see, limited opens for revascularization. Appreciate recommendations. Plan Disposition: Admit to PCU telemetry Full code AHA, T2DM, (recommend 1500 mL fluid restriction). ?total sodium deficit with etoh vs relative with free water excess. No siadh on urine labs. VTE PPx: On Eliquis Admission and Anticipated Discharge Date Admission Date: June 19, 2023 Rosa Maria Daley is seen at the bedside. He is not oriented to place or year, answers some questions appropriately but is easily distractible although pleasant. Bilateral resting tremor in the arms without asterixis. Reports sensation is chronically decreased in his legs bilaterally. Voices no new concerns today, reports he has no pain and no fever or chills. Denies hallucinations. Update given to daughter. Extreme concerns for their ability to care for him at home with falling and general treatment noncompliance. In addition they are very concerned about his overall nutrition, sodium levels, continue drinking, and difficulty with renal and liver disease. CM consulted for assistance with placement and goals. Daughter does report that at 1 point was so difficult that office of aging was potentially going to be contacted but this was ultimately not required Physical Exam Physical Exam: General: Awakens easily, oriented to name only. NAD. Cooperative. Not oriented to place/year HEENT: Atraumatic, normocephalic. Vision/hearing grossly intact. PERLAA. Pulm: CTAB A&P. -wheezes, -rales, -rhonchi. Symmetrical chest rise. No increased work of breathing. No respiratory distress. Cardiac: RRR, -mrg. Radial pulses intact and symmetrical. Abdominal: Nontender, nondistended, soft. BS present. Ext: +UE bilat resting tremor -asterixis. Left lower extremity with purple discoloration of the toes, delayed cap refill. 2+ edema of the foot, ankle and left lower extremity. Nontender. RLE with 1+ edema. Results & Data Results & Data Vital Signs (Past 12 Hours) Vital Signs Temp Pulse Pulse Resp BP BP BP 06/20/23 07:30 36.5 C 98 H 16 120/78 06/20/23 06:45 36.7 C 100 H 17 114/92 06/20/23 05:00 103 H 20 120/86 06/20/23 03:25 109 H 18 119/96 06/20/23 03:17 36.6 C 100 H 18 119/96 06/20/23 02:00 103 H 20 126/84 06/20/23 00:50 109 H 18 136/91 06/19/23 23:14 98 H 19 129/95 06/19/23 23:07 109 H 22 143/88 H 06/19/23 23:00 108 H 06/19/23 22:22 36.8 C 106 H 18 143/88 H Pulse Ox O2 Del Method 06/20/23 07:30 92 Room Air 06/20/23 06:45 99 Room Air 06/20/23 05:00 99 Room Air 06/20/23 03:25 06/20/23 03:17 96 Room Air 06/20/23 02:00 97 Room Air 06/20/23 00:50 06/19/23 23:14 06/19/23 23:07 06/19/23 23:00 06/19/23 22:22 97 Room Air PG Care Time/CCT Total # of Minutes Spent Total Time Spent with Patient: Total time spent is greater than 50% in coordination of care (as documented) at patient's floor/unit and/or counseling patient: Coding Level of Care Code 59747 SUB INP/OBS CARE 3/50MIN Diagnoses Fall W19.XXXA Alcohol abuse F10.10 Acute hyponatremia E87.1 Elevated serum lactate dehydrogenase R74.02 CHF (congestive heart failure) I50.9 Abnormal LFTs R79.89 T2DM (type 2 diabetes mellitus) E11.9 Elevated troponin R77.8 PAF (paroxysmal atrial fibrillation) I48.0 HTN (hypertension) I10 HLD (hyperlipidemia) E78.5 COPD (chronic obstructive pulmonary disease) J44.9 Hypothyroidism E03.9 GERD (gastroesophageal reflux disease) K21.9 CAD (coronary atherosclerotic disease) I25.10 Anemia D64.9 Urine retention R33.9 Acute encephalopathy G93.40 PAD (peripheral artery disease) I73.9
--- NOTE | 2023-06-20 12:03 | Electrocardiogram Report ---
Test Reason : Blood Pressure : / mmHG Vent. Rate : 105 BPM Atrial Rate : 000 BPM P-R Int : 000 ms QRS Dur : 118 ms QT Int : 374 ms P-R-T Axes : 000 258 108 degrees QTc Int : 494 ms Atrial fibrillation with rapid ventricular response with premature ventricular or aberrantly conducte d complexes Right superior axis deviation Low voltage QRS Cannot rule out Anterior infarct (cited on or before 04-MAY-2023) Abnormal ECG Confirmed by Ace Duenas ([id number] on 06/20/2023 12:03:12 PM Referred By: REFERRED SELF Confirmed By:Teo Duenas
[2023-06-20] MEDS ORDERED: FUROSEMIDE INJ 20 MG/2 ML VIAL IV ONE (12:17)
[2023-06-20 14:58] LABS: BUN Creatinine Ratio 14.3 (10-20); Blood Urea Nitrogen 21 mg/dl (6-23); Carbon Dioxide 22 mmol/L (21-32); Chloride 90 mmol/L (98-107); Creatinine Clr Calc Pharmacy 48.2 ml/min; Est GFR (African American) 54.5 ml/min; Glucose 121 mg/dl (70-99(Fasting))
[2023-06-20 16:20] LABS: Sodium 122 mmol/L (136-145)
[2023-06-21] MEDS: ACETAMINOPHEN 325 MG TAB PO PRN (04:19)
[2023-06-21] MEDS: LEVOTHYROXINE SODIUM 50 MCG TABLET PO SCH (04:20)
[2023-06-21 06:48] LABS: Basophils # (auto) 0.08 K/uL (0.00-0.20); Basophils % (auto) 0.8 %; Eosinophils # (auto) 0.23 K/uL (0.00-0.50); Eosinophils % (auto) 2.3 %; Hematocrit (blood only) 34.8 % (42.0-52.0); Hemoglobin 12.4 g/dl (14.0-18.0); Immature Granulocytes # (auto) 0.06 K/uL (0.01-0.20); Immature Granulocytes % (auto) 0.6 %; Lymphocytes # (auto) 1.52 K/uL (1.20-3.40); Mean Corpuscular Hemoglobin 30.1 pg (25.0-34.0); Mean Corpuscular Hgb Conc 35.6 g/dL (32.0-36.0); Mean Corpuscular Volume 84.5 fL (80.0-100.0); Mean Platelet Volume 11.7 fL (9.4-12.4); Monocytes # (auto) 1.48 K/uL (0.11-0.59); Monocytes % (auto) 14.6 %; Neutrophils # (auto) 6.74 K/uL (1.40-6.50); Neutrophils % (auto) 66.7 %; Platelet Count 172 K/uL (130-400); RDW Coefficient of Variation 16.6 % (11.5-14.5); RDW Standard Deviation 49.9 fL (36.4-46.3); Red Blood Count 4.12 M/uL (4.70-6.10); White Blood Count 10.11 K/ul (4.8-10.8)
[2023-06-21 07:07] LABS: Alanine Aminotransferase 35 U/L (7-52); Albumin Globulin Ratio 1.1 (0.9-2); Albumin Level 3.3 gm/dl (3.4-5.0); Alkaline Phosphatase 124 U/L (34-104); Anion Gap 6 (3-11); Blood Urea Nitrogen 27 mg/dl (6-23); Carbon Dioxide 26 mmol/L (21-32); Chloride 92 mmol/L (98-107); Creatinine Clr Calc Pharmacy 48.2 ml/min; Est GFR (African American) 53.1 ml/min; Est GFR (Non-African American) 45.9 ml/min; Globulin 2.9 gm/dl (2.5-4.0); Glucose 30 mg/dl (70-99(Fasting)); Sodium 124 mmol/L (136-145); Total Protein 6.2 gm/dl (6.0-8.3)
[2023-06-21] MEDS ORDERED: PHARMACY GLYCEMIC MGMT CONSULT PRN (07:34)
--- NOTE | 2023-06-21 07:44 | Hospitalist Progress Note ---
Date of Service June 21, 2023 Assessment & Plan (1) Fall: Plan: Fall , down for 6 hours In the setting of alcohol use CThead/C-spine/abdomen/pelvis without acute findings Transient right lower quadrant pain which resolved - Discussed with daughter. Falls often, very week. Had both depression which worsens his drinking particularly around the holidays which increases ETOH use. When he is weak and falling his needs exceed the level of care he has at home - PT/OT/CM consulted (2) Alcohol abuse: Plan: - Patient was reportedly found down surrounded by 14 beer cans - Ethyl alcohol level mildly elevated at 11.0 on arrival - Lipase WNL at 25 Patient on gabapentin protocol. AWSS protocols with phenobarbital as needed. Clinically improving without additional doses required 06/21 - Seizure precautions - Continue home dose of gabapentin 100 mg p.o. TID - Vitamin B1, B12, and folate levels ordered, pending - High-dose thiamine protocol started (3) Acute hyponatremia: Plan: Sodium 118 on arrival. Gradually uptrending. Lasix continued With signs of concurrent volume overload including mild pulmonary edema and lower extremity stasis Is also with 3+ proteinuria, urine osmolality is low, urine sodium is negative, serum sodium is 119. Suspect combination of fluid overload and potomanic solute depletion Goal change of 8 mEq per 24 hours, if rising more than 10 per 24 may reverse with D5 Fluid restricted, continue diuresis with Lasix. ?Total body sodium low with high alcohol intake, has a clear free water excess at time of admission. Diuresis continued for net free water loss, Adjust salt restriction/supplementation as indicated on reassessment (4) Elevated serum lactate dehydrogenase: Plan: Elevated lactate at 5.6 on arrival, repeat 3.9, improving. Suspected clearance/TB. No signs of sepsis on reassessment. No leukocytosis; afebrile PCT WNL Blood cultures remain negative (5) CHF (congestive heart failure): Plan: BNP elevated at 3917 on arrival Most recent echo on 05/12/2023 revealed LVEF of 25-30%, elevated RVSP at 4050mmHg; mild to moderate gay valvular regurgitation Chest CT revealed small bilateral pleural effusions and cardiomegaly; no evidence of acute fractures or abnormality Patient is not compliant with Lasix at home Lasix IV continued for clinical volume overload (6) Abnormal LFTs: Plan: Total bilirubin elevated at 1.8, AST elevated at 49, alk phos elevated at 109 In the setting of alcohol abuse LFTs are improving (7) T2DM (type 2 diabetes mellitus): Plan: Last A1c 7.4% on 05/06/2023; no need to repeat Glucose 143 on arrival Hold Farxiga Enalapril held for elevated Cr Lantus 7u BID BSG range 110-140mg/dL, CF 55, carb ratio 18. Dose reduced 06/21 for AM hypglycemia, no CR, lantus decreased to 5u. +glycemic consult BSG ACHS T2DM diet Adjust regimen as needed (8) Elevated troponin: Plan: Troponin 67.2-->63.4 on arrival No chest pain, no signs of ACS Continuous telemetry monitoring Nitrostat as needed for chest pain (9) PAF (paroxysmal atrial fibrillation): Plan: EKG on arrival showed A-fib with RVR at 105 bpm; QTc 494 Continue metoprolol Continue apixaban PCU telemetry (10) HTN (hypertension): Plan: While metoprolol 100 mg daily is in the patient's med rec, it looks like it was changed to metoprolol 25 mg p.o. BID on 05/22 Continue metoprolol, adjust as needed. Normotensive 06/21 (11) HLD (hyperlipidemia): Plan: Continue atorvastatin (12) COPD (chronic obstructive pulmonary disease): Plan: Continue home inhalers as needed (13) Hypothyroidism: Plan: Continue levothyroxine (14) GERD (gastroesophageal reflux disease): Plan: Continue famotidine (15) CAD (coronary atherosclerotic disease): Plan: Hx of cardiac cath on 10/11/2022 Continue metoprolol, atorvastatin, Plavix. Enalapril temporarily held. no chest pain on admit, minimally elevated trop downtrending (16) Anemia: Plan: Hgb 12.2 and Hct 35.1 at time of admission No signs of active bleeding on arrival; ?Chronic/EtOH suppression Monitor a.m. CBCs (17) Urine retention: Plan: Perez catheter placed on admission (18) Acute encephalopathy: Plan: ? wernickes/etoh High-dose thiamine protocol started Continue withdrawal protocol No neurologic deficits on repeat exam (19) PAD (peripheral artery disease): Plan: Eschar noted on left 1st toe; no signs of osteo on x-ray. Arterial ultrasound with severe diffuse atherosclerotic change with occlusion of the peroneal and posterior tibial arteries. There is minimal flow seen within the anterior tibial artery with no flow seen in dorsalis pedis artery. Dr Henry to see, limited opens for revascularization. Appreciate recommendations. Plan Disposition: PCU telemetry Full code T2DM, (recommend 1500 mL fluid restriction). ?total sodium deficit with etoh vs relative with free water excess. No siadh on urine labs. VTE PPx: On Eliquis Admission and Anticipated Discharge Date Admission Date: June 19, 2023 Rosa Maria Daley is seen at the bedside. He reports that he feels well without acute questions or concerns. Denies chest pain, chest pressure, shortness of breath, difficulty breathing. Denies limb pain. Endorse that he continues to feel very fatigued. He was oriented to place and name. Physical Exam Physical Exam: General: Awakens easily, oriented to name only. NAD. Cooperative. Not oriented to year HEENT: Atraumatic, normocephalic. Vision/hearing grossly intact. PERLAA. Pulm: Bibasilar crackles which improve on deep inspiration. symmetrical chest r ise. No increased work of breathing. No respiratory distress. Cardiac: RRR, -mrg. Radial pulses intact and symmetrical. Trace JVD at the angle of the clavicle which increases by about 1 cm with HJR Abdominal: Nontender, nondistended, soft. BS present. Ext: Upper extremity resting tremor improved. Left foot remains with 2+ edema, sluggish capillary refill, no clinical change. Right foot with pedal edema Results & Data Results & Data Vital Signs (Past 12 Hours) Vital Signs Temp Pulse Pulse Resp BP Pulse Ox O2 Del Method 06/21/23 06:15 92 H 16 124/80 96 Room Air 06/21/23 04:00 36.4 C L 96 H 20 101/83 97 Room Air 06/20/23 23:00 36.5 C 99 H 16 109/64 95 Room Air 06/20/23 22:58 18 93 Room Air 06/20/23 22:05 96 H 06/20/23 20:00 Room Air O2 Flow Rate 06/21/23 06:15 06/21/23 04:00 06/20/23 23:00 06/20/23 22:58 103 06/20/23 22:05 06/20/23 20:00 PG Care Time/CCT Total # of Minutes Spent Total Time Spent with Patient: Total time spent is greater than 50% in coordination of care (as documented) at patient's floor/unit and/or counseling patient: Coding Level of Care Code 22332 SUB INP/OBS CARE 3/50MIN Diagnoses Fall W19.XXXA Alcohol abuse F10.10 Acute hyponatremia E87.1 Elevated serum lactate dehydrogenase R74.02 CHF (congestive heart failure) I50.9 Abnormal LFTs R79.89 T2DM (type 2 diabetes mellitus) E11.9 Elevated troponin R77.8 PAF (paroxysmal atrial fibrillation) I48.0 HTN (hypertension) I10 HLD (hyperlipidemia) E78.5 COPD (chronic obstructive pulmonary disease) J44.9 Hypothyroidism E03.9 GERD (gastroesophageal reflux disease) K21.9 CAD (coronary atherosclerotic disease) I25.10 Anemia D64.9 Urine retention R33.9 Acute encephalopathy G93.40 PAD (peripheral artery disease) I73.9
[2023-06-21] MEDS: INSULIN ASPART PER UNIT CHARGE SC SCH ×4 (08:02→20:36)
[2023-06-21 08:33] LABS: Potassium 3.6 mmol/L (3.5-5.1)
[2023-06-21] MEDS: CLOTRIMAZOLE 1% CR 15 GM TUBE EXT SCH ×2 (08:49→20:22)
[2023-06-21] MEDS: ATORVASTATIN 40 MG TAB PO SCH (08:49)
[2023-06-21] MEDS: CLOPIDOGREL BISULFATE 75 MG TAB PO SCH (08:49)
[2023-06-21] MEDS: FAMOTIDINE 20 MG TAB PO SCH ×2 (08:49→20:22)
[2023-06-21] MEDS: APIXABAN 5 MG TABLET PO SCH ×2 (08:49→20:22)
[2023-06-21] MEDS: FLUTICASONE/VILANTEROL 200/25MCG 14 PUFFS/INHALER INH SCH (08:49)
[2023-06-21] MEDS: FOLIC ACID 1 MG TAB PO SCH (08:49)
[2023-06-21] MEDS: GABAPENTIN 100 MG CAP PO SCH ×3 (08:50→20:22)
[2023-06-21] MEDS: METOPROLOL SUCC 25MG EXT REL TAB PO SCH ×2 (08:50→20:22)
[2023-06-21] MEDS: PHENobarbitaL 30 MG TAB PO SCH ×2 (08:53→23:20)
[2023-06-21] MEDS: POTASSIUM CHLORIDE 10 MEQ TABCR PO SCH (08:53)
[2023-06-21] MEDS ORDERED: THIAMINE HCL 300 MG in SODIUM CHLORIDE 0.9% 50 ML IV ONE (09:00)
[2023-06-21] MEDS ORDERED: LANTUS PER UNIT CHARGE SQ SCH ×2 (09:00→21:00)
--- NOTE | 2023-06-21 12:51 | Pharmacy Report ---
Pharmacy Glycemic Short Note 2 - Date of Service June 21, 2023 - Glycemic Short BSG Results (Last 24 hours): 06/20/23 06/20/23 06/20/23 14:26 16:17 20:14 Glucose 121 H POC Glucose 121 H 82 06/21/23 06/21/23 06/21/23 06:21 07:08 07:22 Glucose 30 L* POC Glucose 56 L* 111 H 06/21/23 11:03 Glucose POC Glucose 112 H OUTPATIENT ANTIDIABETIC REGIMEN: * Insulin glargine 10 units daily * Farxiga 10 mg daily * A1c 7.4% 05/06/23 ASSESSMENT: * Patient admitted 06/19 with fall in the setting of alcohol use, hyponatremia, patient also has a history of CHF and type II diabetes * Consulted this AM after fasting on lab 30 mg/dL- patient had been receiving 7 units BID of lantus, held this mornings dose, will scale PM 0/5 units * Carb ratio removed by hospitalist, lunch BSG 112 mg/dl- will monitor need to resume PLAN FOR INPATIENT GLYCEMIC CONTROL: * Hold outpatient oral diabetes medications * Basal insulin * Lantus 0/5 units HS * Bolus insulin * NovoLog per scale ACHS or Q6hrs while NPO * Goal Range: Low 110 mg/dL - High 140 mg/dL * Correction Factor: 55 mg/dL/unit * Nutritional / Prandial insulin per carb ratio of - unit per - grams CHO consumed
[2023-06-21] MEDS ORDERED: FUROSEMIDE INJ 20 MG/2 ML VIAL IV ONE (17:13)
[2023-06-21] MEDS: POTASSIUM CHLORIDE CRTAB 20 MEQ TABCR PO SCH (17:24)
--- NOTE | 2023-06-21 22:59 | Vascular Medicine Consultation ---
Date of Consultation June 21, 2023 Assessment & Plan (1) PAD (peripheral artery disease): --status post LLE endovascular intervention 09/2021 2. HFrEF EF 25% 3. CAD post prior PCI to LAD 4. Type 2 diabetes 5. Paroxysmal A-fib 6. COPD 7. Hyponatremia 8. Alcohol abuse 9. Anemia 10. AZRA Patient has critical lower limb ischemia in the setting of complex below the knee PAD. Previously underwent angioplasty to distal popliteal and TPT 09/2021 but at completion of procedure still had occlusion of distal tibial vessels with only collateral flow to foot. Repeat ultrasound this admission suggests some progression of popliteal disease. At present patient has only small areas of eschar on left great toe with no evidence of infection. No significant rest pain. Risk of limb loss remains relatively low and no emergent need for repeat angiogram at this time. Reasonable to consider repeat angiogram at some point, could be done as an outpatient or if still in hospital could be done on 06/27/2023. Options for revascularization relatively limited. For chance of successful tibial intervention would need retrograde pedal approach. For now continue clopidogrel, Eliquis. Will need to hold Eliquis for 24 hours prior to repeat angiogram. Will follow from afar. Please contact if any questions. History of Present Illness Attending Physician: Osmani Doe History of Present Illness Mr. Davis is a 73-year-old male with a complex cardiac and peripheral vascular disease history seen today in the setting of concern for recurrent left lower extremity critical limb ischemia. Prior history includes HFrEF EF 25%, CAD post prior PCI to LAD, paroxysmal A- fib, type 2 diabetes, hypertension, COPD, hypothyroidism. Also with a history of significant alcohol abuse and repeated admissions for encephalopathy, hyponatremia and falls. Again admitted 06/19 after a fall and prolonged period down. Labs remarkable for mildly elevated alcohol and hyponatremia to sodium of 118. No open wounds on left lower extremity but noted to have eschar on first, second toes. Arterial duplex notable for calcified disease in left RN INFUSION, distal popliteal occlusion with occluded [employer]/peroneal and minimal monophasic flow and ROSIBEL. Previously underwent angiogram and endovascular intervention to left lower extremity 09/2021 with angioplasty of left popliteal artery with ELIZABETH and angioplasty of left TPT into peroneal. Post procedure had improved collateral flow but distal tibial vessels remained occluded. Left TBI post procedure 0.25 (33 mmHg) but had improved left lower extremity rest pain and claudication. Allergies Allergy/AdvReac Type Severity Reaction Status Date / Time No Known Allergies Allergy Verified 06/09/23 12: Home Medications Medication Instructions Recorded Confirmed Type Shower Chair #1 ea 08/19/22 02/20/23 Rx albuterol sulfate 90 mcg/actuation 2 puff inhalation Q4H PRN 10/20/22 06/09/23 Rx aerosol inhaler Wheezing/Dyspnea #8.5 grams apixaban 5 mg tablet (Eliquis) 5 mg PO BID 30 days #60 tabs 10/24/22 06/09/23 Rx atorvastatin 40 mg tablet 40 mg PO DAILY #30 tabs 10/24/22 06/09/23 Rx clopidogrel 75 mg tablet 75 mg PO QAM 30 days #30 tabs 10/24/22 06/09/23 Rx enalapril maleate 10 mg tablet 10 mg PO DAILY 30 days #30 tabs 10/24/22 06/09/23 Rx fluticasone 250 mcg-salmeterol 50 1 inh inhalation BID #60 ea 10/24/22 06/09/23 Rx mcg/dose blistr powdr for inhalation (Advair Diskus) furosemide 20 mg tablet 40 mg (2 x 20 mg) PO DAILY #60 tabs 10/24/22 06/09/23 Rx metoprolol succinate 100 mg 100 mg PO DAILY #30 tabs 10/24/22 06/09/23 Rx tablet,extended release 24 hr potassium chloride 10 mEq 10 meq PO DAILY #30 tabs 10/25/22 06/09/23 Rx tablet,extended release gabapentin 100 mg capsule 100 mg PO TID 01/29/23 06/09/23 History nitroglycerin 0.4 mg sublingual 0.4 mg sublingual Q5M PRN chest 03/22/23 06/09/23 Rx tablet (Nitrostat) pain #25 tabs dapagliflozin propanediol 10 mg 10 mg PO DAILY 05/05/23 06/09/23 History tablet (Farxiga) clotrimazole 1 % topical cream 1 applic EXT BID apply to your 05/15/23 06/09/23 Rx feet and between toes bilateral feet #30 grams famotidine 20 mg tablet 20 mg PO BID #60 tabs 05/15/23 06/09/23 Rx folic acid 1 mg tablet 1 mg PO DAILY #30 tabs 05/15/23 06/09/23 Rx insulin glargine 100 unit/mL (3 10 unit (0.1 mL) subcut DAILY #15 05/15/23 06/09/23 Rx mL) subcutaneous pen (Lantus mL Solostar U-100 Insulin) levothyroxine 50 mcg tablet 50 mcg PO DAILYBB #30 tabs 05/15/23 06/09/23 Rx (Synthroid) thiamine HCl (vitamin B1) 100 mg 100 mg PO QAM #30 tabs 05/15/23 06/09/23 Rx tablet metoprolol succinate 25 mg 25 mg PO BID 05/30/23 06/09/23 History tablet,extended release 24 hr Patient History Medical History (Updated 06/20/23 @ 10:32 by Jerry Fried MD) Anemia CAD (coronary atherosclerotic disease) Fall Hyponatremia NSTEMI (non-ST elevated myocardial infarction) T2DM (type 2 diabetes mellitus) History of anesthesia reaction "my heart started to race" - during eye surgery [facility] PAD (peripheral artery disease) Osteoarthritis [place] (hard of hearing) History of myocardial infarction 1980s Poor historian History of stroke 09/2021 - no deficits PAD (peripheral artery disease) Alcohol abuse Acute hyponatremia Acute kidney injury DVT prophylaxis Acute systolic heart failure Noncompliance Increasing shortness of breath Elevated troponin Atrial fibrillation follows with [facility] Hypervolemia COPD (chronic obstructive pulmonary disease) CHF (congestive heart failure) NICM (nonischemic cardiomyopathy) Alcohol abuse HTN (hypertension) Anxiety GERD (gastroesophageal reflux disease) CKD (chronic kidney disease), stage III Left ventricular dysfunction Syndesmotic disruption of right ankle Fracture dislocation of right ankle History of left heart catheterization (LHC) "nonocclusive CAD, normal LV function" Alcohol abuse HLD (hyperlipidemia) DM2 (diabetes mellitus, type 2) COPD (chronic obstructive pulmonary disease) Surgical History History of non-cataract eye surgery History of cervical spinal surgery ROM WNL History of vascular surgery History of esophagogastroduodenoscopy (EGD) History of colonoscopy History of cardiac cath 09/2021 [place] - 1 stent 2008-nonocclussive CAD History of ankle surgery Family History Brother Pancreatic cancer Cancer Mother Diabetes Myocardial infarction Sister Diabetes Father Heart disease Myocardial infarction Other No family history of adverse response to anesthesia Denies family history of Ovarian cancer Prostate cancer Breast cancer Colorectal cancer Social History Smoking Status: Former smoker Tobacco Type: Cigarettes Second Hand Exposure: Yes; Do You Dip or Chew Tobacco: No; Hx Alcohol Use: Yes Alcohol type: beer Alcohol Intake Frequency: 4 or More x per/Week Hx Substance Use: Yes Substance Use Type Other:: denies any current use Preferred Language: Comoran Communication Ability: Effective Visual Impairment: No Limitations Hearing Ability: Hard of Hearing 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 Required: No Beliefs That Will Affect Care: None marital status: Single Current Living Situation: Alone current occupational status: retired How many Children do You have: 4 Other Information That Helps Us Care for You: No Feels Safe at Home: Yes Safety Concerns: Feels Safe At This Time Childhood Exposure to Second-Hand Smoke: Yes caffeine: Yes (coffee) during the past year weight has: remained stable Dental Care, Regularly: No Physical Activity Frequency: Daily Seatbelt Use: always Sunscreen Use: No Assistive Devices: Cane and Walker Review of Systems Review of Systems: Unobtainable due to mental health condition Physical Exam Physical Exam: General: Awake Cooperative. Not oriented to year HEENT: Sclera anicteric Lungs: Clear to auscultation with few crackles at base Cardiac: Irregularly irregular. Normal rate. no murmurs Extremities/vascular: --Both feet cool to touch. Mild rubor t race edema bilaterally --Radial 2+ bilaterally --Femoral 1+ bilaterally. Nonpalpable popliteal pulse --DP/PT diminished bilaterally Sluggish capillary refill bilaterally --Left heel pressure ulcer healed Several small (<0.5 cm) areas of black eschar over first. Neurologic: Diminished sensation in feet to light touch Results & Data Vital Signs (Past 12 Hours) Vital Signs Temp Pulse Pulse Resp BP BP Pulse Ox 06/21/23 19:56 97.7 F 92 H 15 120/73 95 06/21/23 14:51 96 H 06/21/23 14:48 97.5 F L 83 16 103/65 97 06/21/23 11:06 97.5 F L 88 20 133/95 98 O2 Del Method 06/21/23 19:56 Room Air 06/21/23 14:51 06/21/23 14:48 Room Air 06/21/23 11:06 Room Air PG Care Time/CCT Total # of Minutes Spent Total Time Spent with Patient: Total time spent is greater than 50% in coordination of care (as documented) at patient's floor/unit and/or counseling patient: Coding Level of Care Code 88469 IN/OBS CONSULT LVL 4,60M Diagnoses PAD (peripheral artery disease) I73.9
[2023-06-22] MEDS: PHENobarbital sodium 65 MG/ML VIAL IV PRN (05:10)
[2023-06-22] MEDS: LEVOTHYROXINE SODIUM 50 MCG TABLET PO SCH (06:01)
[2023-06-22 06:58] LABS: Basophils # (auto) 0.08 K/uL (0.00-0.20); Eosinophils # (auto) 0.23 K/uL (0.00-0.50); Eosinophils % (auto) 2.9 %; Hematocrit (blood only) 36.4 % (42.0-52.0); Hemoglobin 12.4 g/dl (14.0-18.0); Immature Granulocytes # (auto) 0.03 K/uL (0.01-0.20); Immature Granulocytes % (auto) 0.4 %; Lymphocytes # (auto) 1.35 K/uL (1.20-3.40); Mean Corpuscular Hemoglobin 29.6 pg (25.0-34.0); Mean Corpuscular Hgb Conc 34.1 g/dL (32.0-36.0); Mean Corpuscular Volume 86.9 fL (80.0-100.0); Monocytes # (auto) 0.74 K/uL (0.11-0.59); Monocytes % (auto) 9.3 %; Neutrophils # (auto) 5.49 K/uL (1.40-6.50); Neutrophils % (auto) 69.4 %; Platelet Count 158 K/uL (130-400); RDW Coefficient of Variation 17.4 % (11.5-14.5); RDW Standard Deviation 53.4 fL (36.4-46.3); Red Blood Count 4.19 M/uL (4.70-6.10); White Blood Count 7.92 K/ul (4.8-10.8)
[2023-06-22 07:18] LABS: Albumin Globulin Ratio 1.2 (0.9-2); Albumin Level 3.1 gm/dl (3.4-5.0); BUN Creatinine Ratio 21.5 (10-20); Bilirubin,Total 0.8 mg/dl (0.2-1.0); Creatinine Clr Calc Pharmacy 53.4 ml/min; Est GFR (African American) 68.9 ml/min; Est GFR (Non-African American) 59.5 ml/min; Globulin 2.6 gm/dl (2.5-4.0); Potassium 3.8 mmol/L (3.5-5.1); Total Protein 5.7 gm/dl (6.0-8.3)
[2023-06-22] MEDS: INSULIN ASPART PER UNIT CHARGE SC SCH ×4 (08:58→20:43)
[2023-06-22] MEDS: POTASSIUM CHLORIDE CRTAB 20 MEQ TABCR PO SCH (08:59)
[2023-06-22] MEDS: FOLIC ACID 1 MG TAB PO SCH (08:59)
[2023-06-22] MEDS: THIAMINE HCL 100 MG in SYRINGE 9 ML IV SCH (08:59)
[2023-06-22] MEDS: APIXABAN 5 MG TABLET PO SCH ×2 (08:59→20:39)
[2023-06-22] MEDS: GABAPENTIN 100 MG CAP PO SCH ×3 (09:00→22:01)
[2023-06-22] MEDS: CLOPIDOGREL BISULFATE 75 MG TAB PO SCH (09:00)
[2023-06-22] MEDS: FAMOTIDINE 20 MG TAB PO SCH ×2 (09:00→20:38)
[2023-06-22] MEDS: METOPROLOL SUCC 25MG EXT REL TAB PO SCH ×2 (09:00→20:38)
[2023-06-22] MEDS: ATORVASTATIN 40 MG TAB PO SCH (09:00)
[2023-06-22] MEDS: CLOTRIMAZOLE 1% CR 15 GM TUBE EXT SCH ×2 (09:00→20:37)
[2023-06-22] MEDS: FLUTICASONE/VILANTEROL 200/25MCG 14 PUFFS/INHALER INH SCH (09:01)
[2023-06-22] MEDS: ONDANSETRON INJ 2 MG/ML 2 ML VIAL IV PRN (10:13)
--- NOTE | 2023-06-22 15:06 | Pharmacy Report ---
Pharmacy Glycemic Short Note 2 - Date of Service June 22, 2023 - Glycemic Short BSG Results (Last 24 hours): 06/21/23 06/21/23 06/21/23 16:24 19:03 20:29 Glucose POC Glucose 131 H 189 H 251 H 06/22/23 06/22/23 06/22/23 06:06 07:11 11:07 Glucose 96 POC Glucose 98 147 H OUTPATIENT ANTIDIABETIC REGIMEN: * Insulin glargine 10 units daily * Farxiga 10 mg daily * A1c 7.4% 05/06/23 ASSESSMENT: 06/22 * Stressors stable * AM fasting BSG below goal despite only 5 units of Lantus yesterday. Will hold Lantus today and resume tomorrow, but only if AM fasting BSG >120 mg/dL * No CHO ratio ordered, which likely remains reasonable. However, will add VERY loose CHO ratio, not to provide significant insulin coverage, but to ensure CHO are counted/documented to determine if additional changes need to be made 06/21 * Patient admitted 06/19 with fall in the setting of alcohol use, hyponatremia, patient also has a history of CHF and type II diabetes * Consulted this AM after fasting on lab 30 mg/dL- patient had been receiving 7 units BID of lantus, held this mornings dose, will scale PM 0/5 units * Carb ratio removed by hospitalist, lunch BSG 112 mg/dl- will monitor need to resume PLAN FOR INPATIENT GLYCEMIC CONTROL: * Hold outpatient oral diabetes medications * Basal insulin * Lantus 5 units qAM. Hold if BSG less than 120 mg/dL * Bolus insulin * NovoLog per scale ACHS or Q6hrs while NPO * Goal Range: Low 110 mg/dL - High 140 mg/dL * Correction Factor: 55 mg/dL/unit * Nutritional / Prandial insulin per carb ratio of 1 unit per 70 grams CHO consumed
[2023-06-22] MEDS ORDERED: LORazepam 1 MG in SYRINGE 0.5 ML IV STA (18:25)
--- NOTE | 2023-06-22 20:48 | Hospitalist Progress Note ---
Date of Service June 22, 2023 Assessment & Plan (1) Fall: Plan: Fall , down for 6 hours In the setting of alcohol use CThead/C-spine/abdomen/pelvis without acute findings Transient right lower quadrant pain which resolved - Discussed with daughter. Falls often, very week. Had both depression which worsens his drinking particularly around the holidays which increases ETOH use. When he is weak and falling his needs exceed the level of care he has at home - PT/OT/CM consulted continue phenobarbital taper (2) Alcohol abuse: Plan: - Patient was reportedly found down surrounded by 14 beer cans - Ethyl alcohol level mildly elevated at 11.0 on arrival - Lipase WNL at 25 Patient on gabapentin protocol. AWSS protocols with phenobarbital as needed. Clinically improving without additional doses required 06/21 - Seizure precautions - Continue home dose of gabapentin 100 mg p.o. TID - Vitamin B1, B12, and folate levels ordered, pending - High-dose thiamine protocol started (3) Acute hyponatremia: Plan: Sodium 118 on arrival. Gradually uptrending. Lasix continued With signs of concurrent volume overload including mild pulmonary edema and lower extremity stasis Is also with 3+ proteinuria, urine osmolality is low, urine sodium is negative, serum sodium is 119. Suspect combination of fluid overload and potomanic solute depletion Goal change of 8 mEq per 24 hours, if rising more than 10 per 24 may reverse with D5 Fluid restricted, continue diuresis with Lasix. ?Total body sodium low with high alcohol intake, has a clear free water excess at time of admission. Diuresis continued for net free water loss, Adjust salt restriction/supplementation as indicated on reassessment (4) Elevated serum lactate dehydrogenase: Plan: Elevated lactate at 5.6 on arrival, repeat 3.9, improving. Suspected clearance/TB. No signs of sepsis on reassessment. No leukocytosis; afebrile PCT WNL Blood cultures remain negative (5) CHF (congestive heart failure): Plan: BNP elevated at 3917 on arrival Most recent echo on 05/12/2023 revealed LVEF of 25-30%, elevated RVSP at 4050mmHg; mild to moderate gay valvular regurgitation Chest CT revealed small bilateral pleural effusions and cardiomegaly; no evidence of acute fractures or abnormality Patient is not compliant with Lasix at home Lasix IV continued for clinical volume overload (6) Abnormal LFTs: Plan: Total bilirubin elevated at 1.8, AST elevated at 49, alk phos elevated at 109 In the setting of alcohol abuse LFTs are improving (7) T2DM (type 2 diabetes mellitus): Plan: Last A1c 7.4% on 05/06/2023; no need to repeat Glucose 143 on arrival Hold Farxiga Enalapril held for elevated Cr Lantus 7u BID BSG range 110-140mg/dL, CF 55, carb ratio 18. Dose reduced 06/21 for AM hypglycemia, no CR, lantus decreased to 5u. +glycemic consult BSG ACHS T2DM diet Adjust regimen as needed (8) Elevated troponin: Plan: Troponin 67.2-->63.4 on arrival No chest pain, no signs of ACS Continuous telemetry monitoring Nitrostat as needed for chest pain (9) PAF (paroxysmal atrial fibrillation): Plan: EKG on arrival showed A-fib with RVR at 105 bpm; QTc 494 Continue metoprolol Continue apixaban PCU telemetry (10) HTN (hypertension): Plan: While metoprolol 100 mg daily is in the patient's med rec, it looks like it was changed to metoprolol 25 mg p.o. BID on 05/22 Continue metoprolol, adjust as needed. Normotensive 06/21 (11) HLD (hyperlipidemia): Plan: Continue atorvastatin (12) COPD (chronic obstructive pulmonary disease): Plan: Continue home inhalers as needed (13) Hypothyroidism: Plan: Continue levothyroxine (14) GERD (gastroesophageal reflux disease): Plan: Continue famotidine (15) CAD (coronary atherosclerotic disease): Plan: Hx of cardiac cath on 10/11/2022 Continue metoprolol, atorvastatin, Plavix. Enalapril temporarily held. no chest pain on admit, minimally elevated trop downtrending (16) Anemia: Plan: Hgb 12.2 and Hct 35.1 at time of admission No signs of active bleeding on arrival; ?Chronic/EtOH suppression (17) Urine retention: Plan: Perez catheter placed on admission (18) Acute encephalopathy: Plan: ? wernickes/etoh High-dose thiamine protocol started Continue withdrawal protocol No neurologic deficits on repeat exam (19) PAD (peripheral artery disease): Plan: Eschar noted on left 1st toe; no signs of osteo on x-ray. Arterial ultrasound with severe diffuse atherosclerotic change with occlusion of the peroneal and posterior tibial arteries. There is minimal flow seen within the anterior tibial artery with no flow seen in dorsalis pedis artery. Dr Henry to see, limited opens for revascularization. Appreciate recommendations. Plan Disposition: PCU telemetry Full code T2DM, (recommend 1500 mL fluid restriction). ?total sodium deficit with etoh vs relative with free water excess. No siadh on urine labs. VTE PPx: On Eliquis Admission and Anticipated Discharge Date Admission Date: June 19, 2023 Subjective 73 yo male reports no new symptoms. He understands he is in the hospital for a fall. Review of Systems Review of Systems: All systems reviewed & are unremarkable except as noted in HPI & below Physical Exam Physical Exam: General: Awakens easily, oriented to name only. NAD. Cooperative. Not oriented to year HEENT: Atraumatic, normocephalic. Vision/hearing grossly intact. PERLAA. Pulm: Bibasilar crackles which improve on deep inspiration. symmetrical chest rise. No increased work of breathing. No respiratory distress. Cardiac: RRR, -mrg. Radial pulses intact and symmetrical. Trace JVD at the angle of the clavicle which increases by about 1 cm with HJR Abdominal: Nontender, nondistended, soft. BS present. Ext: Upper extremity resting tremor improved. Left foot remains with 2+ edema, sluggish capillary refill, no clinical change. Right foot with pedal edema Results & Data Results & Data Vital Signs (Past 12 Hours) Vital Signs Temp Pulse Pulse Resp BP Pulse Ox O2 Del Method 06/22/23 20:33 35.7 C L 96 H 18 140/92 98 Room Air 06/22/23 15:29 99 H 06/22/23 15:18 36.4 C L 85 18 114/82 96 Room Air 06/22/23 11:05 36.6 C 81 17 117/87 98 Room Air 06/22/23 09:30 Room Air PG Care Time/CCT Total # of Minutes Spent Total Time Spent with Patient: Total time spent is greater than 50% in coordination of care (as documented) at patient's floor/unit and/or counseling patient: Coding Level of Care Code 40921 SUB INP/OBS CARE 2/35MIN Diagnoses Fall W19.XXXA Alcohol abuse F10.10 Acute hyponatremia E87.1 Elevated serum lactate dehydrogenase R74.02 CHF (congestive heart failure) I50.9 Abnormal LFTs R79.89 T2DM (type 2 diabetes mellitus) E11.9 Elevated troponin R77.8 PAF (paroxysmal atrial fibrillation) I48.0 HTN (hypertension) I10 HLD (hyperlipidemia) E78.5 COPD (chronic obstructive pulmonary disease) J44.9 Hypothyroidism E03.9 GERD (gastroesophageal reflux disease) K21.9 CAD (coronary atherosclerotic disease) I25.10 Anemia D64.9 Urine retention R33.9 Acute encephalopathy G93.40 PAD (peripheral artery disease) I73.9
[2023-06-22] MEDS ORDERED: PHENobarbitaL 30 MG TAB PO SCH (21:00)
[2023-06-23] MEDS: LEVOTHYROXINE SODIUM 50 MCG TABLET PO SCH (06:37)
[2023-06-23 07:23] LABS: Hematocrit (blood only) 37.8 % (42.0-52.0); Hemoglobin 12.6 g/dl (14.0-18.0); Mean Corpuscular Hemoglobin 29.4 pg (25.0-34.0); Mean Corpuscular Hgb Conc 33.3 g/dL (32.0-36.0); Mean Corpuscular Volume 88.1 fL (80.0-100.0); Platelet Count 148 K/uL (130-400); RDW Coefficient of Variation 17.7 % (11.5-14.5); RDW Standard Deviation 55.7 fL (36.4-46.3); Red Blood Count 4.29 M/uL (4.70-6.10); White Blood Count 7.71 K/ul (4.8-10.8)
[2023-06-23 07:43] LABS: Albumin Globulin Ratio 1.1 (0.9-2); Albumin Level 3.1 gm/dl (3.4-5.0); BUN Creatinine Ratio 19.7 (10-20); Bilirubin,Total 0.8 mg/dl (0.2-1.0); Calcium 8.1 mg/dl (8.6-10.3); Creatinine Clr Calc Pharmacy 48.9 ml/min; Est GFR (Non-African American) 53.5 ml/min; Globulin 2.7 gm/dl (2.5-4.0); Potassium 4.3 mmol/L (3.5-5.1); Total Protein 5.8 gm/dl (6.0-8.3)
[2023-06-23] MEDS: INSULIN ASPART PER UNIT CHARGE SC SCH ×4 (08:36→22:01)
[2023-06-23] MEDS: FLUTICASONE/VILANTEROL 200/25MCG 14 PUFFS/INHALER INH SCH (08:36)
[2023-06-23] MEDS: FAMOTIDINE 20 MG TAB PO SCH ×2 (08:37→20:16)
[2023-06-23] MEDS: THIAMINE HCL 100 MG in SYRINGE 9 ML IV SCH (08:37)
[2023-06-23] MEDS: GABAPENTIN 100 MG CAP PO SCH ×3 (08:37→20:17)
[2023-06-23] MEDS: CLOTRIMAZOLE 1% CR 15 GM TUBE EXT SCH ×2 (08:37→20:18)
[2023-06-23] MEDS: POTASSIUM CHLORIDE CRTAB 20 MEQ TABCR PO SCH (08:38)
[2023-06-23] MEDS: FOLIC ACID 1 MG TAB PO SCH (08:38)
[2023-06-23] MEDS: ATORVASTATIN 40 MG TAB PO SCH (08:38)
[2023-06-23] MEDS: APIXABAN 5 MG TABLET PO SCH ×3 (08:38→20:17)
[2023-06-23] MEDS: METOPROLOL SUCC 25MG EXT REL TAB PO SCH ×2 (08:38→20:18)
[2023-06-23] MEDS: CLOPIDOGREL BISULFATE 75 MG TAB PO SCH (08:38)
[2023-06-23] MEDS ORDERED: LANTUS PER UNIT CHARGE SQ SCH (09:00)
[2023-06-23] MEDS: PHENobarbitaL 30 MG TAB PO SCH ×2 (09:40→20:14)
[2023-06-23] MEDS ORDERED: PHENobarbital sodium 65 MG/ML VIAL IV STA (21:15)
--- NOTE | 2023-06-23 21:45 | Hospitalist Progress Note ---
Date of Service June 23, 2023 Assessment & Plan (1) Fall: Plan: Fall , down for 6 hours In the setting of alcohol use CThead/C-spine/abdomen/pelvis without acute findings Transient right lower quadrant pain which resolved - Discussed with daughter. Falls often, very week. Had both depression which worsens his drinking particularly around the holidays which increases ETOH use. When he is weak and falling his needs exceed the level of care he has at home - PT/OT/CM consulted continue phenobarbital taper Will continue for an additional 24 hours BID. (2) Alcohol abuse: Plan: - Patient was reportedly found down surrounded by 14 beer cans - Ethyl alcohol level mildly elevated at 11.0 on arrival - Lipase WNL at 25 Patient on gabapentin protocol. AWSS protocols with phenobarbital as needed. Clinically improving without additional doses required 06/21 - Seizure precautions - Continue home dose of gabapentin 100 mg p.o. TID - Vitamin B1, B12, and folate levels ordered, pending - High-dose thiamine protocol started (3) Acute hyponatremia: Plan: Sodium 118 on arrival. Gradually uptrending. Lasix continued With signs of concurrent volume overload including mild pulmonary edema and lower extremity stasis Is also with 3+ proteinuria, urine osmolality is low, urine sodium is negative, serum sodium is 119. Suspect combination of fluid overload and potomanic solute depletion Goal change of 8 mEq per 24 hours, if rising more than 10 per 24 may reverse with D5 Fluid restricted, continue diuresis with Lasix. ?Total body sodium low with high alcohol intake, has a clear free water excess at time of admission. Diuresis continued for net free water loss, Adjust salt restriction /supplementation as indicated on reassessment (4) Elevated serum lactate dehydrogenase: Plan: Elevated lactate at 5.6 on arrival, repeat 3.9, improving. Suspected clearance/TB. No signs of sepsis on reassessment. No leukocytosis; afebrile PCT WNL Blood cultures remain negative (5) CHF (congestive heart failure): Plan: BNP elevated at 3917 on arrival Most recent echo on 05/12/2023 revealed LVEF of 25-30%, elevated RVSP at 4050mmHg; mild to moderate gay valvular regurgitation Chest CT revealed small bilateral pleural effusions and cardiomegaly; no evidence of acute fractures or abnormality Patient is not compliant with Lasix at home Lasix IV continued for clinical volume overload (6) Abnormal LFTs: Plan: Total bilirubin elevated at 1.8, AST elevated at 49, alk phos elevated at 109 In the setting of alcohol abuse LFTs are improving (7) T2DM (type 2 diabetes mellitus): Plan: Last A1c 7.4% on 05/06/2023; no need to repeat Glucose 143 on arrival Hold Farxiga Enalapril held for elevated Cr Lantus 7u BID BSG range 110-140mg/dL, CF 55, carb ratio 18. Dose reduced 06/21 for AM hypglycemia, no CR, lantus decreased to 5u. +glycemic consult BSG ACHS T2DM diet Adjust regimen as needed (8) Elevated troponin: Plan: Troponin 67.2-->63.4 on arrival No chest pain, no signs of ACS Continuous telemetry monitoring Nitrostat as needed for chest pain (9) PAF (paroxysmal atrial fibrillation): Plan: EKG on arrival showed A-fib with RVR at 105 bpm; QTc 494 Continue metoprolol Continue apixaban PCU telemetry (10) HTN (hypertension): Plan: While metoprolol 100 mg daily is in the patient's med rec, it looks like it was changed to metoprolol 25 mg p.o. BID on 05/22 Continue metoprolol, adjust as needed. Normotensive 06/21 (11) HLD (hyperlipidemia): Plan: Continue atorvastatin (12) COPD (chronic obstructive pulmonary disease): Plan: Continue home inhalers as needed (13) Hypothyroidism: Plan: Continue levothyroxine (14) GERD (gastroesophageal reflux disease): Plan: Continue famotidine (15) CAD (coronary atherosclerotic disease): Plan: Hx of cardiac cath on 10/11/2022 Continue metoprolol, atorvastatin, Plavix. Enalapril temporarily held. no chest pain on admit, minimally elevated trop downtrending (16) Anemia: Plan: Hgb 12.2 and Hct 35.1 at time of admission No signs of active bleeding on arrival; ?Chronic/EtOH suppression (17) Urine retention: Plan: Perez catheter placed on admission (18) Acute encephalopathy: Plan: ? wernickes/etoh High-dose thiamine protocol started Continue withdrawal protocol No neurologic deficits on repeat exam (19) PAD (peripheral artery disease): Plan: Eschar noted on left 1st toe; no signs of osteo on x-ray. Arterial ultrasound with severe diffuse atherosclerotic change with occlusion of the peroneal and posterior tibial arteries. There is minimal flow seen within the anterior tibial artery with no flow seen in dorsalis pedis artery. Dr Henry to see, limited opens for revascularization. Appreciate recommendations. Plan Disposition: PCU telemetry Full code T2DM, (recommend 1500 mL fluid restriction). ?total sodium deficit with etoh vs relative with free water excess. No siadh on urine labs. VTE PPx: On Eliquis Admission and Anticipated Discharge Date Admission Date: June 19, 2023 Subjective 73 yo male is a poor historian. No new complaints. Review of Systems Review of Systems: All systems reviewed & are unremarkable except as noted in HPI & below Physical Exam Physical Exam: General: Awakens easily, oriented to name only. NAD. Cooperative. Not oriented to year HEENT: Atraumatic, normocephalic. Vision/hearing grossly intact. PERLAA. Pulm: Bibasilar crackles which improve on deep inspiration. symmetrical chest rise. No increased work of breathing. No respiratory distress. Cardiac: RRR, -mrg. Radial pulses intact and symmetrical. Trace JVD at the angle of the clavicle which increases by about 1 cm with HJR Abdominal: Nontender, nondistended, soft. BS present. Ext: Upper extremity resting tremor improved. Left foot remains with 2+ edema, sluggish capillary refill, no clinical change. Right foot with pedal edema Results & Data Results & Data Vital Signs (Past 12 Hours) Vital Signs Temp Pulse Resp BP BP Pulse Ox O2 Del Method 06/23/23 19:41 36.1 C L 99 H 22 144/99 H 96 Room Air 06/23/23 15:16 83 19 115/80 97 Room Air 06/23/23 11:14 36.7 C 86 14 122/84 Room Air PG Care Time/CCT Total # of Minutes Spent Total Time Spent with Patient: Total time spent is greater than 50% in coordination of care (as documented) at patient's floor/unit and/or counseling patient: Coding Level of Care Code 06036 SUB INP/OBS CARE 2/35MIN Diagnoses Fall W19.XXXA Alcohol abuse F10.10 Acute hyponatremia E87.1 Elevated serum lactate dehydrogenase R74.02 CHF (congestive heart failure) I50.9 Abnormal LFTs R79.89 T2DM (type 2 diabetes mellitus) E11.9 Elevated troponin R77.8 PAF (paroxysmal atrial fibrillation) I48.0 HTN (hypertension) I10 HLD (hyperlipidemia) E78.5 COPD (chronic obstructive pulmonary disease) J44.9 Hypothyroidism E03.9 GERD (gastroesophageal reflux disease) K21.9 CAD (coronary atherosclerotic disease) I25.10 Anemia D64.9 Urine retention R33.9 Acute encephalopathy G93.40 PAD (peripheral artery disease) I73.9
[2023-06-23] MEDS ORDERED: PHENobarbital sodium 65 MG/ML VIAL IM STA (21:52)
[2023-06-24] MEDS ORDERED: PHENobarbital sodium 65 MG/ML VIAL IM STA (00:58)
[2023-06-24] MEDS: LEVOTHYROXINE SODIUM 50 MCG TABLET PO SCH (06:48)
[2023-06-24 07:10] LABS: Hematocrit (blood only) 36.6 % (42.0-52.0); Hemoglobin 12.8 g/dl (14.0-18.0); Mean Corpuscular Hemoglobin 29.8 pg (25.0-34.0); Mean Corpuscular Volume 85.1 fL (80.0-100.0); Mean Platelet Volume 11.6 fL (9.4-12.4); Platelet Count 154 K/uL (130-400); RDW Coefficient of Variation 17.8 % (11.5-14.5); RDW Standard Deviation 54.4 fL (36.4-46.3)
[2023-06-24 07:17] LABS: BUN Creatinine Ratio 21.3 (10-20); Calcium 8.6 mg/dl (8.6-10.3); Creatinine Clr Calc Pharmacy 45.8 ml/min; Est GFR (African American) 57.3 ml/min; Est GFR (Non-African American) 49.4 ml/min
[2023-06-24] MEDS: GABAPENTIN 100 MG CAP PO SCH ×3 (08:26→21:33)
[2023-06-24] MEDS: CLOTRIMAZOLE 1% CR 15 GM TUBE EXT SCH ×2 (08:26→21:36)
[2023-06-24] MEDS: FLUTICASONE/VILANTEROL 200/25MCG 14 PUFFS/INHALER INH SCH (08:26)
[2023-06-24] MEDS: FAMOTIDINE 20 MG TAB PO SCH ×2 (08:26→21:33)
[2023-06-24] MEDS: ATORVASTATIN 40 MG TAB PO SCH (08:27)
[2023-06-24] MEDS: POTASSIUM CHLORIDE CRTAB 20 MEQ TABCR PO SCH (08:27)
[2023-06-24] MEDS: CLOPIDOGREL BISULFATE 75 MG TAB PO SCH (08:27)
[2023-06-24] MEDS: FOLIC ACID 1 MG TAB PO SCH (08:27)
[2023-06-24] MEDS: METOPROLOL SUCC 25MG EXT REL TAB PO SCH ×2 (08:27→21:34)
[2023-06-24] MEDS: APIXABAN 5 MG TABLET PO SCH ×2 (08:27→21:36)
[2023-06-24] MEDS: THIAMINE HCL 100 MG in SYRINGE 9 ML IV SCH (08:28)
[2023-06-24] MEDS: INSULIN ASPART PER UNIT CHARGE SC SCH ×4 (08:36→21:35)
[2023-06-24] MEDS ORDERED: LORazepam 1 MG TAB PO STA (10:03)
--- NOTE | 2023-06-24 10:43 | Hospitalist Progress Note ---
Date of Service June 24, 2023 Assessment & Plan (1) Fall: Plan: Fall , down for 6 hours In the setting of alcohol use CThead/C-spine/abdomen/pelvis without acute findings Transient right lower quadrant pain which resolved - Discussed with daughter. Falls often, very week. Had both depression which worsens his drinking particularly around the holidays which increases ETOH use. When he is weak and falling his needs exceed the level of care he has at home - PT/OT/CM consulted completed phenobarbital taper. Patient continues to be confused. Did require a dose of zyprexa. Vital signs are stable. At this point, likely will focus more on delirium than delirium tremens. WIll try to limit benzos moving forward. May consider zyprexa. (2) Alcohol abuse: Plan: - Patient was reportedly found down surrounded by 14 beer cans - Ethyl alcohol level mildly elevated at 11.0 on arrival - Lipase WNL at 25 Patient on gabapentin protocol. AWSS protocols with phenobarbital as needed. Clinically improving without additional doses required 06/21 - Seizure precautions - Continue home dose of gabapentin 100 mg p.o. TID - Vitamin B1, B12, and folate levels ordered, pending - High-dose thiamine protocol started (3) Acute hyponatremia: Plan: Sodium 118 on arrival. Gradually uptrending. Lasix continued With signs of concurrent volume overload including mild pulmonary edema and lower extremity stasis Is also with 3+ proteinuria, urine osmolality is low, urine sodium is negative, serum sodium is 119. Suspect combination of fluid overload and potomanic solute depletion Goal change of 8 mEq per 24 hours, if rising more than 10 per 24 may reverse with D5 Fluid restricted, continue diuresis with Lasix. ?Total body sodium low with high alcohol intake, has a clear free water excess at time of admission. Diuresis continued for net free water loss, Adjust salt restriction/supplementation as indicated on reassessment (4) Elevated serum lactate dehydrogenase: Plan: Elevated lactate at 5.6 on arrival, repeat 3.9, improving. Suspected clearance/TB. No signs of sepsis on reassessment. No leukocytosis; afebrile PCT WNL Blood cultures remain negative (5) CHF (congestive heart failure): Plan: BNP elevated at 3917 on arrival Most recent echo on 05/12/2023 revealed LVEF of 25-30%, elevated RVSP at 4050mmHg; mild to moderate gya valvular regurgitation Chest CT revealed small bilateral pleural effusions and cardiomegaly; no evidence of acute fractures or abnormality Patient is not compliant with Lasix at home Lasix IV continued for clinical volume overload (6) Abnormal LFTs: Plan: Total bilirubin elevated at 1.8, AST elevated at 49, alk phos elevated at 109 In the setting of alcohol abuse LFTs are improving (7) T2DM (type 2 diabetes mellitus): Plan: Last A1c 7.4% on 05/06/2023; no need to repeat Glucose 143 on arrival Hold Farxiga Enalapril held for elevated Cr Lantus 7u BID BSG range 110-140mg/dL, CF 55, carb ratio 18. Dose reduced 06/21 for AM hypglycemia, no CR, lantus decreased to 5u. +glycemic consult BSG ACHS T2DM diet Adjust regimen as needed (8) Elevated troponin: Plan: Troponin 67.2-->63.4 on arrival No chest pain, no signs of ACS Continuous telemetry monitoring Nitrostat as needed for chest pain (9) PAF (paroxysmal atrial fibrillation): Plan: EKG on arrival showed A-fib with RVR at 105 bpm; QTc 494 Continue metoprolol Continue apixaban PCU telemetry (10) HTN (hypertension): Plan: While metoprolol 100 mg daily is in the patient's med rec, it looks like it was changed to metoprolol 25 mg p.o. BID on 05/22 Continue metoprolol, adjust as needed. Normotensive 06/21 (11) HLD (hyperlipidemia): Plan: Continue atorvastatin (12) COPD (chronic obstructive pulmonary disease): Plan: Continue home inhalers as needed (13) Hypothyroidism: Plan: Continue levothyroxine (14) GERD (gastroesophageal reflux disease): Plan: Continue famotidine (15) CAD (coronary atherosclerotic disease): Plan: Hx of cardiac cath on 10/11/2022 Continue metoprolol, atorvastatin, Plavix. Enalapril temporarily held. no chest pain on admit, minimally elevated trop downtrending (16) Anemia: Plan: Hgb 12.2 and Hct 35.1 at time of admission No signs of active bleeding on arrival; ?Chronic/EtOH suppression (17) Urine retention: Plan: Perez catheter placed on admission (18) Acute encephalopathy: Plan: ? wernickes/etoh High-dose thiamine protocol started Continue withdrawal protocol No neurologic deficits on repeat exam (19) PAD (peripheral artery disease): Plan: Eschar noted on left 1st toe; no signs of osteo on x-ray. Arterial ultrasound with severe diffuse atherosclerotic change with occlusion of the peroneal and posterior tibial arteries. There is minimal flow seen within the anterior tibial artery with no flow seen in dorsalis pedis artery. Dr Henry to see, limited opens for revascularization. Appreciate recommendations. Plan Disposition: PCU telemetry Full code T2DM, (recommend 1500 mL fluid restriction). ?total sodium deficit with etoh vs relative with free water excess. No siadh on urine labs. VTE PPx: On Eliquis Admission and Anticipated Discharge Date Admission Date: June 19, 2023 Subjective Discussed with nurse, Patient has been more confused and combative overnight. This morning not being able to be reoriented verbally. Review of Systems Review of Systems: All systems reviewed & are unremarkable except as noted in HPI & below Physical Exam Physical Exam: General: Awakens easily, oriented to name only. NAD. Cooperative. Not oriented to year HEENT: Atraumatic, normocephalic. Vision/hearing grossly intact. PERLAA. Pulm: Bibasilar crackles which improve on deep inspiration. symmetrical chest rise. No increased work of breathing. No respiratory distress. Cardiac: RRR, -mrg. Radial pulses intact and symmetrical. Trace JVD at the angle of the clavicle which increases by about 1 cm with HJR Abdominal: Nontender, nondistended, soft. BS present. Ext: Upper extremity resting tremor improved. Left foot remains with 2+ edema, sluggish capillary refill, no clinical change. Right foot with pedal edema Results & Data Results & Data Vital Signs (Past 12 Hours) Vital Signs Temp Pulse Resp BP Pulse Ox O2 Del Method 06/24/23 08:43 36.4 C L 87 12 150/91 H 06/23/23 22:53 36.5 C 90 14 138/92 97 Room Air PG Care Time/CCT Total # of Minutes Spent Total Time Spent with Patient: Total time spent is greater than 50% in coordination of care (as documented) at patient's floor/unit and/or counseling patient: Coding Level of Care Code 09443 SUB INP/OBS CARE 2/35MIN Diagnoses Fall W19.XXXA Alcohol abuse F10.10 Acute hyponatremia E87.1 Elevated serum lactate dehydrogenase R74.02 CHF (congestive heart failure) I50.9 Abnormal LFTs R79.89 T2DM (type 2 diabetes mellitus) E11.9 Elevated troponin R77.8 PAF (paroxysmal atrial fibrillation) I48.0 HTN (hypertension) I10 HLD (hyperlipidemia) E78.5 COPD (chronic obstructive pulmonary disease) J44.9 Hypothyroidism E03.9 GERD (gastroesophageal reflux disease) K21.9 CAD (coronary atherosclerotic disease) I25.10 Anemia D64.9 Urine retention R33.9 Acute encephalopathy G93.40 PAD (peripheral artery disease) I73.9
[2023-06-24] MEDS: LANTUS PER UNIT CHARGE SC SCH (12:12)
[2023-06-24] MEDS ORDERED: PHENobarbitaL 30 MG TAB PO SCH (21:00)
[2023-06-25] MEDS: OLANZapine 5 MG TABLET PO SCH ×2 (00:01→20:27)
[2023-06-25] MEDS: LEVOTHYROXINE SODIUM 50 MCG TABLET PO SCH (05:46)
[2023-06-25] MEDS: INSULIN ASPART PER UNIT CHARGE SC SCH ×4 (07:21→20:29)
[2023-06-25 07:36] LABS: Hematocrit (blood only) 37.6 % (42.0-52.0); Mean Corpuscular Hemoglobin 29.7 pg (25.0-34.0); Mean Corpuscular Hgb Conc 34.6 g/dL (32.0-36.0); Mean Corpuscular Volume 85.8 fL (80.0-100.0); Mean Platelet Volume 11.3 fL (9.4-12.4); Platelet Count 147 K/uL (130-400); RDW Coefficient of Variation 17.7 % (11.5-14.5); RDW Standard Deviation 55.1 fL (36.4-46.3); Red Blood Count 4.38 M/uL (4.70-6.10); White Blood Count 5.31 K/ul (4.8-10.8)
[2023-06-25 07:58] LABS: BUN Creatinine Ratio 24.3 (10-20); Calcium 8.4 mg/dl (8.6-10.3); Creatinine Clr Calc Pharmacy 62.7 ml/min; Est GFR (African American) 83.7 ml/min; Est GFR (Non-African American) 72.2 ml/min; Potassium 4.5 mmol/L (3.5-5.1)
[2023-06-25] MEDS: FLUTICASONE/VILANTEROL 200/25MCG 14 PUFFS/INHALER INH SCH (09:51)
[2023-06-25] MEDS: CLOTRIMAZOLE 1% CR 15 GM TUBE EXT SCH ×2 (09:52→20:30)
[2023-06-25] MEDS: THIAMINE HCL 100 MG in SYRINGE 9 ML IV SCH (09:52)
[2023-06-25] MEDS: APIXABAN 5 MG TABLET PO SCH ×2 (11:01→20:28)
[2023-06-25] MEDS: FAMOTIDINE 20 MG TAB PO SCH ×2 (11:02→20:30)
[2023-06-25] MEDS: ATORVASTATIN 40 MG TAB PO SCH (11:02)
[2023-06-25] MEDS: GABAPENTIN 100 MG CAP PO SCH ×3 (11:02→20:27)
[2023-06-25] MEDS: CLOPIDOGREL BISULFATE 75 MG TAB PO SCH (11:02)
[2023-06-25] MEDS: FOLIC ACID 1 MG TAB PO SCH (11:02)
[2023-06-25] MEDS: POTASSIUM CHLORIDE CRTAB 20 MEQ TABCR PO SCH (11:03)
[2023-06-25] MEDS: METOPROLOL SUCC 25MG EXT REL TAB PO SCH ×2 (11:03→20:28)
[2023-06-25] MEDS: LANTUS PER UNIT CHARGE SC SCH (11:45)
--- NOTE | 2023-06-25 22:23 | Hospitalist Progress Note ---
Date of Service June 25, 2023 Assessment & Plan (1) Fall: Plan: Fall , down for 6 hours In the setting of alcohol use CThead/C-spine/abdomen/pelvis without acute findings Transient right lower quadrant pain which resolved - Discussed with daughter. Falls often, very week. Had both depression which worsens his drinking particularly around the holidays which increases ETOH use. When he is weak and falling his needs exceed the level of care he has at home - PT/OT/CM consulted completed phenobarbital taper. Patient continues to be confused. Did require a dose of zyprexa. Vital signs are stable. At this point, likely will focus more on delirium than delirium tremens. As patient is outside of window for alcohol withdrawal. WIll try to limit benzos moving forward. Added zyprexa HS. (2) Alcohol abuse: Plan: - Patient was reportedly found down surrounded by 14 beer cans - Ethyl alcohol level mildly elevated at 11.0 on arrival - Lipase WNL at 25 Patient on gabapentin protocol. AWSS protocols with phenobarbital as needed. Clinically improving without additional doses required 06/21 - Seizure precautions - Continue home dose of gabapentin 100 mg p.o. TID - Vitamin B1, B12, and folate levels ordered, pending - High-dose thiamine protocol started (3) Acute hyponatremia: Plan: Sodium 118 on arrival. Gradually uptrending. Lasix continued With signs of concurrent volume overload including mild pulmonary edema and lower extremity stasis Is also with 3+ proteinuria, urine osmolality is low, urine sodium is negative, serum sodium is 119. Suspect combination of fluid overload and potomanic solute depletion Goal change of 8 mEq per 24 hours, if rising more than 10 per 24 may reverse with D5 Fluid restricted, continue diuresis with Lasix. ?Total body sodium low with high alcohol intake, has a clear free water excess at time of admission. Diuresis continued for net free water loss, Adjust salt restriction/supplementation as indicated on reassessment (4) Elevated serum lactate dehydrogenase: Plan: Elevated lactate at 5.6 on arrival, repeat 3.9, improving. Suspected clearance/TB. No signs of sepsis on reassessment. No leukocytosis; afebrile PCT WNL Blood cultures remain negative (5) CHF (congestive heart failure): Plan: BNP elevated at 3917 on arrival Most recent echo on 05/12/2023 revealed LVEF of 25-30%, elevated RVSP at 40 50mmHg; mild to moderate gay valvular regurgitation Chest CT revealed small bilateral pleural effusions and cardiomegaly; no evidence of acute fractures or abnormality Patient is not compliant with Lasix at home Lasix IV was used initially. now on hold for AZRA. will consider resuming lasix on (6) Abnormal LFTs: Plan: Total bilirubin elevated at 1.8, AST elevated at 49, alk phos elevated at 109 In the setting of alcohol abuse LFTs are improving (7) T2DM (type 2 diabetes mellitus): Plan: Last A1c 7.4% on 05/06/2023; no need to repeat Glucose 143 on arrival Hold Farxiga Enalapril held for elevated Cr Lantus 7u BID BSG range 110-140mg/dL, CF 55, carb ratio 18. Dose reduced 06/21 for AM hypglycemia, no CR, lantus decreased to 5u. +glycemic consult BSG ACHS T2DM diet Adjust regimen as needed (8) Elevated troponin: Plan: Troponin 67.2-->63.4 on arrival No chest pain, no signs of ACS Continuous telemetry monitoring Nitrostat as needed for chest pain (9) PAF (paroxysmal atrial fibrillation): Plan: EKG on arrival showed A-fib with RVR at 105 bpm; QTc 494 Continue metoprolol Continue apixaban PCU telemetry (10) HTN (hypertension): Plan: While metoprolol 100 mg daily is in the patient's med rec, it looks like it was changed to metoprolol 25 mg p.o. BID on 05/22 Continue metoprolol, adjust as needed. Normotensive 06/21 (11) HLD (hyperlipidemia): Plan: Continue atorvastatin (12) COPD (chronic obstructive pulmonary disease): Plan: Continue home inhalers as needed (13) Hypothyroidism: Plan: Continue levothyroxine (14) GERD (gastroesophageal reflux disease): Plan: Continue famotidine (15) CAD (coronary atherosclerotic disease): Plan: Hx of cardiac cath on 10/11/2022 Continue metoprolol, atorvastatin, Plavix. Enalapril temporarily held. no chest pain on admit, minimally elevated trop downtrending (16) Anemia: Plan: Hgb 12.2 and Hct 35.1 at time of admission No signs of active bleeding on arrival; ?Chronic/EtOH suppression (17) Urine retention: Plan: Perez catheter placed on admission (18) Acute encephalopathy: Plan: ? wernickes/etoh High-dose thiamine protocol started Continue withdrawal protocol No neurologic deficits on repeat exam (19) PAD (peripheral artery disease): Plan: Eschar noted on left 1st toe; no signs of osteo on x-ray. Arterial ultrasound with severe diffuse atherosclerotic change with occlusion of the peroneal and posterior tibial arteries. There is minimal flow seen within the anterior tibial artery with no flow seen in dorsalis pedis artery. Dr Henry to see, limited opens for revascularization. Appreciate recommendations. Plan Disposition: PCU telemetry Full code T2DM, (recommend 1500 mL fluid restriction). ?total sodium deficit with etoh vs relative with free water excess. No siadh on urine labs. VTE PPx: On Eliquis Admission and Anticipated Discharge Date Admission Date: June 19, 2023 Subjective Patient reports no new symptoms. Review of Systems Review of Systems: All systems reviewed & are unremarkable except as noted in HPI & below Physical Exam Physical Exam: General: Awake, oriented to name and place. NAD. Cooperative. Not oriented to year HEENT: Atraumatic, normocephalic. Vision/hearing grossly intact. PERLAA. Pulm: Bibasilar crackles which improve on deep inspiration. symmetrical chest rise. No increased work of breathing. No respiratory distress. Cardiac: RRR, -mrg. Radial pulses intact and symmetrical. Trace JVD at the angle of the clavicle which increases by about 1 cm with HJR Abdominal: Nontender, nondistended, soft. BS present. Ext: Upper extremity resting tremor improved. Left foot remains with 2+ edema, sluggish capillary refill, no clinical change. Right foot with pedal edema Results & Data Results & Data Vital Signs (Past 12 Hours) Vital Signs Temp Pulse Resp BP BP Pulse Ox O2 Del Method 06/25/23 20:00 Room Air 06/25/23 19:00 36.4 C L 85 19 133/89 98 Room Air 06/25/23 15:48 36.6 C 84 13 136/98 06/25/23 11:21 36.4 C L 86 12 137/108 H Room Air PG Care Time/CCT Total # of Minutes Spent Total Time Spent with Patient: Total time spent is greater than 50% in coordination of care (as documented) at patient's floor/unit and/or counseling patient: Coding Level of Care Code 30820 SUB INP/OBS CARE MIN Diagnoses Fall W19.XXXA Alcohol abuse F10.10 Acute hyponatremia E87.1 Elevated serum lactate dehydrogenase R74.02 CHF (congestive heart failure) I50.9 Abnormal LFTs R79.89 T2DM (type 2 diabetes mellitus) E11.9 Elevated troponin R77.8 PAF (paroxysmal atrial fibrillation) I48.0 HTN (hypertension) I10 HLD (hyperlipidemia) E78.5 COPD (chronic obstructive pulmonary disease) J44.9 Hypothyroidism E03.9 GERD (gastroesophageal reflux disease) K21.9 CAD (coronary atherosclerotic disease) I25.10 Anemia D64.9 Urine retention R33.9 Acute encephalopathy G93.40 PAD (peripheral artery disease) I73.9
[2023-06-26] MEDS: LEVOTHYROXINE SODIUM 50 MCG TABLET PO SCH (05:18)
[2023-06-26 05:49] LABS: Hematocrit (blood only) 41.6 % (42.0-52.0); Mean Corpuscular Hemoglobin 29.6 pg (25.0-34.0); Mean Corpuscular Hgb Conc 33.7 g/dL (32.0-36.0); Mean Corpuscular Volume 87.9 fL (80.0-100.0); Mean Platelet Volume 11.5 fL (9.4-12.4); Platelet Count 178 K/uL (130-400); RDW Coefficient of Variation 18.1 % (11.5-14.5); RDW Standard Deviation 57.1 fL (36.4-46.3); Red Blood Count 4.73 M/uL (4.70-6.10); White Blood Count 7.35 K/ul (4.8-10.8)
[2023-06-26 06:02] LABS: BUN Creatinine Ratio 19.5 (10-20); Calcium 8.7 mg/dl (8.6-10.3); Creatinine Clr Calc Pharmacy 43.4 ml/min; Est GFR (African American) 53.6 ml/min; Est GFR (Non-African American) 46.2 ml/min; Potassium 4.8 mmol/L (3.5-5.1)
[2023-06-26] MEDS: INSULIN ASPART PER UNIT CHARGE SC SCH ×4 (08:48→20:51)
[2023-06-26] MEDS: APIXABAN 5 MG TABLET PO SCH ×2 (08:50→20:52)
[2023-06-26] MEDS: THIAMINE HCL 200 MG in SODIUM CHLORIDE 0.9% 50 ML IV SCH ×2 (08:50→20:59)
[2023-06-26] MEDS: CLOPIDOGREL BISULFATE 75 MG TAB PO SCH (08:50)
[2023-06-26] MEDS: ATORVASTATIN 40 MG TAB PO SCH (08:50)
[2023-06-26] MEDS: CLOTRIMAZOLE 1% CR 15 GM TUBE EXT SCH ×2 (08:51→20:52)
[2023-06-26] MEDS: FLUTICASONE/VILANTEROL 200/25MCG 14 PUFFS/INHALER INH SCH (08:51)
[2023-06-26] MEDS: FAMOTIDINE 20 MG TAB PO SCH ×2 (08:51→20:51)
[2023-06-26] MEDS: POTASSIUM CHLORIDE CRTAB 20 MEQ TABCR PO SCH (08:51)
[2023-06-26] MEDS: GABAPENTIN 100 MG CAP PO SCH ×3 (08:51→20:51)
[2023-06-26] MEDS: FOLIC ACID 1 MG TAB PO SCH (08:51)
[2023-06-26] MEDS: METOPROLOL SUCC 25MG EXT REL TAB PO SCH ×2 (08:51→20:51)
[2023-06-26] MEDS ORDERED: THIAMINE HCL 200 MG in SYRINGE 9 ML IV SCH (09:00)
[2023-06-26 09:30] LABS: Thyroid Stimulating Hormone 6.517 uIu/ml (0.300-4.500)
--- NOTE | 2023-06-26 13:30 | Hospitalist Progress Note ---
Date of Service June 26, 2023 Assessment & Plan (1) Acute encephalopathy: Plan: Patient has been altered since admission. He has not improved on this front despite supportive care. Altered MS could be from lingering etoh withdrawal vs Wernicke's vs sepsis vs subacute CVA vs other vs combination of factors. CT head 06/19/23 without acute findings. In light of CXR findings today (?Pneumonia) and lactic acidosis consider early sepsis causing his altered MS today. VBG obtained - borderline pH with mildly elevated pCO2 but not severe enough to cause his current condition. Ammonia level wnl. TSH only mildly high. Placing on IV antibiotics (broad-spectrum) to cover the lungs and left foot in the event he has brewing sepsis. Recheck lactate later tonight. Will also obtain MRI brain to r/o subacute CVA causing his altered MS. Continue olanzapine at HS. (2) Pneumonia: Plan: Tachypnea on exam today. ?pneumonia on cxr. Certainly at risk of pneumonia given numerous comorbidities. Since he has been hospitalized for 7+ days will cover gram negatives etc. Start zosyn IV after blood cx's have been obtained. Add zyvox for MRSA coverage as his MRSA screen is +. The above antibiotics will also cover the left foot. (3) Elevated lactic acid level: Plan: 2nd to early sepsis ? Repeat level later this evening. Blood cx's obtained; broad-spectrum IV abx started. (4) Fall: Plan: Prior to presentation. Fortunately no major injuries from this fall. Thought to have been 2nd to recent etoh use. By report he was found down with 12+ beer cans surrounding him on the floor. Can't rule out other causes of his fall - subacute CVA, etc. PT, OT when able. Of note - CPK on 06/19 was wnl. (5) Alcohol abuse: Plan: Known h/o alcoholism with heavy drinking just prior to admission. Is at least 7+ days out from his last etoh beverage. Can't rule out lingering etoh withdrawal/DTs. Thiamine level returned low - certainly could have Wernicke's. Replace. Of note - he did receive high-dose IV thiamine earlier in the stay. Increase ongoing replacement to 200mg BID. Cont gabapentin 100mg TID (home dosing). Cont folic acid supplementation. (6) Acute hyponatremia: Plan: Severe. Na level 118 at admission. Now 133 today. BMP am. (7) CHF (congestive heart failure): Plan: Most recent echo on 05/12/2023 revealed LVEF of 25-30%, elevated RVSP at 4050mmHg; mild to moderate gay valvular regurgitation No evidence of decompensation at this time Remains on metoprolol succinate 25mg BID ISAIAS on hold due to mild AZRA (8) Abnormal LFTs: Plan: Presumed 2nd to etoh use Repeat LFTs am (9) T2DM (type 2 diabetes mellitus): Plan: Last A1c 7.4% on 05/06/2023 Glucose 143 on arrival Pharmacy is providing glycemic oversight BSG ACHS T2DM diet Cont basal-bolus regimen (10) Elevated troponin: Plan: Troponin 67.2-->63.4 on arrival No chest pain, no signs of ACS Likely 2nd to myocardial demand ischemia in the setting of his fall, etc. (11) PAF (paroxysmal atrial fibrillation): Plan: EKG on arrival showed A-fib with RVR Continue metoprolol succ 25mg BID Continue apixaban 5mg BID Rates remain acceptable (12) HTN (hypertension): Plan: BPs acceptable at this time (13) HLD (hyperlipidemia): Plan: Continue atorvastatin (14) COPD (chronic obstructive pulmonary disease): Plan: Continue home inhalers as needed No evidence of exacerbation at this time (15) Hypothyroidism: Plan: Continue levothyroxine TSH mildly elevated last 2 checks - increase synthroid to 75mcg daily (16) GERD (gastroesophageal reflux disease): Plan: Continue famotidine (17) CAD (coronary atherosclerotic disease): Plan: Hx of cardiac cath on 02/22/23 - Summary: 1. Moderate nonobstructive multivessel coronary artery disease 30% heavily calcified distal left main by IVUS 40-50% heavily calcified ostial circumflex by IVUS (nonobstructive by IFR 0.95). 30% mid LAD in-stent restenosis (nonobstructive by IFR 0.95). Jailed D2 60 to 70% ostial 2. Normal intracardiac filling pressure Medical management advised at that time Continue metoprolol, atorvastatin, Plavix (18) Anemia: Plan: H/H remain acceptable at this time (19) Urine retention: Plan: Perez catheter placed at time of admission continue such (20) PAD (peripheral artery disease): Plan: Eschar noted on left 1st toe; no signs of osteomyelitis on x-ray. LLE Arterial ultrasound with severe diffuse atherosclerotic change with occlusion of the peroneal and posterior tibial arteries. There is minimal flow seen within the anterior tibial artery with no flow seen in dorsalis pedis artery Dr Ace Moreno saw patient in consult earlier in the stay - arteriogram possibly at some point during this stay recommended but options for re- vascularization are very limited Can't rule out that L foot findings could be contributing to early sepsis?? serial exams Plan left message for Dorie Monday, sister, on her voicemail this evening Admission and Anticipated Discharge Date Admission Date: June 19, 2023 Subjective tele overnight - a.fib, rates <100 per nursing has been eating/drinking decently however, remains very confused is 2+ assist to get up from bed to commode has had multiple BMs overnight and today during the visit he was breathing rapidly he was severely altered - could not even open his eyes the only thing he did purposefully was move his arm to push me away while I was examining him the nurse who has been caring for him today was also his nurse yesterday and states that today he is similar from a mental status standpoint Review of Systems Review of Systems: Unobtainable due to cognitive status Physical Exam Physical Exam: gen - looks ill, tachypneic, lethargic, does not open his eyes to commands eyes - PERRL but pupils small, about 1-2mm in size; he did not track at all during the visit; eyes stayed in midline/fixed position; no nystagmus; mild ptosis L lid mouth - MM dry neck - no JVD heart - irregularly irregular, s1 s2 lungs - tachypneic, no retractions however; crackles b/l bases; no wheeze abd - soft NT ND BS+ ext - no edema, cool to touch - b/l feet vascular - left popliteal - not palpable, 0 pulse; DP and pos tib pulses b/l feet <1+ at best; cap refill 3+ seconds b/l feet worse on left skin - areas of scattered eschar on left foot but no open ulcer or area of cellulitis; no malodor neuro - no obvious facial droop; moved both arms symmetrically and spontaneously Results & Data Results & Data Vital Signs (Past 12 Hours) Vital Signs Temp Pulse Resp BP Pulse Ox O2 Del Method 06/26/23 12:11 36.5 C 87 18 130/88 97 Room Air 06/26/23 07:11 36.4 C L 83 17 146/89 H 95 Room Air Laboratory Results Laboratory Results - last 24 hr 06/25/23 06/26/23 06/26/23 20:26 05:32 07:12 WBC 7.35 RBC 4.73 Hgb 14.0 Hct 41.6 L MCV 87.9 MCH 29.6 MCHC 33.7 RDW Std Deviation 57.1 H RDW Coeff of Cole 18.1 H Plt Count 178 MPV 11.5 VBG pH VBG pCO2 VBG pO2 VBG HCO3 VBG O2 Saturation VBG Base Excess Sodium 133 L Potassium 4.8 Chloride 100 Carbon Dioxide 24 Anion Gap 9 BUN 29 H Creatinine 1.49 H D Est Cr Clr Drug Dosing 43.4 Est GFR ( Amer) 53.6 Est GFR (Non-Af Amer) 46.2 BUN/Creatinine Ratio 19.5 Glucose 144 H POC Glucose 132 H 130 H Lactate Calcium 8.7 Ammonia C-Reactive Protein B-Natriuretic Peptide 4223 H TSH Nasal Screen MRSA (PCR) 06/26/23 06/26/23 06/26/23 08:48 11:29 15:07 WBC RBC Hgb Hct MCV MCH MCHC RDW Std Deviation RDW Coeff of Cole Plt Count MPV VBG pH 7.35 L VBG pCO2 51 H VBG pO2 24 VBG HCO3 28 VBG O2 Saturation < 60.0 VBG Base Excess 1.7 Sodium Potassium Chloride Carbon Dioxide Anion Gap BUN Creatinine Est Cr Clr Drug Dosing Est GFR ( Amer) Est GFR (Non-Af Amer) BUN/Creatinine Ratio Glucose POC Glucose 140 H Lactate 2.6 H* Calcium Ammonia 17.0 L C-Reactive Protein 1.69 H B-Natriuretic Peptide TSH 6.517 H Nasal Screen MRSA (PCR) 06/26/23 06/26/23 15:55 16:17 WBC RBC Hgb Hct MCV MCH MCHC RDW Std Deviation RDW Coeff of Cole Plt Count MPV VBG pH VBG pCO2 VBG pO2 VBG HCO3 VBG O2 Saturation VBG Base Excess Sodium Potassium Chloride Carbon Dioxide Anion Gap BUN Creatinine Est Cr Clr Drug Dosing Est GFR ( Amer) Est GFR (Non-Af Amer) BUN/Creatinine Ratio Glucose POC Glucose 135 H Lactate Calcium Ammonia C-Reactive Protein B-Natriuretic Peptide TSH Nasal Screen MRSA (PCR) Positive A Diagnostic Findings Chest X-Ray 06/26/23 13:28 XR chest 1V portable CLINICAL HISTORY: L basilar rales; pneumonia? COMPARISON STUDY: Chest radiograph June 09, 2023. Chest CT June 19, 2023. FINDINGS: There is no pneumothorax. Small bilateral pleural effusions are noted. Moderate cardiomegaly is unchanged. There is mild interstitial thickening. Right lower lung airspace opacities have developed. There are possible left lower lung airspace opacities. IMPRESSION: 1. Cardiomegaly with mild interstitial pulmonary edema and small bilateral pleural effusions. 2. Interval development of the right basilar opacity. Possible left basilar opacities. The findings could reflect pneumonia, atelectasis or pulmonary edema. ACT 112: Negative or not required by law. Electronically signed by: Ameya Henriquez M.D. 06/26/2023 1:54 PM PG Care Time/CCT Total # of Minutes Spent Total Time Spent with Patient: Total time spent is greater than 50% in coordination of care (as documented) at patient's floor/unit and/or counseling patient: Coding Level of Care Code 20408 SUB INP/OBS CARE 3/50MIN Diagnoses Acute encephalopathy G93.40 Pneumonia J18.9 Elevated lactic acid level R79.89 Fall W19.XXXA Alcohol abuse F10.10 Acute hyponatremia E87.1 CHF (congestive heart failure) I50.9 Abnormal LFTs R79.89 T2DM (type 2 diabetes mellitus) E11.9 Elevated troponin R77.8 PAF (paroxysmal atrial fibrillation) I48.0 HTN (hypertension) I10 HLD (hyperlipidemia) E78.5 COPD (chronic obstructive pulmonary disease) J44.9 Hypothyroidism E03.9 GERD (gastroesophageal reflux disease) K21.9 CAD (coronary atherosclerotic disease) I25.10 Anemia D64.9 Urine retention R33.9 PAD (peripheral artery disease) I73.9
--- NOTE | 2023-06-26 13:55 | XRay Report ---
XR chest 1V portable CLINICAL HISTORY: L basilar rales; pneumonia? COMPARISON STUDY: Chest radiograph June 09, 2023. Chest CT June 19, 2023. FINDINGS: There is no pneumothorax. Small bilateral pleural effusions are noted. Moderate cardiomegal y is unchanged. There is mild interstitial thickening. Right lower lung airspace opacities have devel oped. There are possible left lower lung airspace opacities. IMPRESSION: 1. Cardiomegaly with mild interstitial pulmonary edema and small bilateral pleural effusions. 2. Interval development of the right basilar opacity. Possible left basilar opacities. The findings c ould reflect pneumonia, atelectasis or pulmonary edema. ACT 112: Negative or not required by law. Electronically signed by: Ameya Henriquez M.D. 06/26/2023 1:54 PM
--- NOTE | 2023-06-26 14:02 | Pharmacy Report ---
Pharmacy Glycemic Short Note 2 - Date of Service June 26, 2023 - Glycemic Short BSG Results (Last 24 hours): 06/25/23 06/25/23 06/26/23 15:50 20:26 05:32 Glucose 144 H POC Glucose 146 H 132 H 06/26/23 06/26/23 07:12 11:29 Glucose POC Glucose 130 H 140 H OUTPATIENT ANTIDIABETIC REGIMEN: * Insulin glargine 10 units daily * Farxiga 10 mg daily * A1c 7.4% 05/06/23 ASSESSMENT: 06/26/23: * BSGs have been reasonably well-controlled * Patient did experience hypoglycemia yesterday at lunchtime * Novolog parameters are very loose, basal insulin discontinued yesterday and I think this is reasonable * Reassess fasting BSG tomorrow for possible addition of low-dose Lantus 06/22 * Stressors stable * AM fasting BSG below goal despite only 5 units of Lantus yesterday. Will hold Lantus today and resume tomorrow, but only if AM fasting BSG >120 mg/dL * No CHO ratio ordered, which likely remains reasonable. However, will add VERY loose CHO ratio, not to provide significant insulin coverage, but to ensure CHO are counted/documented to determine if additional changes need to be made 06/21 * Patient admitted 06/19 with fall in the setting of alcohol use, hyponatremia, patient also has a history of CHF and type II diabetes * Consulted this AM after fasting on lab 30 mg/dL- patient had been receiving 7 units BID of lantus, held this mornings dose, will scale PM 0/5 units * Carb ratio removed by hospitalist, lunch BSG 112 mg/dl- will monitor need to resume PLAN FOR INPATIENT GLYCEMIC CONTROL: * Hold outpatient oral diabetes medications * Basal insulin * hold * Bolus insulin * NovoLog per scale ACHS or Q6hrs while NPO * Goal Range: Low 110 mg/dL - High 140 mg/dL * Correction Factor: 55 mg/dL/unit * Nutritional / Prandial insulin per carb ratio of 1 unit per 50 grams CHO consumed
[2023-06-26 15:06] LABS: C Reactive Protein 1.69 mg/dl (0-0.5)
[2023-06-26 15:17] LABS: Base Excess VBG 1.7 mEq/L; HCO3 VBG 28 mmol/L; Oxygen Saturation VBG < 60.0 %; PCO2 VBG 51 mmHg (38-50); PO2 VBG 24 mmHg; pH VBG 7.35 (7.36-7.41)
[2023-06-26] MEDS ORDERED: PIPERACILLIN/TAZOBACTAM 4.5 GM in DEXTROSE 5% MINI-B 100 ML IV SCH (15:30)
[2023-06-26] MEDS ORDERED: PIPER/TAZO 4.5g in D5W MINI-B 100 ML IV ONE (16:00)
[2023-06-26] MEDS: LINEZOLID 600 MG/300 ML BAG IV SCH (18:31)
[2023-06-26] MEDS: OLANZapine 5 MG TABLET PO SCH (20:52)
[2023-06-26] MEDS: PIPERACILLIN/TAZOBACTAM 4.5 GM in DEXTROSE 5% MINI-B 100 ML IV SCH (21:29)
[2023-06-27] MEDS: LINEZOLID 600 MG/300 ML BAG IV SCH ×2 (05:25→18:04)
[2023-06-27] MEDS: PIPERACILLIN/TAZOBACTAM 4.5 GM in DEXTROSE 5% MINI-B 100 ML IV SCH ×3 (06:19→22:32)
[2023-06-27] MEDS: LEVOTHYROXINE SODIUM 75 MCG TABLET PO SCH (06:21)
[2023-06-27 07:57] LABS: Hematocrit (blood only) 39.2 % (42.0-52.0); Hemoglobin 13.2 g/dl (14.0-18.0); Mean Corpuscular Hemoglobin 29.9 pg (25.0-34.0); Mean Corpuscular Hgb Conc 33.7 g/dL (32.0-36.0); Mean Corpuscular Volume 88.7 fL (80.0-100.0); Mean Platelet Volume 11.5 fL (9.4-12.4); Platelet Count 158 K/uL (130-400); RDW Coefficient of Variation 18.4 % (11.5-14.5); RDW Standard Deviation 58.9 fL (36.4-46.3); Red Blood Count 4.42 M/uL (4.70-6.10); White Blood Count 8.46 K/ul (4.8-10.8)
[2023-06-27 08:19] LABS: Albumin Globulin Ratio 1.2 (0.9-2); Albumin Level 3.2 gm/dl (3.4-5.0); BUN Creatinine Ratio 18.2 (10-20); Bilirubin,Total 1.3 mg/dl (0.2-1.0); Calcium 8.4 mg/dl (8.6-10.3); Creatinine Clr Calc Pharmacy 48.9 ml/min; Est GFR (Non-African American) 53.5 ml/min; Globulin 2.7 gm/dl (2.5-4.0); Potassium 4.6 mmol/L (3.5-5.1); Total Protein 5.9 gm/dl (6.0-8.3)
[2023-06-27] MEDS: FLUTICASONE/VILANTEROL 200/25MCG 14 PUFFS/INHALER INH SCH (08:49)
[2023-06-27] MEDS: CLOPIDOGREL BISULFATE 75 MG TAB PO SCH (08:49)
[2023-06-27] MEDS: GABAPENTIN 100 MG CAP PO SCH ×3 (08:49→21:00)
[2023-06-27] MEDS: APIXABAN 5 MG TABLET PO SCH ×2 (08:50→21:00)
[2023-06-27] MEDS: FOLIC ACID 1 MG TAB PO SCH (08:50)
[2023-06-27] MEDS: METOPROLOL SUCC 25MG EXT REL TAB PO SCH ×2 (08:50→21:00)
[2023-06-27] MEDS: ATORVASTATIN 40 MG TAB PO SCH (08:50)
[2023-06-27] MEDS: POTASSIUM CHLORIDE CRTAB 20 MEQ TABCR PO SCH (08:50)
[2023-06-27] MEDS: FAMOTIDINE 20 MG TAB PO SCH ×2 (08:50→21:00)
[2023-06-27] MEDS: CLOTRIMAZOLE 1% CR 15 GM TUBE EXT SCH ×2 (08:51→21:00)
[2023-06-27] MEDS: INSULIN ASPART PER UNIT CHARGE SC SCH ×4 (08:51→21:03)
[2023-06-27] MEDS: THIAMINE HCL 200 MG in SODIUM CHLORIDE 0.9% 50 ML IV SCH ×2 (08:52→21:00)
[2023-06-27] MEDS: ACETAMINOPHEN 325 MG TAB PO PRN (08:56)
[2023-06-27] MEDS ORDERED: FUROSEMIDE 40 MG/4 ML VIAL IV ONE (12:52)
--- NOTE | 2023-06-27 12:52 | Hospitalist Progress Note ---
Date of Service June 27, 2023 Assessment & Plan (1) Acute encephalopathy: Plan: IMPROVED today. Patient had been altered since admission. Altered MS could have been from lingering etoh withdrawal vs Wernicke's vs sepsis vs subacute CVA vs other vs combination of factors. CT head 06/19/23 without acute findings. MRI brain pending. Continue olanzapine at HS. (2) Pneumonia: Plan: suspected. 06/26/23 cxr with findings concerning for pneumonia. Day #2 of zosyn IV. Day #2 of zyvox for MRSA coverage as his MRSA screen is +. The above antibiotics will also cover the left foot. (3) Elevated lactic acid level: Plan: as seen on 06/26/23 2nd to early sepsis ? Blood cx's thus far negative. He overall looks better clinically today. (4) Fall: Plan: Prior to presentation. Fortunately no major injuries from this fall. Thought to have been 2nd to recent etoh use. By report he was found down with 12+ beer cans surrounding him on the floor. Can't rule out other causes of his fall - subacute CVA, etc. PT, OT when able. Of note - CPK on 06/19 was wnl. MRI brain pending. (5) Alcohol abuse: Plan: Known h/o alcoholism with heavy drinking just prior to admission. Is at least 7+ days out from his last etoh beverage. Can't rule out lingering etoh withdrawal/DTs. Thiamine level returned low - certainly could have Wernicke's. Replace. Of note - he did receive high-dose IV thiamine earlier in the stay. Cont thiamine 200mg BID. Cont gabapentin 100mg TID (home dosing). Cont folic acid supplementation. (6) Acute hyponatremia: Plan: Severe. Na level 118 at admission. Again Na level stable today. BMP am. (7) CHF (congestive heart failure): Plan: Most recent echo on 05/12/2023 revealed LVEF of 25-30%, elevated RVSP at 4050mmHg; mild to moderate gay valvular regurgitation mild JVD today, cxr 06/26/23 with edema, and has crackles on exam. give lasix 40mg IV x 1 reassess response tomorrow cont metoprolol succinate 25mg BID ISAIAS on hold due to mild AZRA (8) Abnormal LFTs: Plan: Presumed 2nd to etoh use Can't rule out passive congestion from CHF (9) T2DM (type 2 diabetes mellitus): Plan: Last A1c 7.4% on 05/06/2023 Glucose 143 on arrival Pharmacy is providing glycemic oversight BSG ACHS T2DM diet Cont basal-bolus regimen (10) Elevated troponin: Plan: Troponin 67.2-->63.4 on arrival No chest pain, no signs of ACS Likely 2nd to myocardial demand ischemia in the setting of his fall, etc. (11) PAF (paroxysmal atrial fibrillation): Plan: EKG on arrival showed A-fib with RVR Continue metoprolol succ 25mg BID Continue apixaban 5mg BID Rates remain acceptable at this time (12) HTN (hypertension): Plan: BPs acceptable at this time (13) HLD (hyperlipidemia): Plan: Continue atorvastatin (14) COPD (chronic obstructive pulmonary disease): Plan: Continue home inhalers as needed No evidence of exacerbation at this time (15) Hypothyroidism: Plan: Continue levothyroxine TSH mildly elevated last 2 checks thus increase synthroid to 75mcg daily (16) GERD (gastroesophageal reflux disease): Plan: Continue famotidine (17) CAD (coronary atherosclerotic disease): Plan: Hx of cardiac cath on 02/22/23 - Summary: 1. Moderate nonobstructive multivessel coronary artery disease 30% heavily calcified distal left main by IVUS 40-50% heavily calcified ostial circumflex by IVUS (nonobstructive by IFR 0.95). 30% mid LAD in-stent restenosis (nonobstructive by IFR 0.95). Jailed D2 60 to 70% ostial 2. Normal intracardiac filling pressure Medical management advised at that time Continue metoprolol, atorvastatin, Plavix (18) Anemia: Plan: H/H remain acceptable (19) Urine retention: Plan: Perez catheter placed at time of admission continue such (20) PAD (peripheral artery disease): Plan: Eschar noted on left 1st toe; no signs of osteomyelitis on x-ray. LLE Arterial ultrasound with severe diffuse atherosclerotic change with occlusion of the peroneal and posterior tibial arteries. There is minimal flow seen within the anterior tibial artery with no flow seen in dorsalis pedis artery Dr Ace Moreno saw patient in consult earlier in the stay - arteriogram possibly at some point during this stay recommended but options for re- vascularization are very limited Can't rule out that L foot findings could be contributing to early sepsis?? Dr Moreno saw Mr Davis again today -- arteriogram still desired during this hospitalization but will hold off for now given all of the other active medical problems Plan left message for Dorie Monday, sister, on her voicemail 06/26/23 tried to contact Ajay Davis at # listed in chart - no success attempted to call pt's daughter in law at a phone # supplied by our social work team - no answer as well will attempt to call family again tomorrow Admission and Anticipated Discharge Date Admission Date: June 19, 2023 Subjective patient more awake & alert today nursing flowsheets show he is eating nearly 100% of meals he was surprisingly very oriented - knew it was June 2023, and knew he was in [facility] he admitted to etoh consumption prior to admission but would not volunteer how much was consumed when I told him he likely had gone through etoh withdrawal he didn't believe such denied any specific complaints today denied pain including any pain in his feet no dyspnea at rest Review of Systems Review of Systems: gen - no fevers or chills cv - no chest pain GI - no abd pain or N/V musculo - c/o low back pain - chronic Physical Exam Physical Exam: gen - looks better today, more awake/alert/oriented, making better eye contact today mouth - MMM neck - mild JVD present heart - irregularly irregular, s1 s2, no murmur lungs - crackles b/l bases, no wheeze, no increased work of breathing abd - soft NT ND BS+ ext - no edema, cool to touch b/l feet vascular - DP and pos tib pulses b/l feet 0-1+ at best; cap refill 3+ seconds b/l feet worse on left skin - areas of scattered eschar on left great toe but no open ulcer or area of cellulitis Results & Data Results & Data Vital Signs (Past 12 Hours) Vital Signs Temp Pulse Pulse Resp BP Pulse Ox O2 Del Method 06/27/23 10:45 Room Air 06/27/23 10:37 36.4 C L 87 15 111/81 96 Room Air 06/27/23 07:44 93 H 06/27/23 07:14 36.4 C L 91 H 15 114/83 96 Room Air 06/27/23 03:30 37.5 C 98 H 18 131/81 94 Room Air Laboratory Results Laboratory Results - last 24 hr 06/27/23 06/27/23 06/27/23 07:13 07:18 11:27 WBC 8.46 RBC 4.42 L Hgb 13.2 L Hct 39.2 L MCV 88.7 MCH 29.9 MCHC 33.7 RDW Std Deviation 58.9 H RDW Coeff of Cole 18.4 H Plt Count 158 MPV 11.5 Sodium 133 L Potassium 4.6 Chloride 100 Carbon Dioxide 25 Anion Gap 8 BUN 24 H Creatinine 1.32 Est Cr Clr Drug Dosing 48.9 Est GFR ( Amer) 62.0 Est GFR (Non-Af Amer) 53.5 BUN/Creatinine Ratio 18.2 Glucose 158 H POC Glucose 124 H 160 H Calcium 8.4 L Total Bilirubin 1.3 H AST 21 ALT 16 Alkaline Phosphatase 110 H Total Protein 5.9 L Albumin 3.2 L Globulin 2.7 Albumin/Globulin Ratio 1.2 06/27/23 06/27/23 16:30 19:59 WBC RBC Hgb Hct MCV MCH MCHC RDW Std Deviation RDW Coeff of Cole Plt Count MPV Sodium Potassium Chloride Carbon Dioxide Anion Gap BUN Creatinine Est Cr Clr Drug Dosing Est GFR ( Amer) Est GFR (Non-Af Amer) BUN/Creatinine Ratio Glucose POC Glucose 160 H 171 H Calcium Total Bilirubin AST ALT Alkaline Phosphatase Total Protein Albumin Globulin Albumin/Globulin Ratio PG Care Time/CCT Total # of Minutes Spent Total Time Spent with Patient: Total time spent is greater than 50% in coordination of care (as documented) at patient's floor/unit and/or counseling patient: Coding Level of Care Code 30998 SUB INP/OBS CARE 3/50MIN Diagnoses Acute encephalopathy G93.40 Pneumonia J18.9 Elevated lactic acid level R79.89 Fall W19.XXXA Alcohol abuse F10.10 Acute hyponatremia E87.1 CHF (congestive heart failure) I50.9 Abnormal LFTs R79.89 T2DM (type 2 diabetes mellitus) E11.9 Elevated troponin R77.8 PAF (paroxysmal atrial fibrillation) I48.0 HTN (hypertension) I10 HLD (hyperlipidemia) E78.5 COPD (chronic obstructive pulmonary disease) J44.9 Hypothyroidism E03.9 GERD (gastroesophageal reflux disease) K21.9 CAD (coronary atherosclerotic disease) I25.10 Anemia D64.9 Urine retention R33.9 PAD (peripheral artery disease) I73.9
--- NOTE | 2023-06-27 15:48 | Fluoroscopy Report ---
MODIFIED BARIUM SWALLOW CLINICAL HISTORY: r/o aspiration COMPARISON STUDY: None. FLUOROSCOPY TIME: 2.41 minutes. Ka, r: 14.4 mGy. TECHNIQUE: A modified barium swallow was performed in conjunction with Speech Pathology. The patient ingested varying consistencies of barium containing material. Video fluoroscopy was performed. FINDINGS: There were multiple episodes of a small amount of silent tracheal aspiration with thin liqu ids and nectar thick liquids. No tracheal aspiration was identified with pudding or crackers in puddi ng consistency. Small amount of residuals were noted within the vallecula. IMPRESSION: 1. Multiple episodes of a small amount of silent tracheal aspiration with thin liquids and nectar thi ck liquids. No aspiration with pudding or crackers in pudding consistency. 2. Full recommendations by Speech pathology to follow. ACT 112: Negative or not required by law. Electronically signed by: Ameya Henriquez M.D. 06/27/2023 3:47 PM
[2023-06-27] MEDS: OLANZapine 5 MG TABLET PO SCH (21:00)
--- NOTE | 2023-06-28 03:25 | Magnetic Resonance Report ---
Exam(s): MRI HEAD Without Contrast EXAM: MR Head Without Intravenous Contrast CLINICAL HISTORY: Reason for exam: altered MS, alcohol abuse; eval CVA. TECHNIQUE: Magnetic resonance images of the head/brain without intravenous contrast in multiple planes. COMPARISON: Comparison made to prior head CT from June 19, 2023. FINDINGS: Brain: There is a remote lacunar infarct of the left capsule. There is a remote ischemic injury of the right cerebellum. There is a remote ischemic injury of the right insular cortex. Mild nonspecific white matter changes. The flow voids at the base of the brain are intact. No mass. No hemorrhage. No acute infarct. Ventricles: Moderate ventriculomegaly. Bones/joints: Unremarkable. No acute fracture. Sinuses: Chronic ethmoid sinusitis. No acute sinusitis. Mastoid air cells: Unremarkable as visualized. No mastoid effusion. Orbits: Bilateral lens replacements. IMPRESSION: No evidence of acute intracranial pathology. Electronically signed by: Jordyn Cameron MD 06/28/23 03:24 AM
[2023-06-28] MEDS: LINEZOLID 600 MG/300 ML BAG IV SCH ×2 (05:26→17:20)
[2023-06-28] MEDS: PIPERACILLIN/TAZOBACTAM 4.5 GM in DEXTROSE 5% MINI-B 100 ML IV SCH ×3 (05:29→22:20)
[2023-06-28] MEDS: LEVOTHYROXINE SODIUM 75 MCG TABLET PO SCH (05:30)
[2023-06-28] MEDS: ACETAMINOPHEN 325 MG TAB PO PRN ×2 (06:31→21:22)
[2023-06-28] MEDS ORDERED: HYDROCODONE/ACETAMINOPHEN 7.5/325MG TAB PO PRN (07:57)
[2023-06-28 08:31] LABS: Basophils # (auto) 0.06 K/uL (0.00-0.20); Basophils % (auto) 0.8 %; Eosinophils # (auto) 0.36 K/uL (0.00-0.50); Eosinophils % (auto) 4.9 %; Hematocrit (blood only) 35.9 % (42.0-52.0); Hemoglobin 11.9 g/dl (14.0-18.0); Immature Granulocytes # (auto) 0.02 K/uL (0.01-0.20); Immature Granulocytes % (auto) 0.3 %; Lymphocytes # (auto) 1.23 K/uL (1.20-3.40); Lymphocytes % (auto) 16.6 %; Mean Corpuscular Hemoglobin 29.4 pg (25.0-34.0); Mean Corpuscular Hgb Conc 33.1 g/dL (32.0-36.0); Mean Corpuscular Volume 88.6 fL (80.0-100.0); Mean Platelet Volume 11.7 fL (9.4-12.4); Monocytes # (auto) 0.91 K/uL (0.11-0.59); Monocytes % (auto) 12.3 %; Neutrophils # (auto) 4.82 K/uL (1.40-6.50); Neutrophils % (auto) 65.1 %; Platelet Count 162 K/uL (130-400); RDW Coefficient of Variation 18.4 % (11.5-14.5); RDW Standard Deviation 59.5 fL (36.4-46.3); Red Blood Count 4.05 M/uL (4.70-6.10)
[2023-06-28 08:40] LABS: BUN Creatinine Ratio 17.2 (10-20); Calcium 7.9 mg/dl (8.6-10.3); Creatinine Clr Calc Pharmacy 48.2 ml/min; Est GFR (African American) 55.4 ml/min; Est GFR (Non-African American) 47.8 ml/min; Magnesium 1.8 mg/dl (1.7-2.4); Potassium 3.9 mmol/L (3.5-5.1)
[2023-06-28] MEDS ORDERED: LANTUS PER UNIT CHARGE SC ONE (09:00)
[2023-06-28] MEDS: FLUTICASONE/VILANTEROL 200/25MCG 14 PUFFS/INHALER INH SCH (10:01)
[2023-06-28] MEDS: CLOTRIMAZOLE 1% CR 15 GM TUBE EXT SCH ×2 (10:01→21:02)
[2023-06-28] MEDS: ATORVASTATIN 40 MG TAB PO SCH (10:02)
[2023-06-28] MEDS: METOPROLOL SUCC 25MG EXT REL TAB PO SCH ×2 (10:02→21:04)
[2023-06-28] MEDS: FOLIC ACID 1 MG TAB PO SCH (10:02)
[2023-06-28] MEDS: POTASSIUM CHLORIDE CRTAB 20 MEQ TABCR PO SCH (10:02)
[2023-06-28] MEDS: FAMOTIDINE 20 MG TAB PO SCH ×2 (10:02→21:03)
[2023-06-28] MEDS: GABAPENTIN 100 MG CAP PO SCH ×3 (10:03→21:03)
[2023-06-28] MEDS: CLOPIDOGREL BISULFATE 75 MG TAB PO SCH (10:03)
[2023-06-28] MEDS: APIXABAN 5 MG TABLET PO SCH ×2 (10:03→21:02)
--- NOTE | 2023-06-28 10:19 | Vascular Medicine ProgressNote ---
Date of Service June 28, 2023 Assessment & Plan (1) PAD (peripheral artery disease): Plan: --status post LLE endovascular intervention 09/2021 2. HFrEF EF 25% 3. CAD post prior PCI to LAD 4. Type 2 diabetes 5. Paroxysmal A-fib 6. COPD 7. Hyponatremia 8. Alcohol abuse 9. Anemia 10. AZRA Patient has critical lower limb ischemia in the setting of complex below the knee PAD. Previously underwent angioplasty to distal popliteal and TPT 09/2021 but at comp letion of procedure still had occlusion of distal tibial vessels with only collateral flow to foot. Repeat ultrasound this admission suggests some progression of popliteal disease. Tentatively plan on angiogram later this afternoon. Please keep NPO. Received Eliquis today. Initial angiogram via LT radial. Attempt LT pedal access. Admission and Anticipated Discharge Date Admission Date: June 19, 2023 Subjective Sitting up in chair. Seems more alert today. Reports sharp pain in feet bilaterally that comes periodically. Review of Systems Review of Systems: Unobtainable due to reduced consciousness Physical Exam Physical Exam: General: Awake Cooperative. Oriented to years. Intermittent confusion HEENT: Sclera anicteric Lungs: Clear to auscultation with few crackles at base Cardiac: Irregularly irregular. Normal rate. no murmurs Extremities/vascular: --Both feet with red/warm, sluggish capi llary refill. --Radial 2+ bilaterally --Femoral 1+ bilaterally. Nonpalpable popliteal pulse --DP/PT diminished bilaterally --Left heel pressure ulcer healed Several small (<0.5 cm) areas of black eschar over first. Neurologic: Diminished sensation in feet to light touch Results & Data Vital Signs (Past 12 Hours) Vital Signs Temp Pulse Resp BP Pulse Ox O2 Del Method 06/28/23 09:13 97.5 F L 94 H 18 111/69 93 Room Air 06/28/23 03:27 98.1 F 79 20 137/82 94 Room Air PG Care Time/CCT Total # of Minutes Spent Total Time Spent with Patient: Total time spent is greater than 50% in coordination of care (as documented) at patient's floor/unit and/or counseling patient: Coding Level of Care Code 61200 SUB INP/OBS CARE 3/50MIN Diagnoses PAD (peripheral artery disease) I73.9
[2023-06-28] MEDS: THIAMINE HCL 200 MG in SODIUM CHLORIDE 0.9% 50 ML IV SCH ×2 (10:24→21:56)
[2023-06-28] MEDS: INSULIN ASPART PER UNIT CHARGE SC SCH ×4 (10:25→21:21)
--- NOTE | 2023-06-28 11:24 | Pharmacy Report ---
Pharmacy Glycemic Short Note 2 - Date of Service June 28, 2023 - Glycemic Short BSG Results (Last 24 hours): 06/27/23 06/27/23 06/27/23 11:27 16:30 19:59 Glucose POC Glucose 160 H 160 H 171 H 06/28/23 06/28/23 07:08 08:08 Glucose 200 H POC Glucose 159 H OUTPATIENT ANTIDIABETIC REGIMEN: * Lantus 10 units SC daily * Farxiga 10 mg PO daily * HbA1c: 7.4% (05/06/23) ASSESSMENT: 06/28: * Mr. Davis received 6 units of insulin yesterday, all bolus. BSGs were [phone] mg/dL. * After 48 hours of no basal insulin, patient's fasting BSG has climbed to 159 mg/dL this AM. I do believe the patient requires some degree of basal insulin. Therefore, will order 3 units of Lantus for this morning x 1 dose. Hoping this reduced dose of basal will not cause hypoglycemia. Continue with previously ordered loose Novolog scale. * Remains on Zosyn and Zyvox. Ate breakfast this morning but is now NPO for a possible angiogram this afternoon. Will monitor closely. 06/26: * BSGs have been reasonably well-controlled * Patient did experience hypoglycemia yesterday at lunchtime * Novolog parameters are very loose, basal insulin discontinued yesterday and I think this is reasonable * Reassess fasting BSG tomorrow for possible addition of low-dose Lantus 06/22: * Stressors stable * AM fasting BSG below goal despite only 5 units of Lantus yesterday. Will hold Lantus today and resume tomorrow, but only if AM fasting BSG >120 mg/dL * No CHO ratio ordered, which likely remains reasonable. However, will add VERY loose CHO ratio, not to provide significant insulin coverage, but to ensure CHO are counted/documented to determine if additional changes need to be made 06/21: * Patient admitted 06/19 with fall in the setting of alcohol use, hyponatremia, patient also has a history of CHF and type II diabetes * Consulted this AM after fasting on lab 30 mg/dL- patient had been receiving 7 units BID of lantus, held this mornings dose, will scale PM 0/5 units * Carb ratio removed by hospitalist, lunch BSG 112 mg/dl- will monitor need to resume PLAN FOR INPATIENT GLYCEMIC CONTROL: * Hold outpatient oral diabetes medications * Basal insulin * Lantus 3 units SC x 1 this AM * Bolus insulin * NovoLog per scale ACHS or Q6hrs while NPO * Goal Range: Low 120 mg/dL - High 150 mg/dL * Correction Factor: 55 mg/dL/unit * Nutritional / Prandial insulin per carb ratio of 1 unit per 50 grams CHO consumed
[2023-06-28] MEDS ORDERED: FUROSEMIDE 40 MG/4 ML VIAL IV ONE (12:10)
--- NOTE | 2023-06-28 12:11 | Hospitalist Progress Note ---
Date of Service June 28, 2023 Assessment & Plan (1) Acute encephalopathy: Plan: Waxing/waning his entire stay. Yesterday was very awake/alert and talkative and had appropriate orientation. Today - very confused, staring ahead, not talking. He had just received a dose of norco about 1-2 hours prior - thus, today's mental status may have been from the norco (Toxic effects). Patient has had altered mental status from the time of admission on 06/19. Altered MS earlier in the stay - etoh withdrawal vs Wernicke's vs sepsis vs subacute CVA vs other vs combination of factors. CT head 06/19/23 without acute findings. MRI brain yesterday --> multiple OLD strokes but no new strokes. He has large ventricles. Certainly the prior CVAs, etc is a set-up for hospital delirium. STOP the norco - definitely made him altered. Continue olanzapine at HS. (2) Pneumonia: Plan: suspected. 06/26/23 cxr with findings concerning for pneumonia. Day #3 of zosyn IV. Day #3 of zyvox for MRSA coverage as his MRSA screen is +. Change zyvox from IV to PO (Bioequivalent). The above antibiotics will also cover the left foot. (3) Elevated lactic acid level: Plan: as seen on 06/26/23 2nd to early sepsis ? Blood cx's thus far negative. (4) Fall: Plan: Prior to presentation. Fortunately no major injuries from this fall. Thought to have been 2nd to recent etoh use. By report he was found down with 12+ beer cans surrounding him on the floor. Can't rule out other causes of his fall - subacute CVA, etc. PT, OT when able. Of note - CPK on 06/19 was wnl. MRI brain w/o ICH. (5) Alcohol abuse: Plan: Known h/o alcoholism with heavy drinking just prior to admission. Is at least 10+ days out from his last etoh beverage. Withdrawal likely resolved; has not needed ativan in numerous days (06/22 last dose?). Thiamine level returned low - certainly could have Wernicke's. Replace. Of note - he did receive high-dose IV thiamine earlier in the stay. Cont thiamine 200mg BID. Cont gabapentin 100mg TID (home dosing). Cont folic acid supplementation. (6) Acute hyponatremia: Plan: Severe. Na level 118 at admission. Resolved. Again Na level stable today. BMP am. (7) CHF (congestive heart failure): Plan: Most recent echo on 05/12/2023 revealed LVEF of 25-30%, elevated RVSP at 4050mmHg; mild to moderate gay valvular regurgitation mild JVD today, cxr 06/26/23 with edema, and has crackles on exam. give lasix 40mg IV x 1 once again today reassess response tomorrow cont metoprolol succinate 25mg BID ISAIAS on hold due to mild AZRA (8) Abnormal LFTs: Plan: Presumed 2nd to etoh use Can't rule out passive congestion from CHF Recent ammonia level wnl (9) T2DM (type 2 diabetes mellitus): Plan: Last A1c 7.4% on 05/06/2023 Glucose 143 on arrival Pharmacy is providing glycemic oversight BSG ACHS T2DM diet Cont basal-bolus regimen (10) Elevated troponin: Plan: Troponin 67.2-->63.4 on arrival No chest pain, no signs of ACS Likely 2nd to myocardial demand ischemia in the setting of his fall, etc. (11) PAF (paroxysmal atrial fibrillation): Plan: EKG on arrival showed A-fib with RVR Continue metoprolol succ 25mg BID Continue apixaban 5mg BID Rates remain acceptable at this time (12) HTN (hypertension): Plan: BPs acceptable at this time (13) HLD (hyperlipidemia): Plan: Continue atorvastatin (14) COPD (chronic obstructive pulmonary disease): Plan: Continue home inhalers as needed No evidence of exacerbation at this time (15) Hypothyroidism: Plan: Continue levothyroxine TSH mildly elevated last 2 checks thus increase synthroid to 75mcg daily (16) GERD (gastroesophageal reflux disease): Plan: Continue famotidine (17) CAD (coronary atherosclerotic disease): Plan: Hx of cardiac cath on 02/22/23 - Summary: 1. Moderate nonobstructive multivessel coronary artery disease 30% heavily calcified distal left main by IVUS 40-50% heavily calcified ostial circumflex by IVUS (nonobstructive by IFR 0.95). 30% mid LAD in-stent restenosis (nonobstructive by IFR 0.95). Jailed D2 60 to 70% ostial 2. Normal intracardiac filling pressure Medical management advised at that time Continue metoprolol, atorvastatin, Plavix (18) Anemia: Plan: H/H remain acceptable (19) Urine retention: Plan: Perez catheter placed at time of admission continue such (20) PAD (peripheral artery disease): Plan: s/p arteriogram today by Dr Moreno -- see his full procedure report SEVERE PAD of both legs with compromised flow below the knees b/l Dr Moreno does not feel intervention could be attempted at [facility] he would need tertiary care center for such I discussed this his sister by phone this evening Cont statin Cont plavix Plan left message for Dorie Monday, sister, on her voicemail 06/26/23 finally did connect with Ms Monday today, 06/28 -- extensive, lengthy update given to Ms Monday with current problems, plan of care, potential need for intervention of b/l leg PAD, etc earlier in the week tried to contact Ajay Davis at # listed in chart - no success attempted to call pt's daughter in law at a phone # supplied by our social work team - no answer as well Admission and Anticipated Discharge Date Admission Date: June 19, 2023 Subjective was called by nursing that patient was having severe right foot pain norco ordered and a dose was given I saw the patient 2-3 hours later and he was significantly altered presumably from the norco he would respond to his name and had his eyes open but he was unable to provide much in the way of history or ROS tele overnight - a.fib, rates <100 continues to eat well per nursing flowsheets later in the day underwent LE arteriogram by Dr Moreno from cardiology who knows him well Review of Systems Review of Systems: Unobtainable due to cognitive status Physical Exam Physical Exam: gen - sitting in chair, VERY CONFUSED - staring at the TV, not answering questions, only spoke 1-2 words; no distress however mouth - MMM neck - mild JVD present heart - irregularly irregular, s1 s2, no murmur lungs - crackles b/l bases L>R, decreased BS R base, no wheeze, no increased work of breathing abd - soft NT ND BS+ ext - no edema, cool to touch b/l feet - unchanged vascular - DP and pos tib pulses b/l feet 0-1+ at best; cap refill 3+ seconds b/l feet worse on left skin - areas of scattered eschar on left great toe but no open ulcer or area of cellulitis Results & Data Results & Data Vital Signs (Past 12 Hours) Vital Signs Temp Pulse Resp BP BP Pulse Ox O2 Del Method 06/28/23 10:45 36.4 C L 94 H 16 123/77 96 Room Air 06/28/23 09:13 36.4 C L 94 H 18 111/69 93 Room Air 06/28/23 03:27 36.7 C 79 20 137/82 94 Room Air Laboratory Results Laboratory Results - last 24 hr 06/28/23 06/28/23 06/28/23 08:08 11:23 17:13 WBC 7.40 RBC 4.05 L Hgb 11.9 L Hct 35.9 L MCV 88.6 MCH 29.4 MCHC 33.1 RDW Std Deviation 59.5 H RDW Coeff of Cole 18.4 H Plt Count 162 MPV 11.7 Immature Gran % (Auto) 0.3 Neut % (Auto) 65.1 Lymph % (Auto) 16.6 Emmons % (Auto) 12.3 Eos % (Auto) 4.9 Baso % (Auto) 0.8 Neut # (Auto) 4.82 Lymph # (Auto) 1.23 Emmons # (Auto) 0.91 H Eos # (Auto) 0.36 Baso # (Auto) 0.06 Immature Gran # (Auto) 0.02 Sodium 134 L Potassium 3.9 Chloride 100 Carbon Dioxide 27 Anion Gap 7 BUN 25 H Creatinine 1.45 H Est Cr Clr Drug Dosing 48.2 Est GFR ( Amer) 55.4 Est GFR (Non-Af Amer) 47.8 BUN/Creatinine Ratio 17.2 Glucose 200 H POC Glucose 190 H 116 H Calcium 7.9 L Magnesium 1.8 06/28/23 06/29/23 19:50 07:21 WBC RBC Hgb Hct MCV MCH MCHC RDW Std Deviation RDW Coeff of Cole Plt Count MPV Immature Gran % (Auto) Neut % (Auto) Lymph % (Auto) Emmons % (Auto) Eos % (Auto) Baso % (Auto) Neut # (Auto) Lymph # (Auto) Emmons # (Auto) Eos # (Auto) Baso # (Auto) Immature Gran # (Auto) Sodium Potassium Chloride Carbon Dioxide Anion Gap BUN Creatinine Est Cr Clr Drug Dosing Est GFR ( Amer) Est GFR (Non-Af Amer) BUN/Creatinine Ratio Glucose POC Glucose 159 H 108 H Calcium Magnesium Diagnostic Findings Chest X-Ray 06/28/23 07:57 XR chest 2V PA/lateral HISTORY: 73 years-old Male ?CHF vs pneumonia acute shortness of breath COMPARISON: 06/26/2023 TECHNIQUE: PA and lateral views of the chest FINDINGS: Cardiac megaly with mild pulmonary edema, small pleural effusions and mild left basilar prominent opacities redemonstrated. No pneumothorax. Degenerative changes of the shoulders and spine. IMPRESSION: 1. Cardiomegaly with unchanged mild pulmonary edema. 2. Small pleural effusions with mild left basilar opacities may represent atelectasis versus pneumonia. ACT 112: Negative or not required by law. The above report was generated using voice recognition software. It may contain grammatical, syntax or spelling errors. Electronically signed by: Gino Wagner M.D. 06/28/2023 12:14 PM MRI brain - FINDINGS: Brain: There is a remote lacunar infarct of the left capsule. There is a remote ischemic injury of the right cerebellum. There is a remote ischemic injury of the right insular cortex. Mild nonspecific white matter changes. The flow voids at the base of the brain are intact. No mass. No hemorrhage. No acute infarct. Ventricles: Moderate ventriculomegaly. Bones/joints: Unremarkable. No acute fracture. Sinuses: Chronic ethmoid sinusitis. No acute sinusitis. Mastoid air cells: Unremarkable as visualized. No mastoid effusion. Orbits: Bilateral lens replacements. IMPRESSION: No evidence of acute intracranial pathology. PG Care Time/CCT Total # of Minutes Spent Total Time Spent with Patient: Total time spent is greater than 50% in coordination of care (as documented) at patient's floor/unit and/or counseling patient: Coding Level of Care Code 43369 SUB INP/OBS CARE 3/50MIN Diagnoses Acute encephalopathy G93.40 Pneumonia J18.9 Elevated lactic acid level R79.89 Fall W19.XXXA Alcohol abuse F10.10 Acute hyponatremia E87.1 CHF (congestive heart failure) I50.9 Abnormal LFTs R79.89 T2DM (type 2 diabetes mellitus) E11.9 Elevated troponin R77.8 PAF (paroxysmal atrial fibrillation) I48.0 HTN (hypertension) I10 HLD (hyperlipidemia) E78.5 COPD (chronic obstructive pulmonary disease) J44.9 Hypothyroidism E03.9 GERD (gastroesophageal reflux disease) K21.9 CAD (coronary atherosclerotic disease) I25.10 Anemia D64.9 Urine retention R33.9 PAD (peripheral artery disease) I73.9
--- NOTE | 2023-06-28 12:15 | XRay Report ---
XR chest 2V PA/lateral HISTORY: 73 years-old Male ?CHF vs pneumonia acute shortness of breath COMPARISON: 06/26/2023 TECHNIQUE: PA and lateral views of the chest FINDINGS: Cardiac megaly with mild pulmonary edema, small pleural effusions and mild left basilar prominent opa cities redemonstrated. No pneumothorax. Degenerative changes of the shoulders and spine. IMPRESSION: 1. Cardiomegaly with unchanged mild pulmonary edema. 2. Small pleural effusions with mild left basilar opacities may represent atelectasis versus pneumoni a. ACT 112: Negative or not required by law. The above report was generated using voice recognition software. It may contain grammatical, syntax o r spelling errors. Electronically signed by: Gino Wagner M.D. 06/28/2023 12:14 PM
[2023-06-28] MEDS ORDERED: HEPARIN (PORCINE) 1000 UNIT/ML 10 ML (CATH LAB USE ONLY) ONE (14:55)
[2023-06-28] MEDS ORDERED: MIDAZOLAM HCL 1 MG/ML 2ML VIAL ONE (14:55)
[2023-06-28] MEDS ORDERED: fentaNYL citrate PF 100 MCG/2 ML VIAL ONE (14:55)
[2023-06-28] MEDS ORDERED: niCARdipine HCL INJ 2.5 MG/ML 10 ML AMP ONE (14:55)
[2023-06-28] MEDS ORDERED: NITROGLYCERIN/D5W 100MCG/ML 20ML SYR ONE (14:57)
--- NOTE | 2023-06-28 16:45 | Pre Anesthesia Assessment ---
Date of Service June 28, 2023 Pre Sedation Assessment Vital Signs Temp Pulse Resp BP BP Pulse Ox O2 Del Method 06/28/23 10:45 97.5 F L 94 H 16 123/77 96 Room Air 06/28/23 09:13 97.5 F L 94 H 18 111/69 93 Room Air 06/28/23 03:27 98.1 F 79 20 137/82 94 Room Air 06/27/23 21:00 Room Air 06/27/23 20:00 98.4 F 84 18 126/87 97 Room Air Cardiovascular + regular rate Respiratory + respiratory effort normal Pre-Sedation Airway Assessment Smoking Status: Former smoker Hx Sleep Apnea: No (unknown) Hx Difficult Intubation: No Short, Thick Neck: No Thyromental Distance: > or= 3.5 Finger Breadths Oral Cavity: + Dental Abnormalities Mallampati Class: III ASA: ASA4 NPO Status Date of Last Intake of Fluids: 06/27/23 Time of Last Intake of Fluids: 21:00 Date of Last Intake of Solid Food: 06/27/23 Time of Last Intake of Solid Foods: 18:00 Procedure Planning Contraindications for Sedation: none Current Medications Reviewed: Yes Notes The planned sedation has been discussed with the patient. Informed Consent was obtained. I have identified the patient, determined the appropriateness of sedation and have assessed the patient immediately prior to the procedure. All medicine(s) and interventions are by my order.
--- NOTE | 2023-06-28 16:48 | Post Anesthesia Assessment ---
Date of Service June 28, 2023 Post Sedation Assessment Vital Signs Temp Pulse Resp BP BP Pulse Ox O2 Del Method 06/28/23 10:45 97.5 F L 94 H 16 123/77 96 Room Air 06/28/23 09:13 97.5 F L 94 H 18 111/69 93 Room Air 06/28/23 03:27 98.1 F 79 20 137/82 94 Room Air 06/27/23 21:00 Room Air 06/27/23 20:00 98.4 F 84 18 126/87 97 Room Air Recovery Score Activity: Moves 4 extremities Respiration: Deep Breath/Cough Circulation: +/-20% PreAnes Value Consciousness: Fully Awake Oxygen Saturation: O2 needed for >90% Discharge Sedation Level of Care: Fast Track Phase II Post Sedation Plan On clinical assessment, the patient appears to have tolerated the sedation without complications. Patient is recovering as anticipated. Patient will continue to be monitored by nursing and may be discharged when sedation discharge criteria are met per below protocol. Upon Completions of procedure up to 15 minutes continue every 5 minute vital signs and the P.A.R. score; then discharge to a Phase I or Fast Track to Phase II per the following guidelines: * Discharge Patient to appropriate Phase II area if PAR is 8 or greater or return to pre- procedure baseline. The post - procedure orders will be as directed. * If PAR score is less than 8 or not return to pre-procedure baseline then patient will follow Phase I monitoring till PAR is reached for Phase II. The Phase I may be done in procedure room or may call to secure a Phase I area. * If naloxone or flumazenil are used for reversal, hold in Phase I for continued monitoring from when last reversal dose was given for a minimum of 60 minutes or longer pending the nurse and/or physician discretion of patient condition before discharge to Phase II. Please call the Sedation Physician to re-evaluate and complete post-note for discharge to Phase II area. Do NOT discharge from procedure sedation or Phase 1 until post- sedation evaluation note is complete by procedure /sedation MD Sedation Discharge Instructions to be given to the patient at discharge to home.
--- NOTE | 2023-06-28 17:01 | Endovascular Procedure Note ---
[facility] Endovascular Procedure Rpt Pre & Post Diagnosis Peripheral arterial disease I identified the patient and participated in the time-out.: No Procedure Operation Date: 06/28/23 15:00 Actual Procedures p Angiogram Extremity Bilateral - Ace Moreno MD Surgeon Ace Moreno MD [employer] Captain Sebas Estimated Blood Loss 15 Findings See Below Abdominal aorta--no significant aneurysmal or stenotic disease Right lower extremity-- -Common iliac95% proximal stenosis External iliac, internal iliac widely patent -CFAheavily calcified, diffuse disease up to 70% Profunda widely patent -SFAheavily calcified, diffuse proximal to mid disease, distal 40-50% stenosis -Popliteal-- heavily calcified, 95% proximal stenosis -FIP823% proximal occlusion [id number]% distal occlusion -PTAreconstitute distally with very sluggish flow. Peroneal occluded Left lower extremity-- -Common iliac, external iliac, internal iliac widely patent -CFAheavily calcified, 50% disease (pullback gradient <10 mmHg). [id number]% mid occlusion -SFAheavily calcified, 50% mid, 40-50% distal stenosis -Poplitealcalcified, 100% mid stenosis -ATAoccluded -TPToccluded Peronealreconstitutes in distal segment, diffusely diseased and gives collaterals to ROSIBEL, [employer] -PTAreconstitutes at the level of the ankle -DPAreconstitutes proximally with mild diffuse disease and extends to the midfoot Medial plantar arterypatent to mid foot with diffuse disease Anesthesia Type RN Sedation Radiation Exposure (mGv) Radiation (mGy): 623 Contrast Contrast: 60 Complications none Disposition Accompanied Patient To Recovery: Yes Disposition: PCU Description of Procedure Left radial artery access obtained under ultrasound guidance Pigtail directed into ascending aorta Selective left lower extremity angiography via 0.18 seeker catheter placed into SFA No pullback gradient across INTERVIEWING CLERK, iliac disease. V18 wire redirected into right SFA 0.35 MPA catheter placed to right common iliac artery for selective angiography of right lower extremity Contrast used: 60 Moderate sedation: [id number] Access closure: TR band Summary: 1. Left lower extremity -- 50% INTERVIEWING CLERK. 50 mid/distal SFA. 100% mid popliteal o cclusion. Peroneal reconstitutes distally and gives off collaterals to DPA, plantar arteries. 2. Right lower extremity --95% proximal common iliac stenosis, 70% INTERVIEWING CLERK. 95% proximal popliteal. 100% occluded ROSIBEL, TPT. [employer] reconstitutes distally with minimal flow. Recommendations: Patient has complex multilevel disease with essentially occluded below the knee distal runoff vessels. Options for revascularization limited. Recommend evaluation by tertiary vascular surgery. I attest to the content of the Intraoperative Record and any orders documented therein. Any exceptions are noted below. Vascular Charges Angiography/Venography Procedure 1: Angiography/Venography charges: [id number] Aortography, abd + b/l iliofem LE, catheter, radiological S&I Procedure 2: Angiography/Venography charges: [id number] Initial 3rd order or selective abd, pelvic, or LE branch Additional Services Procedure 1: Additional Services Charges: 37266 Ultrasound guidance - vascular access Procedure 2: Additional Services Charges: 46498 Moderate sedation initial 15 min Procedure 3: Additional Services Charges: 24999 Moderate sedation, each additional 15 min
[2023-06-28] MEDS ORDERED: SODIUM CHLORIDE 0.9% 1,000 ML IV SCH (17:45)
[2023-06-28] MEDS: OLANZapine 5 MG TABLET PO SCH (21:06)
[2023-06-29] MEDS: PIPERACILLIN/TAZOBACTAM 4.5 GM in DEXTROSE 5% MINI-B 100 ML IV SCH ×2 (06:15→14:11)
[2023-06-29] MEDS: LEVOTHYROXINE SODIUM 75 MCG TABLET PO SCH (06:19)
[2023-06-29 08:17] LABS: Base Excess VBG 2.3 mEq/L; HCO3 VBG 29 mmol/L; Oxygen Saturation VBG < 60.0 %; PCO2 VBG 51 mmHg (38-50); PO2 VBG 28 mmHg; pH VBG 7.36 (7.36-7.41)
[2023-06-29 08:31] LABS: Hematocrit (blood only) 41.5 % (42.0-52.0); Mean Corpuscular Hemoglobin 29.5 pg (25.0-34.0); Mean Corpuscular Hgb Conc 33.7 g/dL (32.0-36.0); Mean Corpuscular Volume 87.4 fL (80.0-100.0); Mean Platelet Volume 11.3 fL (9.4-12.4); Platelet Count 174 K/uL (130-400); RDW Coefficient of Variation 18.6 % (11.5-14.5); RDW Standard Deviation 59.2 fL (36.4-46.3); Red Blood Count 4.75 M/uL (4.70-6.10); White Blood Count 6.81 K/ul (4.8-10.8)
[2023-06-29 08:47] LABS: BUN Creatinine Ratio 15.3 (10-20); Calcium 8.3 mg/dl (8.6-10.3); Creatinine Clr Calc Pharmacy 53.4 ml/min; Est GFR (African American) 62.6 ml/min; Magnesium 1.9 mg/dl (1.7-2.4); Potassium 3.6 mmol/L (3.5-5.1)
[2023-06-29] MEDS: INSULIN ASPART PER UNIT CHARGE SC SCH ×4 (09:36→20:14)
[2023-06-29] MEDS: OLANZAPINE 2.5 MG TAB PO SCH (09:39)
[2023-06-29] MEDS: LINEZOLID 600 MG TAB PO SCH ×2 (09:39→20:12)
[2023-06-29] MEDS: METOPROLOL SUCC 25MG EXT REL TAB PO SCH ×2 (09:40→20:20)
[2023-06-29] MEDS: GABAPENTIN 100 MG CAP PO SCH ×3 (09:41→20:11)
[2023-06-29] MEDS: POTASSIUM CHLORIDE CRTAB 20 MEQ TABCR PO SCH (09:41)
[2023-06-29] MEDS: ATORVASTATIN 40 MG TAB PO SCH (09:42)
[2023-06-29] MEDS: FOLIC ACID 1 MG TAB PO SCH (09:42)
[2023-06-29] MEDS: APIXABAN 5 MG TABLET PO SCH ×2 (09:42→20:10)
[2023-06-29] MEDS: FAMOTIDINE 20 MG TAB PO SCH ×2 (09:43→20:11)
[2023-06-29] MEDS: CLOPIDOGREL BISULFATE 75 MG TAB PO SCH (09:43)
[2023-06-29] MEDS: FLUTICASONE/VILANTEROL 200/25MCG 14 PUFFS/INHALER INH SCH (09:47)
[2023-06-29] MEDS: CLOTRIMAZOLE 1% CR 15 GM TUBE EXT SCH ×2 (09:48→20:15)
[2023-06-29] MEDS: THIAMINE HCL 200 MG in SODIUM CHLORIDE 0.9% 50 ML IV SCH (10:14)
[2023-06-29] MEDS: ACETAMINOPHEN 325 MG TAB PO PRN (10:53)
[2023-06-29] MEDS: LANTUS PER UNIT CHARGE SC SCH (13:04)
--- NOTE | 2023-06-29 17:35 | Hospitalist Progress Note ---
Date of Service June 29, 2023 Assessment & Plan (1) Acute encephalopathy: Plan: Ongoing. Waxing/waning his entire stay. Patient has had altered mental status from the time of admission on 06/19. Altered MS earlier in the stay - etoh withdrawal vs Wernicke's vs sepsis vs subacute CVA vs other vs combination of factors. CT head 06/19/23 without acute findings. 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 He has large ventricles as well c/w significant atrophy. Certainly the prior CVAs, etc is a set-up for hospital delirium. Continue olanzapine at HS. Added AM dose of olanzapine as well. (2) Pneumonia: Plan: suspected. 06/26/23 cxr with findings concerning for pneumonia. Day #4 of zosyn IV. Day #4 of zyvox for MRSA coverage as his MRSA screen is +. d/c zosyn, change to ceftin. cont zyvox. complete 7 days in total of abx. (3) Elevated lactic acid level: Plan: as seen on 06/26/23 2nd to early sepsis ? Blood cx's from 06/26/23 negative. (4) Fall: Plan: Prior to presentation. Fortunately no major injuries from this fall. Thought to have been 2nd to recent etoh use. By report he was found down with 12+ beer cans surrounding him on the floor. Can't rule out other causes of his fall - subacute CVA, etc. PT, OT when able. Of note - CPK on 06/19 was wnl. MRI brain w/o ICH. (5) Alcohol abuse: Plan: Known h/o alcoholism with heavy drinking just prior to admission. Is at least 10+ days out from his last etoh beverage. Withdrawal likely resolved; has not needed ativan in numerous days (06/22 last dose?). Thiamine level returned low - certainly could have Wernicke's. Replace. Of note - he did receive high-dose IV thiamine earlier in the stay. Cont thiamine 200mg BID. Cont gabapentin 100mg TID. Cont folic acid supplementation. (6) Acute hyponatremia: Plan: Severe. Na level 118 at admission. Resolved. BMP am. (7) CHF (congestive heart failure): Plan: Most recent echo on 05/12/2023 revealed LVEF of 25-30%, elevated RVSP at 4050mmHg; mild to moderate gay valvular regurgitation cont metoprolol succinate 25mg BID ISAIAS on hold due to recent AZRA resume lasix 40mg daily starting tomorrow am (8) Abnormal LFTs: Plan: Presumed 2nd to etoh use Can't rule out passive congestion from CHF Recent ammonia level wnl LFTs improved while here (9) T2DM (type 2 diabetes mellitus): Plan: Last A1c 7.4% on 05/06/2023 Glucose 143 on arrival Pharmacy is providing glycemic oversight BSG ACHS T2DM diet Cont basal-bolus regimen (10) Elevated troponin: Plan: Troponin 67.2-->63.4 on arrival No chest pain, no signs of ACS Likely 2nd to myocardial demand ischemia in the setting of his fall, etc. (11) PAF (paroxysmal atrial fibrillation): Plan: EKG on arrival showed A-fib with RVR Continue metoprolol succ 25mg BID Continue apixaban 5mg BID Rates remain acceptable (12) HTN (hypertension): Plan: BPs acceptable (13) HLD (hyperlipidemia): Plan: Continue atorvastatin (14) COPD (chronic obstructive pulmonary disease): Plan: Continue home inhalers as needed No evidence of exacerbation at this time (15) Hypothyroidism: Plan: Continue levothyroxine TSH mildly elevated last 2 checks thus increased synthroid to 75mcg daily (16) GERD (gastroesophageal reflux disease): Plan: Continue famotidine (17) CAD (coronary atherosclerotic disease): Plan: Hx of cardiac cath on 02/22/23 - Summary: 1. Moderate nonobstructive multivessel coronary artery disease 30% heavily calcified distal left main by IVUS 40-50% heavily calcified ostial circumflex by IVUS (nonobstructive by IFR 0.95). 30% mid LAD in-stent restenosis (nonobstructive by IFR 0.95). Jailed D2 60 to 70% ostial 2. Normal intracardiac filling pressure Medical management advised at that time Continue metoprolol, atorvastatin, Plavix (18) Anemia: Plan: H/H stable (19) Urine retention: Plan: [place] catheter placed at time of admission continue such consider voiding trial tomorrow as cordoba has been in place for 7+ days (20) PAD (peripheral artery disease): Plan: s/p arteriogram 06/28/[address] Moreno -- see his full procedure report SEVERE PAD of both legs with compromised flow below the knees b/l Dr Moreno does not feel intervention could be attempted at [facility] he would need tertiary care center for such I discussed this with his sister by phone PM of 06/28 Cont statin Cont plavix Will need referral to tertiary care center Plan left message for Dorie Monday, sister, on her voicemail 06/26/23 finally did connect with Ms Monday on 06/28 -- extensive, lengthy update given to Ms Monday with current problems, plan of care, potential need for intervention of b/l leg PAD, etc earlier in the week tried to contact Ajay Susan at # listed in chart - no success attempted to call pt's daughter in law at a phone # supplied by our social work team - no answer as well care d/w Dr Moreno this evening Admission and Anticipated Discharge Date Admission Date: June 19, 2023 Subjective tele overnight - a.fib; 1 episode of NSVT rates of a.fib <100 patient eating his meal during the visit he was confused, talking about "an air quality test" that was conducted this am in his room he denied all complaints - no dyspnea, no chest pain, no foot pain today Review of Systems Review of Systems: cv - ongoing edema of legs pulm - no cough GI - no nausea or vomiting Physical Exam Physical Exam: gen - sitting in chair, NAD, confused but much more talkative than yesterday mouth - MMM neck - no JVD at 90 degrees heart - irregularly irregular, s1 s2, no murmur lungs - crackles b/l bases - improved from yesterday; decreased BS R base, no wheeze, no increased work of breathing abd - soft NT ND BS+ ext - 1-2+ edema b/l, cool to touch b/l feet - unchanged vascular - DP and pos tib pulses b/l feet 0-1+; cap refill 3+ seconds b/l feet worse on left skin - areas of scattered eschar on left great toe but no open ulcer or area of cellulitis either foot Results & Data Results & Data Vital Signs (Past 12 Hours) Vital Signs Temp Pulse Pulse Resp BP BP Pulse Ox 06/29/23 15:41 95 H 06/29/23 15:33 36.4 C L 85 20 115/88 95 06/29/23 11:58 36.5 C 97 H 24 132/78 94 06/29/23 07:30 01/04/24 07:21 36.5 C 88 18 118/78 95 06/29/23 07:00 86 O2 Del Method 06/29/23 15:41 06/29/23 15:33 Room Air 06/29/23 11:58 Room Air 06/29/23 07:30 Room Air 06/29/23 07:21 Room Air 06/29/23 07:00 Laboratory Results Laboratory Results - last 24 hr 06/29/23 06/29/23 06/29/23 07:21 08:10 08:11 WBC 6.81 RBC 4.75 Hgb 14.0 Hct 41.5 L MCV 87.4 MCH 29.5 MCHC 33.7 RDW Std Deviation 59.2 H RDW Coeff of Cole 18.6 H Plt Count 174 MPV 11.3 VBG pH 7.36 VBG pCO2 51 H VBG pO2 28 VBG HCO3 29 VBG O2 Saturation < 60.0 VBG Base Excess 2.3 Sodium 136 Potassium 3.6 Chloride 100 Carbon Dioxide 27 Anion Gap 9 BUN 20 Creatinine 1.31 Est Cr Clr Drug Dosing 53.4 Est GFR ( Amer) 62.6 Est GFR (Non-Af Amer) 54.0 BUN/Creatinine Ratio 15.3 Glucose 163 H POC Glucose 108 H Calcium 8.3 L Magnesium 1.9 06/29/23 06/29/23 06/29/23 11:02 16:15 20:08 WBC RBC Hgb Hct MCV MCH MCHC RDW Std Deviation RDW Coeff of Cole Plt Count MPV VBG pH VBG pCO2 VBG pO2 VBG HCO3 VBG O2 Saturation VBG Base Excess Sodium Potassium Chloride Carbon Dioxide Anion Gap BUN Creatinine Est Cr Clr Drug Dosing Est GFR ( Amer) Est GFR (Non-Af Amer) BUN/Creatinine Ratio Glucose POC Glucose 159 H 186 H 145 H Calcium Magnesium PG Care Time/CCT Total # of Minutes Spent Total Time Spent with Patient: Total time spent is greater than 50% in coordination of care (as documented) at patient's floor/unit and/or counseling patient: Coding Level of Care Code 16009 SUB INP/OBS CARE 2/35MIN Diagnoses Acute encephalopathy G93.40 Pneumonia J18.9 Elevated lactic acid level R79.89 Fall W19.XXXA Alcohol abuse F10.10 Acute hyponatremia E87.1 CHF (congestive heart failure) I50.9 Abnormal LFTs R79.89 T2DM (type 2 diabetes mellitus) E11.9 Elevated troponin R77.8 PAF (paroxysmal atrial fibrillation) I48.0 HTN (hypertension) I10 HLD (hyperlipidemia) E78.5 COPD (chronic obstructive pulmonary disease) J44.9 Hypothyroidism E03.9 GERD (gastroesophageal reflux disease) K21.9 CAD (coronary atherosclerotic disease) I25.10 Anemia D64.9 Urine retention R33.9 PAD (peripheral artery disease) I73.9
[2023-06-29] MEDS: OLANZapine 5 MG TABLET PO SCH (20:13)
[2023-06-29] MEDS: cefUROXime axetil 500 MG TAB PO SCH (20:21)
[2023-06-29] MEDS: THIAMINE HCL 100 MG TAB PO SCH (20:22)
--- NOTE | 2023-06-29 21:03 | Vascular Medicine ProgressNote ---
Date of Service June 29, 2023 Assessment & Plan (1) PAD (peripheral artery disease): Plan: --status post LLE endovascular intervention 09/2021 2. HFrEF EF 25% 3. CAD post prior PCI to LAD 4. Type 2 diabetes 5. Persistentl A-fib 6. COPD 7. Hyponatremia 8. Alcohol abuse 9. Anemia 10. AZRA 11. NSVT Again confused today. Denies leg pain. No signs of active LE infection. No apparent access site complications. Repeat angiogram yesterday showed complex multilevel disease with occluded distal runoff vessels with collaterals. Options for revascularization limited. Unsure would be a surgical candidate in current state. Discussed with Dr. Fuentes possible transfer to tertiary center for vascular surgery evaluation vs outpatient evaluation. Decision pending clinical course. Continue current dual therapy with Eliquis, Clopidogrel. Increase metoprolol if additional NSVT. Admission and Anticipated Discharge Date Admission Date: June 19, 2023 Subjective Confused this morning. Up in chair. Denies any pain. States he has to do whatever needs to be done "to get my power back" so doesn't fall in future. Tele reviewed - remains in rate controlled AF. 1 episode of NSVT 13 beats. Another episode of slow NSVT. Review of Systems Review of Systems: All systems reviewed & are unremarkable except as noted in HPI & below Physical Exam Physical Exam: General: Awake Cooperative.Confused HEENT: Sclera anicteric Lungs: Clear to auscultation with few crackles at base Cardiac: Irregularly irregular. Normal rate. no murmurs Extremities/vascular: --Both feet with red/warm, sluggish capi llary refill. --LT radial pulse intact, minimal ecchym osis, no hematoma. --Femoral 1+ bilaterally. --DP/PT diminished bilaterally --Left heel pressure ulcer healed Several small (<0.5 cm) areas of black eschar over first. Neurologic: Diminished sensation in feet to light touch Results & Data Vital Signs (Past 12 Hours) Vital Signs Temp Pulse Pulse Resp BP BP Pulse Ox 06/29/23 20:17 95 H 138/86 06/29/23 19:08 98.1 F 83 19 145/85 H 96 06/29/23 17:55 06/29/23 15:41 95 H 06/29/23 15:33 97.5 F L 85 20 115/88 95 06/29/23 11:58 97.7 F 97 H 24 132/78 94 O2 Del Method 06/29/23 20:17 06/29/23 19:08 Room Air 06/29/23 17:55 Room Air 06/29/23 15:41 06/29/23 15:33 Room Air 06/29/23 11:58 Room Air PG Care Time/CCT Total # of Minutes Spent Total Time Spent with Patient: Total time spent is greater than 50% in coordination of care (as documented) at patient's floor/unit and/or counseling patient: Coding Level of Care Code 03304 SUB INP/OBS CARE 3/50MIN Diagnoses PAD (peripheral artery disease) I73.9
[2023-06-30] MEDS: LEVOTHYROXINE SODIUM 75 MCG TABLET PO SCH (05:19)
[2023-06-30 06:46] LABS: BUN Creatinine Ratio 15.9 (10-20); Calcium 8.2 mg/dl (8.6-10.3); Creatinine Clr Calc Pharmacy 48.4 ml/min; Est GFR (African American) 55.4 ml/min; Est GFR (Non-African American) 47.8 ml/min; Potassium 3.6 mmol/L (3.5-5.1)
[2023-06-30] MEDS: INSULIN ASPART PER UNIT CHARGE SC SCH ×4 (08:00→20:17)
[2023-06-30] MEDS: OLANZAPINE 2.5 MG TAB PO SCH (08:01)
[2023-06-30] MEDS: LINEZOLID 600 MG TAB PO SCH ×2 (08:01→20:07)
[2023-06-30] MEDS: FOLIC ACID 1 MG TAB PO SCH (08:01)
[2023-06-30] MEDS: ATORVASTATIN 40 MG TAB PO SCH (08:01)
[2023-06-30] MEDS: CLOPIDOGREL BISULFATE 75 MG TAB PO SCH (08:01)
[2023-06-30] MEDS: GABAPENTIN 100 MG CAP PO SCH ×3 (08:01→20:08)
[2023-06-30] MEDS: APIXABAN 5 MG TABLET PO SCH ×2 (08:02→20:09)
[2023-06-30] MEDS: THIAMINE HCL 100 MG TAB PO SCH ×2 (08:02→20:07)
[2023-06-30] MEDS: cefUROXime axetil 500 MG TAB PO SCH ×2 (08:02→20:09)
[2023-06-30] MEDS: FAMOTIDINE 20 MG TAB PO SCH ×2 (08:02→20:09)
[2023-06-30] MEDS: METOPROLOL SUCC 25MG EXT REL TAB PO SCH ×2 (08:02→20:08)
[2023-06-30] MEDS: FLUTICASONE/VILANTEROL 200/25MCG 14 PUFFS/INHALER INH SCH (08:03)
[2023-06-30] MEDS: POTASSIUM CHLORIDE CRTAB 20 MEQ TABCR PO SCH (08:03)
[2023-06-30] MEDS: LANTUS PER UNIT CHARGE SC SCH (08:04)
[2023-06-30] MEDS: CLOTRIMAZOLE 1% CR 15 GM TUBE EXT SCH ×2 (08:04→20:10)
[2023-06-30] MEDS: ACETAMINOPHEN 325 MG TAB PO PRN (08:10)
[2023-06-30] MEDS: FUROSEMIDE 40 MG TAB PO SCH (10:21)
--- NOTE | 2023-06-30 11:25 | Pharmacy Report ---
Pharmacy Glycemic Short Note 2 - Date of Service June 30, 2023 - Glycemic Short BSG Results (Last 24 hours): 06/29/23 06/29/23 06/30/23 16:15 20:08 05:56 Glucose 130 H POC Glucose 186 H 145 H 06/30/23 06/30/23 07:03 11:08 Glucose POC Glucose 121 H 175 H OUTPATIENT ANTIDIABETIC REGIMEN: * Lantus 10 units SC daily * Farxiga 10 mg PO daily * HbA1c: 7.4% (05/06/23) ASSESSMENT: 06/30: * Edi has been averaging around 6 units of insulin per day over the last 48 hours, 3 basal + 3 bolus. BSGs over this time have ranged from 108-190 mg/dL. * Fasting BSG of 121 mg/dL this AM is at goal. Abx have been changed to PO Cefuroxime and Linezolid. * No changes necessary to regimen. 06/28: * Mr. Davis received 6 units of insulin yesterday, all bolus. BSGs were 340-737-232-171 mg/dL. * After 48 hours of no basal insulin, patient's fasting BSG has climbed to 159 mg/dL this AM. I do believe the patient requires some degree of basal insulin. Therefore, will order 3 units of Lantus for this morning x 1 dose. Hoping this reduced dose of basal will not cause hypoglycemia. Continue with previously ordered loose Novolog scale. * Remains on Zosyn and Zyvox. Ate breakfast this morning but is now NPO for a possible angiogram this afternoon. Will monitor closely. 06/26: * BSGs have been reasonably well-controlled * Patient did experience hypoglycemia yesterday at lunchtime * Novolog parameters are very loose, basal insulin discontinued yesterday and I think this is reasonable * Reassess fasting BSG tomorrow for possible addition of low-dose Lantus 06/22: * Stressors stable * AM fasting BSG below goal despite only 5 units of Lantus yesterday. Will hold Lantus today and resume tomorrow, but only if AM fasting BSG >120 mg/dL * No CHO ratio ordered, which likely remains reasonable. However, will add VERY loose CHO ratio, not to provide significant insulin coverage, but to ensure CHO are counted/documented to determine if additional changes need to be made 06/21: * Patient admitted 06/19 with fall in the setting of alcohol use, hyponatremia, patient also has a history of CHF and type II diabetes * Consulted this AM after fasting on lab 30 mg/dL- patient had been receiving 7 units BID of lantus, held this mornings dose, will scale PM 0/5 units * Carb ratio removed by hospitalist, lunch BSG 112 mg/dl- will monitor need to resume PLAN FOR INPATIENT GLYCEMIC CONTROL: * Hold outpatient oral diabetes medications * Basal insulin * Lantus 3 units SC daily * Bolus insulin * NovoLog per scale ACHS or Q6hrs while NPO * Goal Range: Low 120 mg/dL - High 150 mg/dL * Correction Factor: 55 mg/dL/unit * Nutritional / Prandial insulin per carb ratio of 1 unit per 50 grams CHO consumed
--- NOTE | 2023-06-30 20:02 | Hospitalist Progress Note ---
Date of Service June 30, 2023 Assessment & Plan (1) Acute encephalopathy: Plan: Ongoing. Waxing/waning his entire stay. Patient has had altered mental status from the time of admission on 06/19. Altered MS earlier in the stay - etoh withdrawal vs Wernicke's vs sepsis vs subacute CVA vs other vs combination of factors. CT head 06/19/23 without acute findings. 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 He has large ventricles as well c/w significant atrophy. Certainly the prior CVAs, etc is a set-up for hospital delirium. Continue olanzapine at HS. Continue AM dose of olanzapine as well. (2) Thiamine deficiency: Plan: B1 level was 7 (8+normal). 2nd to etoh abuse. I am suspicious he has Wernicke's. Family reports he has had confusion for months. Confusion has been present entire admission. This is despite Rx of all medical issues. He continues to confabulate. He has received high dose thiamine earlier in the stay. Now on basal thiamine - 200mg BID. Continue such. (3) PAD (peripheral artery disease): Plan: s/p arteriogram 06/28/[address] Moreno -- see his full procedure report SEVERE PAD of both legs with compromised flow below the knees b/l Dr Moreno does not feel intervention could be attempted at [facility] he would need tertiary care center for such I discussed this with his sister by phone PM of 06/28 Cont statin Cont plavix Spoke with Dr Elida Carter, vascular surgery at [facility] this afternoon I had pushed his arteriogram images via PACS to [place] after lengthy discussion urgent or emergent Tx to [place] felt unnecessary we could refer to Dr Ventura locally OR to [facility] in [place] as outpatient (4) Pneumonia: Plan: suspected. 06/26/23 cxr with findings concerning for pneumonia. Completed 4 days of zosyn. Now on 3 days of ceftin. Completed 4 days of IV zyvox. Now on 3 days of PO zyvox. MRSA screen was +. Completed 7 days in total of Rx. pneumonia clinically resolved. (5) Elevated lactic acid level: Plan: as seen on 06/26/23 2nd to early sepsis ? Blood cx's from 06/26/23 negative. lactate was likely due to #4 can't rule out that it isn't from thiamine deficiency (6) Fall: Plan: Prior to presentation. Fortunately no major injuries from this fall. Thought to have been 2nd to recent etoh use. By report he was found down with 12+ beer cans surrounding him on the floor. Can't rule out other causes of his fall - subacute CVA, B1 def, alcohol-induced peripheral neuropathy, cerebellar atrophy from etoh abuse, etc. PT, OT Of note - CPK on 06/19 was wnl. MRI brain w/o ICH. (7) Alcohol abuse: Plan: Known h/o alcoholism with heavy drinking just prior to admission. Is at least 10+ days out from his last etoh beverage. Withdrawal likely resolved; has not needed ativan in numerous days (06/22 last dose?). Thiamine level returned low - certainly could have Wernicke's. Replace. Of note - he did receive high-dose IV thiamine earlier in the stay. Cont thiamine 200mg BID. Cont gabapentin 100mg TID. Cont folic acid supplementation. (8) Acute hyponatremia: Plan: Severe. Na level 118 at admission. Resolved. BMP am. (9) CHF (congestive heart failure): Plan: Most recent echo on 05/12/2023 revealed LVEF of 25-30%, elevated RVSP at 4050mmHg; mild to moderate gay valvular regurgitation cont metoprolol succinate 25mg BID ISAIAS on hold due to recent AZRA if Cr stable tomorrow resume ISAIAS cont lasix 40mg daily appears compensated today (10) Abnormal LFTs: Plan: Presumed 2nd to etoh use Can't rule out passive congestion from CHF Recent ammonia level wnl LFTs improved while here (11) T2DM (type 2 diabetes mellitus): Plan: Last A1c 7.4% on 05/06/2023 Glucose 143 on arrival Pharmacy is providing glycemic oversight BSG ACHS T2DM diet Cont basal-bolus regimen (12) Elevated troponin: Plan: Troponin 67.2-->63.4 on arrival No chest pain, no signs of ACS Likely 2nd to myocardial demand ischemia in the setting of his fall, etc. (13) PAF (paroxysmal atrial fibrillation): Plan: EKG on arrival showed A-fib with RVR Continue metoprolol succ 25mg BID Continue apixaban 5mg BID Rates remain acceptable (14) HTN (hypertension): Plan: BPs acceptable (15) HLD (hyperlipidemia): Plan: Continue atorvastatin (16) COPD (chronic obstructive pulmonary disease): Plan: Continue home inhalers as needed No evidence of exacerbation at this time (17) Hypothyroidism: Plan: Continue levothyroxine TSH mildly elevated last 2 checks thus increased synthroid to 75mcg daily (18) GERD (gastroesophageal reflux disease): Plan: Continue famotidine (19) CAD (coronary atherosclerotic disease): Plan: Hx of cardiac cath on 02/22/23 - Summary: 1. Moderate nonobstructive multivessel coronary artery disease 30% heavily calcified distal left main by IVUS 40-50% heavily calcified ostial circumflex by IVUS (nonobstructive by IFR 0.95). 30% mid LAD in-stent restenosis (nonobstructive by IFR 0.95). Jailed D2 60 to 70% ostial Medical management advised at that time Continue metoprolol, atorvastatin, Plavix (20) Anemia: Plan: H/H stable (21) Urine retention: Plan: Perez catheter placed at time of admission Has been removed and voiding spontaneously Plan left message for Dorie Monday, sister, on her voicemail 06/26/23 finally did connect with Monday on 06/28 -- extensive, lengthy update given to Ms Monday with current problems, plan of care, potential need for intervention of b/l leg PAD, etc earlier in the week tried to contact Ajay Davis at # listed in chart - no success attempted to call pt's daughter in law at a phone # supplied by our social work team - no answer as well Spoke with Henna Davis, daughter in law, by phone this evening ([phone]) - 06/30/23 extensive update given Henna provided her 's cell #; 's name - Ajay ([phone]) - will call hime tomorrow care d/w [facility] extensively by phone Admission and Anticipated Discharge Date Admission Date: June 19, 2023 Subjective staff report ongoing confusion, confabulation, etc tele - a.fib, most rates < 100 BPM during the visit he was resting in bed when we were talking he expressed disbelieve in most things that I was saying (how he got here, circumstances of his admission, etc) we talked about his PAD and his feet - told him I had spoken with vascular surgery at [facility]; no need for urgent or emergent Tx to [place] we discussed rehab - he promptly said "I'm going home" Review of Systems Review of Systems: cv - denied chest pain pulm - no dyspnea at rest GI - no abd pain gen - nursing flowsheets show he is eating well Physical Exam Physical Exam: gen - laying in bed, NAD, confused and confabulating mouth - MMM neck - no JVD at 90 degrees heart - irregularly irregular, s1 s2, no murmur lungs - residual crackles L base, decreased BS R base, o/w CTA b/l abd - soft NT ND BS+ ext - 1+ edema b/l, cool to touch b/l feet - unchanged vascular - DP and pos tib pulses b/l feet <1+; cap refill 3-4 seconds b/l feet worse on left skin - areas of scattered eschar on left great toe but no open ulcer or area of cellulitis either foot Results & Data Results & Data Vital Signs (Past 12 Hours) Vital Signs Temp Pulse Pulse Resp BP Pulse Ox O2 Del Method 06/30/23 19:29 36.5 C 104 H 18 148/89 H 97 Room Air 06/30/23 16:16 36.5 C 77 18 138/86 98 Room Air 06/30/23 15:25 61 06/30/23 11:27 36.5 C 90 16 143/90 H 96 Room Air 06/30/23 08:45 Room Air Laboratory Results Laboratory Results - last 24 hr 06/29/23 06/30/23 06/30/23 20:08 05:56 07:03 Sodium 136 Potassium 3.6 Chloride 103 Carbon Dioxide 24 Anion Gap 9 BUN 23 Creatinine 1.45 H Est Cr Clr Drug Dosing 48.4 Est GFR ( Amer) 55.4 Est GFR (Non-Af Amer) 47.8 BUN/Creatinine Ratio 15.9 Glucose 130 H POC Glucose 145 H 121 H Calcium 8.2 L 06/30/23 06/30/23 11:08 16:18 Sodium Potassium Chloride Carbon Dioxide Anion Gap BUN Creatinine Est Cr Clr Drug Dosing Est GFR ( Amer) Est GFR (Non-Af Amer) BUN/Creatinine Ratio Glucose POC Glucose 175 H 113 H Calcium PG Care Time/CCT Total # of Minutes Spent Total Time Spent with Patient: Total time spent is greater than 50% in coordination of care (as documented) at patient's floor/unit and/or counseling patient: Coding Level of Care Code 23638 SUB INP/OBS CARE 350MIN Diagnoses Acute encephalopathy G93.40 Thiamine deficiency E51.9 PAD (peripheral artery disease) I73.9 Pneumonia J18.9 Elevated lactic acid level R79.89 Fall W19.XXXA Alcohol abuse F10.10 Acute hyponatremia E87.1 CHF (congestive heart failure) I50.9 Abnormal LFTs R79.89 T2DM (type 2 diabetes mellitus) E11.9 Elevated troponin R77.8 PAF (paroxysmal atrial fibrillation) I48.0 HTN (hypertension) I10 HLD (hyperlipidemia) E78.5 COPD (chronic obstructive pulmonary disease) J44.9 Hypothyroidism E03.9 GERD (gastroesophageal reflux disease) K21.9 CAD (coronary atherosclerotic disease) I25.10 Anemia D64.9 Urine retention R33.9
[2023-06-30] MEDS: OLANZapine 5 MG TABLET PO SCH (20:10)
[2023-07-01] MEDS: LEVOTHYROXINE SODIUM 75 MCG TABLET PO SCH (06:15)
[2023-07-01 07:44] LABS: BUN Creatinine Ratio 14.5 (10-20); Calcium 8.2 mg/dl (8.6-10.3); Est GFR (African American) 55.4 ml/min; Est GFR (Non-African American) 47.8 ml/min; Potassium 3.4 mmol/L (3.5-5.1)
[2023-07-01] MEDS: CLOTRIMAZOLE 1% CR 15 GM TUBE EXT SCH ×2 (08:11→20:37)
[2023-07-01] MEDS: APIXABAN 5 MG TABLET PO SCH ×2 (08:11→20:34)
[2023-07-01] MEDS: cefUROXime axetil 500 MG TAB PO SCH ×2 (08:11→20:35)
[2023-07-01] MEDS: POTASSIUM CHLORIDE CRTAB 20 MEQ TABCR PO SCH (08:12)
[2023-07-01] MEDS: CLOPIDOGREL BISULFATE 75 MG TAB PO SCH (08:12)
[2023-07-01] MEDS: ATORVASTATIN 40 MG TAB PO SCH (08:12)
[2023-07-01] MEDS: GABAPENTIN 100 MG CAP PO SCH ×3 (08:12→20:36)
[2023-07-01] MEDS: OLANZAPINE 2.5 MG TAB PO SCH (08:12)
[2023-07-01] MEDS: FOLIC ACID 1 MG TAB PO SCH (08:13)
[2023-07-01] MEDS: THIAMINE HCL 100 MG TAB PO SCH ×2 (08:13→20:37)
[2023-07-01] MEDS: METOPROLOL SUCC 25MG EXT REL TAB PO SCH ×2 (08:13→20:35)
[2023-07-01] MEDS: FUROSEMIDE 40 MG TAB PO SCH (08:13)
[2023-07-01] MEDS: FAMOTIDINE 20 MG TAB PO SCH ×2 (08:13→20:35)
[2023-07-01] MEDS: LINEZOLID 600 MG TAB PO SCH ×2 (08:13→20:35)
[2023-07-01] MEDS: LANTUS PER UNIT CHARGE SC SCH (08:14)
[2023-07-01] MEDS: INSULIN ASPART PER UNIT CHARGE SC SCH ×4 (08:14→20:42)
[2023-07-01] MEDS: FLUTICASONE/VILANTEROL 200/25MCG 14 PUFFS/INHALER INH SCH (09:49)
[2023-07-01] MEDS: ENALAPRIL MALEATE 10 MG TAB PO SCH (12:20)
[2023-07-01] MEDS: OLANZapine 5 MG TABLET PO SCH (20:34)
[2023-07-02] MEDS: ACETAMINOPHEN 325 MG TAB PO PRN (00:55)
[2023-07-02] MEDS: LEVOTHYROXINE SODIUM 75 MCG TABLET PO SCH (06:27)
[2023-07-02] MEDS: OLANZAPINE 2.5 MG TAB PO SCH (08:16)
[2023-07-02] MEDS: FAMOTIDINE 20 MG TAB PO SCH ×2 (08:16→20:08)
[2023-07-02] MEDS: METOPROLOL SUCC 25MG EXT REL TAB PO SCH ×2 (08:16→20:08)
[2023-07-02] MEDS: FUROSEMIDE 40 MG TAB PO SCH (08:16)
[2023-07-02] MEDS: THIAMINE HCL 100 MG TAB PO SCH ×2 (08:16→20:09)
[2023-07-02] MEDS: GABAPENTIN 100 MG CAP PO SCH ×3 (08:17→20:09)
[2023-07-02] MEDS: ENALAPRIL MALEATE 10 MG TAB PO SCH (08:17)
[2023-07-02] MEDS: APIXABAN 5 MG TABLET PO SCH ×2 (08:17→20:08)
[2023-07-02] MEDS: FOLIC ACID 1 MG TAB PO SCH (08:17)
[2023-07-02] MEDS: LINEZOLID 600 MG TAB PO SCH ×2 (08:17→20:08)
[2023-07-02] MEDS: cefUROXime axetil 500 MG TAB PO SCH ×2 (08:17→20:07)
[2023-07-02] MEDS: ATORVASTATIN 40 MG TAB PO SCH (08:17)
[2023-07-02] MEDS: CLOTRIMAZOLE 1% CR 15 GM TUBE EXT SCH ×2 (08:18→20:09)
[2023-07-02] MEDS: POTASSIUM CHLORIDE CRTAB 20 MEQ TABCR PO SCH (08:18)
[2023-07-02] MEDS: INSULIN ASPART PER UNIT CHARGE SC SCH ×4 (08:19→20:56)
[2023-07-02] MEDS: CLOPIDOGREL BISULFATE 75 MG TAB PO SCH (08:20)
[2023-07-02] MEDS: FLUTICASONE/VILANTEROL 200/25MCG 14 PUFFS/INHALER INH SCH (08:21)
[2023-07-02] MEDS: LANTUS PER UNIT CHARGE SC SCH (08:21)
[2023-07-02 09:18] LABS: BUN Creatinine Ratio 15.3 (10-20); Calcium 8.7 mg/dl (8.6-10.3); Creatinine Clr Calc Pharmacy 50.4 ml/min; Est GFR (African American) 55.8 ml/min; Est GFR (Non-African American) 48.2 ml/min; Potassium 3.4 mmol/L (3.5-5.1)
[2023-07-02] MEDS ORDERED: POTASSIUM CHLORIDE CRTAB 20 MEQ TABCR PO STA ×2 (10:04→17:52)
--- NOTE | 2023-07-02 10:05 | Hospitalist Progress Note ---
Date of Service July 01, 2023 Assessment & Plan (1) Acute encephalopathy: Plan: Ongoing. Waxing/waning his entire stay. But slowly improving. Patient has had altered mental status from the time of admission on 06/19. Altered MS earlier in the stay likely 2nd to etoh withdrawal +/- Wernicke's +/- sepsis +/- combination of factors. CT head 06/19/23 without acute findings. 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 He has large ventricles as well c/w significant atrophy. Certainly the prior CVAs, etc is a set-up for hospital delirium. Continue olanzapine at HS. Continue AM dose of olanzapine as well. (2) Thiamine deficiency: Plan: B1 level was 7 (8+normal). 2nd to etoh abuse. I am suspicious he has Wernicke's. Family reports he has had confusion for months. Confusion has been present entire admission. This is despite Rx of all medical issues. He continues to confabulate. He has received high dose thiamine earlier in the stay. Now on basal thiamine supplementation 200mg BID. Ultimately would decrease to 100mg BID. (3) PAD (peripheral artery disease): Plan: s/p arteriogram 06/28/[address] Moreno -- see his full procedure report SEVERE PAD of both legs with compromised flow below the knees b/l Dr Moreno does not feel intervention could be attempted at [facility] he would need tertiary care center for such I discussed this with his sister by phone PM of 06/28 Cont statin Cont plavix Spoke with Dr Elida Carter, vascular surgery at [facility], on 06/30. I had pushed his arteriogram images via PACS to [facility] after lengthy discussion with Dr Carter urgent or emergent Tx to [place] felt unnecessary we could refer to Dr Ventura locally OR to [facility] in [place] as outpatient (4) Pneumonia: Plan: suspected. 06/26/23 cxr with findings concerning for pneumonia. Completed 4 days of zosyn. Now on 3 days of ceftin. Completed 4 days of IV zyvox. Now on 3 days of PO zyvox. Tomorrow will be last day of all abx. MRSA screen was + hence the zyvox. pneumonia clinically resolved. (5) Elevated lactic acid level: Plan: as seen on 06/26/23 2nd to early sepsis from pneumonia? Blood cx's from 06/26/23 negative. lactate was likely due to #4 can't rule out that it wasn't from thiamine deficiency (6) Fall: Plan: Prior to presentation. Fortunately no major injuries from this fall. Thought to have been 2nd to recent etoh use. By report he was found down with 12+ beer cans surrounding him on the floor. Can't rule out other causes of his fall - subacute CVA, B1 def, alcohol-induced peripheral neuropathy, cerebellar atrophy from etoh abuse, etc. PT, OT Of note - CPK on 06/19 was wnl. MRI brain w/o ICH. (7) Alcohol abuse: Plan: Known h/o alcoholism with heavy drinking just prior to admission. Is at least 10+ days out from his last etoh beverage. Withdrawal likely resolved; has not needed ativan in numerous days (06/22 last dose?). Thiamine level returned low - certainly could have Wernicke's. Replace. Of note - he did receive high-dose IV thiamine earlier in the stay. Cont thiamine 200mg BID. Cont gabapentin 100mg TID. Cont folic acid supplementation. (8) Acute hyponatremia: Plan: Severe. Na level 118 at admission. Resolved. BMPs remained stable. (9) CHF (congestive heart failure): Plan: Most recent echo on 05/12/2023 revealed LVEF of 25-30%, elevated RVSP at 4050mmHg; mild to moderate gay valvular regurgitation cont metoprolol succinate 25mg BID ISAIAS on hold due to recent AZRA but plan to resume today cont lasix 40mg daily appears compensated except for LE edema consider increasing to BID lasix for a few days for the edema (10) Abnormal LFTs: Plan: Presumed 2nd to etoh use Can't rule out passive congestion from CHF Recent ammonia level wnl LFTs improved while here (11) T2DM (type 2 diabetes mellitus): Plan: Last A1c 7.4% on 05/06/2023 Glucose 143 on arrival Pharmacy is providing glycemic oversight BSG ACHS T2DM diet Cont basal-bolus regimen (12) Elevated troponin: Plan: Troponin 67.2-->63.4 on arrival No chest pain, no signs of ACS Likely 2nd to myocardial demand ischemia in the setting of his fall, etc. (13) PAF (paroxysmal atrial fibrillation): Plan: EKG on arrival showed A-fib with RVR Continue metoprolol succ 25mg BID - rates now controlled Continue apixaban 5mg BID Rates remain acceptable (14) HTN (hypertension): Plan: BPs acceptable (15) HLD (hyperlipidemia): Plan: Continue atorvastatin (16) COPD (chronic obstructive pulmonary disease): Plan: Continue home inhalers as needed No evidence of exacerbation at this time (17) Hypothyroidism: Plan: Continue levothyroxine TSH mildly elevated last 2 checks thus increased synthroid to 75mcg daily (18) GERD (gastroesophageal reflux disease): Plan: Continue famotidine (19) CAD (coronary atherosclerotic disease): Plan: Hx of cardiac cath on 02/22/23 - Summary: 1. Moderate nonobstructive multivessel coronary artery disease 30% heavily calcified distal left main by IVUS 40-50% heavily calcified ostial circumflex by IVUS (nonobstructive by IFR 0.95). 30% mid LAD in-stent restenosis (nonobstructive by IFR 0.95). Jailed D2 60 to 70% ostial Medical management advised at that time Continue metoprolol, atorvastatin, Plavix (20) Anemia: Plan: H/H stable (21) Urine retention: Plan: Perez catheter placed at time of admission Has been removed and voiding spontaneously Plan left message for Dorie Monday, sister, on her voicemail 06/26/23 finally did connect with Ms Monday on 06/28 -- extensive, lengthy update given to Ms Monday with current problems, plan of care, potential need for intervention of b/l leg PAD, etc earlier in the week tried to contact Ajay Davis at # listed in chart - no success attempted to call pt's daughter in law at a phone # supplied by our social work team - no answer as well Spoke with Henna Davis, daughter in law, by phone ([phone]) on 06/30/23 extensive update given Henna provided her 's cell #; 's name - Ajay ([phone]) needs rehab - dispo planning Admission and Anticipated Discharge Date Admission Date: June 19, 2023 Subjective no acute issues overnight tele - a.fib, rates acceptable denies any complaints during the visit states "I want to go home" eating well - nearly 100% of meals denies any foot or leg pain Review of Systems Review of Systems: cv - no chest pain pulm - no cough or shortness of breath GI - no abd pain/nausea/emesis ; +stools Physical Exam Physical Exam: gen - laying in bed, NAD, mildly confused mouth - MMM neck - no JVD at 90 degrees heart - irregularly irregular, s1 s2, no murmur lungs - residual crackles L base, improved airation R base, no increased work of breathing abd - soft NT ND BS+ ext - 1+ edema b/l vascular - DP and pos tib pulses b/l feet <1+; cap refill 3-4 seconds b/l feet skin - areas of scattered eschar on left great toe Results & Data Results & Data Vital Signs (Past 12 Hours) Vital Signs Temp Pulse Pulse Resp BP Pulse Ox O2 Del Method 07/01/23 16:47 82 07/01/23 16:16 36.5 C 76 18 117/75 97 Room Air 07/01/23 11:58 36.6 C 91 H 18 123/99 95 Room Air Laboratory Results Laboratory Results 06/30/23 06/30/23 06/30/23 11:08 16:18 20:12 Sodium Potassium Chloride Carbon Dioxide Anion Gap BUN Creatinine Est Cr Clr Drug Dosing Est GFR ( Amer) Est GFR (Non-Af Amer) BUN/Creatinine Ratio Glucose POC Glucose 175 H 113 H 134 H Calcium 07/01/23 07/01/23 07/01/23 06:51 07:20 11:33 Sodium 137 Potassium 3.4 L Chloride 103 Carbon Dioxide 25 Anion Gap 9 BUN 21 Creatinine 1.45 H Est Cr Clr Drug Dosing 50.0 Est GFR ( Amer) 55.4 Est GFR (Non-Af Amer) 47.8 BUN/Creatinine Ratio 14.5 Glucose 178 H POC Glucose 170 H 163 H Calcium 8.2 L 07/01/23 16:23 Sodium Potassium Chloride Carbon Dioxide Anion Gap BUN Creatinine Est Cr Clr Drug Dosing Est GFR ( Amer) Est GFR (Non-Af Amer) BUN/Creatinine Ratio Glucose POC Glucose 97 Calcium PG Care Time/CCT Total # of Minutes Spent Total Time Spent with Patient: Total time spent is greater than 50% in coordination of care (as documented) at patient's floor/unit and/or counseling patient: Coding Level of Care Code 71113 SUB INP/OBS CARE 2/35MIN Diagnoses Acute encephalopathy G93.40 Thiamine deficiency E51.9 PAD (peripheral artery disease) I73.9 Pneumonia J18.9 Elevated lactic acid level R79.89 Fall W19.XXXA Alcohol abuse F10.10 Acute hyponatremia E87.1 CHF (congestive heart failure) I50.9 Abnormal LFTs R79.89 T2DM (type 2 diabetes mellitus) E11.9 Elevated troponin R77.8 PAF (paroxysmal atrial fibrillation) I48.0 HTN (hypertension) I10 HLD (hyperlipidemia) E78.5 COPD (chronic obstructive pulmonary disease) J44.9 Hypothyroidism E03.9 GERD (gastroesophageal reflux disease) K21.9 CAD (coronary atherosclerotic disease) I25.10 Anemia D64.9 Urine retention R33.9
[2023-07-02] MEDS ORDERED: FUROSEMIDE 40 MG TAB PO ONE (17:52)
--- NOTE | 2023-07-02 19:47 | Hospitalist Progress Note ---
Date of Service July 02, 2023 Assessment & Plan (1) Pneumonia: Plan: 06/26/23 cxr with findings concerning for pneumonia. Completed 4 days of zosyn then 3 days of ceftin. Completed 4 days of IV zyvox then 3 days of PO zyvox. Stop abx after tonight's doses. pneumonia clinically resolved. (2) CHF (congestive heart failure): Plan: Most recent echo on 05/12/2023 revealed LVEF of 25-30%, elevated RVSP at 4050mmHg; mild to moderate gay valvular regurgitation cont metoprolol succinate 25mg BID cont enalapril 10mg daily cont lasix 40mg daily appears compensated except for LE edema - give extra dose of lasix 40mg x 1 this afternoon follows with [facility] cardiology (3) Acute encephalopathy: Plan: Ongoing. Waxing/waning his entire stay. But has improved. Patient has had altered mental status from the time of admission on 06/19. Altered MS earlier in the stay likely 2nd to etoh withdrawal +/- Wernicke's +/- sepsis +/- combination of factors. CT head 06/19/23 without acute findings. 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 He has large ventricles as well c/w significant atrophy. Certainly the prior CVAs, etc is a set-up for hospital delirium. Continue olanzapine at HS. Continue AM dose of olanzapine as well. (4) Thiamine deficiency: Plan: B1 level was 7 (8+normal). 2nd to etoh abuse. I am suspicious he has Wernicke's. Family reports he has had confusion for months. Confusion has been present entire admission. This is despite Rx of all medical issues. He continues to confabulate. He has received high dose thiamine earlier in the stay. Now on basal thiamine supplementation 200mg BID. Ultimately would decrease to 100mg BID. (5) PAD (peripheral artery disease): Plan: s/p arteriogram 06/28/[address] Moreno -- see his full procedure report SEVERE PAD of both legs with compromised flow below the knees b/l Dr Moreno does not feel intervention could be attempted at [facility] he would need tertiary care center for such I discussed this with his sister by phone PM of 06/28 Cont statin Cont plavix Spoke with Dr Elida Carter, vascular surgery at [facility], on 06/30. I had pushed his arteriogram images via PACS to [place] after lengthy discussion with Dr Carter urgent or emergent Tx to [place] felt unnecessary we could refer to Dr Ventura locally OR to [facility] in [place] as outpatient (6) Fall: Plan: Prior to presentation. Fortunately no major injuries from this fall. Thought to have been 2nd to recent etoh use. By report he was found down with 12+ beer cans surrounding him on the floor. Can't rule out other causes of his fall - subacute CVA, B1 def, alcohol-induced peripheral neuropathy, cerebellar atrophy from etoh abuse, etc. PT, OT Of note - CPK on 06/19 was wnl. MRI brain w/o ICH. (7) Alcohol abuse: Plan: Known h/o alcoholism with heavy drinking just prior to admission. Is at least 10+ days out from his last etoh beverage. Withdrawal likely resolved; has not needed ativan in numerous days (06/22 last dose?). Thiamine level returned low - certainly could have Wernicke's. Replace. Of note - he did receive high-dose IV thiamine earlier in the stay. Cont thiamine 200mg BID. Cont gabapentin 100mg TID. Cont folic acid supplementation. (8) Acute hyponatremia: Plan: Severe. Na level 118 at admission. Resolved. BMPs have remained stable. (9) Abnormal LFTs: Plan: Presumed 2nd to etoh use Can't rule out passive congestion from CHF Recent ammonia level wnl LFTs improved while here (10) T2DM (type 2 diabetes mellitus): Plan: Last A1c 7.4% on 05/06/2023 Glucose 143 on arrival Pharmacy is providing glycemic oversight BSG ACHS T2DM diet Cont basal-bolus regimen (11) Elevated troponin: Plan: Troponin 67.2-->63.4 on arrival No chest pain, no signs of ACS Likely 2nd to myocardial demand ischemia in the setting of his fall, etc. (12) PAF (paroxysmal atrial fibrillation): Plan: EKG on arrival showed A-fib with RVR Continue metoprolol succ 25mg BID - rates now controlled Continue apixaban 5mg BID Rates remain acceptable (13) HTN (hypertension): Plan: BPs acceptable (14) HLD (hyperlipidemia): Plan: Continue atorvastatin (15) COPD (chronic obstructive pulmonary disease): Plan: Continue home inhalers as needed No evidence of exacerbation at this time (16) Hypothyroidism: Plan: Continue levothyroxine TSH mildly elevated last 2 checks thus increased synthroid to 75mcg daily (17) GERD (gastroesophageal reflux disease): Plan: Continue famotidine (18) CAD (coronary atherosclerotic disease): Plan: Hx of cardiac cath on 02/22/23 - Summary: 1. Moderate nonobstructive multivessel coronary artery disease 30% heavily calcified distal left main by IVUS 40-50% heavily calcified ostial circumflex by IVUS (nonobstructive by IFR 0.95). 30% mid LAD in-stent restenosis (nonobstructive by IFR 0.95). Jailed D2 60 to 70% ostial Medical management advised at that time Continue metoprolol, atorvastatin, Plavix (19) Anemia: Plan: H/H stable (20) Urine retention: Plan: Perez catheter placed at time of admission Has been removed and voiding spontaneously (21) NSVT (nonsustained ventricular tachycardia): Plan: about 1x/day he has a brief episode of NSVT - no symptoms from such in light of EF<30% he will need to f/u with cardiology to potentially discuss ICD placement Plan left message for Dorie Monday, sister, on her voicemail 06/26/23 finally did connect with Ms Monday on 06/28 -- extensive, lengthy update given to Ms Monday with current problems, plan of care, potential need for intervention of b/l leg PAD, etc Spoke with Henna Davis, daughter in law, by phone ([phone]) on 06/30/23 extensive update given Henna provided her 's cell #; 's name - Ajay ([phone]) needs rehab - dispo planning Admission and Anticipated Discharge Date Admission Date: June 19, 2023 Subjective lying in bed watching TV offers no complaints asks about when he is leaving denies any pain in his feet or legs denies dyspnea tele stable, a.fib <100 BPM; 1 episode of NSVT overnight - no symptoms eating well -- 100% of meals Review of Systems Review of Systems: cv - denies chest pain pulm - no dyspnea at rest GI - no abd pain/nausea/emesis Physical Exam Physical Exam: gen - laying in bed, NAD, watching TV mouth - MMM neck - no obvious JVD at 90 degrees heart - irregularly irregular, s1 s2, no murmur lungs - mild crackles L base, o/w CTA b/l abd - soft NT ND BS+ ext - 1-2+ edema b/l vascular - DP and pos tib pulses b/l feet <1+ psych - mentation similar to yesterday Results & Data Results & Data Vital Signs (Past 12 Hours) Vital Signs Temp Pulse Pulse Resp BP Pulse Ox O2 Del Method 07/02/23 15:18 79 07/02/23 15:00 36.4 C L 79 16 126/83 98 Room Air 07/02/23 11:23 36.4 C L 85 18 117/75 94 Room Air 07/02/23 08:30 Room Air 07/02/23 08:00 80 Laboratory Results Laboratory Results - last 24 hr 07/01/23 07/02/23 07/02/23 19:59 07:35 08:43 Sodium 137 Potassium 3.4 L Chloride 102 Carbon Dioxide 29 Anion Gap 6 BUN 22 Creatinine 1.44 H Est Cr Clr Drug Dosing 50.4 Est GFR ( Amer) 55.8 Est GFR (Non-Af Amer) 48.2 BUN/Creatinine Ratio 15.3 Glucose 150 H POC Glucose 156 H 141 H Calcium 8.7 07/02/23 07/02/23 11:00 16:20 Sodium Potassium Chloride Carbon Dioxide Anion Gap BUN Creatinine Est Cr Clr Drug Dosing Est GFR ( Amer) Est GFR (Non-Af Amer) BUN/Creatinine Ratio Glucose POC Glucose 201 H 104 H Calcium PG Care Time/CCT Total # of Minutes Spent Total Time Spent with Patient: Total time spent is greater than 50% in coordination of care (as documented) at patient's floor/unit and/or counseling patient: Coding Level of Care Code 90773 SUB INP/OBS CARE 2/35MIN Diagnoses Pneumonia J18.9 CHF (congestive heart failure) I50.9 Acute encephalopathy G93.40 Thiamine deficiency E51.9 PAD (peripheral artery disease) I73.9 Fall W19.XXXA Alcohol abuse F10.10 Acute hyponatremia E87.1 Abnormal LFTs R79.89 T2DM (type 2 diabetes mellitus) E11.9 Elevated troponin R77.8 PAF (paroxysmal atrial fibrillation) I48.0 HTN (hypertension) I10 HLD (hyperlipidemia) E78.5 COPD (chronic obstructive pulmonary disease) J44.9 Hypothyroidism E03.9 GERD (gastroesophageal reflux disease) K21.9 CAD (coronary atherosclerotic disease) I25.10 Anemia D64.9 Urine retention R33.9 NSVT (nonsustained ventricular tachycardia) I47.29
[2023-07-02] MEDS: OLANZapine 5 MG TABLET PO SCH (20:08)
[2023-07-02] MEDS: ONDANSETRON INJ 2 MG/ML 2 ML VIAL IV PRN (22:47)
[2023-07-03] MEDS: ACETAMINOPHEN 325 MG TAB PO PRN ×2 (00:03→21:25)
[2023-07-03] MEDS: LEVOTHYROXINE SODIUM 75 MCG TABLET PO SCH (06:13)
[2023-07-03 07:17] LABS: BUN Creatinine Ratio 13.6 (10-20); Calcium 8.4 mg/dl (8.6-10.3); Creatinine Clr Calc Pharmacy 41.1 ml/min; Est GFR (African American) 43.5 ml/min; Est GFR (Non-African American) 37.5 ml/min; Magnesium 1.6 mg/dl (1.7-2.4); Potassium 3.9 mmol/L (3.5-5.1)
[2023-07-03] MEDS: POTASSIUM CHLORIDE CRTAB 20 MEQ TABCR PO SCH (07:59)
[2023-07-03] MEDS: FLUTICASONE/VILANTEROL 200/25MCG 14 PUFFS/INHALER INH SCH (07:59)
[2023-07-03] MEDS: CLOPIDOGREL BISULFATE 75 MG TAB PO SCH (08:01)
[2023-07-03] MEDS: ENALAPRIL MALEATE 10 MG TAB PO SCH (08:02)
[2023-07-03] MEDS: OLANZAPINE 2.5 MG TAB PO SCH (08:02)
[2023-07-03] MEDS: METOPROLOL SUCC 25MG EXT REL TAB PO SCH ×2 (08:02→20:14)
[2023-07-03] MEDS: APIXABAN 5 MG TABLET PO SCH ×2 (08:02→20:13)
[2023-07-03] MEDS: FOLIC ACID 1 MG TAB PO SCH (08:02)
[2023-07-03] MEDS: FAMOTIDINE 20 MG TAB PO SCH ×2 (08:02→20:14)
[2023-07-03] MEDS: ATORVASTATIN 40 MG TAB PO SCH (08:02)
[2023-07-03] MEDS: GABAPENTIN 100 MG CAP PO SCH ×3 (08:02→20:12)
[2023-07-03] MEDS: THIAMINE HCL 100 MG TAB PO SCH ×2 (08:04→20:13)
[2023-07-03] MEDS: CLOTRIMAZOLE 1% CR 15 GM TUBE EXT SCH ×2 (08:06→20:12)
[2023-07-03] MEDS: INSULIN ASPART PER UNIT CHARGE SC SCH ×4 (08:12→20:54)
[2023-07-03] MEDS: LANTUS PER UNIT CHARGE SC SCH (08:12)
[2023-07-03] MEDS: MAGNESIUM SULFATE / D5W 1 GM/100 ML BAG IV SCH ×2 (08:13→10:11)
--- NOTE | 2023-07-03 11:25 | Pharmacy Report ---
Pharmacy Glycemic Sign Off Nt - Date of Service July 03, 2023 - Assessment & Plan ASSESSMENT: * Pharmacy was consulted by Dr Fried on 06/19 for glycemic control and to write orders per [facility] inpatient glycemic control protocol. * Patient has been receiving/requiring less than 10 units of insulin per day for adequate glycemic control * BSGs ranging 97- 201 mg/dl * Regimen has only required minor adjustments over the past 48hrs to achieve this level of control * Do not anticipate further changes in patient status that would quickly deteriorate glycemic control (i.e. patient to be NPO for upcoming procedure, steroids tapering, starting tube feedings, etc). PLAN FOR INPATIENT GLYCEMIC CONTROL: No changes needed to current regimen. * Continue basal insulin with Lantus 3 units SQ daily * Continue NovoLog per scale ACHS/Q6hrs while NPO * Goal range = 120 - 150 mg/dl * CF = 55 mg/dl/unit * CR = 1 unit for every 50 g CHO consumed * Pharmacy is signing off of glycemic consult and will no longer be making adjustments to inpatient regimen. Please feel free to re-consult if needed. Thank you.
--- NOTE | 2023-07-03 20:10 | Hospitalist Progress Note ---
Date of Service July 03, 2023 Assessment & Plan (1) Pneumonia: Plan: 06/26/23 cxr with findings concerning for pneumonia. Completed 4 days of zosyn then 3 days of ceftin. Completed 4 days of IV zyvox then 3 days of PO zyvox. Course completed - pneumonia clinically resolved. (2) CHF (congestive heart failure): Plan: Most recent echo on 05/12/2023 revealed LVEF of 25-30%, elevated RVSP at 4050 mmHg; mild to moderate gay valvular regurgitation cont metoprolol succinate 25mg BID but increase to 50mg BID due to near-daily runs of NSVT (vs a.fib w/ abberancy) cont enalapril 10mg daily cont lasix 40mg daily (this am's dose held due to rise in creatinine) appears compensated except for LE edema attempts at trying to increase his diuretics usually leads to a rise in creatinine shortly thereafter follows with [facility] cardiology needs f/u with them shortly after d/c to discuss possible ICD placement in future due to EF <30% (3) Acute encephalopathy: Plan: Ongoing. Waxing/waning his entire stay. But has improved. Patient has had altered mental status from the time of admission on 06/19. Altered MS earlier in the stay likely 2nd to etoh withdrawal +/- Wernicke's +/- sepsis +/- combination of factors. CT head 06/19/23 without acute findings. 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 He has large ventricles as well c/w significant atrophy. Certainly the prior CVAs, etc is a set-up for hospital delirium. Continue olanzapine at HS and AM olanzapine as well. Tolerating this regimen. (4) Thiamine deficiency: Plan: B1 level was 7 (8+normal). 2nd to etoh abuse. I am suspicious he has Wernicke's. Family reports he has had confusion for months. Confusion has been present entire admission. This is despite Rx of all medical issues. He continues to confabulate. He has received high dose thiamine earlier in the stay. Now on basal thiamine supplementation 200mg BID. Ultimately would decrease to 100mg BID. (5) PAD (peripheral artery disease): Plan: s/p arteriogram 06/28/[address] Moreno -- see his full procedure report SEVERE PAD of both legs with compromised flow below the knees b/l Dr Moreno does not feel intervention could be attempted at [facility] he would need tertiary care center for such I discussed this with his sister by phone PM of 06/28 Cont statin Cont plavix Spoke with Dr Elida Carter, vascular surgery at [facility], on 06/30/23. I had pushed his arteriogram images via PACS to [place] after lengthy discussion with Dr Carter urgent or emergent Tx to [place] felt unnecessary we could refer to Dr Ventura locally OR to [facility] in [place] as outpatient denies any rest pain of his feet/legs today (6) Fall: Plan: Prior to presentation. Fortunately no major injuries from this fall. Thought to have been 2nd to recent etoh use. By report he was found down with 12+ beer cans surrounding him on the floor. Can't rule out other causes of his fall - subacute CVA, B1 def, alcohol-induced peripheral neuropathy, cerebellar atrophy from etoh abuse, etc. PT, OT Of note - CPK on 06/19 was wnl. MRI brain w/o ICH. (7) Alcohol abuse: Plan: Known h/o alcoholism with heavy drinking just prior to admission. Is at least 10+ days out from his last etoh beverage. Withdrawal likely resolved; has not needed ativan in numerous days (06/22 last dose?). Thiamine level returned low - certainly could have Wernicke's. Replace. Of note - he did receive high-dose IV thiamine earlier in the stay. Cont thiamine 200mg BID. Cont gabapentin 100mg TID. Cont folic acid supplementation. (8) Acute hyponatremia: Plan: Severe. Na level 118 at admission. Resolved. BMPs have remained stable. (9) Abnormal LFTs: Plan: Presumed 2nd to etoh use Can't rule out passive congestion from CHF Recent ammonia level wnl LFTs improved while here (10) T2DM (type 2 diabetes mellitus): Plan: Last A1c 7.4% on 05/06/2023 Glucose 143 on arrival Pharmacy is providing glycemic oversight BSG ACHS T2DM diet Cont basal-bolus regimen (11) Elevated troponin: Plan: Troponin 67.2-->63.4 on arrival No chest pain, no signs of ACS Likely 2nd to myocardial demand ischemia in the setting of his fall, etc. (12) PAF (paroxysmal atrial fibrillation): Plan: EKG on arrival showed A-fib with RVR Continue metoprolol succ 25mg BID - increased to 50mg BID due to near-daily runs of brief wide-complex tachycardia (NSVT vs a.fib w/ aberrancy) Continue apixaban 5mg BID (13) HTN (hypertension): Plan: BPs acceptable (14) HLD (hyperlipidemia): Plan: Continue atorvastatin (15) COPD (chronic obstructive pulmonary disease): Plan: Continue home inhalers as needed No evidence of exacerbation at this time (16) Hypothyroidism: Plan: Continue levothyroxine TSH mildly elevated last 2 checks thus increased synthroid to 75mcg daily Repeat TSH in 6 weeks as outpatient (17) GERD (gastroesophageal reflux disease): Plan: Continue famotidine (18) CAD (coronary atherosclerotic disease): Plan: Hx of cardiac cath on 02/22/23 - Summary: 1. Moderate nonobstructive multivessel coronary artery disease 30% heavily calcified distal left main by IVUS 40-50% heavily calcified ostial circumflex by IVUS (nonobstructive by IFR 0.95). 30% mid LAD in-stent restenosis (nonobstructive by IFR 0.95). Jailed D2 60 to 70% ostial Medical management advised at that time Continue metoprolol, atorvastatin, Plavix (19) Anemia: Plan: H/H stable (20) Urine retention: Plan: Perez catheter placed at time of admission Has been removed and voiding spontaneously since discontinuation (21) NSVT (nonsustained ventricular tachycardia): Plan: about 1x/day he has a brief episode of NSVT - no symptoms from such if not NSVT could be a.fib with aberrancy either way, in light of EF<30%, he will need to f/u with cardiology to potentially discuss ICD placement (22) Hypomagnesemia: Plan: replace with 2 grams mag sulfate IV repeat level am (23) Proteinuria: Plan: protein on u/a 2-3+ since early 2022 concerning for nephropathy could be a reason for refractory edema of his legs cont ISAIAS inhibitor Plan left message for Dorie Monday, sister, on her voicemail 06/26/23 finally did connect with Ms Monday on 06/28 -- extensive, lengthy update given to Ms Monday with current problems, plan of care, potential need for intervention of b/l leg PAD, etc Ms Monday lives in [place] during the winter Spoke with Henna Davis, daughter in law, by phone ([phone]) on 06/30/23 extensive update given spoke with pt's son Ajay ([phone]) on 07/03/23- extensive update given needs rehab - dispo planning - lack of bed availability at various facilities remains an issue Admission and Anticipated Discharge Date Admission Date: June 19, 2023 Subjective patient resting in bed watching TV no complaints asks "when am I getting out of here?" we talked about rehab post-d/c - immediately he stated he could "do it at home" a few times later he then stated "I do want to go rehab" before I left the room he told me he was worried that "people were dealing drugs" and that he thought it was "opium" he was confabulating as on previous visits tele overnight - 30 beat run of NSVT vs a.fib with aberrancy -- no symptoms Review of Systems Review of Systems: cv - no chest pain, ongoing mild edema; no orthopnea pulm - no dyspnea GI - no abd pain or N/V Physical Exam Physical Exam: gen - laying in bed, NAD, watching TV, confabulating mouth - MMM neck - no JVD heart - irregularly irregular, s1 s2, no murmur lungs - mild crackles L base, o/w CTA b/l - no change; airation improved R base abd - soft NT ND BS+ ext - 1-2+ edema b/l vascular - DP and pos tib pulses b/l feet <1+; eschars on L great toe and scattered other portions of foot - unchanged; feet are cool b/l psych - mentation unchanged from prior visits Results & Data Results & Data Vital Signs (Past 12 Hours) Vital Signs Temp Pulse Pulse Resp BP Pulse Ox O2 Del Method 07/03/23 19:00 36.8 C 86 20 106/63 99 Room Air 07/03/23 15:00 74 07/03/23 15:00 36.9 C 76 16 115/80 97 Room Air 07/03/23 11:35 36.5 C 93 H 18 109/66 98 Room Air Laboratory Results Laboratory Results - last 24 hr 07/02/23 07/03/23 07/03/23 20:32 06:08 07:15 Sodium 135 L Potassium 3.9 Chloride 101 Carbon Dioxide 28 Anion Gap 6 BUN 24 H Creatinine 1.77 H D Est Cr Clr Drug Dosing 41.1 Est GFR ( Amer) 43.5 Est GFR (Non-Af Amer) 37.5 BUN/Creatinine Ratio 13.6 Glucose 139 H POC Glucose 146 H 131 H Calcium 8.4 L Magnesium 1.6 L 07/03/23 07/03/23 11:11 16:15 Sodium Potassium Chloride Carbon Dioxide Anion Gap BUN Creatinine Est Cr Clr Drug Dosing Est GFR ( Amer) Est GFR (Non-Af Amer) BUN/Creatinine Ratio Glucose POC Glucose 172 H 82 Calcium Magnesium PG Care Time/CCT Total # of Minutes Spent Total Time Spent with Patient: Total time spent is greater than 50% in coordination of care (as documented) at patient's floor/unit and/or counseling patient: Coding Level of Care Code 07677 SUB INP/OBS CARE 3/50MIN Diagnoses Pneumonia J18.9 CHF (congestive heart failure) I50.9 Acute encephalopathy G93.40 Thiamine deficiency E51.9 PAD (peripheral artery disease) I73.9 Fall W19.XXXA Alcohol abuse F10.10 Acute hyponatremia E87.1 Abnormal LFTs R79.89 T2DM (type 2 diabetes mellitus) E11.9 Elevated troponin R77.8 PAF (paroxysmal atrial fibrillation) I48.0 HTN (hypertension) I10 HLD (hyperlipidemia) E78.5 COPD (chronic obstructive pulmonary disease) J44.9 Hypothyroidism E03.9 GERD (gastroesophageal reflux disease) K21.9 CAD (coronary atherosclerotic disease) I25.10 Anemia D64.9 Urine retention R33.9 NSVT (nonsustained ventricular tachycardia) I47.29 Hypomagnesemia E83.42 Proteinuria R80.9
[2023-07-03] MEDS: OLANZapine 5 MG TABLET PO SCH (20:15)
[2023-07-04] MEDS: ACETAMINOPHEN 325 MG TAB PO PRN ×2 (04:29→20:18)
[2023-07-04] MEDS: LEVOTHYROXINE SODIUM 75 MCG TABLET PO SCH (05:50)
[2023-07-04 07:09] LABS: BUN Creatinine Ratio 17.9 (10-20); Calcium 8.3 mg/dl (8.6-10.3); Creatinine Clr Calc Pharmacy 48.2 ml/min; Est GFR (African American) 52.7 ml/min; Est GFR (Non-African American) 45.5 ml/min; Potassium 3.9 mmol/L (3.5-5.1)
[2023-07-04] MEDS: INSULIN ASPART PER UNIT CHARGE SC SCH ×4 (08:19→20:23)
[2023-07-04] MEDS: POTASSIUM CHLORIDE CRTAB 20 MEQ TABCR PO SCH (08:20)
[2023-07-04] MEDS: APIXABAN 5 MG TABLET PO SCH ×2 (08:21→20:21)
[2023-07-04] MEDS: FAMOTIDINE 20 MG TAB PO SCH ×2 (08:21→20:20)
[2023-07-04] MEDS: ATORVASTATIN 40 MG TAB PO SCH (08:21)
[2023-07-04] MEDS: CLOPIDOGREL BISULFATE 75 MG TAB PO SCH (08:21)
[2023-07-04] MEDS: FOLIC ACID 1 MG TAB PO SCH (08:21)
[2023-07-04] MEDS: OLANZAPINE 2.5 MG TAB PO SCH (08:22)
[2023-07-04] MEDS: THIAMINE HCL 100 MG TAB PO SCH ×2 (08:22→20:21)
[2023-07-04] MEDS: GABAPENTIN 100 MG CAP PO SCH ×3 (08:22→20:21)
[2023-07-04] MEDS: FLUTICASONE/VILANTEROL 200/25MCG 14 PUFFS/INHALER INH SCH (08:22)
[2023-07-04] MEDS: ENALAPRIL MALEATE 10 MG TAB PO SCH (08:22)
[2023-07-04] MEDS: LANTUS PER UNIT CHARGE SC SCH (08:23)
[2023-07-04] MEDS: CLOTRIMAZOLE 1% CR 15 GM TUBE EXT SCH ×2 (08:23→20:22)
[2023-07-04] MEDS: METOPROLOL SUCC 50MG EXT REL TAB PO SCH ×2 (10:43→20:19)
--- NOTE | 2023-07-04 18:20 | Hospitalist Progress Note ---
Date of Service July 04, 2023 Assessment & Plan (1) Pneumonia: Plan: 06/26/23 cxr with findings concerning for pneumonia. Completed 4 days of zosyn then 3 days of ceftin. Completed 4 days of IV zyvox then 3 days of PO zyvox. Course completed - pneumonia clinically resolved. (2) CHF (congestive heart failure): Plan: Most recent echo on 05/12/2023 revealed LVEF of 25-30%, elevated RVSP at 4050mmHg; mild to moderate gay valvular regurgitation cont metoprolol succinate increased to 50mg BID due to near-daily runs of NSVT (vs a.fib w/ abberancy) cont enalapril 10mg daily cont lasix resume at reduced dose of 20 mg daily appears compensated except for LE edema attempts at trying to increase his diuretics usually leads to a rise in creatinine shortly thereafter follows with [facility] cardiology needs f/u with them shortly after d/c to discuss possible ICD placement in future due to EF <30% (3) Acute encephalopathy: Plan: Ongoing. Waxing/waning his entire stay. But has improved. Patient has had altered mental status from the time of admission on 06/19. Altered MS earlier in the stay likely 2nd to etoh withdrawal +/- Wernicke's +/- sepsis +/- combination of factors. CT head 06/19/23 without acute findings. 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 He has large ventricles as well c/w significant atrophy. Certainly the prior CVAs, etc is a set-up for hospital delirium. Continue olanzapine at HS and AM olanzapine as well. Tolerating this regimen. (4) Thiamine deficiency: Plan: B1 level was 7 (8+normal). 2nd to etoh abuse. I am suspicious he has Wernicke's. Family reports he has had confusion for months. Confusion has been present entire admission. This is despite Rx of all medical issues. He continues to confabulate. He has received high dose thiamine earlier in the stay. Now on basal thiamine supplementation 200mg BID. Ultimately would decrease to 100mg BID. (5) PAD (peripheral artery disease): Plan: s/p arteriogram 06/28/[address] Moreno -- see his full procedure report SEVERE PAD of both legs with compromised flow below the knees b/l Dr Moreno does not feel intervention could be attempted at [facility] he would need tertiary care center for such I discussed this with his sister by phone PM of 06/28 Cont statin Cont plavix Spoke with Dr Elida Carter, vascular surgery at [facility], on 06/30/23. I had pushed his arteriogram images via PACS to [place] after lengthy discussion with Dr Carter urgent or emergent Tx to [place] felt unnecessary we could refer to Dr Ventura locally OR to [facility] in [place] as outpatient denies any rest pain of his feet/legs today (6) Fall: Plan: Prior to presentation. Fortunately no major injuries from this fall. Thought to have been 2nd to recent etoh use. By report he was found down with 12+ beer cans surrounding him on the floor. Can't rule out other causes of his fall - subacute CVA, B1 def, alcohol-induced peripheral neuropathy, cerebellar atrophy from etoh abuse, etc. PT, OT Of note - CPK on 06/19 was wnl. MRI brain w/o ICH. (7) Alcohol abuse: Plan: Known h/o alcoholism with heavy drinking just prior to admission. treated for alcohol withdrawal and resolved Thiamine level returned low - certainly could have Wernicke's. Replace. Of note - he did receive high-dose IV thiamine earlier in the stay. Cont thiamine 200mg BID. Cont gabapentin 100mg TID. Cont folic acid supplementation. (8) Acute hyponatremia: Plan: Severe. Na level 118 at admission. Resolved. BMPs have remained stable. (9) Abnormal LFTs: Plan: Presumed 2nd to etoh use Can't rule out passive congestion from CHF Recent ammonia level wnl LFTs improved while here (10) T2DM (type 2 diabetes mellitus): Plan: Last A1c 7.4% on 05/06/2023 Glucose 143 on arrival Pharmacy is providing glycemic oversight BSG ACHS T2DM diet Cont basal-bolus regimen (11) Elevated troponin: Plan: Troponin 67.2-->63.4 on arrival No chest pain, no signs of ACS Likely 2nd to myocardial demand ischemia in the setting of his fall, etc. (12) PAF (paroxysmal atrial fibrillation): Plan: EKG on arrival showed A-fib with RVR, now rate controlled Continue metoprolol Continue apixaban 5mg BID (13) HTN (hypertension): Plan: BPs acceptable (14) HLD (hyperlipidemia): Plan: Continue atorvastatin (15) COPD (chronic obstructive pulmonary disease): Plan: Continue home inhalers as needed No evidence of exacerbation at this time (16) Hypothyroidism: Plan: Continue levothyroxine TSH mildly elevated last 2 checks thus increased synthroid to 75mcg daily Repeat TSH in 6 weeks as outpatient (17) GERD (gastroesophageal reflux disease): Plan: Continue famotidine (18) CAD (coronary atherosclerotic disease): Plan: Hx of cardiac cath on 02/22/23 - Summary: 1. Moderate nonobstructive multivessel coronary artery disease 30% heavily calcified distal left main by IVUS 40-50% heavily calcified ostial circumflex by IVUS (nonobstructive by IFR 0.95). 30% mid LAD in-stent restenosis (nonobstructive by IFR 0.95). Jailed D2 60 to 70% ostial Medical management advised at that time Continue metoprolol, atorvastatin, Plavix (19) Anemia: Plan: H/H stable (20) Urine retention: Plan: Perez catheter placed at time of admission Has been removed and voiding spontaneously since discontinuation (21) NSVT (nonsustained ventricular tachycardia): Plan: about 1x/day he has a brief episode of NSVT - no symptoms from such if not NSVT could be a.fib with aberrancy either way, in light of EF<30%, he will need to f/u with cardiology to potentially discuss ICD placement (22) Hypomagnesemia: Plan: replaced with 2 grams mag sulfate IV repeat level normal today (23) Proteinuria: Plan: protein on u/a 2-3+ since early 2022 concerning for nephropathy could be a reason for refractory edema of his legs cont ISAIAS inhibitor Plan left message for Dorie Monday, sister, on her voicemail 06/26/23 finally did connect with Ms Monday on 06/28 -- extensive, lengthy update given to Ms Monday with current problems, plan of care, potential need for intervention of b/l leg PAD, etc Ms Monday lives in [place] during the winter Spoke with Henna Davis, daughter in law, by phone ([phone]) on 06/30/23 extensive update given spoke with pt's son Ajay ([phone]) on 07/03/23- extensive update given needs rehab - dispo planning - lack of bed availability at various facilities remains an issue Admission and Anticipated Discharge Date Admission Date: June 19, 2023 Subjective remains pleasantly confused, thought there was someone in his house but it was actually someone walking passed in the hallway no complaints no cough chest pain shortness of breath or abdominal pain Physical Exam 2 Physical Exam: PHYSICAL EXAMINATION Last 24h vital signs reviewed, see documentation in flowsheet General: comfortable appearing, no distress HEENT: Normocephalic, atraumatic, pupils round and equal, sclerae anicteric, no conjunctival injection, moist mucus membranes Lungs: Normal respiratory effort. Clear to auscultation bilaterally. No RRW Heart: Regular rate and rhythm, no murmurs. No JVD Abdomen: Soft, nontender, nondistended. Bowel sounds present. Extremities: Warm, dry, well-perfused. No extremity edema. Neuro: Alert and oriented x 1, face symmetric, moves 4 extremities well Psych: Normal affect and behavior Results & Data Results & Data Vital Signs (Past 12 Hours) Vital Signs Temp Pulse Pulse Resp BP Pulse Ox O2 Del Method 07/04/23 15:29 84 07/04/23 15:00 36.7 C 85 18 125/83 95 Room Air 07/04/23 11:00 36.7 C 76 18 131/71 98 Room Air 07/04/23 07:00 78 07/04/23 07:00 36.7 C 82 18 118/73 98 Room Air Laboratory Results 06/29/23 08:10 07/04/23 06:20 PG Care Time/CCT Total # of Minutes Spent Total Time Spent with Patient: Total time spent is greater than 50% in coordination of care (as documented) at patient's floor/unit and/or counseling patient: Coding Level of Care Code 84706 SUB INP/OBS CARE 2/35MIN Diagnoses Pneumonia J18.9 CHF (congestive heart failure) I50.9 Acute encephalopathy G93.40 Thiamine deficiency E51.9 PAD (peripheral artery disease) I73.9 Fall W19.XXXA Alcohol abuse F10.10 Acute hyponatremia E87.1 Abnormal LFTs R79.89 T2DM (type 2 diabetes mellitus) E11.9 Elevated troponin R77.8 PAF (paroxysmal atrial fibrillation) I48.0 HTN (hypertension) I10 HLD (hyperlipidemia) E78.5 COPD (chronic obstructive pulmonary disease) J44.9 Hypothyroidism E03.9 GERD (gastroesophageal reflux disease) K21.9 CAD (coronary atherosclerotic disease) I25.10 Anemia D64.9 Urine retention R33.9 NSVT (nonsustained ventricular tachycardia) I47.29 Hypomagnesemia E83.42 Proteinuria R80.9
[2023-07-04] MEDS: OLANZapine 5 MG TABLET PO SCH (20:21)
[2023-07-05] MEDS: ACETAMINOPHEN 325 MG TAB PO PRN ×2 (00:09→12:11)
[2023-07-05] MEDS: LEVOTHYROXINE SODIUM 75 MCG TABLET PO SCH (04:52)
[2023-07-05] MEDS ORDERED: OXYMETAZOLINE 0.05% 30 ML BTL ONE (08:09)
[2023-07-05] MEDS: FLUTICASONE/VILANTEROL 200/25MCG 14 PUFFS/INHALER INH SCH (08:26)
[2023-07-05] MEDS: CLOTRIMAZOLE 1% CR 15 GM TUBE EXT SCH (08:26)
[2023-07-05] MEDS: THIAMINE HCL 100 MG TAB PO SCH ×2 (08:27→19:27)
[2023-07-05] MEDS: POTASSIUM CHLORIDE CRTAB 20 MEQ TABCR PO SCH (08:27)
[2023-07-05] MEDS: ATORVASTATIN 40 MG TAB PO SCH (08:28)
[2023-07-05] MEDS: OLANZAPINE 2.5 MG TAB PO SCH (08:28)
[2023-07-05] MEDS: CLOPIDOGREL BISULFATE 75 MG TAB PO SCH (08:28)
[2023-07-05] MEDS: GABAPENTIN 100 MG CAP PO SCH (08:28)
[2023-07-05] MEDS: FOLIC ACID 1 MG TAB PO SCH (08:28)
[2023-07-05] MEDS: ENALAPRIL MALEATE 10 MG TAB PO SCH (08:28)
[2023-07-05] MEDS: METOPROLOL SUCC 50MG EXT REL TAB PO SCH ×2 (08:28→19:27)
[2023-07-05] MEDS: FAMOTIDINE 20 MG TAB PO SCH ×2 (08:28→19:27)
[2023-07-05] MEDS: FUROSEMIDE 20 MG TAB PO SCH (08:29)
[2023-07-05] MEDS: APIXABAN 5 MG TABLET PO SCH (08:29)
[2023-07-05] MEDS: INSULIN ASPART PER UNIT CHARGE SC SCH ×4 (08:33→20:40)
[2023-07-05] MEDS: LANTUS PER UNIT CHARGE SC SCH (08:36)
[2023-07-05] MEDS: OLANZapine ZYDIS 5 MG ORALLY DIS. TAB PO PRN (13:29)
[2023-07-05] MEDS ORDERED: OLANZapine 10 MG/2.1 ML SDV IM STA (16:04)
--- NOTE | 2023-07-05 17:02 | Hospitalist Progress Note ---
Date of Service July 05, 2023 Assessment & Plan (1) Acute anterior epistaxis: Plan: Has had minor epistaxis almost daily per nursing staff AM 07/05 severe epistaxis not responsive to 3 rounds of 3 squirts of afrin and prolonged holding pressure Has been on plavix and apixaban - held both On exam source is anterior R nare Placed R nare rhinorocket with assistance of Dr. Teague with significant improvement in bleeding - throughout rest of day minimal/trickle Ordered augmentin bid for sinusitis prophylaxis Assess for removal in 48-72h -AM CBC ordered Acute agitation related to his dementia and epistaxis with nasal packing - persisted throughout the day -requires soft wrist restraints to prevent him from pulling out the nasal packing -ordered olanzapine 2.5 mg q8h PRN but spit out dose, ordered olanzapine 5 mg IM x 1 for severe agitation after discussion with nursing staff (2) Pneumonia: Plan: 06/26/23 cxr with findings concerning for pneumonia. Completed 4 days of zosyn then 3 days of ceftin. Completed 4 days of IV zyvox then 3 days of PO zyvox. Course completed - pneumonia clinically resolved. (3) CHF (congestive heart failure): Plan: Most recent echo on 05/12/2023 revealed LVEF of 25-30%, elevated RVSP at 4050mmHg; mild to moderate gay valvular regurgitation cont metoprolol succinate increased to 50mg BID due to near-daily runs of NSVT (vs a.fib w/ abberancy) cont enalapril 10mg daily cont lasix resumed at reduced dose of 20 mg daily appears compensated except for LE edema attempts at trying to increase his diuretics usually leads to a rise in creatinine shortly thereafter follows with [facility] cardiology needs f/u with them shortly after d/c to discuss possible ICD placement in future due to EF <30% (4) Acute encephalopathy: Plan: Ongoing. Waxing/waning his entire stay. But has improved. Patient has had altered mental status from the time of admission on 06/19. Altered MS earlier in the stay likely 2nd to etoh withdrawal +/- Wernicke's +/- sepsis +/- combination of factors. CT head 06/19/23 without acute findings. 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 He has large ventricles as well c/w significant atrophy. Certainly the prior CVAs, etc is a set-up for hospital delirium. Continue olanzapine at HS and AM olanzapine as well. Tolerating this regimen. (5) Thiamine deficiency: Plan: B1 level was 7 (8+normal). 2nd to etoh abuse. I am suspicious he has Wernicke's. Family reports he has had confusion for months. Confusion has been present entire admission. This is despite Rx of all medical issues. He continues to confabulate. He has received high dose thiamine earlier in the stay. Now on basal thiamine supplementation 200mg BID. Ultimately would decrease to 100mg BID. (6) PAD (peripheral artery disease): Plan: s/p arteriogram 06/28/[address] Moreno -- see his full procedure report SEVERE PAD of both legs with compromised flow below the knees b/l Dr Moreno does not feel intervention could be attempted at [facility] he would need tertiary care center for such I discussed this with his sister by phone PM of 06/28 Cont statin plavix - currently held Spoke with Dr Elida Carter, vascular surgery at [facility], on 06/30/23. I had pushed his arteriogram images via PACS to [place] after lengthy discussion with Dr Carter urgent or emergent Tx to [place] felt unnecessary we could refer to Dr Ventura locally OR to [facility] in [place] as outpatient denies any rest pain of his feet/legs today (7) Fall: Plan: Prior to presentation. Fortunately no major injuries from this fall. Thought to have been 2nd to recent etoh use. By report he was found down with 12+ beer cans surrounding him on the floor. Can't rule out other causes of his fall - subacute CVA, B1 def, alcohol-induced peripheral neuropathy, cerebellar atrophy from etoh abuse, etc. PT, OT Of note - CPK on 06/19 was wnl. MRI brain w/o ICH. (8) Alcohol abuse: Plan: Known h/o alcoholism with heavy drinking just prior to admission. treated for alcohol withdrawal and resolved Thiamine level returned low - certainly could have Wernicke's. Replace. Of note - he did receive high-dose IV thiamine earlier in the stay. Cont thiamine 200mg BID. Cont gabapentin 100mg TID. Cont folic acid supplementation. (9) Acute hyponatremia: Plan: Severe. Na level 118 at admission. Resolved. BMPs have remained stable. (10) Abnormal LFTs: Plan: Presumed 2nd to etoh use Can't rule out passive congestion from CHF Recent ammonia level wnl LFTs improved while here (11) T2DM (type 2 diabetes mellitus): Plan: Last A1c 7.4% on 05/06/2023 Glucose 143 on arrival Pharmacy is providing glycemic oversight BSG ACHS T2DM diet Cont basal-bolus regimen (12) Elevated troponin: Plan: Troponin 67.2-->63.4 on arrival No chest pain, no signs of ACS Likely 2nd to myocardial demand ischemia in the setting of his fall, etc. (13) PAF (paroxysmal atrial fibrillation): Plan: EKG on arrival showed A-fib with RVR, now rate controlled Continue metoprolol has been on apixaban 5mg BID - currently held because of severe epistaxis (14) HTN (hypertension): Plan: BPs acceptable (15) HLD (hyperlipidemia): Plan: Continue atorvastatin (16) COPD (chronic obstructive pulmonary disease): Plan: Continue home inhalers as needed No evidence of exacerbation at this time (17) Hypothyroidism: Plan: Continue levothyroxine TSH mildly elevated last 2 checks thus increased synthroid to 75mcg daily Repeat TSH in 6 weeks as outpatient (18) GERD (gastroesophageal reflux disease): Plan: Continue famotidine (19) CAD (coronary atherosclerotic disease): Plan: Hx of cardiac cath on 02/22/23 - Summary: 1. Moderate nonobstructive multivessel coronary artery disease 30% heavily calcified distal left main by IVUS 40-50% heavily calcified ostial circumflex by IVUS (nonobstructive by IFR 0.95). 30% mid LAD in-stent restenosis (nonobstructive by IFR 0.95). Jailed D2 60 to 70% ostial Medical management advised at that time Continue metoprolol, atorvastatin, Plavix (20) Anemia: Plan: H/H stable -AM CBC (21) Urine retention: Plan: Perez catheter placed at time of admission Has been removed and voiding spontaneously since discontinuation (22) NSVT (nonsustained ventricular tachycardia): Plan: has frequent episodes of NSVT vs AF with aberrancy. continue metoprolol either way, in light of EF<30%, he will need to f/u with cardiology to potentially discuss ICD placement (23) Hypomagnesemia: Plan: replaced (24) Proteinuria: Plan: protein on u/a 2-3+ since early 2022 concerning for nephropathy could be a reason for refractory edema of his legs cont ISAIAS inhibitor Plan left message for Dorie Monday, sister, on her voicemail 06/26/23 finally did connect with Monday on 06/28 -- extensive, lengthy update given to Ms Monday with current problems, plan of care, potential need for intervention of b/l leg PAD, etc Ms Monday lives in [place] during the winter Spoke with Henna Davis, daughter in law, by phone ([phone]) on 06/30/23 extensive update given spoke with pt's son Ajay ([phone]) on 07/03/23- extensive update given needs rehab - dispo planning - lack of bed availability at various facilities remains an issue Admission and Anticipated Discharge Date Admission Date: June 19, 2023 Subjective acute epistaxis this morning agitated, c/o nose being held, wants to go home, persistent confusion Physical Exam 2 Physical Exam: PHYSICAL EXAMINATION Last 24h vital signs reviewed, see documentation in flowsheet General: agitated, disheveled HEENT: moderate but persistent epistaxis from anterior R nare Lungs: Normal respiratory effort. Clear to auscultation bilaterally. No RRW Heart: Regular rate and rhythm, no murmurs. No JVD Abdomen: Soft, nontender, nondistended. Bowel sounds present. Extremities: Warm, dry, well-perfused. No extremity edema. Neuro: Alert and oriented x 1, intermittently agitated and uncooperative, face symmetric, moves 4 extremities well Psych: agitated behavior Results & Data Results & Data Vital Signs (Past 12 Hours) Vital Signs Temp Pulse Pulse Resp BP BP Pulse Ox 07/05/23 14:54 36.8 C 70 20 125/78 98 07/05/23 11:04 36.6 C 81 20 110/73 93 07/05/23 07:15 36.8 C 78 18 111/78 97 O2 Del Method 07/05/23 14:54 07/05/23 11:04 Room Air 07/05/23 07:15 Room Air Laboratory Results 06/29/23 08:10 07/04/23 06:20 PG Care Time/CCT Total # of Minutes Spent Total Time Spent with Patient: I spent 65 minutes today on clincial care activities including reviewing vitals, three bedside visits due to severe epistaxis, writing orders, discussions with bedside RNs, documentation Coding Level of Care Code 12824 SUB INP/OBS CARE 50MIN Diagnoses Acute anterior epistaxis R04.0 Pneumonia J18.9 CHF (congestive heart failure) I50.9 Acute encephalopathy G93.40 Thiamine deficiency E51.9 PAD (peripheral artery disease) I73.9 Fall W19.XXXA Alcohol abuse F10.10 Acute hyponatremia E87.1 Abnormal LFTs R79.89 T2DM (type 2 diabetes mellitus) E11.9 Elevated troponin R77.8 PAF (paroxysmal atrial fibrillation) I48.0 HTN (hypertension) I10 HLD (hyperlipidemia) E78.5 COPD (chronic obstructive pulmonary disease) J44.9 Hypothyroidism E03.9 GERD (gastroesophageal reflux disease) K21.9 CAD (coronary atherosclerotic disease) I25.10 Anemia D64.9 Urine retention R33.9 NSVT (nonsustained ventricular tachycardia) I47.29 Hypomagnesemia E83.42 Proteinuria R80.9
[2023-07-05] MEDS: AMOXICILLIN/CLAVULANATE 875 MG TAB PO SCH (17:56)
[2023-07-05] MEDS: OLANZapine 5 MG TABLET PO SCH (19:26)
[2023-07-06] MEDS: ACETAMINOPHEN 325 MG TAB PO PRN (00:41)
[2023-07-06] MEDS: CLOTRIMAZOLE 1% CR 15 GM TUBE EXT SCH ×3 (00:45→21:09)
[2023-07-06] MEDS: LEVOTHYROXINE SODIUM 75 MCG TABLET PO SCH (05:29)
[2023-07-06 08:29] LABS: Hematocrit (blood only) 34.6 % (42.0-52.0); Hemoglobin 11.5 g/dl (14.0-18.0); Mean Corpuscular Hemoglobin 29.7 pg (25.0-34.0); Mean Corpuscular Hgb Conc 33.2 g/dL (32.0-36.0); Mean Corpuscular Volume 89.4 fL (80.0-100.0); Platelet Count 103 K/uL (130-400); RDW Standard Deviation 58.2 fL (36.4-46.3); Red Blood Count 3.87 M/uL (4.70-6.10); White Blood Count 4.88 K/ul (4.8-10.8)
[2023-07-06 08:43] LABS: BUN Creatinine Ratio 21.7 (10-20); Calcium 8.7 mg/dl (8.6-10.3); Creatinine Clr Calc Pharmacy 63.7 ml/min; Est GFR (African American) 73.3 ml/min; Est GFR (Non-African American) 63.2 ml/min; Potassium 4.1 mmol/L (3.5-5.1)
[2023-07-06] MEDS: FLUTICASONE/VILANTEROL 200/25MCG 14 PUFFS/INHALER INH SCH (08:50)
[2023-07-06] MEDS: AMOXICILLIN/CLAVULANATE 875 MG TAB PO SCH ×2 (08:51→17:46)
[2023-07-06] MEDS: FUROSEMIDE 20 MG TAB PO SCH (08:52)
[2023-07-06] MEDS: FAMOTIDINE 20 MG TAB PO SCH ×2 (08:53→21:11)
[2023-07-06] MEDS: ATORVASTATIN 40 MG TAB PO SCH (08:54)
[2023-07-06] MEDS: OLANZAPINE 2.5 MG TAB PO SCH (08:54)
[2023-07-06] MEDS: POTASSIUM CHLORIDE CRTAB 20 MEQ TABCR PO SCH (08:57)
[2023-07-06] MEDS: METOPROLOL SUCC 50MG EXT REL TAB PO SCH ×2 (08:57→21:08)
[2023-07-06] MEDS: ENALAPRIL MALEATE 10 MG TAB PO SCH (08:58)
[2023-07-06] MEDS: THIAMINE HCL 100 MG TAB PO SCH ×2 (09:00→21:08)
[2023-07-06] MEDS: FOLIC ACID 1 MG TAB PO SCH (09:02)
[2023-07-06] MEDS: INSULIN ASPART PER UNIT CHARGE SC SCH ×4 (09:22→21:14)
[2023-07-06] MEDS: LANTUS PER UNIT CHARGE SC SCH (09:23)
--- NOTE | 2023-07-06 14:04 | Hospitalist Progress Note ---
Date of Service July 06, 2023 Assessment & Plan (1) Acute anterior epistaxis: Plan: Has had minor epistaxis almost daily per nursing staff AM 07/05 severe epistaxis not responsive to 3 rounds of 3 squirts of afrin and prolonged holding pressure, plavix and apixaban held, placed rhinorocket augmentin bid for sinusitis prophylaxis Assess for removal in 24-48h -CBC reviewed Hct probably down 1-3 points but large variation in prior Hct checks. melena stool today result of swallowed blood. Acute agitation related to his dementia and epistaxis with nasal packing - persisted throughout the day 07/05, still frequently trying to reach to nose and pick or remove packing thus continues to require bilateral soft wrist restraints, discussed with RN and renewed order -requires soft wrist restraints to prevent him from pulling out the nasal packing -continue olanzapine 2.5 mg q8h PRN in addition to scheduled dosing. severe agitation 07/05 responded to 5 mg IM x 1 (2) Pneumonia: Plan: 06/26/23 cxr with findings concerning for pneumonia. Completed 4 days of zosyn then 3 days of ceftin. Completed 4 days of IV zyvox then 3 days of PO zyvox. Course completed - pneumonia clinically resolved. (3) CHF (congestive heart failure): Plan: Most recent echo on 05/12/2023 revealed LVEF of 25-30%, elevated RVSP at 4050mmHg; mild to moderate gay valvular regurgitation cont metoprolol succinate increased to 50mg BID due to near-daily runs of NSVT (vs a.fib w/ abberancy) cont enalapril 10mg daily cont lasix resumed at reduced dose of 20 mg daily -BMP reviewed 07/06 and Cr back at baseline 1.15 appears compensated except for LE edema attempts at trying to increase his diuretics usually leads to a rise in creatinine shortly thereafter follows with [facility] cardiology needs f/u with them shortly after d/c to discuss possible ICD placement in future due to EF <30% (4) Acute encephalopathy: Plan: Ongoing. Waxing/waning his entire stay. But has improved. Patient has had altered mental status from the time of admission on 06/19. Altered MS earlier in the stay likely 2nd to etoh withdrawal +/- Wernicke's +/- sepsis +/- combination of factors. CT head 06/19/23 without acute findings. 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 He has large ventricles as well c/w significant atrophy. Certainly the prior CVAs, etc is a set-up for hospital delirium. Continue olanzapine at HS and AM olanzapine as well. Tolerating this regimen. (5) Thiamine deficiency: Plan: B1 level was 7 (8+normal). 2nd to etoh abuse. I am suspicious he has Wernicke's. Family reports he has had confusion for months. Confusion has been present entire admission. This is despite Rx of all medical issues. He continues to confabulate. He has received high dose thiamine earlier in the stay. Now on basal thiamine supplementation 200mg BID. Ultimately would decrease to 100mg BID. (6) PAD (peripheral artery disease): Plan: s/p arteriogram 06/28/[address] Moreno -- see his full procedure report SEVERE PAD of both legs with compromised flow below the knees b/l Dr Moreno does not feel intervention could be attempted at [facility] he would need tertiary care center for such I discussed this with his sister by phone PM of 06/28 Cont statin Has been on apixaban and plavix since 02/2023 per review of fill reports Spoke with Dr Elida Carter, vascular surgery at [facility], on 06/30/23. I had pushed his arteriogram images via PACS to [place] after lengthy discussion with Dr Carter urgent or emergent Tx to [place] felt unnecessary we could refer to Dr Ventura locally OR to [facility] in [place] as outpatient denies any rest pain of his feet/legs, extremities often cool and can be dusky but no wounds discussed anticoagulation/antiplatelet with Dr. Moreno 07/06 with respect to the persistent/recurrent then severe epistaxis. Will stop plavix at this time and resume apixaban alone once current bleeding episode resolved (7) Fall: Plan: Prior to presentation. Fortunately no major injuries from this fall. Thought to have been 2nd to recent etoh use. By report he was found down with 12+ beer cans surrounding him on the floor. Can't rule out other causes of his fall - subacute CVA, B1 def, alcohol-induced peripheral neuropathy, cerebellar atrophy from etoh abuse, etc. PT, OT Of note - CPK on 06/19 was wnl. MRI brain w/o ICH. (8) Alcohol abuse: Plan: Known h/o alcoholism with heavy drinking just prior to admission. treated for alcohol withdrawal and resolved Thiamine level returned low - certainly could have Wernicke's. Replace. Of note - he did receive high-dose IV thiamine earlier in the stay. Cont thiamine 200mg BID. stopped gabapentin in case contributing to worsened mental status Cont folic acid supplementation. (9) Acute hyponatremia: Plan: Severe. Na level 118 at admission. Resolved. BMPs have remained stable. (10) Abnormal LFTs: Plan: Presumed 2nd to etoh use Can't rule out passive congestion from CHF Recent ammonia level wnl LFTs improved while here (11) T2DM (type 2 diabetes mellitus): Plan: Last A1c 7.4% on 05/06/2023 Glucose 143 on arrival Pharmacy is providing glycemic oversight BSG ACHS T2DM diet Cont basal-bolus regimen reviewed BG 07/06 and at goal (12) Elevated troponin: Plan: Troponin 67.2-->63.4 on arrival No chest pain, no signs of ACS Likely 2nd to myocardial demand ischemia in the setting of his fall, etc. (13) PAF (paroxysmal atrial fibrillation): Plan: EKG on arrival showed A-fib with RVR, now rate controlled Continue metoprolol has been on apixaban 5mg BID - currently held because of severe epistaxis (14) HTN (hypertension): Plan: BPs acceptable (15) HLD (hyperlipidemia): Plan: Continue atorvastatin (16) COPD (chronic obstructive pulmonary disease): Plan: Continue home inhalers as needed No evidence of exacerbation at this time (17) Hypothyroidism: Plan: Continue levothyroxine TSH mildly elevated last 2 checks thus increased synthroid to 75mcg daily Repeat TSH in 6 weeks as outpatient (18) GERD (gastroesophageal reflux disease): Plan: Continue famotidine (19) CAD (coronary atherosclerotic disease): Plan: Hx of cardiac cath on 02/22/23 - Summary: 1. Moderate nonobstructive multivessel coronary artery disease 30% heavily calcified distal left main by IVUS 40-50% heavily calcified ostial circumflex by IVUS (nonobstructive by IFR 0.95). 30% mid LAD in-stent restenosis (nonobstructive by IFR 0.95). Jailed D2 60 to 70% ostial Medical management advised at that time Continue metoprolol, atorvastatin, apixaban, plavix stopped as above due to recurrent epistaxis (20) Anemia: Plan: H/H stable -AM CBC stable (21) Urine retention: Plan: Perez catheter placed at time of admission Has been removed and voiding spontaneously since discontinuation (22) NSVT (nonsustained ventricular tachycardia): Plan: has frequent episodes of NSVT vs AF with aberrancy. continue metoprolol either way, in light of EF<30%, he will need to f/u with cardiology to potentially discuss ICD placement (23) Hypomagnesemia: Plan: replaced (24) Proteinuria: Plan: protein on u/a 2-3+ since early 2022 concerning for nephropathy could be a reason for refractory edema of his legs cont ISAIAS inhibitor Plan left message for Dorie Monday, sister, on her voicemail 06/26/23 finally did connect with Monday on 06/28 -- extensive, lengthy update given to Ms Monday with current problems, plan of care, potential need for intervention of b/l leg PAD, etc Ms Monday lives in [place] during the winter Spoke with Henna Davis, daughter in law, by phone ([phone]) on 06/30/23 extensive update given spoke with pt's son Ajay ([phone]) on 07/03/23- extensive update given needs rehab - dispo planning - lack of bed availability at various facilities remains an issue Admission and Anticipated Discharge Date Admission Date: June 19, 2023 Subjective Less agitated this am, nasal packing still in place, no further oozing from R nare, had melena stool today. No shortness of breath chest or abdominal pain. Physical Exam 2 Physical Exam: PHYSICAL EXAMINATION Last 24h vital signs reviewed, see documentation in flowsheet General: calmer, sitting in bed, bilateral soft wrist restraints HEENT: R nare packed with rhinorocket, crusted blood, no oozing Lungs: Normal respiratory effort. Clear to auscultation bilaterally. No RRW Heart: Regular rate and rhythm, no murmurs. No JVD Abdomen: Soft, nontender, nondistended. Bowel sounds present. Extremities: Warm, dry, cool hands and feet without wounds. No extremity edema. Neuro: Alert and oriented x 1, remains confused, less agitated but still intermittently agitated and uncooperative, face symmetric, moves 4 extremities well Psych: Results & Data Results & Data Vital Signs (Past 12 Hours) Vital Signs Temp Pulse Resp BP Pulse Ox O2 Del Method 07/06/23 07:25 Room Air 07/06/23 07:11 36.4 C L 89 18 125/63 98 Room Air Laboratory Results 07/06/23 07:59 07/06/23 07:59 PG Care Time/CCT Total # of Minutes Spent Total Time Spent with Patient: Total time spent is greater than 50% in coordination of care (as documented) at patient's floor/unit and/or counseling patient: Coding Level of Care Code 50336 SUB INP/OBS CARE 2/35MIN Diagnoses Acute anterior epistaxis R04.0 Pneumonia J18.9 CHF (congestive heart failure) I50.9 Acute encephalopathy G93.40 Thiamine deficiency E51.9 PAD (peripheral artery disease) I73.9 Fall W19.XXXA Alcohol abuse F10.10 Acute hyponatremia E87.1 Abnormal LFTs R79.89 T2DM (type 2 diabetes mellitus) E11.9 Elevated troponin R77.8 PAF (paroxysmal atrial fibrillation) I48.0 HTN (hypertension) I10 HLD (hyperlipidemia) E78.5 COPD (chronic obstructive pulmonary disease) J44.9 Hypothyroidism E03.9 GERD (gastroesophageal reflux disease) K21.9 CAD (coronary atherosclerotic disease) I25.10 Anemia D64.9 Urine retention R33.9 NSVT (nonsustained ventricular tachycardia) I47.29 Hypomagnesemia E83.42 Proteinuria R80.9
[2023-07-06] MEDS: OLANZapine 5 MG TABLET PO SCH (21:08)
[2023-07-07] MEDS: LEVOTHYROXINE SODIUM 75 MCG TABLET PO SCH (04:53)
[2023-07-07] MEDS: ACETAMINOPHEN 325 MG TAB PO PRN (05:27)
[2023-07-07] MEDS ORDERED: ONDANSETRON 4 MG OD TAB PO STA (06:33)
[2023-07-07] MEDS: INSULIN ASPART PER UNIT CHARGE SC SCH ×4 (08:59→21:21)
[2023-07-07] MEDS: METOPROLOL SUCC 50MG EXT REL TAB PO SCH ×2 (09:04→21:19)
[2023-07-07] MEDS: THIAMINE HCL 100 MG TAB PO SCH ×2 (09:04→21:18)
[2023-07-07] MEDS: FOLIC ACID 1 MG TAB PO SCH (09:04)
[2023-07-07] MEDS: FUROSEMIDE 20 MG TAB PO SCH (09:04)
[2023-07-07] MEDS: ENALAPRIL MALEATE 10 MG TAB PO SCH (09:05)
[2023-07-07] MEDS: ATORVASTATIN 40 MG TAB PO SCH (09:05)
[2023-07-07] MEDS: OLANZAPINE 2.5 MG TAB PO SCH (09:05)
[2023-07-07] MEDS: FLUTICASONE/VILANTEROL 200/25MCG 14 PUFFS/INHALER INH SCH (09:06)
[2023-07-07] MEDS: AMOXICILLIN/CLAVULANATE 875 MG TAB PO SCH (09:06)
[2023-07-07] MEDS: CLOTRIMAZOLE 1% CR 15 GM TUBE EXT SCH ×2 (09:07→21:18)
[2023-07-07] MEDS: LANTUS PER UNIT CHARGE SC SCH (09:25)
[2023-07-07] MEDS: FAMOTIDINE 20 MG TAB PO SCH ×2 (09:28→21:19)
[2023-07-07] MEDS: POTASSIUM CHLORIDE CRTAB 20 MEQ TABCR PO SCH (09:28)
[2023-07-07] MEDS: TAMSULOSIN HCL 0.4 MG CAP PO SCH (10:32)
--- NOTE | 2023-07-07 13:43 | Hospitalist Progress Note ---
Date of Service July 07, 2023 Assessment & Plan (1) Acute anterior epistaxis: Plan: Has had minor epistaxis almost daily per nursing staff AM 07/05 severe epistaxis not responsive to 3 rounds of 3 squirts of afrin and prolonged holding pressure, plavix and apixaban held, placed rhinorocket augmentin bid for sinusitis prophylaxis - stop since packing is out He removed the rhinorocket this AM on his own, has not rebled thus far, requiring mitts today to prevent ongoing picking -melena stool 07/06 result of swallowed blood -AM CBC -consider resume apixaban tomorrow (2) Pneumonia: Plan: 06/26/23 cxr with findings concerning for pneumonia. Completed 4 days of zosyn then 3 days of ceftin. Completed 4 days of IV zyvox then 3 days of PO zyvox. Course completed - pneumonia clinically resolved. (3) CHF (congestive heart failure): Plan: Most recent echo on 05/12/2023 revealed LVEF of 25-30%, elevated RVSP at 4050mmHg; mild to moderate gay valvular regurgitation cont metoprolol succinate increased to 50mg BID due to near-daily runs of NSVT (vs a.fib w/ abberancy) cont enalapril 10mg daily cont lasix resumed at reduced dose of 20 mg daily -BMP reviewed 07/06 and Cr back at baseline 1.15 -AM BMP appears compensated except for LE edema attempts at trying to increase his diuretics usually leads to a rise in creati nine shortly thereafter follows with [facility] cardiology needs f/u with them shortly after d/c to discuss possible ICD placement in future due to EF <30% (4) Acute encephalopathy: Plan: Ongoing. Waxing/waning his entire stay. But has improved. Patient has had altered mental status from the time of admission on 06/19. Altered MS earlier in the stay likely 2nd to etoh withdrawal +/- Wernicke's +/- sepsis +/- combination of factors. CT head 06/19/23 without acute findings. 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 He has large ventricles as well c/w significant atrophy. Certainly the prior CVAs, etc is a set-up for hospital delirium. Continue olanzapine at HS and AM olanzapine as well. Tolerating this regimen. (5) Thiamine deficiency: Plan: B1 level was 7 (8+normal). 2nd to etoh abuse. I am suspicious he has Wernicke's. Family reports he has had confusion for months. Confusion has been present entire admission. This is despite Rx of all medical issues. He continues to confabulate. He has received high dose thiamine earlier in the stay. Now on basal thiamine supplementation 200mg BID. Ultimately would decrease to 100mg BID. (6) PAD (peripheral artery disease): Plan: s/p arteriogram 06/28/[address] Moreno -- see his full procedure report SEVERE PAD of both legs with compromised flow below the knees b/l Dr Moreno does not feel intervention could be attempted at [facility] he would need tertiary care center for such I discussed this with his sister by phone PM of 06/28 Cont statin Has been on apixaban and plavix since 02/2023 per review of fill reports Spoke with Dr Elida Carter, vascular surgery at [facility], on 06/30/23. I had pushed his arteriogram images via PACS to [place] after lengthy discussion with Dr Carter urgent or emergent Tx to [place] felt unnecessary we could refer to Dr Ventura locally OR to [facility] in [place] as outpatient denies any rest pain of his feet/legs, extremities often cool and can be dusky but no wounds discussed anticoagulation/antiplatelet with Dr. Moreno 07/06 with respect to the persistent/recurrent then severe epistaxis. Will stop plavix at this time and resume apixaban alone once current bleeding episode resolved (7) Fall: Plan: Prior to presentation. Fortunately no major injuries from this fall. Thought to have been 2nd to recent etoh use. By report he was found down with 12+ beer cans surrounding him on the floor. Can't rule out other causes of his fall - subacute CVA, B1 def, alcohol-induced peripheral neuropathy, cerebellar atrophy from etoh abuse, etc. PT, OT Of note - CPK on 06/19 was wnl. MRI brain w/o ICH. (8) Alcohol abuse: Plan: Known h/o alcoholism with heavy drinking just prior to admission. treated for alcohol withdrawal and resolved Thiamine level returned low - certainly could have Wernicke's. Replace. Of note - he did receive high-dose IV thiamine earlier in the stay. Cont thiamine 200mg BID. stopped gabapentin in case contributing to worsened mental status Cont folic acid supplementation. (9) Acute hyponatremia: Plan: Severe. Na level 118 at admission. Resolved. BMPs have remained stable. (10) Abnormal LFTs: Plan: Presumed 2nd to etoh use Can't rule out passive congestion from CHF Recent ammonia level wnl LFTs improved while here -AM LFT (11) T2DM (type 2 diabetes mellitus): Plan: Last A1c 7.4% on 05/06/2023 Glucose 143 on arrival Pharmacy is providing glycemic oversight BSG ACHS T2DM diet Cont basal-bolus regimen reviewed BG 07/06 and at goal (12) Elevated troponin: Plan: Troponin 67.2-->63.4 on arrival No chest pain, no signs of ACS Likely 2nd to myocardial demand ischemia in the setting of his fall, etc. (13) PAF (paroxysmal atrial fibrillation): Plan: EKG on arrival showed A-fib with RVR, now rate controlled Continue metoprolol has been on apixaban 5mg BID - currently held because of severe epistaxis (14) HTN (hypertension): Plan: BPs acceptable (15) HLD (hyperlipidemia): Plan: Continue atorvastatin (16) COPD (chronic obstructive pulmonary disease): Plan: Continue home inhalers as needed No evidence of exacerbation at this time (17) Hypothyroidism: Plan: Continue levothyroxine TSH mildly elevated last 2 checks thus increased synthroid to 75mcg daily Repeat TSH in 6 weeks as outpatient (18) GERD (gastroesophageal reflux disease): Plan: Continue famotidine (19) CAD (coronary atherosclerotic disease): Plan: Hx of cardiac cath on 02/22/23 - Summary: 1. Moderate nonobstructive multivessel coronary artery disease 30% heavily calcified distal left main by IVUS 40-50% heavily calcified ostial circumflex by IVUS (nonobstructive by IFR 0.95). 30% mid LAD in-stent restenosis (nonobstructive by IFR 0.95). Jailed D2 60 to 70% ostial Medical management advised at that time Continue metoprolol, atorvastatin, apixaban, plavix stopped as above due to recurrent epistaxis (20) Anemia: Plan: H/H stable -AM CBC stable (21) Urine retention: Plan: Perez catheter placed at time of admission Subsequently removed and was voiding spontaneously since discontinuation until night of 07/06 had abdominal pain found to be in acute retention. Had I/O cath -continue monitor PVR -start flomax 07/07 AM for presumed BPH (22) NSVT (nonsustained ventricular tachycardia): Plan: has frequent episodes of NSVT vs AF with aberrancy. continue metoprolol either way, in light of EF<30%, he will need to f/u with cardiology to potentially discuss ICD placement (23) Hypomagnesemia: Plan: replaced (24) Proteinuria: Plan: protein on u/a 2-3+ since early 2022 concerning for nephropathy could be a reason for refractory edema of his legs cont ISAIAS inhibitor Plan left message for Dorie Monday, sister, on her voicemail 06/26/23 finally did connect with Ms Monday on 06/28 -- extensive, lengthy update given to Ms Monday with current problems, plan of care, potential need for intervention of b/l leg PAD, etc Ms Monday lives in [place] during the winter Spoke with Henna Davis, daughter in law, by phone ([phone]) on 06/30/23 extensive update given spoke with pt's son Ajay ([phone]) on 07/03/23- extensive update given left voicemail 07/07 needs rehab - dispo planning - lack of bed availability at various facilities remains an issue Admission and Anticipated Discharge Date Admission Date: June 19, 2023 Subjective remains confused. managed to pull out his rhinorocket this am despite soft wrist restraints and 1:1. Fortunately epistaxis has not recurred. Denies CP and SOB. Physical Exam Physical Exam: PHYSICAL EXAMINATION Last 24h vital signs reviewed, see documentation in flowsheet Exam unchanged 07/07: General: calm, sitting in bed, bilateral soft wrist restraints HEENT: R nare packed with rhinorocket, crusted blood, no oozing Lungs: Normal respiratory effort. Clear to auscultation bilaterally. No RRW Heart: Regular rate and rhythm, no murmurs. No JVD Abdomen: Soft, nontender, nondistended. Bowel sounds present. Extremities: Warm, dry, cool hands and feet persist. No extremity edema. Neuro: Alert and oriented x 1, remains confused, intermittently agitated and uncooperative but not at the moment, face symmetric, moves 4 extremities well Results & Data Results & Data Vital Signs (Past 12 Hours) Vital Signs Temp Pulse Resp BP Pulse Ox O2 Del Method 07/07/23 09:03 86 147/73 H 07/07/23 07:30 Room Air 07/07/23 06:20 36.7 C 86 18 129/73 95 Room Air PG Care Time/CCT Total # of Minutes Spent Total Time Spent with Patient: Total time spent is greater than 50% in coordination of care (as documented) at patient's floor/unit and/or counseling patient: Coding Level of Care Code 47716 SUB INP/OBS CARE 2/35MIN Diagnoses Acute anterior epistaxis R04.0 Pneumonia J18.9 CHF (congestive heart failure) I50.9 Acute encephalopathy G93.40 Thiamine deficiency E51.9 PAD (peripheral artery disease) I73.9 Fall W19.XXXA Alcohol abuse F10.10 Acute hyponatremia E87.1 Abnormal LFTs R79.89 T2DM (type 2 diabetes mellitus) E11.9 Elevated troponin R77.8 PAF (paroxysmal atrial fibrillation) I48.0 HTN (hypertension) I10 HLD (hyperlipidemia) E78.5 COPD (chronic obstructive pulmonary disease) J44.9 Hypothyroidism E03.9 GERD (gastroesophageal reflux disease) K21.9 CAD (coronary atherosclerotic disease) I25.10 Anemia D64.9 Urine retention R33.9 NSVT (nonsustained ventricular tachycardia) I47.29 Hypomagnesemia E83.42 Proteinuria R80.9
[2023-07-07] MEDS: OLANZapine 5 MG TABLET PO SCH (21:19)
[2023-07-08] MEDS: OLANZapine ZYDIS 5 MG ORALLY DIS. TAB PO PRN (05:10)
[2023-07-08] MEDS: LEVOTHYROXINE SODIUM 75 MCG TABLET PO SCH (05:21)
[2023-07-08 06:50] LABS: Alanine Aminotransferase 20 U/L (7-52); Albumin Globulin Ratio 1.1 (0.9-2); Albumin Level 3.2 gm/dl (3.4-5.0); Alkaline Phosphatase 106 U/L (34-104); Anion Gap 10 (3-11); BUN Creatinine Ratio 22.5 (10-20); Bilirubin,Total 0.7 mg/dl (0.2-1.0); Blood Urea Nitrogen 34 mg/dl (6-23); Calcium 8.3 mg/dl (8.6-10.3); Carbon Dioxide 20 mmol/L (21-32); Chloride 106 mmol/L (98-107); Creatinine Clr Calc Pharmacy 48.5 ml/min; Est GFR (African American) 52.7 ml/min; Est GFR (Non-African American) 45.5 ml/min; Globulin 2.8 gm/dl (2.5-4.0); Glucose 130 mg/dl (70-99(Fasting)); Sodium 136 mmol/L (136-145)
[2023-07-08] MEDS: ENALAPRIL MALEATE 10 MG TAB PO SCH (07:32)
[2023-07-08] MEDS: THIAMINE HCL 100 MG TAB PO SCH ×2 (07:35→20:49)
[2023-07-08] MEDS: FOLIC ACID 1 MG TAB PO SCH (07:35)
[2023-07-08] MEDS: CLOTRIMAZOLE 1% CR 15 GM TUBE EXT SCH ×2 (07:35→20:48)
[2023-07-08] MEDS: FUROSEMIDE 20 MG TAB PO SCH (07:35)
[2023-07-08] MEDS: ATORVASTATIN 40 MG TAB PO SCH (07:35)
[2023-07-08] MEDS: TAMSULOSIN HCL 0.4 MG CAP PO SCH (07:37)
[2023-07-08] MEDS: METOPROLOL SUCC 50MG EXT REL TAB PO SCH ×2 (07:37→20:48)
[2023-07-08] MEDS: OLANZAPINE 2.5 MG TAB PO SCH (07:38)
[2023-07-08] MEDS: FLUTICASONE/VILANTEROL 200/25MCG 14 PUFFS/INHALER INH SCH (07:40)
[2023-07-08] MEDS: FAMOTIDINE 20 MG TAB PO SCH (07:43)
[2023-07-08 07:44] LABS: Potassium 4.3 mmol/L (3.5-5.1)
[2023-07-08] MEDS: POTASSIUM CHLORIDE CRTAB 20 MEQ TABCR PO SCH (07:44)
[2023-07-08 07:48] LABS: Hematocrit (blood only) 33.5 % (42.0-52.0); Hemoglobin 11.1 g/dl (14.0-18.0); Mean Corpuscular Hemoglobin 29.4 pg (25.0-34.0); Mean Corpuscular Hgb Conc 33.1 g/dL (32.0-36.0); Mean Corpuscular Volume 88.9 fL (80.0-100.0); Mean Platelet Volume 11.4 fL (9.4-12.4); Platelet Count 91 K/uL (130-400); RDW Coefficient of Variation 17.6 % (11.5-14.5); RDW Standard Deviation 57.2 fL (36.4-46.3); Red Blood Count 3.77 M/uL (4.70-6.10); White Blood Count 6.21 K/ul (4.8-10.8)
[2023-07-08] MEDS: LANTUS PER UNIT CHARGE SC SCH (08:51)
[2023-07-08] MEDS: INSULIN ASPART PER UNIT CHARGE SC SCH (08:51)
[2023-07-08 09:49] LABS: Ferritin 285.6 ng/ml (8-388)
[2023-07-08] MEDS ORDERED: OLANZapine ZYDIS 5 MG ORALLY DIS. TAB PO ONE (10:22)
[2023-07-08] MEDS: ACETAMINOPHEN 325 MG TAB PO PRN (11:35)
[2023-07-08] MEDS: NITROGLYCERIN SL 0.4 MG/TAB TAB SL PRN (14:38)
--- NOTE | 2023-07-08 15:06 | Hospitalist Progress Note ---
Date of Service July 08, 2023 Assessment & Plan (1) Chest pain: Plan: c/o chest pain afternoon 07/08, RN administered SL nitro -EKG ordered (2) Acute anterior epistaxis: Plan: Has had minor epistaxis almost daily per nursing staff AM 07/05 severe epistaxis not responsive to 3 rounds of 3 squirts of afrin and prolonged holding pressure, plavix and apixaban held, placed rhinorocket He removed the rhinorocket 07/07 AM on his own, has not rebled thus far, requiring mitts today to prevent ongoing picking and from pulling on his cordoba catheter -melena stool 07/06 result of swallowed blood -CBC with stable hematocrit, thrombocytopenia persists at 91 -consider resume apixaban tomorrow (3) Pneumonia: Plan: 06/26/23 cxr with findings concerning for pneumonia. Completed 4 days of zosyn then 3 days of ceftin. Completed 4 days of IV zyvox then 3 days of PO zyvox. Course completed - pneumonia clinically resolved. (4) CHF (congestive heart failure): Plan: Most recent echo on 05/12/2023 revealed LVEF of 25-30%, elevated RVSP at 4050mmHg; mild to moderate gay valvular regurgitation cont metoprolol succinate increased to 50mg BID due to near-daily runs of NSVT (vs a.fib w/ abberancy) cont enalapril 10mg daily cont lasix resumed at reduced dose of 20 mg daily -BMP reviewed 07/06 and Cr 1.15, 07/08 back to 1.5 (which has been typical), potassium normal - continue same dose of lasix appears compensated except for LE edema which has been slowly resolving this week attempts at trying to increase his diuretics usually leads to a rise in creatinine shortly thereafter follows with [facility] cardiology needs f/u with them shortly after d/c to discuss possible ICD placement in future due to EF <30% (5) Acute encephalopathy: Plan: Ongoing. Waxing/waning his entire stay. But has improved. Patient has had altered mental status from the time of admission on 06/19. Altered MS earlier in the stay likely 2nd to etoh withdrawal +/- Wernicke's +/- sepsis +/- combination of factors. CT head 06/19/23 without acute findings. 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 He has large ventricles as well c/w significant atrophy. Certainly the prior CVAs, etc is a set-up for hospital delirium. Continue olanzapine - increased to 5 mg bid because of significant daytime agitation this week Tolerating this regimen. (6) Thiamine deficiency: Plan: B1 level was 7 (8+normal). 2nd to etoh abuse. I am suspicious he has Wernicke's. Family reports he has had confusion for months. Confusion has been present entire admission. This is despite Rx of all medical issues. He continues to confabulate. He has received high dose thiamine earlier in the stay. Now on basal thiamine supplementation 200mg BID. Ultimately would decrease to 100mg BID. (7) PAD (peripheral artery disease): Plan: s/p arteriogram 06/28/[address] Moreno -- see his full procedure report SEVERE PAD of both legs with compromised flow below the knees b/l Dr Moreno does not feel intervention could be attempted at [facility] he would need tertiary care center for such I discussed this with his sister by phone PM of 06/28 Cont statin Has been on apixaban and plavix since 02/2023 per review of fill reports Spoke with Dr Elida Carter, vascular surgery at [facility], on 06/30/23. I had pushed his arteriogram images via PACS to [place] after lengthy discussion with Dr Carter urgent or emergent Tx to [place] felt unnecessary we could refer to Dr Ventura locally OR to [facility] in [place] as outpatient denies any rest pain of his feet/legs, extremities often cool and can be dusky but no wounds discussed anticoagulation/antiplatelet with Dr. Moreno 07/06 with respect to the persistent/recurrent then severe epistaxis. Will stop plavix at this time and resume apixaban alone once current bleeding episode resolved (8) Fall: Plan: Prior to presentation. Fortunately no major injuries from this fall. Thought to have been 2nd to recent etoh use. By report he was found down with 12+ beer cans surrounding him on the floor. Can't rule out other causes of his fall - subacute CVA, B1 def, alcohol-induced peripheral neuropathy, cerebellar atrophy from etoh abuse, etc. PT, OT Of note - CPK on 06/19 was wnl. MRI brain w/o ICH. (9) Alcohol abuse: Plan: Known h/o alcoholism with heavy drinking just prior to admission. treated for alcohol withdrawal and resolved Thiamine level returned low - certainly could have Wernicke's. Replace. Of note - he did receive high-dose IV thiamine earlier in the stay. Cont thiamine 200mg BID. stopped gabapentin in case contributing to worsened mental status Cont folic acid supplementation. (10) Acute hyponatremia: Plan: Severe. Na level 118 at admission. Resolved. BMPs have remained stable. Na 136 on 07/08 -continue fluid restriction and furosemide (11) Abnormal LFTs: Plan: Presumed 2nd to etoh use or passive congestion from CHF Recent ammonia level wnl LFTs improved while here -LFT 07/08 normal (12) T2DM (type 2 diabetes mellitus): Plan: Last A1c 7.4% on 05/06/2023 Staff having difficulty with frequent insulin administrations and accuchecks because of current agitation Reviewed and he is needing minimal insulin (3u glargine and few doses of aspart daily, often only 1 unit). risk>benefit of this -continue diabetic diet -resumed empaglifozin -stopped insulins -BG check qAM (13) Elevated troponin: Plan: Troponin 67.2-->63.4 on arrival No chest pain, no signs of ACS Likely 2nd to myocardial demand ischemia in the setting of his fall, etc. (14) PAF (paroxysmal atrial fibrillation): Plan: EKG on arrival showed A-fib with RVR, now rate controlled Continue metoprolol has been on apixaban 5mg BID - currently held because of severe epistaxis (15) HTN (hypertension): Plan: BPs acceptable (16) HLD (hyperlipidemia): Plan: Continue atorvastatin (17) COPD (chronic obstructive pulmonary disease): Plan: Continue home inhalers as needed No evidence of exacerbation at this time (18) Hypothyroidism: Plan: Continue levothyroxine TSH mildly elevated last 2 checks thus increased synthroid to 75mcg daily Repeat TSH in 6 weeks as outpatient (19) GERD (gastroesophageal reflux disease): Plan: Continue famotidine (20) CAD (coronary atherosclerotic disease): Plan: Hx of cardiac cath on 02/22/23 - Summary: 1. Moderate nonobstructive multivessel coronary artery disease 30% heavily calcified distal left main by IVUS 40-50% heavily calcified ostial circumflex by IVUS (nonobstructive by IFR 0.95). 30% mid LAD in-stent restenosis (nonobstructive by IFR 0.95). Jailed D2 60 to 70% ostial Medical management advised at that time Continue metoprolol, atorvastatin, apixaban, plavix stopped as above due to recurrent epistaxis (21) Anemia: Plan: H/H stable 07/08 (22) Urine retention: Plan: Cordoba catheter placed at time of admission Subsequently removed and was voiding spontaneously since discontinuation until night of 07/06 had abdominal pain found to be in acute retention. Had I/O cath -continue monitor PVR -start flomax 12 AM for presumed BPH -voiding trial 07/10 (23) NSVT (nonsustained ventricular tachycardia): Plan: has frequent episodes of NSVT vs AF with aberrancy. continue metoprolol either way, in light of EF<30%, he will need to f/u with cardiology to potentially discuss ICD placement (24) Hypomagnesemia: Plan: replaced (25) Proteinuria: Plan: protein on u/a 2-3+ since early 2022 concerning for nephropathy could be a reason for refractory edema of his legs cont ISAIAS inhibitor Plan left message for Dorie Monday, sister, on her voicemail 06/26/23 finally did connect with Ms Monday on 06/28 -- extensive, lengthy update given to Ms Monday with current problems, plan of care, potential need for intervention of b/l leg PAD, etc Ms Monday lives in [place] during the winter Spoke with Henna Davis, daughter in law, by phone ([phone]) on 06/30/23 extensive update given spoke with pt's son Ajay ([phone]) on 07/03/23- extensive update given left voicemail 07/07 needs rehab - dispo planning - lack of bed availability at various facilities remains an issue Admission and Anticipated Discharge Date Admission Date: June 19, 2023 Subjective this morning agitated and yelling a lot. was difficult to administer his premeal aspart. no further nosebleeding. has consistently been trying to pull his cordoba thus still in mitts Physical Exam 2 Physical Exam: PHYSICAL EXAMINATION Last 24h vital signs reviewed, see documentation in flowsheet General: moderately agitated, wearing soft mitts HEENT: R nare without epistaxis Lungs: Normal respiratory effort. Clear to auscultation bilaterally. No RRW Heart: Regular rate and rhythm, no murmurs. No JVD Abdomen: Soft, nontender, nondistended. Bowel sounds present. Extremities: Warm, dry, cool hands and feet persist. No extremity edema. : cordoba catheter in place drainaing urine Neuro: Alert and oriented x 1, remains confused, agitated and yelling, face symmetric, moves 4 extremities vigorously Results & Data Results & Data Vital Signs (Past 12 Hours) Vital Signs Temp Pulse Resp BP Pulse Ox O2 Del Method 07/08/23 14:29 36.4 C L 80 16 137/78 92 Room Air 07/08/23 06:53 36.8 C 92 H 18 131/66 93 Room Air Laboratory Results 07/08/23 07:12 07/08/23 07:12 PG Care Time/CCT Total # of Minutes Spent Total Time Spent with Patient: Total time spent is greater than 50% in coordination of care (as documented) at patient's floor/unit and/or counseling patient: Coding Level of Care Code 29330 SUB INP/OBS CARE 2/35MIN Diagnoses Chest pain R07.9 Acute anterior epistaxis R04.0 Pneumonia J18.9 CHF (congestive heart failure) I50.9 Acute encephalopathy G93.40 Thiamine deficiency E51.9 PAD (peripheral artery disease) I73.9 Fall W19.XXXA Alcohol abuse F10.10 Acute hyponatremia E87.1 Abnormal LFTs R79.89 T2DM (type 2 diabetes mellitus) E11.9 Elevated troponin R77.8 PAF (paroxysmal atrial fibrillation) I48.0 HTN (hypertension) I10 HLD (hyperlipidemia) E78.5 COPD (chronic obstructive pulmonary disease) J44.9 Hypothyroidism E03.9 GERD (gastroesophageal reflux disease) K21.9 CAD (coronary atherosclerotic disease) I25.10 Anemia D64.9 Urine retention R33.9 NSVT (nonsustained ventricular tachycardia) I47.29 Hypomagnesemia E83.42 Proteinuria R80.9
[2023-07-08] MEDS ORDERED: ALUMINUM/MAGNESIUM SUSP 30 ML UDC PO STA (15:22)
[2023-07-08] MEDS: PANTOprazole 40 MG TAB PO SCH (17:24)
[2023-07-08] MEDS: OLANZapine 5 MG TABLET PO SCH (20:50)
[2023-07-09] MEDS: LEVOTHYROXINE SODIUM 75 MCG TABLET PO SCH (05:45)
[2023-07-09] MEDS: PANTOprazole 40 MG TAB PO SCH (07:38)
[2023-07-09] MEDS: OLANZapine 5 MG TABLET PO SCH ×2 (07:38→20:12)
[2023-07-09] MEDS: THIAMINE HCL 100 MG TAB PO SCH ×2 (07:39→20:12)
[2023-07-09] MEDS: EMPAGLIFLOZIN 10 MG TAB PO SCH (07:39)
[2023-07-09] MEDS: CLOTRIMAZOLE 1% CR 15 GM TUBE EXT SCH ×2 (07:39→20:13)
[2023-07-09] MEDS: FOLIC ACID 1 MG TAB PO SCH (07:40)
[2023-07-09] MEDS: ENALAPRIL MALEATE 10 MG TAB PO SCH (07:42)
[2023-07-09] MEDS: FUROSEMIDE 20 MG TAB PO SCH (07:43)
[2023-07-09] MEDS: METOPROLOL SUCC 50MG EXT REL TAB PO SCH ×2 (07:43→20:12)
[2023-07-09] MEDS: FLUTICASONE/VILANTEROL 200/25MCG 14 PUFFS/INHALER INH SCH (07:43)
[2023-07-09] MEDS: ATORVASTATIN 40 MG TAB PO SCH (07:44)
[2023-07-09] MEDS: TAMSULOSIN HCL 0.4 MG CAP PO SCH (07:45)
[2023-07-09] MEDS: POTASSIUM CHLORIDE CRTAB 20 MEQ TABCR PO SCH (07:51)
[2023-07-09] MEDS: APIXABAN 5 MG TABLET PO SCH ×2 (09:01→20:12)
[2023-07-09] MEDS: OLANZapine ZYDIS 5 MG ORALLY DIS. TAB PO PRN (15:39)
--- NOTE | 2023-07-09 16:29 | Hospitalist Progress Note ---
Date of Service July 09, 2023 Assessment & Plan (1) Chest pain: Plan: c/o chest pain afternoon 07/08, RN administered SL nitro, resolved quickly -EKG tracing reviewed on 07/08 - unchanged from previous with incomplete RBBB, septal Qs, PVCs, p waves not easily visible but regular with rate of 90 -chest pain episode was very brief and resolved quickly, did not recur -could have been angina episode but no e/o ACS, could have been noncardiac especially GI -changed pepcid to PPI (2) Acute anterior epistaxis: Plan: Has had minor epistaxis almost daily per nursing staff AM 07/05 severe epistaxis not responsive to 3 rounds of 3 squirts of afrin and prolonged holding pressure, plavix and apixaban held, placed rhinorocket He removed the rhinorocket 07/07 AM on his own, has not rebled thus far, requi ring mitts today to prevent ongoing picking and from pulling on his cordoba catheter -melena stool 07/06 result of swallowed blood -CBC with stable hematocrit, thrombocytopenia persists at 91 -resumed apixaban 07/09, monitor (3) Pneumonia: Plan: 06/26/23 cxr with findings concerning for pneumonia. Completed 4 days of zosyn then 3 days of ceftin. Completed 4 days of IV zyvox then 3 days of PO zyvox. Course completed - pneumonia clinically resolved. (4) CHF (congestive heart failure): Plan: Most recent echo on 05/12/2023 revealed LVEF of 25-30%, elevated RVSP at 4050mmHg; mild to moderate gay valvular regurgitation cont metoprolol succinate increased to 50mg BID due to near-daily runs of NSVT (vs a.fib w/ abberancy) cont enalapril 10mg daily lasix resumed at reduced dose of 20 mg daily, LE edema resolved over week of 07/04-07/09. May need to stop lasix now that he's back on empaglifozin -BMP reviewed 07/06 and Cr 1.15, 07/08 back to 1.5 (which has been typical), potassium normal - continue same dose of lasix -BMP in apx 48h follows with [facility] cardiology needs f/u with them shortly after d/c to discuss possible ICD placement in future due to EF <30% (5) Acute encephalopathy: Plan: Ongoing. Waxing/waning his entire stay. But has improved. Patient has had altered mental status from the time of admission on 06/19. Altered MS earlier in the stay likely 2nd to etoh withdrawal +/- Wernicke's +/- sepsis +/- combination of factors. CT head 06/19/23 without acute findings. 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 He has large ventricles as well c/w significant atrophy. Certainly the prior CVAs, etc is a set-up for hospital delirium. Continue olanzapine - increased to 5 mg bid because of significant daytime agitation this week Tolerating this regimen. (6) Thiamine deficiency: Plan: B1 level was 7 (8+normal). 2nd to etoh abuse. I am suspicious he has Wernicke's. Family reports he has had confusion for months. Confusion has been present entire admission. This is despite Rx of all medical issues. He continues to confabulate. He has received high dose thiamine earlier in the stay. Now on basal thiamine supplementation 200mg BID. Ultimately would decrease to 100mg BID. (7) PAD (peripheral artery disease): Plan: s/p arteriogram 06/28/[address] Moreno -- see his full procedure report SEVERE PAD of both legs with compromised flow below the knees b/l Dr Moreno does not feel intervention could be attempted at [facility] he would need tertiary care center for such I discussed this with his sister by phone PM of 06/28 Cont statin Has been on apixaban and plavix since 02/2023 per review of fill reports Spoke with Dr Elida Carter, vascular surgery at [facility], on 06/30/23. I had pushed his arteriogram images via PACS to [place] after lengthy discussion with Dr Carter urgent or emergent Tx to [place] felt unnecessary we could refer to Dr Ventura locally OR to [facility] in [place] as outpatient denies any rest pain of his feet/legs, extremities often cool and can be dusky but no wounds discussed anticoagulation/antiplatelet with Dr. Moreno 07/06 with respect to the persistent/recurrent then severe epistaxis. Stopped plavix and resumed apixaban alone (8) Fall: Plan: Prior to presentation. Fortunately no major injuries from this fall. Thought to have been 2nd to recent etoh use. By report he was found down with 12+ beer cans surrounding him on the floor. Can't rule out other causes of his fall - subacute CVA, B1 def, alcohol-induced peripheral neuropathy, cerebellar atrophy from etoh abuse, etc. PT, OT Of note - CPK on 06/19 was wnl. MRI brain w/o ICH. (9) Alcohol abuse: Plan: Known h/o alcoholism with heavy drinking just prior to admission. treated for alcohol withdrawal and resolved Thiamine level returned low - certainly could have Wernicke's. Replace. Of note - he did receive high-dose IV thiamine earlier in the stay. Cont thiamine po stopped gabapentin in case contributing to worsened mental status Cont folic acid supplementation. (10) Acute hyponatremia: Plan: Severe. Na level 118 at admission. Resolved. BMPs have remained stable. Na 136 on 07/08 -continue fluid restriction and furosemide (11) Abnormal LFTs: Plan: Presumed 2nd to etoh use or passive congestion from CHF Recent ammonia level wnl LFTs improved while here -LFT 07/08 normal (12) T2DM (type 2 diabetes mellitus): Plan: Last A1c 7.4% on 05/06/2023 Staff having difficulty with frequent insulin administrations and accuchecks bec ause of current agitation Reviewed and he is needing minimal insulin (3u glargine and few doses of aspart daily, often only 1 unit). risk>benefit of this -continue diabetic diet -resumed empaglifozin -stopped insulins -BG check qAM - at goal 07/09 (13) Elevated troponin: Plan: Troponin 67.2-->63.4 on arrival No chest pain, no signs of ACS Likely 2nd to myocardial demand ischemia in the setting of his fall, etc. (14) PAF (paroxysmal atrial fibrillation): Plan: EKG on arrival showed A-fib with RVR, now rate controlled Continue metoprolol apixaban 5mg BID (15) HTN (hypertension): Plan: BPs acceptable (16) HLD (hyperlipidemia): Plan: Continue atorvastatin (17) COPD (chronic obstructive pulmonary disease): Plan: Continue home inhalers as needed No evidence of exacerbation at this time (18) Hypothyroidism: Plan: Continue levothyroxine TSH mildly elevated last 2 checks thus increased synthroid to 75mcg daily Repeat TSH in 6 weeks as outpatient (19) GERD (gastroesophageal reflux disease): Plan: Continue famotidine (20) CAD (coronary atherosclerotic disease): Plan: Hx of cardiac cath on 02/22/23 - Summary: 1. Moderate nonobstructive multivessel coronary artery disease 30% heavily calcified distal left main by IVUS 40-50% heavily calcified ostial circumflex by IVUS (nonobstructive by IFR 0.95). 30% mid LAD in-stent restenosis (nonobstructive by IFR 0.95). Jailed D2 60 to 70% ostial Medical management advised at that time Continue metoprolol, atorvastatin, apixaban, plavix stopped as above due to recurrent epistaxis (21) Anemia: Plan: H/H stable 07/08 (22) Urine retention: Plan: Cordoba catheter placed at time of admission Subsequently removed and was voiding spontaneously since discontinuation until night of 07/06 had abdominal pain found to be in acute retention. Had I/O cath -continue monitor PVR -start flomax 07/07 AM for presumed BPH -voiding trial today - dc cordoba (23) NSVT (nonsustained ventricular tachycardia): Plan: has frequent episodes of NSVT vs AF with aberrancy. continue metoprolol either way, in light of EF<30%, he will need to f/u with cardiology to potentially discuss ICD placement (24) Hypomagnesemia: Plan: replaced (25) Proteinuria: Plan: protein on u/a 2-3+ since early 2022 concerning for nephropathy could be a reason for refractory edema of his legs cont ISAIAS inhibitor Plan left message for Dorie Monday, sister, on her voicemail 06/26/23 finally did connect with Ms Monday on 06/28 -- extensive, lengthy update given to Ms Monday with current problems, plan of care, potential need for intervention of b/l leg PAD, etc Ms Monday lives in [place] during the winter Spoke with Henna Davis, daughter in law, by phone ([phone]) on 06/30/23 extensive update given spoke with pt's son Ajay ([phone]) on 07/03/23- extensive update given left voicemail 07/07 needs rehab - dispo planning - lack of bed availability at various facilities remains an issue Admission and Anticipated Discharge Date Admission Date: June 19, 2023 Subjective not agitated today, mental status seem improved. no recurrent epistaxis. confused, unchanged. Physical Exam Physical Exam: PHYSICAL EXAMINATION Last 24h vital signs reviewed, see documentation in flowsheet General: calm right now, wearing soft mitts HEENT: R nare without epistaxis Lungs: CTAB no rrw Heart: reg no mrg Abdomen: s/nt/nd +BT Extremities: Warm, dry, cool hands and feet persist. small lesions with dark eschar on feet and toes. LE edema resolved : cordoba catheter clear yellow urine Neuro: Alert and oriented x 1, remains confused, some speech hard to understand, not currently agitated, face symmetric, moves 4 extremities well Results & Data Results & Data Vital Signs (Past 12 Hours) Vital Signs Temp Pulse Resp BP Pulse Ox O2 Del Method 07/09/23 15:41 36.5 C 94 H 16 135/82 100 Room Air 07/09/23 07:40 Room Air 07/09/23 07:00 36.5 C 90 18 142/84 H 97 Room Air PG Care Time/CCT Total # of Minutes Spent Total Time Spent with Patient: Total time spent is greater than 50% in coordination of care (as documented) at patient's floor/unit and/or counseling patient: Coding Level of Care Code 88220 SUB INP/OBS CARE 2/35MIN Diagnoses Chest pain R07.9 Acute anterior epistaxis R04.0 Pneumonia J18.9 CHF (congestive heart failure) I50.9 Acute encephalopathy G93.40 Thiamine deficiency E51.9 PAD (peripheral artery disease) I73.9 Fall W19.XXXA Alcohol abuse F10.10 Acute hyponatremia E87.1 Abnormal LFTs R79.89 T2DM (type 2 diabetes mellitus) E11.9 Elevated troponin R77.8 PAF (paroxysmal atrial fibrillation) I48.0 HTN (hypertension) I10 HLD (hyperlipidemia) E78.5 COPD (chronic obstructive pulmonary disease) J44.9 Hypothyroidism E03.9 GERD (gastroesophageal reflux disease) K21.9 CAD (coronary atherosclerotic disease) I25.10 Anemia D64.9 Urine retention R33.9 NSVT (nonsustained ventricular tachycardia) I47.29 Hypomagnesemia E83.42 Proteinuria R80.9
--- NOTE | 2023-07-09 20:52 | Electrocardiogram Report ---
Test Reason : Blood Pressure : / mmHG Vent. Rate : 090 BPM Atrial Rate : 096 BPM P-R Int : 000 ms QRS Dur : 104 ms QT Int : 384 ms P-R-T Axes : 000 -68 136 degrees QTc Int : 469 ms Atrial fibrillation with premature ventricular or aberrantly conducted complexes Left axis deviation Incomplete right bundle branch block Septal infarct (cited on or before 04-MAY-2023) Abnormal ECG When compared with ECG of 19-JUN-2023 11:07, Incomplete right bundle branch block is now Present Confirmed by Trav Gaspar ([id number]) on 07/09/2023 8:52:33 PM Referred By: REFERRED SELF Confirmed By:Trav Gaspar
[2023-07-10] MEDS: OLANZapine ZYDIS 5 MG ORALLY DIS. TAB PO PRN (02:03)
[2023-07-10] MEDS: LEVOTHYROXINE SODIUM 75 MCG TABLET PO SCH (05:53)
[2023-07-10] MEDS: FOLIC ACID 1 MG TAB PO SCH (07:33)
[2023-07-10] MEDS: METOPROLOL SUCC 50MG EXT REL TAB PO SCH ×2 (07:33→20:24)
[2023-07-10] MEDS: EMPAGLIFLOZIN 10 MG TAB PO SCH (07:33)
[2023-07-10] MEDS: ATORVASTATIN 40 MG TAB PO SCH (07:34)
[2023-07-10] MEDS: TAMSULOSIN HCL 0.4 MG CAP PO SCH ×2 (07:34→20:20)
[2023-07-10] MEDS: FUROSEMIDE 20 MG TAB PO SCH (07:34)
[2023-07-10] MEDS: APIXABAN 5 MG TABLET PO SCH ×2 (07:34→20:18)
[2023-07-10] MEDS: ENALAPRIL MALEATE 10 MG TAB PO SCH (07:35)
[2023-07-10] MEDS: OLANZapine 5 MG TABLET PO SCH ×2 (07:35→20:22)
[2023-07-10] MEDS: PANTOprazole 40 MG TAB PO SCH (07:35)
[2023-07-10] MEDS: THIAMINE HCL 100 MG TAB PO SCH ×2 (07:35→20:21)
[2023-07-10] MEDS: FLUTICASONE/VILANTEROL 200/25MCG 14 PUFFS/INHALER INH SCH (07:36)
[2023-07-10] MEDS: CLOTRIMAZOLE 1% CR 15 GM TUBE EXT SCH ×2 (07:36→20:22)
[2023-07-10] MEDS: POTASSIUM CHLORIDE CRTAB 20 MEQ TABCR PO SCH (07:41)
--- NOTE | 2023-07-10 16:30 | Hospitalist Progress Note ---
Date of Service July 10, 2023 Assessment & Plan (1) Acute encephalopathy: Plan: Patient has had altered mental status from the time of admission on 06/19. Ongoing. Waxing/waning his entire stay. Said to have improved from admission to 07/05, then worsened and more agitated related to epistaxis/nasal packing and recurrent urinary retention requiring cordoba catheter. acute metabolic encephalopathy in the stay likely 2nd to etoh withdrawal +/- Wernicke's +/- sepsis +/- combination of factors. CT head 06/19/23 without acute findings. 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 He has large ventricles and significant atrophy. Continue olanzapine - increased to 5 mg bid because of significant daytime agitation last week Tolerating this regimen. 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 (2) Urine retention: Plan: Cordoba catheter placed at time of admission Subsequently removed and was voiding spontaneously 07/06 had abdominal pain found to be in acute retention -started flomax 07/07 AM for presumed BPH. Failed voiding trial 07/09-07/10 cordoba replaced and flomax increased to bid -voiding trial in 72h (3) Chest pain: Plan: c/o chest pain afternoon 07/08, RN administered SL nitro, resolved quickly -EKG tracing reviewed on 07/08 - unchanged from previous with incomplete RBBB, septal Qs, PVCs, p waves not easily visible but regular with rate of 90 -chest pain episode was very brief and resolved quickly, did not recur -could have been angina episode but no e/o ACS, could have been noncardiac especially GI -changed pepcid to PPI (4) Acute anterior epistaxis: Plan: Has had minor epistaxis almost daily per nursing staff AM 07/05 severe epistaxis not responsive to 3 rounds of 3 squirts of afrin and prolonged holding pressure, plavix and apixaban held, placed rhinorocket He removed the rhinorocket 07/07 AM on his own, has not rebled thus far, requiring mitts today to prevent ongoing picking and from pulling on his cordoba catheter -melena stool 07/06 result of swallowed blood -CBC with stable hematocrit, thrombocytopenia persists at 91 -resumed apixaban 07/09, monitor -AM CBC ordered (5) CHF (congestive heart failure): Plan: Most recent echo on 05/12/2023 revealed LVEF of 25-30%, elevated RVSP at 4050mmHg; mild to moderate gay valvular regurgitation cont metoprolol succinate increased to 50mg BID due to near-daily runs of NSVT (vs a.fib w/ abberancy) cont enalapril 10mg daily lasix resumed at reduced dose of 20 mg daily, LE edema resolved over week of 07/04-07/09. May need to stop lasix now that he's back on empaglifozin -BMP reviewed 07/06 and Cr 1.15, 07/08 back to 1.5 (which has been typical), potassium normal - continue same dose of lasix -BMP in AM follows with [facility] cardiology needs f/u with them shortly after d/c to discuss possible ICD placement in future due to EF <30% (6) T2DM (type 2 diabetes mellitus): Plan: Last A1c 7.4% on 05/06/2023 Staff having difficulty with frequent insulin administrations and accuchecks because of current agitation Reviewed and he is needing minimal insulin (3u glargine and few doses of aspart daily, often only 1 unit). risk>benefit of this -continue diabetic diet -resumed empaglifozin -stopped insulins -BG check qAM - at goal 07/10 (7) Pneumonia: Plan: 06/26/23 cxr with findings concerning for pneumonia. Completed 4 days of zosyn then 3 days of ceftin. Completed 4 days of IV zyvox then 3 days of PO zyvox. resolved (8) Thiamine deficiency: Plan: B1 level was 7 (8+normal). 2nd to etoh abuse. I am suspicious he has Wernicke's. Family reports he has had confusion for months. Confusion has been present entire admission. This is despite Rx of all medical issues. He continues to confabulate. He has received high dose thiamine earlier in the stay. Has been on thiamine supplementation 200mg BID - decreased to 100 mg bid on 07/10 (9) PAD (peripheral artery disease): Plan: s/p arteriogram 06/28/[address] Moreno -- see his full procedure report SEVERE PAD of both legs with compromised flow below the knees b/l Dr Moreno does not feel intervention could be attempted at [facility] he would need tertiary care center for such I discussed this with his sister by phone PM of 06/28 Cont statin Has been on apixaban and plavix since 02/2023 per review of fill reports Spoke with Dr Elida Carter, vascular surgery at [facility], on 06/30/23. I had pushed his arteriogram images via PACS to [place] after lengthy discussion with Dr Carter urgent or emergent Tx to [place] felt unnecessary we could refer to Dr Ventura locally OR to [facility] in [place] as outpatient denies any rest pain of his feet/legs, extremities often cool and can be dusky but no wounds discussed anticoagulation/antiplatelet with Dr. Moreno 07/06 with respect to the persistent/recurrent then severe epistaxis. Stopped plavix and resumed apixaban alone (10) Fall: Plan: Prior to presentation. Fortunately no major injuries from this fall. Thought to have been 2nd to recent etoh use. By report he was found down with 12+ beer cans surrounding him on the floor. Can't rule out other causes of his fall - subacute CVA, B1 def, alcohol-induced peripheral neuropathy, cerebellar atrophy from etoh abuse, etc. PT, OT Of note - CPK on 06/19 was wnl. MRI brain w/o ICH. (11) Alcohol abuse: Plan: Known h/o alcoholism with heavy drinking just prior to admission. treated for alcohol withdrawal and resolved Thiamine level returned low - certainly could have Wernicke's. Replace. Of note - he did receive high-dose IV thiamine earlier in the stay. Cont thiamine po stopped gabapentin in case contributing to worsened mental status Cont folic acid supplementation. (12) Acute hyponatremia: Plan: Severe. Na level 118 at admission. Resolved. BMPs have remained stable. Na 136 on 07/08 -continue fluid restriction and furosemide (13) Abnormal LFTs: Plan: Presumed 2nd to etoh use or passive congestion from CHF Recent ammonia level wnl LFTs improved while here -LFT 07/08 normal (14) Elevated troponin: Plan: Troponin 67.2-->63.4 on arrival No chest pain, no signs of ACS Likely 2nd to myocardial demand ischemia in the setting of his fall, etc. (15) PAF (paroxysmal atrial fibrillation): Plan: EKG on arrival showed A-fib with RVR, now rate controlled Continue metoprolol apixaban 5mg BID (16) HTN (hypertension): Plan: BPs acceptable (17) HLD (hyperlipidemia): Plan: Continue atorvastatin (18) COPD (chronic obstructive pulmonary disease): Plan: Continue home inhalers as needed No evidence of exacerbation at this time (19) Hypothyroidism: Plan: Continue levothyroxine TSH mildly elevated last 2 checks thus increased synthroid to 75mcg daily Repeat TSH in 6 weeks as outpatient (20) GERD (gastroesophageal reflux disease): Plan: Continue famotidine (21) CAD (coronary atherosclerotic disease): Plan: Hx of cardiac cath on 02/22/23 - Summary: 1. Moderate nonobstructive multivessel coronary artery disease 30% heavily calcified distal left main by IVUS 40-50% heavily calcified ostial circumflex by IVUS (nonobstructive by IFR 0.95). 30% mid LAD in-stent restenosis (nonobstructive by IFR 0.95). Jailed D2 60 to 70% ostial Medical management advised at that time Continue metoprolol, atorvastatin, apixaban, plavix stopped as above due to recurrent epistaxis (22) Anemia: Plan: H/H stable 07/08 (23) NSVT (nonsustained ventricular tachycardia): Plan: has frequent episodes of NSVT vs AF with aberrancy. continue metoprolol either way, in light of EF<30%, he will need to f/u with cardiology to potentially discuss ICD placement (24) Hypomagnesemia: Plan: replaced (25) Proteinuria: Plan: protein on u/a 2-3+ since early 2022 concerning for nephropathy could be a reason for refractory edema of his legs cont ISAIAS inhibitor Plan left message for Dorie Monday, sister, on her voicemail 06/26/23 finally did connect with Ms Monday on 06/28 -- extensive, lengthy update given to Ms Monday with current problems, plan of care, potential need for intervention of b/l leg PAD, etc Ms Monday lives in [place] during the winter Spoke with Henna Davis, daughter in law, by phone ([phone]) on 06/30/23 extensive update given spoke with pt's son Ajay ([phone]) on 07/03/23- extensive update given left voicemail 07/07, 07/09 male voice answered the phone then line cut off or was hung up, called again left voicemail needs rehab - dispo planning - [facility] past week has been restraints/mitts (due to nasal packing then cordoba catheter) and 1:1 attendant Admission and Anticipated Discharge Date Admission Date: June 19, 2023 Subjective Recurrent urinary retention x 3 since cordoba removed - replaced cordoba "How do you know I need that?" remains confused. seems less combative than last week. Denies any pain. Denies CP and SOB. No further CP episodes x 48h Physical Exam Physical Exam: PHYSICAL EXAMINATION Last 24h vital signs reviewed, see documentation in flowsheet General: calm right now, wearing soft mitts, in bed watching TV HEENT: R nare without epistaxis Lungs: CTA ant normal wob Heart: RRR no mrg no jvd Abdomen: s/nd +BT Extremities: Warm, dry, cool hands and feet persist. wearing mitts. small lesions with dark eschar on feet and toes. LE edema resolved : cordoba catheter marielena yellow urine Neuro: Alert and oriented x 1, remains confused, some speech hard to understand, not currently agitated, face symmetric, moves 4 extremities well - unchanged 07/10 Results & Data Results & Data Vital Signs (Past 12 Hours) Vital Signs Temp Pulse Resp BP Pulse Ox O2 Del Method 07/10/23 15:20 36.5 C 97 H 16 138/88 96 Room Air 07/10/23 07:40 Room Air 07/10/23 07:10 36.6 C 07/10/23 07:09 36.2 C L 93 H 93 H 125/85 100 Room Air PG Care Time/CCT Total # of Minutes Spent Total Time Spent with Patient: Total time spent is greater than 50% in coordination of care (as documented) at patient's floor/unit and/or counseling patient: Coding Level of Care Code 26871 SUB INP/OBS CARE 2/35MIN Diagnoses Acute encephalopathy G93.40 Urine retention R33.9 Chest pain R07.9 Acute anterior epistaxis R04.0 CHF (congestive heart failure) I50.9 T2DM (type 2 diabetes mellitus) E11.9 Pneumonia J18.9 Thiamine deficiency E51.9 PAD (peripheral artery disease) I73.9 Fall W19.XXXA Alcohol abuse F10.10 Acute hyponatremia E87.1 Abnormal LFTs R79.89 Elevated troponin R77.8 PAF (paroxysmal atrial fibrillation) I48.0 HTN (hypertension) I10 HLD (hyperlipidemia) E78.5 COPD (chronic obstructive pulmonary disease) J44.9 Hypothyroidism E03.9 GERD (gastroesophageal reflux disease) K21.9 CAD (coronary atherosclerotic disease) I25.10 Anemia D64.9 NSVT (nonsustained ventricular tachycardia) I47.29 Hypomagnesemia E83.42 Proteinuria R80.9
[2023-07-10] MEDS: ACETAMINOPHEN 325 MG TAB PO PRN (20:19)
[2023-07-11] MEDS: OLANZapine ZYDIS 5 MG ORALLY DIS. TAB PO PRN
[2023-07-11] MEDS: OLANZapine 5 MG TABLET PO SCH ×2 (07:22→22:57)
[2023-07-11] MEDS: PANTOprazole 40 MG TAB PO SCH ×2 (07:22→20:54)
[2023-07-11] MEDS: ENALAPRIL MALEATE 10 MG TAB PO SCH (07:22)
[2023-07-11] MEDS: FUROSEMIDE 20 MG TAB PO SCH (07:23)
[2023-07-11] MEDS: ATORVASTATIN 40 MG TAB PO SCH (07:23)
[2023-07-11] MEDS: FOLIC ACID 1 MG TAB PO SCH (07:23)
[2023-07-11] MEDS: THIAMINE HCL 100 MG TAB PO SCH ×2 (07:23→20:54)
[2023-07-11] MEDS: LEVOTHYROXINE SODIUM 75 MCG TABLET PO SCH (07:24)
[2023-07-11] MEDS: APIXABAN 5 MG TABLET PO SCH ×2 (07:24→20:53)
[2023-07-11] MEDS: EMPAGLIFLOZIN 10 MG TAB PO SCH (07:24)
[2023-07-11] MEDS: METOPROLOL SUCC 50MG EXT REL TAB PO SCH ×2 (07:24→20:55)
[2023-07-11] MEDS: TAMSULOSIN HCL 0.4 MG CAP PO SCH ×2 (07:25→20:53)
[2023-07-11] MEDS: CLOTRIMAZOLE 1% CR 15 GM TUBE EXT SCH ×2 (07:25→20:52)
[2023-07-11] MEDS: FLUTICASONE/VILANTEROL 200/25MCG 14 PUFFS/INHALER INH SCH (07:25)
[2023-07-11] MEDS: POTASSIUM CHLORIDE CRTAB 20 MEQ TABCR PO SCH (07:27)
[2023-07-11] MEDS: NITROGLYCERIN SL 0.4 MG/TAB TAB SL PRN (09:49)
[2023-07-11 10:53] LABS: Hematocrit (blood only) 34.6 % (42.0-52.0); Hemoglobin 11.3 g/dl (14.0-18.0); Mean Corpuscular Hemoglobin 29.7 pg (25.0-34.0); Mean Corpuscular Hgb Conc 32.7 g/dL (32.0-36.0); Mean Corpuscular Volume 90.8 fL (80.0-100.0); Mean Platelet Volume 12.1 fL (9.4-12.4); Nucleated RBC # (auto) 0.02 K/uL (0.00-0.12); Nucleated RBC % (auto) 0.3 %; Platelet Count 187 K/uL (130-400); RDW Coefficient of Variation 18.4 % (11.5-14.5); RDW Standard Deviation 59.4 fL (36.4-46.3); Red Blood Count 3.81 M/uL (4.70-6.10); White Blood Count 6.37 K/ul (4.8-10.8)
[2023-07-11 11:09] LABS: BUN Creatinine Ratio 20.2 (10-20); Calcium 8.8 mg/dl (8.6-10.3); Creatinine Clr Calc Pharmacy 43.6 ml/min; Est GFR (African American) 46.3 ml/min; Potassium 4.2 mmol/L (3.5-5.1)
--- NOTE | 2023-07-11 13:51 | Hospitalist Progress Note ---
Date of Service July 11, 2023 Assessment & Plan (1) Acute encephalopathy: Plan: Patient has had altered mental status from the time of admission on 06/19. Ongoing. Waxing/waning his entire stay. Said to have improved from admission to 07/05, then worsened and more agitated related to epistaxis/nasal packing and recurrent urinary retention requiring cordoba catheter. acute metabolic encephalopathy earlier in the stay likely 2nd to etoh withdrawal +/- Wernicke's +/- sepsis +/- combination of factors. Now most likely with ongoing hospital delirium CT head 06/19/23 without acute findings. 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 He has large ventricles and significant atrophy. 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 Continue supportive care, try to wean off one-to-one sitter, promote good sleep- wake cycles, encourage activity with physical therapy (2) Urine retention: Plan: Cordoba catheter placed at time of admission-this was subsequently removed and was voiding spontaneously Then on 07/06 had abdominal pain found to be in acute retention-Cordoba replaced -started flomax 07/07 AM for presumed BPH. Failed voiding trial 07/09-07/10 and cordoba replaced and flomax increased to bid -Will plan to keep Cordoba catheter through at least 07/17 and then attempt voiding trial again after 1 week on increased dose of Flomax Needs follow-up with urology as an outpatient (3) Chest pain: Plan: c/o chest pain afternoon 07/08 and again on the morning of 07/11-RN administered SL nitro, resolved quickly -EKG tracing reviewed on 07/08 - unchanged from previous with incomplete RBBB, septal Qs, PVCs, p waves not easily visible but regular with rate of 90 ECG on 07/11 with atrial fibrillation, rate 94, LAFB, no ischemic changes -could have been angina episode but no e/o ACS, more likely GI related such as reflux with esophageal spasm which could also be relieved by nitroglycerin -Continue PPI but increase to twice daily (4) Acute anterior epistaxis: Plan: Has had minor epistaxis almost daily per nursing staff AM 07/05 severe epistaxis not responsive to 3 rounds of 3 squirts of afrin and prolonged holding pressure, plavix and apixaban held, placed rhinorocket He removed the rhinorocket 1 AM on his own, has not rebled thus far, requiring mitts to prevent ongoing picking and from pulling on his cordoba catheter -melena stool 07/06 result of swallowed blood -CBC with stable hemoglobin, thrombocytopenia now resolved -resumed apixaban 07/09, monitor for rebleeding (5) CHF (congestive heart failure): Plan: Chronic HFrEF-most recent echo on 05/12/2023 revealed LVEF of 25-30%, elevated RVSP at 4050mmHg; mild to moderate gay valvular regurgitation Euvolemic, peripheral edema resolved cont metoprolol succinate increased to 50mg BID due to near-daily runs of NSVT (vs a.fib w/ abberancy) cont enalapril 10mg daily lasix resumed at reduced dose of 20 mg daily Will now stop lasix as he's back on empaglifozin and creatinine is rising up to 1.68 Discontinue potassium chloride as levels are normal and discontinuing Lasix [place] [facility] [place] needs f/u with them shortly after d/c to discuss possible ICD placement in future due to EF <30% (6) T2DM (type 2 diabetes mellitus): Plan: Last A1c 7.4% on 05/06/2023 -continue diabetic diet -resumed empaglifozin -stopped insulins as he was not requiring much-glucose is fairly well-controlled (7) Pneumonia: Plan: 06/26/23 cxr with findings concerning for pneumonia. Completed 4 days of zosyn then 3 days of ceftin. Completed 4 days of IV zyvox then 3 days of PO zyvox. resolved (8) Thiamine deficiency: Plan: B1 level was 7 (8+normal). 2nd to etoh abuse. I am suspicious he has Wernicke's. Family reports he has had confusion for months. Confusion has been present entire admission. This is despite treatment of all medical issues. He continues to confabulate. He has received high dose thiamine earlier in the stay and now is on thiamine 100 mg bid since 07/10 (9) PAD (peripheral artery disease): Plan: s/p arteriogram 06/28/[address] Moreno -- see his full procedure report-with SEVERE PAD of both legs with compromised flow below the knees b/l Dr Moreno does not feel intervention could be attempted at [facility]-he would need tertiary care center for such-this was discussed this with his sister by phone PM of 06/28 Cont statin Has been on apixaban and plavix since 02/2023 per review of fill reports Previous hospitalist spoke with Dr Elida Carter, vascular surgery at [facility], on 06/30/23 who reviewed his arteriogram images via PACS to [place]. After lengthy discussion with Dr Carter, determined that urgent or emergent Tx to [place] was unnecessary. We could refer to Dr Ventura locally OR to [facility] in [place] as outpatient Patient denies any rest pain of his feet/legs, extremities often cool and can be dusky but no wounds Previous hospitalist discussed anticoagulation/antiplatelet with Dr. Moreno 07/06 with respect to the persistent/recurrent then severe epistaxis. Stopped plavix and resumed apixaban alone (10) Fall: Plan: Prior to presentation. Fortunately no major injuries from this fall. Thought to have been 2nd to recent etoh use. By report he was found down with 12+ beer cans surrounding him on the floor. CPK was normal, MRI brain without intracranial hemorrhage Can't rule out other causes of his fall - subacute CVA, B1 def, alcohol-induced peripheral neuropathy, cerebellar atrophy from etoh abuse, etc. PT, OT recommending rehab Fall precautions (11) Alcohol abuse: Plan: Known h/o alcoholism with heavy drinking just prior to admission.he was treated for alcohol withdrawal and resolved Thiamine level returned low - certainly could have Wernicke's. Replacing thiamine as above stopped gabapentin in case contributing to worsened mental status Cont folic acid supplementation. (12) Acute hyponatremia: Plan: Severe. Na level 118 at admission secondary to beer Poto osvaldo-now resolved and sodium levels are normal -continue fluid restriction of 1500 mL/day, but discontinuing Lasix (13) Abnormal LFTs: Plan: Presumed 2nd to etoh use or passive congestion from CHF-now much improved Recent ammonia level wnl (14) Elevated troponin: Plan: Troponin 67.2-->63.4 on arrival No chest pain, no signs of ACS Likely 2nd to myocardial demand ischemia in the setting of his fall, etc. (15) PAF (paroxysmal atrial fibrillation): Plan: EKG on arrival showed A-fib with RVR, now rate controlled Continue metoprolol apixaban 5mg BID (16) HTN (hypertension): Plan: BPs acceptable Continue metoprolol, enalapril, empagliflozin also has some antihypertensive effect (17) HLD (hyperlipidemia): Plan: Continue atorvastatin (18) COPD (chronic obstructive pulmonary disease): Plan: Continue home inhalers as needed No evidence of exacerbation at this time (19) Hypothyroidism: Plan: Continue levothyroxine TSH mildly elevated last 2 checks thus increased synthroid to 75mcg daily Repeat TSH in 6 weeks as outpatient (20) GERD (gastroesophageal reflux disease): Plan: Continue Protonix (21) CAD (coronary atherosclerotic disease): Plan: Hx of cardiac cath on 02/22/23 -Moderate nonobstructive multivessel coronary artery disease, 30% heavily calcified distal left main by IVUS, 40-50% heavily calcified ostial circumflex by IVUS (nonobstructive by IFR 0.95), 30% mid LAD in-stent restenosis (nonobstructive by IFR 0.95). Jailed D2 60 to 70% ostial Medical management advised at that time Continue metoprolol, atorvastatin, apixaban, plavix stopped as above due to recurrent epistaxis (22) Anemia: Plan: Hemoglobin stable at 11.3 Follow CBC (23) NSVT (nonsustained ventricular tachycardia): Plan: has frequent episodes of NSVT vs AF with aberrancy. continue metoprolol which was increased in dose either way, in light of EF<30%, he will need to f/u with cardiology to potentially discuss ICD placement (24) Proteinuria: Plan: protein on u/a 2-3+ since early 2022 concerning for nephropathy could be a reason for refractory edema of his legs cont ISAIAS inhibitor Plan DVT prophylaxis-Eliquis Disposition-continued stay for ongoing encephalopathy, eventually needs rehab placement when he is able to come off of the one-to-one Previous hospitalist discussed his care with his sister, Ms Monday on 06/28 -- extensive, lengthy update given with current problems, plan of care, potential need for intervention of b/l leg PAD, etc Ms Monday lives in [place] during the winter Previous hospitalist spoke with Henna Davis, daughter in law, by phone ([phone]) on 06/30/23 extensive update given Previous hospitalist spoke with pt's son Ajay ([phone]) on 07/03/23- extensive update given left voicemail 07/07, 07/09 male voice answered the phone then line cut off or was hung up, called again left voicemail Admission and Anticipated Discharge Date Admission Date: June 19, 2023 Subjective Patient had a brief episode of chest pain this morning similar to previous episodes that was relieved with nitroglycerin. He does not recall having this when I went to see him. He remains confused and is requiring mitts to keep from pulling his Cordoba catheter and IVs out. He remains on a one-to-one sitter. He thinks that he is at home and tells the sitter that he is going to put pellets in the woodstove. He tells me that he is going drinking with his "drinking lisa" and points his finger towards the sitter. He denies pain anywhere. He frequently falls asleep while talking to him. No issues with nosebleeds since resuming blood thinners. Physical Exam Constitutional: WD/WN, vitals as above Eyes: + anicteric sclerae Respiratory: normal respiratory effort, lungs clear to auscultation Cardiovascular: Rate/Rhythm: regular rate and + irregularly irregular Heart Sounds: no murmur Extremities: no edema Gastrointestinal (Abdomen): normal bowel sounds, soft, nontender, no hepatosplenomegaly Skin: no rashes, warm and dry Neurologic: CN's II-XI intact bilaterally, moves all extremities and + confused; no focal motor deficits and + not awake (Wakes up easily but falls asleep frequently) Psychiatric: Orientation: oriented to person and cooperative; + not oriented to place and + not oriented to time Genitourinary: no penis abnormality (With Cordoba catheter in place draining clear yellow urine) Results & Data Results & Data Vital Signs (Past 12 Hours) Vital Signs Temp Pulse Resp BP Pulse Ox O2 Del Method 07/11/23 10:00 88 16 120/79 98 Room Air 07/11/23 09:49 90 18 145/90 H 94 Room Air 07/11/23 07:30 Room Air 07/11/23 07:20 36.9 C 92 H 18 138/83 95 Room Air Laboratory Results CBC, BMP reviewed PG Care Time/CCT Total # of Minutes Spent Total Time Spent with Patient: Total time spent is greater than 50% in coordination of care (as documented) at patient's floor/unit and/or counseling patient: Coding Level of Care Code 04302 SUB INP/OBS CARE 2/35MIN Diagnoses Acute encephalopathy G93.40 Urine retention R33.9 Chest pain R07.9 Acute anterior epistaxis R04.0 CHF (congestive heart failure) I50.9 T2DM (type 2 diabetes mellitus) E11.9 Pneumonia J18.9 Thiamine deficiency E51.9 PAD (peripheral artery disease) I73.9 Fall W19.XXXA Alcohol abuse F10.10 Acute hyponatremia E87.1 Abnormal LFTs R79.89 Elevated troponin R77.8 PAF (paroxysmal atrial fibrillation) I48.0 HTN (hypertension) I10 HLD (hyperlipidemia) E78.5 COPD (chronic obstructive pulmonary disease) J44.9 Hypothyroidism E03.9 GERD (gastroesophageal reflux disease) K21.9 CAD (coronary atherosclerotic disease) I25.10 Anemia D64.9 NSVT (nonsustained ventricular tachycardia) I47.29 Proteinuria R80.9
[2023-07-12] MEDS: ACETAMINOPHEN 325 MG TAB PO PRN (00:53)
[2023-07-12] MEDS: LEVOTHYROXINE SODIUM 75 MCG TABLET PO SCH (05:40)
[2023-07-12] MEDS: ATORVASTATIN 40 MG TAB PO SCH (08:03)
[2023-07-12] MEDS: THIAMINE HCL 100 MG TAB PO SCH ×2 (08:04→21:31)
[2023-07-12] MEDS: OLANZapine 5 MG TABLET PO SCH ×2 (08:04→21:30)
[2023-07-12] MEDS: EMPAGLIFLOZIN 10 MG TAB PO SCH (08:05)
[2023-07-12] MEDS: FOLIC ACID 1 MG TAB PO SCH (08:05)
[2023-07-12] MEDS: ENALAPRIL MALEATE 10 MG TAB PO SCH (08:05)
[2023-07-12] MEDS: METOPROLOL SUCC 50MG EXT REL TAB PO SCH ×2 (08:05→21:30)
[2023-07-12] MEDS: TAMSULOSIN HCL 0.4 MG CAP PO SCH ×2 (08:05→21:30)
[2023-07-12] MEDS: APIXABAN 5 MG TABLET PO SCH ×2 (08:06→21:30)
[2023-07-12] MEDS: FLUTICASONE/VILANTEROL 200/25MCG 14 PUFFS/INHALER INH SCH (08:06)
[2023-07-12] MEDS: CLOTRIMAZOLE 1% CR 15 GM TUBE EXT SCH ×2 (08:07→21:30)
[2023-07-12] MEDS: PANTOprazole 40 MG TAB PO SCH ×2 (08:07→21:30)
[2023-07-12 09:09] LABS: Calcium 8.4 mg/dl (8.6-10.3); Creatinine Clr Calc Pharmacy 44.6 ml/min; Est GFR (African American) 55.4 ml/min; Est GFR (Non-African American) 47.8 ml/min; Magnesium 2.2 mg/dl (1.7-2.4); Potassium 3.7 mmol/L (3.5-5.1)
--- NOTE | 2023-07-12 16:04 | Hospitalist Progress Note ---
Date of Service July 12, 2023 Assessment & Plan (1) Acute encephalopathy: Plan: Patient has had altered mental status from the time of admission on 06/19. Ongoing. Waxing/waning his entire stay. Said to have improved from admission to 07/05, then worsened and more agitated related to epistaxis/nasal packing and recurrent urinary retention requiring cordoba catheter. acute metabolic encephalopathy earlier in the stay likely 2nd to etoh withdrawal +/- Wernicke's +/- sepsis +/- combination of factors. Now most likely with ongoing hospital delirium-perhaps slightly improved on 07/12 CT head 06/19/23 without acute findings. 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 He has large ventricles and significant atrophy. 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 Continue supportive care, try to wean off one-to-one sitter, promote good sleep- wake cycles, encourage activity with physical therapy (2) Urine retention: Plan: Cordoba catheter placed at time of admission-this was subsequently removed and was voiding spontaneously Then on 07/06 had abdominal pain found to be in acute retention-Cordoba replaced -started flomax 07/07 AM for presumed BPH. Failed voiding trial 07/09-07/10 and cordoba replaced and flomax increased to bid -Will plan to keep Cordoba catheter through at least 07/17 and then attempt voiding trial again after 1 week on increased dose of Flomax Needs follow-up with urology as an outpatient (3) Chest pain: Plan: c/o chest pain afternoon 07/08 and again on the morning of 07/11-RN administered SL nitro, resolved quickly -EKG tracing reviewed on 07/08 - unchanged from previous with incomplete RBBB, septal Qs, PVCs, p waves not easily visible but regular with rate of 90 ECG on 07/11 with atrial fibrillation, rate 94, LAFB, no ischemic changes -could have been angina episode but no e/o ACS, more likely GI related such as reflux with esophageal spasm which could also be relieved by nitroglycerin -Continue PPI but increased to twice daily (4) Acute anterior epistaxis: Plan: Previously was having minor epistaxis almost daily per nursing staff AM 1/10 severe epistaxis not responsive to 3 rounds of 3 squirts of afrin and prolonged holding pressure, plavix and apixaban held, placed rhinorocket He removed the rhinorocket 1/ AM on his own, has not rebled thus far, requiring mitts to prevent ongoing picking and from pulling on his cordoba catheter -melena stool 07/06 result of swallowed blood -CBC with stable hemoglobin, thrombocytopenia now resolved -resumed apixaban 07/09, monitor for rebleeding-none so far (5) CHF (congestive heart failure): Plan: Chronic HFrEF-most recent echo on 05/12/2023 revealed LVEF of 25-30%, elevated RVSP at 4050mmHg; mild to moderate gay valvular regurgitation Euvolemic, peripheral edema resolved cont metoprolol succinate increased to 50mg BID due to near-daily runs of NSVT (vs a.fib w/ abberancy) cont enalapril 10mg daily lasix resumed at reduced dose of 20 mg daily but now held as creatinine was rising to 1.68 since starting back on empagliflozin Continue to hold Lasix and potassium chloride and only give as needed weight gain or peripheral edema/pulmonary edema follows with [facility] cardiology needs f/u with them shortly after d/c to discuss possible ICD placement in future due to EF <30% (6) T2DM (type 2 diabetes mellitus): Plan: Last A1c 7.4% on 05/06/2023 -continue diabetic diet -resumed empaglifozin -stopped insulins as he was not requiring much-glucose is fairly well-controlled (7) Pneumonia: Plan: 06/26/23 cxr with findings concerning for pneumonia. Completed 4 days of zosyn then 3 days of ceftin. Completed 4 days of IV zyvox then 3 days of PO zyvox. resolved (8) Thiamine deficiency: Plan: B1 level was 7 (8+normal). 2nd to etoh abuse. I am suspicious he has Wernicke's. Family reports he has had confusion for months. Confusion has been present entire admission. This is despite treatment of all medical issues. He continues to confabulate. He has received high dose thiamine earlier in the stay and now is on thiamine 100 mg bid since 07/10 (9) PAD (peripheral artery disease): Plan: s/p arteriogram 06/28/[address] Moreno -- see his full procedure report-with SEVERE PAD of both legs with compromised flow below the knees b/l Dr Moreno does not feel intervention could be attempted at [facility]-he would need tertiary care center for such-this was discussed this with his sister by phone PM of 06/28 Cont statin Has been on apixaban and plavix since 02/2023 per review of fill reports Previous hospitalist spoke with Dr Elida Carter, vascular surgery at [facility], on 06/30/23 who reviewed his arteriogram images via PACS to [place]. After lengthy discussion with Dr Carter, determined that urgent or emergent Tx to [place] was unnecessary. We could refer to Dr Ventura locally OR to [facility] in [place] as outpatient Patient denies any rest pain of his feet/legs, extremities often cool and can be dusky but no wounds Previous hospitalist discussed anticoagulation/antiplatelet with Dr. Moreno 07/06 with respect to the persistent/recurrent then severe epistaxis. Stopped plavix and resumed apixaban alone (10) Fall: Plan: Prior to presentation. Fortunately no major injuries from this fall. Thought to have been 2nd to recent etoh use. By report he was found down with 12+ beer cans surrounding him on the floor. CPK was normal, MRI brain without intracranial hemorrhage Can't rule out other causes of his fall - subacute CVA, B1 def, alcohol-induced peripheral neuropathy, cerebellar atrophy from etoh abuse, etc. PT, OT recommending rehab Fall precautions (11) Alcohol abuse: Plan: Known h/o alcoholism with heavy drinking just prior to admission.he was treated for alcohol withdrawal and resolved Thiamine level returned low - certainly could have Wernicke's. Replacing thiamine as above stopped gabapentin in case contributing to worsened mental status Cont folic acid supplementation. (12) Acute hyponatremia: Plan: Severe. Na level 118 at admission secondary to beer Poto osvaldo-now resolved and sodium levels are normal -continue fluid restriction of 1500 mL/day, but discontinuing Lasix (13) Abnormal LFTs: Plan: Presumed 2nd to etoh use or passive congestion from CHF-now much improved Recent ammonia level wnl (14) Elevated troponin: Plan: Troponin 67.2-->63.4 on arrival No chest pain, no signs of ACS Likely 2nd to myocardial demand ischemia in the setting of his fall, etc. (15) PAF (paroxysmal atrial fibrillation): Plan: EKG on arrival showed A-fib with RVR, now rate controlled Continue metoprolol apixaban 5mg BID (16) HTN (hypertension): Plan: BPs acceptable Continue metoprolol, enalapril, empagliflozin also has some antihypertensive effect (17) HLD (hyperlipidemia): Plan: Continue atorvastatin (18) COPD (chronic obstructive pulmonary disease): Plan: Continue home inhalers as needed No evidence of exacerbation at this time (19) Hypothyroidism: Plan: Continue levothyroxine TSH mildly elevated last 2 checks thus increased synthroid to 75mcg daily Repeat TSH in 6 weeks as outpatient (20) GERD (gastroesophageal reflux disease): Plan: Continue Protonix (21) CAD (coronary atherosclerotic disease): Plan: Hx of cardiac cath on 02/22/23 -Moderate nonobstructive multivessel coronary artery disease, 30% heavily calcified distal left main by IVUS, 40-50% heavily calcified ostial circumflex by IVUS (nonobstructive by IFR 0.95), 30% mid LAD in-stent restenosis (nonobstructive by IFR 0.95). Jailed D2 60 to 70% ostial Medical management advised at that time Continue metoprolol, atorvastatin, apixaban, plavix stopped as above due to recurrent epistaxis (22) Anemia: Plan: Hemoglobin stable at 11.3 Follow CBC (23) NSVT (nonsustained ventricular tachycardia): Plan: has frequent episodes of NSVT vs AF with aberrancy. continue metoprolol which was increased in dose either way, in light of EF<30%, he will need to f/u with cardiology to potentially discuss ICD placement (24) Proteinuria: Plan: protein on u/a 2-3+ since early 2022 concerning for nephropathy could be a reason for refractory edema of his legs although this is now resolved cont enalapril Plan DVT prophylaxis-Eliquis Disposition-continued stay for ongoing encephalopathy, eventually needs rehab placement when he is able to come off of the one-to-one Previous hospitalist discussed his care with his sister, Ms Monday on 06/28 -- extensive, lengthy update given with current problems, plan of care, potential need for intervention of b/l leg PAD, etc Ms Monday lives in [place] during the winter Previous hospitalist spoke with Henna Davis, daughter in law, by phone ([phone]) on 06/30/23 extensive update given Previous hospitalist spoke with pt's son Ajay ([phone]) on 07/03/23- extensive update given left voicemail 07/07, 07/09 male voice answered the phone then line cut off or was hung up, called again left voicemail I attempted to call his [id number], Henna, on 07/12 and left a voicemail asking her to call back Admission and Anticipated Discharge Date Admission Date: June 19, 2023 Subjective Patient remains confused and trying to pull off his mitts. He does not know where he is. After I told him he was in the hospital, he did ask "Well how did I get here?" He then did proceed to ask me who is taking care of his legs and I believe he is referencing his peripheral arterial disease and then he went on to talk about previous catheterizations. He them was confused again and thought that it was the year 3231. Physical Exam Constitutional: WD/WN, vitals as above Eyes: + anicteric sclerae Respiratory: normal respiratory effort, lungs clear to auscultation Cardiovascular: Rate/Rhythm: regular rate and + irregularly irregular Heart Sounds: no murmur Extremities: no edema Gastrointestinal (Abdomen): normal bowel sounds, soft, nontender, no hepatosplenomegaly Skin: no rashes, warm and dry Neurologic: CN's II-XI intact bilaterally, moves all extremities, awake (More awake than yesterday) and + confused (But slightly less than yesterday); no focal motor deficits Psychiatric: Orientation: oriented to person and cooperative; + not oriented to place and + not oriented to time Genitourinary: no penis abnormality (With Cordoba catheter in place draining clear yellow urine) Results & Data Results & Data Vital Signs (Past 12 Hours) Vital Signs Temp Pulse Pulse Resp BP Pulse Ox O2 Del Method 07/12/23 14:12 36.6 C 92 H 18 144/86 H 98 Room Air 07/12/23 06:14 35.9 C L 92 H 18 138/89 98 Room Air Laboratory Results BMP, magnesium reviewed PG Care Time/CCT Total # of Minutes Spent Total Time Spent with Patient: Total time spent is greater than 50% in coordination of care (as documented) at patient's floor/unit and/or counseling patient: Coding Level of Care Code 65436 SUB INP/OBS CARE 2/35MIN Diagnoses Acute encephalopathy G93.40 Urine retention R33.9 Chest pain R07.9 Acute anterior epistaxis R04.0 CHF (congestive heart failure) I50.9 T2DM (type 2 diabetes mellitus) E11.9 Pneumonia J18.9 Thiamine deficiency E51.9 PAD (peripheral artery disease) I73.9 Fall W19.XXXA Alcohol abuse F10.10 Acute hyponatremia E87.1 Abnormal LFTs R79.89 Elevated troponin R77.8 PAF (paroxysmal atrial fibrillation) I48.0 HTN (hypertension) I10 HLD (hyperlipidemia) E78.5 COPD (chronic obstructive pulmonary disease) J44.9 Hypothyroidism E03.9 GERD (gastroesophageal reflux disease) K21.9 CAD (coronary atherosclerotic disease) I25.10 Anemia D64.9 NSVT (nonsustained ventricular tachycardia) I47.29 Proteinuria R80.9
[2023-07-13] MEDS: LEVOTHYROXINE SODIUM 75 MCG TABLET PO SCH (06:00)
[2023-07-13] MEDS: CLOTRIMAZOLE 1% CR 15 GM TUBE EXT SCH ×2 (09:17→20:18)
[2023-07-13] MEDS: FLUTICASONE/VILANTEROL 200/25MCG 14 PUFFS/INHALER INH SCH (09:17)
[2023-07-13] MEDS: ENALAPRIL MALEATE 10 MG TAB PO SCH (09:20)
[2023-07-13] MEDS: ATORVASTATIN 40 MG TAB PO SCH (09:20)
[2023-07-13] MEDS: METOPROLOL SUCC 50MG EXT REL TAB PO SCH ×2 (09:20→20:16)
[2023-07-13] MEDS: THIAMINE HCL 100 MG TAB PO SCH ×2 (09:20→20:16)
[2023-07-13] MEDS: OLANZapine 5 MG TABLET PO SCH ×2 (09:20→20:17)
[2023-07-13] MEDS: FOLIC ACID 1 MG TAB PO SCH (09:20)
[2023-07-13] MEDS: TAMSULOSIN HCL 0.4 MG CAP PO SCH ×2 (09:20→20:17)
[2023-07-13] MEDS: EMPAGLIFLOZIN 10 MG TAB PO SCH (09:20)
[2023-07-13] MEDS: PANTOprazole 40 MG TAB PO SCH ×2 (09:21→20:16)
[2023-07-13] MEDS: APIXABAN 5 MG TABLET PO SCH ×2 (09:21→20:16)
--- NOTE | 2023-07-13 11:44 | Hospitalist Progress Note ---
Date of Service July 13, 2023 Assessment & Plan (1) Acute encephalopathy: Plan: Patient has had altered mental status from the time of admission on 06/19. Ongoing. Waxing/waning his entire stay. Said to have improved from admission to 07/05, then worsened and more agitated related to epistaxis/nasal packing and recurrent urinary retention requiring cordoba catheter. acute metabolic encephalopathy earlier in the stay likely 2nd to etoh withdrawal +/- Wernicke's +/- sepsis +/- combination of factors. CT head 06/19/23 without acute findings. 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 He has large ventricles and significant atrophy. At this point presents as neurodegenerative disorder - probably Wernicke's and vascular dementia with superimposed hospital delirium. Perhaps slightly improved on 07/12 Continue olanzapine - increased to 5 mg bid on 07/08 because of significant daytime agitation and helping with agitation but causing drowsiness Continue supportive care, try to wean off one-to-one sitter, promote good sleep- wake cycles, encourage activity with physical therapy (2) Urine retention: Plan: Cordoba catheter placed at time of admission-this was subsequently removed and was voiding spontaneously Then on 07/06 had abdominal pain found to be in acute retention-Cordoba replaced Started flomax 07/07 AM for presumed BPH. Failed voiding trial 07/09-07/10 and cordoba replaced and flomax increased to bid Will plan to keep Cordoba catheter through at least 07/17 and then attempt voiding trial again after 1 week on increased dose of Flomax Needs follow-up with urology as an outpatient (3) Chest pain: Plan: c/o chest pain afternoon 07/08 and again on the morning of 07/11-RN administered SL nitro, resolved quickly -EKG tracing reviewed on 07/08 - unchanged from previous with incomplete RBBB, septal Qs, PVCs, p waves not easily visible but regular with rate of 90 ECG on 07/11 with atrial fibrillation, rate 94, LAFB, no ischemic changes -could have been angina episode but no e/o ACS, more likely GI related such as reflux with esophageal spasm which could also be relieved by nitroglycerin -Continue PPI but increased to twice daily (4) Acute anterior epistaxis: Plan: Previously was having minor epistaxis almost daily per nursing staff AM 07/05 severe epistaxis not responsive to 3 rounds of 3 squirts of afrin and prolonged holding pressure, plavix and apixaban held, placed rhinorocket He removed the rhinorocket 1 AM on his own, has not rebled thus far, requiring mitts to prevent ongoing picking and from pulling on his cordoba catheter -melena stool 07/06 result of swallowed blood -CBC with stable hemoglobin, thrombocytopenia now resolved -resumed apixaban 07/09, monitor for rebleeding-none so far (5) CHF (congestive heart failure): Plan: Chronic HFrEF-most recent echo on 05/12/2023 revealed LVEF of 25-30%, elevated RVSP at 4050mmHg; mild to moderate gay valvular regurgitation Euvolemic, peripheral edema resolved cont metoprolol succinate increased to 50mg BID due to near-daily runs of NSVT (vs a.fib w/ abberancy) cont enalapril 10mg daily lasix resumed at reduced dose of 20 mg daily but then held as creatinine was rising to 1.68 since starting back on empagliflozin-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 Completed 4 days of zosyn then 3 days of ceftin. Completed 4 days of IV zyvox then 3 days of PO zyvox. resolved (8) Thiamine deficiency: Plan: B1 level was 7 (8+normal). 2nd to etoh abuse. I am suspicious he has Wernicke's. Family reports he has had confusion for months. Confusion has been present entire admission. This is despite treatment of all medical issues. He continues to confabulate. He has received high dose thiamine earlier in the stay and now is on thiamine 100 mg bid since 07/10 (9) PAD (peripheral artery disease): Plan: s/p arteriogram 06/28/[address] Moreno -- see his full procedure report-with SEVERE PAD of both legs with compromised flow below the knees b/l Dr Moreno does not feel intervention could be attempted at [facility]-he would need tertiary care center for such-this was discussed this with his sister by phone PM of 06/28 Cont statin Has been on apixaban and plavix since 02/2023 per review of fill reports Previous hospitalist spoke with Dr Elida Carter, vascular surgery at [facility], on 06/30/23 who reviewed his arteriogram images via PACS to [place]. After lengthy discussion with Dr Carter, determined that urgent or emergent Tx to [place] was unnecessary. We could refer to Dr Ventura locally OR to [facility] in [place] as outpatient Patient denies any rest pain of his feet/legs, extremities often cool and can be dusky but no wounds Previous hospitalist discussed anticoagulation/antiplatelet with Dr. Moreno 07/06 with respect to the persistent/recurrent then severe epistaxis. Stopped plavix and resumed apixaban alone (10) Fall: Plan: Prior to presentation. Fortunately no major injuries from this fall. Thought to have been 2nd to recent etoh use. By report he was found down with 12+ beer cans surrounding him on the floor. CPK was normal, MRI brain without intracranial hemorrhage Can't rule out other causes of his fall - subacute CVA, B1 def, alcohol-induced peripheral neuropathy, cerebellar atrophy from etoh abuse, etc. PT, OT recommending rehab Fall precautions (11) Alcohol abuse: Plan: Known h/o alcoholism with heavy drinking just prior to admission.he was treated for alcohol withdrawal and resolved Thiamine level returned low - certainly could have Wernicke's. Replacing thiamine as above stopped gabapentin in case contributing to worsened mental status Cont folic acid supplementation. (12) Acute hyponatremia: Plan: Severe. Na level 118 at admission secondary to beer Potomania-now resolved and sodium levels are normal -continue fluid restriction of 1500 mL/day, but discontinued Lasix -follow BMP periodically (13) Abnormal LFTs: Plan: Presumed 2nd to etoh use or passive congestion from CHF-now much improved Recent ammonia level wnl (14) Elevated troponin: Plan: Troponin 67.2-->63.4 on arrival No chest pain, no signs of ACS Likely 2nd to myocardial demand ischemia in the setting of his fall, etc. (15) PAF (paroxysmal atrial fibrillation): Plan: EKG on arrival showed A-fib with RVR, now rate controlled Continue metoprolol apixaban 5mg BID (16) HTN (hypertension): Plan: BPs acceptable Continue metoprolol, enalapril, empagliflozin also has some antihypertensive effect (17) HLD (hyperlipidemia): Plan: Continue atorvastatin (18) COPD (chronic obstructive pulmonary disease): Plan: Continue home inhalers as needed No evidence of exacerbation at this time (19) Hypothyroidism: Plan: Continue levothyroxine TSH mildly elevated last 2 checks thus increased synthroid to 75mcg daily Repeat TSH in 6 weeks as outpatient (20) GERD (gastroesophageal reflux disease): Plan: Continue Protonix (21) CAD (coronary atherosclerotic disease): Plan: Hx of cardiac cath on 02/22/23 -Moderate nonobstructive multivessel coronary artery disease, 30% heavily calcified distal left main by IVUS, 40-50% heavily calcified ostial circumflex by IVUS (nonobstructive by IFR 0.95), 30% mid LAD in-stent restenosis (nonobstructive by IFR 0.95). Jailed D2 60 to 70% ostial Medical management advised at that time Continue metoprolol, atorvastatin, apixaban, plavix stopped as above due to recurrent epistaxis (22) Anemia: Plan: Hemoglobin stable at 11.3 Follow CBC periodically (23) NSVT (nonsustained ventricular tachycardia): Plan: has frequent episodes of NSVT vs AF with aberrancy. continue metoprolol which was increased in dose either way, in light of EF<30%, he will need to f/u with cardiology to potentially discuss ICD placement (24) Proteinuria: Plan: protein on u/a 2-3+ since early 2022 concerning for nephropathy could be a reason for refractory edema of his legs although this is now resolved cont enalapril Plan DVT prophylaxis-Eliquis Disposition-continued stay for ongoing encephalopathy, eventually needs rehab placement when he is able to come off of the one-to-one Previous hospitalist discussed his care with his sister, Ms Monday on 06/28 -- extensive, lengthy update given with current problems, plan of care, potential need for intervention of b/l leg PAD, etc Ms Monday lives in [place] during the winter Previous hospitalist spoke with Henna Davis, daughter in law, by phone ([phone]) on 06/30/23 extensive update given Previous hospitalist spoke with pt's son Ajay ([phone]) on 07/03/23- extensive update given left voicemail 07/07, 07/09 male voice answered the phone then line cut off or was hung up, called again left voicemail I attempted to call his [id number], Henna, on 07/12 and left a voicemail asking her to call back Admission and Anticipated Discharge Date Admission Date: June 19, 2023 Subjective Remains confused, slurred speech at baseline, states "I could be a hell of a lot better" when asked how he is doing. Then says "Why are you asking me so many questions?" Only oriented to person. Continues to try to pull self out of bed if mitts are off and pull out Cordoba. Physical Exam Constitutional: WD/WN, vitals as above Eyes: + anicteric sclerae Respiratory: normal respiratory effort, lungs clear to auscultation Cardiovascular: Rate/Rhythm: regular rate and + irregularly irregular Heart Sounds: no murmur Extremities: no edema Gastrointestinal (Abdomen): normal bowel sounds, soft, nontender, no hepatosplenomegaly Skin: no rashes, warm and dry + lesion (a few scabbed over lesions on toes bilat) Neurologic: moves all extremities, awake and + confused; no focal motor deficits Psychiatric: Orientation: oriented to person; + not oriented to place and + not oriented to time Genitourinary: no penis abnormality (With Cordoba catheter in place draining clear yellow urine) Results & Data Results & Data Vital Signs (Past 12 Hours) Vital Signs Temp Pulse Resp BP Pulse Ox O2 Del Method 07/13/23 09:18 87 129/75 07/13/23 05:30 36.6 C 90 18 135/75 98 Room Air PG Care Time/CCT Total # of Minutes Spent Total Time Spent with Patient: Total time spent is greater than 50% in coordination of care (as documented) at patient's floor/unit and/or counseling patient: Coding Level of Care Code 43722 SUB INP/OBS CARE 07/20MIN Diagnoses Acute encephalopathy G93.40 Urine retention R33.9 Chest pain R07.9 Acute anterior epistaxis R04.0 CHF (congestive heart failure) I50.9 T2DM (type 2 diabetes mellitus) E11.9 Pneumonia J18.9 Thiamine deficiency E51.9 PAD (peripheral artery disease) I73.9 Fall W19.XXXA Alcohol abuse F10.10 Acute hyponatremia E87.1 Abnormal LFTs R79.89 Elevated troponin R77.8 PAF (paroxysmal atrial fibrillation) I48.0 HTN (hypertension) I10 HLD (hyperlipidemia) E78.5 COPD (chronic obstructive pulmonary disease) J44.9 Hypothyroidism E03.9 GERD (gastroesophageal reflux disease) K21.9 CAD (coronary atherosclerotic disease) I25.10 Anemia D64.9 NSVT (nonsustained ventricular tachycardia) I47.29 Proteinuria R80.9
[2023-07-14] MEDS: LEVOTHYROXINE SODIUM 75 MCG TABLET PO SCH (05:42)
[2023-07-14] MEDS: ENALAPRIL MALEATE 10 MG TAB PO SCH (08:30)
[2023-07-14] MEDS: TAMSULOSIN HCL 0.4 MG CAP PO SCH (08:30)
[2023-07-14] MEDS: FLUTICASONE/VILANTEROL 200/25MCG 14 PUFFS/INHALER INH SCH (08:30)
[2023-07-14] MEDS: ATORVASTATIN 40 MG TAB PO SCH (08:31)
[2023-07-14] MEDS: THIAMINE HCL 100 MG TAB PO SCH ×2 (08:31→20:05)
[2023-07-14] MEDS: CLOTRIMAZOLE 1% CR 15 GM TUBE EXT SCH ×2 (08:31→20:06)
[2023-07-14] MEDS: FOLIC ACID 1 MG TAB PO SCH (08:31)
[2023-07-14] MEDS: APIXABAN 5 MG TABLET PO SCH (08:31)
[2023-07-14] MEDS: OLANZapine 5 MG TABLET PO SCH ×2 (08:31→20:06)
[2023-07-14] MEDS: PANTOprazole 40 MG TAB PO SCH ×2 (08:31→20:05)
[2023-07-14] MEDS: EMPAGLIFLOZIN 10 MG TAB PO SCH (08:31)
[2023-07-14] MEDS: METOPROLOL SUCC 50MG EXT REL TAB PO SCH ×2 (08:31→20:06)
--- NOTE | 2023-07-14 09:35 | Palliative Care Consultation ---
Date of Consultation July 14, 2023 History of Present Illness Reason for Consultation: Goals of Care Requesting Physician: Dr. House Attending Physician: Lexie House MD History of Present Illness 73 year old male with a past medical history of HFrEF, DM2, Severe PAD, COPD, HLD, GERD, anxiety, HTN, paroxysmal A-fib, hypothyroidism, CAD, and alcohol abuse that was initially admitted 06/19 after fall at home with concern for acute alcohol intoxication. He remains admitted for acute encephalopathy, which is likely multifactorial. Concern early in the stay for acute alcohol withdrawal. Thiamine found to be low, so concern for Wernicke's. MRI brain with multiple old strokes, so also concern that vascular dementia could be contributing. Given his length of stay also possible that there is a superimposed hospital delirium. Pt seen at bedside this morning. Arousable. Oriented to person. Denies any acute complaints. Fell asleep/started snoring, multiple times while talking with him. Allergies Allergy/AdvReac Type Severity Reaction Status Date / Time No Known Allergies Allergy Verified 06/09/23 12:23 Home Medications Medication Instructions Recorded Confirmed Type Shower Chair #1 ea 08/19/22 02/20/23 Rx albuterol sulfate 90 mcg/actuation 2 puff inhalation Q4H PRN 10/20/22 06/09/23 Rx aerosol inhaler Wheezing/Dyspnea #8.5 grams apixaban 5 mg tablet (Eliquis) 5 mg PO BID 30 days #60 tabs 10/24/22 06/09/23 Rx atorvastatin 40 mg tablet 40 mg PO DAILY #30 tabs 10/24/22 06/09/23 Rx clopidogrel 75 mg tablet 75 mg PO QAM 30 days #30 tabs 10/24/22 06/09/23 Rx enalapril maleate 10 mg tablet 10 mg PO DAILY 30 days #30 tabs 10/24/22 06/09/23 Rx fluticasone 250 mcg-salmeterol 50 1 inh inhalation BID #60 ea 10/24/22 06/09/23 Rx mcg/dose blistr powdr for inhalation (Advair Diskus) furosemide 20 mg tablet 40 mg (2 x 20 mg) PO DAILY #60 tabs 10/24/22 06/09/23 Rx metoprolol succinate 100 mg 100 mg PO DAILY #30 tabs 10/24/22 06/09/23 Rx tablet,extended release 24 hr potassium chloride 10 mEq 10 meq PO DAILY #30 tabs 10/25/22 06/09/23 Rx tablet,extended release gabapentin 100 mg capsule 100 mg PO TID 01/29/23 06/09/23 History nitroglycerin 0.4 mg sublingual 0.4 mg sublingual Q5M PRN chest 03/22/23 06/09/23 Rx tablet (Nitrostat) pain #25 tabs dapagliflozin propanediol 10 mg 10 mg PO DAILY 05/05/23 06/09/23 History tablet (Farxiga) clotrimazole 1 % topical cream 1 applic EXT BID apply to your 05/15/23 06/09/23 Rx feet and between toes bilateral feet #30 grams famotidine 20 mg tablet 20 mg PO BID #60 tabs 05/15/23 06/09/23 Rx folic acid 1 mg tablet 1 mg PO DAILY #30 tabs 05/15/23 06/09/23 Rx insulin glargine 100 unit/mL (3 10 unit (0.1 mL) subcut DAILY #15 05/15/23 06/09/23 Rx mL) subcutaneous pen (Lantus mL Solostar U-100 Insulin) levothyroxine 50 mcg tablet 50 mcg PO DAILYBB #30 tabs 05/15/23 06/09/23 Rx (Synthroid) thiamine HCl (vitamin B1) 100 mg 100 mg PO QAM #30 tabs 05/15/23 06/09/23 Rx tablet metoprolol succinate 25 mg 25 mg PO BID 05/30/23 06/09/23 History tablet,extended release 24 hr Patient History Medical History (Updated 07/08/23 @ 15:10 by Nely Gates MD) Elevated lactic acid level Anemia CAD (coronary atherosclerotic disease) Fall Hyponatremia NSTEMI (non-ST elevated myocardial infarction) T2DM (type 2 diabetes mellitus) History of anesthesia reaction "my heart started to race" - during eye surgery [facility] PAD (peripheral artery disease) Osteoarthritis [place] [place] (hard of hearing) History of myocardial infarction 1980s Poor historian History of stroke 09/2021 - no deficits PAD (peripheral artery disease) Alcohol abuse Acute hyponatremia Acute kidney injury DVT prophylaxis Acute systolic heart failure Noncompliance Increasing shortness of breath Elevated troponin Atrial fibrillation follows with [facility] Hypervolemia COPD (chronic obstructive pulmonary disease) CHF (congestive heart failure) NICM (nonischemic cardiomyopathy) Alcohol abuse HTN (hypertension) Anxiety GERD (gastroesophageal reflux disease) CKD (chronic kidney disease), stage III Left ventricular dysfunction Syndesmotic disruption of right ankle Fracture dislocation of right ankle History of left heart catheterization (LHC) "nonocclusive CAD, normal LV function" Alcohol abuse HLD (hyperlipidemia) DM2 (diabetes mellitus, type 2) COPD (chronic obstructive pulmonary disease) Surgical History History of non-cataract eye surgery History of cervical spinal surgery ROM WNL History of vascular surgery History of esophagogastroduodenoscopy (EGD) History of colonoscopy History of cardiac cath 09/2021 [place] - 1 stent 2008-nonocclussive CAD History of ankle surgery Family History Brother Pancreatic cancer Cancer Mother Diabetes Myocardial infarction Sister Diabetes Father Heart disease Myocardial infarction Other No family history of adverse response to anesthesia Denies family history of Ovarian cancer Prostate cancer Breast cancer Colorectal cancer Social History Smoking Status: Former smoker Tobacco Type: Cigarettes Second Hand Exposure: Yes; Do You Dip or Chew Tobacco: No; Hx Alcohol Use: Yes Alcohol type: beer Alcohol Intake Frequency: 4 or More x per/Week Hx Substance Use: No (unknown) Preferred Language: Ivorian Communication Ability: Effective Visual Impairment: No Limitations Hearing Ability: Hard of Hearing Film Waxer Required: No Beliefs That Will Affect Care: None marital status: Single Current Living Situation: Alone current occupational status: retired How many Children do You have: 4 Other Information That Helps Us Care for You: No Feels Safe at Home: Yes Safety Concerns: Feels Safe At This Time Childhood Exposure to Second-Hand Smoke: Yes caffeine: Yes (coffee) during the past year weight has: remained stable Dental Care, Regularly: No Physical Activity Frequency: Daily Seatbelt Use: always Sunscreen Use: No Assistive Devices: Cane and Walker Review of Systems Review of Systems: As per above. Limited due to AMS. Physical Exam Physical Exam: Constitutional: no acute distress, mitt restraints in place HEENT: NCAT, no conjunctival injection CV: regular rhythm, no murmur appreciated, extremities well-perfused, no LE edema Resp: CTABL, no wheezes/rales/rhonchi appreciated, no increased work of breathing GI: soft, nondistended, nontender MSK: no gross deformities appreciated Skin: warm, dry, no rash appreciated Neuro: arousable, oriented to self Results & Data Vital Signs (Past 12 Hours) Vital Signs Temp Pulse Resp BP Pulse Ox O2 Del Method 07/14/23 07:49 36.3 C L 78 20 144/92 H 94 Room Air PG Care Time/CCT Total # of Minutes Spent Total Time Spent with Patient: Total time spent is greater than 50% in coordination of care (as documented) at patient's floor/unit and/or counseling patient: Coding
--- NOTE | 2023-07-14 09:40 | Palliative Care Consultation ---
Date of Consultation July 14, 2023 Assessment & Plan (1) Generalized weakness: Secondary to chronic medical conditions in addition to acute deconditioning. (2) Confusion: (3) Advanced care planning/counseling discussion: Advanced care planning over the phone with sonAjay, and [id number], Henna x 25min We reviewed that while pt has oriented to person, but otherwise not able to answer questions. He does not have decision making abilities. In discussion with his son Ajay, Edi has been having memory issues for months predating this admission. They state that they can not take care of him at home and would like placement. In our discussion with family, they affirmed clear choice of No code and comfort care. They would like snf for comfort care no facility preference. Discussed additional support with hospice and Ajay states that he would like placement with hospice. We discussed the goals of hospice as a patient service and the goals of care; we discussed EOL trajectories and transitions mic the emotional impact of realizing mortality as a concrete reality from prior abstract considerations. Pt was reassured that no matter where they are along this trajectory, they are not alone - their medical team will remain by their side through their journey. Discussed the pros/cons of accepting help when especially weakened and distressed by pain-which would also help provide relief/decrease caregiver burden/strain.I provided education about the hospice benefit: an interdisciplinary program offered by nurses, nurses aides, social workers, chaplains and a medical researcher for patients with a terminal condition and a life expectancy of less than 6 months. This is covered by Medicare at 100%/no out of pocket expense to patient and all meds/supplies needed by patient for the reason they are on hospice are paid for/covered by hospice. The goal is assure quality of life of the patient in their home setting (home, jail, inpatient hospice setting) by providing symptoms management, psychosocial and spiritual support. However, they cannot offer 24 hours care and if the family is unable to provide that care, they will have to consider personal care with out of pocket cost vs. jail placement. We discussed the goals of hospice as a patient service and the goals of care; we discussed EOL trajectories and transitions mic the emotional impact of realizing mortality as a concrete reality from prior abstract considerations. Pt was reassured that no matter where they are along this trajectory, they are not alone - their medical team will remain by their side through their journey. Discussed the pros/cons of accepting help when especially weakened and distressed by pain-which would also help provide relief/decrease caregiver burden/strain. Discussed that he would need POLST form filled out and Ajay said he would likely be able to come in tomorrow to complete - this can be done with the primary team as I am not here on weekends. Plan to transition to comfort care. (4) Palliative care by specialist: Met with family. Provided overview of Palliative Medicine, a subspecialty that provides specialized medical care for people living with a serious illness by offering a focus on quality of life. Palliative Medicine is often conflated with hospice: I advised patient/family that Palliative and hospice can be partners but we are not the same. It is important to understand the difference so that we may be informed, and not afraid. Palliative Medicine works to improve QOL through reduction of symptom burden/more control over their illness, for both the patient and family. Palliative medicine clinicians are board certified, specially-trained and another member of the patient's medical care team. We often provide an extra layer of support because our care is based on the needs o f the patient, not the prognosis; as such, it's appropriate at any age/advancing stage of a serious illness and can be provided along with curative treatment. Palliative Medicine clinicians are also trained in advanced communication methodologies, to facilitate complex discussions about advanced illness planning, which are needed to help assure that the treatment choices match the patient's goals, aka delivering Goal Concordant care. Finally, we discussed that hospice is a visiting nurse service that focuses on care delivered at the very end of life for patients with terminal illness, with life expectancy less than 6 month. (5) Acute encephalopathy: Likely multifactorial in the setting of vascular dementia, Wernicke's, and hospital delirium. Continue with Zyprexa, could consider increasing nightly dose to help with insomnia and with the goal of being able to get rid of restraints. (6) Alcohol abuse: (7) Chronic systolic congestive heart failure, NYHA class 2: Plan Comfort Care Discharge Summary & Plan of Care For Correction/SNF/PCH/PURVI Patient Name: Edi Davis Comfort plan of care agreed upon by: son and dtr in law Discussed with Patient/Family on: 07/14/23 Copy of this plan will be/has been given to:facility and hospice by CM Comfort plan of care parameters: 1. Patient/Family want hospice added to their care. 2. NO rehab/PT/OT 3. Strictly End of Life care only 4. NO escalation of care: do not increase oxygen, escalate therapies, etc. The focus is on comfort through end of life, assure this is accomplished with aggressive symptom management (i.e. relief of dyspnea, pain, etc.) 5. NO return to hospital 6. NO labs, imaging, surgery 7. Oral intake as desired for comfort and pleasure: NO dietary restriction 8. If difficulty urinating/commode/bedpan, ok to place Perez catheter for comfort/hygiene/skin protection AND/OR Continue Perez catheter for comfort/hygiene/skin protection 9. NO: calorie counts, artificial nutrition, feeding tubes or IV fluids Medications to continue are noted on discharge summary. Provider to contact if any questions about comfort plan of care: Hospice Building Carpenter Helper or designee COmfort care orders written Pt was seen and evaluated with Dr Leon/[facility] med resident. All aspects of the exam, assessment and plan ahve been repeated and verified by me. Thank you for allowing us to participate in the ongoing care of this patient. Please don't hesitate to call or page with any additional concerns. Dr. Sunshine Anaya DNP Director, Palliative Care History of Present Illness Attending Physician: Lexie House MD History of Present Illness 73 year old male with a past medical history of HFrEF, DM2, Severe PAD, COPD, HLD, GERD, anxiety, HTN, paroxysmal A-fib, hypothyroidism, CAD, and alcohol abuse that was initially admitted 06/19 after fall at home with concern for acute alcohol intoxication. He remains admitted for acute encephalopathy, which is likely multifactorial. Concern early in the stay for acute alcohol withdrawal. Thiamine found to be low, so concern for Wernicke's. MRI brain with multiple old strokes, so also concern that vascular dementia could be contributing. Given his length of stay, also possible that there is a superimposed hospital delirium. Pt seen at bedside this morning. Arousable. Oriented to person. Denies any acute complaints. Fell asleep/started snoring, multiple times while talking with him. Allergies Allergy/AdvReac Type Severity Reaction Status Date / Time No Known Allergies Allergy Verified 06/09/23 12:23 Home Medications Medication Instructions Recorded Confirmed Type Shower Chair #1 ea 08/19/22 02/20/23 Rx albuterol sulfate 90 mcg/actuation 2 puff inhalation Q4H PRN 10/20/22 06/09/23 Rx aerosol inhaler Wheezing/Dyspnea #8.5 grams apixaban 5 mg tablet (Eliquis) 5 mg PO BID 30 days #60 tabs 10/24/22 06/09/23 Rx atorvastatin 40 mg tablet 40 mg PO DAILY #30 tabs 10/24/22 06/09/23 Rx clopidogrel 75 mg tablet 75 mg PO QAM 30 days #30 tabs 10/24/22 06/09/23 Rx enalapril maleate 10 mg tablet 10 mg PO DAILY 30 days #30 tabs 10/24/22 06/09/23 Rx fluticasone 250 mcg-salmeterol 50 1 inh inhalation BID #60 ea 10/24/22 06/09/23 Rx mcg/dose blistr powdr for inhalation (Advair Diskus) furosemide 20 mg tablet 40 mg (2 x 20 mg) PO DAILY #60 tabs 10/24/22 06/09/23 Rx metoprolol succinate 100 mg 100 mg PO DAILY #30 tabs 10/24/22 06/09/23 Rx tablet,extended release 24 hr potassium chloride 10 mEq 10 meq PO DAILY #30 tabs 10/25/22 06/09/23 Rx tablet,extended release gabapentin 100 mg capsule 100 mg PO TID 01/29/23 06/09/23 History nitroglycerin 0.4 mg sublingual 0.4 mg sublingual Q5M PRN chest 03/22/23 06/09/23 Rx tablet (Nitrostat) pain #25 tabs dapagliflozin propanediol 10 mg 10 mg PO DAILY 05/05/23 06/09/23 History tablet (Farxiga) clotrimazole 1 % topical cream 1 applic EXT BID apply to your 05/15/23 06/09/23 Rx feet and between toes bilateral feet #30 grams famotidine 20 mg tablet 20 mg PO BID #60 tabs 05/15/23 06/09/23 Rx folic acid 1 mg tablet 1 mg PO DAILY #30 tabs 05/15/23 06/09/23 Rx insulin glargine 100 unit/mL (3 10 unit (0.1 mL) subcut DAILY #15 05/15/23 06/09/23 Rx mL) subcutaneous pen (Lantus mL Solostar U-100 Insulin) levothyroxine 50 mcg tablet 50 mcg PO DAILYBB #30 tabs 05/15/23 06/09/23 Rx (Synthroid) thiamine HCl (vitamin B1) 100 mg 100 mg PO QAM #30 tabs 05/15/23 06/09/23 Rx tablet metoprolol succinate 25 mg 25 mg PO BID 05/30/23 06/09/23 History tablet,extended release 24 hr Patient History Medical History (Updated 07/15/23 @ 02:41 by Sunshine Anaya, TOLU) Elevated lactic acid level Anemia CAD (coronary atherosclerotic disease) Fall Hyponatremia NSTEMI (non-ST elevated myocardial infarction) T2DM (type 2 diabetes mellitus) History of anesthesia reaction "my heart started to race" - during eye surgery [facility] PAD (peripheral artery disease) Osteoarthritis ANVIK (hard of hearing) History of myocardial infarction 1980s Poor historian History of stroke 09/2021 - no deficits PAD (peripheral artery disease) Alcohol abuse Acute hyponatremia Acute kidney injury DVT prophylaxis Acute systolic heart failure Noncompliance Increasing shortness of breath Elevated troponin Atrial fibrillation follows with [facility] Hypervolemia COPD (chronic obstructive pulmonary disease) CHF (congestive heart failure) NICM (nonischemic cardiomyopathy) Alcohol abuse HTN (hypertension) Anxiety GERD (gastroesophageal reflux disease) CKD (chronic kidney disease), stage III Left ventricular dysfunction Syndesmotic disruption of right ankle Fracture dislocation of right ankle History of left heart catheterization (LHC) "nonocclusive CAD, normal LV function" Alcohol abuse HLD (hyperlipidemia) DM2 (diabetes mellitus, type 2) COPD (chronic obstructive pulmonary disease) Surgical History History of non-cataract eye surgery History of cervical spinal surgery ROM WNL History of vascular surgery History of esophagogastroduodenoscopy (EGD) History of colonoscopy History of cardiac cath 09/2021 [place] - 1 stent 2008-nonocclussive CAD History of ankle surgery Family History Brother Pancreatic cancer Cancer Mother Diabetes Myocardial infarction Sister Diabetes Father Heart disease Myocardial infarction Other No family history of adverse response to anesthesia Denies family history of Ovarian cancer Prostate cancer Breast cancer Colorectal cancer Social History Smoking Status: Former smoker Tobacco Type: Cigarettes Second Hand Exposure: Yes; Do You Dip or Chew Tobacco: No; Hx Alcohol Use: Yes Alcohol type: beer Alcohol Intake Frequency: 4 or More x per/Week Hx Substance Use: No (unknown) Preferred Language: Icelandic Communication Ability: Effective Visual Impairment: No Limitations Hearing Ability: Hard of Hearing Associate Dean Of Women Required: No Beliefs That Will Affect Care: None marital status: Single Current Living Situation: Alone current occupational status: retired How many Children do You have: 4 Other Information That Helps Us Care for You: No Feels Safe at Home: Yes Safety Concerns: Feels Safe At This Time Childhood Exposure to Second-Hand Smoke: Yes caffeine: Yes (coffee) during the past year weight has: remained stable Dental Care, Regularly: No Physical Activity Frequency: Daily Seatbelt Use: always Sunscreen Use: No Assistive Devices: Cane and Walker Review of Systems Review of Systems: As per above. Limited due to AMS. Physical Exam Physical Exam: Constitutional: no resp distress, mitt restraints in place , restless and agitated/trying to remove mitts, trying to remove foam boots HEENT: NCAT, no conjunctival injection CV: regular rhythm, no murmur appreciated, extremities well-perfused, no LE edema Resp: CTABL, no wheezes/rales/rhonchi appreciated, no increased work of breathing GI: soft, nondistended, nontender MSK: no gross deformities appreciated Skin: warm, dry, no rash appreciated Neuro: arousable, oriented to self , confused otherwise, garbled speech at times, unable to follow commands Results & Data Vital Signs (Past 12 Hours) Vital Signs Temp Pulse Resp BP Pulse Ox O2 Del Method 07/14/23 07:49 36.3 C L 78 20 144/92 H 94 Room Air Laboratory Results data reviewed Diagnostic Findings data reviewed
--- NOTE | 2023-07-14 10:47 | Electrocardiogram Report ---
Test Reason : Blood Pressure : / mmHG Vent. Rate : 094 BPM Atrial Rate : 089 BPM P-R Int : 000 ms QRS Dur : 114 ms QT Int : 388 ms P-R-T Axes : 000 -69 141 degrees QTc Int : 485 ms Atrial fibrillation Left anterior fascicular block Septal infarct (cited on or before 04-MAY-2023) Nonspecific T wave abnormality Prolonged QT Abnormal ECG When compared with ECG of 08-JUL-2023 14:57, Premature ventricular complexes are no longer Present Confirmed by Martinez Gates ([id number]) on 07/14/2023 10:47:12 AM Referred By: REFERRED SELF Confirmed By:Martinez Gates
[2023-07-14] MEDS ORDERED: MoRPHine SULFATE 10 MG/0.5 ML UDP PO PRN ×2 (13:17→13:22)
[2023-07-14] MEDS ORDERED: LORazepam 1 MG in SYRINGE 0.25 ML IV PRN ×2 (13:17→13:22)
[2023-07-14] MEDS ORDERED: GLYCOPYRROLATE 0.2 MG/ML VIAL IV PRN ×2 (13:17→13:22)
[2023-07-14] MEDS ORDERED: MoRPHine SULFATE 2 MG/ML CARP IV PRN (13:22)
--- NOTE | 2023-07-14 14:47 | Hospitalist Progress Note ---
Date of Service July 14, 2023 Assessment & Plan (1) Acute encephalopathy: Plan: Patient has had altered mental status from the time of admission on 06/19. Ongoing. Waxing/waning his entire stay. Said to have improved from admission to 07/05, then worsened and more agitated related to epistaxis/nasal packing and recurrent urinary retention requiring cordoba catheter. acute metabolic encephalopathy earlier in the stay likely 2nd to etoh withdrawal +/- Wernicke's +/- sepsis +/- combination of factors. CT head 06/19/23 without acute findings. 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 He has large ventricles and significant atrophy. At this point presents as neurodegenerative disorder - probably Wernicke's and vascular dementia with superimposed hospital delirium. 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 Palliative consult placed and decision made with family to pursue VOCATIONAL REHAB CONSULTANT-appreciate consult Increase olanzapine to 7.5mg po bid Lorazepam for anxiety and morphine for pain or breathlessness glycopyrrolate for secretions Stop unnecessary meds (2) Urine retention: Plan: Continue Cordoba on VOCATIONAL REHAB CONSULTANT (3) Chest pain: Plan: c/o chest pain afternoon 07/08 and again on the morning of 07/11-RN administered SL nitro, resolved quickly -EKG tracing reviewed on 07/08 - unchanged from previous with incomplete RBBB, septal Qs, PVCs, p waves not easily visible but regular with rate of 90 ECG on 07/11 with atrial fibrillation, rate 94, LAFB, no ischemic changes -could have been angina episode but no e/o ACS, more likely GI related such as reflux with esophageal spasm which could also be relieved by nitroglycerin -Continue PPI but increased to twice daily (4) Acute anterior epistaxis: Plan: Previously was having minor epistaxis almost daily per nursing staff AM 07/05 severe epistaxis not responsive to 3 rounds of 3 squirts of afrin and prolonged holding pressure, plavix and apixaban held, placed rhinorocket He removed the rhinorocket 07/07 AM on his own, has not rebled thus far, requiring mitts to prevent ongoing picking and from pulling on his cordoba catheter -melena stool 07/06 result of swallowed blood -CBC with stable hemoglobin, thrombocytopenia now resolved -resumed apixaban 07/09, now will discontinue on VOCATIONAL REHAB CONSULTANT (5) CHF (congestive heart failure): Plan: Chronic HFrEF-most recent echo on 05/12/2023 revealed LVEF of 25-30%, elevated RVSP at 4050mmHg; mild to moderate gay valvular regurgitation Euvolemic, peripheral edema resolved cont metoprolol succinate increased to 50mg BID due to near-daily runs of NSVT (vs a.fib w/ abberancy) cont enalapril 10mg daily stopped lasix, KCl No need for ICD or Cardiology f/u on comfort measures (6) T2DM (type 2 diabetes mellitus): Plan: Last A1c 7.4% on 05/06/2023 liberalize diet on VOCATIONAL REHAB CONSULTANT dc empaglifozin , no need for insulin or glucose checks on VOCATIONAL REHAB CONSULTANT (7) Pneumonia: Plan: 06/26/23 cxr with findings concerning for pneumonia. Completed antibiotics (8) Thiamine deficiency: Plan: B1 level was 7 (8+normal). 2nd to etoh abuse. 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 Family reports he has had confusion for months. Confusion has been present entire admission. This is despite treatment of all medical issues. He continues to confabulate. He has received high dose thiamine earlier in the stay and now is on thiamine 100 mg bid since 07/10 (9) PAD (peripheral artery disease): Plan: s/p arteriogram 06/28/[address] Moreno -- see his full procedure report-with SEVERE PAD of both legs with compromised flow below the knees b/l Dr Moreno does not feel intervention could be attempted at [facility]-he would need tertiary care center for such-this was discussed this with his sister by phone PM of 06/28 Has been on apixaban and plavix since 02/2023 per review of fill reports Previous hospitalist spoke with Dr Elida Carter, vascular surgery at [facility], on 06/30/23 who reviewed his arteriogram images via PACS to [place]. After lengthy discussion with Dr Carter, determined that urgent or emergent Tx to [place] was unnecessary. We could refer to Dr Ventura locally OR to [facility] in [place] as outpatient Patient denies any rest pain of his feet/legs, extremities often cool and can be dusky but no wounds Previous hospitalist discussed anticoagulation/antiplatelet with Dr. Moreno 07/06 with respect to the persistent/recurrent then severe epistaxis. Stopped plavix and resumed apixaban alone Now STOP antiplatelet, ELiquis, and statin on VOCATIONAL REHAB CONSULTANT (10) Fall: Plan: Prior to presentation. Fortunately no major injuries from this fall. Thought to have been 2nd to recent etoh use. By report he was found down with 12+ beer cans surrounding him on the floor. CPK was normal, MRI brain without intracranial hemorrhage Can't rule out other causes of his fall - subacute CVA, B1 def, alcohol-induced peripheral neuropathy, cerebellar atrophy from etoh abuse, etc. (11) Alcohol abuse: Plan: Known h/o alcoholism with heavy drinking just prior to admission.he was treated for alcohol withdrawal and resolved Thiamine level returned low - certainly could have Wernicke's. Replacing thiamine as above stopped gabapentin in case contributing to worsened mental status Cont folic acid supplementation. (12) Acute hyponatremia: Plan: Severe. Na level 118 at admission secondary to beer Potomania-now resolved and sodium levels are normal can remove fluid restriction now on VOCATIONAL REHAB CONSULTANT no further labs to be drawn (13) Abnormal LFTs: Plan: Presumed 2nd to etoh use or passive congestion from CHF-now much improved Recent ammonia level wnl (14) Elevated troponin: Plan: Troponin 67.2-->63.4 on arrival No chest pain, no signs of ACS Likely 2nd to myocardial demand ischemia in the setting of his fall, etc. (15) PAF (paroxysmal atrial fibrillation): Plan: EKG on arrival showed A-fib with RVR, now rate controlled Continue metoprolol discontinue apixaban on VOCATIONAL REHAB CONSULTANT (16) HTN (hypertension): Plan: BPs acceptable Continue metoprolol, enalapril (17) COPD (chronic obstructive pulmonary disease): Plan: Continue home inhalers as needed No evidence of exacerbation at this time (18) Hypothyroidism: Plan: Continue levothyroxine TSH mildly elevated last 2 checks thus increased synthroid to 75mcg daily (19) GERD (gastroesophageal reflux disease): Plan: Continue Protonix (20) CAD (coronary atherosclerotic disease): Plan: Hx of cardiac cath on 02/22/23 -Moderate nonobstructive multivessel coronary artery disease, 30% heavily calcified distal left main by IVUS, 40-50% heavily calcified ostial circumflex by IVUS (nonobstructive by IFR 0.95), 30% mid LAD in-stent restenosis (nonobstructive by IFR 0.95). Jailed D2 60 to 70% ostial Medical management advised at that time Continue metoprolol, but discontinue atorvastatin, apixaban, plavix on comfort measures (21) Anemia: Plan: Hemoglobin stable at 11.3 no further labs (22) NSVT (nonsustained ventricular tachycardia): Plan: has frequent episodes of NSVT vs AF with aberrancy. continue metoprolol which was increased in dose no ICD needed now on VOCATIONAL REHAB CONSULTANT Plan DVT prophylaxis-Eliquis Disposition-continued stay for ongoing encephalopathy, now on VOCATIONAL REHAB CONSULTANT and will look for intermodal owner operator truck driver care with hospice Admission and Anticipated Discharge Date Admission Date: June 19, 2023 Subjective Pt remains confused. Asks for a 12 pack of beer. Discussed care with Palliative and decision made with family to pursue VOCATIONAL REHAB CONSULTANT Physical Exam Constitutional: WD/WN, vitals as above Eyes: + anicteric sclerae Respiratory: normal respiratory effort, lungs clear to auscultation Cardiovascular: Rate/Rhythm: regular rate and + irregularly irregular Heart Sounds: no murmur Extremities: no edema Gastrointestinal (Abdomen): normal bowel sounds, soft, nontender, no hepatosplenomegaly Skin: no rashes, warm and dry + lesion (a few scabbed over lesions on toes bilat) Neurologic: moves all extremities, awake and + confused; no focal motor deficits Psychiatric: Orientation: oriented to person and cooperative; + not oriented to place and + not oriented to time Genitourinary: no penis abnormality (With Cordoba catheter in place draining clear yellow urine) Results & Data Results & Data Vital Signs (Past 12 Hours) Vital Signs Temp Pulse Resp BP Pulse Ox O2 Del Method 07/14/23 07:49 36.3 C L 78 20 144/92 H 94 Room Air PG Care Time/CCT Total # of Minutes Spent Total Time Spent with Patient: Total time spent is greater than 50% in coordination of care (as documented) at patient's floor/unit and/or counseling patient: Coding Level of Care Code 55814 SUB INP/OBS CARE 125MIN Diagnoses Acute encephalopathy G93.40 Urine retention R33.9 Chest pain R07.9 Acute anterior epistaxis R04.0 CHF (congestive heart failure) I50.9 T2DM (type 2 diabetes mellitus) E11.9 Pneumonia J18.9 Thiamine deficiency E51.9 PAD (peripheral artery disease) I73.9 Fall W19.XXXA Alcohol abuse F10.10 Acute hyponatremia E87.1 Abnormal LFTs R79.89 Elevated troponin R77.8 PAF (paroxysmal atrial fibrillation) I48.0 HTN (hypertension) I10 COPD (chronic obstructive pulmonary disease) J44.9 Hypothyroidism E03.9 GERD (gastroesophageal reflux disease) K21.9 CAD (coronary atherosclerotic disease) I25.10 Anemia D64.9 NSVT (nonsustained ventricular tachycardia) I47.29
[2023-07-14] MEDS ORDERED: BEER 1 CAN PO ONE (21:24)
--- NOTE | 2023-07-15 02:49 | Palliative Care Consultation ---
Date of Consultation July 15, 2023 Assessment & Plan (1) Confusion: (2) Generalized weakness: (3) Advanced care planning/counseling discussion: (4) Palliative care by specialist: (5) Elevated troponin: (6) CHF (congestive heart failure): (7) PSVT (paroxysmal supraventricular tachycardia): (8) Overweight (BMI 25.0-29.9): (9) Alcohol abuse: Plan [facility] [place] [address] Palliative Care Consultation ISigned Patient: KIMBERLY DAVIS Admit Date: 06/19/23 MR#: [id number] Att Phy: Lexie House MD Acct ID: [id number] Martha Phy: Janell Aldana DO Date: 1950 Fam Phy: Age: 73 Location: 3N Sex: M Room/Bed: N383-2 cc: Janell Aldana DO~ *NOTICE TO RECEIVING GREEN PARTY/AGENCY This information is strictly Confidential and protected under [place] law. [place] law prohibits you from making any further disclosure of this information unless further disclosure is expressly permitted by the written consent of the person to whom it pertains or is authorized by law. A general authorization for the release of medical or other information is not sufficient for this purpose. Hospital accepts no responsibility if the information is made available to any other person, INCLUDING THE PATIENT. Date of Consultation July 14, 2023 Assessment & Plan (1) Generalized weakness: Secondary to chronic medical conditions in addition to acute deconditioning. (2) Confusion: (3) Advanced care planning/counseling discussion: Advanced care planning over the phone with son, Ajay, and [id number] x 25min We reviewed that while pt has oriented to person, but otherwise not able to answer questions. He does not have decision making abilities. In discussion with his son Kimberly Moss has been having memory issues for months predating this admission. They state that they can not take care of him at home and would like placement. In our discussion with family, they affirmed clear choice of No code and comfort care. They would like snf for comfort care no facility preference. Discussed additional support with hospice and Ajay states that he would like placement with hospice. We discussed the goals of hospice as a patient service and the goals of care; we discussed EOL trajectories and transitions mic the emotional impact of realizing mortality as a concrete reality from prior abstract considerations. Pt was reassured that no matter where they are along this trajectory, they are not alone - their medical team will remain by their side through their journey. Discussed the pros/cons of accepting help when especially weakened and distressed by pain-which would also help provide relief/decrease caregiver burden/strain.I provided education about the hospice benefit: an interdisciplinary program offered by nurses, nurses aides, social workers, chaplains and a medical laboratory technicians for patients with a terminal condition and a life expectancy of less than 6 months. This is covered by Medicare at 100%/no out of pocket expense to patient and all meds/supplies needed by patient for the reason they are on hospice are paid for/covered by hospice. The goal is assure quality of life of the patient in their home setting (home, retirement, inpatient hospice setting) by providing symptoms management, psychosocial and spiritual support. However, they cannot offer 24 hours care and if the family is unable to provide that care, they will have to consider personal care with out of pocket cost vs. retirement placement. We discussed the goals of hospice as a patient service and the goals of care; we discussed EOL trajectories and transitions mic the emotional impact of realizing mortality as a concrete reality from prior abstract considerations. Pt was reassured that no matter where they are along this trajectory, they are not alone - their medical team will remain by their side through their journey. Discussed the pros/cons of accepting help when especially weakened and distressed by pain-which would also help provide relief/decrease caregiver burden/strain. Discussed that he would need POLST form filled out and Ajay said he would likely be able to come in tomorrow to complete - this can be done with the primary team as I am not here on weekends. Plan to transition to comfort care. (4) Palliative care by specialist: Met with family. Provided overview of Palliative Medicine, a subspecialty that p rovides specialized medical care for people living with a serious illness by offering a focus on quality of life. Palliative Medicine is often conflated with hospice: I advised patient/family that Palliative and hospice can be partners but we are not the same. It is important to understand the difference so that we may be informed, and not afraid. Palliative Medicine works to improve QOL through reduction of symptom burden/more control over their illness, for both the patient and family. Palliative medicine clinicians are board certified, specially-trained and another member of the patient's medical care team. We often provide an extra layer of support because our care is based on the needs of the patient, not the prognosis; as such, it's appropriate at any age/advancing stage of a serious illness and can be provided along with curative treatment. Palliative Medicine clinicians are also trained in advanced communication methodologies, to facilitate complex discussions about advanced illness planning, which are needed to help assure that the treatment choices match the patient's goals, aka delivering Goal Concordant care. Finally, we discussed that hospice is a visiting nurse service that focuses on care delivered at the very end of life for patients with terminal illness, with life expectancy less than 6 month. (5) Acute encephalopathy: Likely multifactorial in the setting of vascular dementia, Wernicke's, and hospital delirium. Continue with Zyprexa, could consider increasing nightly dose to help with insomnia and with the goal of being able to get rid of restraints. (6) Alcohol abuse: (7) Chronic systolic congestive heart failure, NYHA class 2: Plan Comfort Care Discharge Summary & Plan of Care For Snf/SNF/PCH/PURVI Patient Name: Kimberly Davis Comfort plan of care agreed upon by: son and dtr in law Discussed with Patient/Family on: 07/14/23 Copy of this plan will be/has been given to:facility and hospice by CM Comfort plan of care parameters: 1. Patient/Family want hospice added to their care. 2. NO rehab/PT/OT 3. Strictly End of Life care only 4. NO escalation of care: do not increase oxygen, escalate therapies, etc. The focus is on comfort through end of life, assure this is accomplished with aggressive symptom management (i.e. relief of dyspnea, pain, etc.) 5. NO return to hospital 6. NO labs, imaging, surgery 7. Oral intake as desired for comfort and pleasure: NO dietary restriction 8. If difficulty urinating/commode/bedpan, ok to place Perez catheter for comfort/hygiene/skin protection AND/OR Continue Perez catheter for comfort/hygiene/skin protection 9. NO: calorie counts, artificial nutrition, feeding tubes or IV fluids Medications to continue are noted on discharge summary. 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 All aspects of the exam, assessment and plan ahve been repeated and verified by me. Thank you for allowing us to participate in the ongoing care of this patient. Please don't hesitate to call or page with any additional concerns. Dr. Sunshine Anaya [facility] Director, Palliative Care History of Present Illness Attending Physician: Lexie House MD History [place] [address] Palliative Care Consultation ISigned Patient: KIMBERLY DAVIS Admit Date: 06/19/23 MR#: [id number] Att Phy: Lexie House MD Acct ID: [id number] Martha Phy: Janell Aldana DO Date: 1950 [facility] Phy: Age: 73 Location: N Sex: M Room/Bed: [facility] cc: Janell Aldana DO~ *NOTICE TO RECEIVING GREEN PARTY/AGENCY This information is strictly Confidential and protected under [place] law. [place] law prohibits you from making any further disclosure of this information unless further disclosure is expressly permitted by the written consent of the person to whom it pertains or is authorized by law. A general authorization for the release of medical or other information is not sufficient for this purpose. Hospital accepts no responsibility if the information is made available to any other person, INCLUDING THE PATIENT. Date of Consultation July 14, 2023 Assessment & Plan (1) Generalized weakness: Secondary to chronic medical conditions in addition to acute deconditioning. (2) Confusion: (3) Advanced care planning/counseling discussion: Advanced care planning over the phone with son, Ajay, and [id number], [place] x 25min We reviewed that while pt has oriented to person, but otherwise not able to answer questions. He does not have decision making abilities. In discussion with his son Kimberly Moss has been having memory issues for months predating this admission. They state that they can not take care of him at home and would like placement. In our discussion with family, they affirmed clear choice of No code and comfort care. They would like snf for comfort care no facility preference. Discussed additional support with hospice and Ajay states that he would like placement with hospice. We discussed the goals of hospice as a patient service and the goals of care; we discussed EOL trajectories and transitions mic the emotional impact of realizing mortality as a concrete reality from prior abstract considerations. Pt was reassured that no matter where they are along this trajectory, they are not alone - their medical team will remain by their side through their journey. Discussed the pros/cons of accepting help when especially weakened and distressed by pain-which would also help provide relief/decrease caregiver burden/strain.I provided education about the hospice benefit: an interdisciplinary program offered by nurses, nurses aides, social workers, chaplains and a medical laboratory technicians for patients with a terminal condition and a life expectancy of less than 6 months. This is covered by Medicare at 100%/no out of pocket expense to patient and all meds/supplies needed by patient for the reason they are on hospice are paid for/covered by hospice. The goal is assure quality of life of the patient in their home setting (home, retirement, inpatient hospice setting) by providing symptoms management, psychosocial and spiritual support. However, they cannot offer 24 hours care and if the family is unable to provide that care, they will have to consider personal care with out of pocket cost vs. retirement placement. We discussed the goals of hospice as a patient service and the goals of care; we discussed EOL trajectories and transitions mic the emotional impact of realizing mortality as a concrete reality from prior abstract considerations. Pt was reassured that no matter where they are along this trajectory, they are not alone - their medical team will remain by their side through their journey. Discussed the pros/cons of accepting help when especially weakened and distressed by pain-which would also help provide relief/decrease caregiver burden/strain. Discussed that he would need POLST form filled out and Ajay said he would likely be able to come in tomorrow to complete - this can be done with the primary team as I am not here on weekends. Plan to transition to comfort care. (4) Palliative care by specialist: Met with family. Provided overview of Palliative Medicine, a subspecialty that provides specialized medical care for people living with a serious illness by offering a focus on quality of life. Palliative Medicine is often conflated with hospice: I advised patient/family that Palliative and hospice can be partners but we are not the same. It is important to understand the difference so that we may be informed, and not afraid. Palliative Medicine works to improve QOL through reduction of symptom burden/more control over their illness, for both the patient and family. Palliative medicine clinicians are board certified, specially-trained and another member of the patient's medical care team. We often provide an extra layer of support because our care is based on the needs of the patient, not the prognosis; as such, it's appropriate at any age/advancing stage of a serious illness and can be provided along with curative treatment. Palliative Medicine clinicians are also trained in advanced communication methodologies, to facilitate complex discussions about advanced illness planning, which are needed to help assure that the treatment choices match the patient's goals, aka delivering Goal Concordant care. Finally, we discussed that hospice is a visiting nurse service that focuses on care delivered at the very end of life for patients with terminal illness, with life expectancy less than 6 month. (5) Acute encephalopathy: Likely multifactorial in the setting of vascular dementia, Wernicke's, and hospital delirium. Continue with Zyprexa, could consider increasing nightly dose to help with insomnia and with the goal of being able to get rid of restraints. (6) Alcohol abuse: (7) Chronic systolic congestive heart failure, NYHA class 2: Plan Comfort Care Discharge Summary & Plan of Care For Snf/SNF/PCH/PURVI Patient Name: Kimberly Davis Comfort plan of care agreed upon by: son and dtr in law Discussed with Patient/Family on: 07/14/23 Copy of this plan will be/has been given to:facility and hospice by CM Comfort plan of care parameters: 1. Patient/Family want hospice added to their care. 2. NO rehab/PT/OT 3. Strictly End of Life care only 4. NO escalation of care: do not increase oxygen, escalate therapies, etc. The focus is on comfort through end of life, assure this is accomplished with aggressive symptom management (i.e. relief of dyspnea, pain, etc.) 5. NO return to hospital 6. NO labs, imaging, surgery 7. Oral intake as desired for comfort and pleasure: NO dietary restriction 8. If difficulty urinating/commode/bedpan, ok to place Perez catheter for comfort/hygiene/skin protection AND/OR Continue Perez catheter for comfort/hygiene/skin protection 9. NO: calorie counts, artificial nutrition, feeding tubes or IV fluids Medications to continue are noted on discharge summary. 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 All aspects of the exam, assessment and plan ahve been repeated and verified by me. Thank you for allowing us to participate in the ongoing care of this patient. Please don't hesitate to call or page with any additional concerns. Dr. Sunshine Anaya DNP Director, Palliative Care History of Present Illness Attending Physician: Lexie House MD History of Present Illness 73 year old male with a past medical history of HFrEF, DM2, Severe PAD, COPD, HLD, GERD, anxiety, HTN, paroxysmal A-fib, hypothyroidism, CAD, and alcohol abuse that was initially admitted 06/19 after fall at home with concern for acute alcohol intoxication. He remains admitted for acute encephalopathy, which is likely multifactorial. Concern early in the stay for acute alcohol withdrawal. Thiamine found to be low, so concern for Wernicke's. MRI brain with multiple old strokes, so also concern that vascular dementia could be contributi ng. Given his length of stay, also possible that there is a superimposed hospital delirium. Pt seen at bedside this morning. Arousable. Oriented to person. Denies any acute complaints. Fell asleep/started snoring, multiple times while talking with him. Allergies Allergy/AdvReac Type Severity Reaction Status Date / Time No Known Allergies Allergy Verified 06/09/23 12:23 Home Medications Medication Instructions Recorded Confirmed Type Shower Chair #1 ea 08/19/22 02/20/23 Rx albuterol sulfate 90 mcg/actuation 2 puff inhalation Q4H PRN 10/20/22 06/09/23 Rx aerosol inhaler Wheezing/Dyspnea #8.5 grams apixaban 5 mg tablet (Eliquis) 5 mg PO BID 30 days #60 tabs 10/24/22 06/09/23 Rx atorvastatin 40 mg tablet 40 mg PO DAILY #30 tabs 10/24/22 06/09/23 Rx clopidogrel 75 mg tablet 75 mg PO QAM 30 days #30 tabs 10/24/22 06/09/23 Rx enalapril maleate 10 mg tablet 10 mg PO DAILY 30 days #30 tabs 10/24/22 06/09/23 Rx fluticasone 250 mcg-salmeterol 50 1 inh inhalation BID #60 ea 10/24/22 06/09/23 Rx mcg/dose blistr powdr for inhalation (Advair Diskus) furosemide 20 mg tablet 40 mg (2 x 20 mg) PO DAILY #60 tabs 10/24/22 06/09/23 Rx metoprolol succinate 100 mg 100 mg PO DAILY #30 tabs 10/24/22 06/09/23 Rx tablet,extended release 24 hr potassium chloride 10 mEq 10 meq PO DAILY #30 tabs 10/25/22 06/09/23 Rx tablet,extended release gabapentin 100 mg capsule 100 mg PO TID 01/29/23 06/09/23 History nitroglycerin 0.4 mg sublingual 0.4 mg sublingual Q5M PRN chest 03/22/23 06/09/23 Rx tablet (Nitrostat) pain #25 tabs dapagliflozin propanediol 10 mg 10 mg PO DAILY 05/05/23 06/09/23 History tablet (Farxiga) clotrimazole 1 % topical cream 1 applic EXT BID apply to your 05/15/23 06/09/23 Rx feet and between toes bilateral feet #30 grams famotidine 20 mg tablet 20 mg PO BID #60 tabs 05/15/23 06/09/23 Rx folic acid 1 mg tablet 1 mg PO DAILY #30 tabs 05/15/23 06/09/23 Rx insulin glargine 100 unit/mL (3 10 unit (0.1 mL) subcut DAILY #15 05/15/23 06/09/23 Rx mL) subcutaneous pen (Lantus mL Solostar U-100 Insulin) levothyroxine 50 mcg tablet 50 mcg PO DAILYBB #30 tabs 05/15/23 06/09/23 Rx (Synthroid) thiamine HCl (vitamin B1) 100 mg 100 mg PO QAM #30 tabs 05/15/23 06/09/23 Rx tablet metoprolol succinate 25 mg 25 mg PO BID 05/30/23 06/09/23 History tablet,extended release 24 hr Patient History Medical History (Updated 07/15/23 @ 02:41 by Sunshine Anaya DNP) Elevated lactic acid level Anemia CAD (coronary atherosclerotic disease) Fall Hyponatremia NSTEMI (non-ST elevated myocardial infarction) T2DM (type 2 diabetes mellitus) History of anesthesia reaction "my heart started to race" [facility]) Oste[facility] [place] (hard of hearing) History of myocardial infarction 1980sPoor historian History of stroke 09/2021 - no deficitsPAD (peripheral artery disease) Alcohol abuse Acute hyponatremia Acute kidney injury DVT prophylaxis Acute systolic heart failure Noncompliance Increasing shortness of breath Elevated troponin Atrial fibrillation follows with [place] cardioHypervolemia COPD (chronic obstructive pulmonary disease) CHF (congestive heart failure) NICM (nonischemic cardiomyopathy) Alcohol abuse HTN (hypertension) Anxiety GERD (gastroesophageal reflux disease) CKD (chronic kidney disease), stage III Left ventricular dysfunction Syndesmotic disruption of right ankle Fracture dislocation of right ankle History of left heart catheterization (LHC) "nonocclusive CAD, normal LV function"Alcohol abuse HLD (hyperlipidemia) DM2 (diabetes mellitus, type 2) COPD (chronic obstructive pulmonary disease) Surgical History History of non-cataract eye surgery History of cervical spinal surgery ROM WNLHistory of vascular surgery History of esophagogastroduodenoscopy (EGD) History of colonoscopy History of cardiac cath 09/2021 [place] - 1 stent 2008-nonocclussive CADHistory of ankle surgery Family History Brother Pancreatic cancer CancerMother Diabetes Myocardial infarctionSister DiabetesFather Heart disease Myocardial infarctionOther No family history of adverse response to anesthesia Denies family history of Ovarian cancer Prostate cancer Breast cancer Colorectal cancer Social History Smoking Status: Former smoker Tobacco Type: Cigarettes Second Hand Exposure: Yes; Do You Dip or Chew Tobacco: No; Hx Alcohol Use: Yes Alcohol type: beer Alcohol Intake Frequency: 4 or More x per/Week Hx Substance Use: No (unknown) Preferred Language: Ug[place] Communication Ability: Effective Visual Impairment: No Limitations Hearing Ability: Hard of Hearing Education Program Specialist Required: No Beliefs That Will Affect Care: None marital status: Single Current Living Situation: Alone current occupational status: retired How many Children do You have: 4 Other Information That Helps Us Care for You: No Feels Safe at Home: Yes Safety Concerns: Feels Safe At This Time Childhood Exposure to Second-Hand Smoke: Yes caffeine: Yes (coffee) during the past year weight has: remained stable Dental Care, Regularly: No Physical Activity Frequency: Daily Seatbelt Use: always Sunscreen Use: No Assistive Devices: Cane and Walker Review of Systems Review of Systems: As per above. Limited due to AMS. Physical Exam Physical Exam: Constitutional: no resp distress, mitt restraints in place , restless and agitated/trying to remove mitts, trying to remove foam boots HEENT: NCAT, no conjunctival injection CV: regular rhythm, no murmur appreciated, extremities well-perfused, no LE edema Resp: CTABL, no wheezes/rales/rhonchi appreciated, no increased work of breathing GI: soft, nondistended, nontender MSK: no gross deformities appreciated Skin: warm, dry, no rash appreciated Neuro: arousable, oriented to self , confused otherwise, garbled speech at times, unable to follow commands Results & Data Vital Signs (Past 12 Hours) Vital Signs Temp Pulse Resp BP Pulse Ox O2 Del Method 07/14/23 07:49 36.3 C L 78 20 144/92 H 94 Room Air Laboratory Results data reviewed Diagnostic Findings data reviewed Signed By: <Electronically signed by Sunshine Anaya DNP> Allergies Allergy/AdvReac Type Severity Reaction Status Date / Time No Known Allergies Allergy Verified 06/09/23 12:23 Home Medications Medication Instructions Recorded Confirmed Type Shower Chair #1 ea 08/19/22 02/20/23 Rx albuterol sulfate 90 mcg/actuation 2 puff inhalation Q4H PRN 10/20/22 06/09/23 Rx aerosol inhaler Wheezing/Dyspnea #8.5 grams apixaban 5 mg tablet (Eliquis) 5 mg PO BID 30 days #60 tabs 10/24/22 06/09/23 Rx atorvastatin 40 mg tablet 40 mg PO DAILY #30 tabs 10/24/22 06/09/23 Rx clopidogrel 75 mg tablet 75 mg PO QAM 30 days #30 tabs 10/24/22 06/09/23 Rx enalapril maleate 10 mg tablet 10 mg PO DAILY 30 days #30 tabs 10/24/22 06/09/23 Rx fluticasone 250 mcg-salmeterol 50 1 inh inhalation BID #60 ea 10/24/22 06/09/23 Rx mcg/dose blistr powdr for inhalation (Advair Diskus) furosemide 20 mg tablet 40 mg (2 x 20 mg) PO DAILY #60 tabs 10/24/22 06/09/23 Rx metoprolol succinate 100 mg 100 mg PO DAILY #30 tabs 10/24/22 06/09/23 Rx tablet,extended release 24 hr potassium chloride 10 mEq 10 meq PO DAILY #30 tabs 10/25/22 06/09/23 Rx tablet,extended release gabapentin 100 mg capsule 100 mg PO TID 01/29/23 06/09/23 History nitroglycerin 0.4 mg sublingual 0.4 mg sublingual Q5M PRN chest 03/22/23 06/09/23 Rx tablet (Nitrostat) pain #25 tabs dapagliflozin propanediol 10 mg 10 mg PO DAILY 05/05/23 06/09/23 History tablet (Farxiga) clotrimazole 1 % topical cream 1 applic EXT BID apply to your 05/15/23 06/09/23 Rx feet and between toes bilateral feet #30 grams famotidine 20 mg tablet 20 mg PO BID #60 tabs 05/15/23 06/09/23 Rx folic acid 1 mg tablet 1 mg PO DAILY #30 tabs 05/15/23 06/09/23 Rx insulin glargine 100 unit/mL (3 10 unit (0.1 mL) subcut DAILY #15 05/15/23 06/09/23 Rx mL) subcutaneous pen (Lantus mL Solostar U-100 Insulin) levothyroxine 50 mcg tablet 50 mcg PO DAILYBB #30 tabs 05/15/23 06/09/23 Rx (Synthroid) thiamine HCl (vitamin B1) 100 mg 100 mg PO QAM #30 tabs 05/15/23 06/09/23 Rx tablet metoprolol succinate 25 mg 25 mg PO BID 05/30/23 06/09/23 History tablet,extended release 24 hr Patient History Medical History (Updated 07/15/23 @ 02:41 by Sunshine Anaya DNP) Elevated lactic acid level Anemia CAD (coronary atherosclerotic disease) Fall Hyponatremia NSTEMI (non-ST elevated myocardial infarction) T2DM (type 2 diabetes mellitus) History of anesthesia reaction "my heart started to race" - during eye surgery 1980s [facility] PAD (peripheral artery disease) Osteoarthritis [place] (hard of hearing) History of myocardial infarction 1980s Poor historian History of stroke 09/2021 - no deficits PAD (peripheral artery disease) Alcohol abuse Acute hyponatremia Acute kidney injury DVT prophylaxis Acute systolic heart failure Noncompliance Increasing shortness of breath Elevated troponin Atrial fibrillation follows with [facility] Hypervolemia COPD (chronic obstructive pulmonary disease) CHF (congestive heart failure) NICM (nonischemic cardiomyopathy) Alcohol abuse HTN (hypertension) Anxiety GERD (gastroesophageal reflux disease) CKD (chronic kidney disease), stage III Left ventricular dysfunction Syndesmotic disruption of right ankle Fracture dislocation of right ankle History of left heart catheterization (LHC) "nonocclusive CAD, normal LV function" Alcohol abuse HLD (hyperlipidemia) DM2 (diabetes mellitus, type 2) COPD (chronic obstructive pulmonary disease) Surgical History History of non-cataract eye surgery History of cervical spinal surgery ROM WNL History of vascular surgery History of esophagogastroduodenoscopy (EGD) History of colonoscopy History of cardiac cath 09/2021 [place] - 1 stent 2008-nonocclussive CAD History of ankle surgery Family History Brother Pancreatic cancer Cancer Mother Diabetes Myocardial infarction Sister Diabetes Father Heart disease Myocardial infarction Other No family history of adverse response to anesthesia Denies family history of Ovarian cancer Prostate cancer Breast cancer Colorectal cancer Social History Smoking Status: Former smoker Tobacco Type: Cigarettes Second Hand Exposure: Yes; Do You Dip or Chew Tobacco: No; Hx Alcohol Use: Yes Alcohol type: beer Alcohol Intake Frequency: 4 or More x per/Week Hx Substance Use: No (unknown) Preferred Language: Ugandan Communication Ability: Effective Visual Impairment: No Limitations Hearing Ability: Hard of Hearing Education Program Specialist Required: No Beliefs That Will Affect Care: None marital status: Single Current Living Situation: Alone current occupational status: retired How many Children do You have: 4 Other Information That Helps Us Care for You: No Feels Safe at Home: Yes Safety Concerns: Feels Safe At This Time Childhood Exposure to Second-Hand Smoke: Yes caffeine: Yes (coffee) during the past year weight has: remained stable Dental Care, Regularly: No Physical Activity Frequency: Daily Seatbelt Use: always Sunscreen Use: No Assistive Devices: Cane and Walker Results & Data Vital Signs (Past 12 Hours) Vital Signs Pulse BP O2 Del Method 07/14/23 21:02 Room Air 07/14/23 20:23 84 135/87 Laboratory Results see HPI Diagnostic Findings see HPI PG Care Time/CCT Total # of Minutes Spent Total Time Spent: 95 Total Time Spent with Patient: Total time spent is greater than 50% in coordination of care (as documented) at patient's floor/unit and/or counseling patient: I spent 95 minutes overall addressing this case: 20 min in medical data review/discussion with referring provider(s) and/or preparation for the visit 20 min in direct interaction with the patient/exam 25 min in Advance Care Planning/Goals of Care discussions as detailed above in note (must be >16min) 15 min in subsequent review and synthesis of assessment and plan 15 min communicating with other providers regarding the patient's case: Advanced Care Planning 35919 Advanced Care Planning 30 [place] [address] IN/OBS CONSULT LVL 5,80M Patient Type New History Comprehensive Exam Comprehensive Medical Decision Making High Complexity Diagnoses Confusion R41.0 Generalized weakness R53.1 Advanced care planning/counseling discussion Z71.89 Palliative care by specialist Z51.5 Elevated troponin R77.8 CHF (congestive heart failure) I50.9 PSVT (paroxysmal supraventricular tachycardia) I47.1 Overweight (BMI 25.0-29.9) E66.3 Alcohol abuse F10.10 Additional Codes Advanced Care Planning - 06778 Advanced Care Planning 30 Min: 24866 Advanced Care Planning 30 Min ([id number])
[2023-07-15] MEDS: LEVOTHYROXINE SODIUM 75 MCG TABLET PO SCH (05:52)
[2023-07-15] MEDS: LORazepam 1 MG in SYRINGE 0.5 ML IV PRN ×4 (06:52→23:08)
[2023-07-15] MEDS: ENALAPRIL MALEATE 10 MG TAB PO SCH (08:46)
[2023-07-15] MEDS: FOLIC ACID 1 MG TAB PO SCH (08:47)
[2023-07-15] MEDS: FLUTICASONE/VILANTEROL 200/25MCG 14 PUFFS/INHALER INH SCH (08:47)
[2023-07-15] MEDS: THIAMINE HCL 100 MG TAB PO SCH ×2 (08:48→19:29)
[2023-07-15] MEDS: PANTOprazole 40 MG TAB PO SCH ×2 (08:48→19:29)
[2023-07-15] MEDS: METOPROLOL SUCC 50MG EXT REL TAB PO SCH ×2 (08:48→19:29)
[2023-07-15] MEDS: OLANZapine 5 MG TABLET PO SCH ×2 (08:48→19:29)
[2023-07-15] MEDS: CLOTRIMAZOLE 1% CR 15 GM TUBE EXT SCH ×2 (08:49→20:07)
[2023-07-15] MEDS: MoRPHine SULFATE 2 MG/ML CARP IV PRN ×2 (10:55→21:35)
--- NOTE | 2023-07-15 15:36 | Hospitalist Progress Note ---
Date of Service July 15, 2023 Assessment & Plan (1) Acute encephalopathy: Plan: Patient has had altered mental status from the time of admission on 06/19. Ongoing. Waxing/waning his entire stay. Said to have improved from admission to 07/05, then worsened and more agitated related to epistaxis/nasal packing and recurrent urinary retention requiring cordoba catheter. acute metabolic encephalopathy earlier in the stay likely 2nd to etoh withdrawal +/- Wernicke's +/- sepsis +/- combination of factors. CT head 06/19/23 without acute findings. 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 He has large ventricles and significant atrophy. At this point presents as neurodegenerative disorder - probably Wernicke's and vascular dementia with superimposed hospital delirium. 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 Palliative consult placed and decision made with family to pursue SPIN INSTRUCTOR-appreciate consult Increase olanzapine to 7.5mg po bid Lorazepam for anxiety and morphine for pain or breathlessness glycopyrrolate for secretions Stop unnecessary meds (2) Urine retention: Plan: Continue Cordoba on SPIN INSTRUCTOR (3) Chest pain: Plan: c/o chest pain afternoon 07/08 and again on the morning of 07/11-RN administered SL nitro, resolved quickly -EKG tracing reviewed on 07/08 - unchanged from previous with incomplete RBBB, septal Qs, PVCs, p waves not easily visible but regular with rate of 90 ECG on 07/11 with atrial fibrillation, rate 94, LAFB, no ischemic changes -could have been angina episode but no e/o ACS, more likely GI related such as reflux with esophageal spasm which could also be relieved by nitroglycerin -Continue PPI but increased to twice daily (4) Acute anterior epistaxis: Plan: Previously was having minor epistaxis almost daily per nursing staff AM 07/05 severe epistaxis not responsive to 3 rounds of 3 squirts of afrin and prolonged holding pressure, plavix and apixaban held, placed rhinorocket He removed the rhinorocket 07/07 AM on his own, has not rebled thus far, requiring mitts to prevent ongoing picking and from pulling on his cordoba catheter -melena stool 07/06 result of swallowed blood -CBC with stable hemoglobin, thrombocytopenia now resolved -resumed apixaban 07/09, now will discontinue on SPIN INSTRUCTOR (5) CHF (congestive heart failure): Plan: Chronic HFrEF-most recent echo on 05/12/2023 revealed LVEF of 25-30%, elevated RVSP at 4050mmHg; mild to moderate gay valvular regurgitation Euvolemic, peripheral edema resolved cont metoprolol succinate increased to 50mg BID due to near-daily runs of NSVT (vs a.fib w/ abberancy) cont enalapril 10mg daily stopped lasix, KCl No need for ICD or Cardiology f/u on comfort measures (6) T2DM (type 2 diabetes mellitus): Plan: Last A1c 7.4% on 05/06/2023 liberalize diet on SPIN INSTRUCTOR dc empaglifozin , no need for insulin or glucose checks on SPIN INSTRUCTOR (7) Pneumonia: Plan: 06/26/23 cxr with findings concerning for pneumonia. Completed antibiotics (8) Thiamine deficiency: Plan: B1 level was 7 (8+normal). 2nd to etoh abuse. 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 Family reports he has had confusion for months. Confusion has been present entire admission. This is despite treatment of all medical issues. He continues to confabulate. He has received high dose thiamine earlier in the stay and now is on thiamine 100 mg bid since 07/10 (9) PAD (peripheral artery disease): Plan: s/p arteriogram 06/28/[address] Moreno -- see his full procedure report-with SEVERE PAD of both legs with compromised flow below the knees b/l Dr Moreno does not feel intervention could be attempted at [facility]-he would need tertiary care center for such-this was discussed this with his sister by phone PM of 06/28 Has been on apixaban and plavix since 02/2023 per review of fill reports Previous hospitalist spoke with Dr Elida Carter, vascular surgery at [facility], on 06/30/23 who reviewed his arteriogram images via PACS to [place]. After lengthy discussion with Dr Carter, determined that urgent or emergent Tx to [place] was unnecessary. We could refer to Dr Ventura locally OR to [facility] in [place] as outpatient Patient denies any rest pain of his feet/legs, extremities often cool and can be dusky but no wounds Previous hospitalist discussed anticoagulation/antiplatelet with Dr. Moreno 07/06 with respect to the persistent/recurrent then severe epistaxis. Stopped plavix and resumed apixaban alone Now STOP antiplatelet, ELiquis, and statin on SPIN INSTRUCTOR (10) Fall: Plan: Prior to presentation. Fortunately no major injuries from this fall. Thought to have been 2nd to recent etoh use. By report he was found down with 12+ beer cans surrounding him on the floor. CPK was normal, MRI brain without intracranial hemorrhage Can't rule out other causes of his fall - subacute CVA, B1 def, alcohol-induced peripheral neuropathy, cerebellar atrophy from etoh abuse, etc. (11) Alcohol abuse: Plan: Known h/o alcoholism with heavy drinking just prior to admission.he was treated for alcohol withdrawal and resolved Thiamine level returned low - certainly could have Wernicke's. Replacing thiamine as above stopped gabapentin in case contributing to worsened mental status Cont folic acid supplementation. (12) Acute hyponatremia: Plan: Severe. Na level 118 at admission secondary to beer Potomania-now resolved and sodium levels are normal can remove fluid restriction now on SPIN INSTRUCTOR no further labs to be drawn (13) Abnormal LFTs: Plan: Presumed 2nd to etoh use or passive congestion from CHF-now much improved Recent ammonia level wnl (14) Elevated troponin: Plan: Troponin 67.2-->63.4 on arrival No chest pain, no signs of ACS Likely 2nd to myocardial demand ischemia in the setting of his fall, etc. (15) PAF (paroxysmal atrial fibrillation): Plan: EKG on arrival showed A-fib with RVR, now rate controlled Continue metoprolol discontinue apixaban on SPIN INSTRUCTOR (16) HTN (hypertension): Plan: BPs acceptable Continue metoprolol, enalapril (17) COPD (chronic obstructive pulmonary disease): Plan: Continue home inhalers as needed No evidence of exacerbation at this time (18) Hypothyroidism: Plan: Continue levothyroxine TSH mildly elevated last 2 checks thus increased synthroid to 75mcg daily (19) GERD (gastroesophageal reflux disease): Plan: Continue Protonix (20) CAD (coronary atherosclerotic disease): Plan: Hx of cardiac cath on 02/22/23 -Moderate nonobstructive multivessel coronary artery disease, 30% heavily calcified distal left main by IVUS, 40-50% heavily calcified ostial circumflex by IVUS (nonobstructive by IFR 0.95), 30% mid LAD in-stent restenosis (nonobstructive by IFR 0.95). Jailed D2 60 to 70% ostial Medical management advised at that time Continue metoprolol, but discontinue atorvastatin, apixaban, plavix on comfort measures (21) Anemia: Plan: Hemoglobin stable at 11.3 no further labs (22) NSVT (nonsustained ventricular tachycardia): Plan: has frequent episodes of NSVT vs AF with aberrancy. continue metoprolol which was increased in dose no ICD needed now on SPIN INSTRUCTOR Plan DVT prophylaxis-Eliquis Disposition-continued stay for ongoing encephalopathy, now on SPIN INSTRUCTOR and will look for termite treater helper care with hospice Will complete the POLST form with family today. Admission and Anticipated Discharge Date Admission Date: June 19, 2023 Subjective Patient is sleeping in bed. Appears to be comfortable. Review of Systems Review of Systems: Unobtainable due to cognitive status Physical Exam Physical Exam: General appearance: Appears to be comfortable, sleeping. Did not wake him up since he is comfort care. Results & Data Results & Data Vital Signs (Past 12 Hours) Vital Signs O2 Del Method 07/15/23 07:00 Room Air PG Care Time/CCT Total # of Minutes Spent Total Time Spent with Patient: Total time spent is greater than 50% in coordination of care (as documented) at patient's floor/unit and/or counseling patient: Coding Level of Care Code 32139 SUB INP/OBS CARE 2/35MIN Diagnoses Acute encephalopathy G93.40 Urine retention R33.9 Chest pain R07.9 Acute anterior epistaxis R04.0 CHF (congestive heart failure) I50.9 T2DM (type 2 diabetes mellitus) E11.9 Pneumonia J18.9 Thiamine deficiency E51.9 PAD (peripheral artery disease) I73.9 Fall W19.XXXA Alcohol abuse F10.10 Acute hyponatremia E87.1 Abnormal LFTs R79.89 Elevated troponin R77.8 PAF (paroxysmal atrial fibrillation) I48.0 HTN (hypertension) I10 COPD (chronic obstructive pulmonary disease) J44.9 Hypothyroidism E03.9 GERD (gastroesophageal reflux disease) K21.9 CAD (coronary atherosclerotic disease) I25.10 Anemia D64.9 NSVT (nonsustained ventricular tachycardia) I47.29
[2023-07-16] MEDS: MoRPHine SULFATE 2 MG/ML CARP IV PRN (00:52)
--- NOTE | 2023-07-16 03:51 | Death Pronouncement Note ---
Date of Service July 16, 2023 Pronouncement Note Admission Date Admission Date: June 19, 2023 Summary Additional details: I was called to pronounce the of Edi Davis : 1950 by nursing (September Jenna) on 07/16/2023 at 0321. Upon entering the room, the patient was found to be in a terminal state. Patient was unresponsive to verbal and tactile stimuli. Patient unresponsive to corneal and pupillary reflexes. On cardiopulmonary exam, no carotid or radial pulses found and pt without spontaneous heart tones or respirations. Time of was pronounced by me on 07/16/2023 at 0330. Attending physician was notified. Next of kin, son Ajay and [id number] Henna, were notified via phone by myself. Additional Data Attending physician: Javier Hankins MD Resident Activity Tracking Resident Involvement: Resident Care Provided Care Provided: Adult Hospital Medicine
--- NOTE | 2023-07-16 07:47 | Discharge Summary ---
Date of Service July 16, 2023 Admission HPI Per Admitting Provider Edi is a 73-year-old male with PMH of COPD, HLD, GERD, anxiety, HTN, paroxysmal A-fib, CHF, hypothyroidism, ACS, T2DM, and alcohol abuse. He presented via EMS for a fall on 06/19 and was reportedly unable to get up for 6 hours. Patient is a poor historian on arrival. Patient was found on the ground surrounded by 14 beer cans, and confirms on arrival that he drank around 14 beers last night; denies hard alcohol use. Zofran 4 mg and nebulizer was given en route. Patient thinks his bilateral lower quadrant abdominal pain is due to drinking "too much booze". However, when asked to point to where the pain is at, the patient points to suprapubic region. He is unsure if he took his morning medications; he is unable to provide an accurate report/record of his med list given his current state. He is unable to confirm or deny if he has had prior episodes of alcohol withdrawal or seizures. He is unable to relay history of whether he fell, struck his head, loss conscious, or how long he was down for. After insertion of Cordoba catheter in the ED, patient reports his abdominal pain has somewhat subsided, but reports that it is still a "burning" pain that comes and goes intermittently. Patient lives alone. He denies at home oxygen use. He has difficulty focusing and responding to questions at time of admission. Patient is hypertensive at 169/111, tachycardic at 107 bpm, and tachypneic at 25 RPM at time of admission. ED course: Acetaminophen 1000 mg IV NSS 1650 mL IV Cordoba catheter placed ROS: Difficulty to assess given patient's current status Patient endorses lower abdominal/suprapubic pain, burning with urination (catheter in place), and mild SOB at rest. Patient denies fever, chills, sweating, chest pain, nausea, vomiting, or numbness/tingling/pain in arms or legs. Attempted to call [id number] to provide updates, but was unable to reach them. Nursing staff reported that they would be in tomorrow on 06/20. 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 with vascular dementia and superimposed with hospital-acquired delirium Discharge Exam Patient Discharge Data Allergies Allergy/AdvReac Type Severity Reaction Status Date / Time No Known Allergies Allergy Verified 06/09/23 12:23 Consultations 06/19/23 13:41 ED Decision to Admit Stat 06/21/23 07:40 Consult Vascular Surgery Routine 07/13/23 17:52 Consult Palliative Care Routine Procedures Performed Operation Date: 06/28/23 15:00 Actual Procedures p Angio Extremity Bilateral - Ace Moreno MD s Aortogram, Abdominal - Ace Moreno MD s SC Select Cath ALEP 3rd Order - Ace Moreno MD s Intro of Catheter, Aorta - MD odette Castañeda Ultrasound Vascular Access - Ace Moreno MD Ordered Studies 06/19/23 11:00 CT Abd and Pelvis [CT abd pelvis wo con] Stat CT cervical spine wo con Stat CT head/brain wo con Stat 06/19/23 12:16 CT chest diagnostic wo con Stat 06/19/23 16:12 US arterial duplex LE LT Urgent 06/27/23 00:10 MR brain wo con Urgent 06/27/23 11:18 FL video swallow Routine 06/28/23 14:37 CL Cath Imgs for PACS use only Stat Hospital Course (1) Acute encephalopathy: Patient has had altered mental status from the time of admission on 06/19. Ongoing. Waxing/waning his entire stay. Said to have improved from admission to 07/05, then worsened and more agitated related to epistaxis/nasal packing and recurrent urinary retention requiring cordoba catheter. acute metabolic encephalopathy earlier in the stay likely 2nd to etoh withdrawal +/- Wernicke's +/- sepsis +/- combination of factors. CT head 06/19/23 without acute findings. 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 He has large ventricles and significant atrophy. At this point presents as neurodegenerative disorder - probably Wernicke's and vascular dementia with superimposed hospital delirium. 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 Palliative consult placed and decision made with family to pursue TRENCHER DRIVER-appreciate consult POLST form was completed with the family on 07/15 Patient peacefully on 07/16 (2) Urine retention: Cordoba catheter was continued on CML (3) Acute anterior epistaxis: Previously was having minor epistaxis almost daily per nursing staff AM 07/05 severe epistaxis not responsive to 3 rounds of 3 squirts of afrin and prolonged holding pressure, plavix and apixaban held, placed rhinorocket He removed the rhinorocket 07/07 AM on his own, has not rebled thus far, requiring mitts to prevent ongoing picking and from pulling on his cordoba catheter -melena stool 07/06 result of swallowed blood -resumed apixaban 07/09, but later discontinued on TRENCHER DRIVER (4) CHF (congestive heart failure): Chronic HFrEF-most recent echo on 05/12/2023 revealed LVEF of 25-30%, elevated RVSP at 4050mmHg; mild to moderate gay valvular regurgitation Euvolemic, peripheral edema resolved No need for ICD or Cardiology f/u on comfort measures (5) Pneumonia: 06/26/23 cxr with findings concerning for pneumonia. Completed antibiotics (6) Thiamine deficiency: B1 level was 7 (8+normal). 2nd to etoh abuse. 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 Family reports he has had confusion for months. Confusion has been present entire admission. This is despite treatment of all medical issues. He continues to confabulate. He has received high dose thiamine earlier in the stay (7) PAD (peripheral artery disease): s/p arteriogram 06/28/[address] Moreno -- see his full procedure report-with SEVERE PAD of both legs with compromised flow below the knees b/l Dr Moreno does not feel intervention could be attempted at [facility]-he would need tertiary care center for such-this was discussed this with his sister by phone PM of 06/28 Has been on apixaban and plavix since 02/2023 per review of fill reports Previous hospitalist spoke with Dr Elida Carter, vascular surgery at [facility], on 06/30/23 who reviewed his arteriogram images via PACS to [place]. After lengthy discussion with Dr Carter, determined that urgent or emergent Tx to [place] was unnecessary. We could refer to Dr Ventura locally OR to [facility] in [place] as outpatient Patient denies any rest pain of his feet/legs, extremities often cool and can be dusky but no wounds Previous hospitalist discussed anticoagulation/antiplatelet with Dr. Moreno 07/06 with respect to the persistent/recurrent then severe epistaxis. Stopped plavix and resumed apixaban alone Now STOP antiplatelet, ELiquis, and statin on TRENCHER DRIVER (8) Fall: Prior to presentation. Fortunately no major injuries from this fall. Thought to have been 2nd to recent etoh use. By report he was found down with 12+ beer cans surrounding him on the floor. CPK was normal, MRI brain without intracranial hemorrhage Can't rule out other causes of his fall - subacute CVA, B1 def, alcohol-induced peripheral neuropathy, cerebellar atrophy from etoh abuse, etc. (9) Alcohol abuse: Known h/o alcoholism with heavy drinking just prior to admission.he was treated for alcohol withdrawal and resolved Thiamine level returned low - certainly could have Wernicke's. Replaced thiamine as above stopped gabapentin in case contributing to worsened mental status Continued folic acid supplementation. Plan I came back to work today to find out that the patient had overnight. I completed his certificate and summary. Total Time Total Time Spent Total Time Spent (In Minutes): 35 Discharge Plan Discharge Items Patient Disposition: Other Date/Time: 07/16/23 03:30 Coding Level of Care Code 94744 INP/OBS DISCH >30 MIN Diagnoses Acute encephalopathy G93.40 Urine retention R33.9 Acute anterior epistaxis R04.0 CHF (congestive heart failure) I50.9 Pneumonia J18.9 Thiamine deficiency E51.9 PAD (peripheral artery disease) I73.9 Fall W19.XXXA Alcohol abuse F10.10
== END 2023-07-16 04:15 | disposition expired | DRG 896 ==
LOC: ED 10:31 → SUATTDRO 14:11 → EDINP 14:11 → 2S 16:18 → 2E 19:56 → 3N 07-05 11:22
PROC: [UNRECOGNIZED PROCEDURE] (2023-06-28 15:00)
PROC: CLB.AEB (2023-06-28 15:00)